=== PATIENT | female | born 1950 | race Caucasian/White ===

== ENCOUNTER 2019-12-17 10:12 | Outpatient (REF) | payer MEDICARE, SELFPAY ==
[2019-12-17 11:11] LABS: MANUAL DIFF FLAG NO
[2019-12-17 11:15] LABS: Basophils Absolute Auto 0.1 X10*3/uL (0.0-0.2); Basophils Percent Auto 1.3 % (0-2); Eosinophils Percent Auto 0.3 % (0-4); Hemoglobin 13.4 g/dl (12.0-16.0); Imm Gran Abs Auto 0.02 X10*3/uL (0.00-0.03); Imm Gran Pct Auto 0.3 % (0.0-0.4); Lymphocytes Percent Auto 43.6 % (20-40); Mean Corpuscular HGB Conc 35.3 g/dl (31.0-35.0); Mean Corpuscular Hemoglobin 40.4 pg (27.0-33.0); Mean Platelet Volume 11.2 fL (9.4-12.3); Monocytes Absolute Auto 0.6 X10*3/uL (0.1-1.2); Monocytes Percent Auto 8.7 % (2-11); NRBC Pct Auto 0.3 /100WBC (0.0-0.2); Neutrophils Absolute Auto 3.2 X10*3/uL (2.0-8.3); Neutrophils Percent Auto 45.8 % (45-73); Platelet Count 194 X10*3/uL (160-400); Red Blood Count 3.32 X10*6/uL (4.20-5.50); Red Cell Distribution Width 13.8 % (11.0-16.0); White Blood Count 6.9 X10*3/uL (4.8-10.8)
[2019-12-17 11:34] LABS: Mean Corpuscular Volume 114.5 fL (80-98)
[2019-12-17 12:04] LABS: Erythrocyte Sedimentation Rate 2 MM/HR (0-20)
[2019-12-17 12:25] LABS: Free T4 (Free Thyroxine) 1.89 ng/dL (0.71-1.85); TSH reflex Free T4 0.01 mIU/mL (0.32-4.0)
[2019-12-17 12:27] LABS: Alanine Aminotransferase 10 U/L (0-31); Albumin Level 4.2 g/dL (3.5-5.0); Alkaline Phosphatase 89 U/L (39-117); Anion Gap 14 (12-20); Aspartate Amino Transferase 11 U/L (5-31); Bilirubin Total 0.7 mg/dL (0.0-1.0); Blood Urea Nitrogen 11 mg/dL (9-16); Calcium 8.9 mg/dL (8.4-10.2); Carbon Dioxide 27 mmol/L (22-29); Chloride 102 mmol/L (96-108); Cholesterol 170 mg/dL; Estimated Glomerular Filt Rate 51; Glucose Fasting 104 mg/dL (60-99); HDL Cholesterol 53 mg/dL; LDL Cholesterol Calculated 88 mg/dl; Lactate Dehydrogenase 131 U/L (122-220); Potassium 4.5 mmol/l (3.3-5.1); Sodium 138 mmol/L (135-145); Total Protein 5.7 g/dL (6.5-8.0); Triglycerides 145 mg/dL
== END 2019-12-17 10:13 | disposition home or self-care (01) ==
LOC: HO.LAB 10:12
PROVIDERS: PCP Internal Medicine Medical Oncology; Visit Provider Internal Medicine Medical Oncology
DX: C85.10 Unspecified B-cell lymphoma, unspecified site (principal); E11.9 Type 2 diabetes mellitus without complications; E78.5 Hyperlipidemia, unspecified
CPT/HCPCS: 36415; 80053; 80061; 83615; 84439; 84443; 85025; 85652

== ENCOUNTER 2020-01-24 09:39 | Outpatient (REF) | payer MEDICARE, SELFPAY ==
[2020-01-24 10:12] LABS: MANUAL DIFF FLAG NO
[2020-01-24 10:18] LABS: Basophils Absolute Auto 0.1 X10*3/uL (0.0-0.2); Eosinophils Percent Auto 0.6 % (0-4); Hematocrit 38.6 % (37-47); Hemoglobin 13.6 g/dl (12.0-16.0); Imm Gran Abs Auto 0.02 X10*3/uL (0.00-0.03); Imm Gran Pct Auto 0.4 % (0.0-0.4); Lymphocytes Absolute Auto 1.5 X10*3/uL (1.2-4.9); Lymphocytes Percent Auto 30.6 % (20-40); Mean Corpuscular HGB Conc 35.2 g/dl (31.0-35.0); Monocytes Absolute Auto 0.5 X10*3/uL (0.1-1.2); Monocytes Percent Auto 10.2 % (2-11); Neutrophils Absolute Auto 2.8 X10*3/uL (2.0-8.3); Neutrophils Percent Auto 56.2 % (45-73); Platelet Count 157 X10*3/uL (160-400)
[2020-01-24 10:21] LABS: Mean Corpuscular Volume 113.5 fL (80-98)
[2020-01-24 10:31] LABS: Alanine Aminotransferase 12 U/L (0-31); Albumin Level 4.5 g/dL (3.5-5.0); Alkaline Phosphatase 89 U/L (39-117); Anion Gap 14 (12-20); Aspartate Amino Transferase 13 U/L (5-31); Bilirubin Total 0.8 mg/dL (0.0-1.0); Blood Urea Nitrogen 8 mg/dL (9-16); Calcium 9.1 mg/dL (8.4-10.2); Carbon Dioxide 26 mmol/L (22-29); Chloride 103 mmol/L (96-108); Cholesterol 193 mg/dL; Estimated Glomerular Filt Rate 47; Glucose Fasting 142 mg/dL (60-99); HDL Cholesterol 60 mg/dL; LDL Cholesterol Calculated 111 mg/dl; Lactate Dehydrogenase 139 U/L (122-220); Potassium 4.2 mmol/l (3.3-5.1); Sodium 139 mmol/L (135-145); Total Protein 5.9 g/dL (6.5-8.0); Triglycerides 110 mg/dL
[2020-01-24 10:51] LABS: SARS COV2 IgG Negative (Negative)
[2020-01-24 10:58] LABS: Erythrocyte Sedimentation Rate 2 MM/HR (0-20)
== END 2020-01-24 09:40 | disposition home or self-care (01) ==
LOC: HO.LAB 09:39
PROVIDERS: PCP Internal Medicine Medical Oncology; Visit Provider Internal Medicine Medical Oncology
DX: C85.10 Unspecified B-cell lymphoma, unspecified site (principal); E11.9 Type 2 diabetes mellitus without complications; I10 Essential (primary) hypertension; E78.5 Hyperlipidemia, unspecified; Z20.828 Contact with and (suspected) exposure to other viral communicable diseases
CPT/HCPCS: 36415; 80053; 80061; 83615; 85025; 85652; 86769; U0003

== ENCOUNTER → 2020-01-31 10:41 | Outpatient (BNVA) | payer MEDICARE, SELFPAY | PROVIDERS: PCP Internal Medicine Medical Oncology; Referring Provider Internal Medicine Medical Oncology; Visit Provider Surgery Vascular Surgery | DX: I73.9 Peripheral vascular disease, unspecified (principal) | CPT/HCPCS: 99202 ==

== ENCOUNTER 2020-02-06 10:30 | Emergency (ER) | payer MEDICARE, SELFPAY ==
[2020-02-06 10:58] VITALS: BP 133/66; PULSE 96; RESP 16; TEMP 36; O2SAT 100; BMI 21.6
[2020-02-06 11:15] VITALS: BP 120/62; PULSE 79; RESP 16; TEMP 37.1; O2SAT 97
--- NOTE | 2020-02-06 11:48 | ED_ITS ---
HPI - General Adult General Chief complaint: Extremity Injury, Lower Stated complaint: lower extremity problem Time Seen by Provider: 02/06/20 11:05 Source: patient Mode of arrival: ambulatory Limitations: no limitations History of Present Illness HPI narrative: 69yoF c PMHx of non-Hodgkin's lymphoma in remission, peripheral artery disease, hyperlipidemia, hypothyroidism, anxiety and depression presenting to the ED c c/o discoloration of the left lateral aspect of the foot on and off for the past month with pain. Denies any injuries. Denies any fevers, chest pain, shortness of breath, palpitations, lower extremity edema. Related Data Home Medications Medication Instructions Recorded Confirmed acyclovir 400 mg tablet 400 mg PO BID 01/31/20 albuterol sulfate 90 mcg/actuation 1 puff PO Q4H PRN 01/31/20 aerosol inhaler levothyroxine 125 mcg tablet 125 mcg PO DAILY 01/31/20 lorazepam 0.5 mg tablet 0.5 mg PO BID PRN 01/31/20 oxycodone 5 mg tablet 5 mg PO Q6H PRN 01/31/20 paroxetine HCl 20 mg tablet 20 mg PO DAILY 01/31/20 trazodone 100 mg tablet 100 mg PO BEDTIME 01/31/20 Previous Rx's Medication Instructions Recorded clopidogrel 75 mg tablet 75 mg PO DAILY #30 tab 01/31/20 Allergies Allergy/AdvReac Type Severity Reaction Status Date / Time adhesive tape Allergy Unknown RASH Verified 02/06/20 10:57 bacitracin [Bacitracin] Allergy Unknown RASH Verified 02/06/20 10:57 bacitracin Allergy Unknown rash Uncoded 07/26/14 00:00 CLOTH TAPE AdvReac Mild RASH Uncoded 11/08/19 16:28 Review of Systems Review of Systems: Constitutional : No Fever, No Chills Eyes: No Eye Pain, No Swelling, No Vision Changes Cardiovascular : No Chest Pain, No SOB, No Dyspnea on Exertion, No Orthopnea, No Edema, No Palpitations Respiratory : No Cough, No Sputum, No Wheezing, No Dyspnea Gastrointestinal : No Nausea, No Vomiting, No Diarrhea, No Constipation, No abdominal Pain, No Hematochezia, No Melena Genitourinary : no irregular bleeding, No Dysuria, No Urinary Frequency, No Hematuria, No Urinary Incontinence, No Urgency, No Flank Pain, No Urinary Flow Changes, No Hesitancy Musculoskeletal : No joint pain, No Myalgias, No Joint Swelling Skin : No Skin Lesions, No rash Neuro : No Weakness, No Numbness, No Paresthesias, No Loss of Consciousness, No Dizziness, No Headache Psych : No Anxiety/Panic, No Depression, No SI/HI/AH/VH, No Social Issues, Heme/Lymph: No Bruising, No Bleeding,No Lymphadenopathy Endocrine : No Polyuria, No Polydipsia, No Temperature Intolerance Yes all other systems are reviewed and are negative ON LICENSE OF [facility] Past Medical History Attestation statement: The following information was validated with the patient. Medical History Anxiety Depression Hypothyroidism Non-Hodgkin lymphoma in remission Surgical History H/O: hysterectomy History of salpingo-oophorectomy Social History Social History Smoking Status: Current every day smoker Tobacco Type: Cigar Packs Per Day: 1 Cigarettes Per Day: 20 Years Smoked: 40 Smoked in Last 30 Days: Yes Use of substances other than those prescribed or required for medical reasons: No Advance Directives: No Advance Directives Information Provided: No Physical Exam Vital Signs: Vital Signs: Last Vital Signs Temp 98.7 F 02/06/20 11:15 Pulse 79 02/06/20 11:15 Resp 16 02/06/20 11:15 BP 120/62 02/06/20 11:15 Pulse Ox 97 02/06/20 11:15 Body Mass Index 21.6 vital signs have been reviewed as normal and appeared to be correct. Blood pressure normal. Heart rate normal. Respiration rate normal. Temperature normal. Oxygen saturation normal. Appearance: Alert. Oriented X3. No acute distress. Head: Normal external exam. Normocephalic. Eyes: PERRLA. EOMI. Conjunctiva and sclera normal. Eyelids normal. ENT: Pharynx normal. Uvula midline. Moist mucous membranes. Neck: Normal inspection. Neck supple. FROM. No adenopathy. No meningeal signs. CVS: Normal heart rate and rhythm. Heart sound normal. No murmurs noted. Pulses normal throughout. Respiratory: No respiratory distress. Painless inspiration. Breath sounds normal. No wheezes/rales/rhonchi noted. Chest nontender. No accessory muscle usage noted or decreased air movement noted. Back: Full range of motion noted. Skin: Skin warm and dry. Normal skin color. Normal skin turgor. No rashes/lesions/lacerations noted. Extremities: No lower extremity edema. No calf tenderness noted. Extremities exhibit normal range of motion. Discoloration with purplish color to left lateral aspect of the foot. Otherwise all other extremities nontender. Neuro: Oriented X 3. No motor deficit. No sensory deficit. Reflexes normal. Course Course Course Narrative: 11:40am - 69yoF c PMHx of non-Hodgkin's lymphoma in remission, peripheral artery disease, hyperlipidemia, hypothyroidism, anxiety and depression presenting to the ED c c/o discoloration of the left lateral aspect of the foot on and off for the past month with pain. - Concern for arterial clot versus peripheral vascular disease - Plan: Labs, CTA of left lower extremity to evaluate for possible arterial clot then re-evaluate. Medical Decision Making Medical Records Medical records reviewed: Yes I reviewed the patient's medical records. Lab Data Lab results reviewed: Yes I reviewed the patient's lab results. Result diagrams: 02/06/20 11:50 02/06/20 11:51 Discharge Plan Discharge Prescriptions: No Action clopidogrel [Plavix] 75 mg tablet 75 mg PO DAILY Qty: 30 RF: 5
[2020-02-06] MEDS: 0.9 % Sodium Chloride 1,000 ML 999 ML IVCONT (11:54)
[2020-02-06 11:58] LABS: Basophils Absolute Auto 0.1 X10*3/uL (0.0-0.2); Basophils Percent Auto 1.3 % (0-2); Eosinophils Percent Auto 0.6 % (0-4); Hematocrit 38.3 % (37-47); Hemoglobin 13.8 g/dl (12.0-16.0); Imm Gran Abs Auto 0.01 X10*3/uL (0.00-0.03); Imm Gran Pct Auto 0.2 % (0.0-0.4); Lymphocytes Absolute Auto 2.4 X10*3/uL (1.2-4.9); Lymphocytes Percent Auto 45.4 % (20-40); MANUAL DIFF FLAG NO; Mean Corpuscular Hemoglobin 40.8 pg (27.0-33.0); Mean Corpuscular Volume 113.3 fL (80-98); Mean Platelet Volume 11.8 fL (9.4-12.3); Monocytes Absolute Auto 0.6 X10*3/uL (0.1-1.2); Monocytes Percent Auto 11.7 % (2-11); Neutrophils Absolute Auto 2.2 X10*3/uL (2.0-8.3); Neutrophils Percent Auto 40.8 % (45-73); Platelet Count 183 X10*3/uL (160-400); Red Blood Count 3.38 X10*6/uL (4.20-5.50); Red Cell Distribution Width 14.7 % (11.0-16.0); White Blood Count 5.4 X10*3/uL (4.8-10.8)
[2020-02-06 12:18] LABS: Partial Thromboplastin Time 31.1 SEC (24.1-38.0)
[2020-02-06 12:28] LABS: Magnesium 2.1 mg/dL (1.6-2.6)
[2020-02-06 12:35] LABS: B Type Natriuretic Peptide 40 pg/mL (<100)
--- NOTE | 2020-02-06 14:34 | US_ITS ---
EXAMINATION: UNILATERAL TRIPLEX SCANNING OF THE LEFT LOWER EXTREMITY CLINICAL INFORMATION: Left lower extremity pain. COMPARISON: None. TECHNIQUE: Color-flow triplex imaging with spectral analysis and compression Doppler were performed on the left lower extremity. FINDINGS: Respiratory variation, normal compression and augmented flow are noted throughout the lower extremity. The visualized common femoral vein, superficial femoral vein, profunda femoral vein, popliteal vein and mid calf peroneal and posterior tibial venous segments show no evidence of deep venous thrombosis. There is no Rodas's cyst. US/US venous duplex LE LT IMPRESSION: Normal triplex scan without evidence of deep venous thrombosis involving the left lower extremity.
--- NOTE | 2020-02-06 14:34 | US_ITS ---
EXAMINATION: LEFT LOWER EXTREMITY DUPLEX DOPPLER ARTERIAL EVALUATION CLINICAL INFORMATION: Left leg numbness and calf pain with discoloration. COMPARISON: None TECHNIQUE: Real-time ultrasound and Doppler techniques (integrating B-mode 2D vascular images, Doppler spectral analysis and color flow Doppler imaging) were utilized to interrogate the left lower extremity. FINDINGS: Common femoral artery has a triphasic waveform with peak systolic velocity of 128 cm/s. Profunda femoral artery has a triphasic waveform with peak systolic velocity of 160 cm/s. The proximal left superficial femoral artery has a triphasic waveform with peak systolic velocity of 71 cm/s. The mid superficial femoral artery has a monophasic waveform with peak systolic velocity of 49 cm/s. There is a focal occlusion with collaterals identified about the mid to lower superficial femoral artery with flow reconstituted within the superficial femoral artery distally. Within a major collateral vessel there is a monophasic waveform with peak systolic velocity of 113 cm/s. The distal superficial femoral artery has a monophasic waveform with peak systolic velocity of 21 cm/s. The popliteal artery has a monophasic waveform with peak systolic velocity of 17 cm/s. The posterior tibial artery has a monophasic waveform with peak systolic velocity of approximately 11 cm/s. The peroneal artery has a monophasic waveform with peak systolic velocity of 12 cm/s.. US/US arterial duplex LE LT IMPRESSION: Segmental occlusion within the mid to distal superficial femoral artery with reconstitution of the distal superficial femoral artery. Large amount of calcified plaque present within the visualized vessels. Findings consistent with severe arterial occlusive disease.
[2020-02-06 15:48] VITALS: BP 114/56; PULSE 79; RESP 20; TEMP 36.9; O2SAT 98
[2020-02-06 16:50] VITALS: BP 121/57; PULSE 68; RESP 18; TEMP 37.2; O2SAT 98
--- NOTE | 2020-02-06 16:51 | PC.NURSE ---
unable to hear pulse in left foot with doppler, can palpate light pulse.
[2020-02-06 18:01] LABS: Alanine Aminotransferase 13 U/L (0-31); Albumin Level 4.2 g/dL (3.5-5.0); Alkaline Phosphatase 90 U/L (39-117); Anion Gap 15 (12-20); Aspartate Amino Transferase 13 U/L (5-31); Bilirubin Direct 0.2 mg/dL (0.0-0.5); Bilirubin Total 0.5 mg/dL (0.0-1.0); Blood Urea Nitrogen 9 mg/dL (9-16); Calcium 8.5 mg/dL (8.4-10.2); Carbon Dioxide 25 mmol/L (22-29); Chloride 103 mmol/L (96-108); Creatinine Clr Calc Pharmacy 45.1; Estimated Glomerular Filt Rate 51; Glucose Random 103 mg/dL (60-115); Potassium 4.6 mmol/l (3.3-5.1); Sodium 138 mmol/L (135-145); Total Protein 5.7 g/dL (6.5-8.0)
== END 2020-02-06 17:23 | disposition home or self-care (01) ==
PROVIDERS: Physician Assistant Medical; Emergency Provider Emergency Medicine; PCP Internal Medicine Medical Oncology
DX: I77.9 Disorder of arteries and arterioles, unspecified (principal); M79.662 Pain in left lower leg; Z85.71 Personal history of Hodgkin lymphoma; Z79.02 Long term (current) use of antithrombotics/antiplatelets; Z79.82 Long term (current) use of aspirin
CPT/HCPCS: 36415; 80048; 80076; 83735; 83880; 85025; 85610; 85730; 93926; 93971; 96360; 99284

== ENCOUNTER 2020-02-13 07:12 | Day surgery (SDC) | payer MEDICARE, SELFPAY ==
[2020-02-13] VITALS (25 sets, daily range): BP systolic 91–138; BP diastolic 30–80; PULSE 61–89; RESP 16–20; TEMP 36.7–37.2; O2SAT 95–100; BMI 21.7
[2020-02-13] MEDS: Lidocaine HCl 1 % MPF 5 ML VIAL 10 ML SUBCUT (10:44)
[2020-02-13] MEDS: iohexoL 300 MG/ML 100 ML INFUS..BTL IV (10:44)
--- NOTE | 2020-02-13 13:31 | PC.NURSE ---
Dr. Bautista called back for follow up. 1. Keep pressure dressing on until 02/14/2020 2. ok to elevate HOB now to 30 degrees oob to ambulate in 30 minutes If ok by 1415 ok to discharge
--- NOTE | 2020-02-13 13:45 | OP_ITS ---
SURGEON: Amandeep Bautista MD INDICATIONS: Merline is a 69-year-old female patient, who had left lower extremity rest pain. It had actually progressed to the point where she did present to the emergency room, was subsequently discharged on narcotics. She now presents for outpatient endovascular intervention. Risks, benefits, and complications were discussed in detail with the patient. The patient understood and consented. PREOPERATIVE DIAGNOSIS: Atherosclerosis with left lower extremity rest pain. POSTOPERATIVE DIAGNOSIS: Atherosclerosis with left lower extremity rest pain. PROCEDURE PERFORMED: ESTIMATED BLOOD LOSS: Minimal. COMPLICATIONS: ANESTHESIA: Local with moderate conscious sedation for a total of 68 minutes performed by me. ASSISTANTS: SPECIMENS: None. PROCEDURES PERFORMED: 1. Ultrasound-guided right common femoral access. 2. Aortogram with left lower extremity runoff. 3. Angioplasty and stent of left SFA. 4. StarClose closure device placement. DESCRIPTION OF PROCEDURE: The patient was brought to the angiography suite, prior to which a time-out was called for patient identification and site verification. Bilateral groins were prepped and draped in standard surgical fashion. Under ultrasound guidance, right common femoral was accessed with micropuncture needle wire. Subsequently, 4-English sheath flush catheter was brought up to the level of the aorta. Aortogram was then undertaken. We brought it to the iliac bifurcation. Iliacs were imaged and the catheter was brought up and over, and parked into the SFA through which runoff study was then undertaken. At this point, 4000 units of systemic heparin was administered. A Glidewire Advantage was used to go up and over, and we were able to traverse this SFA lesion. Once across, we confirmed true lumen with catheter, and once this was accomplished, we then brought up and over 6-English sheath. Once this was accomplished, we plastied this area with a 5 x 30 balloon. Then, subsequently we switched out to a 0.018 wire and we brought in a [place] Viabahn stent into the total occlusion in the mid distal SFA. We deployed this and then we post plastied this with a 5 x 30 balloon. Completion angiogram demonstrated excellent result. StarClose closure device was deployed. At the end the case, sponge and instrument counts were correct. The patient tolerated the procedure well, returned to Recovery with stable vitals. INTERPRETATION OF FILMS: 1. Aortogram demonstrated normal-caliber aorta throughout, appropriate take-off the renals. 2. Right iliac tree demonstrated good flow down to the right side all the way to the common femoral. No significant stenosis noted, although the vessels were smaller in size than anticipated on the left side. 3. I believe on the left side good flow all the way down through the iliacs, good flow to the common femoral profunda had normal takeoff. SFA had good flow all the way down through to the mid distal portion near Robbie's canal. There was a total occlusion reconstituted at the above knee popliteal, good flow below. Good 3-vessel runoff at the origin of the peroneal and the posterior tibial. There was a small stenosis, but it did not appear to be high-grade. Good flow all the way down to the level of the foot. Post stent placement angiogram demonstrated excellent flow through the left SFA. CONCLUSION: Successful angiogram, successful plasty and stent of left SFA. The patient will require a minimum of 6 months of aspirin and Plavix. DRAINS: None. MD DOM Geronimo/MELONY / [phone]
[2020-02-13 16:51] LABS: MANUAL DIFF FLAG NO
[2020-02-13 16:52] LABS: Basophils Absolute Auto 0.1 X10*3/uL (0.0-0.2); Basophils Percent Auto 1.4 % (0-2); Eosinophils Percent Auto 0.6 % (0-4); Hematocrit 33.9 % (37-47); Hemoglobin 11.8 g/dl (12.0-16.0); Imm Gran Abs Auto 0.01 X10*3/uL (0.00-0.03); Imm Gran Pct Auto 0.2 % (0.0-0.4); Lymphocytes Absolute Auto 3.3 X10*3/uL (1.2-4.9); Lymphocytes Percent Auto 49.3 % (20-40); Mean Corpuscular HGB Conc 34.8 g/dl (31.0-35.0); Mean Corpuscular Hemoglobin 40.8 pg (27.0-33.0); Monocytes Absolute Auto 0.7 X10*3/uL (0.1-1.2); Neutrophils Absolute Auto 2.6 X10*3/uL (2.0-8.3); Neutrophils Percent Auto 38.5 % (45-73); Platelet Count 174 X10*3/uL (160-400); Red Blood Count 2.89 X10*6/uL (4.20-5.50); Red Cell Distribution Width 14.7 % (11.0-16.0); White Blood Count 6.6 X10*3/uL (4.8-10.8)
[2020-02-13 17:03] LABS: Prothrombin Time 12.4 SEC (10.8-13.0)
[2020-02-13 17:05] LABS: Partial Thromboplastin Time 30.5 SEC (24.1-38.0)
[2020-02-13 17:15] LABS: Blood Urea Nitrogen 9 mg/dL (9-16); Calcium 7.9 mg/dL (8.4-10.2); Estimated Glomerular Filt Rate 49; Glucose Random 127 mg/dL (60-115)
[2020-02-13 17:23] LABS: Mean Corpuscular Volume 117.3 fL (80-98)
[2020-02-13 17:25] LABS: Anion Gap 10 (12-20); Carbon Dioxide 28 mmol/L (22-29); Chloride 105 mmol/L (96-108); Sodium 139 mmol/L (135-145)
[2020-02-13 18:52] LABS: Anion Gap 11 (12-20); Blood Urea Nitrogen 9 mg/dL (9-16); Calcium 8.1 mg/dL (8.4-10.2); Carbon Dioxide 26 mmol/L (22-29); Chloride 105 mmol/L (96-108); Creatinine Clr Calc Pharmacy 42.6; Estimated Glomerular Filt Rate 48; Glucose Random 116 mg/dL (60-115); Potassium 4.3 mmol/l (3.3-5.1); Sodium 138 mmol/L (135-145)
[2020-02-13] MEDS: traZODone HCL 100 MG TABLET PO (20:32)
[2020-02-13] MEDS: 0.9 % Sodium Chloride 1,000 ML 100 ML IVCONT (20:32)
[2020-02-14 03:00] VITALS: BP 112/54; PULSE 67; RESP 16; TEMP 36.5; O2SAT 99
[2020-02-14 04:00] VITALS: BP 107/49; PULSE 74; RESP 18; TEMP 36.8; O2SAT 100
[2020-02-14] MEDS: 0.9 % Sodium Chloride 1,000 ML 100 ML IVCONT (06:19)
[2020-02-14 08:00] VITALS: BP 106/46; PULSE 67; RESP 20; TEMP 36.8; O2SAT 100
--- NOTE | 2020-02-14 09:21 | MHC.CM.PN ---
CM was unable to reach Patient by phone (Covid Marlo);CM spoke with only contact/Ex-/Mario.Patient lives alone in a 3 family house on the 3rd floor, with Mario living on the 1st floor. Patient had no prior services nor DME [employer] and her goal is to return home, no services. CM has initiated and will follow for dc planning. IMM addressed with Mario and will be mailed out certified letter to him and a copy has been placed on the chart. Brother/Maik is HCP and PCP is Dr. Burt Martínez.
[2020-02-14] MEDS: 0.9 % Sodium Chloride Flush 3 ML SYRINGE IVFLUSH ×2 (09:59)
[2020-02-14] MEDS: Aspirin Enteric Coated 81 MG TABLET.DR PO (09:59)
[2020-02-14] MEDS: Clopidogrel Bisulfate 75 MG TABLET PO (09:59)
--- NOTE | 2020-02-14 10:47 | MHC.CM.PN ---
Patient has been medically cleared for dc to home today, no services.
== END 2020-02-14 11:50 | disposition home or self-care (01) ==
LOC: HO.SSS 11:13 → HO.IMC 02-14 09:47
PROVIDERS: PCP Internal Medicine Medical Oncology; Visit Provider Surgery Vascular Surgery
DX: I70.222 Atherosclerosis of native arteries of extremities with rest pain, left leg (principal); F17.210 Nicotine dependence, cigarettes, uncomplicated; F32.9 Major depressive disorder, single episode, unspecified; C85.80 Other specified types of non-Hodgkin lymphoma, unspecified site; F17.290 Nicotine dependence, other tobacco product, uncomplicated
CPT/HCPCS: 36415; 37226; 75630; 76937; 80048; 85025; 85060; 85610; 85730; 99152; 99153; C1725; C1760; C1769; C1874; C1887; C1894; J2250; J3010; Q9967

== ENCOUNTER → 2020-02-26 14:30 | Outpatient (BNVA) | payer MEDICARE, SELFPAY | PROVIDERS: PCP Internal Medicine Medical Oncology; Visit Provider Surgery Vascular Surgery | DX: I73.9 Peripheral vascular disease, unspecified (principal) | CPT/HCPCS: 99212 ==

== ENCOUNTER 2020-03-21 12:19 | Outpatient (REF) | payer MEDICARE, SELFPAY ==
[2020-03-21 12:46] LABS: MANUAL DIFF FLAG NO
[2020-03-21 12:55] LABS: Basophils Absolute Auto 0.1 X10*3/uL (0.0-0.2); Basophils Percent Auto 1.4 % (0-2); Eosinophils Percent Auto 0.5 % (0-4); Hematocrit 38.4 % (37-47); Hemoglobin 13.5 g/dl (12.0-16.0); Imm Gran Abs Auto 0.01 X10*3/uL (0.00-0.03); Imm Gran Pct Auto 0.2 % (0.0-0.4); Lymphocytes Percent Auto 47.9 % (20-40); Mean Corpuscular HGB Conc 35.2 g/dl (31.0-35.0); Mean Corpuscular Hemoglobin 40.5 pg (27.0-33.0); Mean Platelet Volume 12.3 fL (9.4-12.3); Monocytes Absolute Auto 0.7 X10*3/uL (0.1-1.2); Monocytes Percent Auto 10.4 % (2-11); Neutrophils Absolute Auto 2.5 X10*3/uL (2.0-8.3); Neutrophils Percent Auto 39.6 % (45-73); Platelet Count 240 X10*3/uL (160-400); Red Blood Count 3.33 X10*6/uL (4.20-5.50); White Blood Count 6.3 X10*3/uL (4.8-10.8)
[2020-03-21 13:07] LABS: Mean Corpuscular Volume 115.3 fL (80-98)
[2020-03-21 13:50] LABS: Alanine Aminotransferase 12 U/L (0-31); Albumin Level 4.3 g/dL (3.5-5.0); Alkaline Phosphatase 89 U/L (39-117); Anion Gap 16 (12-20); Aspartate Amino Transferase 12 U/L (5-31); Bilirubin Total 0.7 mg/dL (0.0-1.0); Blood Urea Nitrogen 8 mg/dL (9-16); Calcium 9.1 mg/dL (8.4-10.2); Carbon Dioxide 24 mmol/L (22-29); Chloride 106 mmol/L (96-108); Estimated Glomerular Filt Rate 54; Glucose Random 122 mg/dL (60-115); Lactate Dehydrogenase 149 U/L (122-220); Potassium 4.1 mmol/L (3.3-5.1); Sodium 142 mmol/L (135-145); Total Protein 5.8 g/dL (6.5-8.0)
== END 2020-03-21 12:20 | disposition home or self-care (01) ==
LOC: HO.LAB 12:19
PROVIDERS: PCP Internal Medicine Medical Oncology; Visit Provider Internal Medicine Medical Oncology
DX: C85.10 Unspecified B-cell lymphoma, unspecified site (principal)
CPT/HCPCS: 36415; 80053; 83615; 85025

== ENCOUNTER 2020-05-26 10:16 | Outpatient (REF) | payer MEDICARE, SELFPAY ==
--- NOTE | ~2020-05-26 | US_ITS ---
EXAMINATION: NONINVASIVE ASSESSMENT OF THE ARTERIES OF BOTH LOWER EXTREMITIES WITH PVR EXAM AND BILATERAL LOWER EXTREMITY DUPLEX CLINICAL INFORMATION: Peripheral vascular disease. Post left SFA stent. TECHNIQUE: Ankle pulse volume recordings, ankle pressure measurements and ankle brachial indices were obtained of the lower extremity arterial system bilaterally in addition to duplex Doppler techniques with wave form analysis and measurement of velocities in the common femoral, profunda femoral, superficial femoral, popliteal and tibial arteries. The study was performed only at rest. COMPARISON: Previous exam January 2020 FINDINGS: a) AT REST: RIGHT LE. The right ankle-brachial index is: 1.03 2. Right ankle pressure: Slightly decreased.. 3. Right ankle PVR waveform: normal. 4. Right direct duplex Doppler findings: There is evidence of atherosclerotic disease with vessel wall calcification. * Common femoral artery: 143 cm/s, Diastolic flow reversal: Yes * Superficial femoral artery (proximal, mid, distal): 121, 133 and 127 cm/s, Diastolic flow reversal: Yes * Popliteal artery: 85 cm/s, Diastolic flow reversal: Yes * Posterior tibial artery: 120 cm/s, Diastolic flow reversal: Yes LEFT LE. The left ankle-brachial index is: 0.9 2. Left ankle pressure: Slightly decreased.. 3. Left ankle PVR waveform: normal. 4. Left direct duplex Doppler findings: There is evidence of atherosclerotic disease with vessel wall calcification. There is a stent in the left mid superficial femoral artery. * Common femoral artery: 149 cm/s, Diastolic flow reversal: Yes * Superficial femoral artery (proximal, mid, distal): 86, 161 and 81 cm/s, Diastolic flow reversal: Yes * Popliteal artery: 96 cm/s, Diastolic flow reversal: Yes * Posterior tibial artery: 67 cm/s, Diastolic flow reversal: Yes Flow in the left [place] revision femoral artery proximal to the stent measures 107 mm/s, flow in the proximal segment measures 154 cm/s, flow in the mid segment measures 161 cm/s flow in the distal stent measures 166 cm/s. Flow in the [place] superficial femoral artery distal to the stent measures 81 cm/s. There is normal type triphasic waveform with diastolic flow reversal seen throughout. HONORIO Reference: * >0.97-1.25 = normal - no significant arterial disease * 0.75-0.96 = mild peripheral arterial disease * 0.5-0.74 = moderate peripheral arterial disease * <0.50 = severe peripheral arterial disease US/US HONORIO complete IMPRESSION: The right HONORIO is 1.0 and the left HONORIO is 0.9. There is no evidence of hemodynamically significant stenosis at rest. The left SFA stent is patent. CLINICAL INFORMATION: COMPARISON: None TECHNIQUE: FINDINGS: IMPRESSION:
--- NOTE | ~2020-05-26 | US_ITS ---
EXAMINATION: NONINVASIVE ASSESSMENT OF THE ARTERIES OF BOTH LOWER EXTREMITIES WITH PVR EXAM AND BILATERAL LOWER EXTREMITY DUPLEX CLINICAL INFORMATION: Peripheral vascular disease. Post left SFA stent. TECHNIQUE: Ankle pulse volume recordings, ankle pressure measurements and ankle brachial indices were obtained of the lower extremity arterial system bilaterally in addition to duplex Doppler techniques with wave form analysis and measurement of velocities in the common femoral, profunda femoral, superficial femoral, popliteal and tibial arteries. The study was performed only at rest. COMPARISON: Previous exam January 2020 FINDINGS: a) AT REST: RIGHT LE. The right ankle-brachial index is: 1.03 2. Right ankle pressure: Slightly decreased.. 3. Right ankle PVR waveform: normal. 4. Right direct duplex Doppler findings: There is evidence of atherosclerotic disease with vessel wall calcification. * Common femoral artery: 143 cm/s, Diastolic flow reversal: Yes * Superficial femoral artery (proximal, mid, distal): 121, 133 and 127 cm/s, Diastolic flow reversal: Yes * Popliteal artery: 85 cm/s, Diastolic flow reversal: Yes * Posterior tibial artery: 120 cm/s, Diastolic flow reversal: Yes LEFT LE. The left ankle-brachial index is: 0.9 2. Left ankle pressure: Slightly decreased.. 3. Left ankle PVR waveform: normal. 4. Left direct duplex Doppler findings: There is evidence of atherosclerotic disease with vessel wall calcification. There is a stent in the left mid superficial femoral artery. * Common femoral artery: 149 cm/s, Diastolic flow reversal: Yes * Superficial femoral artery (proximal, mid, distal): 86, 161 and 81 cm/s, Diastolic flow reversal: Yes * Popliteal artery: 96 cm/s, Diastolic flow reversal: Yes * Posterior tibial artery: 67 cm/s, Diastolic flow reversal: Yes Flow in the left [place] revision femoral artery proximal to the stent measures 107 mm/s, flow in the proximal segment measures 154 cm/s, flow in the mid segment measures 161 cm/s flow in the distal stent measures 166 cm/s. Flow in the [place] superficial femoral artery distal to the stent measures 81 cm/s. There is normal type triphasic waveform with diastolic flow reversal seen throughout. HONORIO Reference: * >0.97-1.25 = normal - no significant arterial disease * 0.75-0.96 = mild peripheral arterial disease * 0.5-0.74 = moderate peripheral arterial disease * <0.50 = severe peripheral arterial disease US/US arterial duplex LE BI IMPRESSION: The right HONORIO is 1.0 and the left HONORIO is 0.9. There is no evidence of hemodynamically significant stenosis at rest. The left SFA stent is patent. CLINICAL INFORMATION: COMPARISON: None TECHNIQUE: FINDINGS: IMPRESSION:
== END 2020-05-26 10:17 | disposition home or self-care (01) ==
LOC: HO.US 10:16
PROVIDERS: Visit Provider Surgery Vascular Surgery
DX: I65.29 Occlusion and stenosis of unspecified carotid artery (principal); I70.213 Atherosclerosis of native arteries of extremities with intermittent claudication, bilateral legs
CPT/HCPCS: 93923; 93925

== ENCOUNTER 2020-07-25 11:15 | Outpatient (REF) | payer MEDICARE, SELFPAY ==
[2020-07-25 12:41] LABS: MANUAL DIFF FLAG NO
[2020-07-25 12:58] LABS: Basophils Absolute Auto 0.1 X10*3/uL (0.0-0.2); Basophils Percent Auto 1.3 % (0-2); Eosinophils Percent Auto 0.3 % (0-4); Hematocrit 34.9 % (37-47); Hemoglobin 11.4 g/dl (12.0-16.0); Imm Gran Abs Auto 0.01 X10*3/uL (0.00-0.03); Imm Gran Pct Auto 0.2 % (0.0-0.4); Lymphocytes Absolute Auto 3.2 X10*3/uL (1.2-4.9); Lymphocytes Percent Auto 51.8 % (20-40); Mean Corpuscular HGB Conc 32.7 g/dl (31.0-35.0); Mean Corpuscular Hemoglobin 36.9 pg (27.0-33.0); Mean Platelet Volume 12.4 fL (9.4-12.3); Monocytes Absolute Auto 0.6 X10*3/uL (0.1-1.2); Monocytes Percent Auto 10.1 % (2-11); Neutrophils Absolute Auto 2.2 X10*3/uL (2.0-8.3); Neutrophils Percent Auto 36.3 % (45-73); Platelet Count 196 X10*3/uL (160-400); Red Blood Count 3.09 X10*6/uL (4.20-5.50); Red Cell Distribution Width 16.7 % (11.0-16.0); White Blood Count 6.1 X10*3/uL (4.8-10.8)
[2020-07-25 13:06] LABS: Mean Corpuscular Volume 112.9 fL (80-98)
[2020-07-25 13:21] LABS: Alanine Aminotransferase 7 U/L (0-31); Albumin Level 4.2 g/dL (3.5-5.0); Alkaline Phosphatase 99 U/L (39-117); Anion Gap 14 (12-20); Aspartate Amino Transferase 8 U/L (5-31); Bilirubin Total 0.6 mg/dL (0.0-1.0); Blood Urea Nitrogen 9 mg/dL (9-16); Calcium 9.2 mg/dL (8.4-10.2); Carbon Dioxide 24 mmol/L (22-29); Chloride 106 mmol/L (96-108); Cholesterol 150 mg/dL; Estimated Glomerular Filt Rate 57; Glucose Random 117 mg/dL (60-115); HDL Cholesterol 44 mg/dL; LDL Cholesterol Calculated 80 mg/dl; Lactate Dehydrogenase 149 U/L (122-220); Sodium 140 mmol/L (135-145); Total Protein 5.7 g/dL (6.5-8.0); Triglycerides 131 mg/dL
[2020-07-25 13:46] LABS: Free T4 (Free Thyroxine) 1.44 ng/dL (0.71-1.85); Thyroid Stimulating Hormone 0.46 uIU/mL (0.32-4.0)
[2020-07-25 13:57] LABS: Erythrocyte Sedimentation Rate 14 MM/HR (0-20)
== END 2020-07-25 11:16 | disposition home or self-care (01) ==
LOC: HO.LAB 11:15
PROVIDERS: PCP Internal Medicine Medical Oncology; Visit Provider Internal Medicine Medical Oncology
DX: C85.10 Unspecified B-cell lymphoma, unspecified site (principal); E11.9 Type 2 diabetes mellitus without complications; I10 Essential (primary) hypertension; E78.5 Hyperlipidemia, unspecified; E03.9 Hypothyroidism, unspecified
CPT/HCPCS: 36415; 80053; 80061; 83615; 84439; 84443; 85025; 85652

== ENCOUNTER 2020-08-28 11:38 | Outpatient (REF) | payer MEDICARE, SELFPAY ==
[2020-08-28 12:50] LABS: MANUAL DIFF FLAG NO
[2020-08-28 12:57] LABS: Basophils Absolute Auto 0.1 X10*3/uL (0.0-0.2); Basophils Percent Auto 1.5 % (0-2); Eosinophils Percent Auto 0.2 % (0-4); Hematocrit 34.9 % (37-47); Hemoglobin 11.6 g/dl (12.0-16.0); Imm Gran Abs Auto 0.02 X10*3/uL (0.00-0.03); Imm Gran Pct Auto 0.3 % (0.0-0.4); Lymphocytes Absolute Auto 3.5 X10*3/uL (1.2-4.9); Lymphocytes Percent Auto 52.7 % (20-40); Mean Corpuscular HGB Conc 33.2 g/dl (31.0-35.0); Mean Corpuscular Hemoglobin 36.9 pg (27.0-33.0); Mean Platelet Volume 12.5 fL (9.4-12.3); Monocytes Absolute Auto 0.8 X10*3/uL (0.1-1.2); Monocytes Percent Auto 11.8 % (2-11); NRBC Pct Auto 0.3 /100WBC (0.0-0.2); Neutrophils Absolute Auto 2.2 X10*3/uL (2.0-8.3); Neutrophils Percent Auto 33.5 % (45-73); Platelet Count 310 X10*3/uL (160-400); Red Blood Count 3.14 X10*6/uL (4.20-5.50); Red Cell Distribution Width 15.7 % (11.0-16.0); White Blood Count 6.6 X10*3/uL (4.8-10.8)
[2020-08-28 13:00] LABS: Mean Corpuscular Volume 111.1 fL (80-98)
[2020-08-28 13:21] LABS: Alanine Aminotransferase 11 U/L (0-31); Alkaline Phosphatase 95 U/L (39-117); Anion Gap 13 (12-20); Aspartate Amino Transferase 10 U/L (5-31); Bilirubin Total 0.4 mg/dL (0.0-1.0); Blood Urea Nitrogen 10 mg/dL (9-16); Carbon Dioxide 26 mmol/L (22-29); Chloride 107 mmol/L (96-108); Estimated Glomerular Filt Rate 52; Glucose Random 209 mg/dL (60-115); Potassium 4.3 mmol/L (3.3-5.1); Sodium 142 mmol/L (135-145); Total Protein 5.4 g/dL (6.5-8.0)
== END 2020-08-28 11:39 | disposition home or self-care (01) ==
LOC: HO.LAB 11:38
PROVIDERS: PCP Internal Medicine Medical Oncology; Visit Provider Internal Medicine Medical Oncology
DX: C85.10 Unspecified B-cell lymphoma, unspecified site (principal)
CPT/HCPCS: 36415; 80053; 85025

== ENCOUNTER 2020-09-18 12:21 | Outpatient (REF) | payer MEDICARE, SELFPAY ==
[2020-09-18 13:30] LABS: Basophils Absolute Auto 0.1 X10*3/uL (0.0-0.2); Basophils Percent Auto 1.8 % (0-2); Eosinophils Percent Auto 0.2 % (0-4); Hematocrit 35.5 % (37-47); Imm Gran Abs Auto 0.01 X10*3/uL (0.00-0.03); Imm Gran Pct Auto 0.2 % (0.0-0.4); Lymphocytes Absolute Auto 3.2 X10*3/uL (1.2-4.9); Lymphocytes Percent Auto 62.5 % (20-40); MANUAL DIFF FLAG SCAN; Mean Corpuscular HGB Conc 33.8 g/dl (31.0-35.0); Mean Corpuscular Hemoglobin 37.5 pg (27.0-33.0); Mean Platelet Volume 12.3 fL (9.4-12.3); Monocytes Absolute Auto 0.6 X10*3/uL (0.1-1.2); Monocytes Percent Auto 11.2 % (2-11); Neutrophils Absolute Auto 1.2 X10*3/uL (2.0-8.3); Neutrophils Percent Auto 24.1 % (45-73); Platelet Count 214 X10*3/uL (160-400); Red Cell Distribution Width 14.6 % (11.0-16.0); SCAN SMEAR FLAG 1; White Blood Count 5.1 X10*3/uL (4.8-10.8)
[2020-09-18 13:38] LABS: Mean Corpuscular Volume 110.9 fL (80-98)
[2020-09-18 13:49] LABS: SLIDE REVIEW VERIFIED
[2020-09-18 14:34] LABS: Alanine Aminotransferase 9 U/L (0-31); Albumin Level 4.3 g/dL (3.5-5.0); Alkaline Phosphatase 94 U/L (39-117); Anion Gap 14 (12-20); Aspartate Amino Transferase 13 U/L (5-31); Bilirubin Total 0.8 mg/dL (0.0-1.0); Blood Urea Nitrogen 9 mg/dL (9-16); Calcium 9.5 mg/dL (8.4-10.2); Carbon Dioxide 25 mmol/L (22-29); Chloride 106 mmol/L (96-108); Estimated Glomerular Filt Rate 60; Glucose Random 107 mg/dL (60-115); Potassium 4.2 mmol/L (3.3-5.1); Sodium 141 mmol/L (135-145); Total Protein 5.9 g/dL (6.5-8.0)
== END 2020-09-18 12:22 | disposition home or self-care (01) ==
LOC: HO.LAB 12:21
PROVIDERS: PCP Internal Medicine Medical Oncology; Visit Provider Internal Medicine Medical Oncology
DX: C85.10 Unspecified B-cell lymphoma, unspecified site (principal)
CPT/HCPCS: 36415; 80053; 85025

== ENCOUNTER 2020-09-23 08:15 | Outpatient (REF) | payer MEDICARE, SELFPAY ==
--- NOTE | ~2020-09-23 | MM_ITS ---
EXAMINATION: MM SCREENING DIGITAL BREAST TOMOSYNTHESIS, BILATERAL CLINICAL INFORMATION: Screening. Asymptomatic. The lifetime risk of breast cancer based on the Tyrer-Cuzick Model is 2.0%. COMPARISON: Mammography: September 18, 2019 and studies dating back to October 22, 2015 TECHNIQUE: Digital breast tomosynthesis is performed in both the craniocaudal and mediolateral oblique views along with computer-aided detection (CAD). Synthesized 2D images are generated from the tomosynthesis. FINDINGS: The breasts are extremely dense, which lowers the sensitivity of mammography (ACR BI-RADS breast composition Category d). There are no significant masses, abnormal calcifications, or other abnormalities. MM/MM tomosynthesis screening BI IMPRESSION: There are no significant changes from prior study. ASSESSMENT: BI-RADS 1: Negative RECOMMENDATION: Routine annual mammography screening. This patient's information was entered into a reminder system with a target due date for their next mammogram.
== END 2020-09-23 08:16 | disposition home or self-care (01) ==
LOC: HO.MAMMO 08:15
PROVIDERS: Visit Provider Internal Medicine Medical Oncology
DX: Z12.31 Encounter for screening mammogram for malignant neoplasm of breast (principal)
CPT/HCPCS: 77063; 77067

== ENCOUNTER 2020-09-25 10:24 | Outpatient (REF) | payer MEDICARE, SELFPAY ==
[2020-09-25 10:57] LABS: Basophils Absolute Auto 0.1 X10*3/uL (0.0-0.2); Basophils Percent Auto 2.1 % (0-2); Eosinophils Percent Auto 0.3 % (0-4); Hematocrit 35.7 % (37-47); Hemoglobin 12.2 g/dl (12.0-16.0); Imm Gran Abs Auto 0.01 X10*3/uL (0.00-0.03); Imm Gran Pct Auto 0.3 % (0.0-0.4); Lymphocytes Absolute Auto 2.4 X10*3/uL (1.2-4.9); Lymphocytes Percent Auto 62.7 % (20-40); MANUAL DIFF FLAG SCAN; Mean Corpuscular HGB Conc 34.2 g/dl (31.0-35.0); Mean Corpuscular Hemoglobin 37.5 pg (27.0-33.0); Mean Corpuscular Volume 109.8 fL (80-98); Mean Platelet Volume 12.5 fL (9.4-12.3); Monocytes Absolute Auto 0.4 X10*3/uL (0.1-1.2); Monocytes Percent Auto 11.1 % (2-11); Neutrophils Absolute Auto 0.9 X10*3/uL (2.0-8.3); Neutrophils Percent Auto 23.5 % (45-73); Platelet Count 254 X10*3/uL (160-400); Red Blood Count 3.25 X10*6/uL (4.20-5.50); Red Cell Distribution Width 14.6 % (11.0-16.0); SCAN SMEAR FLAG 1; White Blood Count 3.9 X10*3/uL (4.8-10.8)
[2020-09-25 11:46] LABS: Free T4 (Free Thyroxine) 1.75 ng/dL (0.71-1.85); Thyroid Stimulating Hormone 0.01 uIU/mL (0.32-4.0)
[2020-09-25 12:02] LABS: SLIDE REVIEW VERIFIED
[2020-09-25 12:12] LABS: Erythrocyte Sedimentation Rate 3 MM/HR (0-20)
== END 2020-09-25 10:25 | disposition home or self-care (01) ==
LOC: HO.LAB 10:24
PROVIDERS: PCP Internal Medicine Medical Oncology; Visit Provider Internal Medicine Medical Oncology
DX: C85.10 Unspecified B-cell lymphoma, unspecified site (principal); D72.820 Lymphocytosis (symptomatic); E03.9 Hypothyroidism, unspecified
CPT/HCPCS: 36415; 84439; 84443; 85025; 85652; 88184; 88185

== ENCOUNTER 2020-10-08 06:47 | Outpatient (REF) | payer MEDICARE, SELFPAY ==
--- NOTE | ~2020-10-08 | CT_ITS ---
EXAMINATION: CT CHEST, ABDOMEN AND PELVIS WITH CONTRAST CLINICAL INFORMATION: B-cell lymphoma. Bone marrow transplant. COMPARISON: Most recent CT abdomen/pelvis dated 10/11/2019. Chest radiograph dated 09/26/2019. CT chest/abdomen/pelvis dated 06/27/2017. TECHNIQUE: Contiguous axial thin section helical images of the chest, abdomen and pelvis were performed following the administration of oral contrast and 85 mL of intravenous Omnipaque 350. The data set was reformatted in the coronal and sagittal planes and reviewed on an independent workstation. This CT examination was performed using dose optimization techniques as appropriate, variously including the following: *Automated exposure control *Adjustment of mA and/or kV according to patient size (this includes techniques or standardized protocols for targeted exams where dose is matched to indication/reason for exam; i.e. extremities or head) *Use of iterative reconstruction technique DLP: 403 mGy-cm. FINDINGS: LUNGS: There are multiple small bilateral pulmonary nodules which are unchanged when compared to the CT from 2018. A few of the nodules that were new on the study in 2018 have resolved on the current examination. No new large pulmonary mass or confluent airspace consolidation. Linear scarring redemonstrated within the right middle lobe. The central airways are patent. PLEURA: No pleural effusion or pneumothorax. MEDIASTINUM: No cardiomegaly. No significant pericardial effusion. No thoracic aortic dilatation or dissection. Unremarkable central pulmonary arteries. No significant mediastinal or hilar lymphadenopathy. CHEST WALL/AXILLA: Right chest wall port with its catheter tip in the SVC. No axillary or internal mammary lymphadenopathy. THYROID: Atrophic. LIVER, GALLBLADDER, AND BILIARY TREE: Normal size, shape, and attenuation. No focal hepatic lesion. Focal fatty infiltration redemonstrated adjacent to the falciform ligament. No intrahepatic or extrahepatic biliary ductal dilatation. The gallbladder is unremarkable with no evidence of radiopaque gallstones, gallbladder wall thickening, or obvious pericholecystic inflammatory changes. PANCREAS: Unremarkable. SPLEEN: Unremarkable. ADRENAL GLANDS: Unremarkable. KIDNEYS AND URETERS: Normal size, shape, and attenuation. No hydronephrosis, hydroureter, or calculi. No perinephric stranding. Redemonstration of a simple right renal cyst. BLADDER: Unremarkable. Partially obscured by metallic streak artifact. GASTROINTESTINAL TRACT: No bowel wall thickening or associated inflammatory change. Oral contrast reaches the colon. No small or large bowel obstruction. The appendix is not well seen. No right lower quadrant inflammatory change to suggest acute appendicitis. PERITONEAL CAVITY: No intra-abdominal free air, free fluid, mass, or organized fluid collection. ABDOMINAL WALL: No significant abdominal wall hernia. LYMPH NODES: No significant lymphadenopathy. VASCULAR: Contrast opacifies the abdominal aorta and its branch vessels. No abdominal aortic dilatation or dissection. Prominent atherosclerotic calcifications. The IVC is unremarkable. PELVIC VISCERA: Status post hysterectomy. OSSEOUS STRUCTURES: No concerning lytic or blastic osseous lesion. Left hip arthroplasty. CT/CT abdomen pelvis w con IMPRESSION: 1. No new lymphadenopathy or ascites to suggest disease recurrence. 2. Multiple tiny bilateral pulmonary nodules are unchanged when compared to the prior examination. Additional previously seen nodules which were new on the examination in 2018 are not seen on the current examination. No new pulmonary nodule, mass, or airspace consolidation. 3. No new intra-abdominal mass.
[2020-10-08] MEDS: iohexoL 350 MG/ML 100 ML INFUS..BTL IV (09:56)
== END 2020-10-08 06:48 | disposition home or self-care (01) ==
LOC: HO.CT 06:47
PROVIDERS: PCP Internal Medicine Medical Oncology; Visit Provider Internal Medicine Medical Oncology
DX: C85.10 Unspecified B-cell lymphoma, unspecified site (principal); D72.820 Lymphocytosis (symptomatic); R63.4 Abnormal weight loss; Z94.81 Bone marrow transplant status
CPT/HCPCS: 71260; 74177; Q9967

== ENCOUNTER 2020-10-14 08:19 | Outpatient (REF) | payer MEDICARE, SELFPAY ==
[2020-10-14 09:48] LABS: Basophils Absolute Auto 0.1 X10*3/uL (0.0-0.2); Basophils Percent Auto 1.8 % (0-2); Eosinophils Absolute Auto 0.1 X10*3/uL (0.0-0.4); Eosinophils Percent Auto 1.6 % (0-4); Hematocrit 34.7 % (37-47); Hemoglobin 11.8 g/dl (12.0-16.0); Lymphocytes Absolute Auto 3.2 X10*3/uL (1.2-4.9); Lymphocytes Percent Auto 65.4 % (20-40); MANUAL DIFF FLAG SCAN; Mean Corpuscular Hemoglobin 38.1 pg (27.0-33.0); Mean Platelet Volume 12.9 fL (9.4-12.3); Monocytes Absolute Auto 0.5 X10*3/uL (0.1-1.2); Monocytes Percent Auto 10.9 % (2-11); NRBC Pct Auto 0.4 /100WBC (0.0-0.2); Neutrophils Percent Auto 20.3 % (45-73); Platelet Count 183 X10*3/uL (160-400); Red Cell Distribution Width 15.7 % (11.0-16.0); SCAN SMEAR FLAG 1; White Blood Count 4.9 X10*3/uL (4.8-10.8)
[2020-10-14 09:58] LABS: Mean Corpuscular Volume 111.9 fL (80-98)
[2020-10-14 10:11] LABS: SLIDE REVIEW VERIFIED
[2020-10-14 10:46] LABS: HIV AB/AG Nonreactive (Nonreactive); HIV Num 1 0.06 S/CO (0.00-0.99)
== END 2020-10-14 08:20 | disposition home or self-care (01) ==
LOC: HO.LAB 08:19
PROVIDERS: PCP Internal Medicine Medical Oncology; Visit Provider Internal Medicine Medical Oncology
DX: Z11.4 Encounter for screening for human immunodeficiency virus [HIV] (principal); C85.10 Unspecified B-cell lymphoma, unspecified site; D72.819 Decreased white blood cell count, unspecified; R63.4 Abnormal weight loss
CPT/HCPCS: 36415; 82533; 82550; 85025; 87389

== ENCOUNTER 2020-12-15 11:53 | Outpatient (REF) | payer MEDICARE, SELFPAY ==
[2020-12-15 12:07] LABS: MANUAL DIFF FLAG NO
[2020-12-15 12:57] LABS: Basophils Absolute Auto 0.1 X10*3/uL (0.0-0.2); Basophils Percent Auto 1.9 % (0-2); Eosinophils Percent Auto 0.5 % (0-4); Hematocrit 33.8 % (37-47); Hemoglobin 11.2 g/dl (12.0-16.0); Imm Gran Abs Auto 0.01 X10*3/uL (0.00-0.03); Imm Gran Pct Auto 0.2 % (0.0-0.4); Lymphocytes Absolute Auto 3.3 X10*3/uL (1.2-4.9); Mean Corpuscular HGB Conc 33.1 g/dl (31.0-35.0); Mean Corpuscular Hemoglobin 37.7 pg (27.0-33.0); Mean Platelet Volume 12.2 fL (9.4-12.3); Monocytes Absolute Auto 0.7 X10*3/uL (0.1-1.2); Monocytes Percent Auto 12.2 % (2-11); NRBC Pct Auto 0.9 /100WBC (0.0-0.2); Neutrophils Absolute Auto 1.6 X10*3/uL (2.0-8.3); Neutrophils Percent Auto 28.2 % (45-73); Platelet Count 250 X10*3/uL (160-400); Red Blood Count 2.97 X10*6/uL (4.20-5.50); Red Cell Distribution Width 16.4 % (11.0-16.0); White Blood Count 5.8 X10*3/uL (4.8-10.8)
[2020-12-15 12:58] LABS: Mean Corpuscular Volume 113.8 fL (80-98)
[2020-12-15 13:23] LABS: Alanine Aminotransferase 10 U/L (0-31); Albumin Level 4.1 g/dL (3.5-5.0); Alkaline Phosphatase 85 U/L (39-117); Anion Gap 14 (12-20); Aspartate Amino Transferase 16 U/L (5-31); Bilirubin Total 0.5 mg/dL (0.0-1.0); Blood Urea Nitrogen 11 mg/dL (9-16); Calcium 9.2 mg/dL (8.4-10.2); Carbon Dioxide 26 mmol/L (22-29); Chloride 107 mmol/L (96-108); Estimated Glomerular Filt Rate 54; Glucose Random 113 mg/dL (60-115); Potassium 4.3 mmol/L (3.3-5.1); Sodium 143 mmol/L (135-145); Total Protein 5.5 g/dL (6.5-8.0)
[2020-12-15 13:45] LABS: Free T4 (Free Thyroxine) 1.49 ng/dL (0.71-1.85); Thyroid Stimulating Hormone 0.01 uIU/mL (0.32-4.0)
[2020-12-15 13:59] LABS: Erythrocyte Sedimentation Rate 2 MM/HR (0-20)
== END 2020-12-15 11:54 | disposition home or self-care (01) ==
LOC: HO.LAB 11:53
PROVIDERS: PCP Internal Medicine Medical Oncology; Visit Provider Internal Medicine Medical Oncology
DX: C85.10 Unspecified B-cell lymphoma, unspecified site (principal)
CPT/HCPCS: 36415; 80053; 84439; 84443; 85025; 85652

== ENCOUNTER 2021-01-05 13:15 | Outpatient (REF) | payer MEDICARE, SELFPAY ==
[2021-01-05 13:29] LABS: MANUAL DIFF FLAG NO
[2021-01-05 13:53] LABS: Basophils Absolute Auto 0.1 X10*3/uL (0.0-0.2); Basophils Percent Auto 2.2 % (0-2); Eosinophils Percent Auto 0.2 % (0-4); Hemoglobin 10.7 g/dl (12.0-16.0); Imm Gran Abs Auto 0.01 X10*3/uL (0.00-0.03); Imm Gran Pct Auto 0.2 % (0.0-0.4); Lymphocytes Absolute Auto 2.5 X10*3/uL (1.2-4.9); Lymphocytes Percent Auto 50.4 % (20-40); Mean Corpuscular HGB Conc 33.4 g/dl (31.0-35.0); Mean Corpuscular Hemoglobin 38.6 pg (27.0-33.0); Mean Platelet Volume 12.8 fL (9.4-12.3); Monocytes Absolute Auto 0.7 X10*3/uL (0.1-1.2); Monocytes Percent Auto 14.3 % (2-11); NRBC Pct Auto 0.6 /100WBC (0.0-0.2); Neutrophils Absolute Auto 1.6 x10*3/uL (2.0-8.3); Neutrophils Percent Auto 32.7 % (45-73); Platelet Count 267 X10*3/uL (160-400); Red Blood Count 2.77 X10*6/uL (4.20-5.50); Red Cell Distribution Width 17.2 % (11.0-16.0)
[2021-01-05 13:54] LABS: Mean Corpuscular Volume 115.5 fL (80.0-98.0)
[2021-01-05 14:18] LABS: Alanine Aminotransferase 10 U/L (0-31); Albumin Level 3.9 g/dL (3.5-5.0); Alkaline Phosphatase 85 U/L (39-117); Anion Gap 14 (12-20); Aspartate Amino Transferase 10 U/L (5-31); Bilirubin Total 0.6 mg/dL (0.0-1.0); Blood Urea Nitrogen 11 mg/dL (9-16); Calcium 8.9 mg/dL (8.4-10.2); Carbon Dioxide 24 mmol/L (22-29); Chloride 108 mmol/L (96-108); Cholesterol 140 mg/dL; Estimated Glomerular Filt Rate 51; Glucose Fasting 123 mg/dL (60-99); HDL Cholesterol 51 mg/dL; LDL Cholesterol Calculated 58 mg/dl; Potassium 4.2 mmol/L (3.3-5.1); Sodium 142 mmol/L (135-145); Total Protein 5.2 g/dL (6.5-8.0); Triglycerides 157 mg/dL
[2021-01-05 14:39] LABS: Hemoglobin A1c % < 4.0 %
== END 2021-01-05 13:16 | disposition home or self-care (01) ==
LOC: HO.LAB 13:15
PROVIDERS: PCP Internal Medicine Medical Oncology; Visit Provider Internal Medicine Medical Oncology
DX: C85.10 Unspecified B-cell lymphoma, unspecified site (principal); E11.9 Type 2 diabetes mellitus without complications
CPT/HCPCS: 36415; 80053; 80061; 83036; 85025

== ENCOUNTER 2021-03-05 10:22 | Outpatient (REF) | payer MEDICARE, SELFPAY ==
[2021-03-05 10:35] LABS: MANUAL DIFF FLAG NO
[2021-03-05 11:29] LABS: Basophils Absolute Auto 0.1 X10*3/uL (0.0-0.2); Basophils Percent Auto 1.4 % (0-2); Eosinophils Absolute Auto 0.1 X10*3/uL (0.0-0.4); Eosinophils Percent Auto 2.1 % (0-4); Imm Gran Abs Auto 0.02 X10*3/uL (0.00-0.03); Imm Gran Pct Auto 0.3 % (0.0-0.4); Lymphocytes Absolute Auto 3.3 X10*3/uL (1.2-4.9); Lymphocytes Percent Auto 52.5 % (20-40); Mean Corpuscular HGB Conc 33.3 g/dl (31.0-35.0); Mean Corpuscular Hemoglobin 37.3 pg (27.0-33.0); Mean Platelet Volume 12.7 fL (9.4-12.3); Monocytes Absolute Auto 0.8 X10*3/uL (0.1-1.2); Monocytes Percent Auto 12.6 % (2-11); Neutrophils Percent Auto 31.1 % (45-73); Platelet Count 279 X10*3/uL (160-400); Red Blood Count 2.95 X10*6/uL (4.20-5.50); White Blood Count 6.3 X10*3/uL (4.8-10.8)
[2021-03-05 11:32] LABS: Mean Corpuscular Volume 111.9 fL (80.0-98.0)
[2021-03-05 11:48] LABS: Alanine Aminotransferase 14 U/L (0-31); Albumin Level 3.9 g/dL (3.5-5.0); Alkaline Phosphatase 118 U/L (39-117); Anion Gap 11 (12-20); Aspartate Amino Transferase 14 U/L (5-31); Bilirubin Total 0.5 mg/dL (0.0-1.0); Blood Urea Nitrogen 13 mg/dL (9-16); Calcium 9.1 mg/dL (8.4-10.2); Carbon Dioxide 28 mmol/L (22-29); Chloride 106 mmol/L (96-108); Estimated Glomerular Filt Rate 53; Glucose Random 105 mg/dL (60-115); Lactate Dehydrogenase 175 U/L (122-220); Potassium 3.8 mmol/L (3.3-5.1); Sodium 141 mmol/L (135-145); Total Protein 5.4 g/dL (6.5-8.0)
[2021-03-05 12:17] LABS: Erythrocyte Sedimentation Rate 5 MM/HR (0-20)
== END 2021-03-05 10:23 | disposition home or self-care (01) ==
LOC: HO.LAB 10:22
PROVIDERS: PCP Internal Medicine Medical Oncology; Visit Provider Internal Medicine Medical Oncology
DX: C85.10 Unspecified B-cell lymphoma, unspecified site (principal)
CPT/HCPCS: 36415; 80053; 83615; 85025; 85652

== ENCOUNTER 2021-03-10 08:54 | Inpatient (IN) | payer MEDICARE, SELFPAY ==
[2021-03-10] VITALS (12 sets, daily range): BP systolic 79–140; BP diastolic 30–86; PULSE 72–108; RESP 15–30; TEMP 36.6; O2SAT 85–100; BMI 18.9
--- NOTE | ~2021-03-10 | CT_ITS ---
EXAMINATION: CT ANGIOGRAM OF THE CHEST WITH AND WITHOUT CONTRAST (CT PULMONARY ANGIOGRAM FOR PE) CLINICAL INFORMATION: Reason for Exam Covid PE? Pneumonia? COMPARISON: Previous chest CT September 2020 and chest x-ray from earlier the same day TECHNIQUE: Prior to contrast administration, noncontrast localization images were obtained. Subsequently, multidetector volumetric imaging was performed from the thoracic inlet to below the diaphragms following the administration of 65 mL Omnipaque 350 intravenous contrast. No contrast reaction reported Sagittal, coronal, and MIP oblique sagittal reformatted images were obtained on the CT workstation, uploaded to PACS, and reviewed. This CT examination was performed using dose optimization techniques as appropriate, variously including the following: *Automated exposure control *Adjustment of mA and/or kV according to patient size (this includes techniques or standardized protocols for targeted exams where dose is matched to indication/reason for exam; i.e. extremities or head) *Use of iterative reconstruction technique Total exam dose-length product 200 mGy-cm FINDINGS: QUALITY OF STUDY/CONTRAST BOLUS: Satisfactory. PULMONARY ARTERIES: No central or segmental pulmonary emboli. THORACIC AORTA: No aneurysm or dissection. LUNG: There is biapical pleural and parenchymal scarring. There are increased peripheral interstitial markings. This is seen diffusely throughout the lungs but greatest at the lung bases. Differential would include interstitial lung disease and cicatrization of pulmonary edema. No evidence of acute alveolitis or a pneumonia is seen there is scarring or subsegmental atelectasis seen in the lateral segment of the right middle lobe and right lower lobe. This appears increased from exam September 2020. PLEURA: No pleural effusion or pneumothorax. MEDIASTINUM: Normal heart size. No pericardial effusion. No enlarged hilar or mediastinal lymphadenopathy. No evidence of septal bowing or right heart strain. There is a right jugular port with tip projecting over the SVC. CHEST WALL/AXILLA: No axillary or internal mammary lymphadenopathy. OSSEOUS STRUCTURES: No acute or suspicious osseous abnormality. There are degenerative changes of the thoracic spine. There are postsurgical changes to the lower cervical spine. UPPER ABDOMEN: There is a 2 cm cyst in the upper pole of the right kidney. No reflux of contrast into the hepatic veins to suggest elevated right heart pressures. CT/CT angio chest PE protocol IMPRESSION: No evidence of pulmonary embolism. Increased peripheral interstitial markings. Differential would include interstitial pulmonary edema. Appearance is atypical for Covid infection. Increased scarring or subsegmental atelectasis right lung base. VTE: negative
--- NOTE | ~2021-03-10 | XR_ITS ---
EXAMINATION: XR CHEST CLINICAL INFORMATION: Shortness of breath COMPARISON: Previous chest x-ray September [address] September 2020 TECHNIQUE: Frontal view of the chest was obtained. FINDINGS: The cardiac and mediastinal contours are stable. There is a atelectasis or scarring at the right lung base. This is new or increased from previous chest x-ray September 2019 and similar to previous chest CT September 2020. The lungs are otherwise clear. There is no pleural effusion or pneumothorax. There is a right jugular port with tip projecting over the SVC. There is evidence of surgery to the lower cervical spine. XR/XR chest 1V IMPRESSION: No evidence for acute disease in the chest. Scarring or chronic subsegmental atelectasis at the right lung base similar to chest CT September 2020.
--- NOTE | 2021-03-10 09:40 | ECG_ITS ---
Test Reason : upper respiratory Blood Pressure : / mmHG Vent. Rate : 092 BPM Atrial Rate : 092 BPM P-R Int : 132 ms QRS Dur : 072 ms QT Int : 338 ms P-R-T Axes : 078 069 056 degrees QTc Int : 417 ms Normal sinus rhythm Possible Left atrial enlargement Nonspecific ST abnormality Abnormal ECG When compared with ECG of 19-MAR-2019 12:10, No significant change was found Referred By: Generic ED Physician Electronically Signed By:Burak Lozano
[2021-03-10 10:14] LABS: COVID-19 Test Positive (Negative); IDNOW Serial# 9DD0AD1C
[2021-03-10 10:25] LABS: Anion Gap 13 (12-20); Blood Urea Nitrogen 16 mg/dL (9-16); Calcium 8.8 mg/dL (8.4-10.2); Carbon Dioxide 27 mmol/L (22-29); Chloride 104 mmol/L (96-108); Creatinine Clr Calc Pharmacy 40.3; Estimated Glomerular Filt Rate 51; Glucose Random 106 mg/dL (60-115); Potassium 4.2 mmol/L (3.3-5.1); Sodium 140 mmol/L (135-145)
--- NOTE | 2021-03-10 10:36 | ED.GENADULT ---
HPI - General Adult General Chief complaint: General Medical Stated complaint: COLD-LIKE SYMPTOMS,+VACC Time Seen by Provider: 03/10/21 10:30 Source: patient Mode of arrival: ambulatory Limitations: no limitations History of Present Illness HPI narrative: 70-year-old female in remission from non-Hodgkin's lymphoma presents to the ED for feeling weak and dehydrated the past 2 weeks with cough. Patient states she came back from [place] on the 27 of February and since then started having symptoms described more as fatigue and chronic cough. Patient denies any chest pain or shortness of breath. Patient denies any pleuritic chest pain, swelling of lower extremity, or coughing up blood. Patient states she is vaccinated against COVID. Patient received 2 dose Moderna with Moderna booster. Related Data Home Medications Medication Instructions Recorded Confirmed acyclovir 400 mg tablet 400 mg PO BID 01/31/20 03/10/21 albuterol sulfate 90 mcg/actuation 1 puff PO Q4H PRN 01/31/20 03/10/21 aerosol inhaler levothyroxine 125 mcg tablet 125 mcg PO DAILY@0600 01/31/20 03/10/21 paroxetine HCl 20 mg tablet 20 mg PO DAILY 01/31/20 03/10/21 trazodone 100 mg tablet 100 mg PO BEDTIME 01/31/20 03/10/21 aspirin 81 mg chewable tablet 81 mg PO DAILY 03/10/21 03/10/21 diphenhydramine HCl 25 mg tablet 25 mg PO DAILY PRN 03/10/21 03/10/21 Allergies Allergy/AdvReac Type Severity Reaction Status Date / Time adhesive tape Allergy Unknown RASH Verified 02/26/20 14:39 bacitracin [Bacitracin] Allergy Unknown RASH Verified 02/26/20 14:39 Review of Systems Review of Systems: Only symptoms or cough, and weakness described as fatigue. No chest pain or shortness of breath. Yes all other systems are reviewed and are negative PMFSH Past Medical History Medical History (Updated 03/10/21 @ 17:22 by MARYANN Abdul) Anxiety COPD with asthma Depression Hypothyroidism Non-Hodgkin lymphoma in remission Surgical History H/O: hysterectomy History of salpingo-oophorectomy S/P angiogram of extremity (02/13/20) Social History Social History Household Members: None Housing: Apartment Do you presently have visiting nurse or other home services: No Patient Tobacco Use Status: Current everyday Tobacco user Cigarette Packs Per Day: 1 Cigarettes Per Day: 20 Years Smoked: 40 Second Hand Smoke Exposure: No Use of substances other than those prescribed or required for medical reasons: No Advance Directives: No Advance Directives Information Provided: No service: No Current occupational status: retired Physical Exam Vital Signs: Vital Signs: Last Vital Signs Temp 98 F 03/10/21 09:36 Pulse 89 03/10/21 17:12 Resp 15 03/10/21 17:12 BP 116/30 L 03/10/21 17:12 Pulse Ox 100 03/10/21 17:12 BMI result Body Mass Index 18.9 Const: General: cooperative, healthy appearing, comfortable, no acute distress, well developed, alert, awake and Physically active Orientation/consciousness: patient oriented x3 HENMT: Head: Yes normal to inspection, Yes No palpable skull fracture present, Yes normocephalic, Yes atraumatic and No abrasion Eyes: General: appearance normal, both eyes and all related structures Neck: Neck: Yes normal visual inspection, Yes full ROM, Yes no lymphadenopathy, Yes no meningeal signs, Yes trachea midline, Yes supple, No anterior neck swelling and No tender Chest: Chest palpation & inspection: normal inspection of the chest and normal palpation of entire chest wall Resp: Effort & Inspection: normal respiratory effort and able to speak in complete sentences Auscultation: clear to auscultation bilaterally Cardio: Jugular venous distension: no JVD Heart sounds: S1 normal heart sound present and S2 normal heart sound present GI: Inspection: Yes normal to inspection and No abdominal wall ecchymosis Palpation (GI): Soft to palpation, not firm, nontender, no guarding and not rigid : General: No CVA tenderness and Yes no CVA tenderness Back/Spine/Pelvis: Back: no CVA tenderness, No CVA tenderness and No back tenderness Skin: General skin exam: no rashes or lesions noted and elasticity normal Neuro: Other: Negative facial droop. Negative pronator drift. Negative slurred speech. All extremities equal strength 5+. [id number]-[id number] and rapid hand movement intact. Negative Romberg. Negative pronator drift. NIH score 0 General: patient oriented x3, gait normal, no meningeal signs and CN's II-XI intact bilaterally Cranial nerves: Yes CN's II-XII intact bilaterally Extrem: General: Yes normal to inspection and Yes full ROM Psych: Appearance: grossly normal, well kempt and not disheveled Course Course Course Narrative: Patient had rapid medical screen done which included chest x-ray, COVID swab, and BMP only. I went to the room and patient has not yet been placed in ED room. Other labs ordered including fluids due to vital Signs some wood room cells initial hypertensive. Room presently being clean. 10:37am Reevaluation(s) Reevaluation #1: Patient O2 saturation room between 95-98%. Chest x-ray normal negative for pneumonia. Will give IV fluids and re-evaluated at rest her labs come back. Patient COVID positive. EKG negative STEMI Time: 11:06 Reevaluation #2: On ambulate patient's O2 saturation dropped to 85%.Dextrose, magneisum and, alubterol inhaler inordered. Time: 14:34 Reevaluation #3: Chest CTA negative for PE. Patient admitted for 1 episode of hypoxia and positive COVID. Patient lives alone with history of non Hodgkin's lymphoma patient will benefit from admission. Hospitalist agreeable with plan Time: 17:16 Medical Decision Making [facility] Narrative Medical decision making narrative: Covid hypoxia Lab Data Result diagrams: 03/10/21 11:39 03/10/21 09:50 Labs: Lab Results 03/10/21 03/10/21 03/10/21 Range/Units 09:50 09:50 11:32 WBC (4.8-10.8) X10*3/uL RBC (4.20-5.50) X10*6/uL Hgb (12.0-16.0) g/dl Hct (37.0-47.0) % MCV (80.0-98.0) fL MCH (27.0-33.0) pg MCHC (31.0-35.0) g/dl RDW (11.0-16.0) % Plt Count (160-400) X10*3/uL MPV (9.4-12.3) fL Immature Gran % (Auto) Neut % (Auto) Lymph % (Auto) [place] % (Auto) Eos % (Auto) Baso % (Auto) Lymph # (Auto) [place] # (Auto) Eos # (Auto) Baso # (Auto) Abs Immat Gran (auto) Absolute Neuts (auto) Absolute Nucleated RBC (0.0-0.012) X10*3/uL Nucleated RBC % (auto) (0.0-0.2) /100WBC Neutrophils % (Manual) (45-73) % Band Neutrophils % (3-5) % Lymphocytes % (Manual) (20-40) % Atypical Lymphs % (Man) (0-6) % Monocytes % (Manual) (2-11) % Basophils % (Manual) (0-2) % Abs Neuts (Manual) (2.0-8.3) X10*3/uL Lymphocytes # (Manual) (1.2-4.9) X10*3/uL Atyp Lymphs # (Manual) x10*3/uL Monocytes # (Manual) (0.1-1.2) X10*3/uL Basophils # (Manual) (0.0-0.2) X10*3/uL Platelet Estimate (NORMAL) Plt Morphology Comment RBC Morphology Hypochromasia /OIF Microcytosis /OIF Macrocytosis /OIF Ovalocytes /OIF Kate Cells /OIF Acanthocytes (Spur) /OIF PT 13.9 H (9.9-13.0) SEC INR 1.2 H (0.9-1.1) APTT 69.3 H* (24.1-38.0) SEC D-Dimer High Sensitivty NG/ML Sodium 140 (135-145) mmol/L Potassium 4.2 (3.3-5.1) mmol/L Chloride 104 (96-108) mmol/L Carbon Dioxide 27 (22-29) mmol/L Anion Gap 13 (12-20) BUN 16 (9-16) mg/dL Creatinine 1.06 (0.5-1.4) mg/dL Estim Creat Clear Calc 40.3 Estimated GFR 51 Random Glucose 106 (60-115) mg/dL Calcium 8.8 (8.4-10.2) mg/dL Ferritin (10-250) ng/mL Total Bilirubin 0.6 (0.0-1.0) mg/dL Direct Bilirubin 0.3 (0.0-0.5) mg/dL AST 12 (5-31) U/L ALT 11 (0-31) U/L Alkaline Phosphatase 99 (39-117) U/L Lactate Dehydrogenase (122-220) U/L Total Creatine Kinase (26-140) U/L Troponin I High Sens (<3.5-17.0) ng/L C-Reactive Protein 7.48 H (< or = 0.50) mg/dL Total Protein 5.3 L (6.5-8.0) g/dL Albumin 3.8 (3.5-5.0) g/dL Procalcitonin ng/mL Urine Opiates Screen (Not Detect) Urine Fentanyl Screen (Not Detect) Ur Barbiturates Screen (Not Detect) Ur Phencyclidine Scrn (Not Detect) Ur Amphetamines Screen (Not Detect) U Benzodiazepines Scrn (Not Detect) Urine Cocaine Screen (Not Detect) U Marijuana (THC) Screen (Not Detect) COVID-19 (KEISHA) Positive A (Negative) COVID-19 Clin Com See Note 03/10/21 03/10/21 03/10/21 Range/Units 11:36 11:36 11:39 WBC 4.4 L (4.8-10.8) X10*3/uL RBC 2.67 L (4.20-5.50) X10*6/uL Hgb 9.9 L (12.0-16.0) g/dl Hct 30.0 L (37.0-47.0) % MCV 112.4 H (80.0-98.0) fL MCH 37.1 H (27.0-33.0) pg MCHC 33.0 (31.0-35.0) g/dl RDW 15.6 (11.0-16.0) % Plt Count 225 (160-400) X10*3/uL MPV 12.3 (9.4-12.3) fL Immature Gran % (Auto) Cancelled Neut % (Auto) Cancelled Lymph % (Auto) Cancelled [place] % (Auto) Cancelled Eos % (Auto) Cancelled Baso % (Auto) Cancelled Lymph # (Auto) Cancelled [place] # (Auto) Cancelled Eos # (Auto) Cancelled Baso # (Auto) Cancelled Abs Immat Gran (auto) Cancelled Absolute Neuts (auto) Cancelled Absolute Nucleated RBC 0.000 (0.0-0.012) X10*3/uL Nucleated RBC % (auto) 0.0 (0.0-0.2) /100WBC Neutrophils % (Manual) 53 (45-73) % Band Neutrophils % 1 L (3-5) % Lymphocytes % (Manual) 37 (20-40) % Atypical Lymphs % (Man) 3 (0-6) % Monocytes % (Manual) 3 (2-11) % Basophils % (Manual) 3 H (0-2) % Abs Neuts (Manual) 2.4 (2.0-8.3) X10*3/uL Lymphocytes # (Manual) 1.6 (1.2-4.9) X10*3/uL Atyp Lymphs # (Manual) 0.1 x10*3/uL Monocytes # (Manual) 0.1 (0.1-1.2) X10*3/uL Basophils # (Manual) 0.1 (0.0-0.2) X10*3/uL Platelet Estimate NORMAL (NORMAL) Plt Morphology Comment NORMAL RBC Morphology NOTED Hypochromasia 2+ (15-30) /OIF Microcytosis 1+ (5-14) /OIF Macrocytosis 2+ (15-30) /OIF Ovalocytes 1+ (5-14) /OIF Kate Cells 1+ (0-2) /OIF Acanthocytes (Spur) 1+ (0-2) /OIF PT (9.9-13.0) SEC INR (0.9-1.1) APTT (24.1-38.0) SEC D-Dimer High Sensitivty NG/ML Sodium (135-145) mmol/L Potassium (3.3-5.1) mmol/L Chloride (96-108) mmol/L Carbon Dioxide (22-29) mmol/L Anion Gap (12-20) BUN (9-16) mg/dL Creatinine (0.5-1.4) mg/dL Estim Creat Clear Calc Estimated GFR Random Glucose (60-115) mg/dL Calcium (8.4-10.2) mg/dL Ferritin (10-250) ng/mL Total Bilirubin (0.0-1.0) mg/dL Direct Bilirubin (0.0-0.5) mg/dL AST (5-31) U/L ALT (0-31) U/L Alkaline Phosphatase (39-117) U/L Lactate Dehydrogenase (122-220) U/L Total Creatine Kinase 46 D (26-140) U/L Troponin I High Sens (<3.5-17.0) ng/L C-Reactive Protein (< or = 0.50) mg/dL Total Protein (6.5-8.0) g/dL Albumin (3.5-5.0) g/dL Procalcitonin 0.09 ng/mL Urine Opiates Screen (Not Detect) Urine Fentanyl Screen (Not Detect) Ur Barbiturates Screen (Not Detect) Ur Phencyclidine Scrn (Not Detect) Ur Amphetamines Screen (Not Detect) U Benzodiazepines Scrn (Not Detect) Urine Cocaine Screen (Not Detect) U Marijuana (THC) Screen (Not Detect) COVID-19 (KEISHA) (Negative) COVID-19 Clin Com 03/10/21 03/10/21 03/10/21 Range/Units 11:39 11:39 14:11 WBC (4.8-10.8) X10*3/uL RBC (4.20-5.50) X10*6/uL Hgb (12.0-16.0) g/dl Hct (37.0-47.0) % MCV (80.0-98.0) fL MCH (27.0-33.0) pg MCHC (31.0-35.0) g/dl RDW (11.0-16.0) % Plt Count (160-400) X10*3/uL MPV (9.4-12.3) fL Immature Gran % (Auto) Neut % (Auto) Lymph % (Auto) [place] % (Auto) Eos % (Auto) Baso % (Auto) Lymph # (Auto) [place] # (Auto) Eos # (Auto) Baso # (Auto) Abs Immat Gran (auto) Absolute Neuts (auto) Absolute Nucleated RBC (0.0-0.012) X10*3/uL Nucleated RBC % (auto) (0.0-0.2) /100WBC Neutrophils % (Manual) (45-73) % Band Neutrophils % (3-5) % Lymphocytes % (Manual) (20-40) % Atypical Lymphs % (Man) (0-6) % Monocytes % (Manual) (2-11) % Basophils % (Manual) (0-2) % Abs Neuts (Manual) (2.0-8.3) X10*3/uL Lymphocytes # (Manual) (1.2-4.9) X10*3/uL Atyp Lymphs # (Manual) x10*3/uL Monocytes # (Manual) (0.1-1.2) X10*3/uL Basophils # (Manual) (0.0-0.2) X10*3/uL Platelet Estimate (NORMAL) Plt Morphology Comment RBC Morphology Hypochromasia /OIF Microcytosis /OIF Macrocytosis /OIF Ovalocytes /OIF Kate Cells /OIF Acanthocytes (Spur) /OIF PT (9.9-13.0) SEC INR (0.9-1.1) APTT (24.1-38.0) SEC D-Dimer High Sensitivty NG/ML Sodium (135-145) mmol/L Potassium (3.3-5.1) mmol/L Chloride (96-108) mmol/L Carbon Dioxide (22-29) mmol/L Anion Gap (12-20) BUN (9-16) mg/dL Creatinine (0.5-1.4) mg/dL Estim Creat Clear Calc Estimated GFR Random Glucose (60-115) mg/dL Calcium (8.4-10.2) mg/dL Ferritin 695 H (10-250) ng/mL Total Bilirubin (0.0-1.0) mg/dL Direct Bilirubin (0.0-0.5) mg/dL AST (5-31) U/L ALT (0-31) U/L Alkaline Phosphatase (39-117) U/L Lactate Dehydrogenase 186 (122-220) U/L Total Creatine Kinase (26-140) U/L Troponin I High Sens 4.0 5.2 (<3.5-17.0) ng/L C-Reactive Protein (< or = 0.50) mg/dL Total Protein (6.5-8.0) g/dL Albumin (3.5-5.0) g/dL Procalcitonin ng/mL Urine Opiates Screen (Not Detect) Urine Fentanyl Screen (Not Detect) Ur Barbiturates Screen (Not Detect) Ur Phencyclidine Scrn (Not Detect) Ur Amphetamines Screen (Not Detect) U Benzodiazepines Scrn (Not Detect) Urine Cocaine Screen (Not Detect) U Marijuana (THC) Screen (Not Detect) COVID-19 (KEISHA) (Negative) COVID-19 Clin Com 03/10/21 03/10/21 Range/Units 14:11 15:54 WBC (4.8-10.8) X10*3/uL RBC (4.20-5.50) X10*6/uL Hgb (12.0-16.0) g/dl Hct (37.0-47.0) % MCV (80.0-98.0) fL MCH (27.0-33.0) pg MCHC (31.0-35.0) g/dl RDW (11.0-16.0) % Plt Count (160-400) X10*3/uL MPV (9.4-12.3) fL Immature Gran % (Auto) Neut % (Auto) Lymph % (Auto) [place] % (Auto) Eos % (Auto) Baso % (Auto) Lymph # (Auto) [place] # (Auto) Eos # (Auto) Baso # (Auto) Abs Immat Gran (auto) Absolute Neuts (auto) Absolute Nucleated RBC (0.0-0.012) X10*3/uL Nucleated RBC % (auto) (0.0-0.2) /100WBC Neutrophils % (Manual) (45-73) % Band Neutrophils % (3-5) % Lymphocytes % (Manual) (20-40) % Atypical Lymphs % (Man) (0-6) % Monocytes % (Manual) (2-11) % Basophils % (Manual) (0-2) % Abs Neuts (Manual) (2.0-8.3) X10*3/uL Lymphocytes # (Manual) (1.2-4.9) X10*3/uL Atyp Lymphs # (Manual) x10*3/uL Monocytes # (Manual) (0.1-1.2) X10*3/uL Basophils # (Manual) (0.0-0.2) X10*3/uL Platelet Estimate (NORMAL) Plt Morphology Comment RBC Morphology Hypochromasia /OIF Microcytosis /OIF Macrocytosis /OIF Ovalocytes /OIF [place] Cells /OIF Acanthocytes (Spur) /OIF PT 13.6 H (9.9-13.0) SEC INR 1.2 H (0.9-1.1) APTT 29.0 D (24.1-38.0) SEC D-Dimer High Sensitivty 366 NG/ML Sodium (135-145) mmol/L Potassium (3.3-5.1) mmol/L Chloride (96-108) mmol/L Carbon Dioxide (22-29) mmol/L Anion Gap (12-20) BUN (9-16) mg/dL Creatinine (0.5-1.4) mg/dL Estim Creat Clear Calc Estimated GFR Random Glucose (60-115) mg/dL Calcium (8.4-10.2) mg/dL Ferritin (10-250) ng/mL Total Bilirubin (0.0-1.0) mg/dL Direct Bilirubin (0.0-0.5) mg/dL AST (5-31) U/L ALT (0-31) U/L Alkaline Phosphatase (39-117) U/L Lactate Dehydrogenase (122-220) U/L Total Creatine Kinase (26-140) U/L Troponin I High Sens (<3.5-17.0) ng/L C-Reactive Protein (< or = 0.50) mg/dL Total Protein (6.5-8.0) g/dL Albumin (3.5-5.0) g/dL Procalcitonin ng/mL Urine Opiates Screen Not Detected (Not Detect) Urine Fentanyl Screen Not Detected (Not Detect) Ur Barbiturates Screen Not Detected (Not Detect) Ur Phencyclidine Scrn Not Detected (Not Detect) Ur Amphetamines Screen Not Detected (Not Detect) U Benzodiazepines Scrn Not Detected (Not Detect) Urine Cocaine Screen Not Detected (Not Detect) U Marijuana (THC) Screen Not Detected (Not Detect) COVID-19 (KEISHA) (Negative) COVID-19 Clin Com ECG Data Interpretation: Normal Sinus rhyth, NM Interval 132, QRS Duration 72, QTC 471 and negative for STEMI Discharge Plan Discharge Clinical Impression: COVID-19 Patient Disposition: Admitted As Inpatient
[2021-03-10] MEDS: 0.9 % Sodium Chloride 1,000 ML 999 ML IV ×2 (11:43→11:44)
[2021-03-10 11:47] LABS: Hemoglobin 9.9 g/dl (12.0-16.0); Mean Corpuscular Hemoglobin 37.1 pg (27.0-33.0); Mean Platelet Volume 12.3 fL (9.4-12.3); Platelet Count 225 X10*3/uL (160-400); Red Blood Count 2.67 X10*6/uL (4.20-5.50); Red Cell Distribution Width 15.6 % (11.0-16.0); White Blood Count 4.4 X10*3/uL (4.8-10.8)
[2021-03-10 11:48] LABS: Mean Corpuscular Volume 112.4 fL (80.0-98.0)
[2021-03-10 11:54] LABS: INTERNATIONAL NORM RATIO 1.2 (0.9-1.1); Prothrombin Time 13.9 SEC (9.9-13.0)
[2021-03-10 12:01] LABS: Lactate Dehydrogenase 186 U/L (122-220)
--- NOTE | 2021-03-10 12:03 | PC.NURSE ---
pts bedside monitor read pt SaO2 at 80% - pt was started on 3L O2, informed Keny PA. after intervention and assessment of pt, a different O2 monitor/cord was used and pt SaO2 was at 100% on room air. Vitals have been undone in the system.
[2021-03-10 12:16] LABS: Atypical Lymph Absolute Manual 0.1 x10*3/uL; Atypical Lymphs Percent Manual 3 % (0-6); Band Neutrophils Percent 1 % (3-5); Basophils Abs Manual 0.1 X10*3/uL (0.0-0.2); Basophils Percent Manual 3 % (0-2); Lymphocytes Absolute Manual 1.6 X10*3/uL (1.2-4.9); Lymphocytes Percent Manual 37 % (20-40); Monocytes Absolute Manual 0.1 X10*3/uL (0.1-1.2); Monocytes Percent Manual 3 % (2-11); Neutrophils Absolute Manual 2.4 X10*3/uL (2.0-8.3); Neutrophils Percent Manual 53 % (45-73)
[2021-03-10 12:18] LABS: Acanthocytes 1+ (0-2) /OIF; Burr Cells 1+ (0-2) /OIF; Hypochromasia 2+ (15-30) /OIF; Macrocytosis 2+ (15-30) /OIF; Microcytosis 1+ (5-14) /OIF; Ovalocytes 1+ (5-14) /OIF; RBC Morphology NOTED
[2021-03-10 12:19] LABS: Platelet Estimate NORMAL (NORMAL); Platelet Morphology Comment NORMAL
[2021-03-10 12:22] LABS: Partial Thromboplastin Time 69.3 SEC (24.1-38.0)
[2021-03-10 12:23] LABS: Ferritin 695 ng/mL (10-250)
[2021-03-10 12:43] LABS: Procalcitonin 0.09 ng/mL
[2021-03-10 14:25] LABS: INTERNATIONAL NORM RATIO 1.2 (0.9-1.1); Prothrombin Time 13.6 SEC (9.9-13.0)
--- NOTE | 2021-03-10 14:31 | PHA.MEDREC ---
Pharmacy Consult ? Medication Reconciliation Pharmacy has completed the medication reconciliation. Patient reports she is no longer taking Plavix and only takes baby aspirin. Hina Orlando, PharmD
[2021-03-10 14:37] LABS: Troponin-I High Sensitivity 5.2 ng/L (<3.5-17.0)
[2021-03-10] MEDS: Albuterol/Iprat 2.5/0.5MG 3 ML AMPUL.NEB INHALE (14:43)
[2021-03-10] MEDS: dexAMETHasone sod phosphate 10 MG/ML VIAL IVPUSH (15:13)
[2021-03-10] MEDS: iohexoL 350 MG/ML 100 ML INFUS..BTL 65 ML IV (15:13)
[2021-03-10] MEDS: Magnesium Sulfate/H2O 2 GM/50 ML PIGGYBACK IV (15:18)
--- NOTE | 2021-03-10 15:52 | PM.IMHP ---
History of Present Illness Date of Service: 03/10/21 Chief Complaint: cough 70yo F with PAD, asthma/COPD not on home O2, and hx NHL in remission x 3yr ago, fully vaccinated against Covid-19 with 2 doses of the Moderna mRNA shot plus a booster in January, who presents with 3 days of worsening dry cough and fatigue. She lives alone and has no known sick contacts, but she traveled to [place] and returned on 02/27/21. No fever. No chest pain. She presented hypotensive with BP 79/47, which improved to 113/60 after 2L of IV NS. She was tachycardic and tachypneic. She was wheezing and given 2g of IV magnesium and a 3 mg Duoneb treatment. Room air SaO2 was 97, but dropped to 86 with ambulation. She tested positive for Covid-19 by KEISHA and was given 10mg of dexamethasone. CTA negative for PE. Review of Systems Review of Systems: Yes all other systems are reviewed and are negative [facility] Medical History (Updated 03/10/21 @ 16:14 by Yissel Joshua MD) Anxiety COPD with asthma Depression Hypothyroidism Non-Hodgkin lymphoma in remission Pertinent family history: no VTE Surgical History H/O: hysterectomy History of salpingo-oophorectomy S/P angiogram of extremity (02/13/20) Social History Household Members: None Housing: Apartment Do you presently have visiting nurse or other home services: No Patient Tobacco Use Status: Current everyday Tobacco user Cigarette Packs Per Day: 1 Cigarettes Per Day: 20 Years Smoked: 40 Second Hand Smoke Exposure: No Use of substances other than those prescribed or required for medical reasons: No Advance Directives: No Advance Directives Information Provided: No service: No Current occupational status: retired Meds Allergies Allergy/AdvReac Type Severity Reaction Status Date / Time adhesive tape Allergy Unknown RASH Verified 02/26/20 14:39 bacitracin [Bacitracin] Allergy Unknown RASH Verified 02/26/20 14:39 Active Medications: Current Medications Aspirin (Aspirin 81 Mg Tab.Chew) 81 mg PO DAILY [facility] Dexamethasone Sodium Phosphate (Dexamethasone Sod Phosphate 4 Mg/Ml Vial) 6 mg IVPUSH DAILY [facility] Stop: 03/19/21 09:01 Diphenhydramine HCl (Diphenhydramine Hcl 25 Mg Tablet) 25 mg PO DAILY PRN PRN Reason: Allergy Symptoms Magnesium Sulfate (Magnesium Sulfate/H2o) 2 gm in 50 mls @ 25 mls/hr IV ONCE ONE Stop: 03/10/21 16:29 Last Admin: 03/10/21 15:18 Dose: 25 mls/hr Documented by: Pharmacy Consult (Consult Rx Perform Med Rec) 1 each MISCELLANE ONCE PRN PRN Reason: Consult order Home Medications Medication Instructions Recorded Confirmed Last Taken Type acyclovir 400 mg tablet 400 mg PO BID 01/31/20 03/10/21 03/09/21 History albuterol sulfate 90 mcg/actuation 1 puff PO Q4H PRN 01/31/20 03/10/21 03/09/21 History aerosol inhaler levothyroxine 125 mcg tablet 125 mcg PO DAILY@0600 01/31/20 03/10/21 03/09/21 History paroxetine HCl 20 mg tablet 20 mg PO DAILY 01/31/20 03/10/21 03/09/21 History trazodone 100 mg tablet 100 mg PO BEDTIME 01/31/20 03/10/21 03/09/21 History aspirin 81 mg chewable tablet 81 mg PO DAILY 03/10/21 03/10/21 03/09/21 History diphenhydramine HCl 25 mg tablet 25 mg PO DAILY PRN 03/10/21 03/10/21 Unknown History Physical Exam Vital Signs and Narrative: Vital Signs: Last Vital Signs Temp 98 F 03/10/21 09:36 Pulse 101 H 03/10/21 15:16 Resp 30 H 03/10/21 15:16 BP 113/60 03/10/21 14:39 Pulse Ox 97 03/10/21 15:16 BMI result Body Mass Index 18.9 Gen: in moderate respiratory distress with coughing and tachypnea HEENT: sclera anicteric, moist mucus membranes Neck: supple Lungs: scattered expiratory wheezes Heart: tachycardic no murmurs Abd: soft, non-tender, non-distended Ext: no edema Skin: warm/well-perfused Neuro: alert and oriented x3, no focal findings Psych: appropriate affect Results Labs CBC and Chem 7: 03/10/21 11:39 03/10/21 09:50 Labs: Laboratory Results - last 24 hr 03/10/21 03/10/21 03/10/21 09:50 09:50 11:32 MCV MCH MCHC RDW Plt Count MPV Immature Gran % (Auto) Neut % (Auto) Lymph % (Auto) [place] % (Auto) Eos % (Auto) Baso % (Auto) Lymph # (Auto) [place] # (Auto) Eos # (Auto) Baso # (Auto) Abs Immat Gran (auto) Absolute Neuts (auto) Absolute Nucleated RBC Nucleated RBC % (auto) Neutrophils % (Manual) Band Neutrophils % Lymphocytes % (Manual) Atypical Lymphs % (Man) Monocytes % (Manual) Basophils % (Manual) Abs Neuts (Manual) Lymphocytes # (Manual) Atyp Lymphs # (Manual) Monocytes # (Manual) Basophils # (Manual) Platelet Estimate Plt Morphology Comment RBC Morphology Hypochromasia Microcytosis Macrocytosis Ovalocytes Kate Cells Acanthocytes (Spur) PT 13.9 H INR 1.2 H APTT 69.3 H* Anion Gap 13 Estim Creat Clear Calc 40.3 Estimated GFR 51 Random Glucose 106 Calcium 8.8 Ferritin Lactate Dehydrogenase Total Creatine Kinase Troponin I High Sens Procalcitonin COVID-19 (KEISHA) Positive A COVID-19 Clin Com See Note 03/10/21 03/10/21 03/10/21 11:36 11:36 11:39 MCV 112.4 H MCH 37.1 H MCHC 33.0 RDW 15.6 Plt Count 225 MPV 12.3 Immature Gran % (Auto) Cancelled Neut % (Auto) Cancelled Lymph % (Auto) Cancelled [place] % (Auto) Cancelled Eos % (Auto) Cancelled Baso % (Auto) Cancelled Lymph # (Auto) Cancelled [place] # (Auto) Cancelled Eos # (Auto) Cancelled Baso # (Auto) Cancelled Abs Immat Gran (auto) Cancelled Absolute Neuts (auto) Cancelled Absolute Nucleated RBC 0.000 Nucleated RBC % (auto) 0.0 Neutrophils % (Manual) 53 Band Neutrophils % 1 L Lymphocytes % (Manual) 37 Atypical Lymphs % (Man) 3 Monocytes % (Manual) 3 Basophils % (Manual) 3 H Abs Neuts (Manual) 2.4 Lymphocytes # (Manual) 1.6 Atyp Lymphs # (Manual) 0.1 Monocytes # (Manual) 0.1 Basophils # (Manual) 0.1 Platelet Estimate NORMAL Plt Morphology Comment NORMAL RBC Morphology NOTED Hypochromasia 2+ (15-30) Microcytosis 1+ (5-14) Macrocytosis 2+ (15-30) Ovalocytes 1+ (5-14) Kate Cells 1+ (0-2) Acanthocytes (Spur) 1+ (0-2) PT INR APTT Anion Gap Estim Creat Clear Calc Estimated GFR Random Glucose Calcium Ferritin Lactate Dehydrogenase Total Creatine Kinase 46 D Troponin I High Sens Procalcitonin 0.09 COVID-19 (KEISHA) COVID-19 InRadio Com 03/10/21 03/10/21 03/10/21 11:39 11:39 14:11 MCV MCH MCHC RDW Plt Count MPV Immature Gran % (Auto) Neut % (Auto) Lymph % (Auto) [place] % (Auto) Eos % (Auto) Baso % (Auto) Lymph # (Auto) [place] # (Auto) Eos # (Auto) Baso # (Auto) Abs Immat Gran (auto) Absolute Neuts (auto) Absolute Nucleated RBC Nucleated RBC % (auto) Neutrophils % (Manual) Band Neutrophils % Lymphocytes % (Manual) Atypical Lymphs % (Man) Monocytes % (Manual) Basophils % (Manual) Abs Neuts (Manual) Lymphocytes # (Manual) Atyp Lymphs # (Manual) Monocytes # (Manual) Basophils # (Manual) Platelet Estimate Plt Morphology Comment RBC Morphology Hypochromasia Microcytosis Macrocytosis Ovalocytes Kate Cells Acanthocytes (Spur) PT INR APTT Anion Gap Estim Creat Clear Calc Estimated GFR Random Glucose Calcium Ferritin 695 H Lactate Dehydrogenase 186 Total Creatine Kinase Troponin I High Sens 4.0 5.2 Procalcitonin COVID-19 (KEISHA) COVID-19 Clin Com 03/10/21 14:11 MCV MCH MCHC RDW Plt Count MPV Immature Gran % (Auto) Neut % (Auto) Lymph % (Auto) [place] % (Auto) Eos % (Auto) Baso % (Auto) Lymph # (Auto) [place] # (Auto) Eos # (Auto) Baso # (Auto) Abs Immat Gran (auto) Absolute Neuts (auto) Absolute Nucleated RBC Nucleated RBC % (auto) Neutrophils % (Manual) Band Neutrophils % Lymphocytes % (Manual) Atypical Lymphs % (Man) Monocytes % (Manual) Basophils % (Manual) Abs Neuts (Manual) Lymphocytes # (Manual) Atyp Lymphs # (Manual) Monocytes # (Manual) Basophils # (Manual) Platelet Estimate Plt Morphology Comment RBC Morphology Hypochromasia Microcytosis Macrocytosis Ovalocytes [place] Cells Acanthocytes (Spur) PT 13.6 H INR 1.2 H APTT 29.0 D Anion Gap Estim Creat Clear Calc Estimated GFR Random Glucose Calcium Ferritin Lactate Dehydrogenase Total Creatine Kinase Troponin I High Sens Procalcitonin COVID-19 (KEISHA) COVID-19 Clin Com Imaging Radiologist's Impressions: Impressions Chest X-Ray 03/10/21 10:13 IMPRESSION: No evidence for acute disease in the chest. Scarring or chronic subsegmental atelectasis at the right lung base similar to chest CT September 2020. Assessment and Plan (1) Acute respiratory failure with hypoxia: Status: Acute (2) COVID-19: Status: Acute 70yo fully vaccinated and boosted F with PAD, NHL in remission, and COPD/asthma presenting after 3 days of worsening cough and dyspnea with wheeze, found to be positive for Covid-19 infection. # Covid-19 pneumonia # COPD/asthma exacerbation - admit to [facility], give dexamethasone + remdesivir, consult ID, trend inflammatory markers, prn albuterol HFA # acute hypoxic respiratory failure - supplemental O2, wean as tolerated, encourage awake proning # hypotension - resolved after 2L IV NS # viral sepsis - due to Covid-19 infection, not bacterial infection # PAD - ASA # tobacco abuse - NRT # VTE ppx - LMWH # CODE - DNR/DNI Quality Stroke Does the patient have a stroke diagnosis?: No VTE Prior VTE?: No VTE Risk Level:: Medical - moderate - high VTE Device Contraindication: N/A - Device Ordered VTE Drug Contraindication: N/A - Med Ordered
[2021-03-10 16:08] LABS: D Dimer High Sensitivity 366 NG/ML
[2021-03-10 16:10] LABS: Alanine Aminotransferase 11 U/L (0-31); Albumin Level 3.8 g/dL (3.5-5.0); Alkaline Phosphatase 99 U/L (39-117); Aspartate Amino Transferase 12 U/L (5-31); Bilirubin Direct 0.3 mg/dL (0.0-0.5); Bilirubin Total 0.6 mg/dL (0.0-1.0); C Reactive Protein 7.48 mg/dL (< or = 0.50); Total Protein 5.3 g/dL (6.5-8.0)
[2021-03-10 16:14] LABS: Amphetamine Screen Urine Not Detected (Not Detect); Barbiturates, Urine Not Detected (Not Detect); Benzodiazepines Screen Urine Not Detected (Not Detect); Cannabinoid Screen Urine Not Detected (Not Detect); Cocaine Screen Urine Not Detected (Not Detect); Fentanyl, urine Not Detected (Not Detect); Opiate Screen Urine Not Detected (Not Detect); Phencyclidine Screen Urine Not Detected (Not Detect)
--- NOTE | 2021-03-10 16:56 | PC.NURSE ---
plan for pt to be admit to the hospital, she is aware of the plan. no complaints at this time. only requesting black coffee.
[2021-03-10] MEDS: Remdesivir 200 MG in 0.9 % Sodium Chloride 210 ML 105 MG IV (17:13)
[2021-03-10] MEDS: Enoxaparin Sodium 40 MG/0.4 ML SYRINGE SUBCUT (17:17)
[2021-03-10 17:30] LABS: Lactic Acid 2.2 mmol/L (0.5-2.0)
[2021-03-10 18:15] LABS: Appearance Urine HAZY; Color Urine YELLOW; Glucose Urine UA NEG (NEG); Leukocyte Esterase Urine NEG (NEG); Nitrite Urine NEG (NEG); PH 6.5 (5.0-8.0); Specific Gravity - Urine 1.015 (1.005-1.025); UACC Culture Trigger NO; Urine Blood 2+ (NEG); Urine Ketones NEG (NEG); Urine Protein NEG (NEG-TRACE)
[2021-03-10 18:22] LABS: Bacteria Urine 1+ /LPF; Mucus Urine 2+ /LPF; Squamous Epithelial Cell Urine 3+ /LPF; WBC Urine 0 /HPF (0-4)
[2021-03-10 19:13] LABS: Reflex Lactate? Lactic Acid Added
[2021-03-10 19:49] LABS: ~Lactic Acid-LAB USE ONLY 2.4 mmol/L (0.5-2.0)
[2021-03-10 21:33] LABS: Reflex Lactate? 2 Y
[2021-03-10 22:11] LABS: ~Lactic Acid-LAB USE ONLY 3.9 mmol/L (0.5-2.0)
[2021-03-11] VITALS (7 sets, daily range): BP systolic 89–110; BP diastolic 46–73; PULSE 61–77; RESP 12–22; TEMP 36.8–37.1; O2SAT 98–100
[2021-03-11] MEDS: 0.9 % Sodium Chloride Flush 3 ML SYRINGE IVFLUSH ×2 (00:47→22:16)
[2021-03-11 07:05] LABS: Hematocrit 26.7 % (37.0-47.0); Mean Corpuscular HGB Conc 33.7 g/dl (31.0-35.0); Mean Corpuscular Hemoglobin 37.2 pg (27.0-33.0); PLT CLUMP 1; Red Blood Count 2.42 X10*6/uL (4.20-5.50); Red Cell Distribution Width 14.8 % (11.0-16.0)
[2021-03-11 07:07] LABS: Mean Corpuscular Volume 110.3 fL (80.0-98.0); PLT ABN DIST 1
[2021-03-11 07:32] LABS: Platelet Count 223 X10*3/uL (160-400); White Blood Count 3.6 X10*3/uL (4.8-10.8)
[2021-03-11 07:34] LABS: Alanine Aminotransferase 17 U/L (0-31); Albumin Level 3.3 g/dL (3.5-5.0); Alkaline Phosphatase 97 U/L (39-117); Anion Gap 12 (12-20); Aspartate Amino Transferase 20 U/L (5-31); Bilirubin Total 0.2 mg/dL (0.0-1.0); Blood Urea Nitrogen 19 mg/dL (9-16); Calcium 8.5 mg/dL (8.4-10.2); Carbon Dioxide 25 mmol/L (22-29); Chloride 106 mmol/L (96-108); Creatinine Clr Calc Pharmacy 50.2; Estimated Glomerular Filt Rate > 60; Glucose Random 205 mg/dL (60-115); Potassium 4.5 mmol/L (3.3-5.1); Sodium 138 mmol/L (135-145); Total Protein 4.7 g/dL (6.5-8.0)
[2021-03-11] MEDS: Aspirin 81 MG TAB.CHEW PO (07:44)
[2021-03-11] MEDS: dexAMETHasone sod phosphate 4 MG/ML VIAL 6 MG IVPUSH (07:44)
[2021-03-11] MEDS: Levothyroxine Sodium 125 MCG TABLET PO (08:41)
[2021-03-11] MEDS: 0.9 % Sodium Chloride 1,000 ML 125 ML IVCONT (08:42)
--- NOTE | 2021-03-11 09:17 | MHC.CM.PN ---
CM ATTEMPTED TO CONTACT PT VIA T/C ([phone]) DUE TO HER COVID-19 POSITIVE STATUS. PT DID NOT ANSWER AND THERE WAS NO ABILITY TO LEAVE A VM MESSAGE. CM ATTEMPTED TO CONTACT PTS PRIMARY HCP AGENT, VERITO VILLALPANDONO AT BOTH NUMBERS LISTED, [phone] (OUT OF SERVICE) AND [phone] (GOES TO A LAW OFFICE). CM ATTEMPTED TO CONTACT PTS ALTERNATE HCP, ARIANA TOYA ([phone]) HOWEVER HER PHONE WAS ALSO OUT OF SERVICE. CM CALLED PTS PRIMARY CONTACT, RUTH PUENTE ([phone]). RUTH REPORTS HE IS THE PTS EX- AND [place]. HE REPORTS SHE LIVES ON THE 3RD FLOOR OF THE MULTI-FAMILY HOME HE OWNS, HE LIVES ON THE 1ST FLOOR. HE REPORTS THE PT IS INDEPENDENT WITH CARE AT BASELINE. HE SAYS SHE DID HAVE [facility] FOR PT FOLLOWING A HIP FRACTURE ABOUT 1.5 MONTHS AGO, BUT HE BELIEVES THAT WAS DISCONTINUED. HE DOES NOT BELIEVE SHE HAS ANY SERVICES AT THIS TIME. RUTH DOES CONFIRM THE NUMBER LISTED FOR THE PT ([phone]) IS HER CELL PHONE. PTS PCP IS DANIEL SMITH. SHE HAS A HCP ON FILE, HOWEVER THE PHONE NUMBERS APPEAR TO BE OUT OF DATE. PTS MEDICARE RIGHTS WERE EXPLAINED TO RUTH AND A COPY WILL BE MAILED TO HER HOME. CURRENT DC PLAN: HOME WITH NO SERVICES VS HOME WITH [facility] TRANSPORTATION UNKNOWN AT THIS TIME
[2021-03-11] MEDS: Acyclovir 200 MG CAPSULE 400 MG PO ×2 (09:58→22:15)
[2021-03-11] MEDS: PARoxetine HCL 20 MG TABLET PO (09:58)
--- NOTE | 2021-03-11 11:49 | MHC.CM.PN ---
Patient remains in ER as admitted patient. Per Dr Joshua, patient will discharge home in 2-3 days with [facility]. Cameron GARZONA is following patient for d/c needs.
--- NOTE | 2021-03-11 14:29 | PC.NURSE ---
Assisted pt oob and with ambulation to bathroom. RN aware
--- NOTE | 2021-03-11 15:06 | HO.PM.IMPN ---
Subjective Subjective Date of Service: 03/11/21 Interval History: Still coughing quite a bit. Somewhat short of breath. Continues to wheeze. No fever. Review of Systems Review of Systems: Yes all other systems are reviewed and are negative Physical Exam Vital Signs: Vital Signs: Last Vital Signs Temp 98.7 F 03/11/21 11:33 Pulse 66 03/11/21 11:33 Resp 13 03/11/21 11:33 BP 110/47 L 03/11/21 11:33 Pulse Ox 99 03/11/21 11:33 BMI result Body Mass Index 18.9 Gen: NAD, coughing HEENT: sclera anicteric, moist mucus membranes Neck: supple Lungs: scattered expiratory wheezes Heart: RRR, no m/r/g Abd: soft, non-tender, non-distended Ext: no edema Skin: warm/well-perfused Neuro: alert and oriented x3, no focal findings Psych: appropriate affect Objective Data Active Medications Acetaminophen (Acetaminophen 325 Mg Tablet) 650 mg PO Q6H PRN PRN Reason: Pain, Mild (Pain Scale 1-3) Acyclovir (Acyclovir 200 Mg Capsule) 400 mg PO BID [facility] Last Admin: 03/11/21 09:58 Dose: 400 mg Documented by: DELVIS Albuterol Sulfate (Albuterol Sulfate 90 Mcg 8 Gm Inhaler) 4 puff INHALE Q2H PRN PRN Reason: dyspnea/wheeze Aspirin (Aspirin 81 Mg Tab.Chew) 81 mg PO DAILY [facility] Last Admin: 03/11/21 07:44 Dose: 81 mg Documented by: DELVIS Dexamethasone Sodium Phosphate (Dexamethasone Sod Phosphate 4 Mg/Ml Vial) 6 mg IVPUSH DAILY [facility] Stop: 03/19/21 09:01 Last Admin: 03/11/21 07:44 Dose: 6 mg Documented by: DELVIS Diphenhydramine HCl (Diphenhydramine Hcl 25 Mg Tablet) 25 mg PO DAILY PRN PRN Reason: Allergy Symptoms Enoxaparin Sodium (Enoxaparin Sodium 40 Mg/0.4 Ml Syringe) 40 mg SUBCUT Q24H [facility] Last Admin: 03/10/21 17:17 Dose: 40 mg Documented by: HERMAN Remdesivir 100 mg/ Sodium (Chloride) 230 mls @ 115 mls/hr IV Q24H [facility] Stop: 03/14/21 18:29 Sodium Chloride (Ns) 1,000 mls @ 125 mls/hr IVCONT .Q8H [facility] Stop: 03/11/21 16:29 Last Admin: 03/11/21 08:42 Dose: 125 mls/hr Documented by: DELVIS Levothyroxine Sodium (Levothyroxine Sodium 125 Mcg Tablet) 125 mcg PO DAILY@0600 [facility] Last Admin: 03/11/21 08:41 Dose: 125 mcg Documented by: DELVIS Nicotine Polacrilex (Nicotine Polacrilex 2 Mg Gum) 2 mg BUCCAL Q2H PRN PRN Reason: nicotine cravings Ondansetron HCl (Ondansetron Hcl 4 Mg/2 Ml Vial) 4 mg IVPUSH Q8H PRN PRN Reason: Nausea and Vomiting Paroxetine HCl (Paroxetine Hcl 20 Mg Tablet) 20 mg PO DAILY [facility] Last Admin: 03/11/21 09:58 Dose: 20 mg Documented by: DELVIS Pharmacy Consult (Consult Rx Perform Med Rec) 1 each MISCELLANE ONCE PRN PRN Reason: Consult order Sodium Chloride (0.9 % Sodium Chloride Flush 3 Ml Syringe) 3 ml IVFLUSH QSHIFT [facility] Last Admin: 03/11/21 10:46 Dose: Not Given Documented by: DELVIS Non-Admin Reason: Med Not Available Trazodone HCl (Trazodone Hcl 100 Mg Tablet) 100 mg PO BEDTIME [facility] Labs CBC & Chem 7: 03/11/21 06:42 03/11/21 06:42 Labs: Laboratory Results - last 24 hr 03/10/21 03/10/21 03/10/21 09:50 14:11 15:54 MCV MCH MCHC RDW Plt Count MPV Absolute Nucleated RBC Nucleated RBC % (auto) D-Dimer High Sensitivty 366 Anion Gap Estim Creat Clear Calc Estimated GFR Random Glucose Lactic Acid Lactic Acid F/U @ 2Hr Lactic Acid F/U @ 4Hr Calcium Total Bilirubin 0.6 Direct Bilirubin 0.3 AST 12 ALT 11 Alkaline Phosphatase 99 C-Reactive Protein 7.48 H Total Protein 5.3 L Albumin 3.8 Urine Color Urine Appearance Urine pH Ur Specific [place] Urine Protein Urine Glucose (UA) Urine Ketones Urine Blood Urine Nitrite Ur Leukocyte Esterase Urine RBC Urine WBC Ur Squamous Epith Cells Urine Bacteria Urine Mucus Urine Opiates Screen Not Detected Urine Fentanyl Screen Not Detected Ur Barbiturates Screen Not Detected Ur Phencyclidine Scrn Not Detected Ur Amphetamines Screen Not Detected U Benzodiazepines Scrn Not Detected Urine Cocaine Screen Not Detected U Marijuana (THC) Screen Not Detected 03/10/21 03/10/21 03/10/21 17:10 18:09 19:25 MCV MCH MCHC RDW Plt Count MPV Absolute Nucleated RBC Nucleated RBC % (auto) D-Dimer High Sensitivty Anion Gap Estim Creat Clear Calc Estimated GFR Random Glucose Lactic Acid 2.2 H* Lactic Acid F/U @ 2Hr 2.4 H* Lactic Acid F/U @ 4Hr Calcium Total Bilirubin Direct Bilirubin AST ALT Alkaline Phosphatase C-Reactive Protein Total Protein Albumin Urine Color YELLOW Urine Appearance HAZY Urine pH 6.5 Ur Specific [place] 1.015 Urine Protein NEG Urine Glucose (UA) NEG Urine Ketones NEG Urine Blood 2+ H Urine Nitrite NEG Ur Leukocyte Esterase NEG Urine RBC 5-9 H Urine WBC 0 Ur Squamous Epith Cells 3+ Urine Bacteria 1+ Urine Mucus 2+ Urine Opiates Screen Urine Fentanyl Screen Ur Barbiturates Screen Ur Phencyclidine Scrn Ur Amphetamines Screen U Benzodiazepines Scrn Urine Cocaine Screen U Marijuana (THC) Screen 03/10/21 03/11/21 03/11/21 21:50 06:42 06:42 MCV 110.3 H MCH 37.2 H MCHC 33.7 RDW 14.8 Plt Count 223 MPV Not Reportable Absolute Nucleated RBC 0.000 Nucleated RBC % (auto) 0.0 D-Dimer High Sensitivty Anion Gap 12 Estim Creat Clear Calc 50.2 Estimated GFR > 60 Random Glucose 205 H Lactic Acid Lactic Acid F/U @ 2Hr Lactic Acid F/U @ 4Hr 3.9 H* Calcium 8.5 Total Bilirubin 0.2 Direct Bilirubin AST 20 D ALT 17 Alkaline Phosphatase 97 C-Reactive Protein Total Protein 4.7 L Albumin 3.3 L Urine Color Urine Appearance Urine pH Ur Specific [place] Urine Protein Urine Glucose (UA) Urine Ketones Urine Blood Urine Nitrite Ur Leukocyte Esterase Urine RBC Urine WBC Ur Squamous Epith Cells Urine Bacteria Urine Mucus Urine Opiates Screen Urine Fentanyl Screen Ur Barbiturates Screen Ur Phencyclidine Scrn Ur Amphetamines Screen U Benzodiazepines Scrn Urine Cocaine Screen U Marijuana (THC) Screen Assessment and Plan (1) COVID-19: Status: Acute Assessment and Plan: hospital d#2 70yo fully vaccinated and boosted F with PAD, NHL in remission, and COPD/asthma presenting after 3 days of worsening cough and dyspnea with wheeze, found to be positive for Covid-19 infection. # breakthrough Covid-19 pneumonia # COPD/asthma exacerbation - dexamethasone d#2, remdesivir d#2, ID consult - trend inflammatory markers, prn albuterol HFA # acute hypoxic respiratory failure - supplemental O2, wean as tolerated, encourage awake proning # hypotension - resolved after 2L IV NS # viral sepsis # lactic acidosis - due to Covid-19 infection, not bacterial infection # PAD - ASA # tobacco abuse - NRT # NHL in remission - continue prophylactic acyclvovir # hypothyroidism - continue LT4 # mood disorder - continue trazodone + parozetine # VTE ppx - LMWH Quality Stroke Does the patient have a stroke diagnosis?: No VTE Prior VTE?: No VTE Risk Level:: Medical - moderate - high VTE Device Contraindication: N/A - Device Ordered VTE Drug Contraindication: N/A - Med Ordered
[2021-03-11] MEDS: Remdesivir 100 MG in 0.9 % Sodium Chloride 230 ML 115 MG IV (17:08)
[2021-03-11] MEDS: Enoxaparin Sodium 40 MG/0.4 ML SYRINGE SUBCUT (17:08)
[2021-03-11] MEDS: traZODone HCL 100 MG TABLET PO (20:08)
--- NOTE | 2021-03-11 20:47 | PC.NURSE ---
awaiting acyclovir from pharmacy
--- NOTE | 2021-03-11 21:15 | PC.NURSE ---
Report called to overflow RN
--- NOTE | 2021-03-11 23:11 | W.PM.IDCN ---
History of Present Illness Data of Consult Service Date: 03/11/21 Requesting physician: Yissel Joshua Primary Care Provider: Burt Juarez MD HPI Reason for consult: shortness of breath,lymphoma She presents to hospital with three days shortness of breath and cough. She has recently returned from [place]. She is on 2liters oxygen now Review of Systems Review of Systems: Yes all other systems are reviewed and are negative [facility] Past Medical History Medical History (Updated 03/13/21 @ 00:02 by Moni Fitzgerald) Anxiety COPD with asthma Depression Hypothyroidism Non-Hodgkin lymphoma in remission Surgical History Surgical History H/O: hysterectomy History of salpingo-oophorectomy S/P angiogram of extremity (02/13/20) Social History Social History Household Members: None Housing: House Do you presently have visiting nurse or other home services: No Patient Tobacco Use Status: Current everyday Tobacco user Tobacco use type: Cigarette Cigarette Packs Per Day: 1 Cigarettes Per Day: 20.0 Years Smoked: 40 Second Hand Smoke Exposure: No service: No Current occupational status: retired Meds Allergies Allergy/AdvReac Type Severity Reaction Status Date / Time adhesive tape Allergy Unknown RASH Verified 02/26/20 14:39 bacitracin [Bacitracin] Allergy Unknown RASH Verified 02/26/20 14:39 Active Medications: Current Medications Acetaminophen (Acetaminophen 325 Mg Tablet) 650 mg PO Q6H PRN PRN Reason: Pain, Mild (Pain Scale 1-3) Acyclovir (Acyclovir 200 Mg Capsule) 400 mg PO BID COUNTS INCLUDE 234 BEDS AT THE [facility] Last Admin: 03/11/21 22:15 Dose: 400 mg Documented by: Albuterol Sulfate (Albuterol Sulfate 90 Mcg 8 Gm Inhaler) 4 puff INHALE Q2H PRN PRN Reason: dyspnea/wheeze Aspirin (Aspirin 81 Mg Tab.Chew) 81 mg PO DAILY COUNTS INCLUDE 234 BEDS AT THE [facility] Last Admin: 03/11/21 07:44 Dose: 81 mg Documented by: Dexamethasone Sodium Phosphate (Dexamethasone Sod Phosphate 4 Mg/Ml Vial) 6 mg IVPUSH DAILY COUNTS INCLUDE 234 BEDS AT THE [facility] Stop: 03/19/21 09:01 Last Admin: 03/11/21 07:44 Dose: 6 mg Documented by: Diphenhydramine HCl (Diphenhydramine Hcl 25 Mg Tablet) 25 mg PO DAILY PRN PRN Reason: Allergy Symptoms Enoxaparin Sodium (Enoxaparin Sodium 40 Mg/0.4 Ml Syringe) 40 mg SUBCUT Q24H COUNTS INCLUDE 234 BEDS AT THE [facility] Last Admin: 03/11/21 17:08 Dose: 40 mg Documented by: Remdesivir 100 mg/ Sodium (Chloride) 230 mls @ 115 mls/hr IV Q24H COUNTS INCLUDE 234 BEDS AT THE [facility] Stop: 03/14/21 18:29 Last Infusion: 03/11/21 21:25 Dose: Infused Documented by: Levothyroxine Sodium (Levothyroxine Sodium 125 Mcg Tablet) 125 mcg PO DAILY@0600 COUNTS INCLUDE 234 BEDS AT THE [facility] Last Admin: 03/11/21 08:41 Dose: 125 mcg Documented by: Nicotine Polacrilex (Nicotine Polacrilex 2 Mg Gum) 2 mg BUCCAL Q2H PRN PRN Reason: nicotine cravings Ondansetron HCl (Ondansetron Hcl 4 Mg/2 Ml Vial) 4 mg IVPUSH Q8H PRN PRN Reason: Nausea and Vomiting Paroxetine HCl (Paroxetine Hcl 20 Mg Tablet) 20 mg PO DAILY COUNTS INCLUDE 234 BEDS AT THE [facility] Last Admin: 03/11/21 09:58 Dose: 20 mg Documented by: Pharmacy Consult (Consult Rx Perform Med Rec) 1 each MISCELLANE ONCE PRN PRN Reason: Consult order Sodium Chloride (0.9 % Sodium Chloride Flush 3 Ml Syringe) 3 ml IVFLUSH QSHIFT COUNTS INCLUDE 234 BEDS AT THE [facility] Last Admin: 03/11/21 22:16 Dose: 3 ml Documented by: Trazodone HCl (Trazodone Hcl 100 Mg Tablet) 100 mg PO BEDTIME COUNTS INCLUDE 234 BEDS AT THE [facility] Last Admin: 03/11/21 20:08 Dose: 100 mg Documented by: Home Medications Medication Instructions Recorded Confirmed Last Taken Type acyclovir 400 mg tablet 400 mg PO BID 01/31/20 03/10/21 03/09/21 History albuterol sulfate 90 mcg/actuation 1 puff PO Q4H PRN 01/31/20 03/10/21 03/09/21 History aerosol inhaler levothyroxine 125 mcg tablet 125 mcg PO DAILY@0600 01/31/20 03/10/21 03/09/21 History paroxetine HCl 20 mg tablet 20 mg PO DAILY 01/31/20 03/10/21 03/09/21 History trazodone 100 mg tablet 100 mg PO BEDTIME 01/31/20 03/10/21 03/09/21 History aspirin 81 mg chewable tablet 81 mg PO DAILY 03/10/21 03/10/21 03/09/21 History diphenhydramine HCl 25 mg tablet 25 mg PO DAILY PRN 03/10/21 03/10/21 Unknown History Physical Exam Vital Signs: Vital Signs: Last Vital Signs Temp 98.4 F 03/11/21 20:01 Pulse 77 03/11/21 20:01 Resp 22 H 03/11/21 20:01 BP 97/48 L 03/11/21 20:01 Pulse Ox 98 03/11/21 20:01 BMI result Body Mass Index 18.9 Const: General: cooperative Eyes: General: appearance normal, both eyes and all related structures Pupils: Equal, round and reactive pupils present Resp: Other: shortness of breath Effort & Inspection: not able to speak in complete sentences Cardio: Rate: regular rate Rhythm: regular rhythm GI: Palpation (GI): Soft to palpation and nontender Neuro: Cranial nerves: Yes Equal, round and reactive pupils present Extrem: General: Yes normal to inspection Results Labs CBC & Chem 7: 03/12/21 05:52 03/12/21 05:52 Labs: Short CBC 03/11/21 Range/Units 06:42 WBC 3.6 L (4.8-10.8) X10*3/uL Hgb 9.0 L (12.0-16.0) g/dl Hct 26.7 L (37.0-47.0) % Plt Count 223 (160-400) X10*3/uL BMP 03/11/21 06:42 Sodium 138 Potassium 4.5 Chloride 106 Carbon Dioxide 25 BUN 19 H Creatinine 0.85 Calcium 8.5 Liver Function 03/11/21 Range/Units 06:42 Total Bilirubin 0.2 (0.0-1.0) mg/dL AST 20 D (5-31) U/L ALT 17 (0-31) U/L Alkaline Phosphatase 97 (39-117) U/L Albumin 3.3 L (3.5-5.0) g/dL Assessment and Plan (1) COVID-19: Status: Acute She has mild if any hypoxia She says she has had symptoms severe for three days but may have had some starting as far back as 02/27/2021 Plan Would continue Dexamethasone Would continue Remdesivir only if needing oxygen tomorrow. No antibiotics VTE prophylaxis
[2021-03-12 02:05] VITALS: BP 108/50; PULSE 89; RESP 12; TEMP 36.4; O2SAT 96
--- NOTE | 2021-03-12 02:10 | PC.NURSE ---
Patient on room air - resting comfortably, denies pain. non prod cough, but no SOB. Plan to get admitted to [facility] [place] [facility].
[2021-03-12 04:00] VITALS: BP 106/51; PULSE 75; RESP 18; TEMP 37.4; O2SAT 98
[2021-03-12] MEDS: Levothyroxine Sodium 125 MCG TABLET PO (05:31)
[2021-03-12 06:41] LABS: D Dimer High Sensitivity 219 NG/ML
[2021-03-12 06:49] LABS: Alanine Aminotransferase 19 U/L (0-31); Albumin Level 3.4 g/dL (3.5-5.0); Alkaline Phosphatase 94 U/L (39-117); Anion Gap 11 (12-20); Aspartate Amino Transferase 14 U/L (5-31); Bilirubin Total 0.2 mg/dL (0.0-1.0); Blood Urea Nitrogen 25 mg/dL (9-16); C Reactive Protein 4.97 mg/dL (< or = 0.50); Calcium 8.8 mg/dL (8.4-10.2); Carbon Dioxide 28 mmol/L (22-29); Chloride 107 mmol/L (96-108); Creatinine Clr Calc Pharmacy 45.7; Estimated Glomerular Filt Rate > 60; Glucose Random 126 mg/dL (60-115); Potassium 4.1 mmol/L (3.3-5.1); Sodium 142 mmol/L (135-145); Total Protein 4.8 g/dL (6.5-8.0)
[2021-03-12 06:58] LABS: Hematocrit 28.6 % (37.0-47.0); Hemoglobin 9.6 g/dl (12.0-16.0); Mean Corpuscular HGB Conc 33.6 g/dl (31.0-35.0); Mean Corpuscular Hemoglobin 37.4 pg (27.0-33.0); Mean Platelet Volume 12.8 fL (9.4-12.3); Platelet Count 196 X10*3/uL (160-400); Red Blood Count 2.57 X10*6/uL (4.20-5.50); Red Cell Distribution Width 15.3 % (11.0-16.0)
[2021-03-12 06:59] LABS: Mean Corpuscular Volume 111.3 fL (80.0-98.0)
[2021-03-12 07:00] LABS: WBC ABN SCTR FOR CBC 1
[2021-03-12 07:38] LABS: White Blood Count 7.7 X10*3/uL (4.8-10.8)
[2021-03-12 08:00] VITALS: BP 106/58; PULSE 88; RESP 18; TEMP 37.2; O2SAT 96
[2021-03-12] MEDS: dexAMETHasone sod phosphate 4 MG/ML VIAL 6 MG IVPUSH (10:03)
[2021-03-12] MEDS: Aspirin 81 MG TAB.CHEW PO (10:03)
[2021-03-12] MEDS: Acyclovir 200 MG CAPSULE 400 MG PO (10:03)
[2021-03-12] MEDS: 0.9 % Sodium Chloride Flush 3 ML SYRINGE IVFLUSH (10:03)
[2021-03-12] MEDS: PARoxetine HCL 20 MG TABLET PO (10:04)
--- NOTE | 2021-03-12 11:37 | MHC.CM.PN ---
Per ROUNDS discussion, Patient will be medically cleared for dc to home today, with services. A referral was made to NA, who has been informed of dc. Last IMM addressed yesterday.
--- NOTE | 2021-03-12 11:59 | PM.DS ---
DS: Providers Provider Date of Service: 03/12/21 Date of admission: 03/10/21 16:16 Primary care physician: Burt Juarez MD Consults: 03/10/21 15:42 Consult to Infectious Diseases Routine Consulting Provider: Mary Alice Alfaro Reason for consultation: covid/hypoxia DS: Diagnosis Discharge Diagnosis (1) COVID-19: Status: Acute DS: Summary Hospital Course Hospital Course: Chief Complaint: cough 70yo F with PAD, asthma/COPD not on home O2, and hx NHL in remission x 3yr ago, fully vaccinated against Covid-19 with 2 doses of the Moderna mRNA shot plus a booster in January, who presents with 3 days of worsening dry cough and fatigue. ? She lives alone and has no known sick contacts, but she traveled to [place] and returned on 02/27/21.? No fever.? No chest pain.? She presented hypotensive with BP 79/47, which improved to 113/60 after 2L of IV NS. ? She was tachycardic and tachypneic.? She was wheezing and given 2g of IV magnesium and a 3 mg Duoneb treatment.? Room air SaO2 was 97, but dropped to 86 with ambulation. ? She tested positive for Covid-19 by KEISHA and was given 10mg of dexamethasone.? CTA negative for PE. 70yo fully vaccinated and boosted F with PAD, NHL in remission, and COPD/asthma presented after 3 days of worsening cough and dyspnea with wheeze, found to be positive for Covid-19 infection, admitted to medical floor with a diagnosis of viral sepsis and mild hypoxic respiratory failure patient treated with dexamethasone and remdesivir with good response, hypoxia resolved patient has been ambulating without worsening shortness of breath therefore being discharged home on 4 more days of dexamethasone to finish a total 7 day course, patient has been advised to continue isolation, rest drink plenty of fluids, and completely abstain from smoking, use Nicorette gums for cravings as needed. Initially noted to be hypotensive therefore received 2 L of normal saline blood pressure improved In regard to chronic medical issues including peripheral arterial disease, non-Hodgkin's lymphoma in remission and hypothyroidism patient has been recommended to continue acyclovir levothyroxine seen and asa. In regard to mood disorder continue trazodone and paroxetine Time Spent with Patient Time attestation: Total time spent providing and/or coordinating discharge services: Discharge coordination time: Greater than 30 minutes Quality: Stroke Does the patient have a stroke diagnosis?: No Physical Exam Vital Signs: Vital Signs: Last Vital Signs Temp 99.0 F 03/12/21 08:00 Pulse 88 03/12/21 08:00 Resp 18 03/12/21 08:00 BP 106/58 L 03/12/21 08:00 Pulse Ox 96 03/12/21 08:00 BMI result Body Mass Index 18.9 Gen: Awake alert in no distress intermittent coughing HEENT: sclera anicteric, moist mucus membranes Neck: supple Lungs: Clear to auscultation diminished, no rhonchi, no wheeze Heart: RRR, no m/r/g Abd: soft, non-tender, non-distended Ext: no edema Skin: warm/well-perfused Neuro: alert and oriented x3, no focal findings Psych: appropriate affect DS: Data Data Completed and Pending Labs on day of discharge: Laboratory Results - last 24 hr 03/12/21 03/12/21 03/12/21 05:52 05:52 05:52 WBC 7.7 RBC 2.57 L Hgb 9.6 L Hct 28.6 L MCV 111.3 H MCH 37.4 H MCHC 33.6 RDW 15.3 Plt Count 196 MPV 12.8 H Absolute Nucleated RBC 0.000 Nucleated RBC % (auto) 0.0 D-Dimer High Sensitivty 219 Sodium 142 Potassium 4.1 Chloride 107 Carbon Dioxide 28 Anion Gap 11 L BUN 25 H Creatinine 0.92 Estim Creat Clear Calc 45.7 Estimated GFR > 60 Random Glucose 126 H Calcium 8.8 Total Bilirubin 0.2 AST 14 ALT 19 Alkaline Phosphatase 94 C-Reactive Protein 4.97 H Total Protein 4.8 L Albumin 3.4 L Discharge Plan Discharge Patient Disposition: Home Health Service Discharge Diagnosis: Acute hypoxic respiratory failure due to COVID 19 Referrals: Burt Juarez MD [Primary Care Provider] - 1 Week Discharge Medications: New nicotine (polacrilex) 2 mg Gum 2 mg buccal Q2H PRN (Reason: nicotine cravings) Qty: 60 RF: 0 Robitussin Cough-Chest Maxx DM 5-100 mg/5 mL liquid 10 ml PO Q4-8H PRN (Reason: cough) Qty: 237 RF: 0 dexamethasone [Decadron] 6 mg tablet 6 mg PO DAILY Qty: 4 RF: 0 Continued diphenhydramine HCl 25 mg Tablet 25 mg PO DAILY PRN (Reason: Allergy Symptoms) RF: 0 aspirin 81 mg Tablet,Chewable 81 mg PO DAILY RF: 0 Discharge Orders: Discharge Order (Routine); Ordered 03/12/21 Ordered By: Giovanni Browning Diet: advance to usual diet Activity on Discharge: As tolerated Stand Alone Forms: Patient Portal Discharge page Care Plan Goals: Hypoxic respiratory failure resolved, rest, take Decadron for 4 more days, continue isolation for 1 more week, use mask in public Health Concerns: Hypothyroidism, nicotine use disorder take all home medications as before, strongly recommend to abstain from smoking, take Nicorette gums as needed Plan of Treatment: Outpatient follow-up with primary care physician in 7-10 days Assessment: Per discharge summary
[2021-03-12 12:00] VITALS: BP 98/47; PULSE 82; RESP 20; TEMP 37; O2SAT 95
--- NOTE | 2021-03-12 13:31 | MHC.CM.PN ---
Patient will dc to home today at 2PM, [place] [facility] [place].
--- NOTE | 2021-03-12 13:44 | P.F2F_ITS ---
Service Date Service Date: 03/12/21 Encounter Date of encounter: 03/12/21 Reasons for Services Signs and symptoms assessed: Shortness of breath/hypoxia improved Reason for long-term: medication management Homebound: Leaving the home is medically contraindicated at this time without the asist of a device and/or another person due th the listed conditions above and below. Reason homebound: weakness related to hospital stay Certification: Based on the above findings, I certify that this patient is confined to the home and needs intermittent long-term care, physical therapy and/or speech therapy, or continues to need occupational therapy. The patient is under my care, and I have initiated the establishment of the plan of care. The patient will be followed by a physician who will periodically review the plan of care.
[2021-03-12] MEDS: Heparin Sodium,Porcine Flush 50 UNITS/5 ML SYRINGE IVFLUSH (13:49)
== END 2021-03-12 14:00 | disposition home health service (06) | DRG 871 ==
LOC: HO.ED 10:57 → HO.EDOVER 16:40 → HO.IMC 03-12 01:42
PROVIDERS: Physician Assistant; Admitting Provider Family Medicine; Emergency Provider Emergency Medicine; PCP Internal Medicine Medical Oncology; Visit Provider Hospitalist
DX: A41.89 Other specified sepsis (principal); U07.1 COVID-19; J96.01 Acute respiratory failure with hypoxia; J12.82 Pneumonia due to coronavirus disease 2019; C85.90 Non-Hodgkin lymphoma, unspecified, unspecified site; J45.901 Unspecified asthma with (acute) exacerbation; J44.1 Chronic obstructive pulmonary disease with (acute) exacerbation; E03.9 Hypothyroidism, unspecified; F17.210 Nicotine dependence, cigarettes, uncomplicated; Z71.6 Tobacco abuse counseling; I73.9 Peripheral vascular disease, unspecified; I95.9 Hypotension, unspecified; F39 Unspecified mood [affective] disorder; Z79.82 Long term (current) use of aspirin; Z79.890 Hormone replacement therapy; Z79.899 Other long term (current) drug therapy; Z66 Do not resuscitate
CPT/HCPCS: 36415; 71045; 71275; 80048; 80053; 80076; 80307; 81001; 82550; 82728; 83605; 83615; 84145; 84484; 85007; 85025; 85027; 85379; 85610; 85730; 86140; 87635; 93005; 94640; 96361; 96365; 96366; 96375; 99285; J0248; J1100; J1642; J1650; J3475; Q9967

== ENCOUNTER 2021-03-26 11:05 | Observation (INO) | payer MEDICARE, SELFPAY ==
[2021-03-26] VITALS (11 sets, daily range): BP systolic 100–122; BP diastolic 41–70; PULSE 69–84; RESP 16–18; TEMP 36.6–37.2; O2SAT 97–100; BMI 18.4
--- NOTE | ~2021-03-26 | CT_ITS ---
EXAMINATION: CT HEAD WITHOUT CONTRAST CT CERVICAL SPINE WITHOUT CONTRAST CLINICAL INFORMATION: Fall. Syncope. COMPARISON: CT head from 04/09/2018. TECHNIQUE: Contiguous axial imaging was performed from the skull base to vertex without intravenous administration of contrast. Contiguous axial imaging was performed from the upper chest through the skull base without intravenous administration of contrast. Coronal and sagittal reformats were obtained at the acquisition workstation. This CT examination was performed using dose optimization techniques as appropriate, variously including the following: *Automated exposure control. *Adjustment of mA and/or kV according to patient size (this includes techniques or standardized protocols for targeted exams where dose is matched to indication/reason for exam; i.e. extremities or head). *Use of iterative reconstruction technique. DLP: 843 mGy-cm FINDINGS: Head: Of note, there is residual contrast on this exam from recent CT of the chest, abdomen, and pelvis. There is no evidence of acute intracranial hemorrhage or edematous territorial infarction. Scattered hypoattenuation in the periventricular and deep white matter are consistent with moderate microangiopathy. Manning-white matter differentiation is preserved. Proportional prominence of the ventricles and sulcal spaces. No evidence for obstructive hydrocephalus. No abnormal mass effect or midline shift. No extra-axial fluid collections. No acute soft tissue or osseous abnormalities. Moderate mucosal thickening of the paranasal sinuses. Layering fluid within the right sphenoid air cell. The mastoid air cells and middle ear cavities are clear. Cervical Spine: Instrumented anterior fusion of C6-C7. No evidence of hardware fracture or loosening. Mild reversal the normal cervical lordosis centered on C5-C6. Mild degenerative anterolisthesis of C4 on C5. The atlantooccipital and atlantoaxial articulations remain well aligned. Moderate degenerative arthropathy of the atlantodental articulation. No evidence of acute fracture or subluxation. The vertebral body heights and disc spaces are maintained. Advanced degenerative disc disease at C5-C6. Moderate degenerative disc disease at C4-C5 and T1-T2. Facet and uncovertebral joint arthropathy leads osseous encroachment on the neural foramina from C5-T1. There is no prevertebral soft tissue swelling. Right-sided chest port in place. The thyroid gland and remaining cervical soft tissues are normal in appearance. Biapical pleural scarring. CT/CT cervical spine wo con IMPRESSION: 1. No evidence of acute intracranial hemorrhage or edematous territorial infarction. Moderate underlying migraine angiopathy and generalized cerebral volume loss. 2. Instrumented anterior fusion of C6-C7. No evidence of acute fracture or traumatic subluxation of the cervical spine. Moderate multilevel degenerative spinal arthropathy of the cervical spine.
--- NOTE | ~2021-03-26 | CT_ITS ---
EXAMINATION: CTA CHEST, and ABDOMEN AND PELVIS WITH CONTRAST CLINICAL INFORMATION: Syncope, question PE and left lower quadrant pain COMPARISON: 10/08/2020 TECHNIQUE: Multidetector volumetric imaging was performed from the thoracic inlet through the pubic symphysis following administration of oral and 61 mL of Omnipaque 350 intravenous contrast. Sagittal and coronal reformatted images were obtained on the technologist workstation. MIP reconstructions reviewed This CT examination was performed using dose optimization techniques as appropriate, variously including the following: *Automated exposure control *Adjustment of mA and/or kV according to patient size (this includes techniques or standardized protocols for targeted exams where dose is matched to indication/reason for exam; i.e. extremities or head) *Use of iterative reconstruction technique DLP: 311 mGy-cm FINDINGS: CHEST: LUNGS: Multiple focal groundglass peripheral infiltrates subpleural location consistent atypical infection including Covid 19. Tiny nodules unchanged. PULMONARY ARTERIES: No evidence for acute or chronic pulmonary embolism. MEDIASTINUM: The mediastinum is normal. Central vascular structures are unremarkable. No hilar or mediastinal lymphadenopathy. No evidence for any elevated right heart pressures. PERICARDIUM/PLEURA: There is no significant effusion. No pleural mass or thickening. CHEST WALL/AXILLA: Unremarkable. ABDOMEN/PELVIS: LIVER, GALLBLADDER, BILIARY TREE: The liver is normal in size, shape, and attenuation. No focal hepatic lesion or biliary ductal dilatation is present. The gallbladder is unremarkable with no evidence of radiopaque gallstones, gallbladder wall thickening, or pericholecystic inflammatory changes. PANCREAS: Unremarkable. SPLEEN: Unremarkable. ADRENAL GLANDS: Unremarkable. KIDNEYS AND URETERS: The kidneys are normal in size, shape, and attenuation. No hydronephrosis or hydroureter or calculi seen. No perinephric stranding. Right-sided renal cortical cysts noted. BLADDER: Unremarkable. GASTROINTESTINAL TRACT: Collapsed but diffuse thickening of the distal colon consistent with nonspecific colitis from the level the sigmoid colon the rectum. No obstruction or pneumatosis intestinalis. No small bowel pathology. ABDOMINAL WALL: No hernia is demonstrated. LYMPH NODES: Normal. VASCULAR: Unremarkable. PELVIC VISCERA: Limited assessment due to streak artifact from patient's left hip prosthesis. OSSEOUS STRUCTURES: Unremarkable. CT/CT angio chest PE protocol IMPRESSION: 1. No evidence for acute or chronic pulmonary embolism. 2. Nonspecific mild colitis distal colon. 3. Changes of Covid 19 or atypical infection. VTE: Negative
--- NOTE | 2021-03-26 11:57 | ECG_ITS ---
Test Reason : Syncope Blood Pressure : / mmHG Vent. Rate : 076 BPM Atrial Rate : 076 BPM P-R Int : 154 ms QRS Dur : 082 ms QT Int : 398 ms P-R-T Axes : 075 052 040 degrees QTc Int : 447 ms Normal sinus rhythm Normal ECG When compared with ECG of 10-MAR-2021 09:53, No significant change was found Referred By: Keny Do Electronically Signed By:EDY MONROY
[2021-03-26] MEDS: 0.9 % Sodium Chloride 1,000 ML 999 ML IV (12:09)
[2021-03-26 12:14] LABS: Appearance Urine CLEAR; Color Urine STRAW; Glucose Urine UA NEG (NEG); Leukocyte Esterase Urine NEG (NEG); Nitrite Urine NEG (NEG); Specific Gravity - Urine <= 1.005 (1.005-1.025); UACC Culture Trigger NO; Urine Blood TRACE (NEG); Urine Ketones NEG (NEG); Urine Protein NEG (NEG-TRACE)
--- NOTE | 2021-03-26 12:18 | PC.NURSE ---
pt alert and oriented. pt sent to ed from PCP's office to be evaluated for both increased HR and respirations. pt reports that she went to her PCP to get her Port flushed and he recommended her to come to the ed. pt's current HR mid to high 60s, respirations 16, o2 sat 100% R/A. PT also states that on Tuesday she had a syncopal episode at home. she states that she was sitting on a chair in her kitchen and the next thing she remembers is her friend waking her up and she was on the floor. pt denies any pain before or after episode. she is unaware if she hit her head
[2021-03-26 12:20] LABS: Hematocrit 28.7 % (37.0-47.0); Hemoglobin 9.5 g/dl (12.0-16.0); Mean Corpuscular HGB Conc 33.1 g/dl (31.0-35.0); Mean Corpuscular Hemoglobin 36.5 pg (27.0-33.0); Mean Platelet Volume 13.2 fL (9.4-12.3); PLT CLUMP 1; Red Cell Distribution Width 16.8 % (11.0-16.0)
[2021-03-26 12:26] LABS: Mean Corpuscular Volume 110.4 fL (80.0-98.0); Platelet Count 226 X10*3/uL (160-400); White Blood Count 5.1 X10*3/uL (4.8-10.8)
--- NOTE | 2021-03-26 12:30 | ED_ITS ---
HPI - General Adult General Chief complaint: General Medical Stated complaint: INCREASED WEAKNESS FROM MD OFFICE PER EMS Time Seen by Provider: 03/26/21 11:10 Source: patient Mode of arrival: ambulatory Limitations: no limitations History of Present Illness HPI narrative: 71-year-old female past medical history of lymphoma COPD, and diabetes, Covid presents to the ED for evaluation by her PCP. I spoke with Dr. Juarez her Oncologist/PCP who states patient syncopized at home this past Tuesday. Patient herself admits to passing out on Tuesday. Patient states she is watching television and she woke up on the floor. Patient states she had no symptoms before passing out. Dr. Juarez states today patient came to our office for for regular checkup and patient was tachypneic with respiratory rate of 33, and heart rate of 120. When he evaluated patient patient found to have significant left lower quadrant tenderness. Related Data Home Medications Medication Instructions Recorded Confirmed acyclovir 400 mg tablet 400 mg PO BID 01/31/20 03/10/21 albuterol sulfate 90 mcg/actuation 1 puff PO Q4H PRN 01/31/20 03/10/21 aerosol inhaler levothyroxine 125 mcg tablet 125 mcg PO DAILY@0600 01/31/20 03/10/21 paroxetine HCl 20 mg tablet 20 mg PO DAILY 01/31/20 03/10/21 trazodone 100 mg tablet 100 mg PO BEDTIME 01/31/20 03/10/21 aspirin 81 mg chewable tablet 81 mg PO DAILY 03/10/21 03/10/21 diphenhydramine HCl 25 mg tablet 25 mg PO DAILY PRN 03/10/21 03/10/21 Previous Rx's Medication Instructions Recorded dexamethasone 6 mg tablet 6 mg PO DAILY #4 tab 03/12/21 (Decadron) dextromethorphan-guaifenesin 5 10 ml PO Q4-8H PRN #237 ml 03/12/21 mg-100 mg/5 mL oral liquid (Robitussin Cough-Chest Congestion DM) nicotine (polacrilex) 2 mg gum 2 mg BUCCAL Q2H PRN #60 ea 03/12/21 Allergies Allergy/AdvReac Type Severity Reaction Status Date / Time adhesive tape Allergy Unknown RASH Verified 02/26/20 14:39 bacitracin [Bacitracin] Allergy Unknown RASH Verified 02/26/20 14:39 Review of Systems Verdana 4l Review of Systems: Verdana 4d Resolved tachycardia and Verdana 4d tachypnea. Syncope. Lower abdominal pain Verdana 4d Yes all other systems are reviewed and are negative [facility] Past Medical History Medical History Anxiety COPD with asthma Depression Hypothyroidism Non-Hodgkin lymphoma in remission Surgical History H/O: hysterectomy History of salpingo-oophorectomy S/P angiogram of extremity (02/13/20) Family History Family History Father CAD (coronary artery disease) Social History Social History Household Members: None Housing: House Do you presently have visiting nurse or other home services: No Patient Tobacco Use Status: Current everyday Tobacco user Tobacco use type: Cigarette Cigarette Packs Per Day: 1 Cigarettes Per Day: 20.0 Years Smoked: 40 Second Hand Smoke Exposure: No Use of substances other than those prescribed or required for medical reasons: No Advance Directives: Yes Advance Directives on File: Yes Advance Directives Date on File: 03/11/21 service: No Current occupational status: retired Physical Exam Verdana 4l Vital Signs: Verdana 4d Verdana 4d Vital Signs: Verdana 4d Verdana 4Bd Last Vital Signs Verdana 4d Enroller New 4d Enroller New 4d Temp 98 F 03/26/21 18:31 Enroller New 4d Pulse 83 03/26/21 18:31 Enroller New 4d Resp 18 03/26/21 18:31 BP 122/50 L 03/26/21 18:31 Pulse Ox 97 03/26/21 18:31 BMI result Body Mass Index 18.4 Const: General: cooperative, healthy appearing, comfortable, no acute distress, well developed, alert, awake and Physically active Orientation/consciousness: patient oriented x3 HENMT: Head: Yes normal to inspection, Yes No palpable skull fracture present, Yes normocephalic, Yes atraumatic and No abrasion Eyes: General: appearance normal, both eyes and all related structures Neck: Neck: Yes normal visual inspection, Yes full ROM, Yes no lymphadenopathy, Yes no meningeal signs, Yes trachea midline, Yes supple, No anterior neck swelling and No tender Chest: Chest palpation & inspection: normal inspection of the chest and normal palpation of entire chest wall Resp: Effort & Inspection: normal respiratory effort and able to speak in complete sentences Cardio: Jugular venous distension: no JVD Heart sounds: S1 normal heart sound present and S2 normal heart sound present GI: Inspection: Yes normal to inspection and No abdominal wall ecchymosis Palpation (GI): Soft to palpation, not firm, Tenderness to palpation present (GI) in the LLQ and no guarding : General: No CVA tenderness and Yes no CVA tenderness Back/Spine/Pelvis: Back: no CVA tenderness, No CVA tenderness and No back tenderness Skin: General skin exam: no rashes or lesions noted and elasticity normal Neuro: General: patient oriented x3, gait normal, no meningeal signs and CN's II-XI intact bilaterally Cranial nerves: Yes CN's II-XII intact bilaterally Extrem: General: Yes normal to inspection and Yes full ROM Psych: Appearance: grossly normal, well kempt and not disheveled Course Course Course Narrative: Patient vital signs are stable. O2 saturation 100%. Will do labs, EKG, and troponin. Also patient will have imaging of abdomen. Patient presently not present as PE but due to patient having COVID recently syncopized Zing this past Tuesday and movement of tachypnea tachycardia at PCP office was sent for chest CT scan also Reevaluation(s) Reevaluation #1: Patient chest CTA came back negative for PE. Labs came back normal with 2 troponin negative. Negative orthostatics. UA negative for UTI. CT scan shows mild colitis. Due to patient's age, syncopal episode, patient should be admitted for observation. Patient has mild colitis could be treated during a dmission. Presently negative for NE. EKG negative STEMI. No PE. Head CT cervical spine came back normal. Patient has so for vital sign has been stable. Hospice agreeable to admit patient. On ambulation O2 saturation 98% Time: 18:51 Medical Decision Making MDM Narrative Medical decision making narrative: Syncope, COVID, colitis Lab Data Result diagrams: 03/26/21 12:05 03/26/21 12:05 Labs: Lab Results 03/26/21 03/26/21 03/26/21 Range/Units 12:01 12:05 12:05 WBC 5.1 (4.8-10.8) X10*3/uL RBC 2.60 L (4.20-5.50) X10*6/uL Hgb 9.5 L (12.0-16.0) g/dl Hct 28.7 L (37.0-47.0) % MCV 110.4 H (80.0-98.0) fL MCH 36.5 H (27.0-33.0) pg MCHC 33.1 (31.0-35.0) g/dl RDW 16.8 H (11.0-16.0) % Plt Count 226 (160-400) X10*3/uL MPV 13.2 H (9.4-12.3) fL Immature Gran % (Auto) Cancelled Neut % (Auto) Cancelled Lymph % (Auto) Cancelled [place] % (Auto) Cancelled Eos % (Auto) Cancelled Baso % (Auto) Cancelled Lymph # (Auto) Cancelled [place] # (Auto) Cancelled Eos # (Auto) Cancelled Baso # (Auto) Cancelled Abs Immat Gran (auto) Cancelled Absolute Neuts (auto) Cancelled Absolute Nucleated RBC 0.000 (0.0-0.012) X10*3/uL Nucleated RBC % (auto) 0.0 (0.0-0.2) /100WBC Neutrophils % (Manual) 38 L (45-73) % Band Neutrophils % 2 L (3-5) % Lymphocytes % (Manual) 43 H (20-40) % Atypical Lymphs % 6 (0-6) % (Man) Monocytes % (Manual) 3 (2-11) % Eosinophils % (Manual) 1 (0-4) % Basophils % (Manual) 7 H (0-2) % Abs Neuts (Manual) 2.0 (2.0-8.3) X10*3/uL Lymphocytes # (Manual) 2.2 (1.2-4.9) X10*3/uL Atyp Lymphs # (Manual) 0.3 x10*3/uL Monocytes # (Manual) 0.2 (0.1-1.2) X10*3/uL Eosinophils # (Manual) 0.1 (0.0-0.4) X10*3/uL Basophils # (Manual) 0.4 H (0.0-0.2) X10*3/uL Platelet Estimate NORMAL (NORMAL) Plt Morphology Comment NORMAL RBC Morphology NOTED Hypochromasia 1+ (5-14) /OIF Microcytosis 1+ (5-14) /OIF Macrocytosis 2+ (15-30) /OIF Ovalocytes 1+ (5-14) /OIF Acanthocytes (Spur) 1+ (0-2) /OIF Schistocytes 1+ (0-2) /OIF PT (9.9-13.0) SEC INR (0.9-1.1) APTT (24.1-38.0) SEC Sodium 139 (135-145) mmol/L Potassium 3.4 (3.3-5.1) mmol/L Chloride 105 (96-108) mmol/L Carbon Dioxide 28 (22-29) mmol/L Anion Gap 9 L (12-20) BUN 10 D (9-16) mg/dL Creatinine 1.00 (0.5-1.4) mg/dL Estim Creat Clear Calc 41.0 Estimated GFR 55 Random Glucose 97 (60-115) mg/dL Calcium 8.8 (8.4-10.2) mg/dL Total Bilirubin 0.5 (0.0-1.0) mg/dL AST 11 (5-31) U/L ALT 8 (0-31) U/L Alkaline Phosphatase 78 (39-117) U/L Troponin I High Sens (<3.5-17.0) ng/L Total Protein 5.2 L (6.5-8.0) g/dL Albumin 3.3 L (3.5-5.0) g/dL Urine Color STRAW Urine Appearance CLEAR Urine pH 7.0 (5.0-8.0) Ur Specific [place] <= 1.005 (1.005-1.025) Urine Protein NEG (NEG-TRACE) MG/DL Urine Glucose (UA) NEG (NEG) MG/DL Urine Ketones NEG (NEG) MG/DL Urine Blood TRACE (NEG) Urine Nitrite NEG (NEG) Ur Leukocyte Esterase NEG (NEG) Urine RBC 0 (0) /HPF Urine WBC 0 (0-4) /HPF Ur Squamous Epith TRACE /LPF Cells Urine Bacteria TRACE /LPF COVID-19 (KEISHA) (Negative) COVID-19 Clin Com 03/26/21 03/26/21 03/26/21 Range/Units 12:06 13:02 16:35 WBC (4.8-10.8) X10*3/uL RBC (4.20-5.50) X10*6/uL Hgb (12.0-16.0) g/dl Hct (37.0-47.0) % MCV (80.0-98.0) fL MCH (27.0-33.0) pg MCHC (31.0-35.0) g/dl RDW (11.0-16.0) % Plt Count (160-400) X10*3/uL MPV (9.4-12.3) fL Immature Gran % (Auto) Neut % (Auto) Lymph % (Auto) [place] % (Auto) Eos % (Auto) Baso % (Auto) Lymph # (Auto) [place] # (Auto) Eos # (Auto) Baso # (Auto) Abs Immat Gran (auto) Absolute Neuts (auto) Absolute Nucleated RBC (0.0-0.012) X10*3/uL Nucleated RBC % (auto) (0.0-0.2) /100WBC Neutrophils % (Manual) (45-73) % Band Neutrophils % (3-5) % Lymphocytes % (Manual) (20-40) % Atypical Lymphs % (Man) (0-6) % Monocytes % (Manual) (2-11) % Eosinophils % (Manual) (0-4) % Basophils % (Manual) (0-2) % Abs Neuts (Manual) (2.0-8.3) X10*3/uL Lymphocytes # (Manual) (1.2-4.9) X10*3/uL Atyp Lymphs # (Manual) x10*3/uL Monocytes # (Manual) (0.1-1.2) X10*3/uL Eosinophils # (Manual) (0.0-0.4) X10*3/uL Basophils # (Manual) (0.0-0.2) X10*3/uL Platelet Estimate (NORMAL) Plt Morphology Comment RBC Morphology Hypochromasia /OIF Microcytosis /OIF Macrocytosis /OIF Ovalocytes /OIF Acanthocytes (Spur) /OIF Schistocytes /OIF PT 12.6 (9.9-13.0) SEC INR 1.1 (0.9-1.1) APTT 30.0 (24.1-38.0) SEC Sodium (135-145) mmol/L Potassium (3.3-5.1) mmol/L Chloride (96-108) mmol/L Carbon Dioxide (22-29) mmol/L Anion Gap (12-20) BUN (9-16) mg/dL Creatinine (0.5-1.4) mg/dL Estim Creat Clear Calc Estimated GFR Random Glucose (60-115) mg/dL Calcium (8.4-10.2) mg/dL Total Bilirubin (0.0-1.0) mg/dL AST (5-31) U/L ALT (0-31) U/L Alkaline Phosphatase (39-117) U/L Troponin I High Sens < 3.5 (<3.5-17.0) ng/L Total Protein (6.5-8.0) g/dL Albumin (3.5-5.0) g/dL Urine Color Urine Appearance Urine pH (5.0-8.0) Ur Specific [place] (1.005-1.025) Urine Protein (NEG-TRACE) MG/DL Urine Glucose (UA) (NEG) MG/DL Urine Ketones (NEG) MG/DL Urine Blood (NEG) Urine Nitrite (NEG) Ur Leukocyte Esterase (NEG) Urine RBC (0) /HPF Urine WBC (0-4) /HPF Ur Squamous Epith Cells /LPF Urine Bacteria /LPF COVID-19 (KEISHA) Positive A (Negative) COVID-19 Clin Com See Note 03/26/21 Range/Units 16:35 WBC (4.8-10.8) X10*3/uL RBC (4.20-5.50) X10*6/uL Hgb (12.0-16.0) g/dl Hct (37.0-47.0) % MCV (80.0-98.0) fL MCH (27.0-33.0) pg MCHC (31.0-35.0) g/dl RDW (11.0-16.0) % Plt Count (160-400) X10*3/uL MPV (9.4-12.3) fL Immature Gran % (Auto) Neut % (Auto) Lymph % (Auto) [place] % (Auto) Eos % (Auto) Baso % (Auto) Lymph # (Auto) [place] # (Auto) Eos # (Auto) Baso # (Auto) Abs Immat Gran (auto) Absolute Neuts (auto) Absolute Nucleated RBC (0.0-0.012) X10*3/uL Nucleated RBC % (auto) (0.0-0.2) /100WBC Neutrophils % (Manual) (45-73) % Band Neutrophils % (3-5) % Lymphocytes % (Manual) (20-40) % Atypical Lymphs % (Man) (0-6) % Monocytes % (Manual) (2-11) % Eosinophils % (Manual) (0-4) % Basophils % (Manual) (0-2) % Abs Neuts (Manual) (2.0-8.3) X10*3/uL Lymphocytes # (Manual) (1.2-4.9) X10*3/uL Atyp Lymphs # (Manual) x10*3/uL Monocytes # (Manual) (0.1-1.2) X10*3/uL Eosinophils # (Manual) (0.0-0.4) X10*3/uL Basophils # (Manual) (0.0-0.2) X10*3/uL Platelet Estimate (NORMAL) Plt Morphology Comment RBC Morphology Hypochromasia /OIF Microcytosis /OIF Macrocytosis /OIF Ovalocytes /OIF Acanthocytes (Spur) /OIF Schistocytes /OIF PT (9.9-13.0) SEC INR (0.9-1.1) APTT (24.1-38.0) SEC Sodium (135-145) mmol/L Potassium (3.3-5.1) mmol/L Chloride (96-108) mmol/L Carbon Dioxide (22-29) mmol/L Anion Gap (12-20) BUN (9-16) mg/dL Creatinine (0.5-1.4) mg/dL Estim Creat Clear Calc Estimated GFR Random Glucose (60-115) mg/dL Calcium (8.4-10.2) mg/dL Total Bilirubin (0.0-1.0) mg/dL AST (5-31) U/L ALT (0-31) U/L Alkaline Phosphatase (39-117) U/L Troponin I High Sens 4.1 (<3.5-17.0) ng/L Total Protein (6.5-8.0) g/dL Albumin (3.5-5.0) g/dL Urine Color Urine Appearance Urine pH (5.0-8.0) Ur Specific [place] (1.005-1.025) Urine Protein (NEG-TRACE) MG/DL Urine Glucose (UA) (NEG) MG/DL Urine Ketones (NEG) MG/DL Urine Blood (NEG) Urine Nitrite (NEG) Ur Leukocyte Esterase (NEG) Urine RBC (0) /HPF Urine WBC (0-4) /HPF Ur Squamous Epith Cells /LPF Urine Bacteria /LPF COVID-19 (KEISHA) (Negative) COVID-19 Clin Com ECG Data Interpretation: Normal sinus rhythm. Ventricular rate is 76. [place] interval 144. QRS 82 peak QTC 447. Negative STEMI Discharge Plan Discharge Clinical Impression: Syncope, COVID-19, Colitis Patient Disposition: Admitted As Inpatient
[2021-03-26 12:33] LABS: Troponin-I High Sensitivity < 3.5 ng/L (<3.5-17.0)
[2021-03-26 12:38] LABS: Alanine Aminotransferase 8 U/L (0-31); Albumin Level 3.3 g/dL (3.5-5.0); Alkaline Phosphatase 78 U/L (39-117); Anion Gap 9 (12-20); Aspartate Amino Transferase 11 U/L (5-31); Bilirubin Total 0.5 mg/dL (0.0-1.0); Blood Urea Nitrogen 10 mg/dL (9-16); Calcium 8.8 mg/dL (8.4-10.2); Carbon Dioxide 28 mmol/L (22-29); Chloride 105 mmol/L (96-108); Estimated Glomerular Filt Rate 55; Glucose Random 97 mg/dL (60-115); Potassium 3.4 mmol/L (3.3-5.1); Sodium 139 mmol/L (135-145); Total Protein 5.2 g/dL (6.5-8.0)
[2021-03-26 12:40] LABS: Atypical Lymph Absolute Manual 0.3 x10*3/uL; Atypical Lymphs Percent Manual 6 % (0-6); Band Neutrophils Percent 2 % (3-5); Basophils Abs Manual 0.4 X10*3/uL (0.0-0.2); Basophils Percent Manual 7 % (0-2); Eosinophils Absolute Manual 0.1 X10*3/uL (0.0-0.4); Eosinophils Percent Manual 1 % (0-4); Lymphocytes Absolute Manual 2.2 X10*3/uL (1.2-4.9); Lymphocytes Percent Manual 43 % (20-40); Monocytes Absolute Manual 0.2 X10*3/uL (0.1-1.2); Monocytes Percent Manual 3 % (2-11); Neutrophils Percent Manual 38 % (45-73)
[2021-03-26 12:42] LABS: Acanthocytes 1+ (0-2) /OIF; Macrocytosis 2+ (15-30) /OIF; Microcytosis 1+ (5-14) /OIF; Ovalocytes 1+ (5-14) /OIF; RBC Morphology NOTED
[2021-03-26 12:43] LABS: Hypochromasia 1+ (5-14) /OIF; Platelet Estimate NORMAL (NORMAL); Platelet Morphology Comment NORMAL; Schistocytes 1+ (0-2) /OIF
[2021-03-26 12:46] LABS: Bacteria Urine TRACE /LPF; RBC Urine 0 /HPF (0); Squamous Epithelial Cell Urine TRACE /LPF; WBC Urine 0 /HPF (0-4)
[2021-03-26 13:19] LABS: INTERNATIONAL NORM RATIO 1.1 (0.9-1.1); Prothrombin Time 12.6 SEC (9.9-13.0)
[2021-03-26] MEDS: iohexoL 350 MG/ML 100 ML INFUS..BTL IV (13:48)
[2021-03-26 16:50] LABS: COVID-19 Test Positive (Negative); IDNOW Serial# 55D5AD1C
[2021-03-26 17:05] LABS: Troponin-I High Sensitivity 4.1 ng/L (<3.5-17.0)
--- NOTE | 2021-03-26 18:40 | P.HPHOSP_ITS ---
History of Present Illness Date of Service: 03/26/21 Chief Complaint: tachypnea and tachycardia 71F presented from pcp office with tachycardia and tachypnea. patient [place] [facility] [place] after 3 day hospitalization for COVID pneumonia. she is overall feeling better, still has dry cough and some sob on exertion. about 5 days ptp patient had syncopal episode while sitting watching TV. she does not remember event fully, her friend woke her up after brief LOC without trauma. patient states she has had 4 syncopal episodes over past couple of years. she went to her pcps office on day of presentation. she reports climbing up 3 fligths of stairs, then was winded and noted to be tachypneic to 30s and tachycardic to 120s so advised to go to ED. in ED CTA negative for PE, question of mild colitis on CT abd, though patient denies abdominal pain, diarrhea, denies chest pain. covid swab still positive. Review of Systems Verdana 4l Review of Systems: Verdana 4d Verdana 4d Constitutional: Denies fever, denies Chills Eyes: denies blurry vision ENT: denies sore throat CVS: denies chest pain Respiratory: exertional dyspnea GI: no abdominal pain : denies dysuria MSK: denies neck pain Skin: denies rash Neuro: deniesdenies specific motor weakness Psych: denies suicidal ideation Endocrine: denies heat/cold intolerance Hematologic: denies easy bleeding Allergy: denies hives [facility] Medical History Anxiety COPD with asthma Depression Hypothyroidism Non-Hodgkin lymphoma in remission Family History Father CAD (coronary artery disease) Surgical History H/O: hysterectomy History of salpingo-oophorectomy S/P angiogram of extremity (02/13/20) Social History Household Members: None Housing: House Do you presently have visiting nurse or other home services: No Patient Tobacco Use Status: Current everyday Tobacco user Tobacco use type: Cigarette Cigarette Packs Per Day: 1 Cigarettes Per Day: 20.0 Years Smoked: 40 Second Hand Smoke Exposure: No Use of substances other than those prescribed or required for medical reasons: No Advance Directives: Yes Advance Directives on File: Yes Advance Directives Date on File: 03/11/21 service: No Current occupational status: retired Meds Allergies Allergy/AdvReac Type Severity Reaction Status Date / Time adhesive tape Allergy Unknown RASH Verified 02/26/20 14:39 bacitracin [Bacitracin] Allergy Unknown RASH Verified 02/26/20 14:39 Active Medications: Current Medications Pharmacy Consult (Consult Rx Perform Med Rec) 1 each MISCELLANE ONCE PRN PRN Reason: Consult order Home Medications Medication Instructions Recorded Confirmed Last Taken Type acyclovir 400 mg 400 mg PO BID 01/31/20 03/10/21 03/09/21 History tablet albuterol sulfate 1 puff PO Q4H 01/31/20 03/10/21 03/09/21 History 90 mcg/actuation PRN aerosol inhaler levothyroxine 125 125 mcg PO 01/31/20 03/10/21 03/09/21 History mcg tablet DAILY@0600 paroxetine HCl 20 20 mg PO DAILY 01/31/20 03/10/21 03/09/21 History mg tablet trazodone 100 mg 100 mg PO 01/31/20 03/10/21 03/09/21 History tablet BEDTIME aspirin 81 mg 81 mg PO DAILY 03/10/21 03/10/21 03/09/21 History chewable tablet diphenhydramine 25 mg PO DAILY 03/10/21 03/10/21 Unknown History HCl 25 mg tablet PRN Physical Exam Verdana 4l Vital Signs and Narrative: Verdana 4d Verdana 4d Vital Signs: Verdana 4d Verdana 4Bd Last Vital Signs Verdana 4d Coordinate Measuring Machine Operator New 4d Coordinate Measuring Machine Operator New 4d Temp 98 F 03/26/21 18:31 Coordinate Measuring Machine Operator New 4d Pulse 83 03/26/21 18:31 Coordinate Measuring Machine Operator New 4d Resp 18 03/26/21 18:31 BP 122/50 L 03/26/21 18:31 Pulse Ox 97 03/26/21 18:31 BMI result Body Mass Index 18.4 General: no acute distress, frail, hard of hearing HEENT: atraumatic Neck: normal to visual inspection CVS: S1, S2, RRR Resp: diminished Chest: non tender GI: soft, non tender, non distended : no CVA tenderness Skin: no rashes Extremities: no edema Neuro: Oriented X3, grossly intact Psych: cooperative Results Labs CBC and Chem 7: 03/26/21 12:05 03/26/21 12:05 Labs: Laboratory Results - last 24 hr 03/26/21 03/26/21 03/26/21 12:01 12:05 12:05 MCV 110.4 H MCH 36.5 H MCHC 33.1 RDW 16.8 H Plt Count 226 MPV 13.2 H Immature Gran % (Auto) Cancelled Neut % (Auto) Cancelled Lymph % (Auto) Cancelled [place] % (Auto) Cancelled Eos % (Auto) Cancelled Baso % (Auto) Cancelled Lymph # (Auto) Cancelled [place] # (Auto) Cancelled Eos # (Auto) Cancelled Baso # (Auto) Cancelled Abs Immat Gran (auto) Cancelled Absolute Neuts (auto) Cancelled Absolute Nucleated RBC 0.000 Nucleated RBC % (auto) 0.0 Neutrophils % (Manual) 38 L Band Neutrophils % 2 L Lymphocytes % (Manual) 43 H Atypical Lymphs % (Man) 6 Monocytes % (Manual) 3 Eosinophils % (Manual) 1 Basophils % (Manual) 7 H Abs Neuts (Manual) 2.0 Lymphocytes # (Manual) 2.2 Atyp Lymphs # (Manual) 0.3 Monocytes # (Manual) 0.2 Eosinophils # (Manual) 0.1 Basophils # (Manual) 0.4 H Platelet Estimate NORMAL Plt Morphology Comment NORMAL RBC Morphology NOTED Hypochromasia 1+ (5-14) Microcytosis 1+ (5-14) Macrocytosis 2+ (15-30) Ovalocytes 1+ (5-14) Acanthocytes (Spur) 1+ (0-2) Schistocytes 1+ (0-2) PT INR APTT Anion Gap 9 L Estim Creat Clear Calc 41.0 Estimated GFR 55 Random Glucose 97 Calcium 8.8 Total Bilirubin 0.5 AST 11 ALT 8 Alkaline Phosphatase 78 Total Protein 5.2 L Albumin 3.3 L Urine Color STRAW Urine Appearance CLEAR Urine pH 7.0 Ur Specific [place] <= 1.005 Urine Protein NEG Urine Glucose (UA) NEG Urine Ketones NEG Urine Blood TRACE Urine Nitrite NEG Ur Leukocyte Esterase NEG Urine RBC 0 Urine WBC 0 Ur Squamous Epith Cells TRACE Urine Bacteria TRACE COVID-19 (KEISHA) COVID-19 Clin Com 03/26/21 03/26/21 13:02 16:35 MCV MCH MCHC RDW Plt Count MPV Immature Gran % (Auto) Neut % (Auto) Lymph % (Auto) [place] % (Auto) Eos % (Auto) Baso % (Auto) Lymph # (Auto) [place] # (Auto) Eos # (Auto) Baso # (Auto) Abs Immat Gran (auto) Absolute Neuts (auto) Absolute Nucleated RBC Nucleated RBC % (auto) Neutrophils % (Manual) Band Neutrophils % Lymphocytes % (Manual) Atypical Lymphs % (Man) Monocytes % (Manual) Eosinophils % (Manual) Basophils % (Manual) Abs Neuts (Manual) Lymphocytes # (Manual) Atyp Lymphs # (Manual) Monocytes # (Manual) Eosinophils # (Manual) Basophils # (Manual) Platelet Estimate Plt Morphology Comment RBC Morphology Hypochromasia Microcytosis Macrocytosis Ovalocytes Acanthocytes (Spur) Schistocytes PT 12.6 INR 1.1 APTT 30.0 Anion Gap Estim Creat Clear Calc Estimated GFR Random Glucose Calcium Total Bilirubin AST ALT Alkaline Phosphatase Total Protein Albumin Urine Color Urine Appearance Urine pH Ur Specific [place] Urine Protein Urine Glucose (UA) Urine Ketones Urine Blood Urine Nitrite Ur Leukocyte Esterase Urine RBC Urine WBC Ur Squamous Epith Cells Urine Bacteria COVID-19 (KEISHA) Positive A COVID-19 Clin Com See Note Imaging Radiologist's Impressions: Impressions Abdomen/Pelvis CT 03/26/21 14:02 IMPRESSION: 1. No evidence for acute or chronic pulmonary embolism. 2. Nonspecific mild colitis distal colon. 3. Changes of Covid 19 or atypical infection. VTE: Negative Chest CTA 03/26/21 14:02 IMPRESSION: 1. No evidence for acute or chronic pulmonary embolism. 2. Nonspecific mild colitis distal colon. 3. Changes of Covid 19 or atypical infection. VTE: Negative Cervical Spine CT 03/26/21 15:52 IMPRESSION: 1. No evidence of acute intracranial hemorrhage or edematous territorial infarction. Moderate underlying migraine angiopathy and generalized cerebral volume loss. 2. Instrumented anterior fusion of C6-C7. No evidence of acute fracture or traumatic subluxation of the cervical spine. Moderate multilevel degenerative spinal arthropathy of the cervical spine. Head CT 03/26/21 15:52 IMPRESSION: 1. No evidence of acute intracranial hemorrhage or edematous territorial infarction. Moderate underlying migraine angiopathy and generalized cerebral volume loss. 2. Instrumented anterior fusion of C6-C7. No evidence of acute fracture or traumatic subluxation of the cervical spine. Moderate multilevel degenerative spinal arthropathy of the cervical spine. Assessment and Plan (1) COVID-19: Status: Acute Plan 71F presented with tachypnea, tachycardia, syncopal episode syncopal episode likely orthostatic/hypovolemic will gently hydrate monitor on tele tachypnea and tachycardia deconditioning due to recent covid mild colitis on CT does not appear to be clinically significant, monitor recent covid still testing positive and question of immunocompromise due to age/frailty and lymphoma in remission, will keep on isolation hypothyroid synthroid DNR/DNI Quality Stroke Does the patient have a stroke diagnosis?: No VTE Prior VTE?: No VTE Risk Level:: Medical - moderate - high VTE Device Contraindication: Treatment Not Indicated VTE Drug Contraindication: N/A - Med Ordered
--- NOTE | 2021-03-26 19:02 | PHA.MEDREC ---
Pharmacy Consult ? Medication Reconciliation Pharmacy has completed the medication reconciliation.
[2021-03-26] MEDS: Enoxaparin Sodium 30 MG/0.3 ML SYRINGE SUBCUT (19:43)
[2021-03-26] MEDS: 0.9 % Sodium Chloride 1,000 ML 75 ML IVCONT (19:48)
[2021-03-26] MEDS: Acyclovir 200 MG CAPSULE 400 MG PO (21:25)
[2021-03-26] MEDS: traZODone HCL 100 MG TABLET PO (21:25)
--- NOTE | 2021-03-26 23:30 | PC.NURSE ---
this RN assisted pt to bathroom. pt denies any dizziness or lightheadedness while ambulating. pt back in bed at this time on programmer. warm blanket given. call acosta in reach.
[2021-03-27 01:03] VITALS: BP 100/52; PULSE 70; RESP 18; TEMP 36.1; O2SAT 97
--- NOTE | 2021-03-27 01:28 | PC.NURSE ---
Patient transferred from ed to overflow ed at 0045, patient alert and oriented x3, denies any pain or discomfort at this time. L/s clear, dry cough noted, patient on room air, vitals stable. Assisted patient to bedside commode. Call acosta within reach.
[2021-03-27] MEDS: Levothyroxine Sodium 125 MCG TABLET PO (06:51)
[2021-03-27 06:54] LABS: Mean Corpuscular HGB Conc 33.3 g/dl (31.0-35.0)
[2021-03-27 06:56] LABS: Hematocrit 25.8 % (37.0-47.0); Hemoglobin 8.6 g/dl (12.0-16.0); Mean Corpuscular Hemoglobin 36.8 pg (27.0-33.0); PLT CLUMP 1; Red Blood Count 2.34 X10*6/uL (4.20-5.50); Red Cell Distribution Width 16.6 % (11.0-16.0)
[2021-03-27 07:01] LABS: Mean Corpuscular Volume 110.3 fL (80.0-98.0); PLT ABN DIST 1
[2021-03-27 07:14] LABS: Platelet Count 186 X10*3/uL (160-400); White Blood Count 4.4 X10*3/uL (4.8-10.8)
[2021-03-27 07:30] VITALS: BP 94/51; PULSE 76; RESP 13; TEMP 36.3; O2SAT 97
[2021-03-27] MEDS: PARoxetine HCL 20 MG TABLET PO (07:46)
[2021-03-27] MEDS: Acyclovir 200 MG CAPSULE 400 MG PO (07:46)
[2021-03-27] MEDS: Aspirin 81 MG TAB.CHEW PO (07:46)
[2021-03-27] MEDS: 0.9 % Sodium Chloride Flush 3 ML SYRINGE IVFLUSH (07:47)
--- NOTE | 2021-03-27 07:50 | PC.NURSE ---
pt alert and oriented, skin pwd, respirations even and unlabored, ls clear, pt denies any pain at this time, ns on the monitor, vs stable pt set up with her breakfast sania
[2021-03-27 07:54] VITALS: BP 97/48; PULSE 69
[2021-03-27] MEDS: 0.9 % Sodium Chloride 1,000 ML 75 ML IVCONT (07:56)
[2021-03-27 08:32] LABS: Anion Gap 11 (12-20); Blood Urea Nitrogen 9 mg/dL (9-16); Calcium 7.9 mg/dL (8.4-10.2); Carbon Dioxide 23 mmol/L (22-29); Chloride 111 mmol/L (96-108); Creatinine Clr Calc Pharmacy 46.6; Estimated Glomerular Filt Rate > 60; Glucose Fasting 86 mg/dL (60-99); Potassium 3.7 mmol/L (3.3-5.1); Sodium 141 mmol/L (135-145)
--- NOTE | 2021-03-27 09:33 | P.DS_ITS ---
DS: Providers Provider Date of Service: 03/27/21 Date of admission: 03/26/21 18:38 Primary care physician: Burt Juarez MD DS: Diagnosis Discharge Diagnosis (1) COVID-19: Status: Acute DS: Summary Hospital Course Hospital Course: patient was observed, given iv hydration, no events on telemetry, reports feeling better than she has felt in weeks. will be discharged home, should follow up [facility] pcp. Time Spent with Patient Time attestation: Total time spent providing and/or coordinating discharge services: Discharge coordination time: Greater than 30 minutes Quality: Stroke Does the patient have a stroke diagnosis?: No Physical Exam Verdana 4l Vital Signs: Verdana 4d Verdana 4d Vital Signs: Verdana 4d Verdana 4Bd Last Vital Signs Verdana 4d Clay Machine Operator New 4d Clay Machine Operator New 4d Temp 97.3 F 03/27/21 07:30 Clay Machine Operator New 4d Pulse 69 03/27/21 07:54 Clay Machine Operator New 4d Resp 13 03/27/21 07:30 BP 97/48 L 03/27/21 07:54 Pulse Ox 97 03/27/21 07:30 BMI result Body Mass Index 18.4 General: AO X 3, no acute distress Resp: CTA bilateral, no accessory muscles used CVS: S1,S2,RRR GI: soft, non tender, non distended Neuro: motor grossly intact, alert Psych: appropriate affect, appropriate insight DS: Data Data Completed and Pending Completed studies during hospitalization [Text1]: Procedures Introduction of Remdesivir Anti-infective into Peripheral Vein, Percutaneous Approach, [employer] 5 (03/10/21) Labs on day of discharge: Laboratory Results - last 24 hr 03/26/21 03/26/21 03/26/21 12:01 12:05 12:05 WBC 5.1 RBC 2.60 L Hgb 9.5 L Hct 28.7 L MCV 110.4 H MCH 36.5 H MCHC 33.1 RDW 16.8 H Plt Count 226 MPV 13.2 H Immature Gran % (Auto) Cancelled Neut % (Auto) Cancelled Lymph % (Auto) Cancelled [place] % (Auto) Cancelled Eos % (Auto) Cancelled Baso % (Auto) Cancelled Lymph # (Auto) Cancelled [place] # (Auto) Cancelled Eos # (Auto) Cancelled Baso # (Auto) Cancelled Abs Immat Gran (auto) Cancelled Absolute Neuts (auto) Cancelled Absolute Nucleated RBC 0.000 Nucleated RBC % (auto) 0.0 Neutrophils % (Manual) 38 L Band Neutrophils % 2 L Lymphocytes % (Manual) 43 H Atypical Lymphs % (Man) 6 Monocytes % (Manual) 3 Eosinophils % (Manual) 1 Basophils % (Manual) 7 H Abs Neuts (Manual) 2.0 Lymphocytes # (Manual) 2.2 Atyp Lymphs # (Manual) 0.3 Monocytes # (Manual) 0.2 Eosinophils # (Manual) 0.1 Basophils # (Manual) 0.4 H Platelet Estimate NORMAL Plt Morphology Comment NORMAL RBC Morphology NOTED Hypochromasia 1+ (5-14) Microcytosis 1+ (5-14) Macrocytosis 2+ (15-30) Ovalocytes 1+ (5-14) Acanthocytes (Spur) 1+ (0-2) Schistocytes 1+ (0-2) PT INR APTT Sodium 139 Potassium 3.4 Chloride 105 Carbon Dioxide 28 Anion Gap 9 L BUN 10 D Creatinine 1.00 Estim Creat Clear Calc 41.0 Estimated GFR 55 Random Glucose 97 Fasting Glucose Calcium 8.8 Magnesium Total Bilirubin 0.5 AST 11 ALT 8 Alkaline Phosphatase 78 Troponin I High Sens Total Protein 5.2 L Albumin 3.3 L Urine Color STRAW Urine Appearance CLEAR Urine pH 7.0 Ur Specific [place] <= 1.005 Urine Protein NEG Urine Glucose (UA) NEG Urine Ketones NEG Urine Blood TRACE Urine Nitrite NEG Ur Leukocyte Esterase NEG Urine RBC 0 Urine WBC 0 Ur Squamous Epith Cells TRACE Urine Bacteria TRACE COVID-19 (KEISHA) COVID-19 Clin Com 03/26/21 03/26/21 03/26/21 12:06 13:02 16:35 WBC RBC Hgb Hct MCV MCH MCHC RDW Plt Count MPV Immature Gran % (Auto) Neut % (Auto) Lymph % (Auto) [place] % (Auto) Eos % (Auto) Baso % (Auto) Lymph # (Auto) [place] # (Auto) Eos # (Auto) Baso # (Auto) Abs Immat Gran (auto) Absolute Neuts (auto) Absolute Nucleated RBC Nucleated RBC % (auto) Neutrophils % (Manual) Band Neutrophils % Lymphocytes % (Manual) Atypical Lymphs % (Man) Monocytes % (Manual) Eosinophils % (Manual) Basophils % (Manual) Abs Neuts (Manual) Lymphocytes # (Manual) Atyp Lymphs # (Manual) Monocytes # (Manual) Eosinophils # (Manual) Basophils # (Manual) Platelet Estimate Plt Morphology Comment RBC Morphology Hypochromasia Microcytosis Macrocytosis Ovalocytes Acanthocytes (Spur) Schistocytes PT 12.6 INR 1.1 APTT 30.0 Sodium Potassium Chloride Carbon Dioxide Anion Gap BUN Creatinine Estim Creat Clear Calc Estimated GFR Random Glucose Fasting Glucose Calcium Magnesium Total Bilirubin AST ALT Alkaline Phosphatase Troponin I High Sens < 3.5 Total Protein Albumin Urine Color Urine Appearance Urine pH Ur Specific [place] Urine Protein Urine Glucose (UA) Urine Ketones Urine Blood Urine Nitrite Ur Leukocyte Esterase Urine RBC Urine WBC Ur Squamous Epith Cells Urine Bacteria COVID-19 (KESIHA) Positive A COVID-19 Clin Com See Note 03/26/21 03/27/21 03/27/21 16:35 06:22 06:22 WBC 4.4 L RBC 2.34 L Hgb 8.6 L Hct 25.8 L MCV 110.3 H MCH 36.8 H MCHC 33.3 RDW 16.6 H Plt Count 186 MPV Not Reportable Immature Gran % (Auto) Neut % (Auto) Lymph % (Auto) [place] % (Auto) Eos % (Auto) Baso % (Auto) Lymph # (Auto) [place] # (Auto) Eos # (Auto) Baso # (Auto) Abs Immat Gran (auto) Absolute Neuts (auto) Absolute Nucleated RBC 0.000 Nucleated RBC % (auto) 0.0 Neutrophils % (Manual) Band Neutrophils % Lymphocytes % (Manual) Atypical Lymphs % (Man) Monocytes % (Manual) Eosinophils % (Manual) Basophils % (Manual) Abs Neuts (Manual) Lymphocytes # (Manual) Atyp Lymphs # (Manual) Monocytes # (Manual) Eosinophils # (Manual) Basophils # (Manual) Platelet Estimate Plt Morphology Comment RBC Morphology Hypochromasia Microcytosis Macrocytosis Ovalocytes Acanthocytes (Spur) Schistocytes PT INR APTT Sodium 141 Potassium 3.7 Chloride 111 H Carbon Dioxide 23 Anion Gap 11 L BUN 9 Creatinine 0.88 Estim Creat Clear Calc 46.6 Estimated GFR > 60 Random Glucose Fasting Glucose 86 Calcium 7.9 L D Magnesium 2.0 Total Bilirubin AST ALT Alkaline Phosphatase Troponin I High Sens 4.1 Total Protein Albumin Urine Color Urine Appearance Urine pH Ur Specific [place] Urine Protein Urine Glucose (UA) Urine Ketones Urine Blood Urine Nitrite Ur Leukocyte Esterase Urine RBC Urine WBC Ur Squamous Epith Cells Urine Bacteria COVID-19 (KEISHA) COVID-19 Clin Com Discharge Plan Discharge Patient Disposition: Home, Self-Care Discharge Diagnosis: dehydration Referrals: Burt Juarez MD [Primary Care Provider] - 1 Week Discharge Medications: Continued diphenhydramine HCl 25 mg Tablet 25 mg PO DAILY PRN (Reason: Allergy Symptoms) 0RF aspirin 81 mg Tablet,Chewable 81 mg PO DAILY 0RF nicotine (polacrilex) 2 mg Gum 2 mg buccal Q2H PRN (Reason: nicotine cravings) Qty: 60 0RF trazodone 100 mg tablet 100 mg PO BEDTIME 0RF acyclovir 400 mg tablet 400 mg PO BID 0RF albuterol sulfate 90 mcg/actuation HFA aerosol inhaler 1 puff PO Q4H PRN (Reason: Shortness Of Breath) 0RF levothyroxine 125 mcg tablet 125 mcg PO DAILY@0600 0RF paroxetine HCl 20 mg tablet 20 mg PO DAILY 0RF Discharge Orders: Discharge Order (Routine); Ordered 03/27/21 Ordered By: Daren hKalil Diet: advance to usual diet Activity on Discharge: As tolerated Stand Alone Forms: Patient Portal Discharge page Care Plan Goals: recovery, avoid syncope Health Concerns: recent covid, recurrent syncope Plan of Treatment: follow up with pcp Assessment: see above
--- NOTE | 2021-03-27 09:45 | MHC.CM.PN ---
CM spoke with Patient over the phone at [phone] and addressed GAMBINO with her (Copy placed on chart). Patient lives alone in an apartment and has a cane but does not use it. Patient's goal is home today, no services and CM has initiated and will follow for dc planning. PCP is Dr.Robert Juarez and Patient has received Moderna vax X3.
[2021-03-27] MEDS: Heparin Sodium,Porcine Flush 50 UNITS/5 ML SYRINGE IVFLUSH (10:43)
== END 2021-03-27 10:56 | disposition home or self-care (01) ==
LOC: HO.ED 18:54 → HO.EDOVER 18:55
PROVIDERS: Physician Assistant; Admitting Provider Internal Medicine; Emergency Provider Emergency Medicine Emergency Medical Services; PCP Internal Medicine Medical Oncology; Visit Provider Internal Medicine
DX: U07.1 COVID-19 (principal); R55 Syncope and collapse; R53.1 Weakness; R06.82 Tachypnea, not elsewhere classified; R00.0 Tachycardia, unspecified; E11.9 Type 2 diabetes mellitus without complications; E03.9 Hypothyroidism, unspecified; J44.9 Chronic obstructive pulmonary disease, unspecified; C85.90 Non-Hodgkin lymphoma, unspecified, unspecified site; M47.812 Spondylosis without myelopathy or radiculopathy, cervical region; F17.210 Nicotine dependence, cigarettes, uncomplicated; F41.8 Other specified anxiety disorders; Z20.822 Contact with and (suspected) exposure to COVID-19; Z98.1 Arthrodesis status; Z88.1 Allergy status to other antibiotic agents; Z88.9 Allergy status to unspecified drugs, medicaments and biological substances; Z79.899 Other long term (current) drug therapy; Z66 Do not resuscitate
CPT/HCPCS: 36415; 70450; 71275; 72125; 74177; 80048; 80053; 81001; 83735; 84484; 85007; 85027; 85610; 85730; 87635; 93005; 96360; 96361; 96372; 99219; 99285; J1642; J1650; Q9967

== ENCOUNTER 2021-04-14 09:00 | Outpatient (REF) | payer MEDICARE, SELFPAY ==
[2021-04-14 09:40] LABS: MANUAL DIFF FLAG NO
[2021-04-14 09:46] LABS: Basophils Absolute Auto 0.1 X10*3/uL (0.0-0.2); Basophils Percent Auto 1.4 % (0-2); Eosinophils Percent Auto 0.8 % (0-4); Hematocrit 30.5 % (37.0-47.0); Hemoglobin 9.7 g/dl (12.0-16.0); Imm Gran Abs Auto 0.02 X10*3/uL (0.00-0.03); Imm Gran Pct Auto 0.6 % (0.0-0.4); Lymphocytes Absolute Auto 1.5 X10*3/uL (1.2-4.9); Lymphocytes Percent Auto 41.7 % (20-40); Mean Corpuscular HGB Conc 31.8 g/dl (31.0-35.0); Mean Corpuscular Hemoglobin 35.7 pg (27.0-33.0); Mean Platelet Volume 12.8 fL (9.4-12.3); Monocytes Absolute Auto 0.4 X10*3/uL (0.1-1.2); Monocytes Percent Auto 10.8 % (2-11); Neutrophils Absolute Auto 1.6 x10*3/uL (2.0-8.3); Neutrophils Percent Auto 44.7 % (45-73); Platelet Count 218 X10*3/uL (160-400); Red Blood Count 2.72 X10*6/uL (4.20-5.50); Red Cell Distribution Width 16.7 % (11.0-16.0); White Blood Count 3.6 X10*3/uL (4.8-10.8)
[2021-04-14 10:01] LABS: Alanine Aminotransferase < 6 U/L (0-31); Albumin Level 3.5 g/dL (3.5-5.0); Alkaline Phosphatase 85 U/L (39-117); Anion Gap 12 (12-20); Aspartate Amino Transferase 8 U/L (5-31); Bilirubin Total 0.5 mg/dL (0.0-1.0); Blood Urea Nitrogen 9 mg/dL (9-16); Calcium 8.6 mg/dL (8.4-10.2); Carbon Dioxide 27 mmol/L (22-29); Chloride 102 mmol/L (96-108); Estimated Glomerular Filt Rate 57; Glucose Random 129 mg/dL (60-115); Lactate Dehydrogenase 169 U/L (122-220); Potassium 3.9 mmol/L (3.3-5.1); Sodium 137 mmol/L (135-145); Total Protein 4.9 g/dL (6.5-8.0)
[2021-04-14 10:33] LABS: Mean Corpuscular Volume 112.1 fL (80.0-98.0)
== END 2021-04-14 09:01 | disposition home or self-care (01) ==
LOC: HO.MDS 09:00
PROVIDERS: Visit Provider Internal Medicine Medical Oncology
DX: D64.9 Anemia, unspecified (principal); U07.1 COVID-19; E03.9 Hypothyroidism, unspecified; C85.10 Unspecified B-cell lymphoma, unspecified site
CPT/HCPCS: 36415; 36430; 80053; 83615; 85025; 86850; 86900; 86901; 86920; P9016

== ENCOUNTER 2021-04-27 08:34 | Outpatient (REF) | payer MEDICARE, SELFPAY ==
--- NOTE | ~2021-04-27 | US_ITS ---
EXAMINATION: US ABDOMEN COMPLETE CLINICAL INFORMATION: B-cell lymphoma, left lower quadrant abdominal pain. COMPARISON: CTA chest, abdomen and pelvis with contrast 03/26/2021. Ultrasound abdomen 05/19/2012 and 04/06/2011. TECHNIQUE: Real-time imaging of the abdominal viscera. FINDINGS: PANCREAS: Normal. ABDOMINAL AORTA: There is evidence of atherosclerotic disease. The aorta is normal in caliber. INFERIOR VENA CAVA: Visualized portions are normal. LIVER: Normal. The liver is normal in size. The liver contour is normal. Parenchymal echogenicity is normal. No focal hepatic lesion. There is no intrahepatic biliary duct dilatation seen. GALLBLADDER: Normal. The gallbladder is physiologically distended without evidence of stones, sludge, polyps, wall thickening or pericholecystic fluid. COMMON BILE DUCT: Normal in caliber measuring 0.4 cm in diameter. RIGHT KIDNEY: There is a 2.5 cm cyst in the midpole. No hydronephrosis or renal calculi. The kidney measures 10.1 cm in maximum dimension. LEFT KIDNEY: Normal. No hydronephrosis. No renal calculi or focal parenchymal lesions. The kidney measures 10.0 cm in maximum dimension. SPLEEN: Normal. The spleen measures 7.4 cm in maximum dimension. FREE FLUID: None. US/US abdomen complete IMPRESSION: Atherosclerotic disease. Small right renal cyst.
--- NOTE | ~2021-04-27 | US_ITS ---
EXAMINATION: US PELVIS CLINICAL INFORMATION: Left lower quadrant pain COMPARISON: Previous CT of the abdomen and pelvis March 2021 TECHNIQUE: Ultrasound of the pelvis is performed using both transabdominal and transvaginal transducers along with Doppler. Transvaginal imaging is performed due to inadequate visualization transabdominally. FINDINGS: The uterus and ovaries have been removed. There is a 2 x 0.9 x 1.6 centimeter hypoechoic lesion in the left adnexa. This likely corresponds to a lymph node when compared with previous CT from March 2021 axial image 63 series 5. The senior technologist reports the patient is tender over this area with palpation. There is no fluid in the pelvis. US/US pelvic and transvaginal IMPRESSION: 2 x 0.9 x 1.6 cm solid hypoechoic lesion in the left pelvis anterior to the iliac vessels. When compared with previous CT scan this probably represents a lymph node.
== END 2021-04-27 08:35 | disposition home or self-care (01) ==
LOC: HO.HMGCX 08:34
PROVIDERS: PCP Internal Medicine Medical Oncology; Visit Provider Internal Medicine Medical Oncology
DX: C85.10 Unspecified B-cell lymphoma, unspecified site (principal); R10.32 Left lower quadrant pain
CPT/HCPCS: 76700; 76830; 76856

== ENCOUNTER 2021-05-15 11:23 | Outpatient (REF) | payer MEDICARE, SELFPAY ==
[2021-05-15 13:21] LABS: Basophils Absolute Auto 0.1 X10*3/uL (0.0-0.2); Basophils Percent Auto 1.7 % (0-2); Eosinophils Percent Auto 0.2 % (0-4); Hematocrit 34.7 % (37.0-47.0); Hemoglobin 11.1 g/dl (12.0-16.0); Imm Gran Abs Auto 0.01 X10*3/uL (0.00-0.03); Imm Gran Pct Auto 0.2 % (0.0-0.4); Lymphocytes Absolute Auto 3.1 X10*3/uL (1.2-4.9); Lymphocytes Percent Auto 64.6 % (20-40); MANUAL DIFF FLAG SCAN; Mean Corpuscular Hemoglobin 34.6 pg (27.0-33.0); Mean Corpuscular Volume 108.1 fL (80.0-98.0); Mean Platelet Volume 12.5 fL (9.4-12.3); Monocytes Absolute Auto 0.5 X10*3/uL (0.1-1.2); Monocytes Percent Auto 10.8 % (2-11); Neutrophils Absolute Auto 1.1 x10*3/uL (2.0-8.3); Neutrophils Percent Auto 22.5 % (45-73); Platelet Count 184 X10*3/uL (160-400); Red Blood Count 3.21 X10*6/uL (4.20-5.50); Red Cell Distribution Width 19.4 % (11.0-16.0); Retic HGB Equivalent 35.5 pg (30.0-35.0); Reticulocyte Percent 1.5 % (0.5-1.8); Reticulocytes Absolute 0.049 X10*6/uL (0.026-0.095); SCAN SMEAR FLAG 1; White Blood Count 4.8 X10*3/uL (4.8-10.8)
[2021-05-15 13:39] LABS: Alanine Aminotransferase 9 U/L (0-31); Albumin Level 3.9 g/dL (3.5-5.0); Alkaline Phosphatase 111 U/L (39-117); Anion Gap 13 (12-20); Aspartate Amino Transferase 11 U/L (5-31); Bilirubin Total 0.9 mg/dL (0.0-1.0); Blood Urea Nitrogen 10 mg/dL (9-16); Calcium 9.1 mg/dL (8.4-10.2); Carbon Dioxide 26 mmol/L (22-29); Chloride 105 mmol/L (96-108); Estimated Glomerular Filt Rate > 60; Glucose Fasting 108 mg/dL (60-99); Potassium 4.2 mmol/L (3.3-5.1); Sodium 140 mmol/L (135-145); Total Protein 5.2 g/dL (6.5-8.0)
[2021-05-15 13:45] LABS: SLIDE REVIEW VERIFIED
[2021-05-15 13:55] LABS: Erythrocyte Sedimentation Rate 4 MM/HR (0-20)
[2021-05-15 14:15] LABS: Estimated Average Glucose 82 mg/dL; Hemoglobin A1c % 4.5 %
[2021-05-15 14:21] LABS: Folate 11.2 ng/mL (> or = 4.0); Vitamin B12 159 pg/mL (200-900)
[2021-05-15 14:39] LABS: Lactate Dehydrogenase 171 U/L (122-220)
[2021-05-15 15:01] LABS: Ferritin 540 ng/mL (10-250)
== END 2021-05-15 11:24 | disposition home or self-care (01) ==
LOC: HO.LAB 11:23
PROVIDERS: PCP Internal Medicine Medical Oncology; Visit Provider Internal Medicine Medical Oncology
DX: C85.10 Unspecified B-cell lymphoma, unspecified site (principal); D53.9 Nutritional anemia, unspecified; E11.9 Type 2 diabetes mellitus without complications
CPT/HCPCS: 36415; 80053; 82607; 82728; 82746; 83036; 83615; 85025; 85045; 85652

== ENCOUNTER 2021-05-28 12:31 | Outpatient (REF) | payer MEDICARE, SELFPAY ==
[2021-06-02 14:32] LABS: Intrinsic Factor Antibodies Negative (Negative)
== END 2021-05-28 12:32 | disposition home or self-care (01) ==
LOC: HO.LAB 12:31
PROVIDERS: PCP Internal Medicine Medical Oncology; Visit Provider Internal Medicine Medical Oncology
DX: D53.9 Nutritional anemia, unspecified (principal); E53.8 Deficiency of other specified B group vitamins
CPT/HCPCS: 36415; 86340

== ENCOUNTER 2021-06-09 11:15 | Outpatient (REF) | payer MEDICARE, SELFPAY ==
[2021-06-09 12:35] LABS: Basophils Absolute Auto 0.1 X10*3/uL (0.0-0.2); Basophils Percent Auto 1.9 % (0-2); Eosinophils Percent Auto 0.2 % (0-4); Hematocrit 34.9 % (37.0-47.0); Hemoglobin 11.7 g/dl (12.0-16.0); Imm Gran Abs Auto 0.04 X10*3/uL (0.00-0.03); Imm Gran Pct Auto 0.7 % (0.0-0.4); Lymphocytes Absolute Auto 3.5 X10*3/uL (1.2-4.9); Lymphocytes Percent Auto 60.1 % (20-40); MANUAL DIFF FLAG SCAN; Mean Corpuscular HGB Conc 33.5 g/dl (31.0-35.0); Mean Corpuscular Hemoglobin 36.1 pg (27.0-33.0); Mean Corpuscular Volume 107.7 fL (80.0-98.0); Monocytes Absolute Auto 0.6 X10*3/uL (0.1-1.2); Monocytes Percent Auto 10.6 % (2-11); NRBC Pct Auto 0.5 /100WBC (0.0-0.2); Neutrophils Absolute Auto 1.6 x10*3/uL (2.0-8.3); Neutrophils Percent Auto 26.5 % (45-73); Red Blood Count 3.24 X10*6/uL (4.20-5.50); Red Cell Distribution Width 20.1 % (11.0-16.0); SCAN SMEAR FLAG 1; White Blood Count 5.9 X10*3/uL (4.8-10.8)
[2021-06-09 12:36] LABS: PLT ABN DIST 1
[2021-06-09 12:53] LABS: Alanine Aminotransferase 16 U/L (0-31); Albumin Level 4.1 g/dL (3.5-5.0); Alkaline Phosphatase 113 U/L (39-117); Anion Gap 16 (12-20); Aspartate Amino Transferase 13 U/L (5-31); Blood Urea Nitrogen 13 mg/dL (9-16); Calcium 9.3 mg/dL (8.4-10.2); Carbon Dioxide 25 mmol/L (22-29); Chloride 103 mmol/L (96-108); Estimated Glomerular Filt Rate 53; Glucose Random 133 mg/dL (60-115); Lactate Dehydrogenase 174 U/L (122-220); Potassium 4.6 mmol/L (3.3-5.1); Sodium 139 mmol/L (135-145); Total Protein 5.6 g/dL (6.5-8.0)
[2021-06-09 13:16] LABS: Erythrocyte Sedimentation Rate 2 MM/HR (0-20)
[2021-06-09 13:24] LABS: Platelet Count 219 X10*3/uL (160-400)
[2021-06-09 13:25] LABS: SLIDE REVIEW VERIFIED
== END 2021-06-09 11:16 | disposition home or self-care (01) ==
LOC: HO.LAB 11:15
PROVIDERS: PCP Internal Medicine Medical Oncology; Visit Provider Internal Medicine Medical Oncology
DX: C85.10 Unspecified B-cell lymphoma, unspecified site (principal)
CPT/HCPCS: 36415; 80053; 83615; 85025; 85652

== ENCOUNTER 2021-07-08 13:05 | Outpatient (REF) | payer MEDICARE, SELFPAY ==
[2021-07-08 14:16] LABS: Basophils Absolute Auto 0.1 X10*3/uL (0.0-0.2); Basophils Percent Auto 1.4 % (0-2); Eosinophils Percent Auto 0.4 % (0-4); Hematocrit 32.1 % (37.0-47.0); Hemoglobin 10.8 g/dl (12.0-16.0); Lymphocytes Percent Auto 59.2 % (20-40); MANUAL DIFF FLAG SCAN; Mean Corpuscular HGB Conc 33.6 g/dl (31.0-35.0); Mean Corpuscular Hemoglobin 37.9 pg (27.0-33.0); Monocytes Absolute Auto 0.6 X10*3/uL (0.1-1.2); Monocytes Percent Auto 11.7 % (2-11); NRBC Pct Auto 0.4 /100WBC (0.0-0.2); Neutrophils Absolute Auto 1.4 x10*3/uL (2.0-8.3); Neutrophils Percent Auto 27.3 % (45-73); PLT CLUMP 1; Red Blood Count 2.85 X10*6/uL (4.20-5.50); Red Cell Distribution Width 19.7 % (11.0-16.0); SCAN SMEAR FLAG 1
[2021-07-08 14:18] LABS: Mean Corpuscular Volume 112.6 fL (80.0-98.0)
[2021-07-08 14:35] LABS: Alanine Aminotransferase 14 U/L (0-31); Albumin Level 3.9 g/dL (3.5-5.0); Alkaline Phosphatase 128 U/L (39-117); Anion Gap 11 (12-20); Aspartate Amino Transferase 14 U/L (5-31); Bilirubin Total 0.5 mg/dL (0.0-1.0); Blood Urea Nitrogen 10 mg/dL (9-16); Calcium 9.1 mg/dL (8.4-10.2); Carbon Dioxide 26 mmol/L (22-29); Chloride 108 mmol/L (96-108); Estimated Glomerular Filt Rate 58; Glucose Random 118 mg/dL (60-115); Lactate Dehydrogenase 170 U/L (122-220); Potassium 4.2 mmol/L (3.3-5.1); Sodium 141 mmol/L (135-145); Total Protein 5.3 g/dL (6.5-8.0)
[2021-07-08 14:48] LABS: Platelet Count 170 X10*3/uL (160-400); White Blood Count 5.1 X10*3/uL (4.8-10.8)
[2021-07-08 14:49] LABS: SLIDE REVIEW VERIFIED
[2021-07-08 16:25] LABS: Vitamin B12 458 pg/mL (200-900)
== END 2021-07-08 13:06 | disposition home or self-care (01) ==
LOC: HO.LAB 13:05
PROVIDERS: PCP Internal Medicine Medical Oncology; Visit Provider Internal Medicine Medical Oncology
DX: C85.10 Unspecified B-cell lymphoma, unspecified site (principal); E53.8 Deficiency of other specified B group vitamins
CPT/HCPCS: 36415; 80053; 82607; 83615; 85025

== ENCOUNTER 2021-07-15 10:20 | Inpatient (IN) | payer MEDICARE, SELFPAY ==
--- NOTE | 2021-07-15 | ECG_ITS ---
Test Reason : FALL Blood Pressure : / mmHG Vent. Rate : 075 BPM Atrial Rate : 075 BPM P-R Int : 156 ms QRS Dur : 072 ms QT Int : 370 ms P-R-T Axes : 082 058 063 degrees QTc Int : 413 ms Normal sinus rhythm Normal ECG When compared with ECG of 26-MAR-2021 11:21, No significant change was found Referred By: Deandre Avitia Electronically Signed By:Burak Lozano
--- NOTE | ~2021-07-15 | XR_ITS ---
EXAMINATION: XR SHOULDER, LEFT CLINICAL INFORMATION: Injury. Fall. COMPARISON: CXR from 03/10/2021 TECHNIQUE: Three views of the left shoulder. FINDINGS: Bones are diffusely osteopenic. Acute, comminuted, displaced fracture of the distal third of the clavicle. The fragment that articulates with the acromion remains in normal position. The medial clavicle is superiorly displaced into the subcutaneous tissues and causes a focal bulge in contour of the skin. There is borderline widening of the coracoclavicular distance. The humeral head is intact and articulates normally with the glenoid. No evidence of scapular or upper rib fracture. No pneumothorax. Anterior cervical spinal fusion hardware is noted. XR/XR shoulder LT min 2V IMPRESSION: Acute, significantly displaced, comminuted fracture of the distal third of the clavicle.
--- NOTE | ~2021-07-15 | FL_ITS ---
EXAMINATION: XR FLUOROSCOPY WITH IMAGES CLINICAL INFORMATION: ORIF left clavicle COMPARISON: Left clavicle 07/15/2021 TECHNIQUE: Fluoroscopy performed by Adolph Morris. Fluoroscopy time: 0.1 minutes DAP: 0.0202 mGycm2 Images: 2 FINDINGS: Spot views show placement of orthopedic plate and screw in the distal clavicle FL/FL guidance in OR IMPRESSION: Status post ORIF distal left clavicle.
[2021-07-15 11:16] VITALS: BP 143/49; PULSE 92; RESP 18; TEMP 36.7; O2SAT 100; BMI 19.9
--- NOTE | 2021-07-15 12:44 | ED.EXTPRO ---
HPI - Extremity Problem General Chief complaint: Extremity Injury, Upper Stated complaint: left shoulder injury Time Seen by Provider: 07/15/21 12:10 Source: patient Mode of arrival: ambulatory Limitations: no limitations History of Present Illness HPI Narrative: 71-year-old female presents emergency room complaining of left shoulder pain. She states she was drinking heavily last night and she fell onto her arm. She denies hitting her head she denies loss of consciousness chest pain or cough. He she states when she woke this morning pain is still there so she came to be evaluated. MD Complaint: extremity pain and joint pain Related Data Home Medications Medication Instructions Recorded Confirmed acyclovir 400 mg tablet 400 mg PO BID 01/31/20 03/26/21 albuterol sulfate 90 mcg/actuation 1 puff PO Q4H PRN 01/31/20 03/26/21 aerosol inhaler levothyroxine 125 mcg tablet 125 mcg PO DAILY@0600 01/31/20 03/26/21 paroxetine HCl 20 mg tablet 20 mg PO DAILY 01/31/20 03/26/21 trazodone 100 mg tablet 100 mg PO BEDTIME 01/31/20 03/26/21 aspirin 81 mg chewable tablet 81 mg PO DAILY 03/10/21 03/26/21 diphenhydramine HCl 25 mg tablet 25 mg PO DAILY PRN 03/10/21 03/26/21 Previous Rx's Medication Instructions Recorded nicotine (polacrilex) 2 mg gum 2 mg BUCCAL Q2H PRN #60 ea 03/12/21 morphine 15 mg immediate release 7.5 mg PO BID PRN #10 tab 07/15/21 tablet Allergies Allergy/AdvReac Type Severity Reaction Status Date / Time adhesive tape Allergy Unknown RASH Verified 07/15/21 11:16 bacitracin [Bacitracin] Allergy Unknown RASH Verified 07/15/21 11:16 Review of Systems Review of Systems: Review of systems: General: Patient denies any fever chills recent illness or falls Musculoskeletal: Denies back pain or body aches or other injuries HEENT: denies headache, runny nose, ear pain Respiratory: denies shortness of breath, cough Cardiovascular: no chest pain or palpitations : denies dysuria, frequency Abdomen: no nausea vomiting denies abdominal pain Extremities: Left shoulder pain and bruising Skin: no diaphoresis Yes all other systems are reviewed and are negative PMFSH Past Medical History Medical History Anxiety COPD with asthma Depression Hypothyroidism Non-Hodgkin lymphoma in remission Surgical History H/O: hysterectomy History of salpingo-oophorectomy S/P angiogram of extremity (02/13/20) Family History Family History Father CAD (coronary artery disease) Social History Social History Household Members: None Housing: House Do you presently have visiting nurse or other home services: No Patient Tobacco Use Status: Current everyday Tobacco user Tobacco use type: Cigarette Cigarette Packs Per Day: 1 Cigarettes Per Day: 20.0 Years Smoked: 40 Second Hand Smoke Exposure: No Advance Directives: Yes Advance Directives on File: Yes Advance Directives Date on File: 03/11/21 service: No Current occupational status: retired Physical Exam Vital Signs: Vital Signs: Last Vital Signs Temp 98.0 F 07/15/21 11:16 Pulse 92 07/15/21 11:16 Resp 18 07/15/21 11:16 BP 143/49 H 07/15/21 11:16 Pulse Ox 100 07/15/21 11:16 BMI result Body Mass Index 19.9 General: Well-appearing well-nourished in no signs of distress HEENT: Normocephalic atraumatic Neck: No signs of JVD, no masses no tenderness or lymphadenopathy Cardiovascular: Regular rate and rhythm Respiratory: Clear to auscultation bilaterally Abdomen: Soft nontender no masses Extremities: Left shoulder held at the side and abducted tenderness to palpation along the clavicle no tenderness to the acromion does not appear to be dislocated she is able to extend her wrist separate her fingers and make the okay sign Normal pedal pulses no signs of edema Skin: Dry warm no rashes Back: No tenderness full ROM MDM - Extremity (Nontraumatic) MDM Narrative Medical decision making narrative: Clavicle or shoulder fracture does not appear dislocated I gave patient Tylenol Toradol. 1251 I consulted Latoya Zelaya orthopedic PA first call consutant for the ER with the skin bulge due to the superiory displaced medial clavicle portion to make sure they felt patient was safe to send home with shoulder sling. They will come and see the patient with the odd displacement and tenting of the skin with a sharp edge this could easily convert to a open fracture. As the patient is 71 she has increased risk of falls while on opiates I educated the patient on avoiding alcohol or driving while on opiates I did educate her on using the lowest dose possible subscript 7.5 mg b.i.d.. As needed for pain. Seen by Zahra Zelaya the patient will be admitted to Orthopedic service. Medical Records Attestation: I reviewed the patient's medical records. Imaging Data xR shoulder left: My impression: Mildly displaced comminuted clavicular fracture Discharge Plan Discharge Clinical Impression: Closed fracture of left clavicle Patient Disposition: Admitted as Observation Additional Instructions: Please call to follow up. If you have any other concerns please return to the ED. you should not drive while on morphine should not mix morphine with alcohol.
[2021-07-15] MEDS: Acetaminophen 325 MG TABLET 650 MG PO (12:58)
[2021-07-15] MEDS: Ketorolac Tromethamine 30 MG/ML VIAL 15 MG IM (13:00)
[2021-07-15] MEDS: Lactated Ringers 1,000 ML 100 ML IVCONT ×2 (14:10→23:34)
--- NOTE | 2021-07-15 14:20 | PHA.MEDREC ---
Pharmacy Consult ? Medication Reconciliation Pharmacy has completed the medication reconciliation.
[2021-07-15 14:41] LABS: COVID-19 Test Negative (Negative); IDNOW Serial# 16C4AD1C
--- NOTE | 2021-07-15 15:11 | P.HPOP_ITS ---
History of Present Illness History of Present Illness Date of Service: 07/15/21 Chief complaint: clavicle fracture Narrative: Merline Srinivasan is a 71 year old female who came to the ED due to left shoulder pain. She states she drank last night and fell, she denies hitting her head or LOC. She states she woke up this morning and had pain and difficulty moving the shoulder;therefore she came to the ED. Xrays in the ED showed a left clavicle fracture with superior displacement. Due to the nature of the fracture and tenting of the skin, this makes it high risk for becoming an open fracture. Due to this she was admitted to the orthopedic service for surgical planning. The patient states she does live alone and cares for herself. She does not use assistive devices. Review of Systems Review of Systems: per [facility] Past Medical History Medical History Anxiety COPD with asthma Depression Hypothyroidism Non-Hodgkin lymphoma in remission Functional capacity: independent ambulation Family History Family History Father CAD (coronary artery disease) Surgical History Surgical History H/O: hysterectomy History of salpingo-oophorectomy S/P angiogram of extremity (02/13/20) Social History Social History Household Members: None Housing: House Do you presently have visiting nurse or other home services: No Patient Tobacco Use Status: Current everyday Tobacco user Tobacco use type: Cigarette Cigarette Packs Per Day: 1 Cigarettes Per Day: 20.0 Years Smoked: 40 Second Hand Smoke Exposure: No Advance Directives: Yes Advance Directives on File: Yes Advance Directives Date on File: 03/11/21 service: No Current occupational status: retired Meds Allergies Allergy/AdvReac Type Severity Reaction Status Date / Time adhesive tape Allergy Unknown RASH Verified 07/15/21 11:16 bacitracin [Bacitracin] Allergy Unknown RASH Verified 07/15/21 11:16 Active Medications: Current Medications Acetaminophen (Acetaminophen Supp 650 Mg Supp.Rect) 650 mg RI Q6H PRN PRN Reason: Pain, Mild (Pain Scale 1-3) Docusate Sodium (Docusate Sodium 100 Mg Capsule) 100 mg PO BID [facility] Hydromorphone HCl (Hydromorphone Hcl 1 Mg/Ml Syringe) 0.25 mg IVPUSH Q4H PRN; Protocol PRN Reason: Pain, Severe (Pain Scale 7-10) Lactated Ringer's (Lr) 1,000 mls @ 100 mls/hr IVCONT .Q10H [facility] Last Admin: 07/15/21 14:10 Dose: 100 mls/hr Documented by: Ondansetron HCl (Ondansetron Hcl 4 Mg/2 Ml Vial) 4 mg IVPUSH Q8H PRN PRN Reason: Nausea and Vomiting Oxycodone HCl (Oxycodone Hcl Immed Release 5 Mg Tablet) 5 mg PO Q4H PRN PRN Reason: Pain, Moderate (Pain Scale 4-6 Sodium Chloride (0.9 % Sodium Chloride Flush 3 Ml Syringe) 3 ml IVFLUSH QSHIFT [facility] Home Medications Medication Instructions Recorded Confirmed Last Taken Type acyclovir 400 mg tablet 400 mg PO BID 01/31/20 07/15/21 07/15/21 History albuterol sulfate 90 mcg/actuation 1 puff PO Q4H PRN 01/31/20 07/15/21 03/09/21 History aerosol inhaler levothyroxine 125 mcg tablet 125 mcg PO DAILY@0600 01/31/20 07/15/21 07/15/21 History paroxetine HCl 20 mg tablet 20 mg PO DAILY 01/31/20 07/15/21 07/15/21 History trazodone 100 mg tablet 100 mg PO BEDTIME 01/31/20 07/15/21 07/14/21 History diphenhydramine HCl 25 mg tablet 25 mg PO DAILY PRN 03/10/21 07/15/21 Unknown History cyanocobalamin (vitamin B-12) 1 tab PO DAILY 07/15/21 07/15/21 07/15/21 History 1,000 mcg tablet Physical Exam Vital Signs: Vital Signs: Last Vital Signs Temp 98.0 F 07/15/21 11:16 Pulse 92 07/15/21 11:16 Resp 18 07/15/21 11:16 BP 143/49 H 07/15/21 11:16 Pulse Ox 100 07/15/21 11:16 BMI result Body Mass Index 19.9 Results Labs Labs: All other labs normal. Assessment and Plan (1) Closed fracture of left clavicle: Status: Acute Plan I discussed the case with Dr Lazar and explained the extent of the injury to the patient and options available which include surgical intervention. I explained the procedure in detail along with the length of recovery and rehab course. I explained the risk, benefits and alternatives. Risk including, but not limited to infection, blood clots, bleeding, non union or malunion and nerve /tissue damage to surrounding areas. I answered all their questions and with their understanding they have consented to move forward with Operative Fixation of the left clavicle . The patient will be T&S, med clearance obtained and NPO after midnight. Quality Stroke Does the patient have a stroke diagnosis?: No VTE Prior VTE?: No VTE Risk Level:: Surgical - very high VTE Device Contraindication: N/A - Device Ordered VTE Drug Contraindication: Treatment Not Indicated Procedures Date of Service Date of Service: 07/15/21
[2021-07-15 15:51] VITALS: BP 124/44; PULSE 74; TEMP 36.8; O2SAT 99
--- NOTE | 2021-07-15 16:46 | P.CONIM_ITS ---
History of Present Illness Data of Consult Service Date: 07/15/21 Requesting physician: Adolph Lazar Primary Care Provider: Burt Juarez MD HPI Reason for consult: preop 71-year-old female past medical history of anxiety, COPD with asthma, active smoker, ETOH use, depression, hypothyroidism, non-Hodgkin's lymphoma in remission, patient also had history of hip fracture left side last year-which got repaired in [facility]. Patient says that she fall-She states she drank last night and fell. Denies any chest pain or shortness of breath or palpitation or any loss of consciousness during this episode. Patient says that she drinks to ice beers weekly(around 1 liter). Never admitted for alcohol withdrawal or any alcohol related issues. Last time was admitted with COVID in 03/25/21. Patient has had 4 COVID shots: The last COVID shot was 06/12. Patient has clavicular area pain otherwise denies any chest pain or shortness of breath or abdominal pain or fever chills or cough or phlegm or nausea vomiting or diarrhea or abdominal pain. Denies any weakness or numbness. She denies any history of cardiac disease or diabetes or so CVA or kidney problems. She said that ever since she had hip surgery she can only walk 1-2 blocks. She can climb 3 flights of stairs because she lives on the 3rd floor. Review of Systems Review of Systems: As above. Yes all other systems are reviewed and are negative [facility] Medical History Anxiety COPD with asthma Depression Hypothyroidism Non-Hodgkin lymphoma in remission Functional capacity: independent ambulation Family History Father CAD (coronary artery disease) Pertinent family history: Further history of CAD as above. Surgical History H/O: hysterectomy History of salpingo-oophorectomy S/P angiogram of extremity (02/13/20) Social History Household Members: None Housing: House Do you presently have visiting nurse or other home services: No Patient Tobacco Use Status: Current everyday Tobacco user Tobacco use type: Cigarette Cigarette Packs Per Day: 1 Cigarettes Per Day: 20.0 Years Smoked: 40 Second Hand Smoke Exposure: No Advance Directives: Yes Advance Directives on File: Yes Advance Directives Date on File: 03/11/21 service: No Current occupational status: retired Meds Allergies Allergy/AdvReac Type Severity Reaction Status Date / Time adhesive tape Allergy Unknown RASH Verified 07/15/21 11:16 bacitracin [Bacitracin] Allergy Unknown RASH Verified 07/15/21 11:16 Active Medications: Current Medications Acetaminophen (Acetaminophen Supp 650 Mg Supp.Rect) 650 mg [place] Q6H PRN PRN Reason: Pain, Mild (Pain Scale 1-3) Docusate Sodium (Docusate Sodium 100 Mg Capsule) 100 mg PO BID [facility] Hydromorphone HCl (Hydromorphone Hcl 1 Mg/Ml Syringe) 0.25 mg IVPUSH Q4H PRN; Protocol PRN Reason: Pain, Severe (Pain Scale 7-10) Lactated Ringer's (Lr) 1,000 mls @ 100 mls/hr IVCONT .Q10H [facility] Last Admin: 07/15/21 14:10 Dose: 100 mls/hr Documented by: Cefazolin Sodium/Dextrose (Ancef) 2 gm in 50 mls @ 100 mls/hr IV PREOP ONE Stop: 07/16/21 07:01 Ondansetron HCl (Ondansetron Hcl 4 Mg/2 Ml Vial) 4 mg IVPUSH Q8H PRN PRN Reason: Nausea and Vomiting Oxycodone HCl (Oxycodone Hcl Immed Release 5 Mg Tablet) 5 mg PO Q4H PRN PRN Reason: Pain, Moderate (Pain Scale 4-6 Sodium Chloride (0.9 % Sodium Chloride Flush 3 Ml Syringe) 3 ml IVFLUSH QSHIFT [facility] Home Medications Medication Instructions Recorded Confirmed Last Taken Type acyclovir 400 mg tablet 400 mg PO BID 01/31/20 07/15/21 07/15/21 History albuterol sulfate 90 mcg/actuation 1 puff PO Q4H PRN 01/31/20 07/15/21 03/09/21 History aerosol inhaler levothyroxine 125 mcg tablet 125 mcg PO DAILY@0600 01/31/20 07/15/21 07/15/21 History paroxetine HCl 20 mg tablet 20 mg PO DAILY 01/31/20 07/15/21 07/15/21 History trazodone 100 mg tablet 100 mg PO BEDTIME 01/31/20 07/15/21 07/14/21 History diphenhydramine HCl 25 mg tablet 25 mg PO DAILY PRN 03/10/21 07/15/21 Unknown History cyanocobalamin (vitamin B-12) 1 tab PO DAILY 07/15/21 07/15/21 07/15/21 History 1,000 mcg tablet Physical Exam Vital Signs and Narrative: Vital Signs: Last Vital Signs Temp 98.2 F 07/15/21 15:51 Pulse 74 07/15/21 15:51 Resp 18 07/15/21 11:16 BP 124/44 L 07/15/21 15:51 Pulse Ox 99 07/15/21 15:51 BMI result Body Mass Index 19.9 Appearance: Alert.? Oriented X3.? somw what pain.? Eyes: Pupils equal, round and reactive to light.? Sclera nonicteric.? ENT: Pharynx normal.? Moist mucous membranes. cvs: rrr, [id number] . res: clear to auscultation ,no rales or wheezing,left clavicular area pain with touch. abd: no rebound or guarding ,nt, bs present. ext pulses present , no cyanosis . neuro: axo3 , nonfocal. Results Labs Labs: Laboratory Results - last 24 hr 07/15/21 07/15/21 14:00 14:06 COVID-19 ([facility]) Negative COVID-19 Clin Com See Note Blood Type O Positive Antibody Screen NEGATIVE Imaging Radiologist's Impressions: Impressions Shoulder X-Ray 07/15/21 12:05 IMPRESSION: Acute, significantly displaced, comminuted fracture of the distal third of the clavicle. Assessment and Plan (1) Closed fracture of left clavicle: Status: Acute (2) COPD with asthma: Status: Acute Plan 71-year-old female with left clavicular fracture. Left clavicular fracture: Continue Dilaudid, oxycodone Incentive spirometry Bowel regimen Patient does not have any history of CAD, CVA, diabetes, CKD, function status is also somewhat maintained. Patient is intermediate risk for given surgical procedure. depression/Anxiety: Continue home medication. COPD with asthma: Stable, continue nebs. Hypothyroidism: Continue home medication. Non-Hodgkin lymphoma in remission: Follows up with Dr. Juarez. Patient is on acyclovir prophylaxis due to above. Active smoker: Started on nicotine gum. Alcohol use: Patient says that she drinks 2 beers a week, we will monitor her on CIWA scale Added Thiamine folic acid dvt prohylax: mech device. Above management discussed the patient in detail length she understand and in agreement with the plan, thanks for letting us participate in patient care, will follow along with you.
[2021-07-15] MEDS: 0.9 % Sodium Chloride Flush 3 ML SYRINGE IVFLUSH (17:35)
[2021-07-15] MEDS: Acyclovir 200 MG CAPSULE 400 MG PO (20:11)
[2021-07-15] MEDS: Sennosides 8.6 MG TABLET PO (20:13)
[2021-07-15] MEDS: Docusate Sodium 100 MG CAPSULE PO (20:13)
[2021-07-15] MEDS: oxyCODONE HCl Immed Release 5 MG TABLET PO (20:13)
[2021-07-15] MEDS: traZODone HCL 100 MG TABLET PO (20:13)
[2021-07-15 20:42] VITALS: BP 119/45; PULSE 77; RESP 18; O2SAT 99
[2021-07-16] VITALS (11 sets, daily range): BP systolic 92–132; BP diastolic 46–72; PULSE 68–94; RESP 15–18; TEMP 36.4–37.6; O2SAT 90–100
--- NOTE | 2021-07-16 01:08 | PC.NURSE ---
Addendum entered by Blanca Solorzano 07/16/21 06:56: Report given to ATIF valadez OR Report given to ATIF Joyce Original Note: pt arrived alert and oriented. resting in bed comfortably. denies any chest pain or sob. breathing equally unlabored. pt arrived with L arm sling in placed
[2021-07-16] MEDS: Levothyroxine Sodium 125 MCG TABLET PO (05:00)
[2021-07-16] MEDS: oxyCODONE HCl Immed Release 5 MG TABLET PO ×2 (05:00→23:56)
[2021-07-16 07:44] LABS: Hematocrit 26.7 % (37.0-47.0); Lymphocytes Absolute Auto 2.4 X10*3/uL (1.2-4.9); MANUAL DIFF FLAG SCAN; Mean Corpuscular HGB Conc 33.7 g/dl (31.0-35.0); Mean Corpuscular Hemoglobin 38.5 pg (27.0-33.0); Monocytes Absolute Auto 0.6 X10*3/uL (0.1-1.2); Monocytes Percent Auto 15.2 % (2-11); Neutrophils Absolute Auto 0.8 x10*3/uL (2.0-8.3); Neutrophils Percent Auto 20.8 % (45-73); Platelet Count 181 X10*3/uL (160-400); Red Blood Count 2.34 X10*6/uL (4.20-5.50); Red Cell Distribution Width 18.2 % (11.0-16.0); SCAN SMEAR FLAG 1; White Blood Count 3.9 X10*3/uL (4.8-10.8)
[2021-07-16 07:47] LABS: Mean Corpuscular Volume 114.1 fL (80.0-98.0)
[2021-07-16 08:00] LABS: Anion Gap 10 (12-20); Blood Urea Nitrogen 13 mg/dL (9-16); Calcium 8.5 mg/dL (8.4-10.2); Carbon Dioxide 28 mmol/L (22-29); Chloride 108 mmol/L (96-108); Creatinine Clr Calc Pharmacy 47.1; Estimated Glomerular Filt Rate > 60; Glucose Fasting 94 mg/dL (60-99); Potassium 4.3 mmol/L (3.3-5.1); Sodium 142 mmol/L (135-145)
[2021-07-16 08:17] LABS: SLIDE REVIEW VERIFIED
[2021-07-16] MEDS: Acyclovir 200 MG CAPSULE 400 MG PO ×2 (08:46→20:32)
[2021-07-16] MEDS: PARoxetine HCL 20 MG TABLET PO (08:46)
[2021-07-16] MEDS: Cyanocobalamin (Vitamin B-12) 1,000 MCG TABLET 1000 MCG PO (08:46)
[2021-07-16] MEDS: ceFAZolin Sodium/Dextrose,Iso 2 GM/50 ML PIGGYBACK IV (08:47)
[2021-07-16] MEDS: Lactated Ringers 1,000 ML 100 ML IVCONT ×2 (08:47→18:07)
[2021-07-16] MEDS: Thiamine HCL 100 MG TABLET PO (08:48)
[2021-07-16] MEDS: Docusate Sodium 100 MG CAPSULE PO ×2 (08:49→20:32)
[2021-07-16] MEDS: Folic Acid 1 MG TABLET PO (08:49)
--- NOTE | 2021-07-16 11:53 | MHC.CM.PN ---
Met with patient in regards to discharge planning. Patient lives alone, uses a cane occasionally and had no services prior to coming to the hospital. PCP verified. New HCP completed, signed and witnessed. Original given to patient. Copy placed in chart. IMM explained and signed. Patient received 4 Moderna vaccines. Patient understands she will be discharged after surgery. She is denying the need for short term rehab or VNA. Patient has friends that will transport her home. Continue to monitor for d/c needs.
--- NOTE | 2021-07-16 13:11 | PC.NURSE ---
patient heading to short stay for surgery, staff at bedside, pt currently a&ox3, c/o 06/30 pain, pt taking off all jewelry for surgery
--- NOTE | 2021-07-16 13:55 | P.CONAN_ITS ---
HPI - Anesthesia Eval Consult details Narrative: Fracture left clavicle PMFSH Active Problems Active Problems: All Active Problems (Updated 07/15/21 @ 12:56 by Joesph Figueroa DO) Closed fracture of left clavicle (Acute) Syncope (Acute) Colitis (Acute) COVID-19 (Acute) COPD with asthma (Acute) History of back surgery (Acute) History of cataract surgery (Acute) H/O neck surgery (Acute) GERD (gastroesophageal reflux disease) (Acute) Hyperlipidemia (Acute) Non-Hodgkin lymphoma in remission (Acute) Hypothyroidism (Acute) Depression (Acute) Anxiety (Acute) History of salpingo-oophorectomy (Acute) H/O: hysterectomy (Acute) PAD (peripheral artery disease) (Acute) Past Medical History Medical History Anxiety COPD with asthma Depression Hypothyroidism Non-Hodgkin lymphoma in remission Functional capacity: independent ambulation Family History Family History Father CAD (coronary artery disease) Family history of problems with anesthesia: No Surgical History Surgical History H/O: hysterectomy History of salpingo-oophorectomy S/P angiogram of extremity (02/13/20) History of Problems with Anesthesia: No Social History Social History Household Members: None Housing: House Do you presently have visiting nurse or other home services: No Patient Tobacco Use Status: Current everyday Tobacco user Tobacco use type: Cigarette and Cigar Cigarette Packs Per Day: 1 Cigarettes Per Day: 20 Years Smoked: 40 Smoked in Last 30 Days: Yes Second Hand Smoke Exposure: No Use of substances other than those prescribed or required for medical reasons: No Are you DNR?: No Advance Directives: Yes Advance Directives on File: Yes Advance Directives Date on File: 03/11/21 service: No Current occupational status: retired Meds Allergies Allergy/AdvReac Type Severity Reaction Status Date / Time adhesive tape Allergy Unknown RASH Verified 07/15/21 11:16 bacitracin [Bacitracin] Allergy Unknown RASH Verified 07/15/21 11:16 Active Medications: Current Medications Acetaminophen (Acetaminophen Supp 650 Mg Supp.Rect) 650 mg [place] Q6H PRN PRN Reason: Pain, Mild (Pain Scale 1-3) Acyclovir (Acyclovir 200 Mg Capsule) 400 mg PO BID COUNTS INCLUDE 234 BEDS AT THE [facility] Last Admin: 07/16/21 08:46 Dose: 400 mg Documented by: Albuterol/Ipratropium (Albuterol/Iprat 2.5/0.5mg 3 Ml Ampul.Neb) 3 ml INHALE RQ4H WHILE AWAKE COUNTS INCLUDE 234 BEDS AT THE [facility] Last Admin: 07/16/21 11:34 Dose: Not Given Documented by: Cyanocobalamin (Cyanocobalamin (Vitamin B-12) 1,000 Mcg Tablet) 1,000 mcg PO DAILY COUNTS INCLUDE 234 BEDS AT THE [facility] Last Admin: 07/16/21 08:46 Dose: 1,000 mcg Documented by: Diphenhydramine HCl (Diphenhydramine Hcl 25 Mg Tablet) 25 mg PO DAILY PRN PRN Reason: Allergy Symptoms Docusate Sodium (Docusate Sodium 100 Mg Capsule) 100 mg PO BID COUNTS INCLUDE 234 BEDS AT THE [facility] Last Admin: 07/16/21 08:49 Dose: 100 mg Documented by: Docusate Sodium (Docusate Sodium 100 Mg Capsule) 100 mg PO BEDTIME COUNTS INCLUDE 234 BEDS AT THE [facility] Last Admin: 07/15/21 20:53 Dose: Not Given Documented by: Folic Acid (Folic Acid 1 Mg Tablet) 1 mg PO DAILY COUNTS INCLUDE 234 BEDS AT THE [facility] Last Admin: 07/16/21 08:49 Dose: 1 mg Documented by: Hydromorphone HCl (Hydromorphone Hcl 1 Mg/Ml Syringe) 0.25 mg IVPUSH Q4H PRN; Protocol PRN Reason: Pain, Severe (Pain Scale 7-10) Lactated Ringer's (Lr) 1,000 mls @ 100 mls/hr IVCONT .Q10H COUNTS INCLUDE 234 BEDS AT THE [facility] Last Infusion: 07/16/21 13:14 Dose: 0 mls/hr Documented by: Levothyroxine Sodium (Levothyroxine Sodium 125 Mcg Tablet) 125 mcg PO DAILY@0600 COUNTS INCLUDE 234 BEDS AT THE [facility] Last Admin: 07/16/21 05:00 Dose: 125 mcg Documented by: Nicotine Polacrilex (Nicotine Polacrilex 2 Mg Gum) 2 mg BUCC[place] Q2H PRN PRN Reason: smoking Ondansetron HCl (Ondansetron Hcl 4 Mg/2 Ml Vial) 4 mg IVPUSH Q8H PRN PRN Reason: Nausea and Vomiting Oxycodone HCl (Oxycodone Hcl Immed Release 5 Mg Tablet) 5 mg PO Q4H PRN PRN Reason: Pain, Moderate (Pain Scale 4-6 Last Admin: 07/16/21 05:00 Dose: 5 mg Documented by: Paroxetine HCl (Paroxetine Hcl 20 Mg Tablet) 20 mg PO DAILY COUNTS INCLUDE 234 BEDS AT THE [facility] Last Admin: 07/16/21 08:46 Dose: 20 mg Documented by: Senna (Sennosides 8.6 Mg Tablet) 8.6 mg PO BEDTIME COUNTS INCLUDE 234 BEDS AT THE [facility] Last Admin: 07/15/21 20:13 Dose: 8.6 mg Documented by: Sodium Chloride (0.9 % Sodium Chloride Flush 3 Ml Syringe) 3 ml IVFLUSH QSHIFT COUNTS INCLUDE 234 BEDS AT THE [facility] Last Admin: 07/16/21 10:42 Dose: Not Given Documented by: Thiamine HCl (Thiamine Hcl 100 Mg Tablet) 100 mg PO DAILY COUNTS INCLUDE 234 BEDS AT THE [facility] Last Admin: 07/16/21 08:48 Dose: 100 mg Documented by: Trazodone HCl (Trazodone Hcl 100 Mg Tablet) 100 mg PO BEDTIME COUNTS INCLUDE 234 BEDS AT THE [facility] Last Admin: 07/15/21 20:13 Dose: 100 mg Documented by: Home Medications Medication Instructions Recorded Confirmed Last Taken Type acyclovir 400 mg tablet 400 mg PO BID 01/31/20 07/15/21 07/15/21 History albuterol sulfate 90 mcg/actuation 1 puff PO Q4H PRN 01/31/20 07/15/21 03/09/21 History aerosol inhaler levothyroxine 125 mcg tablet 125 mcg PO DAILY@0600 01/31/20 07/15/21 07/15/21 History paroxetine HCl 20 mg tablet 20 mg PO DAILY 01/31/20 07/15/21 07/15/21 History trazodone 100 mg tablet 100 mg PO BEDTIME 01/31/20 07/15/21 07/14/21 History diphenhydramine HCl 25 mg tablet 25 mg PO DAILY PRN 03/10/21 07/15/21 Unknown History cyanocobalamin (vitamin B-12) 1 tab PO DAILY 07/15/21 07/15/21 07/15/21 History 1,000 mcg tablet Exam Exam Date and Time: July 16, 2021 1355 Height,Weight and Vital Signs: Height 5 ft 4 in Weight 52.7 kg Last Vital Signs Temp 99.6 F 07/16/21 13:27 Pulse 70 07/16/21 13:27 Resp 16 07/16/21 13:27 BP 132/72 07/16/21 13:27 Pulse Ox 98 07/16/21 13:27 Pertinent Lab Results Pertinent Lab Results: Laboratory Tests 07/15/21 07/15/21 07/16/21 14:00 14:06 07:35 WBC 3.9 L RBC 2.34 L Hgb 9.0 L Hct 26.7 L MCV 114.1 H MCH 38.5 H MCHC 33.7 RDW 18.2 H Plt Count 181 MPV 13.0 H Immature Gran % (Auto) 0.0 Neut % (Auto) 20.8 L Lymph % (Auto) 62.0 H [place] % (Auto) 15.2 H Eos % (Auto) 1.0 Baso % (Auto) 1.0 Lymph # (Auto) 2.4 [place] # (Auto) 0.6 Eos # (Auto) 0.0 Baso # (Auto) 0.0 Abs Immat Gran (auto) 0.00 Absolute Neuts (auto) 0.8 L Absolute Nucleated RBC 0.000 Nucleated RBC % (auto) 0.0 Smear Tech's Comments VERIFIED Smear Path Review SEE NOTE Sodium Potassium Chloride Carbon Dioxide Anion Gap BUN Creatinine Estim Creat Clear Calc Estimated GFR Fasting Glucose Calcium COVID-19 ([facility]) Negative [employer] See Note Blood Type O Positive Antibody Screen NEGATIVE 07/16/21 07:35 WBC RBC Hgb Hct MCV MCH MCHC RDW Plt Count MPV Immature Gran % (Auto) Neut % (Auto) Lymph % (Auto) [place] % (Auto) Eos % (Auto) Baso % (Auto) Lymph # (Auto) [place] # (Auto) Eos # (Auto) Baso # (Auto) Abs Immat Gran (auto) Absolute Neuts (auto) Absolute Nucleated RBC Nucleated RBC % (auto) Smear Tech's Comments Smear Path Review Sodium 142 Potassium 4.3 Chloride 108 Carbon Dioxide 28 Anion Gap 10 L BUN 13 Creatinine 0.91 Estim Creat Clear Calc 47.1 Estimated GFR > 60 Fasting Glucose 94 Calcium 8.5 D COVID-19 ([facility]) COVID-19 AfterYes Com Blood Type Antibody Screen Airway Mallampati Class: II TM Dist: >3cm Neck ROM: Full Denture: Upper and Lower Loose/Missing/Broken Teeth: Yes Heart: [id number] Lungs: cta b/l Assessment and Plan Assessment Anesthesia Assessment: Anesthesia Plan Discussed and Chart Reviewed Final Anesthetic Review Family History of Problems with Anesthesia: No History of Problems with Anesthesia: No NPO: Yes ASA Class: III Final Preanesthetic Review: No Changes in Pt Med Stat, Meds/Allgs Chart Reviewed, Consent Obtained/Reviewed and Anes Risks/Benef Reviewed Patient Risk: Intermediate Procedure Risk: Intermediate Assessment/Block/Sedation in SS: Assess/Block/Sedation-SS Anesthetic Plan Anesthetic Plan: GA and Agree w/ Assess. and Plan Disposition: Standard PACU
--- NOTE | 2021-07-16 15:22 | PM.OP ---
Brief Operative Note Date of Service: 07/16/21 Pre-op diagnosis: left distal clavicle fracture Post-op diagnosis: same Procedure: ORIF left distal clavicle Implants: [place] 12 mm 6 hole hook plate Surgeon: Adolph Lazar MD Anesthesia: GETA Was an Ultrasound Technician used for this Procedure?: No Estimated blood loss (mL): 50 IV fluids (mL): 600 Pathology: none sent Condition: stable Disposition: PACU
[2021-07-16] MEDS: Sennosides 8.6 MG TABLET PO (20:32)
[2021-07-16] MEDS: traZODone HCL 100 MG TABLET PO (20:32)
[2021-07-17 03:48] VITALS: BP 103/50; PULSE 76; RESP 18; TEMP 36.4; O2SAT 98
[2021-07-17] MEDS: Lactated Ringers 1,000 ML 100 ML IVCONT (04:08)
[2021-07-17] MEDS: Levothyroxine Sodium 125 MCG TABLET PO (05:37)
[2021-07-17 05:41] LABS: MANUAL DIFF FLAG NO
[2021-07-17 05:44] LABS: Basophils Percent Auto 0.2 % (0-2); Hematocrit 25.8 % (37.0-47.0); Hemoglobin 8.6 g/dl (12.0-16.0); Imm Gran Abs Auto 0.03 X10*3/uL (0.00-0.03); Imm Gran Pct Auto 0.6 % (0.0-0.4); Lymphocytes Absolute Auto 1.2 X10*3/uL (1.2-4.9); Lymphocytes Percent Auto 24.9 % (20-40); Mean Corpuscular HGB Conc 33.3 g/dl (31.0-35.0); Mean Corpuscular Hemoglobin 38.2 pg (27.0-33.0); Mean Platelet Volume 12.9 fL (9.4-12.3); Monocytes Absolute Auto 0.5 X10*3/uL (0.1-1.2); Monocytes Percent Auto 10.6 % (2-11); NRBC Pct Auto 0.4 /100WBC (0.0-0.2); Neutrophils Percent Auto 63.7 % (45-73); Platelet Count 186 X10*3/uL (160-400); Red Blood Count 2.25 X10*6/uL (4.20-5.50); Red Cell Distribution Width 17.9 % (11.0-16.0); White Blood Count 4.7 X10*3/uL (4.8-10.8)
[2021-07-17 05:48] LABS: Mean Corpuscular Volume 114.7 fL (80.0-98.0)
[2021-07-17 06:07] LABS: Anion Gap 9 (12-20); Blood Urea Nitrogen 13 mg/dL (9-16); Calcium 8.4 mg/dL (8.4-10.2); Carbon Dioxide 29 mmol/L (22-29); Chloride 104 mmol/L (96-108); Creatinine Clr Calc Pharmacy 40.5; Estimated Glomerular Filt Rate 51; Glucose Fasting 166 mg/dL (60-99); Potassium 5.1 mmol/L (3.3-5.1); Sodium 137 mmol/L (135-145)
--- NOTE | 2021-07-17 06:53 | HO.POSTANES ---
Post Anesthesia Evaluation Post Anesthesia Evaluation Vital Signs: Vital Signs Temp Pulse Resp BP Pulse Ox 07/17/21 03:48 97.6 F 76 18 103/50 L 98 07/16/21 23:36 97.9 F 88 18 117/54 L 97 07/16/21 20:00 98.3 F 82 17 99/54 L 100 Anesthesia: General Endotracheal-GETA Mental Status: Awake Pain Control: Satisfactory Nausea/Vomiting: None Hydration: Adequate Anesthesia-Related Issues: No Anes. Related Issues
[2021-07-17 07:30] VITALS: BP 112/52; PULSE 65; RESP 19; TEMP 36.2; O2SAT 99
--- NOTE | 2021-07-17 07:41 | P.PNIM_ITS ---
Subjective Subjective Date of Service: 07/17/21 Interval History: clavicular fracture Review of Systems Patient was discharged before went to see her. Physical Exam Vital Signs: Vital Signs: Last Vital Signs Temp 97.2 F 07/17/21 07:30 Pulse 65 07/17/21 07:30 Resp 19 07/17/21 07:30 BP 112/52 L 07/17/21 07:30 Pulse Ox 99 07/17/21 07:30 BMI result Body Mass Index 19.9 Objective Data Active Medications Acetaminophen (Acetaminophen Supp 650 Mg Supp.Rect) 650 mg FL Q6H PRN PRN Reason: Pain, Mild (Pain Scale 1-3) Acyclovir (Acyclovir 200 Mg Capsule) 400 mg PO BID [facility] Last Admin: 07/16/21 20:32 Dose: 400 mg Documented by: MIGUEL A Albuterol/Ipratropium (Albuterol/Iprat 2.5/0.5mg 3 Ml Ampul.Neb) 3 ml INHALE RQ4H WHILE AWAKE [facility] Last Admin: 07/16/21 20:12 Dose: Not Given Documented by: JULISSA Non-Admin Reason: Patient Refused Cyanocobalamin (Cyanocobalamin (Vitamin B-12) 1,000 Mcg Tablet) 1,000 mcg PO DAILY [facility] Last Admin: 07/16/21 08:46 Dose: 1,000 mcg Documented by: DELVIS Diphenhydramine HCl (Diphenhydramine Hcl 25 Mg Tablet) 25 mg PO DAILY PRN PRN Reason: Allergy Symptoms Docusate Sodium (Docusate Sodium 100 Mg Capsule) 100 mg PO BID [facility] Last Admin: 07/16/21 20:32 Dose: 100 mg Documented by: MIGUEL A Docusate Sodium (Docusate Sodium 100 Mg Capsule) 100 mg PO BEDTIME [facility] Last Admin: 07/16/21 20:32 Dose: Not Given Documented by: MIGUEL A Non-Admin Reason: Duplicate Order Fentanyl (Fentanyl Citrate/Pf 100 Mcg/2 Ml Vial) 50 mcg IVPUSH Q5M PRN; Protocol PRN Reason: Pain, Severe (Pain Scale 7-10) Folic Acid (Folic Acid 1 Mg Tablet) 1 mg PO DAILY [facility] Last Admin: 07/16/21 08:49 Dose: 1 mg Documented by: DELVIS Hydromorphone HCl (Hydromorphone Hcl 1 Mg/Ml Syringe) 0.25 mg IVPUSH Q4H PRN; Protocol PRN Reason: Pain, Severe (Pain Scale 7-10) Lactated Ringer's (Lr) 1,000 mls @ 100 mls/hr IVCONT .Q10H [facility] Last Admin: 07/17/21 04:08 Dose: 100 mls/hr Documented by: MIGUEL A Levothyroxine Sodium (Levothyroxine Sodium 125 Mcg Tablet) 125 mcg PO LYNETTE Y@0600 [facility] Last Admin: 07/17/21 05:37 Dose: 125 mcg Documented by: MIGUEL A Nicotine Polacrilex (Nicotine Polacrilex 2 Mg Gum) 2 mg BUCCAL Q2H PRN PRN Reason: smoking Ondansetron HCl (Ondansetron Hcl 4 Mg/2 Ml Vial) 4 mg IVPUSH Q8H PRN PRN Reason: Nausea and Vomiting Ondansetron HCl (Ondansetron Hcl 4 Mg/2 Ml Vial) 4 mg IVPUSH ONCE PRN PRN Reason: Nausea and Vomiting Oxycodone HCl (Oxycodone Hcl Immed Release 5 Mg Tablet) 5 mg PO Q4H PRN PRN Reason: Pain, Moderate (Pain Scale 4-6 Last Admin: 07/16/21 23:56 Dose: 5 mg Documented by: MIGUEL A Paroxetine HCl (Paroxetine Hcl 20 Mg Tablet) 20 mg PO DAILY [facility] Last Admin: 07/16/21 08:46 Dose: 20 mg Documented by: DELVIS Senna (Sennosides 8.6 Mg Tablet) 8.6 mg PO BEDTIME [facility] Last Admin: 07/16/21 20:32 Dose: 8.6 mg Documented by: MIGUEL A Sodium Chloride (0.9 % Sodium Chloride Flush 3 Ml Syringe) 3 ml IVFLUSH QSHIFT [facility] Last Admin: 07/16/21 20:34 Dose: Not Given Documented by: MIGUEL A Non-Admin Reason: IV Running Thiamine HCl (Thiamine Hcl 100 Mg Tablet) 100 mg PO DAILY [facility] Last Admin: 07/16/21 08:48 Dose: 100 mg Documented by: DELVIS Trazodone HCl (Trazodone Hcl 100 Mg Tablet) 100 mg PO BEDTIME [facility] Last Admin: 07/16/21 20:32 Dose: 100 mg Documented by: MIGUEL A Labs CBC & Chem 7: 07/17/21 05:31 07/17/21 05:31 Labs: Laboratory Results - last 24 hr 07/16/21 07/16/21 07/17/21 07:35 07:35 05:31 MCV 114.1 H 114.7 H MCH 38.5 H 38.2 H MCHC 33.7 33.3 RDW 18.2 H 17.9 H Plt Count 181 186 MPV 13.0 H 12.9 H Immature Gran % (Auto) 0.0 0.6 H Neut % (Auto) 20.8 L 63.7 Lymph % (Auto) 62.0 H 24.9 [place] % (Auto) 15.2 H 10.6 Eos % (Auto) 1.0 0.0 Baso % (Auto) 1.0 0.2 Lymph # (Auto) 2.4 1.2 [place] # (Auto) 0.6 0.5 Eos # (Auto) 0.0 0.0 Baso # (Auto) 0.0 0.0 Abs Immat Gran (auto) 0.00 0.03 Absolute Neuts (auto) 0.8 L 3.0 Absolute Nucleated RBC 0.000 0.020 H Nucleated RBC % (auto) 0.0 0.4 H Smear Tech's Comments VERIFIED Smear Path Review SEE NOTE Anion Gap 10 L Estim Creat Clear Calc 47.1 Estimated GFR > 60 Fasting Glucose 94 Calcium 8.5 D 07/17/21 05:31 MCV MCH MCHC RDW Plt Count MPV Immature Gran % (Auto) Neut % (Auto) Lymph % (Auto) [place] % (Auto) Eos % (Auto) Baso % (Auto) Lymph # (Auto) [place] # (Auto) Eos # (Auto) Baso # (Auto) Abs Immat Gran (auto) Absolute Neuts (auto) Absolute Nucleated RBC Nucleated RBC % (auto) Smear Tech's Comments Smear Path Review Anion Gap 9 L Estim Creat Clear Calc 40.5 Estimated GFR 51 Fasting Glucose 166 H Calcium 8.4 Assessment and Plan (1) Closed fracture of left clavicle: Status: Acute Plan 71-year-old female with left clavicular fracture s/p surgery-patient discharged before event to see the patient. Quality Stroke Does the patient have a stroke diagnosis?: No VTE Prior VTE?: No VTE Risk Level:: Surgical - very high VTE Device Contraindication: N/A - Device Ordered VTE Drug Contraindication: Treatment Not Indicated
--- NOTE | 2021-07-17 08:19 | MHC.CM.PN ---
PT MEDICALLY CLEARED FOR D/C HOME SELF-CARE AND FOLLOW-UP W/ORTHO, FAMILY FOR TRANSPORT
[2021-07-17] MEDS: Cyanocobalamin (Vitamin B-12) 1,000 MCG TABLET 1000 MCG PO (08:52)
[2021-07-17] MEDS: Acyclovir 200 MG CAPSULE 400 MG PO (08:52)
[2021-07-17] MEDS: Thiamine HCL 100 MG TABLET PO (08:53)
[2021-07-17] MEDS: Folic Acid 1 MG TABLET PO (08:53)
[2021-07-17] MEDS: 0.9 % Sodium Chloride Flush 3 ML SYRINGE IVFLUSH ×2 (08:53→09:56)
[2021-07-17] MEDS: PARoxetine HCL 20 MG TABLET PO (08:53)
[2021-07-17] MEDS: oxyCODONE HCl Immed Release 5 MG TABLET PO (08:53)
[2021-07-17] MEDS: Docusate Sodium 100 MG CAPSULE PO (08:53)
--- NOTE | 2021-07-17 14:38 | P.OP_ITS ---
Operative Note Operative Note Date of Service: 07/16/21 Narrative: Date of Service: 07/16/21 Pre-op diagnosis: left distal clavicle fracture Post-op diagnosis: same Procedure: ORIF left distal clavicle Implants: Philippe 12 mm 6 hole? hook plate Surgeon: Adolph Lazar MD Anesthesia: GETA Was an Weaving Supervisor used for this Procedure?: No Estimated blood loss (mL): 50 IV fluids (mL): 600 Pathology: none sent Condition: stable Disposition: PACU Indications: This is a 71-year-old woman who presented with a displaced distal clavicle fracture with skin tenting and ecchymosis. She was admitted to the hospital to undergo urgent ORIF Procedure in detail: Patient was brought to the operating room and placed supine on the operative table. She was prepped and draped in standard sterile fashion and a time-out was called to identify proper site, proper procedure and proper surgeon and IV antibiotics per weight were administered. I began by making a curvilinear incision over the anterolateral aspect of the left distal clavicle. Full-thickness flaps were developed and the displaced distal clavicle fracture was identified. I used a tenaculum to reduce the fracture and then placed a 6 hole 12 mm hook plate over the distal clavicle. Combination of locking and nonlocking screws were placed to affix the plate to the medial fracture fragment. Standard AO technique was used. Biplanar fluoroscopy was used to confirm fracture reduction and the location of the plate. I range her shoulder without displacement and felt the fracture was stable and the hardware was in appropriate position. I was unable to get any screws into the lateral fragment. Once I was satisfied with the fracture reduction biplanar fluoroscopic views were obtained again and I closed with absorbable suture and skin glue after copious irrigation. Patient was placed in sterile dressing and a sling extubated brought recovery room stable condition there were no known complications.
--- NOTE | 2021-07-31 09:03 | P.DS_ITS ---
DS: Providers Provider Date of Service: 08/17/21 Date of admission: 07/15/21 13:13 Primary care physician: Burt Juarez MD Consults: 07/15/21 13:13 Consult to Hospitalist Routine Consulting Provider: Hospitalist Reason For Exam: H/P LYMPHOMA, ?ETOH, PREOP CLEARANCE DS: Diagnosis Discharge Diagnosis (1) Closed fracture of left clavicle: Status: Acute DS: Summary Hospital Course Hospital Course: The patient underwent a successful ORIF of the left clavicle, was transferred to PACU and then to the floor to recover. During their stay, their vitals were stable, afebrile at 97.2 . Labs were unremarkable, H/H 8.6/25.8 . POD 1 she received therapy services twice a day. Prior to discharge, their dressing was change, incision clean dry and intact, new dressing applied and the plan was to be discharged home with VNA services Time Spent with Patient Time attestation: Total time spent providing and/or coordinating discharge services: Discharge coordination time: Less than 30 minutes Quality: Safe Use of Opioids Does Pt have an Active Cancer Diagnosis on the Problem List?: No Quality: Stroke Does the patient have a stroke diagnosis?: No Physical Exam Vital Signs: Vital Signs: Last Vital Signs Temp 97.2 F 07/17/21 07:30 Pulse 65 07/17/21 07:30 Resp 19 07/17/21 07:30 BP 112/52 L 07/17/21 07:30 Pulse Ox 99 07/17/21 07:30 O2 Del Method 07/17/21 07:30 O2 Flow Rate 1 07/17/21 03:48 BMI result Body Mass Index 19.9 Const: General: cooperative, healthy appearing and no acute distress Resp: Effort & Inspection: normal respiratory effort and able to speak in complete sentences Cardio: Rate: regular rate Peripheral pulses: Peripheral pulses 2+ throughout GI: Palpation (GI): Soft to palpation Skin: General skin exam: no rashes or lesions noted Extrem: Other: Left calf buckle incision clean dry and intact. No erythema mild swelling. Neurovascularly intact. DS: Data Data Completed and Pending Completed studies during hospitalization [Text1]: Procedures Introduction of Remdesivir Anti-infective into Peripheral Vein, Percutaneous Approach, [employer] 5 (03/10/21) Reposition Left Clavicle with Internal Fixation Device, Open Approach (07/15/21) Discharge Plan Discharge Patient Disposition: Home, Self-Care Discharge Diagnosis: clavicle fx Referrals: Anna Marie Adame PA-C [Physician Vending Machine Assembler] - 2 Weeks (please call orthopedics to schedule 2 week followup [phone]) Discharge Medications: New docusate sodium 100 mg Capsule 100 mg PO BID 7 Days Qty: 14 0RF oxycodone 5 mg Tablet 5 mg PO Q4H PRN (Reason: Pain, Moderate (Pain Scale 4-6) 7 Days Qty: 42 0RF Continued diphenhydramine HCl 25 mg Tablet 25 mg PO DAILY PRN (Reason: Allergy Symptoms) cyanocobalamin (vitamin B-12) 1,000 mcg tablet 1 tab PO DAILY trazodone 100 mg tablet 100 mg PO BEDTIME acyclovir 400 mg tablet 400 mg PO BID albuterol sulfate 90 mcg/actuation HFA aerosol inhaler 1 puff PO Q4H PRN (Reason: Shortness Of Breath) levothyroxine 125 mcg tablet 125 mcg PO DAILY@0600 paroxetine HCl 20 mg tablet 20 mg PO DAILY Discharge Orders: Discharge Order (Routine); Ordered 07/17/21 Ordered By: Anna Marie Adame Diet: regular diet Activity on Discharge: Use Splints or Immobilizers Stand Alone Forms: Patient Portal Discharge page Activity Restrictions/Additional Instructions: Please call to follow up. If you have any other concerns please return to the ED. you should not drive while on morphine should not mix morphine with alcohol. Care Plan Goals: clavicle healing of fracture Health Concerns: None Plan of Treatment: Keep the bandage clean, dry and intact. Sling for comfort, ok to remove for pendulums Do not shower, bathe or apply creams or lotion to incision Follow up with orthopedics in 2 weeks Assessment: stable for discharge. Patient declined home health services or STR Patient Instructions: Clavicle Fracture (ED) Discharge Date/Time: 07/17/21 10:44
== END 2021-07-17 10:44 | disposition home or self-care (01) | DRG 516 ==
LOC: HO.ED 13:03 → HO.EDOVER 13:29 → HO.S3 07-16 15:48
PROVIDERS: Physician Assistant; Admitting Provider Orthopaedic Surgery; Emergency Provider Student in an Organized Health Care Education/Training Program; PCP Internal Medicine Medical Oncology; Visit Provider Orthopaedic Surgery
PROC: 0PSB04Z Reposition Left Clavicle with Internal Fixation Device, Open Approach (ICD-10-PCS; CPT 23515; principal; 2021-07-16 14:00)
DX: S42.032A Displaced fracture of lateral end of left clavicle, initial encounter for closed fracture (principal); C85.90 Non-Hodgkin lymphoma, unspecified, unspecified site; J44.9 Chronic obstructive pulmonary disease, unspecified; W18.30XA Fall on same level, unspecified, initial encounter; F41.9 Anxiety disorder, unspecified; E03.9 Hypothyroidism, unspecified; F17.210 Nicotine dependence, cigarettes, uncomplicated; Z20.822 Contact with and (suspected) exposure to COVID-19; Z71.6 Tobacco abuse counseling; Z79.890 Hormone replacement therapy; Z79.899 Other long term (current) drug therapy
CPT/HCPCS: 23515; 36415; 73030; 80048; 85025; 86850; 86900; 86901; 87635; 93005; 96372; 97165; 99285; C1713; J0690; J1100; J1170; J1642; J1885; J2250; J2370; J2405; J3010

== ENCOUNTER 2021-07-31 07:41 | Outpatient (REF) | payer MEDICARE, SELFPAY ==
--- NOTE | ~2021-07-31 | XR_ITS ---
EXAMINATION: XR CLAVICLE, LEFT CLINICAL INFORMATION: Left clavicle fracture COMPARISON: Previous x-ray most recent 07/15/2021 TECHNIQUE: 2 of the left clavicle. FINDINGS: There is a plate and screws transfixing the left distal clavicle fracture. Hardware appears unchanged from intraoperative from 07/16/2021. There are mild degenerative changes at the acromioclavicular joint. No other fracture is seen. XR/XR clavicle LT IMPRESSION: ORIF of left distal clavicle fracture.
== END 2021-07-31 07:42 | disposition home or self-care (01) ==
LOC: HO.HOSX 07:41
PROVIDERS: Visit Provider Physician Assistant
DX: S42.002A Fracture of unspecified part of left clavicle, initial encounter for closed fracture (principal); M89.8X1 Other specified disorders of bone, shoulder; D64.9 Anemia, unspecified; X58.XXXA Exposure to other specified factors, initial encounter; Y93.9 Activity, unspecified; Y92.9 Unspecified place or not applicable; Y99.9 Unspecified external cause status
CPT/HCPCS: 73000

== ENCOUNTER 2021-08-04 10:09 | Outpatient (REF) | payer MEDICARE, SELFPAY ==
[2021-08-04 11:58] LABS: Hematocrit 32.9 % (37.0-47.0); Hemoglobin 10.9 g/dl (12.0-16.0); Mean Corpuscular HGB Conc 33.1 g/dl (31.0-35.0); Mean Corpuscular Hemoglobin 38.9 pg (27.0-33.0); PLT CLUMP 1; Red Cell Distribution Width 17.4 % (11.0-16.0)
[2021-08-04 11:59] LABS: Mean Corpuscular Volume 117.5 fL (80.0-98.0); WBC ABN SCTR FOR CBC 1
[2021-08-04 12:07] LABS: Alanine Aminotransferase 8 U/L (0-31); Alkaline Phosphatase 115 U/L (39-117); Anion Gap 13 (12-20); Aspartate Amino Transferase 9 U/L (5-31); Bilirubin Total 0.4 mg/dL (0.0-1.0); Blood Urea Nitrogen 8 mg/dL (9-16); Calcium 8.8 mg/dL (8.4-10.2); Carbon Dioxide 26 mmol/L (22-29); Chloride 106 mmol/L (96-108); Estimated Glomerular Filt Rate > 60; Glucose Random 87 mg/dL (60-115); Lactate Dehydrogenase 161 U/L (122-220); Potassium 3.9 mmol/L (3.3-5.1); Sodium 141 mmol/L (135-145); Total Protein 5.2 g/dL (6.5-8.0)
[2021-08-04 12:21] LABS: Band Neutrophils Percent 1 % (3-5); Basophils Percent Manual 2 % (0-2); Eosinophils Percent Manual 2 % (0-4); Lymphocytes Percent Manual 50 % (20-40); Monocytes Percent Manual 13 % (2-11); Neutrophils Percent Manual 32 % (45-73)
[2021-08-04 12:23] LABS: RBC Morphology NOTED
[2021-08-04 12:24] LABS: Macrocytosis 2+ (15-30) /OIF
[2021-08-04 12:25] LABS: Acanthocytes 1+ (0-2) /OIF
[2021-08-04 12:26] LABS: Ovalocytes 1+ (5-14) /OIF
[2021-08-04 12:29] LABS: Schistocytes 1+ (0-2) /OIF
[2021-08-04 12:30] LABS: Basophils Abs Manual 0.1 X10*3/uL (0.0-0.2); Eosinophils Absolute Manual 0.1 X10*3/uL (0.0-0.4); Lymphocytes Absolute Manual 2.4 X10*3/uL (1.2-4.9); Monocytes Absolute Manual 0.6 X10*3/uL (0.1-1.2); Neutrophils Absolute Manual 1.6 X10*3/uL (2.0-8.3); White Blood Count 4.8 X10*3/uL (4.8-10.8)
[2021-08-04 12:32] LABS: Vitamin B12 580 pg/mL (200-900)
[2021-08-04 12:35] LABS: Erythrocyte Sedimentation Rate 7 MM/HR (0-20)
== END 2021-08-04 10:10 | disposition home or self-care (01) ==
LOC: HO.LAB 10:09
PROVIDERS: PCP Internal Medicine Medical Oncology; Visit Provider Internal Medicine Medical Oncology
DX: C85.10 Unspecified B-cell lymphoma, unspecified site (principal); D53.9 Nutritional anemia, unspecified; E53.8 Deficiency of other specified B group vitamins
CPT/HCPCS: 36415; 80053; 82607; 83615; 85007; 85025; 85027; 85652

== ENCOUNTER 2021-08-28 07:43 | Outpatient (REF) | payer MEDICARE, SELFPAY ==
--- NOTE | ~2021-08-28 | XR_ITS ---
EXAMINATION: XR CLAVICLE, LEFT CLINICAL INFORMATION: Reduction distal left clavicular fracture. Follow-up. COMPARISON: Radiographs left clavicle 07/31/2021, left shoulder 07/15/2021. TECHNIQUE: Two views of the left clavicle. FINDINGS: There is prior open reduction internal fixation distal left clavicular fracture. Hardware is intact. The acromioclavicular alignment is normal. There is no acute fracture or destructive process or osteolysis. Left lung apex is clear. There is old plate and screws overlying lower cervical spine again seen and a right central venous catheter again seen. XR/XR clavicle LT IMPRESSION: -Status post reduction internal fixation distal left clavicular fracture. Hardware intact. -Acromioclavicular alignment normal. -No destructive process or osteolysis.
== END 2021-08-28 07:44 | disposition home or self-care (01) ==
LOC: HO.HOSX 07:43
PROVIDERS: Visit Provider Physician Assistant
DX: M89.8X1 Other specified disorders of bone, shoulder (principal)
CPT/HCPCS: 73000

== ENCOUNTER 2021-09-02 09:52 | Outpatient (REF) | payer MEDICARE, SELFPAY ==
[2021-09-02 10:06] LABS: MANUAL DIFF FLAG NO
[2021-09-02 10:15] LABS: Basophils Absolute Auto 0.1 X10*3/uL (0.0-0.2); Basophils Percent Auto 1.3 % (0-2); Eosinophils Percent Auto 0.2 % (0-4); Hemoglobin 11.5 g/dl (12.0-16.0); Imm Gran Abs Auto 0.01 X10*3/uL (0.00-0.03); Imm Gran Pct Auto 0.2 % (0.0-0.4); Lymphocytes Absolute Auto 2.5 X10*3/uL (1.2-4.9); Lymphocytes Percent Auto 45.6 % (20-40); Mean Corpuscular HGB Conc 33.8 g/dl (31.0-35.0); Mean Corpuscular Hemoglobin 39.9 pg (27.0-33.0); Mean Platelet Volume 12.8 fL (9.4-12.3); Monocytes Absolute Auto 0.8 X10*3/uL (0.1-1.2); Monocytes Percent Auto 14.8 % (2-11); Neutrophils Absolute Auto 2.1 x10*3/uL (2.0-8.3); Neutrophils Percent Auto 37.9 % (45-73); Platelet Count 212 X10*3/uL (160-400); Red Blood Count 2.88 X10*6/uL (4.20-5.50); Red Cell Distribution Width 16.3 % (11.0-16.0); White Blood Count 5.5 X10*3/uL (4.8-10.8)
[2021-09-02 10:20] LABS: Mean Corpuscular Volume 118.1 fL (80.0-98.0)
[2021-09-02 10:47] LABS: Alanine Aminotransferase 13 U/L (0-31); Albumin Level 4.2 g/dL (3.5-5.0); Alkaline Phosphatase 106 U/L (39-117); Anion Gap 12 (12-20); Aspartate Amino Transferase 12 U/L (5-31); Bilirubin Total 0.8 mg/dL (0.0-1.0); Blood Urea Nitrogen 9 mg/dL (9-16); Calcium 9.2 mg/dL (8.4-10.2); Carbon Dioxide 26 mmol/L (22-29); Chloride 106 mmol/L (96-108); Estimated Glomerular Filt Rate 55; Glucose Random 110 mg/dL (60-115); Lactate Dehydrogenase 167 U/L (122-220); Potassium 4.3 mmol/L (3.3-5.1); Sodium 140 mmol/L (135-145); Total Protein 5.5 g/dL (6.5-8.0)
[2021-09-02 10:56] LABS: Erythrocyte Sedimentation Rate 2 MM/HR (0-20)
== END 2021-09-02 09:53 | disposition home or self-care (01) ==
LOC: HO.LAB 09:52
PROVIDERS: PCP Internal Medicine Medical Oncology; Visit Provider Internal Medicine Medical Oncology
DX: C85.10 Unspecified B-cell lymphoma, unspecified site (principal)
CPT/HCPCS: 36415; 80053; 83615; 85025; 85652

== ENCOUNTER 2021-09-16 09:00 | Outpatient (RCR) | payer MEDICARE, SELFPAY ==
[2021-08-19 10:01] VITALS: BP 88/54; PULSE 65
--- NOTE | 2021-08-19 11:17 | MHC.PT.EP ---
[facility] [place] [facility] [place] Office [place] Office [address] Steve Garcia [address] [phone] F: [phone] F: [phone] F: [phone] F: [phone] Physical Therapy Plan of Care Date of Evaluation: Date of Surgery: 07/16/21 Diagnosis: fx of unspecified part of L clavicle Assessment: 71 y/o RHD female s/p L clavicle ORIF 07/16/21 after a fall. She was d/c home without services. She is wearing a sling and compliant with it. Currently restricted from driving and lifting. Currently she reports minimal pain and using R UE for all ADL's. From ortho note I recommend PT for gentle ROm and periscap stabilization. No driving for another 4 weeks. Examination shows limited L shoulder A/PROM, decreased L shoulder strength (not formally tested secondary to post-surgical), impaired postural awareness, and pain. Recommend PT 2x/week for 8 weeks to address impairments, implement HEP, and optimize functional mobility. Frequency and Duration: The patient will be seen 2x/week for 8 weeks Short Term Goals: 4 weeks 1. I with HEP 2. Improve L shoulder flexion to 140 3. Improve L shoulder ER to 50 Residential Goals: 8 weeks 1. I with HEP and self managment of sx 2. Pt will be able to perform self grooming with B UE and pain < 3/10 3. Pt will be able to carry 5-10# grocery bag with pain < 3/10 Treatment Plan: Modalities to reduce pain, spasms and effusion. Manual therapy to restore motion and function. Therapeutic exercise to improve strength and flexibility. Neuromuscular re-education for posture and balance. Therapeutic activities to return to functional activities of daily living. Electronically signed by: Estefania Alexander PT Please sign and return to therapist. Thank you for your referral.
--- NOTE | 2021-10-29 12:10 | MHC.PT.DC ---
[facility] [place] Office [place] Office [place] Office [address] Steve Garcia [address] [phone] F: [phone] F: [phone] F: [phone] F: [phone] Physical Therapy Discharge Report Diagnosis: fx of unspecified part of L clavicle Date of Surgery: 07/16/21 Date of Evaluation: 08/19/21 Date of Discharge: 10/29/21 Treatments to Date: 6 Cancellations to Date: 0 No Shows to Date: 0 Discharge Status: Improved Function Independent with HEP Patient Elected to Stop Discharge Summary: Pt elected to self d/c reporting she is feeling better and would like to perform HEP at home. At last visit, reviewed importance of PT for progressing strength as she is healing. Electronically signed by: Estefania Alexander PT Please sign and return to therapist. Thank you for your referral.
== END 2021-10-29 12:11 | disposition home or self-care (01) ==
LOC: HO.PT 09:00
PROVIDERS: PCP Internal Medicine Medical Oncology; Visit Provider Physician Assistant
DX: S42.002A Fracture of unspecified part of left clavicle, initial encounter for closed fracture (principal)
CPT/HCPCS: 97110; 97161

== ENCOUNTER 2021-09-28 07:47 | Outpatient (REF) | payer MEDICARE, SELFPAY ==
--- NOTE | ~2021-09-28 | XR_ITS ---
EXAMINATION: XR CLAVICLE, LEFT CLINICAL INFORMATION: Follow-up status-post ORIF of distal left clavicular fracture. COMPARISON: Prior radiographs, most recently 08/28/2021. TECHNIQUE: Straight AP and cephalad angulated AP views of the left clavicle. FINDINGS: There is well-maintained alignment status-post ORIF of a distal left clavicular fracture. The fracture line is not identified. Orthopedic hardware appears intact without failure or loosening. The glenohumeral and coracoclavicular intervals are normal. No foreign body is seen. There is no left pneumothorax. XR/XR clavicle LT IMPRESSION: There is well-maintained alignment status-post ORIF of a distal left clavicular fracture, without hardware failure or loosening noted. The fracture line is not visualized with certainty.
== END 2021-09-28 07:48 | disposition home or self-care (01) ==
LOC: HO.HOSX 07:47
PROVIDERS: Visit Provider Physician Assistant
DX: M89.8X1 Other specified disorders of bone, shoulder (principal); C85.10 Unspecified B-cell lymphoma, unspecified site; E53.8 Deficiency of other specified B group vitamins
CPT/HCPCS: 36415; 73000; 80053; 82607; 82746; 83615; 85025

== ENCOUNTER → 2021-09-28 10:35 | Outpatient (BNVA) | payer MEDICARE, SELFPAY | PROVIDERS: PCP Internal Medicine Medical Oncology; Visit Provider Physician Assistant | DX: M89.8X1 Other specified disorders of bone, shoulder (principal); S42.035D Nondisplaced fracture of lateral end of left clavicle, subsequent encounter for fracture with routine healing; X58.XXXD Exposure to other specified factors, subsequent encounter | CPT/HCPCS: 99212 ==

== ENCOUNTER 2021-09-28 11:13 | Outpatient (REF) | payer MEDICARE, SELFPAY ==
[2021-09-28 12:09] LABS: Hematocrit 32.4 % (37.0-47.0); Hemoglobin 11.2 g/dl (12.0-16.0); Mean Corpuscular HGB Conc 34.6 g/dl (31.0-35.0); Mean Corpuscular Hemoglobin 40.4 pg (27.0-33.0); NRBC Pct Auto 0.3 /100WBC (0.0-0.2); Red Blood Count 2.77 X10*6/uL (4.20-5.50); SCAN SMEAR FLAG 1
[2021-09-28 12:11] LABS: Basophils Absolute Auto 0.1 X10*3/uL (0.0-0.2); Basophils Percent Auto 1.5 % (0-2); Eosinophils Percent Auto 0.2 % (0-4); Imm Gran Abs Auto 0.02 X10*3/uL (0.00-0.03); Imm Gran Pct Auto 0.3 % (0.0-0.4); Lymphocytes Absolute Auto 3.3 X10*3/uL (1.2-4.9); Lymphocytes Percent Auto 54.1 % (20-40); MANUAL DIFF FLAG SCAN; Mean Platelet Volume 13.2 fL (9.4-12.3); Monocytes Percent Auto 15.8 % (2-11); Neutrophils Absolute Auto 1.7 x10*3/uL (2.0-8.3); Neutrophils Percent Auto 28.1 % (45-73); PLT CLUMP 1; Red Cell Distribution Width 15.5 % (11.0-16.0)
[2021-09-28 12:18] LABS: PLT ABN DIST 1; White Blood Count 6.1 X10*3/uL (4.8-10.8)
[2021-09-28 12:36] LABS: Alanine Aminotransferase 16 U/L (0-31); Albumin Level 4.1 g/dL (3.5-5.0); Alkaline Phosphatase 102 U/L (39-117); Anion Gap 15 (12-20); Aspartate Amino Transferase 16 U/L (5-31); Bilirubin Total 0.7 mg/dL (0.0-1.0); Blood Urea Nitrogen 9 mg/dL (9-16); Calcium 8.9 mg/dL (8.4-10.2); Carbon Dioxide 23 mmol/L (22-29); Chloride 103 mmol/L (96-108); Estimated Glomerular Filt Rate > 60; Glucose Random 103 mg/dL (60-115); Lactate Dehydrogenase 166 U/L (122-220); Platelet Count 197 X10*3/uL (160-400); Potassium 4.3 mmol/L (3.3-5.1); Sodium 137 mmol/L (135-145); Total Protein 5.4 g/dL (6.5-8.0)
[2021-09-28 12:39] LABS: SLIDE REVIEW VERIFIED
[2021-09-28 13:11] LABS: Folate 12.9 ng/mL (> or = 4.0); Vitamin B12 504 pg/mL (200-900)
== END 2021-09-28 11:14 | disposition home or self-care (01) ==
LOC: HO.LAB 11:13
PROVIDERS: PCP Internal Medicine Medical Oncology; Visit Provider Internal Medicine Medical Oncology
DX: Z13.89 Encounter for screening for other disorder (principal)
CPT/HCPCS: 36415; 80053; 82607; 82746; 83615; 85025

== ENCOUNTER 2021-10-28 09:34 | Outpatient (REF) | payer MEDICARE, SELFPAY ==
[2021-10-28 10:26] LABS: Hematocrit 35.9 % (37.0-47.0); Hemoglobin 12.2 g/dl (12.0-16.0); Mean Corpuscular Hemoglobin 40.5 pg (27.0-33.0); NRBC Pct Auto 0.6 /100WBC (0.0-0.2); PLT CLUMP 1; Red Blood Count 3.01 X10*6/uL (4.20-5.50); Red Cell Distribution Width 15.6 % (11.0-16.0)
[2021-10-28 10:27] LABS: Mean Corpuscular Volume 119.3 fL (80.0-98.0); WBC ABN SCTR FOR CBC 1
[2021-10-28 10:38] LABS: Estimated Average Glucose 68 mg/dL
[2021-10-28 10:49] LABS: Alanine Aminotransferase 16 U/L (0-31); Albumin Level 4.1 g/dL (3.5-5.0); Alkaline Phosphatase 101 U/L (39-117); Anion Gap 19 (12-20); Aspartate Amino Transferase 20 U/L (5-31); Bilirubin Total 0.7 mg/dL (0.0-1.0); Blood Urea Nitrogen 15 mg/dL (9-16); Carbon Dioxide 20 mmol/L (22-29); Chloride 108 mmol/L (96-108); Estimated Glomerular Filt Rate 53; Glucose Fasting 111 mg/dL (60-99); Lactate Dehydrogenase 209 U/L (122-220); Potassium 4.8 mmol/L (3.3-5.1); Sodium 142 mmol/L (135-145); Total Protein 5.6 g/dL (6.5-8.0)
[2021-10-28 11:00] LABS: Atypical Lymphs Percent Manual 1 % (0-6); Band Neutrophils Percent 1 % (3-5); Basophils Percent Manual 2 % (0-2); Lymphocytes Percent Manual 69 % (20-40); Monocytes Percent Manual 11 % (2-11); Neutrophils Percent Manual 16 % (45-73); Nucleated Red Blood Cells 1 /100WBC (0-0)
[2021-10-28 11:02] LABS: Macrocytosis 1+ (5-14) /OIF; RBC Morphology NOTED
[2021-10-28 11:03] LABS: Polychromasia 1+ (0-2) /OIF
[2021-10-28 11:05] LABS: Schistocytes 1+ (0-2) /OIF
[2021-10-28 11:11] LABS: Atypical Lymph Absolute Manual 0.1 x10*3/uL; Basophils Abs Manual 0.1 X10*3/uL (0.0-0.2); Monocytes Absolute Manual 0.8 X10*3/uL (0.1-1.2); Neutrophils Absolute Manual 1.2 X10*3/uL (2.0-8.3); White Blood Count 7.3 X10*3/uL (4.8-10.8)
[2021-10-28 12:22] LABS: Erythrocyte Sedimentation Rate 2 MM/HR (0-20)
== END 2021-10-28 09:35 | disposition home or self-care (01) ==
LOC: HO.LAB 09:34
PROVIDERS: PCP Internal Medicine Medical Oncology; Visit Provider Internal Medicine Medical Oncology
DX: C85.10 Unspecified B-cell lymphoma, unspecified site (principal); E78.5 Hyperlipidemia, unspecified; E11.9 Type 2 diabetes mellitus without complications
CPT/HCPCS: 36415; 80053; 83036; 83615; 85007; 85025; 85027; 85652

== ENCOUNTER 2021-11-23 08:07 | Outpatient (REF) | payer MEDICARE, SELFPAY ==
--- NOTE | ~2021-11-23 | XR_ITS ---
EXAMINATION: XR CLAVICLE, LEFT CLINICAL INFORMATION: Pain left shoulder COMPARISON: None TECHNIQUE: Two views of the left clavicle. FINDINGS: The left clavicular fracture stabilized with metallic plate and screws the AC joint is alignment. Visualized glenohumeral joint space is normal. The soft tissues are normal. XR/XR clavicle LT IMPRESSION: Well aligned distal left clavicular fracture status post ORIF no hardware failure. The AC joint and the glenohumeral joint space is maintained normal. No change from 09/28/2021
== END 2021-11-23 08:08 | disposition home or self-care (01) ==
LOC: HO.HOSX 08:07
PROVIDERS: Visit Provider Physician Assistant
DX: S42.002D Fracture of unspecified part of left clavicle, subsequent encounter for fracture with routine healing (principal); M89.8X1 Other specified disorders of bone, shoulder
CPT/HCPCS: 73000; 99212

== ENCOUNTER 2021-12-25 11:33 | Outpatient (REF) | payer MEDICARE, SELFPAY ==
[2021-12-25 12:33] LABS: Hematocrit 33.4 % (37.0-47.0); Hemoglobin 11.6 g/dl (12.0-16.0); Mean Corpuscular HGB Conc 34.7 g/dl (31.0-35.0); Mean Corpuscular Hemoglobin 40.4 pg (27.0-33.0); Mean Corpuscular Volume 116.4 fL (80.0-98.0); PLT CLUMP 1; Red Blood Count 2.87 X10*6/uL (4.20-5.50); Red Cell Distribution Width 14.5 % (11.0-16.0); WBC ABN SCTR FOR CBC 1
[2021-12-25 12:45] LABS: Atypical Lymphs Percent Manual 6 % (0-6); Basophils Percent Manual 3 % (0-2); Eosinophils Percent Manual 1 % (0-4); Lymphocytes Percent Manual 54 % (20-40); Monocytes Percent Manual 15 % (2-11); Neutrophils Percent Manual 21 % (45-73)
[2021-12-25 12:46] LABS: Band Neutrophils Percent 0 % (3-5)
[2021-12-25 12:48] LABS: Large Platelet PRESENT; Macrocytosis 2+ (15-30) /OIF; Platelet Estimate NORMAL (NORMAL); Platelet Morphology Comment NOTED; RBC Morphology NOTED
[2021-12-25 12:49] LABS: Schistocytes 1+ (0-2) /OIF
[2021-12-25 12:51] LABS: Atypical Lymph Absolute Manual 0.3 x10*3/uL; Basophils Abs Manual 0.2 X10*3/uL (0.0-0.2); Eosinophils Absolute Manual 0.1 X10*3/uL (0.0-0.4); Lymphocytes Absolute Manual 3.1 X10*3/uL (1.2-4.9); Monocytes Absolute Manual 0.9 X10*3/uL (0.1-1.2); Neutrophils Absolute Manual 1.2 X10*3/uL (2.0-8.3); Platelet Count 186 X10*3/uL (160-400); White Blood Count 5.7 X10*3/uL (4.8-10.8)
[2021-12-25 12:54] LABS: Erythrocyte Sedimentation Rate 2 MM/HR (0-20)
[2021-12-25 14:35] LABS: Alanine Aminotransferase 50 U/L (0-31); Alkaline Phosphatase 122 U/L (39-117); Anion Gap 16 (12-20); Aspartate Amino Transferase 17 U/L (5-31); Bilirubin Total 0.4 mg/dL (0.0-1.0); Blood Urea Nitrogen 10 mg/dL (9-16); Calcium 9.1 mg/dL (8.4-10.2); Carbon Dioxide 26 mmol/L (22-29); Chloride 105 mmol/L (96-108); Estimated Glomerular Filt Rate 45; Glucose Random 119 mg/dL (60-115); Lactate Dehydrogenase 174 U/L (122-220); Potassium 4.6 mmol/L (3.3-5.1); Sodium 142 mmol/L (135-145); Total Protein 5.4 g/dL (6.5-8.0)
== END 2021-12-25 11:34 | disposition home or self-care (01) ==
LOC: HO.LAB 11:33
PROVIDERS: PCP Internal Medicine Medical Oncology; Visit Provider Internal Medicine Medical Oncology
DX: C85.10 Unspecified B-cell lymphoma, unspecified site (principal); E11.9 Type 2 diabetes mellitus without complications; E78.5 Hyperlipidemia, unspecified
CPT/HCPCS: 36415; 80053; 83615; 85007; 85025; 85027; 85652

== ENCOUNTER 2022-02-12 08:29 | Outpatient (REF) | payer MEDICARE, SELFPAY ==
--- NOTE | ~2022-02-12 | MM_ITS ---
EXAMINATION: MM SCREENING DIGITAL BREAST TOMOSYNTHESIS, BILATERAL CLINICAL INFORMATION: Screening. Asymptomatic. The lifetime risk of breast cancer based on the Tyrer-Cuzick Model is 2.1%. COMPARISON: Mammography: September 23, 2020 and studies dating back to October 22, 2015 TECHNIQUE: Digital breast tomosynthesis is performed in both the craniocaudal and mediolateral oblique views along with computer-aided detection (CAD). Synthesized 2D images are generated from the tomosynthesis. FINDINGS: The breasts are extremely dense, which lowers the sensitivity of mammography (ACR BI-RADS breast composition Category d). There are no significant masses, abnormal calcifications, or other abnormalities. MM/MM tomosynthesis screening BI IMPRESSION: No significant changes from prior exam. ASSESSMENT: BI-RADS 1: Negative RECOMMENDATION: Routine annual mammography screening. This patient's information was entered into a reminder system with a target due date for their next mammogram.
== END 2022-02-12 08:30 | disposition home or self-care (01) ==
LOC: HO.MAMMO 08:29
PROVIDERS: PCP Internal Medicine Medical Oncology; Visit Provider Internal Medicine Medical Oncology
DX: Z12.31 Encounter for screening mammogram for malignant neoplasm of breast (principal)
CPT/HCPCS: 77063; 77067

== ENCOUNTER 2022-02-18 09:52 | Outpatient (REF) | payer MEDICARE, SELFPAY ==
[2022-02-18 10:35] LABS: NRBC Pct Auto 0.2 /100WBC (0.0-0.2)
[2022-02-18 10:37] LABS: Hematocrit 33.6 % (37.0-47.0); Hemoglobin 11.6 g/dl (12.0-16.0); Mean Corpuscular HGB Conc 34.5 g/dl (31.0-35.0); Mean Corpuscular Hemoglobin 40.8 pg (27.0-33.0); PLT CLUMP 1; Red Blood Count 2.84 X10*6/uL (4.20-5.50); Red Cell Distribution Width 16.4 % (11.0-16.0)
[2022-02-18 10:41] LABS: Mean Corpuscular Volume 118.3 fL (80.0-98.0); PLT ABN DIST 1; WBC ABN SCTR FOR CBC 1
[2022-02-18 10:57] LABS: Alanine Aminotransferase 11 U/L (0-31); Albumin Level 4.1 g/dL (3.5-5.0); Alkaline Phosphatase 103 U/L (39-117); Anion Gap 12 (12-20); Aspartate Amino Transferase 13 U/L (5-31); Bilirubin Total 0.8 mg/dL (0.0-1.0); Blood Urea Nitrogen 12 mg/dL (9-16); Calcium 9.4 mg/dL (8.4-10.2); Carbon Dioxide 28 mmol/L (22-29); Chloride 109 mmol/L (96-108); Cholesterol 168 mg/dL; Estimated Glomerular Filt Rate 39; Glucose Fasting 103 mg/dL (60-99); HDL Cholesterol 56 mg/dL; LDL Cholesterol Calculated 83 mg/dl; Lactate Dehydrogenase 172 U/L (122-220); Potassium 4.5 mmol/L (3.3-5.1); Sodium 144 mmol/L (135-145); Total Protein 5.5 g/dL (6.5-8.0); Triglycerides 145 mg/dL
[2022-02-18 11:06] LABS: Erythrocyte Sedimentation Rate 3 MM/HR (0-20)
[2022-02-18 11:42] LABS: Band Neutrophils Percent 0 % (3-5); Basophils Percent Manual 1 % (0-2); Eosinophils Percent Manual 2 % (0-4); Lymphocytes Percent Manual 73 % (20-40); Monocytes Percent Manual 12 % (2-11); Neutrophils Percent Manual 12 % (45-73)
[2022-02-18 11:43] LABS: RBC Morphology NOTED
[2022-02-18 11:46] LABS: Macrocytosis 3+ (>30) /OIF; Schistocytes 1+ (0-2) /OIF
[2022-02-18 11:47] LABS: Target Cells 1+ (5-14) /OIF
[2022-02-18 11:48] LABS: Hypochromasia 2+ (15-30) /OIF; Polychromasia 1+ (0-2) /OIF; Smudge Cells PRESENT; Tear Drop Cells 1+ (0-2) /OIF
[2022-02-18 11:49] LABS: Platelet Estimate NORMAL (NORMAL); Platelet Morphology Comment NORMAL
[2022-02-18 12:52] LABS: Basophils Abs Manual 0.1 X10*3/uL (0.0-0.2); Eosinophils Absolute Manual 0.2 X10*3/uL (0.0-0.4); Platelet Count 302 X10*3/uL (160-400); White Blood Count 8.2 X10*3/uL (4.8-10.8)
[2022-02-20 13:54] LABS: Beta-2 Microglobulin, Serum 3.21 mg/L (< OR = 2.51)
== END 2022-02-18 09:53 | disposition home or self-care (01) ==
LOC: HO.LAB 09:52
PROVIDERS: PCP Internal Medicine Medical Oncology; Visit Provider Internal Medicine Medical Oncology
DX: C85.10 Unspecified B-cell lymphoma, unspecified site (principal); E11.9 Type 2 diabetes mellitus without complications; I10 Essential (primary) hypertension; K21.9 Gastro-esophageal reflux disease without esophagitis; E78.5 Hyperlipidemia, unspecified
CPT/HCPCS: 36415; 80053; 80061; 82232; 83615; 85007; 85027; 85652

== ENCOUNTER 2022-03-01 16:19 | Outpatient (REF) | payer MEDICARE, SELFPAY ==
--- NOTE | ~2022-03-01 | XR_ITS ---
EXAMINATION: XR CLAVICLE, LEFT CLINICAL INFORMATION: Left shoulder pain COMPARISON: Left clavicle 11/23/2021 TECHNIQUE: Two views of the left clavicle. FINDINGS: Left clavicular fracture stabilized with metallic plate and screws at the AC joint alignment. It is stable compared to previous study 11/23/2021 no additional bony deformity seen involving left clavicle.. XR/XR clavicle LT IMPRESSION: ORIF left clavicular fracture with metallic plate and screws in satisfactory alignment. No additional bony deformity seen.
== END 2022-03-01 16:20 | disposition home or self-care (01) ==
LOC: HO.HOSX 16:19
PROVIDERS: Visit Provider Physician Assistant
DX: M89.8X1 Other specified disorders of bone, shoulder (principal); Z96.9 Presence of functional implant, unspecified
CPT/HCPCS: 73000; 99212

== ENCOUNTER 2022-03-17 10:35 | Outpatient (REF) | payer MEDICARE, SELFPAY ==
[2022-03-17 10:50] LABS: MANUAL DIFF FLAG NO
[2022-03-17 11:39] LABS: Basophils Absolute Auto 0.1 X10*3/uL (0.0-0.2); Basophils Percent Auto 1.8 % (0-2); Eosinophils Percent Auto 0.6 % (0-4); Hematocrit 32.5 % (37.0-47.0); Hemoglobin 11.4 g/dl (12.0-16.0); Imm Gran Abs Auto 0.03 X10*3/uL (0.00-0.03); Imm Gran Pct Auto 0.5 % (0.0-0.4); Lymphocytes Absolute Auto 3.1 X10*3/uL (1.2-4.9); Lymphocytes Percent Auto 48.2 % (20-40); Mean Corpuscular HGB Conc 35.1 g/dl (31.0-35.0); Mean Corpuscular Hemoglobin 41.5 pg (27.0-33.0); Mean Corpuscular Volume 118.2 fL (80.0-98.0); Monocytes Absolute Auto 1.3 X10*3/uL (0.1-1.2); Monocytes Percent Auto 19.9 % (2-11); NRBC Pct Auto 0.5 /100WBC (0.0-0.2); Neutrophils Absolute Auto 1.9 x10*3/uL (2.0-8.3); Platelet Count 300 X10*3/uL (160-400); Red Blood Count 2.75 X10*6/uL (4.20-5.50); Red Cell Distribution Width 15.4 % (11.0-16.0); White Blood Count 6.5 X10*3/uL (4.8-10.8)
[2022-03-17 12:30] LABS: Alanine Aminotransferase 12 U/L (0-31); Albumin Level 4.2 g/dL (3.5-5.0); Alkaline Phosphatase 110 U/L (39-117); Anion Gap 17 (12-20); Aspartate Amino Transferase 14 U/L (5-31); Bilirubin Total 0.7 mg/dL (0.0-1.0); Blood Urea Nitrogen 13 mg/dL (9-16); Calcium 9.1 mg/dL (8.4-10.2); Carbon Dioxide 23 mmol/L (22-29); Chloride 104 mmol/L (96-108); Estimated Glomerular Filt Rate 44; Glucose Random 115 mg/dL (60-115); Lactate Dehydrogenase 188 U/L (122-220); Potassium 4.3 mmol/L (3.3-5.1); Sodium 140 mmol/L (135-145); Total Protein 5.7 g/dL (6.5-8.0)
[2022-03-17 12:31] LABS: Hemoglobin A1c % < 4.0 %
[2022-03-17 12:45] LABS: Free T4 (Free Thyroxine) 1.38 ng/dL (0.71-1.85); Thyroid Stimulating Hormone 0.02 uIU/mL (0.32-4.0)
[2022-03-17 13:46] LABS: Creatinine Urine 32.03 mg/dL; Microalbumin Urine < 5.0 mg/L
[2022-03-19 14:13] LABS: Beta-2 Microglobulin, Serum 2.94 mg/L (< OR = 2.51)
== END 2022-03-17 10:36 | disposition home or self-care (01) ==
LOC: HO.LAB 10:35
PROVIDERS: PCP Internal Medicine Medical Oncology; Visit Provider Internal Medicine Medical Oncology
DX: C85.10 Unspecified B-cell lymphoma, unspecified site (principal); D53.9 Nutritional anemia, unspecified; E11.9 Type 2 diabetes mellitus without complications; E03.9 Hypothyroidism, unspecified
CPT/HCPCS: 36415; 80053; 82043; 82232; 83036; 83615; 84439; 84443; 85025; 88184; 88185

== ENCOUNTER 2022-03-30 11:42 | Day surgery (SDC) | payer MEDICARE, SELFPAY ==
[2022-03-30] VITALS (7 sets, daily range): BP systolic 108–133; BP diastolic 45–64; PULSE 74–93; RESP 14–18; TEMP 36.6–36.9; O2SAT 96–100; BMI 21.2
--- NOTE | 2022-03-30 12:45 | P.CONAN_ITS ---
HPI - Anesthesia Eval Consult details Narrative: 72 F for left clavicle hardware removal PMFSH Active Problems Active Problems: All Active Problems (Updated 03/01/22 @ 08:56 by Flavio Pepper) Retained orthopedic hardware (Acute) Fracture of clavicle with routine healing (Acute) Anemia (Acute) Closed fracture of left clavicle (Acute) Syncope (Acute) Colitis (Acute) COVID-19 (Acute) History of back surgery (Acute) History of cataract surgery (Acute) H/O neck surgery (Acute) GERD (gastroesophageal reflux disease) (Acute) Hyperlipidemia (Acute) Non-Hodgkin lymphoma in remission (Acute) Hypothyroidism (Acute) Depression (Acute) Anxiety (Acute) History of salpingo-oophorectomy (Acute) H/O: hysterectomy (Acute) PAD (peripheral artery disease) (Acute) Past Medical History Medical History Anxiety COPD with asthma Depression Hypothyroidism Non-Hodgkin lymphoma in remission Functional capacity: uses cane/walker Family History Family History Father CAD (coronary artery disease) Family history of problems with anesthesia: No Surgical History Surgical History H/O: hysterectomy History of salpingo-oophorectomy S/P angiogram of extremity (02/13/20) History of Problems with Anesthesia: No Social History Social History Household Members: None Housing: Apartment Do you presently have visiting nurse or other home services: No Patient Tobacco Use Status: Current everyday Tobacco user Tobacco use type: Cigarette Cigarette Packs Per Day: 1 Cigarettes Per Day: 20 Years Smoked: 40 Date Education Initiated: 03/30/22 Second Hand Smoke Exposure: Yes Are you DNR?: No Advance Directives: Yes Advance Directives on File: Yes Advance Directives Date on File: 03/11/21 service: No Current occupational status: retired Meds Allergies Allergy/AdvReac Type Severity Reaction Status Date / Time adhesive tape Allergy Unknown RASH Verified 03/01/22 08:39 bacitracin [Bacitracin] Allergy Unknown RASH Verified 03/01/22 08:39 Home Medications Medication Instructions Recorded Confirmed Last Taken Type acyclovir 400 mg tablet 400 mg PO BID 01/31/20 07/15/21 07/15/21 History albuterol sulfate 90 mcg/actuation 1 puff PO Q4H PRN Shortness Of 01/31/20 07/15/21 03/09/21 History aerosol inhaler Breath levothyroxine 125 mcg tablet 125 mcg PO DAILY@0600 01/31/20 07/15/21 07/15/21 History paroxetine HCl 20 mg tablet 20 mg PO DAILY 01/31/20 07/15/21 07/15/21 History trazodone 100 mg tablet 100 mg PO BEDTIME 01/31/20 07/15/21 07/14/21 History diphenhydramine HCl 25 mg tablet 25 mg PO DAILY PRN Allergy Symptoms 03/10/21 07/15/21 Unknown History cyanocobalamin (vitamin B-12) 1 tab PO DAILY 07/15/21 07/15/21 07/15/21 History 1,000 mcg tablet lorazepam 0.5 mg tablet 0.5 mg PO DAILY PRN anxiety 03/01/22 Unknown History Exam Exam Date and Time: March 30, 2022 1245 Height,Weight and Vital Signs: Height 5 ft 5 in Weight 58.06 kg Last Vital Signs Temp 97.8 F 03/30/22 12:25 Pulse 83 03/30/22 12:25 Resp 18 03/30/22 12:25 BP 109/45 L 03/30/22 12:25 Pulse Ox 96 03/30/22 12:25 O2 Del Method 03/30/22 12:25 Airway Mallampati Class: III TM Dist: >3cm Denture: Upper Loose/Missing/Broken Teeth: Yes Heart: S1,S2 Lungs: diminished breath sounds b/l Assessment and Plan Assessment Anesthesia Assessment: Anesthesia Plan Discussed and Chart Reviewed Final Anesthetic Review Family History of Problems with Anesthesia: No History of Problems with Anesthesia: No NPO: Yes ASA Class: III Final Preanesthetic Review: Meds/Allgs Chart Reviewed Patient Risk: Intermediate Procedure Risk: Intermediate Anesthetic Plan Anesthetic Plan: GA Disposition: Standard PACU
--- NOTE | 2022-03-30 12:49 | MHC.SHP ---
Pre-Procedural Eval Section A Date of Service: 03/30/22 The patient is an INPATIENT: No Changes since office visit: No Cold of Flu in the past 2 weeks, No New Medical Problems, No Changes in Medication and No Patient answered all questions The History & Physical has been completed within 30 days and I have reviewed it.: Yes Section B Chief Complaint: Presence of functional implant, unspecified Allergies: Allergies Allergy/AdvReac Type Severity Reaction Status Date / Time adhesive tape Allergy Unknown RASH Verified 03/01/22 08:39 bacitracin [Bacitracin] Allergy Unknown RASH Verified 03/01/22 08:39 Plan I have reviewed the history and physical and performed a pertinent physical examination on my patient. No changes have occurred unless specified. Time Spent With Patient Time: Total time managing care of this patient today ____ minutes.
[2022-03-30] MEDS: Lactated Ringers 1,000 ML 50 ML IVCONT (12:54)
--- NOTE | 2022-03-30 14:22 | PM.OP ---
Brief Operative Note Date of Service: 03/30/22 Pre-op diagnosis: Retained orthopaedic hardware left clavicle Post-op diagnosis: same Procedure: Removal of hardware left clavicle Surgeon: Adolph Lazar MD Anesthesia: GETA and local Was an Vat House Supervisor used for this Procedure?: Yes Vat House Supervisor: Zahra Zelaya Estimated blood loss (mL): 20 IV fluids (mL): 400 Pathology: none sent Condition: stable Disposition: PACU
--- NOTE | 2022-03-30 14:24 | W.PM.OPN ---
Operative Note Operative Note Date of Service: 03/30/22 Narrative: Date of Service: 03/30/22 Pre-op diagnosis: Retained orthopaedic hardware left clavicle Post-op diagnosis: same Procedure: Removal of hardware left clavicle Surgeon: Adolph Lazar MD Anesthesia: GETA and local Was an Visual Basic Programmer used for this Procedure?: Yes Visual Basic Programmer: Zahra Zelaya Estimated blood loss (mL): 20 IV fluids (mL): 400 Pathology: none sent Condition: stable Disposition: PACU Procedure in detail: Patient was brought to the operating room and placed in a modified beach chair position on the surgical table. She was prepped and draped in standard sterile fashion and a time out was called to identify proper site, proper procedure and IV antibiotics per weight were administered. I began by injecting 8 ml of 1/4 marcaine into the area and then made an incision over the prior incision and created full thickness skin flaps down to the plate. 5 screws were removed with difficulty and then the plate was removed. The area was irrigated and then the skin was closed with 3.0 Vicryl and then a running 3.0 Prolene , skin glue, steri strips and a sterile dressing. An additional 10 ml of Marcaine was injected into the area. Patient was then extubated and brought to the recovery room in stable condition. There were no known complications.
== END 2022-03-30 15:30 | disposition home or self-care (01) ==
PROVIDERS: PCP Internal Medicine Medical Oncology; Visit Provider Orthopaedic Surgery
PROC: (CPT 20680; principal; 2022-03-30 14:00)
DX: T84.84XA Pain due to internal orthopedic prosthetic devices, implants and grafts, initial encounter (principal); Z96.9 Presence of functional implant, unspecified; Y79.8 Miscellaneous orthopedic devices associated with adverse incidents, not elsewhere classified; Y92.9 Unspecified place or not applicable; M25.512 Pain in left shoulder; J44.9 Chronic obstructive pulmonary disease, unspecified; C85.90 Non-Hodgkin lymphoma, unspecified, unspecified site; E03.9 Hypothyroidism, unspecified; Z91.040 Latex allergy status; Z88.1 Allergy status to other antibiotic agents; F17.210 Nicotine dependence, cigarettes, uncomplicated
CPT/HCPCS: 20680; J0690; J2405; J2795; J3010

== ENCOUNTER → 2022-04-05 11:01 | Outpatient (BNVA) | payer MEDICARE, SELFPAY | PROVIDERS: PCP Internal Medicine Medical Oncology; Visit Provider Physician Assistant | DX: Z13.89 Encounter for screening for other disorder (principal) | CPT/HCPCS: 99212 ==

== ENCOUNTER 2022-04-14 11:04 | Outpatient (REF) | payer MEDICARE, SELFPAY ==
[2022-04-14 12:00] LABS: Red Cell Distribution Width 15.7 % (11.0-16.0)
[2022-04-14 12:02] LABS: Hematocrit 31.5 % (37.0-47.0); Hemoglobin 10.8 g/dl (12.0-16.0); Mean Corpuscular HGB Conc 34.3 g/dl (31.0-35.0); Mean Corpuscular Hemoglobin 41.5 pg (27.0-33.0); Mean Corpuscular Volume 121.2 fL (80.0-98.0); NRBC Pct Auto 0.7 /100WBC (0.0-0.2); PLT ABN DIST 1; PLT CLUMP 1; WBC ABN SCTR FOR CBC 1; White Blood Count 5.9 X10*3/uL (4.8-10.8)
[2022-04-14 12:39] LABS: Alanine Aminotransferase 11 U/L (0-31); Albumin Level 4.2 g/dL (3.5-5.0); Alkaline Phosphatase 113 U/L (39-117); Anion Gap 14 (12-20); Aspartate Amino Transferase 15 U/L (5-31); Bilirubin Total 0.7 mg/dL (0.0-1.0); Blood Urea Nitrogen 15 mg/dL (9-16); Calcium 9.1 mg/dL (8.4-10.2); Carbon Dioxide 24 mmol/L (22-29); Chloride 108 mmol/L (96-108); Estimated Glomerular Filt Rate 41; Glucose Random 104 mg/dL (60-115); Potassium 4.1 mmol/L (3.3-5.1); Sodium 142 mmol/L (135-145); Total Protein 5.5 g/dL (6.5-8.0)
[2022-04-14 12:50] LABS: Band Neutrophils Percent 3 % (3-5); Basophils Abs Manual 0.1 X10*3/uL (0.0-0.2); Basophils Percent Manual 2 % (0-2); Lymphocytes Absolute Manual 3.4 X10*3/uL (1.2-4.9); Lymphocytes Percent Manual 57 % (20-40); Monocytes Absolute Manual 0.8 X10*3/uL (0.1-1.2); Monocytes Percent Manual 13 % (2-11); Neutrophils Absolute Manual 1.7 X10*3/uL (2.0-8.3); Neutrophils Percent Manual 25 % (45-73)
[2022-04-14 12:52] LABS: Platelet Estimate NORMAL (NORMAL)
[2022-04-14 12:56] LABS: Macrocytosis 3+ (>30) /OIF; RBC Morphology NOTED
[2022-04-14 12:57] LABS: Acanthocytes 1+ (0-2) /OIF; Large Platelet PRESENT; Ovalocytes 2+ (15-30) /OIF; Platelet Morphology Comment NOTED; Stomatocytes 1+ (5-14) /OIF; Tear Drop Cells 1+ (0-2) /OIF
[2022-04-14 13:49] LABS: Platelet Count 246 X10*3/uL (160-400)
== END 2022-04-14 11:05 | disposition home or self-care (01) ==
LOC: HO.LAB 11:04
PROVIDERS: PCP Internal Medicine Medical Oncology; Visit Provider Internal Medicine Medical Oncology
DX: C85.10 Unspecified B-cell lymphoma, unspecified site (principal)
CPT/HCPCS: 36415; 80053; 85007; 85025; 85027

== ENCOUNTER 2022-04-19 10:58 | Outpatient (REF) | payer MEDICARE, SELFPAY ==
--- NOTE | ~2022-04-19 | XR_ITS ---
EXAMINATION: XR CLAVICLE, LEFT CLINICAL INFORMATION: Pain. Disorders of the shoulder. COMPARISON: None TECHNIQUE: Two views of the left clavicle. FINDINGS: There is mild deformity of the lateral clavicle likely from old fracture and instrumentation. There is mild loss of left AC joint space and periarticular spurring. The soft tissues are normal. XR/XR clavicle LT IMPRESSION: Mild deformity lateral clavicle likely old fracture and instrumentation. Mild degenerative changes left AC joint. No visible acute fracture or dislocation seen.
== END 2022-04-19 10:59 | disposition home or self-care (01) ==
LOC: HO.HOSX 10:58
PROVIDERS: Visit Provider Physician Assistant
DX: S42.002D Fracture of unspecified part of left clavicle, subsequent encounter for fracture with routine healing (principal)
CPT/HCPCS: 73000; 99212

== ENCOUNTER 2022-04-26 12:19 | Outpatient (REF) | payer MEDICARE, SELFPAY ==
--- NOTE | ~2022-04-26 | XR_ITS ---
EXAMINATION: XR CHEST CLINICAL INFORMATION: Dyspnea on exertion. COMPARISON: 03/10/2021 chest radiograph. TECHNIQUE: 2 views of the chest were obtained. FINDINGS: Support devices: Right-sided central venous port with tip terminating in superior vena cava. Anterior cervical fusion plate without abnormality or change. No significant abnormality is noted involving the heart, lungs, mediastinum, bony thorax or soft tissues. XR/XR chest 2V IMPRESSION: No acute cardiopulmonary process.
== END 2022-04-26 12:20 | disposition home or self-care (01) ==
LOC: HO.XRAY 12:19
PROVIDERS: PCP Internal Medicine Medical Oncology; Visit Provider Internal Medicine Medical Oncology
DX: R09.89 Other specified symptoms and signs involving the circulatory and respiratory systems (principal)
CPT/HCPCS: 71046

== ENCOUNTER 2022-05-31 09:10 | Outpatient (REF) | payer MEDICARE, SELFPAY ==
[2022-05-31 09:42] LABS: Basophils Absolute Auto 0.1 X10*3/uL (0.0-0.2); Basophils Percent Auto 1.6 % (0-2); Eosinophils Absolute Auto 0.1 X10*3/uL (0.0-0.4); Eosinophils Percent Auto 0.7 % (0-4); Hematocrit 31.3 % (37.0-47.0); Hemoglobin 10.7 g/dl (12.0-16.0); Imm Gran Abs Auto 0.03 X10*3/uL (0.00-0.03); Imm Gran Pct Auto 0.4 % (0.0-0.4); Immature Retic Fraction 25.2 % (3.0-15.9); Lymphocytes Absolute Auto 4.7 X10*3/uL (1.2-4.9); Lymphocytes Percent Auto 61.9 % (20-40); MANUAL DIFF FLAG SCAN; Mean Corpuscular HGB Conc 34.2 g/dl (31.0-35.0); Mean Corpuscular Hemoglobin 42.5 pg (27.0-33.0); Mean Corpuscular Volume 124.2 fL (80.0-98.0); Mean Platelet Volume 13.5 fL (9.4-12.3); Monocytes Absolute Auto 1.3 X10*3/uL (0.1-1.2); Monocytes Percent Auto 17.1 % (2-11); NRBC Pct Auto 0.8 /100WBC (0.0-0.2); Neutrophils Absolute Auto 1.4 x10*3/uL (2.0-8.3); Neutrophils Percent Auto 18.3 % (45-73); Platelet Count 345 X10*3/uL (160-400); Red Blood Count 2.52 X10*6/uL (4.20-5.50); Red Cell Distribution Width 17.1 % (11.0-16.0); Retic HGB Equivalent 39.9 pg (30.0-35.0); Reticulocyte Percent 2.1 % (0.5-1.8); Reticulocytes Absolute 0.052 X10*6/uL (0.026-0.095); SCAN SMEAR FLAG 1; White Blood Count 7.6 X10*3/uL (4.8-10.8)
[2022-05-31 10:11] LABS: SLIDE REVIEW VERIFIED
[2022-05-31 10:18] LABS: Erythrocyte Sedimentation Rate 7 MM/HR (0-20)
[2022-05-31 10:29] LABS: Alanine Aminotransferase 13 U/L (0-31); Alkaline Phosphatase 131 U/L (39-117); Anion Gap 14 (12-20); Aspartate Amino Transferase 12 U/L (5-31); Bilirubin Total 0.8 mg/dL (0.0-1.0); Blood Urea Nitrogen 13 mg/dL (9-16); Calcium 9.4 mg/dL (8.4-10.2); Carbon Dioxide 27 mmol/L (22-29); Chloride 109 mmol/L (96-108); Cholesterol 188 mg/dL; Estimated Glomerular Filt Rate 41; Glucose Fasting 116 mg/dL (60-99); HDL Cholesterol 60 mg/dL; LDL Cholesterol Calculated 102 mg/dl; Lactate Dehydrogenase 205 U/L (122-220); Potassium 4.5 mmol/L (3.3-5.1); Sodium 145 mmol/L (135-145); Total Protein 5.4 g/dL (6.5-8.0); Triglycerides 132 mg/dL
[2022-05-31 10:50] LABS: Folate 13.6 ng/mL (> or = 4.0); Vitamin B12 1285 pg/mL (200-900)
== END 2022-05-31 09:11 | disposition home or self-care (01) ==
LOC: HO.LAB 09:10
PROVIDERS: PCP Internal Medicine Medical Oncology; Visit Provider Internal Medicine Medical Oncology
DX: E11.9 Type 2 diabetes mellitus without complications (principal); D53.9 Nutritional anemia, unspecified; E53.8 Deficiency of other specified B group vitamins
CPT/HCPCS: 36415; 80053; 80061; 82607; 82746; 83615; 85025; 85045; 85652

== ENCOUNTER 2022-06-04 06:09 | Outpatient (REF) | payer MEDICARE, SELFPAY ==
--- NOTE | ~2022-06-04 | CT_ITS ---
EXAMINATION: CT CHEST WITH CONTRAST CLINICAL INFORMATION: Large cell lymphoma in remission COMPARISON: Previous chest x-ray most recent April [address] T most recent a March 2022 TECHNIQUE: Multidetector volumetric CT imaging of the chest was obtained after the administration of 50 mL of Omnipaque 350 intravenous contrast without immediate adverse reactions. Axial MIP volume rendering provided. Sagittal and coronal reformatted images were obtained. This CT examination was performed using dose optimization techniques as appropriate, variously including the following: *Automated exposure control *Adjustment of mA and/or kV according to patient size (this includes techniques or standardized protocols for targeted exams where dose is matched to indication/reason for exam; i.e. extremities or head) *Use of iterative reconstruction technique DLP: 79 mGy-cm FINDINGS: LUNGS: There is biapical pleural and parenchymal scarring. There is minimal scarring or subsegmental atelectasis at the right lung base in the right middle lobe and anterior basal right lower lobe. The previously identified peripheral groundglass opacities on March 2021 exam are no longer seen. MEDIASTINUM: The mediastinum is normal. No enlarged lymph nodes. Right jugular port with tip projecting over the SVC. Normal heart size. No pericardial effusion. PLEURA: There is no pleural effusion. No pleural mass or thickening. AXILLA: No lymphadenopathy. No chest wall mass. UPPER ABDOMEN: See abdominal and pelvic CT report from the same day OSSEOUS STRUCTURES: Degenerative changes to the spine. Post surgical changes to the lower cervical spine. CT/CT chest w IV con IMPRESSION: Minimal scarring or subsegmental atelectasis at the lung bases. Resolved groundglass opacities March 2021. No adenopathy. Fleischner guidelines were followed.
--- NOTE | ~2022-06-04 | CT_ITS ---
EXAMINATION: CT ABDOMEN AND PELVIS WITH CONTRAST CLINICAL INFORMATION: Large cell lymphoma in remission COMPARISON: Previous CT of the abdomen and pelvis March 2021, and abdominal pelvic ultrasound April 2021 TECHNIQUE: Multidetector volumetric images were obtained from the superior aspect of the liver through the pubic symphysis following administration 85 mL of Omnipaque 350 intravenous contrast. Sagittal and coronal reformatted images were obtained on the technologist's workstation. Oral contrast: Yes This CT examination was performed using dose optimization techniques as appropriate, variously including the following: *Automated exposure control *Adjustment of mA and/or kV according to patient size (this includes techniques or standardized protocols for targeted exams where dose is matched to indication/reason for exam; i.e. extremities or head) *Use of iterative reconstruction technique DLP: 290 mGy-cm FINDINGS: LUNG BASES: The visualized lung bases are unremarkable. LIVER, GALLBLADDER, AND BILIARY TREE: The liver is normal in size, shape, and attenuation. No focal hepatic lesion or biliary ductal dilatation is present. The gallbladder is unremarkable with no evidence of radiopaque gallstones, gallbladder wall thickening, or obvious pericholecystic inflammatory changes. PANCREAS: Unremarkable. SPLEEN: Unremarkable. ADRENAL GLANDS: Unremarkable. KIDNEYS AND URETERS: The kidneys are normal in size, shape, and attenuation. No hydronephrosis, hydroureter, or calculi seen. Right renal cyst measuring 3 cm in the upper pole. This is stable. No imaging follow-up. BLADDER: Unremarkable. GASTROINTESTINAL TRACT: The small and large bowel are unremarkable. The appendix is not seen. No inflammatory changes. Parenchymal water. ABDOMINAL WALL: No significant hernia is appreciated. LYMPH NODES: Soft tissue mass anterior to the left external iliac vessels in the left pelvis measuring 1.3 x 1.7 cm is stable. Appearance is questionable for a lymph node. No other adenopathy. No ascites. VASCULAR: Atherosclerotic disease. No aneurysm. PELVIC VISCERA: The uterus has been removed. Patient gives history of hysterectomy and bilateral recommended. OSSEOUS STRUCTURES: Degenerative changes of the spine. Bilateral L5 pars defect. No spondylolisthesis. Left femoral prosthetic disc. CT/CT abdomen pelvis w IV con IMPRESSION: Stable 1.3 x 1.7 cm soft tissue mass anterior to the left external iliac vessels in the left pelvis question representing a lymph node. Fleischner guidelines were followed.
[2022-06-04] MEDS: iohexoL 350 MG/ML 100 ML INFUS..BTL IV (08:39)
[2022-06-04] MEDS: Barium Sulfate Oral (Vanilla) 450 ML ORAL.SUSP 900 ML PO (08:44)
== END 2022-06-04 06:10 | disposition home or self-care (01) ==
LOC: HO.CT 06:09
PROVIDERS: PCP Internal Medicine Medical Oncology; Visit Provider Internal Medicine Medical Oncology
DX: C85.10 Unspecified B-cell lymphoma, unspecified site (principal)
CPT/HCPCS: 71260; 74177; Q9967

== ENCOUNTER 2022-06-25 06:55 | Day surgery (SDC) | payer MEDICARE, SELFPAY ==
--- NOTE | 2022-06-24 10:44 | P.CONAN_ITS ---
Documented by User: Janet Real NP 06/24/22 10:44 HPI - Anesthesia Eval Consult details Narrative: 72yo F for Colonoscopy PMFSH Active Problems Active Problems: All Active Problems (Updated 04/19/22 @ 09:23 by Kt Tinsley) Fracture of left clavicle (Acute) Retained orthopedic hardware (Acute) Fracture of clavicle with routine healing (Acute) Anemia (Acute) Closed fracture of left clavicle (Acute) Syncope (Acute) Colitis (Acute) COVID-19 (Acute) History of back surgery (Acute) History of cataract surgery (Acute) H/O neck surgery (Acute) GERD (gastroesophageal reflux disease) (Acute) Hyperlipidemia (Acute) Non-Hodgkin lymphoma in remission (Acute) Hypothyroidism (Acute) Depression (Acute) Anxiety (Acute) History of salpingo-oophorectomy (Acute) H/O: hysterectomy (Acute) PAD (peripheral artery disease) (Acute) Past Medical History Medical History Anxiety COPD with asthma Depression Hypothyroidism Non-Hodgkin lymphoma in remission Family History Family History Father CAD (coronary artery disease) Family history of problems with anesthesia: No Surgical History Surgical History H/O: hysterectomy History of salpingo-oophorectomy S/P angiogram of extremity (02/13/20) History of Problems with Anesthesia: No Social History Social History Household Members: None Housing: Apartment Do you presently have visiting nurse or other home services: No Patient Tobacco Use Status: Current everyday Tobacco user Tobacco use type: Cigar Cigarette Packs Per Day: 1 Cigarettes Per Day: 20.0 Years Smoked: 40 Second Hand Smoke Exposure: Yes Use of substances other than those prescribed or required for medical reasons: No Are you DNR?: No Advance Directives: Yes Advance Directives on File: Yes Advance Directives Date on File: 03/11/21 Recently lost weight without trying: No Nutrition Risks: No Nutritional Risk service: No Current occupational status: retired Meds Allergies Allergy/AdvReac Type Severity Reaction Status Date / Time adhesive tape Allergy Unknown RASH Verified 04/19/22 09:06 bacitracin [Bacitracin] Allergy Unknown RASH Verified 04/19/22 09:06 Home Medications Medication Instructions Recorded Confirmed Last Taken Type acyclovir 400 mg tablet 400 mg PO BID 01/31/20 07/15/21 07/15/21 History albuterol sulfate 90 mcg/actuation 1 puff PO Q4H PRN Shortness Of 01/31/20 07/15/21 03/09/21 History aerosol inhaler Breath levothyroxine 125 mcg tablet 125 mcg PO DAILY@0600 01/31/20 07/15/21 07/15/21 History paroxetine HCl 20 mg tablet 20 mg PO DAILY 01/31/20 07/15/21 07/15/21 History trazodone 100 mg tablet 100 mg PO BEDTIME 01/31/20 07/15/21 07/14/21 History diphenhydramine HCl 25 mg tablet 25 mg PO DAILY PRN Allergy Symptoms 03/10/21 07/15/21 Unknown History cyanocobalamin (vitamin B-12) 1 tab PO DAILY 07/15/21 07/15/21 07/15/21 History 1,000 mcg tablet lorazepam 0.5 mg tablet 0.5 mg PO DAILY PRN anxiety 03/01/22 Unknown History Exam Exam Date and Time: June 24, 2022 1044 Pertinent Lab Results Pertinent Lab Results: Laboratory Tests 05/31/22 05/31/22 09:21 09:21 WBC 7.6 Hgb 10.7 L Hct 31.3 L Plt Count 345 D Sodium 145 Potassium 4.5 Chloride 109 H Carbon Dioxide 27 BUN 13 Creatinine 1.27 Assessment and Plan Assessment Anesthesia Assessment: Chart Reviewed Final Anesthetic Review Family History of Problems with Anesthesia: No History of Problems with Anesthesia: No Documented by User: Laurie Sevilla MD 06/25/22 07:24 [facility] Past Medical History Medical History Anxiety COPD with asthma Depression Hypothyroidism Non-Hodgkin lymphoma in remission Family History Family History Father CAD (coronary artery disease) Surgical History Surgical History H/O: hysterectomy History of salpingo-oophorectomy S/P angiogram of extremity (02/13/20) Social History Social History Household Members: None Housing: Apartment Do you presently have visiting nurse or other home services: No Patient Tobacco Use Status: Current everyday Tobacco user Tobacco use type: Cigar Cigarette Packs Per Day: 1 Cigarettes Per Day: 20.0 Years Smoked: 40 Second Hand Smoke Exposure: Yes Use of substances other than those prescribed or required for medical reasons: No Are you DNR?: No Advance Directives: Yes Advance Directives on File: Yes Advance Directives Date on File: 03/11/21 Recently lost weight without trying: No Nutrition Risks: No Nutritional Risk service: No Current occupational status: retired [employer] Allergies Allergy/AdvReac Type Severity Reaction Status Date / Time adhesive tape Allergy Unknown RASH Verified 04/19/22 09:06 bacitracin [Bacitracin] Allergy Unknown RASH Verified 04/19/22 09:06 Home Medications Medication Instructions Recorded Confirmed Last Taken Type acyclovir 400 mg tablet 400 mg PO BID 01/31/20 07/15/21 07/15/21 History albuterol sulfate 90 mcg/actuation 1 puff PO Q4H PRN Shortness Of 01/31/20 07/15/21 03/09/21 History aerosol inhaler Breath levothyroxine 125 mcg tablet 125 mcg PO DAILY@0600 01/31/20 07/15/21 07/15/21 History paroxetine HCl 20 mg tablet 20 mg PO DAILY 01/31/20 07/15/21 07/15/21 History trazodone 100 mg tablet 100 mg PO BEDTIME 01/31/20 07/15/21 07/14/21 History diphenhydramine HCl 25 mg tablet 25 mg PO DAILY PRN Allergy Symptoms 03/10/21 07/15/21 Unknown History cyanocobalamin (vitamin B-12) 1 tab PO DAILY 07/15/21 07/15/21 07/15/21 History 1,000 mcg tablet lorazepam 0.5 mg tablet 0.5 mg PO DAILY PRN anxiety 03/01/22 Unknown History Exam Airway Mallampati Class: II TM Dist: >3cm Neck ROM: Full Denture: Upper Heart: rrr Lungs: cta Assessment and Plan Assessment Anesthesia Assessment: Anesthesia Plan Discussed Final Anesthetic Review NPO: Yes ASA Class: III Final Preanesthetic Review: No Changes in Pt Med Stat, Meds/Allgs Chart Reviewed and Consent Obtained/Reviewed Patient Risk: Intermediate Procedure Risk: Intermediate Anesthetic Plan Anesthetic Plan: MAC: Disposition: Standard PACU
[2022-06-25 07:08] VITALS: BMI 20.3
[2022-06-25 07:12] VITALS: BP 101/54; PULSE 88; RESP 20; TEMP 36.6; O2SAT 99
[2022-06-25] MEDS: Lactated Ringers 1,000 ML 100 ML IVCONT (07:36)
--- NOTE | 2022-06-25 08:00 | MHC.SHP ---
Pre-Procedural Eval Section A Date of Service: 06/25/22 Section B Chief Complaint: screening Details of Present Illness: see h*p no changes Relevant Family History (Specify if Yes): No Relevant Social History: None Present Medications: see Short Stay Collaborative assessment Medical History: No relevant PMH History of Previous Operations: No relevant previous surgery Allergies: Allergies Allergy/AdvReac Type Severity Reaction Status Date / Time adhesive tape Allergy Unknown RASH Verified 04/19/22 09:06 bacitracin [Bacitracin] Allergy Unknown RASH Verified 04/19/22 09:06 Review of Systems Sugical H&P ROS: Negative: Constitution, Cardiovascular, Respiratory, Neurological, Psychiatric, Hem-Onc, Allergic/Immunologic, Gastrointestinal, Genitourinary, Musculoskeletal, Integumentary, Endocrine and Eyes/Ears/Nose/Throat Exam Surgical H&P Exam: Normal: HEENT, Normal: Heart, Normal: Lungs, Normal: Extremities, Normal: Abdomen, Normal: Skin and Normal: Neurological Plan Diagnosis/Plan: Unchanged I have reviewed the history and physical and performed a pertinent physical examination on my patient. No changes have occurred unless specified. Time Spent With Patient Time: Total time managing care of this patient today ____ minutes.
[2022-06-25 08:40] VITALS: BP 87/62; PULSE 78; RESP 16; TEMP 36.4; O2SAT 100
--- NOTE | 2022-06-25 08:45 | P.BOP_ITS ---
Brief Operative Note Date of Service: 06/25/22 Pre-op diagnosis: screening Post-op diagnosis: same Procedure: colonoscopy Surgeon: Phil Kyle Anesthesia: MAC Was an Seed Yeast Operator used for this Procedure?: No Estimated blood loss (mL): 2 Pathology: other Condition: stable Disposition: PACU
[2022-06-25 08:55] VITALS: BP 88/25; PULSE 76; RESP 16; O2SAT 97
[2022-06-25 09:10] VITALS: BP 108/43; PULSE 81; RESP 16; TEMP 36.4; O2SAT 99
--- NOTE | 2022-06-25 10:56 | OP_ITS ---
DATE OF SERVICE: 06/25/2022 SURGEON: Phil Kyle MD INDICATIONS: Colon cancer screening. PREOPERATIVE DIAGNOSIS: POSTOPERATIVE DIAGNOSIS: PROCEDURE PERFORMED: Colonoscopy to the terminal ileum with biopsy. ESTIMATED BLOOD LOSS: COMPLICATIONS: ANESTHESIA: Monitored anesthesia care. ASSISTANTS: SPECIMENS: DESCRIPTION OF PROCEDURE: A history and physical was performed. The risks and benefits of the procedure were explained to the patient. Informed consent was obtained. The patient was placed in the left lateral decubitus position. A digital rectal exam was performed and was found to be normal. The Olympus pediatric video colonoscope was introduced into the rectum and advanced to the cecum without difficulty. The cecum was identified by transillumination, palpation, and identification of the ileocecal valve examination was performed. The scope was removed. She tolerated the procedure well and was returned to the recovery area in stable condition. FINDINGS: The terminal ileum was briefly examined and appeared normal. The visualized colonic mucosa was normal. The quality of the prep was good. There was 1 small less than 5 mm sessile polyp in the right colon, which was removed with a biopsy forceps. No other polyps were identified. The quality of the prep was good. Retroflexed examination showed small internal hemorrhoids. IMPRESSION: Colon polyp. RECOMMENDATION: Follow up the biopsy results. MD TONI Somers/GIOVANIL / [id number]
== END 2022-06-25 09:35 | disposition home or self-care (01) ==
PROVIDERS: PCP Internal Medicine Medical Oncology; Visit Provider Internal Medicine Gastroenterology
PROC: 0DJD8ZZ Inspection of Lower Intestinal Tract, Via Natural or Artificial Opening Endoscopic (ICD-10-PCS; CPT 45378; principal; 2022-06-25 08:10)
DX: Z12.11 Encounter for screening for malignant neoplasm of colon (principal); D12.2 Benign neoplasm of ascending colon; E11.9 Type 2 diabetes mellitus without complications
CPT/HCPCS: 45380; 88305; J2370

== ENCOUNTER → 2022-07-06 10:16 | Outpatient (BNVA) | payer MEDICARE, SELFPAY | PROVIDERS: PCP Internal Medicine Medical Oncology; Visit Provider Hospitalist | DX: J44.9 Chronic obstructive pulmonary disease, unspecified (principal); R06.00 Dyspnea, unspecified; F17.210 Nicotine dependence, cigarettes, uncomplicated | CPT/HCPCS: 99202 ==

== ENCOUNTER 2022-07-26 12:12 | Outpatient (REF) | payer MEDICARE, SELFPAY ==
[2022-07-26 12:35] LABS: Basophils Absolute Auto 0.1 X10*3/uL (0.0-0.2); Basophils Percent Auto 0.6 % (0-2); Eosinophils Absolute Auto 0.1 X10*3/uL (0.0-0.4); Hematocrit 24.3 % (37.0-47.0); Hemoglobin 7.9 g/dl (12.0-16.0); Lymphocytes Absolute Auto 2.8 X10*3/uL (1.2-4.9); MANUAL DIFF FLAG SCAN; Mean Corpuscular HGB Conc 32.5 g/dl (31.0-35.0); Mean Corpuscular Hemoglobin 41.4 pg (27.0-33.0); Monocytes Absolute Auto 1.5 X10*3/uL (0.1-1.2); Monocytes Percent Auto 18.8 % (2-11); NRBC Pct Auto 0.7 /100WBC (0.0-0.2); Neutrophils Absolute Auto 3.6 x10*3/uL (2.0-8.3); Neutrophils Percent Auto 44.6 % (45-73); Platelet Count 491 X10*3/uL (160-400); Red Blood Count 1.91 X10*6/uL (4.20-5.50); Red Cell Distribution Width 18.7 % (11.0-16.0); SCAN SMEAR FLAG 1
[2022-07-26 12:37] LABS: Mean Corpuscular Volume 127.2 fL (80.0-98.0)
[2022-07-26 13:07] LABS: Alanine Aminotransferase 8 U/L (0-31); Albumin Level 4.1 g/dL (3.5-5.0); Alkaline Phosphatase 152 U/L (39-117); Anion Gap 15 (12-20); Aspartate Amino Transferase 11 U/L (5-31); Bilirubin Total 0.5 mg/dL (0.0-1.0); Blood Urea Nitrogen 13 mg/dL (9-16); Calcium 9.4 mg/dL (8.4-10.2); Carbon Dioxide 25 mmol/L (22-29); Chloride 107 mmol/L (96-108); Estimated Glomerular Filt Rate 44; Glucose Random 102 mg/dL (60-115); Potassium 4.5 mmol/L (3.3-5.1); Sodium 142 mmol/L (135-145); Total Protein 5.5 g/dL (6.5-8.0)
[2022-07-26 13:20] LABS: Erythrocyte Sedimentation Rate 12 MM/HR (0-20)
[2022-07-26 13:23] LABS: SLIDE REVIEW VERIFIED
[2022-07-26 14:16] LABS: Vitamin B12 > 2000 pg/mL (200-900)
[2022-07-27 17:58] LABS: Beta-2 Microglobulin, Serum 3.88 mg/L (< OR = 2.51)
== END 2022-07-26 12:13 | disposition home or self-care (01) ==
LOC: HO.LAB 12:12
PROVIDERS: PCP Internal Medicine Medical Oncology; Visit Provider Internal Medicine Medical Oncology
DX: E11.9 Type 2 diabetes mellitus without complications (principal); C85.10 Unspecified B-cell lymphoma, unspecified site; I10 Essential (primary) hypertension; E78.5 Hyperlipidemia, unspecified; E53.8 Deficiency of other specified B group vitamins
CPT/HCPCS: 36415; 80053; 82232; 82607; 85025; 85652

== ENCOUNTER 2022-08-02 11:46 | Outpatient (REF) | payer MEDICARE, SELFPAY ==
[2022-08-02 12:28] LABS: Basophils Percent Auto 0.6 % (0-2); Eosinophils Percent Auto 0.4 % (0-4); Hematocrit 22.7 % (37.0-47.0); Hemoglobin 7.2 g/dl (12.0-16.0); Immature Retic Fraction 16.1 % (3.0-15.9); Lymphocytes Absolute Auto 3.2 X10*3/uL (1.2-4.9); Lymphocytes Percent Auto 45.4 % (20-40); MANUAL DIFF FLAG SCAN; Mean Corpuscular HGB Conc 31.7 g/dl (31.0-35.0); Mean Corpuscular Hemoglobin 40.4 pg (27.0-33.0); Mean Platelet Volume 14.4 fL (9.4-12.3); Monocytes Percent Auto 14.4 % (2-11); NRBC Pct Auto 0.9 /100WBC (0.0-0.2); Neutrophils Absolute Auto 2.7 x10*3/uL (2.0-8.3); Neutrophils Percent Auto 39.2 % (45-73); Platelet Count 458 X10*3/uL (160-400); Red Blood Count 1.78 X10*6/uL (4.20-5.50); Red Cell Distribution Width 19.5 % (11.0-16.0); Retic HGB Equivalent 38.2 pg (30.0-35.0); Reticulocytes Absolute 0.036 X10*6/uL (0.026-0.095); SCAN SMEAR FLAG 1
[2022-08-02 12:31] LABS: Mean Corpuscular Volume 127.5 fL (80.0-98.0)
[2022-08-02 12:50] LABS: SLIDE REVIEW VERIFIED
[2022-08-02 13:09] LABS: Alanine Aminotransferase 9 U/L (0-31); Albumin Level 4.1 g/dL (3.5-5.0); Alkaline Phosphatase 141 U/L (39-117); Anion Gap 17 (12-20); Aspartate Amino Transferase 11 U/L (5-31); Bilirubin Total 0.6 mg/dL (0.0-1.0); Blood Urea Nitrogen 17 mg/dL (9-16); Calcium 9.3 mg/dL (8.4-10.2); Carbon Dioxide 21 mmol/L (22-29); Chloride 107 mmol/L (96-108); Estimated Glomerular Filt Rate 39; Glucose Random 118 mg/dL (60-115); Potassium 4.5 mmol/L (3.3-5.1); Sodium 140 mmol/L (135-145); Total Protein 5.5 g/dL (6.5-8.0)
[2022-08-02 13:41] LABS: Ferritin 423 ng/mL (10-250); Folate 12.9 ng/mL (> or = 4.0)
[2022-08-02 14:23] LABS: Hemoglobin A1c % < 4.0 %
[2022-08-07 13:59] LABS: Alk.Phos Iso. Macrohepatic 0 % (<=0); Alk.Phos Isoenzymes Bone 72 % (28-66); Alk.Phos Isoenzymes Intest 0 % (1-24); Alk.Phos Isoenzymes Liver 28 % (25-69); Alk.Phos Isoenzymes Placental 0 % (<=0); Alk.Phos Isoenzymes Total 131 U/L (37-153)
== END 2022-08-02 11:47 | disposition home or self-care (01) ==
LOC: HO.LAB 11:46
PROVIDERS: PCP Internal Medicine Medical Oncology; Visit Provider Internal Medicine Medical Oncology
DX: Z13.89 Encounter for screening for other disorder (principal)
CPT/HCPCS: 36415; 80053; 82728; 82746; 83036; 84080; 85025; 85045

== ENCOUNTER 2022-08-03 07:20 | Outpatient (REF) | payer MEDICARE, SELFPAY | END 2022-08-03 07:21 | disposition home or self-care (01) | LOC: HO.MDS 07:20 | PROVIDERS: Visit Provider Internal Medicine Medical Oncology | DX: D64.9 Anemia, unspecified (principal); C85.90 Non-Hodgkin lymphoma, unspecified, unspecified site | CPT/HCPCS: 36430; 86850; 86900; 86901; 86923; P9016 ==

== ENCOUNTER 2022-08-03 13:37 | Inpatient (IN) | payer MEDICARE, SELFPAY ==
[2022-08-03] VITALS (9 sets, daily range): BP systolic 108–163; BP diastolic 50–97; PULSE 67–98; RESP 12–16; TEMP 36.7–37.3; O2SAT 96–100; BMI 23.1
--- NOTE | ~2022-08-03 | CT_ITS ---
EXAMINATION: CT ABDOMEN AND PELVIS WITH CONTRAST CLINICAL INFORMATION: Abnormal CT of the chest COMPARISON: CT chest 08/03/2022, today. TECHNIQUE: Multidetector volumetric images were obtained from the superior aspect of the liver through the pubic symphysis following administration 85 mL of Omnipaque 350 intravenous contrast. Sagittal and coronal reformatted images were obtained on the technologist's workstation. Oral contrast: No This CT examination was performed using dose optimization techniques as appropriate, variously including the following: *Automated exposure control *Adjustment of mA and/or kV according to patient size (this includes techniques or standardized protocols for targeted exams where dose is matched to indication/reason for exam; i.e. extremities or head) *Use of iterative reconstruction technique DLP: 442 mGy-cm FINDINGS: LUNG BASES: Bibasilar scarring is present. LIVER, GALLBLADDER, AND BILIARY TREE: The liver is normal in size, shape, and attenuation. Periportal edema is present new when compared to prior. No focal hepatic lesion or biliary ductal dilatation is present. Some pericholecystic fluid is present (3:32). No definite radiopaque gallstones are seen. Stranding is seen in the fat adjacent to the gallbladder. PANCREAS: Unremarkable. There are some mild inflammatory change is seen between the pancreatic tail and the left kidney. SPLEEN: Unremarkable. ADRENAL GLANDS: Left adrenal gland is marked symmetrically thickened as seen on the study earlier today, with the thickest part measuring 1.9 x 6.0 cm (see sequeira image). The right adrenal gland is unremarkable. KIDNEYS AND URETERS: The kidneys are normal in size, shape, and attenuation. There is a benign 2.7 cm cyst in the mid right kidney which is Bosniak class I and needs no additional imaging or follow-up. No solid renal masses. No hydronephrosis, hydroureter, or calculi seen. No perinephric stranding. BLADDER: Unremarkable. GASTROINTESTINAL TRACT: A small hiatal hernia is present. The small and large bowel are unremarkable. The appendix is unremarkable. ABDOMINAL WALL: No significant hernia is appreciated. LYMPH NODES: No retroperitoneal lymphadenopathy. No retroperitoneal hematomas. VASCULAR: Calcific atherosclerotic change seen in the aorta and iliofemoral vessels without aneurysm. PELVIC VISCERA: Unremarkable. The uterus is not present. An abnormal adnexal masses not seen. No free intraperitoneal fluid or blood is seen. OSSEOUS STRUCTURES: Unremarkable. CT/CT abdomen pelvis w IV con IMPRESSION: 1. There is periportal edema and some pericholecystic fluid present. No radiopaque gallstones are seen. Ultrasound is recommended for further evaluation. 2. No retroperitoneal hematoma is seen. No other evidence for blood loss requiring transfusion is seen. 3. Some mild inflammatory change seen between the pancreatic tail and left kidney. Please correlate with serum lipase and amylase. 4. Thickened left adrenal gland with some surrounding inflammatory change 5. Incidental note made of small hiatal hernia, benign right renal cyst and hysterectomy. Fleischner guidelines were followed.
--- NOTE | ~2022-08-03 | CT_ITS ---
EXAMINATION: CT ANGIOGRAM OF THE CHEST WITH AND WITHOUT CONTRAST (CT PULMONARY ANGIOGRAM FOR PE) CLINICAL INFORMATION: Reason for Exam back pain into chest with positive ddimer. Previous exams indicate history of lymphoma. COMPARISON: Previous chest x-ray from earlier the same day and CT of the chest abdomen and pelvis May 2022 TECHNIQUE: Prior to contrast administration, noncontrast localization images were obtained. Subsequently, multidetector volumetric imaging was performed from the thoracic inlet to below the diaphragms following the administration of 65 mL Omnipaque 350 intravenous contrast. No contrast reaction reported Sagittal, coronal, and MIP oblique sagittal reformatted images were obtained on the CT workstation, uploaded to PACS, and reviewed. This CT examination was performed using dose optimization techniques as appropriate, variously including the following: *Automated exposure control *Adjustment of mA and/or kV according to patient size (this includes techniques or standardized protocols for targeted exams where dose is matched to indication/reason for exam; i.e. extremities or head) *Use of iterative reconstruction technique Total exam dose-length product 179 mGy-cm FINDINGS: QUALITY OF STUDY/CONTRAST BOLUS: Satisfactory. PULMONARY ARTERIES: No pulmonary emboli. THORACIC AORTA: Normal LUNG: Biapical pleural and parenchymal scarring. 3 mm right upper lobe nodule axial image 13 series 5. These findings are stable. Lungs are otherwise clear. PLEURA: No pleural effusion or pneumothorax. MEDIASTINUM: Normal heart size. No pericardial effusion. No hilar or mediastinal lymphadenopathy. No evidence of septal bowing or right heart strain. There may be a small esophageal hernia. No coronary artery calcification. CORONARY ARTERY CALCIFICATION: None visualized on this study. CHEST WALL/AXILLA: No axillary or internal mammary lymphadenopathy. OSSEOUS STRUCTURES: No acute or suspicious osseous abnormality. UPPER ABDOMEN: The left adrenal gland appears increased in size compared to May 2022 There is new fat stranding in the left retroperitoneum surrounding the left adrenal gland and upper pole of the left kidney. There is a 3 cm cyst in the upper pole of the right kidney. No reflux of contrast into the hepatic veins to suggest elevated right heart pressures. CT/CT angio chest PE protocol IMPRESSION: No evidence of pulmonary embolism. Stable biapical pleural parenchymal scarring and small right upper lobe nodule. New fat stranding in the left retroperitoneum surrounding the left adrenal gland and upper pole of the left kidney. This may be related to patient's known lymphoma. Differential would include hemorrhage and infection. Clinical correlation recommended. VTE: negative.
--- NOTE | ~2022-08-03 | XR_ITS ---
EXAMINATION: XR CHEST CLINICAL INFORMATION: Chest pain COMPARISON: Chest 04/26/2022 TECHNIQUE: Portable AP upright view of the chest was obtained. FINDINGS: The tip of the right central venous port with tip terminating in the superior vena cava. Anterior cervical fusion plate without abnormality or change. EKG leads project over the chest. The lungs are well expanded. No focal consolidation, interstitial pulmonary edema or pneumothorax. The cardiac mediastinal sweat is within normal limits. The no pleural effusions. XR/XR chest 1V IMPRESSION: No acute cardiopulmonary disease.
--- NOTE | ~2022-08-03 | US_ITS ---
EXAMINATION: US ABDOMEN LIMITED CLINICAL INFORMATION: Right upper quadrant pain. Rule out cholecystitis.. COMPARISON: None available. TECHNIQUE: Real-time imaging of the right upper quadrant abdominal viscera. FINDINGS: GALLBLADDER: The gallbladder appears prominent but no echogenic stones or wall thickening. Gallbladder wall thickness is 0.2 cm. No pericholecystic fluid collection. There is no tenderness in right upper quadrant by ultrasound probe. COMMON BILE DUCT: Normal in caliber measuring 0.3 cm in diameter. US/US abdomen limited IMPRESSION: Unremarkable gallbladder.
--- NOTE | 2022-08-03 13:42 | ECG_ITS ---
Test Reason : chest pain Blood Pressure : / mmHG Vent. Rate : 083 BPM Atrial Rate : 083 BPM P-R Int : 152 ms QRS Dur : 074 ms QT Int : 380 ms P-R-T Axes : 071 064 057 degrees QTc Int : 446 ms Normal sinus rhythm Possible Anterior infarct , age undetermined Abnormal ECG When compared with ECG of 15-JUL-2021 18:06, No significant change was found Referred By: Sam Mak Electronically Signed By:ETHAN ALLISON MD
[2022-08-03 14:05] LABS: Basophils Absolute Auto 0.1 X10*3/uL (0.0-0.2); Basophils Percent Auto 0.9 % (0-2); Eosinophils Absolute Auto 0.1 X10*3/uL (0.0-0.4); Eosinophils Percent Auto 0.9 % (0-4); Hematocrit 30.7 % (37.0-47.0); Hemoglobin 10.2 g/dl (12.0-16.0); Imm Gran Abs Auto 0.01 X10*3/uL (0.00-0.03); Imm Gran Pct Auto 0.2 % (0.0-0.4); Lymphocytes Percent Auto 30.7 % (20-40); MANUAL DIFF FLAG SCAN; Mean Corpuscular HGB Conc 33.2 g/dl (31.0-35.0); Mean Corpuscular Hemoglobin 35.3 pg (27.0-33.0); Mean Corpuscular Volume 106.2 fL (80.0-98.0); Mean Platelet Volume 14.1 fL (9.4-12.3); Monocytes Absolute Auto 1.3 X10*3/uL (0.1-1.2); Monocytes Percent Auto 20.1 % (2-11); NRBC Pct Auto 0.3 /100WBC (0.0-0.2); Neutrophils Percent Auto 47.2 % (45-73); PLT CLUMP 1; Red Blood Count 2.89 X10*6/uL (4.20-5.50); Red Cell Distribution Width 27.1 % (11.0-16.0); SCAN SMEAR FLAG 1
--- NOTE | 2022-08-03 14:08 | ED.CHESTPAIN ---
HPI - Chest Pain General Chief Complaint: Chest Pain Stated Complaint: Chest Pain Time Seen by Provider: 08/03/22 13:42 Source: patient Mode of arrival: ambulatory Limitations: no limitations History of Present Illness HPI narrative: yesterday she developed back pain across lower thoracic going into the chest. There was blood work done found to be anemic and she was given 2 units of blood. Pain did not change after the transfusion. Patient with nausea and vomiting for 2 days. MD complaint: chest pain Onset (ago): day(s) Timing of current episode: constant Pain location: substernal and other (thoracic back) Related Data Home Medications Medication Instructions Recorded Confirmed acyclovir 400 mg tablet 400 mg PO BID 01/31/20 07/15/21 albuterol sulfate 90 mcg/actuation 1 puff PO Q4H PRN Shortness Of 01/31/20 07/15/21 aerosol inhaler Breath levothyroxine 125 mcg tablet 125 mcg PO DAILY@0600 01/31/20 07/15/21 paroxetine HCl 20 mg tablet 20 mg PO DAILY 01/31/20 07/15/21 trazodone 100 mg tablet 100 mg PO BEDTIME 01/31/20 07/15/21 cyanocobalamin (vitamin B-12) 1 tab PO DAILY 07/15/21 07/15/21 1,000 mcg tablet lorazepam 0.5 mg tablet 0.5 mg PO DAILY PRN anxiety 03/01/22 Previous Rx's Medication Instructions Recorded hydrocodone 5 mg-acetaminophen 325 1 tab PO Q8H PRN pain 7 days #21 03/30/22 mg tablet tabs umeclidinium 62.5 mcg-vilanterol 1 inh inhalation DAILY #60 ea 07/06/22 25 mcg/actuation powdr for inhalation (Anoro Ellipta) Allergies Allergy/AdvReac Type Severity Reaction Status Date / Time adhesive tape Allergy Unknown RASH Verified 07/06/22 10:32 bacitracin [Bacitracin] Allergy Unknown RASH Verified 07/06/22 10:32 Review of Systems Review of Systems: Yes all other systems are reviewed and are negative Cardiovascular: Cardiovascular: Reports chest pain Musculoskeletal: Comments: back pain Neurologic: Denies Sensory deficit (Neuro) PMFSH Past Medical History Medical History Anxiety COPD (chronic obstructive pulmonary disease) COPD with asthma Depression Dyspnea Hypothyroidism Non-Hodgkin lymphoma in remission Tobacco dependence Surgical History H/O: hysterectomy History of salpingo-oophorectomy S/P angiogram of extremity (02/13/20) Family History Family History Father CAD (coronary artery disease) Social History Social History Household Members: None Housing: Apartment Do you presently have visiting nurse or other home services: No Alcohol intake: never Patient Tobacco Use Status: Current everyday Tobacco user Tobacco use type: Cigar Cigarette Packs Per Day: 1 Cigarettes Per Day: 20.0 Years Smoked: 40 Smoked in Last 30 Days: No Second Hand Smoke Exposure: Yes Use of substances other than those prescribed or required for medical reasons: No Advance Directives: Yes Advance Directives on File: Yes Advance Directives Date on File: 03/11/21 service: No Current occupational status: retired Physical Exam Vital Signs: Vital Signs: Last Vital Signs Temp 99.2 F 08/03/22 16:00 Pulse 93 08/03/22 16:00 Resp 16 08/03/22 16:00 BP 108/55 L 08/03/22 16:00 Pulse Ox 98 08/03/22 16:00 O2 Del Method Room Air 08/03/22 16:00 BMI result Body Mass Index 23.1 Const: Other: Ill appearing, thin vomiting Nutritional Appearance: average body habitus Orientation/consciousness: oriented to person and patient oriented x3 Limitations: no limitations HEENT: Head: Yes normal to inspection Ears: external ears normal General nose exam: Normal external nose present Mouth: Normal oral and palatal mucosa present and oropharynx normal Throat: Yes posterior oropharynx normal Eyes: General: appearance normal, both eyes and all related structures Neck: Other: supple Neck: Yes normal visual inspection Chest: Chest palpation & inspection: normal inspection of the chest Resp: Auscultation: clear to auscultation bilaterally Cardio: Jugular venous distension: no JVD Rate: regular rate Rhythm: regular rhythm Heart sounds: S1 normal heart sound present and S2 normal heart sound present GI: Inspection: Yes normal to inspection Palpation (GI): Soft to palpation, nontender and No hepatosplenomegaly present Auscultation: normal bowel sounds : General: Yes no CVA tenderness Back/Spine/Pelvis: Back: no CVA tenderness Skin: General skin exam: no rashes or lesions noted Neuro: General: oriented to person and patient oriented x3 Cranial nerves: Yes CN's II-XII intact bilaterally Motor exam (neuro): 5/5 motor strength present throughout Sensory Exam: No Sensory deficit (Neuro) Extrem: General: Yes normal to inspection Psych: Appearance: grossly normal Course Reevaluation(s) Reevaluation #1: Thoracic back pain going to the chest, no evidence of liver elevation, pancreatitis currently working up for thoracic disection and PE Time: 16:22 Reevaluation #2: I spent 40 minutes of critical care, with interventions, assessments, speaking to patient, consultants, and family. Time: 16:27 Medications Administered Generic Name Dose Route Start Last Admin Trade Name Freq PRN Reason Stop Dose Admin Sodium Chloride 1,000 mls @ 125 mls/hr 08/03/22 14:15 08/03/22 14:33 Ns IVCONT 125 mls/hr .Q8H COLLINS Administration Discontinued Medications Generic Name Dose Route Start Last Admin Trade Name Freq PRN Reason Stop Dose Admin Iohexol 100 ml 08/03/22 15:28 08/03/22 15:28 Iohexol 350 Mg/Ml 100 Ml Infus..Btl IV 08/03/22 15:29 65 ml ONCE ONE Administration Ondansetron HCl 4 mg 08/03/22 14:08 08/03/22 14:33 Ondansetron Odt 4 Mg Tab.Rapdis TRANSLINGU 08/03/22 14:09 Not Given ONCE ONE Ondansetron HCl 4 mg 08/03/22 14:11 08/03/22 14:33 Ondansetron Hcl 4 Mg/2 Ml Vial IVPUSH 08/03/22 14:12 4 mg ONCE ONE Administration Ondansetron HCl 4 mg 08/03/22 15:00 08/03/22 15:05 Ondansetron Hcl 4 Mg/2 Ml Vial IVPUSH 08/03/22 15:01 4 mg ONCE ONE Administration Medical Decision Making Differential Diagnosis Differential Diagnoses: The differential diagnosis associated with the presentation includes (Cardiac ischemia, thoracic aortic dissection, PE, hepatitis, pancreatitis were all considered) Admission/Observation Consideration of admission/observation: Escalation of care including admission/observation considered (upon arrival this complicated ill female with back and chest pain, vomiting was considered for admission) Consult Healthcare Provider Management of the patient was discussed with: Primary Care Provider (Discussed with Dr. Juarez) Lab Data MDM Lab Attestation statement: I reviewed the patient's lab results. 08/03/22 13:55 08/03/22 13:55 Labs: Lab Results 08/03/22 08/03/22 08/03/22 Range/Units 13:55 13:55 13:55 WBC 6.4 (4.8-10.8) X10*3/uL RBC 2.89 L D (4.20-5.50) X10*6/uL Hgb 10.2 L D (12.0-16.0) g/dl Hct 30.7 L D (37.0-47.0) % MCV 106.2 H D (80.0-98.0) fL MCH 35.3 H (27.0-33.0) pg MCHC 33.2 (31.0-35.0) g/dl RDW 27.1 H (11.0-16.0) % Plt Count 387 (160-400) X10*3/uL MPV 14.1 H (9.4-12.3) fL Immature Gran % (Auto) 0.2 (0.0-0.4) % Neut % (Auto) 47.2 (45-73) % Lymph % (Auto) 30.7 (20-40) % [place] % (Auto) 20.1 H (2-11) % Eos % (Auto) 0.9 (0-4) % Baso % (Auto) 0.9 (0-2) % Lymph # (Auto) 2.0 (1.2-4.9) X10*3/uL [place] # (Auto) 1.3 H (0.1-1.2) X10*3/uL Eos # (Auto) 0.1 (0.0-0.4) X10*3/uL Baso # (Auto) 0.1 (0.0-0.2) X10*3/uL Abs Immat Gran (auto) 0.01 (0.00-0.03) X10*3/uL Absolute Neuts (auto) 3.0 (2.0-8.3) x10*3/uL Absolute Nucleated RBC 0.020 H (0.0-0.012) X10*3/uL Nucleated RBC % (auto) 0.3 H (0.0-0.2) /100WBC Smear Tech's Comments VERIFIED D-Dimer High Sensitivty 195 NG/ML Sodium 143 (135-145) mmol/L Potassium 3.9 (3.3-5.1) mmol/L Chloride 108 (96-108) mmol/L Carbon Dioxide 25 (22-29) mmol/L Anion Gap 14 (12-20) BUN 14 (9-16) mg/dL Creatinine 1.18 (0.5-1.4) mg/dL Estim Creat Clear Calc 37.1 Estimated GFR 45 Random Glucose 170 H (60-115) mg/dL Calcium 9.1 (8.4-10.2) mg/dL Total Bilirubin 0.9 (0.0-1.0) mg/dL Direct Bilirubin 0.3 (0.0-0.5) mg/dL AST 17 (5-31) U/L ALT 13 (0-31) U/L Alkaline Phosphatase 129 H (39-117) U/L Troponin I High Sens (<3.5-17.0) ng/L Total Protein 5.6 L (6.5-8.0) g/dL Albumin 3.9 (3.5-5.0) g/dL Lipase 9 (8-78) U/L 08/03/22 Range/Units 13:55 WBC (4.8-10.8) X10*3/uL RBC (4.20-5.50) X10*6/uL Hgb (12.0-16.0) g/dl Hct (37.0-47.0) % MCV (80.0-98.0) fL MCH (27.0-33.0) pg MCHC (31.0-35.0) g/dl RDW (11.0-16.0) % Plt Count (160-400) X10*3/uL MPV (9.4-12.3) fL Immature Gran % (Auto) (0.0-0.4) % Neut % (Auto) (45-73) % Lymph % (Auto) (20-40) % [place] % (Auto) (2-11) % Eos % (Auto) (0-4) % Baso % (Auto) (0-2) % Lymph # (Auto) (1.2-4.9) X10*3/uL [place] # (Auto) (0.1-1.2) X10*3/uL Eos # (Auto) (0.0-0.4) X10*3/uL Baso # (Auto) (0.0-0.2) X10*3/uL Abs Immat Gran (auto) (0.00-0.03) X10*3/uL Absolute Neuts (auto) (2.0-8.3) x10*3/uL Absolute Nucleated RBC (0.0-0.012) X10*3/uL Nucleated RBC % (auto) (0.0-0.2) /100WBC Smear Tech's Comments D-Dimer High Sensitivty NG/ML Sodium (135-145) mmol/L Potassium (3.3-5.1) mmol/L Chloride (96-108) mmol/L Carbon Dioxide (22-29) mmol/L Anion Gap (12-20) BUN (9-16) mg/dL Creatinine (0.5-1.4) mg/dL Estim Creat Clear Calc Estimated GFR Random Glucose (60-115) mg/dL Calcium (8.4-10.2) mg/dL Total Bilirubin (0.0-1.0) mg/dL Direct Bilirubin (0.0-0.5) mg/dL AST (5-31) U/L ALT (0-31) U/L Alkaline Phosphatase (39-117) U/L Troponin I High Sens < 2.7 (<3.5-17.0) ng/L Total Protein (6.5-8.0) g/dL Albumin (3.5-5.0) g/dL Lipase (8-78) U/L Independent Interpretation I performed an independent interpretation of an: EKG (sinus [address] or twave changes) and Plain X-Ray (CXR: port in place no infiltrate ) Chronic Conditions Patient?s care impacted by: Cancer Discharge Plan Discharge Clinical Impression: Chest pain, Acute thoracic back pain Patient Disposition: Still a Patient Prescriptions: No Action cyanocobalamin (vitamin B-12) 1,000 mcg tablet 1 tab PO DAILY hydrocodone-acetaminophen 5-325 mg tablet 1 tab PO Q8H PRN (Reason: pain) 7 Days Qty: 21 0RF Rx Instructions: Partial Fill upon patient request. trazodone 100 mg tablet 100 mg PO BEDTIME acyclovir 400 mg tablet 400 mg PO BID albuterol sulfate 90 mcg/actuation HFA aerosol inhaler 1 puff PO Q4H PRN (Reason: Shortness Of Breath) levothyroxine 125 mcg tablet 125 mcg PO DAILY@0600 paroxetine HCl 20 mg tablet 20 mg PO DAILY lorazepam 0.5 mg tablet 0.5 mg PO DAILY PRN (Reason: anxiety) Anoro Ellipta 62.5-25 mcg/actuation blister with device 1 inh inhalation DAILY Qty: 60 11RF
[2022-08-03 14:12] LABS: D Dimer High Sensitivity 195 NG/ML
[2022-08-03 14:29] LABS: Anion Gap 14 (12-20); Platelet Count 387 X10*3/uL (160-400); White Blood Count 6.4 X10*3/uL (4.8-10.8)
[2022-08-03 14:30] LABS: SLIDE REVIEW VERIFIED
[2022-08-03 14:33] LABS: Alanine Aminotransferase 13 U/L (0-31); Albumin Level 3.9 g/dL (3.5-5.0); Alkaline Phosphatase 129 U/L (39-117); Aspartate Amino Transferase 17 U/L (5-31); Bilirubin Direct 0.3 mg/dL (0.0-0.5); Bilirubin Total 0.9 mg/dL (0.0-1.0); Blood Urea Nitrogen 14 mg/dL (9-16); Calcium 9.1 mg/dL (8.4-10.2); Carbon Dioxide 25 mmol/L (22-29); Chloride 108 mmol/L (96-108); Creatinine Clr Calc Pharmacy 37.1; Estimated Glomerular Filt Rate 45; Glucose Random 170 mg/dL (60-115); Lipase 9 U/L (8-78); Potassium 3.9 mmol/L (3.3-5.1); Sodium 143 mmol/L (135-145); Total Protein 5.6 g/dL (6.5-8.0)
[2022-08-03] MEDS: 0.9 % Sodium Chloride 1,000 ML 125 ML IVCONT (14:33)
[2022-08-03] MEDS: ondansetron HCL 4 MG/2 ML VIAL IVPUSH ×2 (14:33→15:05)
[2022-08-03 14:34] LABS: Troponin-I High Sensitivity < 2.7 ng/L (<3.5-17.0)
[2022-08-03] MEDS: iohexoL 350 MG/ML 100 ML INFUS..BTL IV ×2 (15:28→19:21)
[2022-08-03] MEDS: Morphine Sulfate 4 MG/ML CARTRIDGE IVPUSH (16:28)
--- NOTE | 2022-08-03 17:31 | PM.CNGS ---
History of Present Illness Consult details Consult date: 08/03/22 Narrative: 72F referred for an abnormal CTA. She has a hx of lymphoma, non Hodgkins, in remission for 5 years, COPD, PAD, who was sent to the ED by Dr. Juarez for chest pain. She says she has been having vague chest pain which started on the right lateral area, extending to the back and sternum. She says this has been going on for 2 days, although currently she feels much better after given Morphine. She also describes some nausea but no vomitting. She was noted to have a Hg of 7.2 yesterday, and was transfused 2 units today. She denies blood per rectum or dark stools. She had a CTA of the chest to rule out a PE here in the ED which did not show clots. There was note of question of inflammatory changes around the left adrenal, and the it was stated on the report that a retroperitoneal bleed from the adrenal could not be ruled out. There was no extravasation of contrast however. She is not in any distress at this time. She says she is not short of breath. Review of Systems Constitutional: Constitutional: Denies chills, Denies fever(s) and Reports lethargy Cardiovascular: Cardiovascular: Reports chest pain and Denies dyspnea Respiratory: Respiratory: Denies cough, Denies hemoptysis and Denies dyspnea Gastrointestinal: Gastrointestinal: Denies abdominal pain and Denies melena Genitourinary: Genitourinary: Denies difficulty voiding PMFSH Past Medical History Medical History Anxiety COPD (chronic obstructive pulmonary disease) COPD with asthma Depression Dyspnea Hypothyroidism Non-Hodgkin lymphoma in remission Tobacco dependence Family History Family History Father CAD (coronary artery disease) Surgical History Surgical History H/O: hysterectomy History of salpingo-oophorectomy S/P angiogram of extremity (02/13/20) Social History Social History Household Members: None Housing: Apartment Do you presently have visiting nurse or other home services: No Alcohol intake: never Patient Tobacco Use Status: Current everyday Tobacco user Tobacco use type: Cigarette Cigarette Packs Per Day: 1 Cigarettes Per Day: 20.0 Years Smoked: 40 Smoked in Last 30 Days: Yes Patient Interested in Nicotine Replacement: No Patient Given Instructions on How to Stop Smoking: Yes Date Education Initiated: 08/04/22 Second Hand Smoke Exposure: No Use of substances other than those prescribed or required for medical reasons: No Advance Directives: Yes Advance Directives Information Provided: Yes Advance Directives on File: Yes Advance Directives Date on File: 03/11/21 Nutrition Risks: No Nutritional Risk service: No Current occupational status: retired [employer] Allergies Allergy/AdvReac Type Severity Reaction Status Date / Time adhesive tape Allergy Unknown RASH Verified 07/06/22 10:32 bacitracin [Bacitracin] Allergy Unknown RASH Verified 07/06/22 10:32 Active Medications: Current Medications Sodium Chloride (Ns) 1,000 mls @ 125 mls/hr IVCONT .Q8H COLLINS Last Admin: 08/03/22 14:33 Dose: 125 mls/hr Sodium Chloride (Ns) 1,000 mls @ 999 mls/hr IV .Q1H1M ONE Stop: 08/03/22 18:30 Home Medications Medication Instructions Recorded Confirmed Last Taken Type acyclovir 400 mg tablet 400 mg PO BID 01/31/20 08/03/22 08/03/22 History levothyroxine 125 mcg tablet 125 mcg PO DAILY@0600 01/31/20 08/03/22 08/03/22 History paroxetine HCl 20 mg tablet 20 mg PO DAILY 01/31/20 08/03/22 08/03/22 History trazodone 100 mg tablet 100 mg PO BEDTIME 01/31/20 08/03/22 08/02/22 History cyanocobalamin (vitamin B-12) 1 tab PO DAILY 07/15/21 08/03/22 08/03/22 History 1,000 mcg tablet lorazepam 0.5 mg tablet 0.5 mg PO DAILY PRN anxiety 03/01/22 08/03/22 07/27/22 History Physical Exam Vital Signs: Vital Signs: Last Vital Signs Temp 99.2 F 08/03/22 16:00 Pulse 93 08/03/22 16:00 Resp 16 08/03/22 16:00 BP 108/55 L 08/03/22 16:00 Pulse Ox 98 08/03/22 16:00 O2 Del Method Room Air 08/03/22 16:00 BMI result Body Mass Index 23.1 Const: General: comfortable and no acute distress Resp: Effort & Inspection: normal respiratory effort Cardio: Rate: regular rate Rhythm: regular rhythm GI: Palpation (GI): Soft to palpation, not firm, nontender and no guarding Results Labs 08/03/22 13:55 08/03/22 13:55 Labs: Abnormal lab results 08/03/22 08/03/22 Range/Units 13:55 13:55 RBC 2.89 L D (4.20-5.50) X10*6/uL Hgb 10.2 L D (12.0-16.0) g/dl Hct 30.7 L D (37.0-47.0) % MCV 106.2 H D (80.0-98.0) fL MCH 35.3 H (27.0-33.0) pg RDW 27.1 H (11.0-16.0) % MPV 14.1 H (9.4-12.3) fL [place] % (Auto) 20.1 H (2-11) % [place] # (Auto) 1.3 H (0.1-1.2) X10*3/uL Absolute Nucleated RBC 0.020 H (0.0-0.012) X10*3/uL Nucleated RBC % (auto) 0.3 H (0.0-0.2) /100WBC Random Glucose 170 H (60-115) mg/dL Alkaline Phosphatase 129 H (39-117) U/L Total Protein 5.6 L (6.5-8.0) g/dL Short CBC 08/03/22 Range/Units 13:55 WBC 6.4 (4.8-10.8) X10*3/uL Hgb 10.2 L D (12.0-16.0) g/dl Hct 30.7 L D (37.0-47.0) % Plt Count 387 (160-400) X10*3/uL BMP 08/03/22 13:55 Sodium 143 Potassium 3.9 Chloride 108 Carbon Dioxide 25 BUN 14 Creatinine 1.18 Calcium 9.1 Liver Function 08/03/22 Range/Units 13:55 Total Bilirubin 0.9 (0.0-1.0) mg/dL Direct Bilirubin 0.3 (0.0-0.5) mg/dL AST 17 (5-31) U/L ALT 13 (0-31) U/L Alkaline Phosphatase 129 H (39-117) U/L Albumin 3.9 (3.5-5.0) g/dL All other labs normal. Imaging CT scan - chest: report reviewed Assessment and Plan (1) Anemia: Status: Acute She had a CTA to rule out a PE, but this shows question of some inflammatory changes around the adrenal on the left. I do not see a hematoma, and there is no extravasation. I doubt that the anemia is from an acute bleed from the adrenal. A CT of the abd and pelvis with IV contrast can be done as well to rule out a retroperitonealoneal hematoma. She has appropriate increase in Hg after transfusion. There is no evidence of active bleeding. Time Spent With Patient Time: Total time managing care of this patient today ____ minutes. Procedures Date of Service Date of Service: 08/09/22
[2022-08-03] MEDS: 0.9 % Sodium Chloride 1,000 ML 999 ML IV (17:38)
--- NOTE | 2022-08-03 19:30 | PC.NURSE ---
assumed care of pt at 1900 - pt in CT scan.
--- NOTE | 2022-08-03 19:38 | MHC.EDTECH ---
PT 1999 ROUNDING DONE ,VITALS SIGN TAKEN ,PT REPEATED CBC DRAWN AND SENT TO LAB ,PT HAD A CAN OF KENDRICK REYES .
[2022-08-03 19:50] LABS: Basophils Percent Auto 0.5 % (0-2); Hematocrit 27.3 % (37.0-47.0); Lymphocytes Absolute Auto 2.1 X10*3/uL (1.2-4.9); Lymphocytes Percent Auto 25.5 % (20-40); Mean Corpuscular Hemoglobin 34.9 pg (27.0-33.0); Mean Corpuscular Volume 105.8 fL (80.0-98.0); Mean Platelet Volume 14.2 fL (9.4-12.3); Monocytes Absolute Auto 1.5 X10*3/uL (0.1-1.2); Monocytes Percent Auto 18.3 % (2-11); Neutrophils Absolute Auto 4.6 x10*3/uL (2.0-8.3); Neutrophils Percent Auto 55.7 % (45-73); PLT CLUMP 1; Red Blood Count 2.58 X10*6/uL (4.20-5.50); Red Cell Distribution Width 27.7 % (11.0-16.0)
[2022-08-03 20:20] LABS: NRBC Pct Auto 1.1 /100WBC (0.0-0.2); PLT ABN DIST 1; Platelet Count 325 X10*3/uL (160-400); White Blood Count 8.2 X10*3/uL (4.8-10.8)
[2022-08-03 20:22] LABS: MANUAL DIFF FLAG SCAN; SCAN SMEAR FLAG 1
--- NOTE | 2022-08-03 20:35 | PC.NURSE ---
PT AMBULATORY TO AND FROM BATHROOM WITH STEADY GAIT.
[2022-08-03] MEDS: HYDROmorphone HCl 1 MG/ML SYRINGE IVPUSH (20:48)
[2022-08-03] MEDS: Metoclopramide HCl 10 MG/2 ML VIAL IVPUSH (20:48)
--- NOTE | 2022-08-03 20:50 | PC.NURSE ---
pt requested medication for pain 10/31 pain back to lower back, MD hill made aware. pt also had a couple sips of cristo karthikeyan and has been vomiting since. aware. reglan 10mg and dilaudid 1mg administered per apr. pt on file keeper. will CTM.
--- NOTE | 2022-08-03 21:11 | PC.NURSE ---
Hospitalist in room assessing pt now. pt to be admitted to hospital for further management and testing to find out source of bleeding/low H&H counts. pt in agreement with [facility] plan. on cafeteria monitor reports great relief of pain and nausea s/p medication administration. will ctm.
[2022-08-03 21:15] LABS: OBS Int Ctl Valid YES; OBS1 NEGATIVE (NEGATIVE)
--- NOTE | 2022-08-03 21:24 | P.HPHOSP_ITS ---
patient seen and examined at bedside with NATALIA comes in with complaints of back pain, as well as chest pain, evaluation unremarkable, but has interacted bbl nausea vomiting, possibly secondary to gastritis, also his history of lymphoma, and has a drop of 2 units of hemoglobin from her baseline. Patient transfused 2 units of PRBC at ergonomic specialist office. Will monitor her H&H, antiemetics, for full H&P please see below History of Present Illness Date of Service: 08/03/22 Attending physician on admission: Marisabel Sanchez Chief Complaint: nausea/vomiting 72-year-old female with asthma/COPD overlap, depression, hypothyroidism, non- Hodgkin lymphoma in remission last chemotherapy 5 years ago but still has a chemotherapy port in place, anxiety, peripheral artery disease, and who is a current every day 1 pack cigarette smoker who presents to the ED from her PCP office for evaluation bilateral thoracic back pain that radiates to the chest that started yesterday and has been worsening. The patient was noted to be anemic with hemoglobin 7.2/hematocrit 22.7% yesterday and was transfused 2 units with improvement in H/H to 10.2/30.7% today. However, today she has also de veloped intractable nausea and vomiting. Since being in the ER, she has vomited 5 times. She does state that she has not been able to tolerate p.o. in the ED. H/H was rechecked this evening and has dropped to 9.0/27.3%. MCV 105.8. Stool occult blood negative in theED. Last BM was this morning and was normal. She denies any fevers, chills, abdominal pain, dysuria, hematuria, increased urinary frequency, urgency, diarrhea, melena, hematochezia, hematemesis, shortness of breath, lightheadedness, palpitations. She denies any history of similar symptoms. In the ED, CXR was negative for any acute cardiopulmonary disease. CTA chest negative for any PE and show stable biapical pleural parenchymal scarring and small right upper lobe nodule. There is also new fat stranding noted in the left retroperitoneum surrounding the left adrenal gland and upper pole of the left kidney possibly related to known lymphoma but differential to include hemorrhage or infection. General surgery was consulted who is recommending CT of the abdomen/pelvis to evaluate for any hematoma though suspicion was low for this. CT abdomen/pelvis with contrast shows periportal edema and some pericholecystic fluid but no radiopaque gallstones. There was no retroperitoneal hematoma or other evidence for blood loss requiring transfusion. There is mild inflammatory change between the pancreatic tail left kidney th ough serum lipase is normal. The left adrenal gland is thickened with some surrounding inflammatory change and there was also incidentally found small hiatal hernia and benign right renal cyst. No leukocytosis, renal function and lytes normal, trop below detectable limits. EKG showing NSR, rate 83 no DIEGO or depressions, unchanged from prior EKG. Pt to be observed for intractable nausea/vomiting. Review of Systems Review of Systems: General: No fevers, malaise, unintentional weight loss HEENT: No blurred vision, diplopia. No sore throat, nasal congestion, rhinorrhea, sinus pain, ear pain Cardiovascular: +chest pain. No chest pain, palpitations, or leg edema Respiratory: No shortness of breath, wheezing, cough GI: +n/v. No abdominal pain, diarrhea, constipation, melena, hematochezia : No dysuria, hematuria, increased urinary frequency, decreased urinary output MSK: No myalgia, back pain Neuro: No headaches, weakness, paresthesias Skin: No rashes or lesions COUNT INCLUDES THE [facility] Medical History Anxiety COPD (chronic obstructive pulmonary disease) COPD with asthma Depression Dyspnea Hypothyroidism Non-Hodgkin lymphoma in remission Tobacco dependence Family History Father CAD (coronary artery disease) Surgical History H/O: hysterectomy History of salpingo-oophorectomy S/P angiogram of extremity (02/13/20) Social History Household Members: None Housing: Apartment Do you presently have visiting nurse or other home services: No Alcohol intake: never Patient Tobacco Use Status: Current everyday Tobacco user Tobacco use type: Cigar Cigarette Packs Per Day: 1 Cigarettes Per Day: 20.0 Years Smoked: 40 Smoked in Last 30 Days: No Second Hand Smoke Exposure: Yes Use of substances other than those prescribed or required for medical reasons: No Advance Directives: Yes Advance Directives on File: Yes Advance Directives Date on File: 03/11/21 service: No Current occupational status: retired Meds Allergies Allergy/AdvReac Type Severity Reaction Status Date / Time adhesive tape Allergy Unknown RASH Verified 07/06/22 10:32 bacitracin [Bacitracin] Allergy Unknown RASH Verified 07/06/22 10:32 Active Medications: Current Medications Acetaminophen (Acetaminophen 325 Mg Tablet) 650 mg PO Q6H PRN PRN Reason: Pain, Mild (Pain Scale 1-3) Docusate Sodium (Docusate Sodium 100 Mg Capsule) 100 mg PO DAILY PRN PRN Reason: Constipation Famotidine (Famotidine/Pf 20 Mg/2 Ml Vial) 20 mg IVPUSH BID [facility] Sodium Chloride (Ns) 1,000 mls @ 125 mls/hr IVCONT .Q8H [facility] Last Admin: 08/03/22 14:33 Dose: 125 mls/hr Ondansetron HCl (Ondansetron Hcl 4 Mg/2 Ml Vial) 4 mg IVPUSH Q8H PRN PRN Reason: Nausea and Vomiting Pharmacy Consult (Consult Rx Perform Med Rec) 1 each MISCELLANE ONCE PRN PRN Reason: Consult order Sodium Chloride (0.9 % Sodium Chloride Flush 3 Ml Syringe) 3 ml IVFLUSH QSHIFT [facility] Home Medications Medication Instructions Recorded Confirmed Last Taken Type acyclovir 400 mg tablet 400 mg PO BID 01/31/20 08/03/22 08/03/22 History levothyroxine 125 mcg tablet 125 mcg PO DAILY@0600 01/31/20 08/03/22 08/03/22 History paroxetine HCl 20 mg tablet 20 mg PO DAILY 01/31/20 08/03/22 08/03/22 History trazodone 100 mg tablet 100 mg PO BEDTIME 01/31/20 08/03/22 08/02/22 History cyanocobalamin (vitamin B-12) 1 tab PO DAILY 07/15/21 08/03/22 08/03/22 History 1,000 mcg tablet lorazepam 0.5 mg tablet 0.5 mg PO DAILY PRN anxiety 03/01/22 08/03/22 07/27/22 History Physical Exam Vital Signs and Narrative: Vital Signs: Last Vital Signs Temp 98.7 F 08/03/22 19:37 Pulse 98 08/03/22 20:52 Resp 16 08/03/22 20:52 BP 154/63 H 08/03/22 20:52 Pulse Ox 97 08/03/22 20:52 O2 Del Method Room Air 08/03/22 20:52 BMI result Body Mass Index 23.1 Constitutional - Awake and Alert, No apparent distress Eyes - PERRLA, EOMI Cardiovascular - S1S2, RRR, III/ systolic ejection murmur, No edema Respiratory - Normal lung expansion, Normal respiratory effort, No respiratory distress, CTA bilaterally Gastrointestinal - NT / ND; +BS; No rebound or guarding - No CVA tenderness Extremities - no calf tenderness bilaterally, no swelling MSK- no reproducible ttp across mid back or chest Skin - Warm/Dry Neurological - Alert & oriented x3 Psychological - Appropriate affect Results Labs 08/03/22 19:36 08/03/22 13:55 Labs: Laboratory Results - last 24 hr 08/03/22 08/03/22 08/03/22 13:55 13:55 13:55 MCV 106.2 H D MCH 35.3 H MCHC 33.2 RDW 27.1 H Plt Count 387 MPV 14.1 H Immature Gran % (Auto) 0.2 Neut % (Auto) 47.2 Lymph % (Auto) 30.7 [place] % (Auto) 20.1 H Eos % (Auto) 0.9 Baso % (Auto) 0.9 Lymph # (Auto) 2.0 [place] # (Auto) 1.3 H Eos # (Auto) 0.1 Baso # (Auto) 0.1 Abs Immat Gran (auto) 0.01 Absolute Neuts (auto) 3.0 Absolute Nucleated RBC 0.020 H Nucleated RBC % (auto) 0.3 H Smear Tech's Comments VERIFIED D-Dimer High Sensitivty 195 Anion Gap 14 Estim Creat Clear Calc 37.1 Estimated GFR 45 Random Glucose 170 H Calcium 9.1 Total Bilirubin 0.9 Direct Bilirubin 0.3 AST 17 ALT 13 Alkaline Phosphatase 129 H Troponin I High Sens Total Protein 5.6 L Albumin 3.9 Lipase 9 Stool Occult Blood 08/03/22 08/03/22 08/03/22 13:55 19:36 21:09 MCV 105.8 H MCH 34.9 H MCHC 33.0 RDW 27.7 H Plt Count 325 MPV 14.2 H Immature Gran % (Auto) 0.0 Neut % (Auto) 55.7 Lymph % (Auto) 25.5 [place] % (Auto) 18.3 H Eos % (Auto) 0.0 Baso % (Auto) 0.5 Lymph # (Auto) 2.1 [place] # (Auto) 1.5 H Eos # (Auto) 0.0 Baso # (Auto) 0.0 Abs Immat Gran (auto) 0.00 Absolute Neuts (auto) 4.6 Absolute Nucleated RBC 0.090 H Nucleated RBC % (auto) 1.1 H Smear Tech's Comments D-Dimer High Sensitivty Anion Gap Estim Creat Clear Calc Estimated GFR Random Glucose Calcium Total Bilirubin Direct Bilirubin AST ALT Alkaline Phosphatase Troponin I High Sens < 2.7 Total Protein Albumin Lipase Stool Occult Blood NEGATIVE Imaging Radiologist's Impressions: Impressions Chest X-Ray 08/03/22 14:43 IMPRESSION: No acute cardiopulmonary disease. Chest CTA 08/03/22 15:34 IMPRESSION: No evidence of pulmonary embolism. Stable biapical pleural parenchymal scarring and small right upper lobe nodule. New fat stranding in the left retroperitoneum surrounding the left adrenal gland and upper pole of the left kidney. This may be related to patient's known lymphoma. Differential would include hemorrhage and infection. Clinical correlation recommended. VTE: negative. Abdomen/Pelvis CT 08/03/22 19:35 IMPRESSION: 1. There is periportal edema and some pericholecystic fluid present. No radiopaque gallstones are seen. Ultrasound is recommended for further evaluation. 2. No retroperitoneal hematoma is seen. No other evidence for blood loss requiring transfusion is seen. 3. Some mild inflammatory change seen between the pancreatic tail and left kidney. Please correlate with serum lipase and amylase. 4. Thickened left adrenal gland with some surrounding inflammatory change 5. Incidental note made of small hiatal hernia, benign right renal cyst and hysterectomy. Fleischner guidelines were followed. Assessment and Plan (1) Intractable vomiting: Status: Acute (2) Chest pain: Status: Acute (3) Acute thoracic back pain: Status: Acute (4) Anemia: Status: Acute Plan 72-year-old female with asthma/COPD overlap, depression, hypothyroidism, non- Hodgkin lymphoma in remission last chemotherapy 5 years ago but still has a chemotherapy port in place, anxiety, peripheral artery disease, and who is a current every day 1 pack cigarette smoker to be observed for intractable nausea and vomiting. #Intractable nausea/vomiting- etiology unclear -?r/t small hiatal hernia, ?GERD, ?esophagitis -IV famotidine BID -Ondansetron prn -Clear liquids as tolerated -Outpt follow up on hiatal hernia #B/l thoracic pain radiating to chest -not reproducible -EKG NSR, no DIEGO or depressions, trop normal -CTA chest negative for acute abnormality including dissection -?r/t hiatal hernia -Lidocaine patch -Management as above #Acute on chronic macrocytic anemia -4/10 Hgb 10.7, 6/5 HGB 7.9. MCV 127.2. Received 2 units PRBC yesterday through PCP -H/H earlier today 10.2/30.7%, dropped to 9.0/27.3% this evening. MCV now 105.8 -his stool occult blood negative -ferritin yesterday elevated at 423. Vitamin B12>2000, folate 12.9 -Iron studies, retic count, LDH ordered #Asthma/COPD overlap -no acute exacerbation -Continue maintenance inhalers, albuterol p.r.n. #Hypothyroidism -continue synthroid #Mood disorder -continue home meds # non-Hodgkin's lymphoma -in remission, last chemotherapy about 5 years ago. Chemo port still in place, flushed monthly #Nicotine dependence -declines nrt -smoking cessation counseling DVT prophylaxis-SCPs Do not intubate Time Spent With Patient Time: Total time managing care of this patient today ____ minutes. Quality Stroke Does the patient have a stroke diagnosis?: No VTE Prior VTE?: No VTE Risk Level:: Medical - moderate - high VTE Device Contraindication: N/A - Device Ordered VTE Drug Contraindication: Treatment Not Indicated
--- NOTE | 2022-08-03 21:27 | PC.NURSE ---
pt dip down to 88% O2 on room air when falling asleep after Dilaudid administration. pt easily arousable when spoken to denies any difficulty breathing. placed on 2L NC for when she falls asleep.
--- NOTE | 2022-08-03 21:32 | MHC.EDTECH ---
pPT RING CALL DEVIN ,SAID HE WAS HUNGRY ,PBJ AND TUNA SANDWICH WITH KENDRICK AMY GIVEN ,VITALS SIGN TAKEN ,PT SAID HE WANT TO LEAVE PROVIDER AWARE AWARE .
--- NOTE | 2022-08-03 21:37 | PHA.MEDREC ---
Pharmacy Consult ? Medication Reconciliation Pharmacy has completed the medication reconciliation.
--- NOTE | 2022-08-03 21:44 | MHC.EDTECH ---
2200 ROUNDING DONE ,VITALS SIGN TAKEN ,PT DRANK 240 ML KENDRICK AMY ,PT RESTING QUIETLY IN BED .
[2022-08-03] MEDS: Famotidine/PF 20 MG/2 ML VIAL IVPUSH (21:48)
--- NOTE | 2022-08-03 22:38 | MHC.CM.PN ---
Pt sleeping soundly. Unable to complete CM assessment and discharge planning. Bed assignment pending. CM will assess when patient wakes.
--- NOTE | 2022-08-04 00:42 | PC.NURSE ---
pt ambulatory to bathroom with steady gait. urine sample collected and sent by tech. nurse to nurse report given to overflow RN.
[2022-08-04 00:46] LABS: Appearance Urine Clear; Color Urine Yellow; Glucose Urine UA Negative (Negative); Leukocyte Esterase Urine Negative (Negative); Nitrite Urine Negative (Negative); Specific Gravity - Urine >= 1.030 (1.005-1.025); UMIC TRIGGER UACC YES; Urine Blood Moderate (2+) (Negative); Urine Ketones Negative (Negative); Urine Protein Trace mg/dL (Neg-Trace)
--- NOTE | 2022-08-04 00:50 | MHC.EDTECH ---
PT WAS AMBULATED TO THE BATHROOM ,BACK TO BED ,PT WORK 400 ML URINE SAMPLE COLLECTED AND SENT TO LAB ,PT HAS MOVED TO OVERFLOW .
[2022-08-04 00:52] LABS: Bacteria Urine 1+ (None Seen); Hyaline Casts Urine 0-2 /LPF (0-2); RBC Urine >20 /HPF (0-2); Squamous Epithelial Cell Urine 0-2 /HPF (0-2); WBC Urine 0-5 /HPF (0-5)
--- NOTE | 2022-08-04 01:16 | PC.NURSE ---
Pt arrived from main ED via wheelchair accompanied by staff. She is A&OX4, calm and cooperative. Lungs are clear, On ra. Pt on clear liq diet, no c/o N/V currently. IVF infusing via R-chest port. Call light within reach, safety prec maintained.
[2022-08-04] MEDS: ondansetron HCL 4 MG/2 ML VIAL IVPUSH ×2 (04:41→12:24)
[2022-08-04] MEDS: 0.9 % Sodium Chloride 1,000 ML 125 ML IVCONT (04:41)
[2022-08-04] MEDS: Acetaminophen 325 MG TABLET 650 MG PO ×3 (04:49→19:57)
[2022-08-04 06:00] VITALS: BP 141/69; PULSE 90; RESP 16; TEMP 36.9; O2SAT 92
[2022-08-04 06:38] LABS: Basophils Absolute Auto 0.1 X10*3/uL (0.0-0.2); Basophils Percent Auto 1.1 % (0-2); Eosinophils Percent Auto 0.4 % (0-4); Hematocrit 28.1 % (37.0-47.0); Hemoglobin 9.2 g/dl (12.0-16.0); Lymphocytes Absolute Auto 1.3 X10*3/uL (1.2-4.9); Lymphocytes Percent Auto 16.4 % (20-40); MANUAL DIFF FLAG SCAN; Mean Corpuscular HGB Conc 32.7 g/dl (31.0-35.0); Mean Corpuscular Hemoglobin 35.1 pg (27.0-33.0); Mean Corpuscular Volume 107.3 fL (80.0-98.0); Monocytes Absolute Auto 1.7 X10*3/uL (0.1-1.2); Monocytes Percent Auto 20.6 % (2-11); Neutrophils Percent Auto 61.5 % (45-73); PLT CLUMP 1; Red Blood Count 2.62 X10*6/uL (4.20-5.50); Red Cell Distribution Width 27.8 % (11.0-16.0); SCAN SMEAR FLAG 1
[2022-08-04 07:08] LABS: Anion Gap 11 (12-20); Blood Urea Nitrogen 9 mg/dL (9-16); Calcium 8.6 mg/dL (8.4-10.2); Carbon Dioxide 23 mmol/L (22-29); Chloride 111 mmol/L (96-108); Creatinine Clr Calc Pharmacy 46.2; Estimated Glomerular Filt Rate 58; Glucose Random 131 mg/dL (60-115); Iron 73 mcg/dL (30-160); Lactate Dehydrogenase 267 U/L (122-220); Percent Iron Saturation 30 % (15-50); Potassium 4.1 mmol/L (3.3-5.1); Sodium 141 mmol/L (135-145); Total Iron Binding Capacity 245 mcg/dL (228-428); Unsaturated Iron Binding 172 ug/dL
[2022-08-04 07:15] VITALS: BP 156/68; PULSE 98; RESP 18; TEMP 36.6; O2SAT 94
[2022-08-04] MEDS: Famotidine/PF 20 MG/2 ML VIAL IVPUSH ×2 (07:36→19:58)
[2022-08-04] MEDS: 0.9 % Sodium Chloride Flush 3 ML SYRINGE IVFLUSH ×2 (07:38→15:16)
[2022-08-04] MEDS: Lidocaine 4 % Patch ADH..PATCH 2 PATCH TRANSDERMA (07:39)
[2022-08-04 07:54] LABS: Platelet Count 301 X10*3/uL (160-400); White Blood Count 8.2 X10*3/uL (4.8-10.8)
[2022-08-04 07:55] LABS: Mean Platelet Volume 13.8 fL (9.4-12.3); SLIDE REVIEW VERIFIED
--- NOTE | 2022-08-04 07:59 | PC.NURSE ---
Patient alert and oriented x4. Reports 10/10 back pain, Lidocaine patch applied, Tylenol previously given. Patient reports Tylenol not helping. Dr. Browning made aware. Intermittent nausea with vomiting. Patient denies nausea at this time, denies chest pain, dizziness. Lung sounds clear throughout. Bowel sounds hypoactive throughout. Patient reports BM 6/13 AM, passing flatus. Ambulated supervision to bathroom, +void. R chest port access, flushed no issues. Patient to be transferred to [place] [id number], awaiting nurse to nurse report.
--- NOTE | 2022-08-04 08:08 | MHC.EDTECH ---
ambulated pt to restroom , set up breakfast /clears
[2022-08-04 09:24] VITALS: BP 151/68; PULSE 83; RESP 18; TEMP 36.7; O2SAT 95
[2022-08-04] MEDS: oxyCODONE HCl Immed Release 5 MG TABLET PO ×2 (10:26→16:34)
--- NOTE | 2022-08-04 11:49 | MHC.CM.PN ---
GAMBINO 08[birth year]22 Female 72 DX N/V Patient lives alone. She is independent with ADLs.. She uses a cane as needed when she goes out. She is vaxxed for covid. A HCP is on file. DP home self care. She will self transport home. Her car is in the lot.
--- NOTE | 2022-08-04 12:16 | HO.PM.IMPN ---
Subjective Subjective Date of Service: 08/04/22 Interval History: complaining of left mid back pain with radiation to mid abdomen symptoms started 2 days ago associated with nausea,no vomiting, no hematemesis, denies associated diarrhea, no dark-colored stools, no outside food, no other family member with similar symptoms, denies fever chills, no dysphagia, denies urinary symptoms of urgency frequency, was able to drink clear liquids but vomited. Review of Systems all other system reviewed and negative. Physical Exam Vital Signs: Vital Signs: Last Vital Signs Temp 98.1 F 08/04/22 09:24 Pulse 83 08/04/22 09:24 Resp 18 08/04/22 09:24 BP 151/68 H 08/04/22 09:24 Pulse Ox 95 08/04/22 09:24 O2 Del Method Room Air 08/04/22 09:24 O2 Flow Rate 2 08/03/22 21:42 BMI result Body Mass Index 23.1 Const: Other: General awake alert x3,in no acute distress. anicteric sclera Neck supple no JVD. CVS regular rate rhythm, Respiratory lungs clear to auscultation, no respiratory distress, no wheeze, no rhonchi. Gastrointestinal abdomen soft, nontender, bowel sounds audible, no guarding , no rigidity. Extremities no edema. Neuro nonfocal Skin no rash Psyche appropriate affect Objective Data Active Medications Acetaminophen (Acetaminophen 325 Mg Tablet) 650 mg PO Q6H PRN PRN Reason: Pain, Mild (Pain Scale 1-3) Last Admin: 08/04/22 04:49 Dose: 650 mg Documented By: DEON Acetaminophen (Acetaminophen 325 Mg Tablet) 650 mg PO TID [facility] Docusate Sodium (Docusate Sodium 100 Mg Capsule) 100 mg PO DAILY PRN PRN Reason: Constipation Famotidine (Famotidine/Pf 20 Mg/2 Ml Vial) 20 mg IVPUSH BID [facility] Last Admin: 08/04/22 07:36 Dose: 20 mg Documented By: LOIS Lidocaine (Lidocaine 4 % Patch Adh..Patch) 2 patch TRANSDERMA DAILY [facility]; Protocol Last Admin: 08/04/22 07:39 Dose: 2 patch Documented By: LOIS Ondansetron HCl (Ondansetron Hcl 4 Mg/2 Ml Vial) 4 mg IVPUSH Q6H PRN PRN Reason: Nausea and Vomiting Oxycodone HCl (Oxycodone Hcl Immed Release 5 Mg Tablet) 5 mg PO Q6H PRN PRN Reason: Pain, Moderate(Pain Scale 4-6) Last Admin: 08/04/22 10:26 Dose: 5 mg Documented By: CAYDEN Pharmacy Consult (Consult Rx Perform Med Rec) 1 each MISCELLANE ONCE PRN PRN Reason: Consult order Sodium Chloride (0.9 % Sodium Chloride Flush 3 Ml Syringe) 3 ml IVFLUSH QSHIFT [facility] Last Admin: 08/04/22 07:38 Dose: 3 ml Documented By: LOIS Labs 08/04/22 06:07 08/04/22 06:07 Labs: Laboratory Results - last 24 hr 08/03/22 08/03/22 08/03/22 13:55 13:55 13:55 MCV 106.2 H D MCH 35.3 H MCHC 33.2 RDW 27.1 H Plt Count 387 MPV 14.1 H Immature Gran % (Auto) 0.2 Neut % (Auto) 47.2 Lymph % (Auto) 30.7 Donley % (Auto) 20.1 H Eos % (Auto) 0.9 Baso % (Auto) 0.9 Lymph # (Auto) 2.0 Donley # (Auto) 1.3 H Eos # (Auto) 0.1 Baso # (Auto) 0.1 Abs Immat Gran (auto) 0.01 Absolute Neuts (auto) 3.0 Absolute Nucleated RBC 0.020 H Nucleated RBC % (auto) 0.3 H Smear Tech's Comments VERIFIED D-Dimer High Sensitivty 195 Anion Gap 14 Estim Creat Clear Calc 37.1 Estimated GFR 45 Random Glucose 170 H Calcium 9.1 Iron TIBC % Saturation Unsat Iron Binding Total Bilirubin 0.9 Direct Bilirubin 0.3 AST 17 ALT 13 Alkaline Phosphatase 129 H Lactate Dehydrogenase Troponin I High Sens Total Protein 5.6 L Albumin 3.9 Lipase 9 Urine Color Urine Appearance Urine pH Ur Specific [place] Urine Protein Urine Glucose (UA) Urine Ketones Urine Blood Urine Nitrite Ur Leukocyte Esterase Urine RBC Urine WBC Ur Squamous Epith Cells Urine Bacteria Hyaline Casts Stool Occult Blood 08/03/22 08/03/22 08/03/22 13:55 19:36 21:09 MCV 105.8 H MCH 34.9 H MCHC 33.0 RDW 27.7 H Plt Count 325 MPV 14.2 H Immature Gran % (Auto) 0.0 Neut % (Auto) 55.7 Lymph % (Auto) 25.5 Donley % (Auto) 18.3 H Eos % (Auto) 0.0 Baso % (Auto) 0.5 Lymph # (Auto) 2.1 Donley # (Auto) 1.5 H Eos # (Auto) 0.0 Baso # (Auto) 0.0 Abs Immat Gran (auto) 0.00 Absolute Neuts (auto) 4.6 Absolute Nucleated RBC 0.090 H Nucleated RBC % (auto) 1.1 H Smear Tech's Comments D-Dimer High Sensitivty Anion Gap Estim Creat Clear Calc Estimated GFR Random Glucose Calcium Iron TIBC % Saturation Unsat Iron Binding Total Bilirubin Direct Bilirubin AST ALT Alkaline Phosphatase Lactate Dehydrogenase Troponin I High Sens < 2.7 Total Protein Albumin Lipase Urine Color Urine Appearance Urine pH Ur Specific [place] Urine Protein Urine Glucose (UA) Urine Ketones Urine Blood Urine Nitrite Ur Leukocyte Esterase Urine RBC Urine WBC Ur Squamous Epith Cells Urine Bacteria Hyaline Casts Stool Occult Blood NEGATIVE 08/04/22 08/04/22 08/04/22 00:39 06:07 06:07 MCV 107.3 H MCH 35.1 H MCHC 32.7 RDW 27.8 H Plt Count 301 MPV 13.8 H Immature Gran % (Auto) 0.0 Neut % (Auto) 61.5 Lymph % (Auto) 16.4 L [place] % (Auto) 20.6 H Eos % (Auto) 0.4 Baso % (Auto) 1.1 Lymph # (Auto) 1.3 Donley # (Auto) 1.7 H Eos # (Auto) 0.0 Baso # (Auto) 0.1 Abs Immat Gran (auto) 0.00 Absolute Neuts (auto) 5.0 Absolute Nucleated RBC 0.080 H Nucleated RBC % (auto) 1.0 H Smear Tech's Comments VERIFIED D-Dimer High Sensitivty Anion Gap 11 L Estim Creat Clear Calc 46.2 Estimated GFR 58 Random Glucose 131 H Calcium 8.6 Iron 73 TIBC 245 % Saturation 30 Unsat Iron Binding 172 Total Bilirubin Direct Bilirubin AST ALT Alkaline Phosphatase Lactate Dehydrogenase 267 H Troponin I High Sens Total Protein Albumin Lipase Urine Color Yellow Urine Appearance Clear Urine pH 6.0 Ur Specific [place] >= 1.030 H Urine Protein Trace Urine Glucose (UA) Negative Urine Ketones Negative Urine Blood Moderate (2+) H Urine Nitrite Negative Ur Leukocyte Esterase Negative Urine RBC >20 H Urine WBC 0-5 Ur Squamous Epith Cells 0-2 Urine Bacteria 1+ Hyaline Casts 0-2 Stool Occult Blood Assessment and Plan (1) Intractable vomiting: Status: Acute (2) Tobacco dependence: Status: Acute Plan 72-year-old female with asthma/COPD overlap, depression, hypothyroidism, non-Hodgkin lymphoma in remission last chemotherapy 5 years ago but still has a chemotherapy port in place, anxiety, peripheral artery disease, and who is a current every day 1 pack cigarette smoker to be observed for intractable nausea and vomiting. #Intractable nausea/vomiting- etiology unclear -persistent nausea vomiting but less frequent , question etiology ddx r/t small hiatal hernia, ?GERD, ?esophagitis normal lipase and LFTs, CT abdomen and pelvis showed mild inflammatory change between the pancreatic tail and left kidney, thickened left adrenal Gland with some surrounding inflammatory change -cont.IV famotidine BID,iv Ondansetron prn -advanced to full liquid diet -Outpt follow up on hiatal hernia # mid to lower back and abdominal pain -not reproducible, UA unremarkable no urinary symptoms, normal LFTs, normal lipase -EKG NSR, no DIEGO or depressions, trop normal -CTA chest negative for acute abnormality including dissection, CT abdomen unremarkable continue analgesics and supportive care #Acute on chronic macrocytic anemia -4/10 Hgb 10.7, 6/5 HGB 7.9. MCV 127.2. Received 2 units PRBC yesterday through PCP -H/H stable.? MCV now 105.8 -stool occult blood negative -ferritin elevated at 423. Vitamin B12>2000, folate 12.9 -Iron studies unremarkable, retic count mildly elevated likely due to anemia, LDH mildly elevated less likely hemolysis. - will need outpatient further workup question bone marrow exam will refer to outpatient oncology. #Asthma/COPD overlap -no acute exac, Continue maintenance inhalers, albuterol p.r.n. #Hypothyroidism -continue synthroid #Mood disorder -continue home meds # non-Hodgkin's lymphoma -in remission, last chemotherapy about 5 years ago.? Chemo port still in place, flushed monthly #Nicotine dependence -declines nrt -smoking cessation counseling DVT prophylaxis-SCPs Do not intubate admitted under observation. Time Spent With Patient Time: Total time managing care of this patient today ____ minutes. Quality Stroke Does the patient have a stroke diagnosis?: No VTE Prior VTE?: No VTE Risk Level:: Medical - moderate - high VTE Device Contraindication: N/A - Device Ordered VTE Drug Contraindication: Treatment Not Indicated
[2022-08-04 15:03] VITALS: BP 136/64; PULSE 92; RESP 18; TEMP 36.2; O2SAT 93
[2022-08-04] MEDS: Dextrose 5 % and Lactated Ring 1,000 ML 100 ML IVCONT (15:17)
[2022-08-04 15:27] LABS: Immature Retic Fraction 19.8 % (3.0-15.9); Retic HGB Equivalent 35.7 pg (30.0-35.0); Reticulocyte Percent 1.8 % (0.5-1.8); Reticulocytes Absolute 0.049 X10*6/uL (0.026-0.095)
--- NOTE | 2022-08-04 15:29 | PC.NURSE ---
Patient asking for her inhaler and allergy pill ,pt does not know the name of it,Dr. Browning notified
[2022-08-04] MEDS: Loratadine 10 MG TABLET PO (16:34)
--- NOTE | 2022-08-04 17:15 | PC.NURSE ---
patient friend will bring own inhaler from home,
[2022-08-04 19:07] VITALS: BP 136/79; PULSE 93; RESP 18; TEMP 37.6; O2SAT 93
[2022-08-04] MEDS: traZODone HCL 100 MG TABLET PO (19:57)
[2022-08-04] MEDS: Acyclovir 200 MG CAPSULE 400 MG PO (22:06)
[2022-08-04 23:36] VITALS: BP 138/64; PULSE 99; RESP 18; TEMP 37.3; O2SAT 93
[2022-08-05] MEDS: Dextrose 5 % and Lactated Ring 1,000 ML 100 ML IVCONT ×3 (00:30→20:36)
[2022-08-05] MEDS: oxyCODONE HCl Immed Release 5 MG TABLET PO ×3 (03:24→21:09)
[2022-08-05 03:30] VITALS: BP 152/69; PULSE 93; RESP 16; TEMP 36.4; O2SAT 93
[2022-08-05 07:23] VITALS: BP 119/56; PULSE 96; RESP 22; TEMP 37.8; O2SAT 90
[2022-08-05] MEDS: Acetaminophen 325 MG TABLET 650 MG PO ×3 (08:16→20:36)
[2022-08-05] MEDS: Famotidine/PF 20 MG/2 ML VIAL IVPUSH ×2 (08:16→20:36)
[2022-08-05] MEDS: Acyclovir 200 MG CAPSULE 400 MG PO ×2 (08:16→20:36)
[2022-08-05] MEDS: PARoxetine HCL 20 MG TABLET PO (08:16)
[2022-08-05] MEDS: Albuterol Sulfate 90 MCG 8 GM INHALER 2 PUFF INHALE (08:52)
[2022-08-05 11:16] VITALS: BP 116/61; PULSE 98; RESP 18; TEMP 37.6; O2SAT 91
--- NOTE | 2022-08-05 15:03 | HO.PM.IMPN ---
Subjective Subjective Date of Service: 08/05/22 Interval History: feels better since yesterday less nausea and vomiting is still complaining of intermittent abdominal pain that is generalized on both left and right side, denies diarrhea noted to have fever of 100 this morning, denies urinary symptoms of urgency and frequency, denies shortness of breath no cough, no chest pain, no palpitations. Review of Systems All other systems are reviewed and negative. Physical Exam Vital Signs: Vital Signs: Last Vital Signs Temp 99.6 F 08/05/22 11:16 Pulse 98 08/05/22 11:16 Resp 18 08/05/22 11:16 BP 116/61 08/05/22 11:16 Pulse Ox 91 L 08/05/22 11:16 O2 Del Method Room Air 08/05/22 11:16 O2 Flow Rate 2 08/03/22 21:42 BMI result Body Mass Index 23.1 Const: Other: General? awake karthikeyan rt x3,in no acute distress.? anicter ic sclera Neck? rinaldi pple no JVD. CVS? regular rate rhyth m, Respiratory huey gs clear to auscul tation, no respira tory distress, no wheeze, no rhonchi . Gastrointestinal abdomen soft, non tender, bowel soun ds audible, no gua rding , no rigidit y. Extremities no edema. Neuro nonfo cristian Skin no rash P syche appropriate affect Objective Data Active Medications Acetaminophen (Acetaminophen 325 Mg Tablet) 650 mg PO Q6H PRN PRN Reason: Pain, Mild (Pain Scale 1-3) Last Admin: 08/04/22 04:49 Dose: 650 mg Documented By: DEON Acetaminophen (Acetaminophen 325 Mg Tablet) 650 mg PO TID [facility] Last Admin: 08/05/22 08:16 Dose: 650 mg Documented By: LUIS Acyclovir (Acyclovir 200 Mg Capsule) 400 mg PO BID [facility] Last Admin: 08/05/22 08:16 Dose: 400 mg Documented By: LUIS Albuterol Sulfate (Albuterol Sulfate 90 Mcg 8 Gm Inhaler) 2 puff INHALE RQ4H PRN PRN Reason: sob Last Admin: 08/05/22 08:52 Dose: 2 puff Documented By: LUIS Docusate Sodium (Docusate Sodium 100 Mg Capsule) 100 mg PO DAILY PRN PRN Reason: Constipation Famotidine (Famotidine/Pf 20 Mg/2 Ml Vial) 20 mg IVPUSH BID [facility] Last Admin: 08/05/22 08:16 Dose: 20 mg Documented By: LUIS Dextrose/Lactated Ringer's (D5lr) 1,000 mls @ 100 mls/hr IVCONT .Q10H [facility] Last Admin: 08/05/22 10:45 Dose: 100 mls/hr Documented By: LUIS Lidocaine (Lidocaine 4 % Patch Adh..Patch) 2 patch TRANSDERMA DAILY [facility]; Protocol Last Admin: 08/05/22 08:20 Dose: Not Given Documented By: LUIS Non-Admin Reason: Patient Refused Loratadine (Loratadine 10 Mg Tablet) 10 mg PO DAILY PRN PRN Reason: allergy Last Admin: 08/04/22 16:34 Dose: 10 mg Documented By: KRISTAN Lorazepam (Lorazepam 0.5 Mg Tablet) 0.5 mg PO DAILY PRN PRN Reason: anxiety Non-Formulary Medication (Umeclidinium-Vilanterol [Anoro Ellipta]) 1 inhalation INHALE DAILY [facility] Ondansetron HCl (Ondansetron Hcl 4 Mg/2 Ml Vial) 4 mg IVPUSH Q6H PRN PRN Reason: Nausea and Vomiting Last Admin: 08/04/22 12:24 Dose: 4 mg Documented By: CAYDEN Oxycodone HCl (Oxycodone Hcl Immed Release 5 Mg Tablet) 5 mg PO Q6H PRN PRN Reason: Pain, Moderate(Pain Scale 4-6) Last Admin: 08/05/22 13:41 Dose: 5 mg Documented By: MARY Paroxetine HCl (Paroxetine Hcl 20 Mg Tablet) 20 mg PO DAILY [facility] Last Admin: 08/05/22 08:16 Dose: 20 mg Documented By: LUIS Pharmacy Consult (Consult Rx Perform Med Rec) 1 each MISCELLANE ONCE PRN PRN Reason: Consult order Sodium Chloride (0.9 % Sodium Chloride Flush 3 Ml Syringe) 3 ml IVFLUSH QSHIFT [facility] Last Admin: 08/05/22 15:01 Dose: Not Given Documented By: LUIS Non-Admin Reason: IV Running Trazodone HCl (Trazodone Hcl 100 Mg Tablet) 100 mg PO BEDTIME [facility] Last Admin: 08/04/22 19:57 Dose: 100 mg Documented By: TARYN Labs 08/04/22 06:07 08/04/22 06:07 Labs: Laboratory Results - last 24 hr 08/04/22 15:18 Absolute Retic 0.049 Percent Retic 1.8 Immature Retic Fraction 19.8 H Retic Hgb Equivalent 35.7 H Assessment and Plan (1) Intractable vomiting: Status: Acute (2) Tobacco dependence: Status: Acute Plan 72-year-old female with asthma/COPD overlap, depression, hypothyroidism, non-Hodgkin lymphoma in remission last chemotherapy 5 years ago but still has a chemotherapy port in place, anxiety, peripheral artery disease, and who is a current every day 1 pack cigarette smoker to be observed for intractable nausea and vomiting. #Intractable nausea/vomiting- etiology unclear feels better less nausea and vomiting,question etiology ddx r/t small hiatal hernia, ?GERD, ?esophagitis, question cholecystitis normal lipase and LFTs, CT abdomen and pelvis showed mild inflammatory change between the pancreatic tail and left kidney, some deshaun cholecystic fluid, no stones ,thickened left adrenal Gland with some surrounding inflammatory change - due to fever and persistent intermittent abdominal pain will obtain abdominal ultrasound to rule out cholecystitis, continue cont.IV famotidine BID,iv Ondansetron prn - full liquid diet -Outpt follow up on hiatal hernia # mid to lower back and abdominal pain -not reproducible, UA unremarkable no urinary symptoms, normal LFTs, normal lipase -EKG NSR, no DIEGO or depressions, trop normal -CTA chest negative for acute abnormality including dissection, CT abdomen unremarkable continue analgesics and supportive care #Acute on chronic macrocytic anemia -4/10 Hgb 10.7, 6/5 HGB 7.9. MCV 127.2. Received 2 units PRBC through PCP -H/H stable.? MCV 105.8 -stool occult blood negative -ferritin elevated at 423. Vitamin B12>2000, folate 12.9 -Iron studies unremarkable, retic count mildly elevated likely due to anemia, LDH mildly elevated less likely hemolysis. - will need outpatient further workup question bone marrow exam will refer to outpatient oncology. #Asthma/COPD overlap -no acute exac, Continue maintenance inhalers, albuterol p.r.n. #Hypothyroidism -continue synthroid #Mood disorder -continue home meds # non-Hodgkin's lymphoma -in remission, last chemotherapy about 5 years ago.? Chemo port still in place, flushed monthly #Nicotine dependence -declines nrt -smoking cessation counseling DVT prophylaxis-SCPs Do not intubate due to persistent symptoms of abdominal pain and fevers change status to inpatient from observation patient will need continued inpatient stay due to nausea vomiting poor by mouth intake on IV fluids and analgesics and requiring further workup. Time Spent With Patient Time: Total time managing care of this patient today ____ minutes. Quality Stroke Does the patient have a stroke diagnosis?: No VTE Prior VTE?: No VTE Risk Level:: Medical - moderate - high VTE Device Contraindication: N/A - Device Ordered VTE Drug Contraindication: Treatment Not Indicated
[2022-08-05 15:13] VITALS: BP 131/60; PULSE 97; RESP 20; TEMP 37.5; O2SAT 92
[2022-08-05 18:45] LABS: Appearance Urine Clear; Color Urine Yellow; Glucose Urine UA Negative (Negative); Leukocyte Esterase Urine Negative (Negative); Nitrite Urine Negative (Negative); Specific Gravity - Urine 1.015 (1.005-1.025); UMIC TRIGGER UACC YES; Urine Blood Moderate (2+) (Negative); Urine Ketones Negative (Negative); Urine Protein Trace mg/dL (Neg-Trace)
[2022-08-05 18:50] LABS: Bacteria Urine Trace (None Seen); Hyaline Casts Urine 0-2 /LPF (0-2); Squamous Epithelial Cell Urine 0-2 /HPF (0-2); WBC Urine 0-5 /HPF (0-5)
[2022-08-05 19:31] VITALS: BP 125/59; PULSE 84; RESP 16; TEMP 36.7; O2SAT 98
[2022-08-05] MEDS: traZODone HCL 100 MG TABLET PO (20:36)
[2022-08-05 22:46] VITALS: RESP 18
[2022-08-06] VITALS: BP 131/53; PULSE 94; RESP 17; TEMP 36.8; O2SAT 95
[2022-08-06] MEDS: Acetaminophen 325 MG TABLET 650 MG PO ×2 (03:02→07:47)
[2022-08-06 03:07] VITALS: BP 118/57; PULSE 91; RESP 18; TEMP 36.7; O2SAT 95
[2022-08-06] MEDS: Dextrose 5 % and Lactated Ring 1,000 ML 100 ML IVCONT (06:17)
[2022-08-06 07:08] VITALS: BP 126/60; PULSE 100; RESP 18; TEMP 37.2; O2SAT 93
[2022-08-06] MEDS: Albuterol Sulfate 90 MCG 8 GM INHALER 2 PUFF INHALE (07:45)
[2022-08-06] MEDS: Famotidine/PF 20 MG/2 ML VIAL IVPUSH (07:46)
[2022-08-06] MEDS: Acyclovir 200 MG CAPSULE 400 MG PO (07:47)
[2022-08-06] MEDS: PARoxetine HCL 20 MG TABLET PO (07:47)
[2022-08-06] MEDS: Lidocaine 4 % Patch ADH..PATCH 2 PATCH TRANSDERMA (07:53)
[2022-08-06 12:00] VITALS: BP 143/61; PULSE 73; RESP 14; TEMP 36.3; O2SAT 96
--- NOTE | 2022-08-06 13:09 | P.DS_ITS ---
DS: Providers Provider Date of Service: 08/06/22 Date of admission: 08/05/22 15:05 Primary care physician: Burt Juarez MD DS: Diagnosis Discharge Diagnosis (1) Intractable vomiting: Status: Acute (2) Tobacco dependence: Status: Acute DS: Summary Hospital Course Hospital Course: history of presenting illness: Date of Service: 08/03/22 Attending physician on admission: Marisabel Sanchez Chief Complaint: nausea/vomiting 72-year-old female with asthma/COPD overlap, depression, hypothyroidism, non- Hodgkin lymphoma in remission last chemotherapy 5 years ago but still has a chemotherapy port in place, anxiety, peripheral artery disease, and who is a current every day 1 pack cigarette smoker who presents to the ED from her PCP office for evaluation bilateral thoracic back pain that radiates to the chest that started yesterday and has been worsening.? The patient was noted to be anemic with hemoglobin 7.2/hematocrit 22.7% yesterday and was transfused 2 units with improvement in H/H to 10.2/30.7% today.? However, today she has also developed intractable nausea and vomiting.? Since being in the ER, she has vomited 5 times.? She does state that she has not been able to tolerate p.o. in the ED. H/H was rechecked this evening and has dropped to 9.0/27.3%. MCV 105.8. Stool occult blood negative in theED. Last BM was this morning and was normal. She denies any fevers, chills, abdominal pain, dysuria, hematuria, increased urinary frequency, urgency, diarrhea, melena, hematochezia, hematemesis, shortness of breath, lightheadedness, palpitations.? She denies any history of similar symptoms.? In the ED, CXR was negative for any acute cardiopulmonary disease.? CTA chest negative for any PE and show stable biapical pleural parenchymal scarring and small right upper lobe nodule.? There is also new fat stranding noted in the left retroperitoneum surrounding the left adrenal gland and upper pole of the left kidney possibly related to known lymphoma but differential to include hemorrhage or infection.? General surgery was consulted who is recommending CT of the abdomen/pelvis to evaluate for any hematoma though suspicion was low for this.? CT abdomen/pelvis with contrast shows periportal edema and some pericholecystic fluid but no radiopaque gallstones.? There was no retroperitoneal hematoma or other evidence for blood loss requiring transfusion.? There is mild inflammatory change between the pancreatic tail left kidney though serum lipase is normal.? The left adrenal gland is thickened with some surrounding inflammatory change and there was also incidentally found small hiatal hernia and benign right renal cyst. No leukocytosis, renal function and lytes normal, trop below detectable limits. EKG showing NSR, rate 83 no DIEGO or depressions, unchanged from prior EKG. Pt to be observed for intractable n ausea/vomiting. hospital course: 72-year-old female with asthma/COPD overlap, depression, hypothyroidism, non- Hodgkin lymphoma in remission last chemotherapy 5 years ago but still has a chemotherapy port in place, anxiety, peripheral artery disease, and who is a current every day 1 pack cigarette smoker to be observed for intractable nausea and vomiting. # admitted to medical floor due to Intractable nausea/vomiting,and radiating abdominal and back pain patient had negative workup including CT abdomen and pelvis that showed mild inflammatory changes between the pancreatic tail and left kidney and some pericholecystic fluid, therefore an abdominal ultrasound obtained that showed normal gallbladder,-EKG NSR, no DIEGO or depressions, trop normal,CTA chest negative for acute abnormality including dissection, normal LFTs and lipase ,Received symptomatic treatment with IV analgesics and antiemetics patient responded well to treatment, diet was gradually advanced currently she is tolerating regular diet, pain has significantly improved and has no further symptoms of nausea ,vomiting therefore being discharged home. no acute etiology of above symptoms were found. ? #Acute on chronic macrocytic anemia on 05/31 Hgb 10.7, 6/5 HGB 7.9. MCV 127.2. Received 2 units PRBC? through PCP,H/H? improved and remained stable,stool occult blood negative,ferritin elevated at 423. Vitamin B12>2000, folate 12.9 -Iron studies unremarkable, retic count mildly elevated likely due to anemia, LDH? mildly elevated less likely hemolysis. will need outpatient further workup question bone marrow exam will refer to outpatient oncology. #Asthma/COPD overlap -no acute exac, Continue maintenance inhalers, albuterol p.r.n. #Hypothyroidism -continue synthroid #Mood disorder -continue home meds # non-Hodgkin's lymphoma -in remission, last chemotherapy about 5 years ago.? Chemo port still in place, flushed monthly #Nicotine dependence -declines nrt, smoking cessation counseling Time Spent with Patient Time attestation: Total time managing care of this patient today ____ minutes. Discharge coordination time: Greater than 30 minutes Quality: Safe Use of Opioids Does Pt have an Active Cancer Diagnosis on the Problem List?: No Quality: Stroke Does the patient have a stroke diagnosis?: No Physical Exam Vital Signs: Vital Signs: Last Vital Signs Temp 97.4 F 08/06/22 12:00 Pulse 73 08/06/22 12:00 Resp 14 08/06/22 12:00 BP 143/61 H 08/06/22 12:00 Pulse Ox 96 08/06/22 12:00 O2 Del Method Room Air 08/06/22 12:00 O2 Flow Rate 2 08/03/22 21:42 BMI result Body Mass Index 23.1 Const: Other: General? awake alert x3,in no acute distress.? anicteric sclera Neck? supple no JVD. CVS? regular rate rhythm, Respiratory lungs clear to auscultation, no respiratory distress, no wheeze, no rhonchi. Gastrointestinal abdomen soft, non tender, bowel sounds audible, no guarding , no rigidity. Extremities no edema. Neuro non focal Skin no rash Psyche appropriate affect DS: Data Data Completed and Pending Completed studies during hospitalization [Text1]: Procedures Introduction of Remdesivir Anti-infective into Peripheral Vein, Percutaneous Approach, [employer] 5 (03/10/21) Reposition Left Clavicle with Internal Fixation Device, Open Approach (07/15/21) Labs on day of discharge: Laboratory Results - last 24 hr 08/05/22 18:34 Urine Color Yellow Urine Appearance Clear Urine pH 7.0 Ur Specific [employer] 1.015 Urine Protein Trace Urine Glucose (UA) Negative Urine Ketones Negative Urine Blood Moderate (2+) H Urine Nitrite Negative Ur Leukocyte Esterase Negative Urine RBC 11-20 H Urine WBC 0-5 Ur Squamous Epith Cells 0-2 Urine Bacteria Trace Hyaline Casts 0-2 Discharge Plan Discharge Anticipated Discharge Date/Time: 08/06/22 13:05 Patient Disposition: Home, Self-Care Discharge Diagnosis: intractable nausea vomiting Referrals: Burt Juarez MD [Primary Care Provider] - 1 Week Discharge Medications: Continued cyanocobalamin (vitamin B-12) 1,000 mcg tablet 1 tab PO DAILY trazodone 100 mg tablet 100 mg PO BEDTIME acyclovir 400 mg tablet 400 mg PO BID levothyroxine 125 mcg tablet 125 mcg PO DAILY@0600 paroxetine HCl 20 mg tablet 20 mg PO DAILY lorazepam 0.5 mg tablet 0.5 mg PO DAILY PRN (Reason: anxiety) Anoro Ellipta 62.5-25 mcg/actuation blister with device 1 inh inhalation DAILY Qty: 60 11RF Discharge Orders: Discharge Order (Routine); Ordered 08/06/22 Ordered By: Giovanni Browning Diet: Advance to usual diet Activity on Discharge: As tolerated Stand Alone Forms: Patient Portal Discharge page Care Plan Goals: no further bout of nausea vomiting resume diet in regard to anemia follow-up with Dr. Juarez for further workup Health Concerns: continue all home medications as before Plan of Treatment: outpatient follow-up with primary care physician and oncologist Dr. Juarez call for appointment. Assessment: as above
--- NOTE | 2022-08-06 14:29 | MHC.CM.PN ---
IMM 08/05/22 Patient is discharged to home self care. She will self transport home. Her car is in the lot.
--- NOTE | 2022-08-06 14:30 | PC.NURSE ---
Right upper chest port access removed prior to discharge via [facility] policy
== END 2022-08-06 14:38 | disposition home or self-care (01) | DRG 392 ==
LOC: HO.ED 21:15 → HO.EDOVER 21:26 → HO.S3 08-04 07:46
PROVIDERS: Emergency Medicine; Internal Medicine; Admitting Provider Physician Assistant; Emergency Provider Emergency Medicine; PCP Internal Medicine Medical Oncology; Visit Provider Hospitalist
DX: R11.2 Nausea with vomiting, unspecified (principal); C85.90 Non-Hodgkin lymphoma, unspecified, unspecified site; J44.9 Chronic obstructive pulmonary disease, unspecified; E03.9 Hypothyroidism, unspecified; D53.9 Nutritional anemia, unspecified; F32.A Depression, unspecified; N28.1 Cyst of kidney, acquired; F41.9 Anxiety disorder, unspecified; F17.210 Nicotine dependence, cigarettes, uncomplicated; Z71.6 Tobacco abuse counseling; Z92.21 Personal history of antineoplastic chemotherapy; Z79.890 Hormone replacement therapy; Z79.899 Other long term (current) drug therapy
CPT/HCPCS: 36415; 36430; 71045; 71275; 74177; 76705; 80048; 80053; 80076; 81001; 82272; 82728; 82746; 83036; 83540; 83615; 83690; 84080; 84484; 85025; 85045; 85379; 86850; 86900; 86901; 86923; 93005; 99221; 99285; J1170; J1642; J2270; J2405; J2765; P9016; Q9967

== ENCOUNTER 2022-08-16 11:31 | Outpatient (REF) | payer MEDICARE, SELFPAY ==
[2022-08-16 12:23] LABS: Immature Retic Fraction 10.9 % (3.0-15.9); Mean Corpuscular HGB Conc 32.3 g/dl (31.0-35.0); Mean Corpuscular Hemoglobin 35.2 pg (27.0-33.0); Mean Corpuscular Volume 109.2 fL (80.0-98.0); NRBC Pct Auto 0.3 /100WBC (0.0-0.2); PLT CLUMP 1; Red Blood Count 2.84 X10*6/uL (4.20-5.50); Red Cell Distribution Width 24.3 % (11.0-16.0); Retic HGB Equivalent 37.2 pg (30.0-35.0); Reticulocyte Percent 1.1 % (0.5-1.8); Reticulocytes Absolute 0.032 X10*6/uL (0.026-0.095)
[2022-08-16 12:24] LABS: WBC ABN SCTR FOR CBC 1
[2022-08-16 13:02] LABS: Erythrocyte Sedimentation Rate 9 MM/HR (0-20)
[2022-08-16 13:03] LABS: Alanine Aminotransferase 7 U/L (0-31); Alkaline Phosphatase 141 U/L (39-117); Anion Gap 12 (12-20); Aspartate Amino Transferase 10 U/L (5-31); Bilirubin Total 0.6 mg/dL (0.0-1.0); Blood Urea Nitrogen 10 mg/dL (9-16); Calcium 9.6 mg/dL (8.4-10.2); Carbon Dioxide 25 mmol/L (22-29); Chloride 106 mmol/L (96-108); Estimated Glomerular Filt Rate 40; Glucose Random 98 mg/dL (60-115); Lactate Dehydrogenase 267 U/L (122-220); Potassium 4.4 mmol/L (3.3-5.1); Sodium 139 mmol/L (135-145); Total Protein 5.9 g/dL (6.5-8.0)
[2022-08-16 13:29] LABS: Atypical Lymphs Percent Manual 2 % (0-6); Band Neutrophils Percent 1 % (3-5); Basophils Percent Manual 4 % (0-2); Eosinophils Percent Manual 2 % (0-4); Lymphocytes Percent Manual 54 % (20-40); Monocytes Percent Manual 7 % (2-11); Neutrophils Percent Manual 30 % (45-73)
[2022-08-16 13:32] LABS: Acanthocytes 1+ (0-2) /OIF; Macrocytosis 2+ (15-30) /OIF; Platelet Estimate NORMAL (NORMAL); RBC Morphology NOTED; Tear Drop Cells 1+ (0-2) /OIF
[2022-08-16 13:34] LABS: Large Platelet PRESENT; Platelet Morphology Comment NOTED
[2022-08-16 14:09] LABS: Atypical Lymph Absolute Manual 0.1 x10*3/uL; Basophils Abs Manual 0.2 X10*3/uL (0.0-0.2); Eosinophils Absolute Manual 0.1 X10*3/uL (0.0-0.4); Lymphocytes Absolute Manual 3.2 X10*3/uL (1.2-4.9); Mean Platelet Volume 14.5 fL (9.4-12.3); Monocytes Absolute Manual 0.4 X10*3/uL (0.1-1.2); Neutrophils Absolute Manual 1.9 X10*3/uL (2.0-8.3); Platelet Count 283 X10*3/uL (160-400)
== END 2022-08-16 11:32 | disposition home or self-care (01) ==
LOC: HO.LAB 11:31
PROVIDERS: PCP Internal Medicine Medical Oncology; Visit Provider Internal Medicine Medical Oncology
DX: C85.10 Unspecified B-cell lymphoma, unspecified site (principal); E11.9 Type 2 diabetes mellitus without complications; I10 Essential (primary) hypertension; E78.5 Hyperlipidemia, unspecified; E03.9 Hypothyroidism, unspecified; D53.9 Nutritional anemia, unspecified; D70.9 Neutropenia, unspecified
CPT/HCPCS: 36415; 80053; 83615; 85007; 85025; 85027; 85045; 85652

== ENCOUNTER 2022-09-07 09:51 | Inpatient (IN) | payer MEDICARE, SELFPAY ==
[2022-09-07] VITALS (19 sets, daily range): BP systolic 83–144; BP diastolic 35–60; PULSE 75–95; RESP 14–22; TEMP 36.2–37.2; O2SAT 95–100; BMI 20.9; BMI 22.5
--- NOTE | ~2022-09-07 | XR_ITS ---
EXAMINATION: XR CHEST CLINICAL INFORMATION: Shortness of breath COMPARISON: Previous chest x-ray April 2022 TECHNIQUE: Frontal view of the chest was obtained. FINDINGS: The cardiac and mediastinal contours are stable. The lungs are well-inflated. The lungs are clear. No pleural effusion or pneumothorax. Right jugular port with tip projecting over the SVC. Postsurgical changes to the lower cervical spine. XR/XR chest 1V IMPRESSION: Well-inflated lungs. No evidence for acute disease in the chest.
--- NOTE | 2022-09-07 09:54 | ECG_ITS ---
Test Reason : SOB Blood Pressure : / mmHG Vent. Rate : 082 BPM Atrial Rate : 082 BPM P-R Int : 140 ms QRS Dur : 078 ms QT Int : 380 ms P-R-T Axes : 076 056 055 degrees QTc Int : 443 ms Normal sinus rhythm Normal ECG When compared with ECG of 03-AUG-2022 13:45, No significant change was found Referred By: Gogo Moralez Electronically Signed By:Burak Lozano
--- NOTE | 2022-09-07 09:59 | ED.SOB ---
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 She was recently in [place] for vacation when on Tuesday she was too weak and fatigued to do anything and this has persisted since. She states when she exerts herself is when she becomes SOB but denies SOB at rest. She denies chest pain, recent illnesses, cough, fevers, abdominal pain or nausea/vomiting or melena. MD elicited complaint: shortness of breath Pertinent past history: COPD and asthma Onset (ago): day(s) Timing: progressively worsening Severity: severe Exacerbating factors: exertion Relieving factors: rest Treatment prior to arrival: none Related Data Home oxygen amount: none Home Medications Medication Instructions Recorded Confirmed acyclovir 400 mg tablet 400 mg PO BID 01/31/20 09/07/22 levothyroxine 125 mcg tablet 125 mcg PO DAILY@0600 01/31/20 09/07/22 paroxetine HCl 20 mg tablet 20 mg PO DAILY 01/31/20 09/07/22 trazodone 100 mg tablet 100 mg PO BEDTIME 01/31/20 09/07/22 cyanocobalamin (vitamin B-12) 1 tab PO DAILY 07/15/21 09/07/22 1,000 mcg tablet lorazepam 0.5 mg tablet 0.5 mg PO DAILY PRN anxiety 03/01/22 09/07/22 Previous Rx's Medication Instructions Recorded umeclidinium 62.5 mcg-vilanterol 1 inh inhalation DAILY #60 ea 07/06/22 25 mcg/actuation powdr for inhalation (Anoro Ellipta) Allergies Allergy/AdvReac Type Severity Reaction Status Date / Time adhesive tape Allergy Unknown RASH Verified 09/07/22 10:00 bacitracin [Bacitracin] Allergy Unknown RASH Verified 09/07/22 10:00 Review of Systems Review of Systems: Yes all other systems are reviewed and are negative Constitutional: Constitutional: Reports fatigue and Reports lethargy Cardiovascular: Cardiovascular: Reports dyspnea on exertion Respiratory: Respiratory: Denies cough and Reports dyspnea on exertion Gastrointestinal: Gastrointestinal: Denies abdominal pain, Denies melena, Denies change in bowel habits and Denies change in stool character Genitourinary: Genitourinary: Denies hematuria Neurologic: Reports system reviewed and no additional complaints, except as documented Endocrine: Endocrine: Reports fatigue PMFSH Past Medical History Medical History Anxiety COPD (chronic obstructive pulmonary disease) COPD with asthma Depression Dyspnea Hypothyroidism Non-Hodgkin lymphoma in remission Tobacco dependence Surgical History H/O: hysterectomy History of salpingo-oophorectomy S/P angiogram of extremity (02/13/20) Family History Family History Father CAD (coronary artery disease) Social History Social History Household Members: None Housing: Apartment Do you presently have visiting nurse or other home services: No Alcohol intake: current Alcohol intake frequency: a few times a month Patient Tobacco Use Status: Current everyday Tobacco user Tobacco use type: Cigarette Cigarette Packs Per Day: 1 Cigarettes Per Day: 20.0 Years Smoked: 40 Smoked in Last 30 Days: Yes Second Hand Smoke Exposure: No Advance Directives: Yes Advance Directives on File: Yes Advance Directives Date on File: 07/16/21 service: No Current occupational status: retired Physical Exam Vital Signs: Vital Signs: Last Vital Signs Temp 98.3 F 09/07/22 12:54 Pulse 79 09/07/22 12:54 Resp 16 09/07/22 12:54 BP 107/36 L 09/07/22 12:54 Pulse Ox 99 09/07/22 12:24 O2 Del Method Room Air 09/07/22 12:24 BMI result Body Mass Index 20.9 Appearance: Alert. Oriented X3. No acute distress. Head: normocephalic, atraumatic. Neck: Normal inspection. Neck supple. CVS: Normal heart rate and rhythm. Pulses normal. Respiratory: No respiratory distress. Breath sounds normal. Abdomen: Soft and nontender. +BS x4 GI: - melena on digital rectal exa. Skin: Skin warm and dry. Pale skin color. Extremities: No lower extremity edema. No joint swelling. Neuro/psych: Oriented X 3. Normal speech and cognition. Resp: Effort & Inspection: normal respiratory effort and able to speak in complete sentences Auscultation: clear to auscultation bilaterally Cardio: Rate: regular rate Rhythm: regular rhythm Heart sounds: S1 normal heart sound present and S2 normal heart sound present GI: Inspection: Yes normal to inspection Palpation (GI): Soft to palpation, not firm, nontender and no guarding Course Reevaluation(s) Reevaluation #1: orthostatics + getting blood and fluids Medical Decision Making Medical Decision Making [facility] Narrative: 72 yo female with history of 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 Hgb dropped from 10 on 08/16 to 7.7 today 09/07 type and screen sent to transfuse 2 units admitting to follow blood counts post transfusion, heme/on consult. Differential Diagnosis Differential Diagnoses: The differential diagnosis associated with the presentation includes acute blood loss anemia (GI bleed), bone marrow suppression, iron deficiency anemia, B12 deficiency anemia, myelodysplastic syndrome due to chemotherapy Admission/Observation Consideration of admission/observation: Escalation of care including admission/observation considered symptomatic anemia requiring transfusion Consult Healthcare Provider Management of the patient was discussed with: Hospitalist and Drill Press Operator Numerical Control Dr. Juarez, Dr. Beltran, Dr. Watts hospitalist who accepts Lab Data [facility] Lab Attestation statement: I reviewed the patient's lab results. Hemoglobin 7.7 down from 10 on 08/16. Hct 23.7%, MCV of 109 evidence for macrocytic anemia with low normal retic counts No signs of electrolyte abnormalities. No signs of liver derangement. 09/07/22 10:20 09/07/22 10:20 Labs: Lab Results 09/07/22 09/07/22 09/07/22 Range/Units 10:20 10:20 10:20 WBC 5.2 (4.8-10.8) X10*3/uL RBC 2.16 L D (4.20-5.50) X10*6/uL Hgb 7.7 L D (12.0-16.0) g/dl Hct 23.7 L D (37.0-47.0) % MCV 109.7 H (80.0-98.0) fL MCH 35.6 H (27.0-33.0) pg MCHC 32.5 (31.0-35.0) g/dl RDW 26.6 H (11.0-16.0) % Plt Count 332 (160-400) X10*3/uL MPV Not Reportable Immature Gran % (Auto) 0.2 (0.0-0.4) % Neut % (Auto) 39.8 L (45-73) % Lymph % (Auto) 41.4 H (20-40) % [place] % (Auto) 14.1 H (2-11) % Eos % (Auto) 3.7 (0-4) % Baso % (Auto) 0.8 (0-2) % Lymph # (Auto) 2.2 (1.2-4.9) X10*3/uL [place] # (Auto) 0.7 (0.1-1.2) X10*3/uL Eos # (Auto) 0.2 (0.0-0.4) X10*3/uL Baso # (Auto) 0.0 (0.0-0.2) X10*3/uL Abs Immat Gran (auto) 0.01 (0.00-0.03) X10*3/uL Absolute Neuts (auto) 2.1 (2.0-8.3) x10*3/uL Absolute Nucleated RBC 0.040 H (0.0-0.012) X10*3/uL Nucleated RBC % (auto) 0.8 H (0.0-0.2) /100WBC Smear Tech's Comments VERIFIED Absolute Retic 0.031 (0.026-0.095) X10*6/uL Percent Retic 1.5 (0.5-1.8) % Immature Retic Fraction 11.1 (3.0-15.9) % Retic Hgb Equivalent 32.6 (30.0-35.0) pg PT 13.7 H (10.0-13.1) SEC INR 1.2 H (0.9-1.1) APTT 28.2 (26.0-36.4) SEC Sodium 144 (135-145) mmol/L Potassium 3.8 (3.3-5.1) mmol/L Chloride 109 H (96-108) mmol/L Carbon Dioxide 26 (22-29) mmol/L Anion Gap 13 (12-20) BUN 8 L (9-16) mg/dL Creatinine 1.08 (0.5-1.4) mg/dL Estim Creat Clear Calc 40.6 Estimated GFR 50 Random Glucose 135 H (60-115) mg/dL Calcium 9.5 (8.4-10.2) mg/dL Magnesium 2.2 (1.6-2.6) mg/dL Total Bilirubin 0.5 (0.0-1.0) mg/dL Direct Bilirubin 0.2 (0.0-0.5) mg/dL AST 10 (5-31) U/L ALT 9 (0-31) U/L Alkaline Phosphatase 137 H (39-117) U/L Lactate Dehydrogenase 248 H (122-220) U/L Total Protein 5.6 L (6.5-8.0) g/dL Albumin 4.0 (3.5-5.0) g/dL Urine Color Urine Appearance Urine pH (5.0-9.0) Ur Specific [place] (1.005-1.025) Urine Protein (Neg-Trace) mg/dL Urine Glucose (UA) (Negative) mg/dL Urine Ketones (Negative) mg/dL Urine Blood (Negative) Urine Nitrite (Negative) Ur Leukocyte Esterase (Negative) Urine RBC (0-2) /HPF Urine WBC (0-5) /HPF Ur Squamous Epith Cells (0-2) /HPF Calcium Oxalate Crystal Urine Bacteria (None Seen) Hyaline Casts (0-2) /LPF Stool Occult Blood (NEGATIVE) Blood Type Antibody Screen Crossmatch 09/07/22 09/07/22 09/07/22 Range/Units 10:20 10:37 11:50 WBC (4.8-10.8) X10*3/uL RBC (4.20-5.50) X10*6/uL Hgb (12.0-16.0) g/dl Hct (37.0-47.0) % MCV (80.0-98.0) fL MCH (27.0-33.0) pg MCHC (31.0-35.0) g/dl RDW (11.0-16.0) % Plt Count (160-400) X10*3/uL MPV Immature Gran % (Auto) (0.0-0.4) % Neut % (Auto) (45-73) % Lymph % (Auto) (20-40) % [place] % (Auto) (2-11) % Eos % (Auto) (0-4) % Baso % (Auto) (0-2) % Lymph # (Auto) (1.2-4.9) X10*3/uL [place] # (Auto) (0.1-1.2) X10*3/uL Eos # (Auto) (0.0-0.4) X10*3/uL Baso # (Auto) (0.0-0.2) X10*3/uL Abs Immat Gran (auto) (0.00-0.03) X10*3/uL Absolute Neuts (auto) (2.0-8.3) x10*3/uL Absolute Nucleated RBC (0.0-0.012) X10*3/uL Nucleated RBC % (auto) (0.0-0.2) /100WBC Smear Tech's Comments Absolute Retic (0.026-0.095) X10*6/uL Percent Retic (0.5-1.8) % Immature Retic Fraction (3.0-15.9) % Retic Hgb Equivalent (30.0-35.0) pg PT (10.0-13.1) SEC INR (0.9-1.1) APTT Cancelled (26.0-36.4) SEC Sodium (135-145) mmol/L Potassium (3.3-5.1) mmol/L Chloride (96-108) mmol/L Carbon Dioxide (22-29) mmol/L Anion Gap (12-20) BUN (9-16) mg/dL Creatinine (0.5-1.4) mg/dL Estim Creat Clear Calc Estimated GFR Random Glucose (60-115) mg/dL Calcium (8.4-10.2) mg/dL Magnesium (1.6-2.6) mg/dL Total Bilirubin (0.0-1.0) mg/dL Direct Bilirubin (0.0-0.5) mg/dL AST (5-31) U/L ALT (0-31) U/L Alkaline Phosphatase (39-117) U/L Lactate Dehydrogenase (122-220) U/L Total Protein (6.5-8.0) g/dL Albumin (3.5-5.0) g/dL Urine Color Yellow Urine Appearance Cloudy Urine pH 6.5 (5.0-9.0) Ur Specific [place] 1.025 (1.005-1.025) Urine Protein 30 (1+) H (Neg-Trace) mg/dL Urine Glucose (UA) Negative (Negative) mg/dL Urine Ketones Trace (Negative) mg/dL Urine Blood Trace H (Negative) Urine Nitrite Negative (Negative) Ur Leukocyte Esterase Negative (Negative) Urine RBC 3-5 H (0-2) /HPF Urine WBC 0-5 (0-5) /HPF Ur Squamous Epith Cells 11-20 (0-2) /HPF Calcium Oxalate Crystal Present Urine Bacteria 3+ (None Seen) Hyaline Casts 3-5 (0-2) /LPF Stool Occult Blood (NEGATIVE) Blood Type O Positive Antibody Screen NEGATIVE Crossmatch See Detail 09/07/22 Range/Units 11:50 WBC (4.8-10.8) X10*3/uL RBC (4.20-5.50) X10*6/uL Hgb (12.0-16.0) g/dl Hct (37.0-47.0) % MCV (80.0-98.0) fL MCH (27.0-33.0) pg MCHC (31.0-35.0) g/dl RDW (11.0-16.0) % Plt Count (160-400) X10*3/uL MPV Immature Gran % (Auto) (0.0-0.4) % Neut % (Auto) (45-73) % Lymph % (Auto) (20-40) % [place] % (Auto) (2-11) % Eos % (Auto) (0-4) % Baso % (Auto) (0-2) % Lymph # (Auto) (1.2-4.9) X10*3/uL [place] # (Auto) (0.1-1.2) X10*3/uL Eos # (Auto) (0.0-0.4) X10*3/uL Baso # (Auto) (0.0-0.2) X10*3/uL Abs Immat Gran (auto) (0.00-0.03) X10*3/uL Absolute Neuts (auto) (2.0-8.3) x10*3/uL Absolute Nucleated RBC (0.0-0.012) X10*3/uL Nucleated RBC % (auto) (0.0-0.2) /100WBC Smear Tech's Comments Absolute Retic (0.026-0.095) X10*6/uL Percent Retic (0.5-1.8) % Immature Retic Fraction (3.0-15.9) % Retic Hgb Equivalent (30.0-35.0) pg PT (10.0-13.1) SEC INR (0.9-1.1) APTT (26.0-36.4) SEC Sodium (135-145) mmol/L Potassium (3.3-5.1) mmol/L Chloride (96-108) mmol/L Carbon Dioxide (22-29) mmol/L Anion Gap (12-20) BUN (9-16) mg/dL Creatinine (0.5-1.4) mg/dL Estim Creat Clear Calc Estimated GFR Random Glucose (60-115) mg/dL Calcium (8.4-10.2) mg/dL Magnesium (1.6-2.6) mg/dL Total Bilirubin (0.0-1.0) mg/dL Direct Bilirubin (0.0-0.5) mg/dL AST (5-31) U/L ALT (0-31) U/L Alkaline Phosphatase (39-117) U/L Lactate Dehydrogenase (122-220) U/L Total Protein (6.5-8.0) g/dL Albumin (3.5-5.0) g/dL Urine Color Urine Appearance Urine pH (5.0-9.0) Ur Specific [place] (1.005-1.025) Urine Protein (Neg-Trace) mg/dL Urine Glucose (UA) (Negative) mg/dL Urine Ketones (Negative) mg/dL Urine Blood (Negative) Urine Nitrite (Negative) Ur Leukocyte Esterase (Negative) Urine RBC (0-2) /HPF Urine WBC (0-5) /HPF Ur Squamous Epith Cells (0-2) /HPF Calcium Oxalate Crystal Urine Bacteria (None Seen) Hyaline Casts (0-2) /LPF Stool Occult Blood NEGATIVE (NEGATIVE) Blood Type Antibody Screen Crossmatch Independent Interpretation I performed an independent interpretation of an: EKG and Plain X-Ray Interpretation: EKG with normal sinus rhythm, HR 82 bpm, normal UT interval, normal QTc, no ST segment elevations or depressions CXR clear lungs, no infiltrate Radiology Impression Discussion of test interpretation with radiology: I have reviewed the radiologist's reading. Radiologist Impression: XR/XR chest 1V IMPRESSION: Well-inflated lungs. No evidence for acute disease in the chest. Independent Historian Clinical information obtained from an independent historian. History obtained from or confirmed by: Other (PCP Dr. Juarez) External Record Review External record reviewed: Office record, Outpatient record, Prior outpatient labs and Prior outpatient radiology Chronic Conditions Patient?s care impacted by: Other (hx lymphoma, COPD) Critical Care Time Critical Care Time Critical Care Time: Yes Total Critical Care Time: 44 Attestation: I have personally provided critical care time exclusive of time spent on separately billable procedures. Time includes review of lab data, radiology results, discussion with consultants, and monitoring for potential decompensation. Intervention performed as documented. Discharge Plan Discharge Clinical Impression: Symptomatic anemia, Orthostatic hypotension Patient Disposition: Admitted As Inpatient
[2022-09-07 10:30] LABS: Basophils Percent Auto 0.8 % (0-2); Eosinophils Absolute Auto 0.2 X10*3/uL (0.0-0.4); Eosinophils Percent Auto 3.7 % (0-4); Hematocrit 23.7 % (37.0-47.0); Imm Gran Abs Auto 0.01 X10*3/uL (0.00-0.03); Imm Gran Pct Auto 0.2 % (0.0-0.4); Immature Retic Fraction 11.1 % (3.0-15.9); Lymphocytes Absolute Auto 2.2 X10*3/uL (1.2-4.9); Lymphocytes Percent Auto 41.4 % (20-40); MANUAL DIFF FLAG SCAN; Mean Corpuscular HGB Conc 32.5 g/dl (31.0-35.0); Mean Corpuscular Hemoglobin 35.6 pg (27.0-33.0); Mean Corpuscular Volume 109.7 fL (80.0-98.0); Monocytes Absolute Auto 0.7 X10*3/uL (0.1-1.2); Monocytes Percent Auto 14.1 % (2-11); NRBC Pct Auto 0.8 /100WBC (0.0-0.2); Neutrophils Absolute Auto 2.1 x10*3/uL (2.0-8.3); Neutrophils Percent Auto 39.8 % (45-73); PLT CLUMP 1; Red Blood Count 2.16 X10*6/uL (4.20-5.50); Red Cell Distribution Width 26.6 % (11.0-16.0); Retic HGB Equivalent 32.6 pg (30.0-35.0); Reticulocyte Percent 1.5 % (0.5-1.8); Reticulocytes Absolute 0.031 X10*6/uL (0.026-0.095); SCAN SMEAR FLAG 1
[2022-09-07 10:32] LABS: Hemoglobin 7.7 g/dl (12.0-16.0); White Blood Count 5.2 X10*3/uL (4.8-10.8)
[2022-09-07 10:34] LABS: INTERNATIONAL NORM RATIO 1.2 (0.9-1.1); Prothrombin Time 13.7 SEC (10.0-13.1)
[2022-09-07 10:37] LABS: Partial Thromboplastin Time 28.2 SEC (26.0-36.4)
[2022-09-07 10:45] LABS: Alanine Aminotransferase 9 U/L (0-31); Alkaline Phosphatase 137 U/L (39-117); Anion Gap 13 (12-20); Aspartate Amino Transferase 10 U/L (5-31); Bilirubin Direct 0.2 mg/dL (0.0-0.5); Bilirubin Total 0.5 mg/dL (0.0-1.0); Blood Urea Nitrogen 8 mg/dL (9-16); Calcium 9.5 mg/dL (8.4-10.2); Carbon Dioxide 26 mmol/L (22-29); Chloride 109 mmol/L (96-108); Creatinine Clr Calc Pharmacy 40.6; Estimated Glomerular Filt Rate 50; Glucose Random 135 mg/dL (60-115); Lactate Dehydrogenase 248 U/L (122-220); Magnesium 2.2 mg/dL (1.6-2.6); Potassium 3.8 mmol/L (3.3-5.1); Sodium 144 mmol/L (135-145); Total Protein 5.6 g/dL (6.5-8.0)
[2022-09-07 10:50] LABS: Platelet Count 332 X10*3/uL (160-400)
[2022-09-07 10:51] LABS: SLIDE REVIEW VERIFIED
[2022-09-07 12:06] LABS: Appearance Urine Cloudy; Color Urine Yellow; Glucose Urine UA Negative (Negative); Leukocyte Esterase Urine Negative (Negative); Nitrite Urine Negative (Negative); PH 6.5 (5.0-9.0); Specific Gravity - Urine 1.025 (1.005-1.025); UMIC TRIGGER UACC YES; Urine Blood Trace (Negative); Urine Ketones Trace mg/dL (Negative); Urine Protein 30 (1+) mg/dL (Neg-Trace)
[2022-09-07 12:09] LABS: OBS Int Ctl Valid YES; OBS1 NEGATIVE (NEGATIVE)
[2022-09-07 12:19] LABS: Bacteria Urine 3+ (None Seen); Calcium Oxalate Crystals Urine Present; WBC Urine 0-5 /HPF (0-5)
--- NOTE | 2022-09-07 12:50 | PC.NURSE ---
PRBC INFUSING, NO DISTRESS NOTED VSS
--- NOTE | 2022-09-07 12:57 | PHA.MEDREC ---
Pharmacy Consult ? Medication Reconciliation Pharmacy has completed the medication reconciliation.
--- NOTE | 2022-09-07 14:44 | P.HPHOSP_ITS ---
History of Present Illness Date of Service: 09/07/22 Chief Complaint: weakness 72-year-old woman with history B-cell lymphoma status post chemotherapy and bone marrow transplant, now in remission presenting to the ER with complaints increased shortness of breath weakness and fatigue. She reported that she was recently in [place] for vacation but she was unable to do anything and I had the fatigue has persisted ever since. She also reported Diarrhea since before May, and has a chronically poor appetite. She reported every time she does anything she gets short of breath. She denied fever, chills, recent illness, sick contacts, chest pain, nausea, vomiting, diarrhea. Chest x-ray was negative for consolidation effusion. H&H was low at 7.7 and 23.7. Stool occult negative. In the ER she received a dose of Ativan, Zofran, Tylenol and 1 L of IV fluid, 2 units of packed red blood cells was ordered. She will be admitted for further management and treatment of severe symptomatic anemia. Review of Systems Review of Systems: Denies any recent fever chills or decrease in appetite respiratory denies any shortness of breath coverage production cardiovascular Denied chest pain gastrointestinal denies any dysphagia abdominal pain nausea vomiting or diarrhea genitourinary denies any dysuria frequency or hematuria musculoskeletal denies any joint pain or swelling neuropsych denies any weakness or seizures all other systems reviewed are negative [facility] Medical History Anxiety COPD (chronic obstructive pulmonary disease) COPD with asthma Depression Dyspnea Hypothyroidism Non-Hodgkin lymphoma in remission Tobacco dependence Family History Father CAD (coronary artery disease) Surgical History H/O: hysterectomy History of salpingo-oophorectomy S/P angiogram of extremity (02/13/20) Social History Household Members: None Housing: Apartment Do you presently have visiting nurse or other home services: No Alcohol intake: current Alcohol intake frequency: a few times a month Patient Tobacco Use Status: Current everyday Tobacco user Tobacco use type: Cigarette Cigarette Packs Per Day: 1 Cigarettes Per Day: 20.0 Years Smoked: 40 Smoked in Last 30 Days: Yes Second Hand Smoke Exposure: No Advance Directives: Yes Advance Directives on File: Yes Advance Directives Date on File: 07/16/21 service: No Current occupational status: retired Meds Allergies Allergy/AdvReac Type Severity Reaction Status Date / Time adhesive tape Allergy Unknown RASH Verified 09/07/22 10:00 bacitracin [Bacitracin] Allergy Unknown RASH Verified 09/07/22 10:00 Active Medications: Current Medications Pharmacy Consult (Consult Rx Perform Med Rec) 1 each MISCELLANE ONCE PRN PRN Reason: Consult order Home Medications Medication Instructions Recorded Confirmed Last Taken Type acyclovir 400 mg tablet 400 mg PO BID 01/31/20 09/07/22 08/03/22 History levothyroxine 125 mcg tablet 125 mcg PO DAILY@0600 01/31/20 09/07/22 08/03/22 History paroxetine HCl 20 mg tablet 20 mg PO DAILY 01/31/20 09/07/22 08/03/22 History trazodone 100 mg tablet 100 mg PO BEDTIME 01/31/20 09/07/22 08/02/22 History cyanocobalamin (vitamin B-12) 1 tab PO DAILY 07/15/21 09/07/22 08/03/22 History 1,000 mcg tablet lorazepam 0.5 mg tablet 0.5 mg PO DAILY PRN anxiety 03/01/22 09/07/22 07/27/22 History Physical Exam Vital Signs and Narrative: Vital Signs: Last Vital Signs Temp 98.5 F 09/07/22 14:38 Pulse 77 09/07/22 14:38 Resp 18 09/07/22 14:38 BP 112/40 L 09/07/22 14:38 Pulse Ox 99 09/07/22 14:38 O2 Del Method Room Air 09/07/22 14:38 BMI result Body Mass Index 20.9 Appearing in no acute distress head is normocephalic atraumatic eyes pupils are PERRLA sclera is anicteric mouth throat mucous membranes are intact and moist neck is supple no lymphadenopathy, no JVD noted lung sounds are clear to auscultation heart regular rate rhythm, clear S1, S2 positive bowel sounds, abdomen is soft, nontender neuro patient is alert x3, no focal deficits Results Labs 09/07/22 10:20 07/18/23 10:20 Labs: Laboratory Results - last 24 hr 09/07/22 09/07/22 09/07/22 10:20 10:20 10:20 MCV 109.7 H MCH 35.6 H MCHC 32.5 RDW 26.6 H Plt Count 332 MPV Not Reportable Immature Gran % (Auto) 0.2 Neut % (Auto) 39.8 L Lymph % (Auto) 41.4 H [place] % (Auto) 14.1 H Eos % (Auto) 3.7 Baso % (Auto) 0.8 Lymph # (Auto) 2.2 [place] # (Auto) 0.7 Eos # (Auto) 0.2 Baso # (Auto) 0.0 Abs Immat Gran (auto) 0.01 Absolute Neuts (auto) 2.1 Absolute Nucleated RBC 0.040 H Nucleated RBC % (auto) 0.8 H Smear Tech's Comments VERIFIED Absolute Retic 0.031 Percent Retic 1.5 Immature Retic Fraction 11.1 Retic Hgb Equivalent 32.6 PT 13.7 H INR 1.2 H APTT 28.2 Anion Gap 13 Estim Creat Clear Calc 40.6 Estimated GFR 50 Random Glucose 135 H Calcium 9.5 Magnesium 2.2 Total Bilirubin 0.5 Direct Bilirubin 0.2 AST 10 ALT 9 Alkaline Phosphatase 137 H Lactate Dehydrogenase 248 H Total Protein 5.6 L Albumin 4.0 Urine Color Urine Appearance Urine pH Ur Specific [place] Urine Protein Urine Glucose (UA) Urine Ketones Urine Blood Urine Nitrite Ur Leukocyte Esterase Urine RBC Urine WBC Ur Squamous Epith Cells Calcium Oxalate Crystal Urine Bacteria Hyaline Casts Stool Occult Blood Blood Type Antibody Screen Crossmatch 09/07/22 09/07/22 09/07/22 10:20 10:37 11:50 MCV MCH MCHC RDW Plt Count MPV Immature Gran % (Auto) Neut % (Auto) Lymph % (Auto) [place] % (Auto) Eos % (Auto) Baso % (Auto) Lymph # (Auto) [place] # (Auto) Eos # (Auto) Baso # (Auto) Abs Immat Gran (auto) Absolute Neuts (auto) Absolute Nucleated RBC Nucleated RBC % (auto) Smear Tech's Comments Absolute Retic Percent Retic Immature Retic Fraction Retic Hgb Equivalent PT INR APTT Cancelled Anion Gap Estim Creat Clear Calc Estimated GFR Random Glucose Calcium Magnesium Total Bilirubin Direct Bilirubin AST ALT Alkaline Phosphatase Lactate Dehydrogenase Total Protein Albumin Urine Color Yellow Urine Appearance Cloudy Urine pH 6.5 Ur Specific [place] 1.025 Urine Protein 30 (1+) H Urine Glucose (UA) Negative Urine Ketones Trace Urine Blood Trace H Urine Nitrite Negative Ur Leukocyte Esterase Negative Urine RBC 3-5 H Urine WBC 0-5 Ur Squamous Epith Cells 11-20 Calcium Oxalate Crystal Present Urine Bacteria 3+ Hyaline Casts 3-5 Stool Occult Blood Blood Type O Positive Antibody Screen NEGATIVE Crossmatch See Detail 09/07/22 11:50 MCV MCH MCHC RDW Plt Count MPV Immature Gran % (Auto) Neut % (Auto) Lymph % (Auto) [place] % (Auto) Eos % (Auto) Baso % (Auto) Lymph # (Auto) [place] # (Auto) Eos # (Auto) Baso # (Auto) Abs Immat Gran (auto) Absolute Neuts (auto) Absolute Nucleated RBC Nucleated RBC % (auto) Smear Tech's Comments Absolute Retic Percent Retic Immature Retic Fraction Retic Hgb Equivalent PT INR APTT Anion Gap Estim Creat Clear Calc Estimated GFR Random Glucose Calcium Magnesium Total Bilirubin Direct Bilirubin AST ALT Alkaline Phosphatase Lactate Dehydrogenase Total Protein Albumin Urine Color Urine Appearance Urine pH Ur Specific [place] Urine Protein Urine Glucose (UA) Urine Ketones Urine Blood Urine Nitrite Ur Leukocyte Esterase Urine RBC Urine WBC Ur Squamous Epith Cells Calcium Oxalate Crystal Urine Bacteria Hyaline Casts Stool Occult Blood NEGATIVE Blood Type Antibody Screen Crossmatch Imaging Radiologist's Impressions: Impressions Chest X-Ray 09/07/22 11:12 IMPRESSION: Well-inflated lungs. No evidence for acute disease in the chest. Assessment and Plan (1) Symptomatic anemia: Status: Acute Plan 72-year-old woman with history of lymphoma status post chemotherapy and bone marrow transplant presenting with weakness and shortness of breath, found to be severely anemic Acute on chronic non blood loss symptomatic anemia History of myelodysplastic syndrome 2 units of packed red blood cells ordered in the ED, will check CBC post transfusion negative stool occult Hematology consultation Symptomatic management Hypotension Secondary to hypovolemia from anemia Check orthostatic blood pressures Continue packed red blood cell transfusions as necessary Diarrhea check stool studies and cdiff no recent abx use no electrolyte abnormalities Mental health Continue home medications Hypothyroidism Continue levothyroxine History of non-Hodgkin's lymphoma In remission DVT prophylaxis with pneumatic compression boots due to acute anemia Full code Patient requires likely to inpatient midnights for acute anemia requiring blood transfusion monitoring Time Spent With Patient Time: Total time managing care of this patient today ____ minutes. Quality Stroke Does the patient have a stroke diagnosis?: No VTE Prior VTE?: No VTE Risk Level:: Medical - moderate - high VTE Device Contraindication: N/A - Device Ordered VTE Drug Contraindication: Treatment Not Indicated
[2022-09-07] MEDS: 0.9 % Sodium Chloride 1,000 ML 999 ML IVCONT (15:12)
--- NOTE | 2022-09-07 17:19 | PM.HEMONCCN ---
Subjective - Subjective Chief complaint: Weakness, chronic diarrhea Patient: new to practice Consult date: 09/07/22 Requesting Physician: Dr. Juarez Primary Care Provider: Burt Juarez MD Medical Summary: Diagnosis: Macrocytic anemia Patient initially diagnosed with diffuse large B-cell lymphoma in January 2013, received 6 cycles of R-CHOP which he completed in April 2013. In June 2014 she had a recurrence with mass on the back. Biopsy revealed recurrent diffuse large B-cell lymphoma. She received salvage chemotherapy with RICE regimen followed by autologous stem cell transplantation. This was done at [facility]. Following that she was on ibrutinib maintenance for 2 years. 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 Subsequent PET-CT was notable for new FDG avid cervical, thoracic and abdominopelvic lymphadenopathy. She went on to receive car T-cell therapy in October 2017 at [facility]. She received lymphoid depleting chemotherapy with fludarabine and Cytoxan on 11/03 to 2017. She received Kymriah, car T-cell therapy which she tolerated quite well except for grade 2 neurotoxicity which resolved completely. (Dr Austen Fuller). HPI - Consult Narrative Reason for consult: Worsening macrocytic anemia Narrative: Merline Srinivasan is a 72 year old female with history of recurrent diffuse large B-cell lymphoma who was treated as detailed above. Her last treatment was with car T-cell therapy at [facility] in 2017. She has been in remission from her lymphoma but in the recent years has developed worsening macrocytosis as well as anemia. She reports weakness and fatigue. She did receive blood transfusion in July for anemia. She also reports chronic diarrhea that has been going on for months. She denies abdominal pain, nausea or emesis. She reports weight loss. She is not on any new medications. She denies fever or chills. She has not traveled outside the country. She has had multiple imaging studies this year, most recent CT abdomen/pelvis shows some thickening along the left adrenal gland but no evidence of lymphadenopathy or clear evidence of recurrent lymphoma. Review of Systems - Constitutional Reports as per HPI, Reports fatigue, Reports malaise, Reports weight loss - Cardiovascular Reports no additional cardiovascular complaints - Respiratory Reports no additional respiratory complaints - Gastrointestinal Reports no additional gastrointestinal complaints - Neurologic Reports no additional neurologic complaints Oncology Screenings - ECOG Performance Status ECOG Performance Status: 1 [facility] Medical History: Medical History (Last Reviewed 08/03/22 @ 21:37 by MARYANN Hager) Anemia Anxiety COPD (chronic obstructive pulmonary disease) COPD with asthma Depression Dyspnea Hypothyroidism Non-Hodgkin lymphoma in remission Tobacco dependence Family History: Family History (Last Reviewed 08/03/22 @ 21:37 by MARYANN Hager) Father CAD (coronary artery disease) Surgical History: Surgical History (Last Reviewed 08/03/22 @ 21:37 by MARYANN Hager) H/O: hysterectomy History of salpingo-oophorectomy S/P angiogram of extremity Onset Date: 02/13/20 Social History: Social History (Last Reviewed 08/03/22 @ 21:37 by MARYANN Hager) Living Situation History: Household Members: None Housing: Apartment Do you presently have visiting nurse or other home services: No Alcohol History Details: 1. How often do you have a drink containing alcohol?: b. Monthly or less 3. How often do you have six or more drinks on one occasion?: a. Never AUDIT-C Alcohol total score: 1 Currently Displaying Signs/Symptoms of Alcohol Withdrawal: No Tobacco History: Patient Tobacco Use Status: Current everyday Tobacco Tobacco use type: Cigarette Cigarette Packs Per Day: 1 Years Smoked: 40 Smoked in Last 30 Days: Yes Patient Interested in Nicotine Replacement: No Patient Given Instructions on How to Stop Smoking: Yes Date Education Initiated: 09/07/22 Second Hand Smoke Exposure: No Substance Use History: Use of substances other than those prescribed or required for medical reasons: No Currently Displaying Signs/Symptoms of Drug Intoxication Withdrawal: No Any prior treatment program specific to substance use: No Domestic Abuse History: Have you been hit, kicked, punched, or otherwise hurt by someone within the past year? If so, by whom?: No Do you feel safe in your current relationship?: No Are you made to feel afraid or neglected: No Advance Directives: Advance Directives: Yes Advance Directives on File: Yes Advance Directives Date on File: 07/16/21 Homicidal Assessment: Do you have thoughts of harming others: None Do you have a plan to hurt others: No Plan Nutrition Assessment: Recently lost weight without trying: No Eating poorly because of decreased appetite: No Nutrition Risks: No Nutritional Risk Patient : No : No Poor oral hygiene: No Occupation Assessmet: service: No Current occupational status: retired Home Medications and Allergies Current Medications: Current Medications Acetaminophen (Acetaminophen 325 Mg Tablet) 650 mg PO Q6H PRN PRN Reason: Pain, Mild (Pain Scale 1-3) Acyclovir (Acyclovir 200 Mg Capsule) 400 mg PO BID [facility] Cyanocobalamin (Cyanocobalamin (Vitamin B-12) 1,000 Mcg Tablet) 1,000 mcg PO DAILY [facility] Levothyroxine Sodium (Levothyroxine Sodium 125 Mcg Tablet) 125 mcg PO DAILY@0600 [facility] Lorazepam (Lorazepam 0.5 Mg Tablet) 0.5 mg PO DAILY PRN PRN Reason: anxiety Non-Formulary Medication (Umeclidinium-Vilanterol [Anoro Ellipta]) 1 inhalation INHALE DAILY [facility] Ondansetron HCl (Ondansetron Hcl 4 Mg/2 Ml Vial) 4 mg IVPUSH Q8H PRN PRN Reason: Nausea and Vomiting Paroxetine HCl (Paroxetine Hcl 20 Mg Tablet) 20 mg PO DAILY [facility] Pharmacy Consult (Consult Rx Perform Med Rec) 1 each MISCELLANE ONCE PRN PRN Reason: Consult order Sodium Chloride (0.9 % Sodium Chloride Flush 3 Ml Syringe) 3 ml IVFLUSH QSHIFT [facility] Last Admin: 09/07/22 15:11 Dose: Not Given Trazodone HCl (Trazodone Hcl 100 Mg Tablet) 100 mg PO BEDTIME [facility] Home Medications Medication Instructions Recorded Confirmed Type acyclovir 400 mg tablet 400 mg PO BID 01/31/20 09/07/22 History levothyroxine 125 mcg tablet 125 mcg PO DAILY@0600 01/31/20 09/07/22 History paroxetine HCl 20 mg tablet 20 mg PO DAILY 01/31/20 09/07/22 History trazodone 100 mg tablet 100 mg PO BEDTIME 01/31/20 09/07/22 History cyanocobalamin (vitamin B-12) 1 tab PO DAILY 07/15/21 09/07/22 History 1,000 mcg tablet lorazepam 0.5 mg tablet 0.5 mg PO DAILY PRN anxiety 03/01/22 09/07/22 History Allergies Allergy/AdvReac Type Severity Reaction Status Date / Time adhesive tape Allergy Unknown RASH Verified 09/07/22 10:00 bacitracin [Bacitracin] Allergy Unknown RASH Verified 09/07/22 10:00 Physical Exam Vital signs: Vital Signs Temp 98.5 F 09/07/22 16:54 Pulse 79 09/07/22 16:54 Resp 21 H 09/07/22 16:54 BP 119/58 L 09/07/22 16:54 Pulse Ox 99 09/07/22 16:54 O2 Del Method Room Air 09/07/22 16:54 Intake & Output 09/06/22 09/07/22 09/07/22 18:59 06:59 18:59 Intake Total 350 / 350 Balance 350 / 350 Intake: Intake (Blood Product) Amount 350 / 350 Red Blood Cells (E0382) Unit 350 / 350 [id number] Red Blood Cells (E0382) Unit 0 / 0 [id number] Other: Weight 55.2 kg Weight 55.2 kg - Constitutional Present: no acute distress, thin - Routine HEENT Exam Head: Present: normal inspection Eye: Present: normal appearance, conjunctivae pale, PERRL - Routine Neck Exam Present: supple. Absent: lymphadenopathy - Routine Respiratory Exam Present: CTAB - Routine Cardiovascular Exam Cardiovascular: Present: S1, S2 - Routine Abdominal Exam Present: soft - Routine Extremities Exam Absent: pedal edema - Routine Skin Exam Present: intact - Routine Neurological Exam Present: alert, oriented X3 Hem/Onc Consult Result - Labs CBC & Chem 7: 09/07/22 18:22 09/08/22 06:21 Labs: Short CBC 09/07/22 Range/Units 10:20 WBC 5.2 (4.8-10.8) X10*3/uL Hgb 7.7 L D (12.0-16.0) g/dl Hct 23.7 L D (37.0-47.0) % Plt Count 332 (160-400) X10*3/uL BMP 09/07/22 10:20 Sodium 144 Potassium 3.8 Chloride 109 H Carbon Dioxide 26 BUN 8 L Creatinine 1.08 Calcium 9.5 Liver Function 09/07/22 Range/Units 10:20 Total Bilirubin 0.5 (0.0-1.0) mg/dL Direct Bilirubin 0.2 (0.0-0.5) mg/dL AST 10 (5-31) U/L ALT 9 (0-31) U/L Alkaline Phosphatase 137 H (39-117) U/L Albumin 4.0 (3.5-5.0) g/dL Urine 09/07/22 Range/Units 11:50 Urine Color Yellow Urine Appearance Cloudy Urine pH 6.5 (5.0-9.0) Ur Specific [place] 1.025 (1.005-1.025) Urine Protein 30 (1+) H (Neg-Trace) mg/dL Urine Glucose (UA) Negative (Negative) mg/dL Assessment and Plan Patient Active problem list reviewed?: Yes (1) Macrocytic anemia Status: Chronic Assessment and plan: 1. This is a 72-year-old woman with past history significant for diffuse large B-cell lymphoma initially diagnosed in 2012 who has been in remission since 2018 after she received car T-cell therapy at [facility]. Since 2021 she has had worsening macrocytic anemia with severe reticulocytopenia. She has required blood transfusion on 3 different occasions since 2021. Imaging studies in the recent years have not shown evidence of recurrent lymphoma. Blood work does not show evidence of vitamin B12 deficiency. She has only anemia, her WBC and platelet counts are normal. Blood flow cytometry in February 2022 was negative. Differential diagnosis includes myelodysplastic syndrome, acquired pure red cell aplasia, paroxysmal nocturnal hemoglobinuria and rarely plasma cell dyscrasia. Some of hematological tests have been submitted. She will need diagnostic bone marrow aspiration/biopsy for further evaluation. Agree with blood transfusion for now. She reports symptoms of chronic diarrhea. She has had a recent colonoscopy, June 2022. Previously stool for C diff was negative. Further testing can be arranged as outpatient. I thank you very much for this consultation. - Time Spent With Patient Time Spent with Patient (in minutes): 25
[2022-09-07 18:32] LABS: Mean Corpuscular HGB Conc 33.6 g/dl (31.0-35.0); NRBC Pct Auto 0.5 /100WBC (0.0-0.2)
[2022-09-07 18:34] LABS: Hematocrit 32.4 % (37.0-47.0); Hemoglobin 10.9 g/dl (12.0-16.0); Mean Corpuscular Hemoglobin 33.4 pg (27.0-33.0); Mean Corpuscular Volume 99.4 fL (80.0-98.0); Mean Platelet Volume 14.4 fL (9.4-12.3); PLT CLUMP 1; Red Blood Count 3.26 X10*6/uL (4.20-5.50); Red Cell Distribution Width 22.8 % (11.0-16.0)
[2022-09-07 18:46] LABS: PLT ABN DIST 1
[2022-09-07 19:00] LABS: Platelet Count 272 X10*3/uL (160-400); White Blood Count 7.8 X10*3/uL (4.8-10.8)
[2022-09-07] MEDS: 0.9 % Sodium Chloride Flush 3 ML SYRINGE IVFLUSH (20:10)
[2022-09-07] MEDS: Acyclovir 200 MG CAPSULE 400 MG PO (20:10)
[2022-09-07] MEDS: traZODone HCL 100 MG TABLET PO (20:10)
[2022-09-08 03:41] VITALS: BP 120/56; PULSE 78; RESP 16; TEMP 36.8; O2SAT 94
[2022-09-08] MEDS: Levothyroxine Sodium 125 MCG TABLET PO (05:58)
[2022-09-08 07:14] VITALS: BP 110/65; PULSE 82; RESP 20; TEMP 36.6; O2SAT 96
[2022-09-08 07:40] LABS: Alanine Aminotransferase 11 U/L (0-31); Albumin Level 3.3 g/dL (3.5-5.0); Alkaline Phosphatase 123 U/L (39-117); Anion Gap 11 (12-20); Aspartate Amino Transferase 18 U/L (5-31); Bilirubin Total 0.7 mg/dL (0.0-1.0); Blood Urea Nitrogen 12 mg/dL (9-16); Calcium 8.6 mg/dL (8.4-10.2); Carbon Dioxide 24 mmol/L (22-29); Chloride 109 mmol/L (96-108); Creatinine Clr Calc Pharmacy 49.3; Estimated Glomerular Filt Rate > 60; Glucose Random 97 mg/dL (60-115); Potassium 4.1 mmol/L (3.3-5.1); Sodium 140 mmol/L (135-145); Total Protein 4.6 g/dL (6.5-8.0)
[2022-09-08 08:00] VITALS: BP 120/59; PULSE 67
[2022-09-08 08:17] VITALS: BP 114/56; PULSE 78
[2022-09-08 08:18] VITALS: BP 102/49; PULSE 84
--- NOTE | 2022-09-08 09:03 | MHC.CM.PN ---
IMM 09/08. Pt admitted with symptomatic anemia. Pt lives alone at home is independent/self-care, no services/DME. D/C plan to return home self-care. Pt has her own car and will self transport. PCP: Burt Ellis vax: x 4 moderna
[2022-09-08] MEDS: Acyclovir 200 MG CAPSULE 400 MG PO (09:34)
[2022-09-08] MEDS: Cyanocobalamin (Vitamin B-12) 1,000 MCG TABLET 1000 MCG PO (09:34)
[2022-09-08] MEDS: PARoxetine HCL 20 MG TABLET PO (09:35)
[2022-09-08] MEDS: 0.9 % Sodium Chloride Flush 3 ML SYRINGE IVFLUSH (09:35)
--- NOTE | 2022-09-08 10:34 | P.DS_ITS ---
DS: Providers Provider Date of Service: 09/08/22 Date of admission: 09/07/22 16:28 Date of discharge: 09/08/22 Primary care physician: Burt Juarez MD Consults: 09/07/22 12:54 Consult to Hematology / Oncology Stat Consulting Provider: Natividad Beltran Reason for consultation: aplastic anemia? Attending physician on discharge: Alhaji Ibrahim Discharging clinician: Niki Mccormack DS: Diagnosis Discharge Diagnosis (1) Macrocytic anemia: Status: Chronic (2) Symptomatic anemia: Status: Acute (3) Orthostatic hypotension: Status: Acute DS: Summary Hospital Course Hospital Course: From H&P on day of admission 72-year-old woman with history B-cell lymphoma status post chemotherapy and bone marrow transplant, now in remission presenting to the ER with complaints increased shortness of breath weakness and fatigue.? She reported that she was recently in [place] for vacation but she was unable to do anything and I had the fatigue has persisted ever since. She also reported Diarrhea since before May, and has a chronically poor appetite.? She reported every time she does anything she gets short of breath.? She denied fever, chills, recent illness, sick contacts, chest pain, nausea, vomiting, diarrhea.? Chest x-ray was negative for consolidation effusion.? H&H was low at 7.7 and 23.7.? Stool occult negative.? In the ER she received a dose of Ativan, Zofran, Tylenol and 1 L of IV fluid, 2 units of packed red blood cells was ordered.? She will be admitted for further management and treatment of severe symptomatic anemia. Acute on chronic anemia/acute symptomatic anemia stool occult negative. no evidence of acute blood loss. Received 2 units of blood with appropriate rise in H/ H. Dizziness, weakness, fatigue have resolved. Has been ambulating without difficulty. She was seen by onoclogy: Imaging studies in the recent years have not shown evidence of recurrent lymphoma. Blood work does not show evidence of vitamin B12 deficiency.? She has only anemia, her WBC and platelet counts are normal.? Blood flow cytometry in anuary 2022 was negative. Differential diagnosis includes myelodysplastic syndrome, acquired pure red cell aplasia, paroxysmal nocturnal hemoglobinuria and rarely plasma cell dyscrasia. Some of hematological tests have been submitted and are pending at the time of discharge. She will need diagnostic bone marrow aspiration/biopsy for further evaluation.She is instructed to follow up with oncology as outpatient. diarrhea. no recurrent diarrhea during hospitalization therefore C diff and stool panel not obtained. Can be obtained as outpatient if diarrhea persists Time Spent with Patient Time attestation: Total time managing care of this patient today ____ minutes. Discharge coordination time: Greater than 30 minutes Quality: Safe Use of Opioids Does Pt have an Active Cancer Diagnosis on the Problem List?: No Quality: Stroke Does the patient have a stroke diagnosis?: No Physical Exam Vital Signs: Vital Signs: Last Vital Signs Temp 97.8 F 09/08/22 07:14 Pulse 84 09/08/22 08:18 Resp 20 09/08/22 07:14 BP 102/49 L 09/08/22 08:18 Pulse Ox 96 09/08/22 07:14 O2 Del Method Room Air 09/08/22 07:14 BMI result Body Mass Index 22.5 Const: General: cooperative, comfortable, no acute distress, alert and awake Nutritional Appearance: average body habitus Orientation/consciousness: patient oriented x3 Resp: Effort & Inspection: normal respiratory effort, able to speak in complete sentences, no respiratory distress and no use of accessory muscles Cardio: Rate: regular rate Heart sounds: S1 normal heart sound present and S2 normal heart sound present GI: Inspection: No distended Palpation (GI): Soft to palpation and nontender Neuro: General: patient oriented x3 and CN's II-XI intact bilaterally Extrem: General: Yes no pedal edema DS: Data Data Completed and Pending Completed studies during hospitalization [Text1]: Procedures Introduction of Remdesivir Anti-infective into Peripheral Vein, Percutaneous Approach, [employer] 5 (03/10/21) Reposition Left Clavicle with Internal Fixation Device, Open Approach (07/15/21) Labs on day of discharge: Laboratory Results - last 24 hr 09/07/22 09/07/22 09/07/22 10:20 10:20 10:20 WBC RBC 2.16 L D Hgb 7.7 L D Hct MCV MCH MCHC RDW Plt Count 332 MPV Immature Gran % (Auto) 0.2 Neut % (Auto) 39.8 L Lymph % (Auto) 41.4 H [place] % (Auto) 14.1 H Eos % (Auto) 3.7 Baso % (Auto) 0.8 Lymph # (Auto) 2.2 [place] # (Auto) 0.7 Eos # (Auto) 0.2 Baso # (Auto) 0.0 Abs Immat Gran (auto) 0.01 Absolute Neuts (auto) 2.1 Absolute Nucleated RBC 0.040 H Nucleated RBC % (auto) 0.8 H Smear Tech's Comments VERIFIED Absolute Retic 0.031 Percent Retic 1.5 Immature Retic Fraction 11.1 Retic Hgb Equivalent 32.6 PT 13.7 H INR 1.2 H APTT 28.2 Sodium 144 Potassium 3.8 Chloride 109 H Carbon Dioxide 26 Anion Gap 13 BUN 8 L Creatinine 1.08 Estim Creat Clear Calc 40.6 Estimated GFR 50 Random Glucose 135 H Calcium 9.5 Magnesium 2.2 Total Bilirubin 0.5 Direct Bilirubin 0.2 AST 10 ALT 9 Alkaline Phosphatase 137 H Lactate Dehydrogenase 248 H Total Protein 5.6 L Albumin 4.0 Urine Color Urine Appearance Urine pH Ur Specific [place] Urine Protein Urine Glucose (UA) Urine Ketones Urine Blood Urine Nitrite Ur Leukocyte Esterase Urine RBC Urine WBC Ur Squamous Epith Cells Calcium Oxalate Crystal Urine Bacteria Hyaline Casts Stool Occult Blood Blood Type Antibody Screen Crossmatch 09/07/22 09/07/22 09/07/22 10:37 11:50 11:50 WBC RBC Hgb Hct MCV MCH MCHC RDW Plt Count MPV Immature Gran % (Auto) Neut % (Auto) Lymph % (Auto) [place] % (Auto) Eos % (Auto) Baso % (Auto) Lymph # (Auto) [place] # (Auto) Eos # (Auto) Baso # (Auto) Abs Immat Gran (auto) Absolute Neuts (auto) Absolute Nucleated RBC Nucleated RBC % (auto) Smear Tech's Comments Absolute Retic Percent Retic Immature Retic Fraction Retic Hgb Equivalent PT INR APTT Sodium Potassium Chloride Carbon Dioxide Anion Gap BUN Creatinine Estim Creat Clear Calc Estimated GFR Random Glucose Calcium Magnesium Total Bilirubin Direct Bilirubin AST ALT Alkaline Phosphatase Lactate Dehydrogenase Total Protein Albumin Urine Color Yellow Urine Appearance Cloudy Urine pH 6.5 Ur Specific [place] 1.025 Urine Protein 30 (1+) H Urine Glucose (UA) Negative Urine Ketones Trace Urine Blood Trace H Urine Nitrite Negative Ur Leukocyte Esterase Negative Urine RBC 3-5 H Urine WBC 0-5 Ur Squamous Epith Cells 11-20 Calcium Oxalate Crystal Present Urine Bacteria 3+ Hyaline Casts 3-5 Stool Occult Blood NEGATIVE Blood Type O Positive Antibody Screen NEGATIVE Crossmatch See Detail 09/07/22 09/08/22 09/08/22 18:22 06:21 06:21 WBC 7.8 RBC 3.26 L D Hgb 10.9 L D Hct 32.4 L D MCV 99.4 H D MCH 33.4 H MCHC 33.6 RDW 22.8 H Plt Count 272 MPV 14.4 H Immature Gran % (Auto) Neut % (Auto) Lymph % (Auto) [place] % (Auto) Eos % (Auto) Baso % (Auto) Lymph # (Auto) [place] # (Auto) Eos # (Auto) Baso # (Auto) Abs Immat Gran (auto) Absolute Neuts (auto) Absolute Nucleated RBC 0.040 H Nucleated RBC % (auto) 0.5 H Smear Tech's Comments Absolute Retic Percent Retic Immature Retic Fraction Retic Hgb Equivalent PT INR APTT Sodium 140 Potassium 4.1 Chloride 109 H Carbon Dioxide 24 Anion Gap 11 L BUN 12 Creatinine 0.89 Estim Creat Clear Calc 49.3 Estimated GFR > 60 Random Glucose 97 Calcium 8.6 D Magnesium 2.0 Total Bilirubin 0.7 Direct Bilirubin AST 18 ALT 11 Alkaline Phosphatase 123 H Lactate Dehydrogenase Total Protein 4.6 L Albumin 3.3 L Urine Color Urine Appearance Urine pH Ur Specific [place] Urine Protein Urine Glucose (UA) Urine Ketones Urine Blood Urine Nitrite Ur Leukocyte Esterase Urine RBC Urine WBC Ur Squamous Epith Cells Calcium Oxalate Crystal Urine Bacteria Hyaline Casts Stool Occult Blood Blood Type Antibody Screen Crossmatch Discharge Plan Discharge Anticipated Discharge Date/Time: 09/08/22 10:48 Patient Disposition: Home, Self-Care Discharge Diagnosis: symptomatic anemia Referrals: Burt Juarez MD [Primary Care Provider] - 1 Week Discharge Medications: Continued cyanocobalamin (vitamin B-12) 1,000 mcg tablet 1 tab PO DAILY trazodone 100 mg tablet 100 mg PO BEDTIME acyclovir 400 mg tablet 400 mg PO BID levothyroxine 125 mcg tablet 125 mcg PO DAILY@0600 paroxetine HCl 20 mg tablet 20 mg PO DAILY lorazepam 0.5 mg tablet 0.5 mg PO DAILY PRN (Reason: anxiety) Anoro Ellipta 62.5-25 mcg/actuation blister with device 1 inh inhalation DAILY Qty: 60 11RF Discharge Orders: Discharge Order (Routine); Ordered 09/08/22 Ordered By: Niki Mccormack Activity on Discharge: As tolerated Stand Alone Forms: Patient Portal Discharge page Other Ambulatory Orders: Complete Blood Count Auto Diff (Routine) Timeframe: [id number] Facility: [facility] - Location: Laboratory Ordered By: Niki Mccormack Care Plan Goals: see below Health Concerns: symptomatic anemia - improved with blood transfusion Plan of Treatment: repeat cbc on tuesday call to schedule follow up with oncologist call PCP if diarrhea persists Assessment: see discharge summary
[2022-09-08 10:56] LABS: HBS Num1 0.16 mIU/mL (0-7.99); HBc Num1 0.01 S/CO (0.00-0.79); HBsAGNum1 0.33 S/CO (0.00-0.99); Hepatitis A Antibody IgM 0.12 Index (0-0.79); Hepatitis B Core Antibody Nonreactive (Nonreactive); Hepatitis B Surface Antigen Negative (Negative); ~HepC Num1 0.01 S/CO (0.00-0.79); ~Hepatitis A Antibody IgM Nonreactive (Nonreactive); ~Hepatitis B Surface Antibody NONREACTIVE (Nonreactive); ~Hepatitis C Antibody Nonreactive (Nonreactive)
[2022-09-08 11:03] VITALS: BP 107/54; PULSE 63; RESP 18; TEMP 36.6; O2SAT 97
--- NOTE | 2022-09-08 11:33 | MHC.CM.PN ---
EMR reviewed and per MD rounds, pt is medically cleared for D/C home self-care, she will transport herself.
[2022-09-13 20:49] LABS: Haptoglobin 74 mg/dL (43-212)
[2022-09-14 14:33] LABS: Parvovirus B19 IgG <0.9; Parvovirus B19 IgM <0.9
[2022-09-15 12:04] LABS: IgA 6 mg/dL (70-320); IgM <5 mg/dL (50-300)
== END 2022-09-08 12:13 | disposition home or self-care (01) | DRG 812 ==
LOC: HO.ED 13:04 → HO.EDOVER 16:34 → HO.IMC 17:43
PROVIDERS: Internal Medicine; Physician Assistant; Admitting Provider Nurse Practitioner Acute Care; Emergency Provider Emergency Medicine; PCP Internal Medicine Medical Oncology; Visit Provider Physician Assistant Medical
DX: D53.9 Nutritional anemia, unspecified (principal); C91.11 Chronic lymphocytic leukemia of B-cell type in remission; Z94.81 Bone marrow transplant status; J44.9 Chronic obstructive pulmonary disease, unspecified; E86.1 Hypovolemia; I95.1 Orthostatic hypotension; E03.9 Hypothyroidism, unspecified; F32.A Depression, unspecified; K52.9 Noninfective gastroenteritis and colitis, unspecified; F17.210 Nicotine dependence, cigarettes, uncomplicated; Z71.6 Tobacco abuse counseling; Z92.21 Personal history of antineoplastic chemotherapy; Z79.890 Hormone replacement therapy; Z79.899 Other long term (current) drug therapy
CPT/HCPCS: 36415; 71045; 80048; 80053; 80076; 81001; 81003; 82272; 82668; 82784; 83010; 83615; 83735; 85025; 85027; 85045; 85610; 85730; 86334; 86704; 86706; 86709; 86747; 86803; 86850; 86900; 86901; 86923; 87340; 88184; 88185; 93005; 99285; P9016

== ENCOUNTER → 2022-09-07 09:54 | Outpatient (BNV) | payer MEDICARE, SELFPAY | PROVIDERS: Admitting Provider Nurse Practitioner Acute Care; Emergency Provider Emergency Medicine; PCP Internal Medicine Medical Oncology; Visit Provider Internal Medicine Cardiovascular Disease | DX: R06.02 Shortness of breath (principal) | CPT/HCPCS: 93010 ==

== ENCOUNTER → 2022-09-07 16:28 | Outpatient (BNV) | payer MEDICARE, SELFPAY | PROVIDERS: Admitting Provider Nurse Practitioner Acute Care; Emergency Provider Emergency Medicine; PCP Internal Medicine Medical Oncology; Visit Provider Internal Medicine | DX: C83.30 Diffuse large B-cell lymphoma, unspecified site (principal); D64.9 Anemia, unspecified | CPT/HCPCS: 99222 ==

== ENCOUNTER → 2022-09-07 16:28 | Outpatient (BNV) | payer MEDICARE, SELFPAY | PROVIDERS: Admitting Provider Nurse Practitioner Acute Care; Emergency Provider Emergency Medicine; PCP Internal Medicine Medical Oncology; Visit Provider Physician Assistant Medical | DX: D64.9 Anemia, unspecified (principal) | CPT/HCPCS: 99223; 99239 ==

== ENCOUNTER 2022-09-13 10:54 | Outpatient (REF) | payer MEDICARE, SELFPAY ==
[2022-09-13 11:52] LABS: Hematocrit 34.3 % (37.0-47.0)
[2022-09-13 11:54] LABS: Immature Retic Fraction 10.3 % (3.0-15.9); Mean Corpuscular HGB Conc 32.1 g/dl (31.0-35.0); Mean Corpuscular Hemoglobin 32.3 pg (27.0-33.0); Mean Corpuscular Volume 100.6 fL (80.0-98.0); Mean Platelet Volume 14.4 fL (9.4-12.3); PLT CLUMP 1; Red Blood Count 3.41 X10*6/uL (4.20-5.50); Red Cell Distribution Width 22.7 % (11.0-16.0); Retic HGB Equivalent 35.5 pg (30.0-35.0); Reticulocytes Absolute 0.034 X10*6/uL (0.026-0.095)
[2022-09-13 11:55] LABS: PLT ABN DIST 1; WBC ABN SCTR FOR CBC 1
[2022-09-13 11:56] LABS: Platelet Count 254 X10*3/uL (160-400); White Blood Count 6.4 X10*3/uL (4.8-10.8)
[2022-09-13 12:31] LABS: Atypical Lymph Absolute Manual 0.2 x10*3/uL; Atypical Lymphs Percent Manual 3 % (0-6); Band Neutrophils Percent 3 % (3-5); Basophils Abs Manual 0.3 X10*3/uL (0.0-0.2); Basophils Percent Manual 4 % (0-2); Eosinophils Absolute Manual 0.3 X10*3/uL (0.0-0.4); Eosinophils Percent Manual 4 % (0-4); Lymphocytes Absolute Manual 2.2 X10*3/uL (1.2-4.9); Lymphocytes Percent Manual 35 % (20-40); Monocytes Absolute Manual 0.8 X10*3/uL (0.1-1.2); Monocytes Percent Manual 12 % (2-11); Neutrophils Absolute Manual 2.7 X10*3/uL (2.0-8.3); Neutrophils Percent Manual 39 % (45-73)
[2022-09-13 12:32] LABS: Alanine Aminotransferase 10 U/L (0-31); Albumin Level 4.1 g/dL (3.5-5.0); Alkaline Phosphatase 138 U/L (39-117); Anion Gap 11 (12-20); Aspartate Amino Transferase 10 U/L (5-31); Bilirubin Total 0.4 mg/dL (0.0-1.0); Blood Urea Nitrogen 11 mg/dL (9-16); Calcium 9.8 mg/dL (8.4-10.2); Carbon Dioxide 27 mmol/L (22-29); Chloride 107 mmol/L (96-108); Estimated Glomerular Filt Rate 47; Glucose Random 117 mg/dL (60-115); Potassium 4.4 mmol/L (3.3-5.1); Sodium 141 mmol/L (135-145); Total Protein 5.9 g/dL (6.5-8.0)
[2022-09-13 12:33] LABS: Macrocytosis 1+ (5-14) /OIF; RBC Morphology NOTED
[2022-09-13 12:34] LABS: Acanthocytes 1+ (0-2) /OIF; Ovalocytes 1+ (5-14) /OIF
[2022-09-13 12:35] LABS: Tear Drop Cells 1+ (0-2) /OIF
[2022-09-13 12:36] LABS: Large Platelet PRESENT; Platelet Estimate NORMAL (NORMAL); Platelet Morphology Comment NOTED
== END 2022-09-13 10:55 | disposition home or self-care (01) ==
LOC: HO.LAB 10:54
PROVIDERS: PCP Internal Medicine Medical Oncology; Visit Provider Internal Medicine Medical Oncology
DX: C85.10 Unspecified B-cell lymphoma, unspecified site (principal); I10 Essential (primary) hypertension; E78.5 Hyperlipidemia, unspecified; D64.9 Anemia, unspecified
CPT/HCPCS: 36415; 80053; 85007; 85027; 85045

== ENCOUNTER → 2022-09-20 10:36 | Outpatient (BNV) | payer MEDICARE, SELFPAY | PROVIDERS: PCP Internal Medicine Medical Oncology; Visit Provider Internal Medicine | DX: D53.9 Nutritional anemia, unspecified (principal) | CPT/HCPCS: 38222; 99213; 99214 ==

== ENCOUNTER 2022-09-20 10:42 | Outpatient (RCR) | payer MEDICARE, SELFPAY ==
[2022-09-20 10:53] VITALS: BP 114/56; PULSE 116; RESP 15; TEMP 36.6; O2SAT 99; BMI 20.6
== END 2022-09-20 11:13 | disposition home or self-care (01) ==
LOC: HO.ONC 10:42
PROVIDERS: PCP Internal Medicine Medical Oncology; Visit Provider Internal Medicine
DX: Z13.89 Encounter for screening for other disorder (principal)

== ENCOUNTER 2022-09-24 13:04 | Emergency (ER) | payer MEDICARE, SELFPAY ==
[2022-09-24] VITALS (13 sets, daily range): BP systolic 102–199; BP diastolic 43–68; PULSE 81–120; RESP 12–20; TEMP 37–37.2; O2SAT 87–100; BMI 21.7
--- NOTE | 2022-09-24 13:15 | ECG_ITS ---
Test Reason : Weakness Blood Pressure : / mmHG Vent. Rate : 089 BPM Atrial Rate : 089 BPM P-R Int : 148 ms QRS Dur : 082 ms QT Int : 364 ms P-R-T Axes : 071 051 059 degrees QTc Int : 442 ms Normal sinus rhythm Normal ECG When compared with ECG of 07-SEP-2022 09:58, No significant change was found Referred By: Jerad Pinto Electronically Signed By:EDY MONROY
--- NOTE | 2022-09-24 13:16 | ED_ITS ---
HPI - Syncope General Chief Complaint: Weakness Stated Complaint: Weakness, vfib per EMS Time Seen by Provider: 09/24/22 13:15 Source: patient and EMS Mode of arrival: EMS Limitations: no limitations History of Present Illness HPI narrative: 72-year-old female presents with lightheadedness near syncopal symptoms and generalized weakness. Patient was at the grocery store and bring up her groceries up in 3 story walk up. When she got up, she felt lightheaded almost like she was going to pass out. She had no chest pain, shortness of breath, palpitations. She had symptoms like this in the past and has resulted in low blood counts requiring blood transfusions. She reportedly had a transfusion probably about 2 months ago. Patient denies any recent fevers, chills, nausea, vomiting. Her appetite has been stable. She denies any recent weight changes. Patient is currently asymptomatic. Related Data Home Medications Medication Instructions Recorded Confirmed acyclovir 400 mg tablet 400 mg PO BID 01/31/20 09/20/22 levothyroxine 125 mcg tablet 125 mcg PO DAILY@0600 01/31/20 09/20/22 paroxetine HCl 20 mg tablet 20 mg PO DAILY 01/31/20 09/20/22 trazodone 100 mg tablet 100 mg PO BEDTIME 01/31/20 09/20/22 cyanocobalamin (vitamin B-12) 1 tab PO DAILY 07/15/21 09/20/22 1,000 mcg tablet lorazepam 0.5 mg tablet 0.5 mg PO DAILY PRN anxiety 03/01/22 09/20/22 albuterol sulfate 90 mcg/actuation 1 puff inhalation Q4H PRN Wheezing 09/20/22 09/20/22 aerosol inhaler Previous Rx's Medication Instructions Recorded umeclidinium 62.5 mcg-vilanterol 1 inh inhalation DAILY #60 ea 07/06/22 25 mcg/actuation powdr for inhalation (Anoro Ellipta) Allergies Allergy/AdvReac Type Severity Reaction Status Date / Time adhesive tape Allergy Unknown RASH Verified 09/07/22 10:00 bacitracin [Bacitracin] Allergy Unknown RASH Verified 09/07/22 10:00 Review of Systems Review of Systems: CONSTITUTIONAL: Denies weight loss, fever and chills. HEENT: Denies changes in vision and hearing. RESPIRATORY: Denies SOB and cough. CV: Denies palpitations no CP. GI: Denies abdominal pain, nausea, vomiting and diarrhea. : Denies dysuria and urinary frequency. MSK: Denies myalgia and joint pain. SKIN: Denies rash and pruritus. NEUROLOGICAL: Denies headache and syncope. PSYCHIATRIC: Denies recent changes in mood. Denies anxiety and depression. All other ROS are negative unless in HPI PMFSH Past Medical History Medical History Anemia Anxiety COPD (chronic obstructive pulmonary disease) COPD with asthma Depression Dyspnea Hypothyroidism Non-Hodgkin lymphoma in remission Tobacco dependence Surgical History H/O: hysterectomy History of salpingo-oophorectomy S/P angiogram of extremity (02/13/20) Family History Family History Father CAD (coronary artery disease) Social History Social History Household Members: None Housing: Apartment Do you presently have visiting nurse or other home services: No Alcohol intake: never Patient Tobacco Use Status: Current everyday Tobacco user Tobacco use type: Cigarette Cigarette Packs Per Day: 1 Years Smoked: 40 Smoked in Last 30 Days: No Second Hand Smoke Exposure: No Use of substances other than those prescribed or required for medical reasons: No Advance Directives: Yes Advance Directives on File: Yes Advance Directives Date on File: 07/16/21 service: No Current occupational status: retired Physical Exam Vital Signs: Vital Signs: Last Vital Signs Pulse 82 09/24/22 14:25 Resp 19 09/24/22 14:25 BP 120/50 L 09/24/22 14:25 Pulse Ox 94 09/24/22 14:25 O2 Del Method Room Air 09/24/22 14:25 BMI result Body Mass Index 21.7 GEN: Well developed, no acute distress, alert, oriented HEENT: Normocephalic, atraumatic, normal external ears, nose appears normal, no oropharyngeal edema or exudates Eyes: Normal to appearance Neck: Supple, no lymphadenopathy Respiratory: Talks in complete sentences, no respiratory distress, clear to auscultation bilaterally Cardiovascular: Regular rate and rhythm, no murmurs rubs or gallops Abdomen: Soft, nontender, nondistended, no guarding, no rebound Back: No CVA tenderness Extremities: No clubbing cyanosis or edema Neurologic: No focal neurologic deficits, cranial nerves 2-12 intact, strength is 5/5 bilaterally Skin: No rash Course Course Course Narrative: The workup is complete. Patient is anemic with hemoglobin of 9. 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 She is going to need to be referred to [facility]. In meantime, he is requesting to knee and simply could be transfused the patient in order to help her feel better. She is unl ikely to make any red blood cells and her hemoglobin is likely to drop over the next week or 2. Patient was consented blood for for blood transfusion. She can be discharged following the transfusion. It is 1539, patient will be placed in physician observation at this time. Reevaluation(s) Reevaluation #1: Patient will be signed out to my colleague at 4:00 p.m.. Disposition pending blood transfusion. Time: 16:00 Medications Administered Discontinued Medications Generic Name Dose Route Start Last Admin Trade Name Freq PRN Reason Stop Dose Admin Sodium Chloride 1,000 mls @ 999 mls/hr 09/24/22 13:15 09/24/22 14:50 Ns IV 09/24/22 14:15 Infused .Q1H1M COLLINS Infusion Medical Decision Making Medical Decision Making [facility] Narrative: 72-year-old female with history of lymphoma, COPD, anemia presents with lightheadedness and near syncopal symptoms. She is currently asymptomatic. She has no focal neurologic deficits. Her cardiopulmonary exam is normal. Differential diagnosis could include cardiac dysrhythmia, less likely to be ACS, anemia, electrolyte abnormality, deconditioning. Will check a CBC, chemistry, type and screen and re-evaluate patient. Differential Diagnosis Differential Diagnoses: The differential diagnosis associated with the pr esentation includes (See above) Admission/Observation Consideration of admission/observation: Escalation of care including admission/observation considered Lab Data [facility] Lab Attestation statement: I reviewed the patient's lab results. 09/24/22 13:40 09/24/22 13:40 Labs: Lab Results 09/24/22 09/24/22 09/24/22 Range/Units 13:39 13:40 13:40 WBC 6.2 (4.8-10.8) X10*3/uL RBC 2.78 L (4.20-5.50) X10*6/uL Hgb 9.1 L (12.0-16.0) g/dl Hct 27.6 L (37.0-47.0) % MCV 99.3 H (80.0-98.0) fL MCH 32.7 (27.0-33.0) pg MCHC 33.0 (31.0-35.0) g/dl RDW 22.4 H (11.0-16.0) % Plt Count 313 (160-400) X10*3/uL MPV Not Reportable Immature Gran % (Auto) Cancelled Neut % (Auto) Cancelled Lymph % (Auto) Cancelled Stokes % (Auto) Cancelled Eos % (Auto) Cancelled Baso % (Auto) Cancelled Lymph # (Auto) Cancelled Stokes # (Auto) Cancelled Eos # (Auto) Cancelled Baso # (Auto) Cancelled Abs Immat Gran (auto) Cancelled Absolute Neuts (auto) Cancelled Absolute Nucleated RBC 0.020 H (0.0-0.012) X10*3/uL Nucleated RBC % (auto) 0.3 H (0.0-0.2) /100WBC Neutrophils % (Manual) 25 L (45-73) % Band Neutrophils % 17 H (3-5) % Lymphocytes % (Manual) 31 (20-40) % Monocytes % (Manual) 12 H (2-11) % Eosinophils % (Manual) 2 (0-4) % Basophils % (Manual) 12 H (0-2) % Metamyelocytes % 1 % Abs Neuts (Manual) 2.6 (2.0-8.3) X10*3/uL Lymphocytes # (Manual) 1.9 (1.2-4.9) X10*3/uL Monocytes # (Manual) 0.7 (0.1-1.2) X10*3/uL Eosinophils # (Manual) 0.1 (0.0-0.4) X10*3/uL Basophils # (Manual) 0.7 H (0.0-0.2) X10*3/uL Metamyelocytes # 0.1 X10*3/uL Nucleated RBCs 2 H (0-0) /100WBC Platelet Estimate NORMAL (NORMAL) Large Platelets PRESENT Plt Morphology Comment NOTED RBC Morphology NOTED Macrocytosis 1+ (5-14) /OIF Pappenheimer Bodies PRESENT Tear Drop Cells 1+ (0-2) /OIF Ovalocytes 1+ (5-14) /OIF Kate Cells 1+ (0-2) /OIF Acanthocytes (Spur) 1+ (0-2) /OIF Schistocytes 1+ (0-2) /OIF Sodium 137 (135-145) mmol/L Potassium 3.9 (3.3-5.1) mmol/L Chloride 104 (96-108) mmol/L Carbon Dioxide 21 L (22-29) mmol/L Anion Gap 16 (12-20) BUN 11 (9-16) mg/dL Creatinine 0.95 (0.5-1.4) mg/dL Estim Creat Clear Calc 46.2 Estimated GFR 58 Random Glucose 118 H (60-115) mg/dL Calcium 9.1 D (8.4-10.2) mg/dL Troponin I High Sens < 2.7 (<3.5-17.0) ng/L Urine Color Urine Appearance Urine pH (5.0-9.0) Ur Specific [place] (1.005-1.025) Urine Protein (Neg-Trace) mg/dL Urine Glucose (UA) (Negative) mg/dL Urine Ketones (Negative) mg/dL Urine Blood (Negative) Urine Nitrite (Negative) Ur Leukocyte Esterase (Negative) Urine RBC (0-2) /HPF Urine WBC (0-5) /HPF Ur Squamous Epith Cells (0-2) /HPF Urine Bacteria (None Seen) Hyaline Casts (0-2) /LPF Blood Type Antibody Screen Crossmatch 09/24/22 09/24/22 Range/Units 14:01 14:31 WBC (4.8-10.8) X10*3/uL RBC (4.20-5.50) X10*6/uL Hgb (12.0-16.0) g/dl Hct (37.0-47.0) % MCV (80.0-98.0) fL MCH (27.0-33.0) pg MCHC (31.0-35.0) g/dl RDW (11.0-16.0) % Plt Count (160-400) X10*3/uL MPV Immature Gran % (Auto) Neut % (Auto) Lymph % (Auto) Stokes % (Auto) Eos % (Auto) Baso % (Auto) Lymph # (Auto) Stokes # (Auto) Eos # (Auto) Baso # (Auto) Abs Immat Gran (auto) Absolute Neuts (auto) Absolute Nucleated RBC (0.0-0.012) X10*3/uL Nucleated RBC % (auto) (0.0-0.2) /100WBC Neutrophils % (Manual) (45-73) % Band Neutrophils % (3-5) % Lymphocytes % (Manual) (20-40) % Monocytes % (Manual) (2-11) % Eosinophils % (Manual) (0-4) % Basophils % (Manual) (0-2) % Metamyelocytes % % Abs Neuts (Manual) (2.0-8.3) X10*3/uL Lymphocytes # (Manual) (1.2-4.9) X10*3/uL Monocytes # (Manual) (0.1-1.2) X10*3/uL Eosinophils # (Manual) (0.0-0.4) X10*3/uL Basophils # (Manual) (0.0-0.2) X10*3/uL Metamyelocytes # X10*3/uL Nucleated RBCs (0-0) /100WBC Platelet Estimate (NORMAL) Large Platelets Plt Morphology Comment RBC Morphology Macrocytosis /OIF Pappenheimer Bodies Tear Drop Cells /OIF Ovalocytes /OIF [place] Cells /OIF Acanthocytes (Spur) /OIF Schistocytes /OIF Sodium (135-145) mmol/L Potassium (3.3-5.1) mmol/L Chloride (96-108) mmol/L Carbon Dioxide (22-29) mmol/L Anion Gap (12-20) BUN (9-16) mg/dL Creatinine (0.5-1.4) mg/dL Estim Creat Clear Calc Estimated GFR Random Glucose (60-115) mg/dL Calcium (8.4-10.2) mg/dL Troponin I High Sens (<3.5-17.0) ng/L Urine Color Yellow Urine Appearance Clear Urine pH 6.5 (5.0-9.0) Ur Specific Gillett <= 1.005 (1.005-1.025) Urine Protein Negative (Neg-Trace) mg/dL Urine Glucose (UA) Negative (Negative) mg/dL Urine Ketones Negative (Negative) mg/dL Urine Blood Trace H (Negative) Urine Nitrite Negative (Negative) Ur Leukocyte Esterase Negative (Negative) Urine RBC 0-2 (0-2) /HPF Urine WBC 0-5 (0-5) /HPF Ur Squamous Epith Cells 3-5 (0-2) /HPF Urine Bacteria None Seen (None Seen) Hyaline Casts 0-2 (0-2) /LPF Blood Type O Positive Antibody Screen NEGATIVE Crossmatch See Detail Independent Interpretation I performed an independent interpretation of an: EKG (Normal sinus rhythm heart rate 89, normal intervals, no acute ST elevations depressions) Independent Historian Clinical information obtained from an independent historian. History obtained from or confirmed by: EMS Prescription Management I considered prescription management with: Other (Possible transfusion) Chronic Conditions Patient?s care impacted by: Cancer and Other (COPD) Discharge Plan Discharge Clinical Impression: Near syncope, Chronic anemia, Symptomatic anemia Patient Disposition: Still a Patient Instructions: Near Syncope (ED), Anemia (ED) Prescriptions: No Action cyanocobalamin (vitamin B-12) 1,000 mcg tablet 1 tab PO DAILY albuterol sulfate 90 mcg/actuation HFA aerosol inhaler 1 puff inhalation Q4H PRN (Reason: Wheezing) trazodone 100 mg tablet 100 mg PO BEDTIME acyclovir 400 mg tablet 400 mg PO BID levothyroxine 125 mcg tablet 125 mcg PO DAILY@0600 paroxetine HCl 20 mg tablet 20 mg PO DAILY lorazepam 0.5 mg tablet 0.5 mg PO DAILY PRN (Reason: anxiety) Anoro Ellipta 62.5-25 mcg/actuation blister with device 1 inh inhalation DAILY Qty: 60 11RF Referrals: Burt Juarez MD [Primary Care Provider] - 3 days
[2022-09-24] MEDS: 0.9 % Sodium Chloride 1,000 ML 999 ML IV (13:42)
[2022-09-24 13:54] LABS: Hematocrit 27.6 % (37.0-47.0); Hemoglobin 9.1 g/dl (12.0-16.0); Mean Corpuscular Hemoglobin 32.7 pg (27.0-33.0); Mean Corpuscular Volume 99.3 fL (80.0-98.0); NRBC Pct Auto 0.3 /100WBC (0.0-0.2); PLT CLUMP 1; Red Blood Count 2.78 X10*6/uL (4.20-5.50); Red Cell Distribution Width 22.4 % (11.0-16.0)
[2022-09-24 13:58] LABS: WBC ABN SCTR FOR CBC 1
[2022-09-24 14:07] LABS: Anion Gap 16 (12-20); Blood Urea Nitrogen 11 mg/dL (9-16); Calcium 9.1 mg/dL (8.4-10.2); Carbon Dioxide 21 mmol/L (22-29); Chloride 104 mmol/L (96-108); Creatinine Clr Calc Pharmacy 46.2; Estimated Glomerular Filt Rate 58; Glucose Random 118 mg/dL (60-115); Potassium 3.9 mmol/L (3.3-5.1); Sodium 137 mmol/L (135-145)
[2022-09-24 14:12] LABS: Troponin-I High Sensitivity < 2.7 ng/L (<3.5-17.0)
[2022-09-24 14:35] LABS: Band Neutrophils Percent 17 % (3-5); Basophils Percent Manual 12 % (0-2); Eosinophils Percent Manual 2 % (0-4); Lymphocytes Percent Manual 31 % (20-40); Metamyelocytes Percent 1 %; Monocytes Percent Manual 12 % (2-11); Neutrophils Percent Manual 25 % (45-73); Nucleated Red Blood Cells 2 /100WBC (0-0)
[2022-09-24 14:37] LABS: Platelet Estimate NORMAL (NORMAL); RBC Morphology NOTED
[2022-09-24 14:38] LABS: Acanthocytes 1+ (0-2) /OIF; Burr Cells 1+ (0-2) /OIF; Large Platelet PRESENT; Platelet Morphology Comment NOTED; Schistocytes 1+ (0-2) /OIF; Tear Drop Cells 1+ (0-2) /OIF
[2022-09-24 14:39] LABS: Macrocytosis 1+ (5-14) /OIF; Ovalocytes 1+ (5-14) /OIF; Pappenheimer Bodies PRESENT
[2022-09-24 14:41] LABS: Basophils Abs Manual 0.7 X10*3/uL (0.0-0.2); Eosinophils Absolute Manual 0.1 X10*3/uL (0.0-0.4); Lymphocytes Absolute Manual 1.9 X10*3/uL (1.2-4.9); Metamyelocytes Absolute 0.1 X10*3/uL; Monocytes Absolute Manual 0.7 X10*3/uL (0.1-1.2); Neutrophils Absolute Manual 2.6 X10*3/uL (2.0-8.3); Platelet Count 313 X10*3/uL (160-400); White Blood Count 6.2 X10*3/uL (4.8-10.8)
[2022-09-24 14:53] LABS: Appearance Urine Clear; Color Urine Yellow; Glucose Urine UA Negative (Negative); Leukocyte Esterase Urine Negative (Negative); Nitrite Urine Negative (Negative); PH 6.5 (5.0-9.0); Specific Gravity - Urine <= 1.005 (1.005-1.025); UMIC TRIGGER UACC YES; Urine Blood Trace (Negative); Urine Ketones Negative (Negative); Urine Protein Negative (Neg-Trace)
[2022-09-24 14:56] LABS: Bacteria Urine None Seen (None Seen); Hyaline Casts Urine 0-2 /LPF (0-2); RBC Urine 0-2 /HPF (0-2); WBC Urine 0-5 /HPF (0-5)
--- NOTE | 2022-09-24 15:25 | MHC.EDTECH ---
Ambulated patient with O2 sensor under MD order. Patient O2 stayed between 98-100%
--- NOTE | 2022-09-24 19:46 | PC.NURSE ---
assumed care of pt at 1900 - 1st unit RBCs complete. vital signs updated. pt tolerated well no adverse reactions and pt has no current complaints. 2nd unit RBCs started at 19:38, verified with second RN Ni. pt got self up to commode and back in bed no issues. pt on playground monitor will ctm.
--- NOTE | 2022-09-24 22:02 | PC.NURSE ---
second unit rbcs infused pt tolerated well. A&Ox4, in no apparent physical or respiratory distress. pt speaking clear full sentences and offers no complaints at this time. vital signs updated prior to discharge. port deaccessed.
--- NOTE | 2022-09-24 22:08 | PC.NURSE ---
pt friend here to pick patient up. pt ambulates with steady gait in no apparent distress
== END 2022-09-24 22:09 | disposition home or self-care (01) ==
PROVIDERS: Emergency Medicine; Emergency Provider Emergency Medicine; PCP Internal Medicine Medical Oncology
DX: R55 Syncope and collapse (principal); D53.9 Nutritional anemia, unspecified; D64.89 Other specified anemias; E78.5 Hyperlipidemia, unspecified; F17.210 Nicotine dependence, cigarettes, uncomplicated; Z90.710 Acquired absence of both cervix and uterus; Z79.899 Other long term (current) drug therapy
CPT/HCPCS: 36415; 36430; 80048; 81001; 84484; 85007; 85025; 85027; 86850; 86900; 86901; 86923; 93005; 96360; 96361; 99285; P9016

== ENCOUNTER → 2022-09-24 13:15 | Outpatient (BNV) | payer MEDICARE, SELFPAY | PROVIDERS: Emergency Provider Emergency Medicine; PCP Internal Medicine Medical Oncology; Visit Provider Internal Medicine | DX: M62.81 Muscle weakness (generalized) (principal) | CPT/HCPCS: 93010 ==

== ENCOUNTER 2022-09-30 09:31 | Outpatient (REF) | payer MEDICARE, SELFPAY ==
[2022-09-30 10:47] LABS: Hematocrit 35.3 % (37.0-47.0); Hemoglobin 11.5 g/dl (12.0-16.0); Immature Retic Fraction 9.2 % (3.0-15.9); Mean Corpuscular HGB Conc 32.6 g/dl (31.0-35.0); Mean Corpuscular Hemoglobin 31.2 pg (27.0-33.0); Mean Corpuscular Volume 95.7 fL (80.0-98.0); Mean Platelet Volume 14.5 fL (9.4-12.3); NRBC Pct Auto 0.6 /100WBC (0.0-0.2); PLT CLUMP 1; Red Blood Count 3.69 X10*6/uL (4.20-5.50); Red Cell Distribution Width 21.2 % (11.0-16.0); Retic HGB Equivalent 34.2 pg (30.0-35.0); Reticulocyte Percent 0.8 % (0.5-1.8)
[2022-09-30 10:49] LABS: WBC ABN SCTR FOR CBC 1
[2022-09-30 11:16] LABS: Alanine Aminotransferase 11 U/L (0-31); Albumin Level 3.9 g/dL (3.5-5.0); Alkaline Phosphatase 130 U/L (39-117); Anion Gap 11 (12-20); Aspartate Amino Transferase 12 U/L (5-31); Bilirubin Total 0.4 mg/dL (0.0-1.0); Blood Urea Nitrogen 10 mg/dL (9-16); Calcium 9.8 mg/dL (8.4-10.2); Carbon Dioxide 26 mmol/L (22-29); Chloride 110 mmol/L (96-108); Estimated Glomerular Filt Rate 44; Glucose Random 111 mg/dL (60-115); Sodium 143 mmol/L (135-145); Total Protein 5.4 g/dL (6.5-8.0)
[2022-09-30 11:45] LABS: Atypical Lymphs Percent Manual 2 % (0-6); Band Neutrophils Percent 3 % (3-5); Basophils Percent Manual 14 % (0-2); Lymphocytes Percent Manual 42 % (20-40); Monocytes Percent Manual 11 % (2-11); Neutrophils Percent Manual 27 % (45-73)
[2022-09-30 11:46] LABS: Blast Percent 1 %
[2022-09-30 11:49] LABS: Burr Cells 3+ (>5) /OIF; Macrocytosis 1+ (5-14) /OIF; Ovalocytes 1+ (5-14) /OIF; RBC Morphology NOTED; Schistocytes 1+ (0-2) /OIF
[2022-09-30 11:50] LABS: Atypical Lymph Absolute Manual 0.1 x10*3/uL; Basophils Abs Manual 0.7 X10*3/uL (0.0-0.2); Blastocytes Absolute 0.1 X10*3/uL; Lymphocytes Absolute Manual 2.2 X10*3/uL (1.2-4.9); Monocytes Absolute Manual 0.6 X10*3/uL (0.1-1.2); Neutrophils Absolute Manual 1.6 X10*3/uL (2.0-8.3); Platelet Count 284 X10*3/uL (160-400); Platelet Estimate NORMAL (NORMAL); Platelet Morphology Comment NORMAL; White Blood Count 5.2 X10*3/uL (4.8-10.8)
== END 2022-09-30 09:32 | disposition home or self-care (01) ==
LOC: HO.LAB 09:31
PROVIDERS: PCP Internal Medicine Medical Oncology; Visit Provider Internal Medicine Medical Oncology
DX: C85.10 Unspecified B-cell lymphoma, unspecified site (principal); D53.9 Nutritional anemia, unspecified
CPT/HCPCS: 36415; 80053; 85007; 85027; 85045; 86850; 86900; 86901

== ENCOUNTER 2022-10-04 09:12 | Outpatient (REF) | payer MEDICARE, SELFPAY ==
[2022-10-04 10:42] LABS: Hemoglobin 11.7 g/dl (12.0-16.0); Immature Retic Fraction 9.4 % (3.0-15.9); Mean Corpuscular HGB Conc 32.5 g/dl (31.0-35.0); Mean Corpuscular Hemoglobin 31.2 pg (27.0-33.0); PLT CLUMP 1; Red Blood Count 3.75 X10*6/uL (4.20-5.50); Red Cell Distribution Width 21.5 % (11.0-16.0); Retic HGB Equivalent 35.3 pg (30.0-35.0); Reticulocyte Percent 0.9 % (0.5-1.8); Reticulocytes Absolute 0.035 X10*6/uL (0.026-0.095); WBC ABN SCTR FOR CBC 1
[2022-10-04 11:02] LABS: Band Neutrophils Percent 3 % (3-5); Basophils Percent Manual 8 % (0-2); Eosinophils Percent Manual 4 % (0-4); Lymphocytes Percent Manual 38 % (20-40); Monocytes Percent Manual 17 % (2-11); Neutrophils Percent Manual 30 % (45-73)
[2022-10-04 11:04] LABS: RBC Morphology NOTED
[2022-10-04 11:05] LABS: Macrocytosis 1+ (5-14) /OIF; Ovalocytes 1+ (5-14) /OIF; Platelet Estimate NORMAL (NORMAL); Platelet Morphology Comment NORMAL
[2022-10-04 11:06] LABS: Burr Cells 1+ (0-2) /OIF; Howell Jolly Bodies PRESENT; Pappenheimer Bodies PRESENT; Schistocytes 1+ (0-2) /OIF
[2022-10-04 11:07] LABS: Basophils Abs Manual 0.6 X10*3/uL (0.0-0.2); Eosinophils Absolute Manual 0.3 X10*3/uL (0.0-0.4); Lymphocytes Absolute Manual 2.7 X10*3/uL (1.2-4.9); Monocytes Absolute Manual 1.2 X10*3/uL (0.1-1.2); Neutrophils Absolute Manual 2.3 X10*3/uL (2.0-8.3); Platelet Count 278 X10*3/uL (160-400); White Blood Count 7.1 X10*3/uL (4.8-10.8)
[2022-10-04 11:34] LABS: Alanine Aminotransferase 21 U/L (0-31); Alkaline Phosphatase 133 U/L (39-117); Anion Gap 13 (12-20); Aspartate Amino Transferase 19 U/L (5-31); Bilirubin Total 0.4 mg/dL (0.0-1.0); Blood Urea Nitrogen 15 mg/dL (9-16); Calcium 9.6 mg/dL (8.4-10.2); Carbon Dioxide 26 mmol/L (22-29); Chloride 106 mmol/L (96-108); Estimated Glomerular Filt Rate 40; Glucose Random 120 mg/dL (60-115); Potassium 4.3 mmol/L (3.3-5.1); Sodium 141 mmol/L (135-145); Total Protein 5.7 g/dL (6.5-8.0)
== END 2022-10-04 09:13 | disposition home or self-care (01) ==
LOC: HO.LAB 09:12
PROVIDERS: PCP Internal Medicine Medical Oncology; Visit Provider Internal Medicine Medical Oncology
DX: C85.10 Unspecified B-cell lymphoma, unspecified site (principal); D53.9 Nutritional anemia, unspecified
CPT/HCPCS: 36415; 80053; 85007; 85025; 85027; 85045; 86850; 86900; 86901

== ENCOUNTER 2022-10-11 12:14 | Outpatient (REF) | payer MEDICARE, SELFPAY ==
[2022-10-11 12:52] LABS: Hematocrit 33.2 % (37.0-47.0); Mean Corpuscular HGB Conc 33.1 g/dl (31.0-35.0); Mean Corpuscular Hemoglobin 31.2 pg (27.0-33.0); Mean Corpuscular Volume 94.1 fL (80.0-98.0); Mean Platelet Volume 14.5 fL (9.4-12.3); NRBC Pct Auto 0.3 /100WBC (0.0-0.2); PLT CLUMP 1; Red Blood Count 3.53 X10*6/uL (4.20-5.50); Red Cell Distribution Width 21.1 % (11.0-16.0)
[2022-10-11 12:53] LABS: WBC ABN SCTR FOR CBC 1
[2022-10-11 14:00] LABS: Platelet Count 378 X10*3/uL (160-400); White Blood Count 8.7 X10*3/uL (4.8-10.8)
[2022-10-11 14:04] LABS: Atypical Lymph Absolute Manual 0.3 x10*3/uL; Atypical Lymphs Percent Manual 3 % (0-6); Band Neutrophils Percent 2 % (3-5); Basophils Abs Manual 0.2 X10*3/uL (0.0-0.2); Basophils Percent Manual 2 % (0-2); Eosinophils Absolute Manual 0.1 X10*3/uL (0.0-0.4); Eosinophils Percent Manual 1 % (0-4); Lymphocytes Absolute Manual 4.2 X10*3/uL (1.2-4.9); Lymphocytes Percent Manual 48 % (20-40); Monocytes Absolute Manual 1.4 X10*3/uL (0.1-1.2); Monocytes Percent Manual 16 % (2-11); Neutrophils Absolute Manual 2.6 X10*3/uL (2.0-8.3); Neutrophils Percent Manual 28 % (45-73)
[2022-10-11 14:10] LABS: Acanthocytes 1+ (0-2) /OIF; Macrocytosis 1+ (5-14) /OIF; Microcytosis 1+ (5-14) /OIF; Ovalocytes 1+ (5-14) /OIF; RBC Morphology NOTED
[2022-10-11 14:11] LABS: Hypochromasia 1+ (5-14) /OIF; Large Platelet PRESENT; Platelet Estimate NORMAL (NORMAL); Platelet Morphology Comment NOTED; Spherocytes 1+ (0-2) /OIF
== END 2022-10-11 12:15 | disposition home or self-care (01) ==
LOC: HO.LAB 12:14
PROVIDERS: PCP Internal Medicine Medical Oncology; Visit Provider Internal Medicine Medical Oncology
DX: C85.10 Unspecified B-cell lymphoma, unspecified site (principal)
CPT/HCPCS: 36415; 85007; 85027; 86850; 86900; 86901

== ENCOUNTER 2022-10-12 11:29 | Outpatient (REF) | payer MEDICARE, SELFPAY ==
--- NOTE | 2022-10-12 12:09 | PFT_ITS ---
INDICATION: COPD. SPIROMETRY: FEV to FVC of 61% with an FEV1 of 1.53 L, which is 69% predicted, FVC of 2.51 L, which is 86% predicted. No significant response to bronchodilators noted. Maximum voluntary ventilation is 74% predicted. LUNG VOLUMES: Total lung capacity 91% predicted. DIFFUSION CAPACITY: DLCO of 44% predicted. COMPARISONS: None. INTERPRETATION: There is an obstructive ventilatory defect consistent with moderate COPD. No significant response to bronchodilators noted. Mild decrease in the maximum voluntary ventilation secondary to likely deconditioning. Lung volumes are within normal limits. The patient does have a severe diffusion impairment secondary to emphysema and or other pulmonary parenchymal lung condition should also be considered. Clinical correlation warranted. Surendra Haas MD MR/MODL / [id number]
== END 2022-10-12 11:30 | disposition home or self-care (01) ==
LOC: HO.RESP 11:29
PROVIDERS: PCP Internal Medicine Medical Oncology; Visit Provider Hospitalist
DX: J44.9 Chronic obstructive pulmonary disease, unspecified (principal)
CPT/HCPCS: 94010; 94727; 94729

== ENCOUNTER → 2022-10-12 12:09 | Outpatient (BNV) | payer MEDICARE, SELFPAY | PROVIDERS: PCP Internal Medicine Medical Oncology; Visit Provider Hospitalist | DX: J45.909 Unspecified asthma, uncomplicated (principal) | CPT/HCPCS: 94060; 94727; 94729 ==

== ENCOUNTER 2022-10-20 09:48 | Outpatient (REF) | payer MEDICARE, SELFPAY | END 2022-10-20 09:49 | disposition home or self-care (01) | LOC: HO.LAB 09:48 | PROVIDERS: PCP Internal Medicine Medical Oncology; Visit Provider Internal Medicine Medical Oncology | DX: Z13.89 Encounter for screening for other disorder (principal) | CPT/HCPCS: 36415; 80053; 85007; 85027; 85045; 86850; 86900; 86901 ==

== ENCOUNTER 2022-10-21 07:27 | Outpatient (REF) | payer MEDICARE, SELFPAY ==
[2022-10-20 10:39] LABS: Hematocrit 29.9 % (37.0-47.0); Hemoglobin 9.8 g/dl (12.0-16.0); Mean Corpuscular HGB Conc 32.8 g/dl (31.0-35.0); Mean Corpuscular Hemoglobin 30.8 pg (27.0-33.0); NRBC Pct Auto 0.5 /100WBC (0.0-0.2); PLT CLUMP 1; Red Blood Count 3.18 X10*6/uL (4.20-5.50); Red Cell Distribution Width 21.8 % (11.0-16.0); Reticulocyte Percent 1.3 % (0.5-1.8); Reticulocytes Absolute 0.041 X10*6/uL (0.026-0.095)
[2022-10-20 10:40] LABS: WBC ABN SCTR FOR CBC 1
[2022-10-20 11:03] LABS: Atypical Lymphs Percent Manual 12 % (0-6); Band Neutrophils Percent 4 % (3-5); Basophils Percent Manual 6 % (0-2); Eosinophils Percent Manual 2 % (0-4); Lymphocytes Percent Manual 31 % (20-40); Monocytes Percent Manual 21 % (2-11); Neutrophils Percent Manual 24 % (45-73); Nucleated Red Blood Cells 2 /100WBC (0-0)
[2022-10-20 11:06] LABS: Alanine Aminotransferase 12 U/L (0-31); Albumin Level 4.1 g/dL (3.5-5.0); Alkaline Phosphatase 127 U/L (39-117); Anion Gap 14 (12-20); Aspartate Amino Transferase 14 U/L (5-31); Bilirubin Total 0.6 mg/dL (0.0-1.0); Blood Urea Nitrogen 10 mg/dL (9-16); Calcium 9.5 mg/dL (8.4-10.2); Carbon Dioxide 27 mmol/L (22-29); Chloride 106 mmol/L (96-108); Estimated Glomerular Filt Rate 46; Glucose Random 114 mg/dL (60-115); Potassium 3.9 mmol/L (3.3-5.1); Sodium 143 mmol/L (135-145); Total Protein 5.8 g/dL (6.5-8.0)
[2022-10-20 11:07] LABS: Acanthocytes 1+ (0-2) /OIF; Burr Cells 2+ (3-5) /OIF; Howell Jolly Bodies PRESENT; Hypochromasia 1+ (5-14) /OIF; Macrocytosis 1+ (5-14) /OIF; Microcytosis 1+ (5-14) /OIF; Ovalocytes 1+ (5-14) /OIF; Platelet Estimate NORMAL (NORMAL); Platelet Morphology Comment NORMAL; Polychromasia 1+ (0-2) /OIF; RBC Morphology NOTED; Schistocytes 1+ (0-2) /OIF
[2022-10-20 11:08] LABS: Atypical Lymph Absolute Manual 1.1 x10*3/uL; Basophils Abs Manual 0.6 X10*3/uL (0.0-0.2); Eosinophils Absolute Manual 0.2 X10*3/uL (0.0-0.4); Lymphocytes Absolute Manual 2.9 X10*3/uL (1.2-4.9); Monocytes Absolute Manual 1.9 X10*3/uL (0.1-1.2); Neutrophils Absolute Manual 2.6 X10*3/uL (2.0-8.3); Platelet Count 345 X10*3/uL (160-400); White Blood Count 9.2 X10*3/uL (4.8-10.8)
== END 2022-10-21 07:28 | disposition home or self-care (01) ==
LOC: HO.MDS 07:27
PROVIDERS: Visit Provider Internal Medicine Medical Oncology
DX: D64.9 Anemia, unspecified (principal); C85.90 Non-Hodgkin lymphoma, unspecified, unspecified site
CPT/HCPCS: 36415; 36430; 80053; 85007; 85027; 85045; 86850; 86900; 86901; 86923; J1642; P9016

== ENCOUNTER 2023-01-05 15:12 | Outpatient (REF) | payer MEDICARE, SELFPAY ==
[2023-01-05 15:33] LABS: MANUAL DIFF FLAG NO
[2023-01-05 16:55] LABS: Basophils Percent Auto 0.7 % (0-2); Eosinophils Absolute Auto 0.1 X10*3/uL (0.0-0.4); Eosinophils Percent Auto 1.3 % (0-4); Hematocrit 27.7 % (37.0-47.0); Hemoglobin 9.2 g/dl (12.0-16.0); Imm Gran Abs Auto 0.04 X10*3/uL (0.00-0.03); Imm Gran Pct Auto 0.9 % (0.0-0.4); Lymphocytes Absolute Auto 1.5 X10*3/uL (1.2-4.9); Lymphocytes Percent Auto 32.3 % (20-40); Mean Corpuscular HGB Conc 33.2 g/dl (31.0-35.0); Mean Corpuscular Hemoglobin 33.6 pg (27.0-33.0); Mean Corpuscular Volume 101.1 fL (80.0-98.0); Mean Platelet Volume 12.9 fL (9.4-12.3); Monocytes Absolute Auto 0.4 X10*3/uL (0.1-1.2); Monocytes Percent Auto 8.7 % (2-11); NRBC Pct Auto 0.7 /100WBC (0.0-0.2); Neutrophils Absolute Auto 2.6 x10*3/uL (2.0-8.3); Neutrophils Percent Auto 56.1 % (45-73); Red Blood Count 2.74 X10*6/uL (4.20-5.50); White Blood Count 4.6 X10*3/uL (4.8-10.8)
[2023-01-05 17:04] LABS: Alanine Aminotransferase 6 U/L (0-31); Albumin Level 3.7 g/dL (3.5-5.0); Alkaline Phosphatase 146 U/L (39-117); Anion Gap 10 (12-20); Aspartate Amino Transferase 11 U/L (5-31); Bilirubin Total 0.4 mg/dL (0.0-1.0); Blood Urea Nitrogen 9 mg/dL (9-16); Calcium 9.1 mg/dL (8.4-10.2); Carbon Dioxide 28 mmol/L (22-29); Chloride 111 mmol/L (96-108); Estimated Glomerular Filt Rate > 60; Glucose Random 106 mg/dL (60-115); Platelet Count 49 X10*3/uL (160-400); Potassium 3.1 mmol/L (3.3-5.1); Sodium 146 mmol/L (135-145); Total Protein 5.4 g/dL (6.5-8.0)
== END 2023-01-05 15:13 | disposition home or self-care (01) ==
LOC: HO.LAB 15:12
PROVIDERS: Visit Provider Internal Medicine Medical Oncology
DX: C85.10 Unspecified B-cell lymphoma, unspecified site (principal); D53.9 Nutritional anemia, unspecified; C92.00 Acute myeloblastic leukemia, not having achieved remission
CPT/HCPCS: 36415; 80053; 85025; 86850; 86900; 86901

== ENCOUNTER 2023-02-02 01:46 | Emergency (ER) | payer MEDICARE, SELFPAY ==
[2023-02-02] VITALS (34 sets, daily range): BP systolic 79–152; BP diastolic 37–113; PULSE 82–130; RESP 14–26; TEMP 36.8–38.6; O2SAT 87–100; BMI 20.1
--- NOTE | ~2023-02-02 | XR_ITS ---
EXAMINATION: XR CHEST CLINICAL INFORMATION: Dyspnea COMPARISON: 09/07/2022 TECHNIQUE: Frontal view of the chest was obtained. FINDINGS: Right chest wall infusion port stably position. Normal symmetric lung volumes. No parenchymal consolidation. No pleural effusion. No pneumothorax. Cardiomediastinal silhouette and pulmonary vascularity are within normal limits. No acute osseous abnormalities. XR/XR chest 1V IMPRESSION: No acute findings.
--- NOTE | 2023-02-02 01:55 | ECG_ITS ---
Test Reason : SOB Blood Pressure : / mmHG Vent. Rate : 132 BPM Atrial Rate : 132 BPM P-R Int : 140 ms QRS Dur : 070 ms QT Int : 298 ms P-R-T Axes : 077 073 058 degrees QTc Int : 441 ms Sinus tachycardia Otherwise normal ECG When compared with ECG of 24-SEP-2022 13:22, Nonspecific T wave abnormality now evident in Inferior leads Referred By: Britt Deal Electronically Signed By:Burak Lozano
[2023-02-02] MEDS: Albuterol Sulfate 90 MCG 8 GM INHALER 2 PUFF INHALE (02:24)
[2023-02-02 02:35] LABS: Venous Blood Gas Refer to POC result
[2023-02-02 02:39] LABS: VBG Base Excess 4.4 mmol/L; VBG HCO3 28 mmol/L (22-26); VBG pCO2 37 mmHg; VBG pH 7.47 (7.32-7.43); VBG pO2 31 mmHg
[2023-02-02 02:40] LABS: Lymphocytes Absolute Auto 0.2 X10*3/uL (1.2-4.9); Lymphocytes Percent Auto 88.9 % (20-40); MANUAL DIFF FLAG SCAN; Mean Corpuscular HGB Conc 33.9 g/dl (31.0-35.0); Mean Corpuscular Hemoglobin 34.2 pg (27.0-33.0); Mean Corpuscular Volume 101.1 fL (80.0-98.0); Mean Platelet Volume 8.7 fL (9.4-12.3); Neutrophils Percent Auto 11.1 % (45-73); Red Blood Count 1.87 X10*6/uL (4.20-5.50); SCAN SMEAR FLAG 1
[2023-02-02 02:43] LABS: Platelet Count 21 X10*3/uL (160-400); White Blood Count 0.2 X10*3/uL (4.8-10.8)
[2023-02-02 02:44] LABS: Hematocrit 18.9 % (37.0-47.0); Hemoglobin 6.4 g/dl (12.0-16.0)
[2023-02-02] MEDS: cefEPime HCl 2 GM in 0.9 % Sodium Chloride 50 ML IV (02:44)
[2023-02-02] MEDS: Acetaminophen 325 MG TABLET 650 MG PO (02:46)
[2023-02-02] MEDS: 0.9 % Sodium Chloride 1,000 ML 999 ML IV ×3 (02:47→11:28)
[2023-02-02 02:52] LABS: Lactic Acid 2.1 mmol/L (0.5-2.0)
[2023-02-02 02:58] LABS: Troponin-I High Sensitivity 15.2 ng/L (<3.5-17.0)
[2023-02-02 03:11] LABS: SLIDE REVIEW VERIFIED
[2023-02-02 03:12] LABS: B Type Natriuretic Peptide 43 pg/mL (<100)
--- NOTE | 2023-02-02 03:18 | ED_ITS ---
HPI - General Adult General Chief complaint: General Medical Stated complaint: sob Time Seen by Provider: 02/02/23 03:18 History of Present Illness HPI narrative: The patient is a 72-year-old female who is currently receiving treatment for leukemia at [facility]. She lives in [place]. She says that she previously had non-Hodgkin's lymphoma but that is considered in remission. 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 She had induction chemotherapy at [facility] in October. She has been returning to [place] for additional chemotherapy and last had chemotherapy on January 20. The She reports that she was recently found to have low platelets and she had a platelet transfusion at [facility] yesterday. She was not feeling particularly ill yesterday but woke up this morning just after midnight feeling very chilled and short of breath. She called an ambulance and was brought to the hospital here. She has had a mild cough but no sputum. No urinary symptoms. No abdominal pain. No chest pain. On arrival here she was found to have fever with a temperature of 101.4 degrees. Related Data Home Medications Medication Instructions Recorded Confirmed acyclovir 400 mg tablet 400 mg PO BID 01/31/20 02/02/23 levothyroxine 125 mcg tablet 125 mcg PO DAILY@0600 01/31/20 02/02/23 paroxetine HCl 20 mg tablet 20 mg PO DAILY 01/31/20 02/02/23 trazodone 100 mg tablet 100 mg PO BEDTIME 01/31/20 02/02/23 lorazepam 0.5 mg tablet 0.5 mg PO DAILY PRN anxiety 03/01/22 02/02/23 albuterol sulfate 90 mcg/actuation 1 puff inhalation Q4H PRN Wheezing 09/20/22 02/02/23 aerosol inhaler cholecalciferol (vitamin D3) 25 25 mcg PO DAILY 02/02/23 02/02/23 mcg (1,000 unit) tablet cyanocobalamin (vitamin B-12) 1,000 mcg PO DAILY 02/02/23 02/02/23 1,000 mcg tablet levofloxacin 500 mg tablet 500 mg PO DAILY 02/02/23 02/02/23 omeprazole 40 mg capsule,delayed 40 mg PO BID 02/02/23 02/02/23 release potassium chloride 20 mEq 20 meq PO DAILY 02/02/23 02/02/23 tablet,extended release salmeterol 50 mcg/dose blister 1 inh inhalation Q12H 02/02/23 02/02/23 powder for inhalation (Serevent Diskus) Allergies Allergy/AdvReac Type Severity Reaction Status Date / Time adhesive tape Allergy Unknown RASH Verified 09/07/22 10:00 bacitracin [Bacitracin] Allergy Unknown RASH Verified 09/07/22 10:00 Review of Systems 2 Review of Systems: Yes all other systems are reviewed and are negative [facility] Past Medical History Medical History Anemia Anxiety COPD (chronic obstructive pulmonary disease) COPD with asthma Depression Dyspnea Hypothyroidism Non-Hodgkin lymphoma in remission Tobacco dependence Surgical History H/O: hysterectomy History of salpingo-oophorectomy S/P angiogram of extremity (02/13/20) Family History Family History Father CAD (coronary artery disease) Social History Social History Household Members: None Housing: Apartment Do you presently have visiting nurse or other home services: No Alcohol intake: never Patient Tobacco Use Status: Current everyday Tobacco user Tobacco use type: Cigarette Cigarette Packs Per Day: 1 Years Smoked: 40 Smoked in Last 30 Days: Yes Second Hand Smoke Exposure: No Use of substances other than those prescribed or required for medical reasons: No Advance Directives: Yes Advance Directives on File: Yes Advance Directives Date on File: 07/16/21 service: No Current occupational status: retired Physical Exam ED Vital Signs: Vital Signs - 24 hr 02/02/23 01:51 02/02/23 02:24 02/02/23 03:45 Temperature 101.4 F H 99.7 F Pulse Rate 130 H 126 H 113 H Respiratory Rate 22 H 24 H 14 Blood Pressure 136/113 H 98/41 L Pulse Oximetry 100 Oxygen Delivery Method Non-Rebreather Mask 02/02/23 04:00 02/02/23 04:01 02/02/23 05:55 Temperature 99.4 F 99.8 F Pulse Rate 113 H 113 H 103 H Respiratory Rate 24 H 20 16 Blood Pressure 79/37 L 96/42 L 84/43 L Pulse Oximetry 99 97 Oxygen Delivery Method Room Air Room Air 02/02/23 06:50 02/02/23 07:56 02/02/23 08:09 Temperature 99.0 F 98.6 F Pulse Rate 103 H 98 102 H Respiratory Rate 14 23 H Blood Pressure 87/45 L 85/41 L 95/50 L Pulse Oximetry 100 Oxygen Delivery Method Room Air 02/02/23 08:13 02/02/23 08:30 02/02/23 08:30 Temperature 98.6 F 98.6 F 98.6 F Pulse Rate 101 H 96 96 Respiratory Rate 16 15 15 Blood Pressure 109/58 L 135/64 135/64 Pulse Oximetry 100 Oxygen Delivery Method Room Air 02/02/23 08:45 02/02/23 09:00 02/02/23 09:15 Temperature 98.4 F 98.4 F Pulse Rate 90 94 93 Respiratory Rate 18 24 H Blood Pressure 125/43 L 138/57 L 152/73 H Pulse Oximetry 96 99 Oxygen Delivery Method Room Air 02/02/23 09:30 02/02/23 09:45 02/02/23 10:00 Temperature 98.8 F 98.9 F 100.1 F Pulse Rate 99 107 H 97 Respiratory Rate 17 19 23 H Blood Pressure 138/77 148/82 H 147/79 H Pulse Oximetry 98 100 95 Oxygen Delivery Method Room Air Room Air Room Air 02/02/23 10:16 02/02/23 10:30 Temperature 99.5 F Pulse Rate 101 H 108 H Respiratory Rate 23 H Blood Pressure 136/52 L 133/64 Pulse Oximetry Oxygen Delivery Method BMI result Body Mass Index 20.1 Const Other: The patient is a very frail looking, pale, chronically ill-appearing 72-year-old who is awake and alert and does not appear obviously uncomfortable or in respiratory distress. HENMT Other: Face is symmetrical. Mucous membranes possibly slightly dry Eyes Other: Pupils are round equal, conjunctivae are clear Neck Other: No JVD Resp Other: Lungs are fairly clear bilaterally Cardio Other: The patient has a regular rate and rhythm without murmur GI Other: Abdomen is soft and nontender Skin Other: Skin is pale and dry Neuro Other: Patient is awake and alert. She seems weak but has a nonfocal exam. She has a normal mental status. Extrem Other: No peripheral edema Medications Administered Generic Name Dose Route Start Last Admin Trade Name Rubina PRN Reason Stop Dose Admin Norepinephrine Bitartrate 8 mg in 250 mls @ 0 mls/hr 02/02/23 07:45 02/02/23 08:09 Levophed IV 0.05 mcg/kg/min .Q0M COLLINS 4.97 mls/hr Administration Protocol Per Protocol Discontinued Medications Generic Name Dose Route Start Last Admin Trade Name Rubina PRN Reason Stop Dose Admin Acetaminophen 650 mg 02/02/23 02:03 02/02/23 02:46 Acetaminophen 325 Mg Tablet PO 02/02/23 02:04 650 mg ONCE ONE Administration Albuterol Sulfate 2 puff 02/02/23 02:19 02/02/23 02:24 Albuterol Sulfate 90 Mcg 8 Gm Inhaler INHALE 02/02/23 02:20 2 puff ONCE ONE Administration Cefepime HCl 2 gm/ Sodium 50 mls @ 100 mls/hr 02/02/23 02:03 02/02/23 03:36 Chloride IV 02/02/23 02:32 Infused ONCE ONE Infusion Sodium Chloride 1,000 mls @ 999 mls/hr 02/02/23 02:15 02/02/23 03:51 Ns IV 02/02/23 03:15 Infused .Q1H1M COLLINS Infusion Sodium Chloride 100 mls @ 100 mls/hr 02/02/23 02:47 02/02/23 06:53 Ns IV 02/02/23 03:46 Infused ONCE ONE Infusion Sodium Chloride 1,000 mls @ 999 mls/hr 02/02/23 06:00 02/02/23 07:32 Ns IV 02/02/23 07:00 Infused .Q1H1M COLLINS Infusion Medical Decision Making Medical Decision Making [facility] Narrative: The patient is a 72-year-old female currently receiving chemotherapy at [facility] for acute myeloid leukemia that was diagnosed this summer. The patient had told me that she had not received chemotherapy for several weeks always possible that her labs today show that she was severely neutropenic. I was able to speak with 1 of the oncologists at [facility] who told me that in fact the patient had last received chemotherapy on January 20 and therefore the patient is in the appropriate window for benoit of her white count following chemo. The patient was treated promptly with 2 g of cefepime IV. She was also found to be anemic and was transfused blood. The patient's initial lactate was slightly elevated at 2.1. The patient's initial blood pressures were stable but subsequent blood pressures were low although the patient did not seem to be symptomatic with her low blood pressures. The patient has a Port-A-Cath. Given the low blood pressures she was started on very low-dose norepinephrine after receiving 2 L of crystalloid. Clinically the patient's mental status and peripheral perfusion remained well throughout. I contacted the [facility] transfer hotline and I also spoke to Dr. Cruz of the oncology service at [facility]. She expressed a desire to have the patient transferred to their facility. However no bed was immediately available. Patient's repeat lactate was 1.6. 10:41 AM I placed a 2nd call to the transfer hotline. They think a bed on the oncology floor is imminent. However the bed that they have been working to prepare is not a bed that could accommodate norepinephrine. The patient's blood pressure on the lowest dose of norepinephrine is 135/60. I will therefore stop the norepinephrine and order another L of crystalloid and also give 5 mg of oral midodrine. My hope is that the patient's blood pressure will be sufficiently improved that the patient will be able to be transferred to [facility] to the oncology floor without pressors. I will be signing the patient out to my colleague at change of shift pending a call back from [facility] and about an hour or two. Lab Data 02/02/23 02:27 02/02/23 02:28 Labs: Lab Results 02/02/23 02/02/23 02/02/23 Range/Units 02:27 02:28 02:29 WBC 0.2 L* (4.8-10.8) X10*3/uL RBC 1.87 L D (4.20-5.50) X10*6/uL Hgb 6.4 L* D (12.0-16.0) g/dl Hct 18.9 L* D (37.0-47.0) % MCV 101.1 H (80.0-98.0) fL MCH 34.2 H (27.0-33.0) pg MCHC 33.9 (31.0-35.0) g/dl RDW Not Reportable Plt Count 21 L D (160-400) X10*3/uL MPV 8.7 L (9.4-12.3) fL Immature Gran % (Auto) 0.0 (0.0-0.4) % Neut % (Auto) 11.1 L (45-73) % Lymph % (Auto) 88.9 H (20-40) % Emanuel % (Auto) 0.0 L (2-11) % Eos % (Auto) 0.0 (0-4) % Baso % (Auto) 0.0 (0-2) % Lymph # (Auto) 0.2 L (1.2-4.9) X10*3/uL Emanuel # (Auto) 0.0 L (0.1-1.2) X10*3/uL Eos # (Auto) 0.0 (0.0-0.4) X10*3/uL Baso # (Auto) 0.0 (0.0-0.2) X10*3/uL Abs Immat Gran (auto) 0.00 (0.00-0.03) X10*3/uL Absolute Neuts (auto) 0.0 L (2.0-8.3) x10*3/uL Absolute Nucleated RBC 0.000 (0.0-0.012) X10*3/uL Nucleated RBC % (auto) 0.0 (0.0-0.2) /100WBC Smear Tech's Comments VERIFIED VBG pH (7.32-7.43) VBG pCO2 mmHg VBG pO2 mmHg VBG HCO3 (22-26) mmol/L VBG O2 Saturation VBG Base Excess mmol/L Sodium 141 (135-145) mmol/L Potassium 4.2 D (3.3-5.1) mmol/L Chloride 107 (96-108) mmol/L Carbon Dioxide 23 (22-29) mmol/L Anion Gap 15 (12-20) BUN 27 H (9-16) mg/dL Creatinine 1.12 (0.5-1.4) mg/dL Estim Creat Clear Calc 37.9 Estimated GFR 48 Random Glucose 95 (60-115) mg/dL Lactic Acid 2.1 H* (0.5-2.0) mmol/L Lactic Acid F/U @ 2Hr (0.5-2.0) mmol/L Calcium 8.9 (8.4-10.2) mg/dL Magnesium 1.5 L (1.6-2.6) mg/dL Total Bilirubin 0.4 (0.0-1.0) mg/dL Direct Bilirubin 0.2 (0.0-0.5) mg/dL AST 12 (5-31) U/L ALT 11 (0-31) U/L Alkaline Phosphatase 105 (39-117) U/L Troponin I High Sens 15.2 D (<3.5-17.0) ng/L B-Natriuretic Peptide 43 (<100) pg/mL Total Protein 5.1 L (6.5-8.0) g/dL Albumin 3.5 (3.5-5.0) g/dL Procalcitonin 0.76 ng/mL Urine Color Urine Appearance Urine pH (5.0-9.0) Ur Specific [place] (1.005-1.025) Urine Protein (Neg-Trace) mg/dL Urine Glucose (UA) (Negative) mg/dL Urine Ketones (Negative) mg/dL Urine Blood (Negative) Urine Nitrite (Negative) Ur Leukocyte Esterase (Negative) Blood Type Antibody Screen Crossmatch 02/02/23 02/02/23 02/02/23 Range/Units 02:32 02:33 04:45 WBC (4.8-10.8) X10*3/uL RBC (4.20-5.50) X10*6/uL Hgb (12.0-16.0) g/dl Hct (37.0-47.0) % MCV (80.0-98.0) fL MCH (27.0-33.0) pg MCHC (31.0-35.0) g/dl RDW Plt Count (160-400) X10*3/uL MPV (9.4-12.3) fL Immature Gran % (Auto) (0.0-0.4) % Neut % (Auto) (45-73) % Lymph % (Auto) (20-40) % Emanuel % (Auto) (2-11) % Eos % (Auto) (0-4) % Baso % (Auto) (0-2) % Lymph # (Auto) (1.2-4.9) X10*3/uL Emanuel # (Auto) (0.1-1.2) X10*3/uL Eos # (Auto) (0.0-0.4) X10*3/uL Baso # (Auto) (0.0-0.2) X10*3/uL Abs Immat Gran (auto) (0.00-0.03) X10*3/uL Absolute Neuts (auto) (2.0-8.3) x10*3/uL Absolute Nucleated RBC (0.0-0.012) X10*3/uL Nucleated RBC % (auto) (0.0-0.2) /100WBC Smear Tech's Comments VBG pH 7.47 H (7.32-7.43) VBG pCO2 37 mmHg VBG pO2 31 mmHg VBG HCO3 28 H (22-26) mmol/L VBG O2 Saturation Not Reportable VBG Base Excess 4.4 mmol/L Sodium (135-145) mmol/L Potassium (3.3-5.1) mmol/L Chloride (96-108) mmol/L Carbon Dioxide (22-29) mmol/L Anion Gap (12-20) BUN (9-16) mg/dL Creatinine (0.5-1.4) mg/dL Estim Creat Clear Calc Estimated GFR Random Glucose (60-115) mg/dL Lactic Acid (0.5-2.0) mmol/L Lactic Acid F/U @ 2Hr 1.6 (0.5-2.0) mmol/L Calcium (8.4-10.2) mg/dL Magnesium (1.6-2.6) mg/dL Total Bilirubin (0.0-1.0) mg/dL Direct Bilirubin (0.0-0.5) mg/dL AST (5-31) U/L ALT (0-31) U/L Alkaline Phosphatase (39-117) U/L Troponin I High Sens (<3.5-17.0) ng/L B-Natriuretic Peptide (<100) pg/mL Total Protein (6.5-8.0) g/dL Albumin (3.5-5.0) g/dL Procalcitonin ng/mL Urine Color Urine Appearance Urine pH (5.0-9.0) Ur Specific [place] (1.005-1.025) Urine Protein (Neg-Trace) mg/dL Urine Glucose (UA) (Negative) mg/dL Urine Ketones (Negative) mg/dL Urine Blood (Negative) Urine Nitrite (Negative) Ur Leukocyte Esterase (Negative) Blood Type O Positive Antibody Screen NEGATIVE Crossmatch See Detail 02/02/23 Range/Units 08:10 WBC (4.8-10.8) X10*3/uL RBC (4.20-5.50) X10*6/uL Hgb (12.0-16.0) g/dl Hct (37.0-47.0) % MCV (80.0-98.0) fL MCH (27.0-33.0) pg MCHC (31.0-35.0) g/dl RDW Plt Count (160-400) X10*3/uL MPV (9.4-12.3) fL Immature Gran % (Auto) (0.0-0.4) % Neut % (Auto) (45-73) % Lymph % (Auto) (20-40) % Emanuel % (Auto) (2-11) % Eos % (Auto) (0-4) % Baso % (Auto) (0-2) % Lymph # (Auto) (1.2-4.9) X10*3/uL Emanuel # (Auto) (0.1-1.2) X10*3/uL Eos # (Auto) (0.0-0.4) X10*3/uL Baso # (Auto) (0.0-0.2) X10*3/uL Abs Immat Gran (auto) (0.00-0.03) X10*3/uL Absolute Neuts (auto) (2.0-8.3) x10*3/uL Absolute Nucleated RBC (0.0-0.012) X10*3/uL Nucleated RBC % (auto) (0.0-0.2) /100WBC Smear Tech's Comments VBG pH (7.32-7.43) VBG pCO2 mmHg VBG pO2 mmHg VBG HCO3 (22-26) mmol/L VBG O2 Saturation VBG Base Excess mmol/L Sodium (135-145) mmol/L Potassium (3.3-5.1) mmol/L Chloride (96-108) mmol/L Carbon Dioxide (22-29) mmol/L Anion Gap (12-20) BUN (9-16) mg/dL Creatinine (0.5-1.4) mg/dL Estim Creat Clear Calc Estimated GFR Random Glucose (60-115) mg/dL Lactic Acid (0.5-2.0) mmol/L Lactic Acid F/U @ 2Hr (0.5-2.0) mmol/L Calcium (8.4-10.2) mg/dL Magnesium (1.6-2.6) mg/dL Total Bilirubin (0.0-1.0) mg/dL Direct Bilirubin (0.0-0.5) mg/dL AST (5-31) U/L ALT (0-31) U/L Alkaline Phosphatase (39-117) U/L Troponin I High Sens (<3.5-17.0) ng/L B-Natriuretic Peptide (<100) pg/mL Total Protein (6.5-8.0) g/dL Albumin (3.5-5.0) g/dL Procalcitonin ng/mL Urine Color Yellow Urine Appearance Clear Urine pH 7.5 (5.0-9.0) Ur Specific [place] 1.010 (1.005-1.025) Urine Protein Negative (Neg-Trace) mg/dL Urine Glucose (UA) Negative (Negative) mg/dL Urine Ketones Negative (Negative) mg/dL Urine Blood Negative (Negative) Urine Nitrite Negative (Negative) Ur Leukocyte Esterase Negative (Negative) Blood Type Antibody Screen Crossmatch Critical Care Time Critical Care Time Critical Care Time: Yes Total Critical Care Time: 45 Attestation: The patient was critically ill with a high probability of imminent or life- threatening deterioration. I spent greater than 30 minutes of discontinuous time evaluating the patient, delivering critical care at the bedside, discussing evaluating data with consultants. Critical care time does not include time spent performing separately billable procedures or teaching. Time spent performing critical care with 45 minutes. Discharge Plan Discharge Clinical Impression: Febrile neutropenia, Anemia, Acute myeloid leukemia Patient Disposition: Still a Patient Prescriptions: No Action albuterol sulfate 90 mcg/actuation HFA aerosol inhaler 1 puff inhalation Q4H PRN (Reason: Wheezing) omeprazole 40 mg capsule,delayed release(DR/EC) 40 mg PO BID Serevent Diskus 50 mcg/dose blister with device 1 inh inhalation Q12H levofloxacin 500 mg tablet 500 mg PO DAILY cholecalciferol (vitamin D3) 25 mcg (1,000 unit) tablet 25 mcg PO DAILY potassium chloride 20 mEq tablet extended release 20 meq PO DAILY cyanocobalamin (vitamin B-12) 1,000 mcg tablet 1,000 mcg PO DAILY trazodone 100 mg tablet 100 mg PO BEDTIME acyclovir 400 mg tablet 400 mg PO BID levothyroxine 125 mcg tablet 125 mcg PO DAILY@0600 paroxetine HCl 20 mg tablet 20 mg PO DAILY lorazepam 0.5 mg tablet 0.5 mg PO DAILY PRN (Reason: anxiety)
--- NOTE | 2023-02-02 03:50 | PC.NURSE ---
pt remains AxO x4, tena gopn stretcher, O2 has been titrated down by respiratory with good effect, pt now maintaining O2 saturation of 97% on no O2. Blood product begun per TAR, monitoring per protocol.
[2023-02-02 03:58] LABS: Alanine Aminotransferase 11 U/L (0-31); Albumin Level 3.5 g/dL (3.5-5.0); Alkaline Phosphatase 105 U/L (39-117); Anion Gap 15 (12-20); Aspartate Amino Transferase 12 U/L (5-31); Bilirubin Direct 0.2 mg/dL (0.0-0.5); Bilirubin Total 0.4 mg/dL (0.0-1.0); Blood Urea Nitrogen 27 mg/dL (9-16); Calcium 8.9 mg/dL (8.4-10.2); Carbon Dioxide 23 mmol/L (22-29); Chloride 107 mmol/L (96-108); Creatinine Clr Calc Pharmacy 37.9; Estimated Glomerular Filt Rate 48; Glucose Random 95 mg/dL (60-115); Magnesium 1.5 mg/dL (1.6-2.6); Potassium 4.2 mmol/L (3.3-5.1); Sodium 141 mmol/L (135-145); Total Protein 5.1 g/dL (6.5-8.0)
[2023-02-02 04:16] LABS: Procalcitonin 0.76 ng/mL
[2023-02-02 04:33] LABS: Reflex Lactate? Lactic Acid Added
[2023-02-02 05:04] LABS: ~Lactic Acid-LAB USE ONLY 1.6 mmol/L (0.5-2.0)
--- NOTE | 2023-02-02 06:09 | PC.NURSE ---
Pt noted to be hypotensive, with MD Villegas at bedside. Per pt, she states she is normally hypotensive in the mornings, between 80-90 SBP. MD, baseed on current clinical findings, agrees that this is not a transfusion reaction; however despite possible baseline finding, current SBP and change will require potential admission to ICU.
--- NOTE | 2023-02-02 06:39 | MHC.EDTECH ---
Call out to [facility] [place] at [facility] Lazcano @[phone] returned phone call back @[phone]
[2023-02-02] MEDS: Norepinephrine Bitartrate/D5W 8 MG/250 ML PLAST..BAG 4.97 MG IV (08:09)
[2023-02-02 08:21] LABS: Appearance Urine Clear; Color Urine Yellow; Glucose Urine UA Negative (Negative); Leukocyte Esterase Urine Negative (Negative); Nitrite Urine Negative (Negative); PH 7.5 (5.0-9.0); Urine Blood Negative (Negative); Urine Ketones Negative (Negative); Urine Protein Negative (Neg-Trace)
--- NOTE | 2023-02-02 10:28 | PHA.MEDREC ---
Pharmacy Consult ? Medication Reconciliation Pharmacy has completed the medication reconciliation. Patient knew all medications.
[2023-02-02] MEDS: Midodrine HCl 5 MG TABLET PO (11:27)
[2023-02-02] MEDS: Acetaminophen 325 MG TABLET 975 MG PO (12:16)
--- NOTE | 2023-02-02 16:20 | PC.NURSE ---
assumed care of patient from [facility]. At this time, pt s resting comfortably, with stable vitals. Spoke to a RN at [facility] and gave an update on the patients condition. Pressure stable, pt afebrile. Pt requesting to know the plan. [facility] indicated that we should stand-by for a call from them for a complete report and the go-ahead for transfer.
[2023-02-02 16:49] LABS: MANUAL DIFF FLAG NO
[2023-02-02 16:51] LABS: Hemoglobin 7.9 g/dl (12.0-16.0); Lymphocytes Absolute Auto 0.9 X10*3/uL (1.2-4.9); Lymphocytes Percent Auto 95.8 % (20-40); Mean Corpuscular HGB Conc 34.3 g/dl (31.0-35.0); Mean Corpuscular Hemoglobin 33.2 pg (27.0-33.0); Mean Corpuscular Volume 96.6 fL (80.0-98.0); Mean Platelet Volume 8.6 fL (9.4-12.3); Neutrophils Percent Auto 4.2 % (45-73); Red Blood Count 2.38 X10*6/uL (4.20-5.50); Red Cell Distribution Width 20.9 % (11.0-16.0); SCAN SMEAR FLAG 1
[2023-02-02 17:09] LABS: Platelet Count 9 X10*3/uL (160-400)
--- NOTE | 2023-02-02 17:14 | PC.NURSE ---
repott given to Rosa SRIVASTAVA at [facility]-
--- NOTE | 2023-02-02 18:32 | PC.NURSE ---
EMS here for transport to [facility].
--- NOTE | 2023-02-05 13:32 | PC.NURSE ---
rec call from MD Brumfield at [facility] request BC to be faxed to [phone] fax confirmation rec
== END 2023-02-02 18:46 | disposition short-term general hospital (02) ==
PROVIDERS: Emergency Medicine; Internal Medicine; Emergency Provider Emergency Medicine; PCP Internal Medicine Medical Oncology
DX: D70.9 Neutropenia, unspecified (principal); R50.81 Fever presenting with conditions classified elsewhere; D53.9 Nutritional anemia, unspecified; C92.00 Acute myeloblastic leukemia, not having achieved remission; D61.818 Other pancytopenia; R06.02 Shortness of breath; J44.9 Chronic obstructive pulmonary disease, unspecified; E78.5 Hyperlipidemia, unspecified; C85.90 Non-Hodgkin lymphoma, unspecified, unspecified site; Z90.710 Acquired absence of both cervix and uterus; F17.210 Nicotine dependence, cigarettes, uncomplicated; Z92.21 Personal history of antineoplastic chemotherapy; Z79.899 Other long term (current) drug therapy
CPT/HCPCS: 36415; 36430; 71045; 80048; 80076; 81003; 82803; 83605; 83735; 83880; 84145; 84484; 85025; 86850; 86900; 86901; 86923; 87040; 93005; 94640; 96361; 96365; 96366; 96367; 99285; J0692; P9016

== ENCOUNTER → 2023-02-02 01:55 | Outpatient (BNV) | payer MEDICARE, SELFPAY | PROVIDERS: Emergency Provider Emergency Medicine; PCP Internal Medicine Medical Oncology; Visit Provider Internal Medicine Cardiovascular Disease | DX: R00.0 Tachycardia, unspecified (principal) | CPT/HCPCS: 93010 ==

== ENCOUNTER 2023-05-04 11:51 | Emergency (ER) | payer MEDICARE, SELFPAY ==
--- NOTE | 2023-05-04 | ECG_ITS ---
Test Reason : WEAKNESS Blood Pressure : / mmHG Vent. Rate : 105 BPM Atrial Rate : 105 BPM P-R Int : 130 ms QRS Dur : 076 ms QT Int : 330 ms P-R-T Axes : 075 060 063 degrees QTc Int : 436 ms Sinus tachycardia Otherwise normal ECG When compared with ECG of 02-FEB-2023 01:59, No significant change was found Referred By: Jose M Collins Electronically Signed By:ETHAN ALLISNO MD
--- NOTE | ~2023-05-04 | CT_ITS ---
EXAMINATION: CT ANGIOGRAM OF THE CHEST WITH AND WITHOUT CONTRAST (CT PULMONARY ANGIOGRAM FOR PE) CLINICAL INFORMATION: Reason for Exam HYPOXIA, SOB, low INR COMPARISON: None available. TECHNIQUE: Prior to contrast administration, noncontrast localization images were obtained. Subsequently, multidetector volumetric imaging was performed from the thoracic inlet to below the diaphragms following the administration of 80 mL Omnipaque 350 intravenous contrast. No contrast reaction reported Sagittal, coronal, and MIP oblique sagittal reformatted images were obtained on the CT workstation, uploaded to PACS, and reviewed. This CT examination was performed using dose optimization techniques as appropriate, variously including the following: *Automated exposure control *Adjustment of mA and/or kV according to patient size (this includes techniques or standardized protocols for targeted exams where dose is matched to indication/reason for exam; i.e. extremities or head) *Use of iterative reconstruction technique Total exam dose-length product 178 mGy-cm FINDINGS: QUALITY OF STUDY/CONTRAST BOLUS: Satisfactory. PULMONARY ARTERIES: No pulmonary emboli. THORACIC AORTA: No aneurysm. LUNG: There is bilateral apical parenchymal scarring and pleural thickening diffuse emphysematous lungs are noted. There is a tumor nodules along the right major fissure axial image 29/6 likely intrafissural lymph node. PLEURA: No pleural effusion or pneumothorax. MEDIASTINUM: Normal heart size. No pericardial effusion. No hilar or mediastinal lymphadenopathy. No evidence of septal bowing or right heart strain. There is a small hiatal hernia. CORONARY ARTERY CALCIFICATION: None visualized on this study. CHEST WALL/AXILLA: No axillary or internal mammary lymphadenopathy. OSSEOUS STRUCTURES: No aggressive lytic or sclerotic process seen. UPPER ABDOMEN: Visualized liver, spleen, pancreas and bilateral adrenal glands unremarkable. There is right renal cysts No reflux of contrast into the hepatic veins to suggest elevated right heart pressures. CT/CT angio chest PE protocol IMPRESSION: 1. No evidence of PE. 2. No evidence aortic aneurysm. 3. Bilateral apical parenchymal scarring and pleural thickening. VTE: negative.
--- NOTE | ~2023-05-04 | XR_ITS ---
EXAMINATION: XR CHEST CLINICAL INFORMATION: Syncope COMPARISON: Chest 02/02/2023 TECHNIQUE: Frontal view of the chest was obtained. FINDINGS: The lungs are well-expanded and clear. Heart size and pulmonary vascularity is normal. There is central venous port with its tip in proximal to mid SVC. No pleural effusion or pneumothorax. No gross bony abnormality. XR/XR chest 1V IMPRESSION: Unremarkable chest examination. No change from 02/02/2023.
[2023-05-04 11:55] VITALS: BMI 17.9
[2023-05-04 11:58] VITALS: BP 127/64; PULSE 105; RESP 181; TEMP 36.9; O2SAT 99
--- NOTE | 2023-05-04 12:12 | ED_ITS ---
HPI - General Adult General Chief complaint: Weakness Stated complaint: Passed out in car Time Seen by Provider: 05/04/23 11:56 Source: patient Limitations: no limitations History of Present Illness HPI narrative: 73 years old with past medical history of B-cell lymphoma status post chemotherapy and bone marrow transplant which recently relapsed and who is pending to start chemotherapy, COPD, hypothyroidism, depression, anxiety, GERD, PID, presents to the emergency room for generalized weakness. Patient reports that the weakness started approximately an hour prior to presentation in the emergency room. She reports that when she woke up she felt as her usual self, sit down in a chair but when she went to get up to go get breakfast she felt very weak. She reports that the weakness was generalized and not limited to 1 side. She reports nausea but no vomiting and no abdominal pain. Denies melena, hematochezia Denies chest pain but reports that over the past few days she is being having some difficulty breathing which has not worsened today. Patient denies chills or fever. No urinary symptoms. Related Data Home Medications Medication Instructions Recorded Confirmed acyclovir 400 mg tablet 400 mg PO BID 01/31/20 02/02/23 levothyroxine 125 mcg tablet 125 mcg PO DAILY@0600 01/31/20 02/02/23 paroxetine HCl 20 mg tablet 20 mg PO DAILY 01/31/20 02/02/23 trazodone 100 mg tablet 100 mg PO BEDTIME 01/31/20 02/02/23 lorazepam 0.5 mg tablet 0.5 mg PO DAILY PRN anxiety 03/01/22 02/02/23 albuterol sulfate 90 mcg/actuation 1 puff inhalation Q4H PRN Wheezing 09/20/22 02/02/23 aerosol inhaler cholecalciferol (vitamin D3) 25 25 mcg PO DAILY 02/02/23 02/02/23 mcg (1,000 unit) tablet cyanocobalamin (vitamin B-12) 1,000 mcg PO DAILY 02/02/23 02/02/23 1,000 mcg tablet levofloxacin 500 mg tablet 500 mg PO DAILY 02/02/23 02/02/23 omeprazole 40 mg capsule,delayed 40 mg PO BID 02/02/23 02/02/23 release potassium chloride 20 mEq 20 meq PO DAILY 02/02/23 02/02/23 tablet,extended release salmeterol 50 mcg/dose blister 1 inh inhalation Q12H 02/02/23 02/02/23 powder for inhalation (Serevent Diskus) Allergies Allergy/AdvReac Type Severity Reaction Status Date / Time adhesive tape Allergy Unknown RASH Verified 05/04/23 11:55 bacitracin [Bacitracin] Allergy Unknown RASH Verified 05/04/23 11:55 Review of Systems 2 Review of Systems: Yes all other systems are reviewed and are negative [facility] Past Medical History Medical History Anemia Anxiety COPD (chronic obstructive pulmonary disease) COPD with asthma Depression Dyspnea Hypothyroidism Non-Hodgkin lymphoma in remission Tobacco dependence Surgical History H/O: hysterectomy History of salpingo-oophorectomy S/P angiogram of extremity (02/13/20) Family History Family History Father CAD (coronary artery disease) Social History Social History Household Members: None Housing: Apartment Do you presently have visiting nurse or other home services: No Alcohol intake: never Patient Tobacco Use Status: Current everyday Tobacco user Tobacco use type: Cigarette Cigarette Packs Per Day: 1 Years Smoked: 40 Smoked in Last 30 Days: Yes Second Hand Smoke Exposure: No Use of substances other than those prescribed or required for medical reasons: No Advance Directives: Yes Advance Directives on File: Yes Advance Directives Date on File: 07/16/21 service: No Current occupational status: retired Physical Exam ED Vital Signs: Vital Signs - 24 hr 05/04/23 11:58 05/04/23 12:14 05/04/23 12:36 Temperature 98.5 F 98.8 F 98.6 F Pulse Rate 105 H Respiratory Rate 181 H Blood Pressure 127/64 Pulse Oximetry 99 Oxygen Delivery Method Room Air 05/04/23 14:11 Temperature Pulse Rate 84 Respiratory Rate 16 Blood Pressure 103/52 L Pulse Oximetry 98 Oxygen Delivery Method Room Air BMI result Body Mass Index 17.9 General: Alert, Not in Distress Skin: No rash, warm HEENT: Atraumatic, No Exudate or Pharyngeal Erythema Resp: Normal Breath sounds bilaterally Cardio: Regular rate and Rhythm, Normal S1, S2 ABD: Abd soft, non tender, no guarding or rebound. Normal Bowel sounds. : No cva tenderness Neuro: Alert, oriented x4, PERRL Strenght 5/5 on all extremities Sensation is preserved in both lower and upper extremities Index to nose: normal Cranial Nerves II-XII grossly intact No dysarthria, or aphasia No neglet. Visual barahona are normal bilaterally Psych: Cooperative, NO SI Course Reevaluation(s) Reevaluation #1: I personally reviewed the patient CTA, no PE seen no consolidation seen Patient's CBC showed leukocytosis, urine is pending but at this time I do not have any source for infection, patient is not febrile Patient reports improvement of her symptoms We will p.o. trial Time: 14:20 Reevaluation #2: Patient reports improvement of her symptoms, reports that the weakness has resolved Tolerated p.o. Able to ambulate in the emergency room without assistance She feels strong enough to go home at this time patient has remained in the emergency room for almost 3 hours without any signs of hemodynamic instability and I think she can be safely discharged home Return precautions discussed with patient at bedside. Recommended the patient to follow-up with her PCP. Possibly symptoms were secondary to dehydration. Will DC home Time: 14:38 Medications Administered Discontinued Medications Generic Name Dose Route Start Last Admin Trade Name Aleksanderq PRN Reason Stop Dose Admin Sodium Chloride 500 mls @ 999 mls/hr 05/04/23 12:00 05/04/23 13:16 Ns IV 05/04/23 12:30 Infused .Q31M COLLINS Infusion Iohexol 100 ml 05/04/23 13:52 05/04/23 13:52 Iohexol 350 Mg/Ml 100 Ml Infus..Btl IV 05/04/23 13:53 65 ml ONCE ONE Administration Ondansetron HCl 4 mg 05/04/23 12:18 05/04/23 12:31 Ondansetron Hcl 4 Mg/2 Ml Vial IVPUSH 05/04/23 12:19 4 mg ONCE ONE Administration Medical Decision Making Medical Decision Making [facility] Narrative: 73 years old presenting for weakness. On triage note it says patient had an episode of syncope however this was denied by patient at bedside. Possible differential diagnosis include viral syndrome, anemia, electrolyte imbalance, TRINI, dehydration less likely ACS or PE Plan CBC, CMP, magnesium level, D-dimer and troponin, COVID flu RSV Chest x-ray EKG IV fluids Zofran Continue cardiac monitor technician Admission/Observation Consideration of admission/observation: Escalation of care including admission/observation considered Lab Data MDM Lab Attestation statement: I reviewed the patient's lab results. Blood work is unremarkable. 05/04/23 12:25 05/04/23 12:25 Labs: Lab Results 05/04/23 05/04/23 05/04/23 Range/Units 12:22 12:25 12:28 WBC 14.9 H (4.8-10.8) X10*3/uL RBC 2.52 L (4.20-5.50) X10*6/uL Hgb 7.4 L (12.0-16.0) g/dl Hct 22.6 L (37.0-47.0) % MCV 89.7 (80.0-98.0) fL MCH 29.4 (27.0-33.0) pg MCHC 32.7 (31.0-35.0) g/dl RDW 16.3 H (11.0-16.0) % Plt Count 372 D (160-400) X10*3/uL MPV Not Reportable Immature Gran % (Auto) Cancelled Neut % (Auto) Cancelled Lymph % (Auto) Cancelled Clare % (Auto) Cancelled Eos % (Auto) Cancelled Baso % (Auto) Cancelled Lymph # (Auto) Cancelled Clare # (Auto) Cancelled Eos # (Auto) Cancelled Baso # (Auto) Cancelled Abs Immat Gran (auto) Cancelled Absolute Neuts (auto) Cancelled Absolute Nucleated RBC 0.390 H (0.0-0.012) X10*3/uL Nucleated RBC % (auto) 2.6 H (0.0-0.2) /100WBC Neutrophils % (Manual) 58 (45-73) % Band Neutrophils % 0 L (3-5) % Lymphocytes % (Manual) 28 (20-40) % Monocytes % (Manual) 2 (2-11) % Basophils % (Manual) 2 (0-2) % Promyelocytes % 1 % Blast Cells % (Manual) 9 % Abs Neuts (Manual) 8.6 H (2.0-8.3) X10*3/uL Lymphocytes # (Manual) 4.2 (1.2-4.9) X10*3/uL Monocytes # (Manual) 0.3 (0.1-1.2) X10*3/uL Basophils # (Manual) 0.3 H (0.0-0.2) X10*3/uL Promyelocytes # 0.1 X10*3/uL Blast Cells # 1.3 X10*3/uL Nucleated RBCs 1 H (0-0) /100WBC Platelet Estimate NORMAL (NORMAL) Large Platelets PRESENT Plt Morphology Comment NOTED RBC Morphology NOTED Polychromasia 1+ (0-2) /OIF Macrocytosis 1+ (5-14) /OIF D-Dimer High Sensitivty 752 NG/ML VBG pH 7.44 H (7.32-7.43) VBG pCO2 38 mmHg VBG pO2 57 mmHg VBG HCO3 26 (22-26) mmol/L VBG O2 Saturation 94.0 % VBG Base Excess 2.4 mmol/L Sodium 140 (135-145) mmol/L Potassium 4.3 (3.3-5.1) mmol/L Chloride 106 (96-108) mmol/L Carbon Dioxide 26 (22-29) mmol/L Anion Gap 12 (12-20) BUN 11 (9-16) mg/dL Creatinine 0.82 (0.5-1.4) mg/dL Estim Creat Clear Calc 45.6 Estimated GFR > 60 POC Glucose 127 H (60-115) mg/dL Random Glucose 150 H (60-115) mg/dL Calcium 9.2 (8.4-10.2) mg/dL Magnesium 1.7 (1.6-2.6) mg/dL Total Bilirubin 0.4 (0.0-1.0) mg/dL AST 18 (5-31) U/L ALT 14 (0-31) U/L Alkaline Phosphatase 121 H (39-117) U/L Troponin I High Sens 8.5 (<3.5-17.0) ng/L B-Natriuretic Peptide 25 (<100) pg/mL Total Protein 5.4 L (6.5-8.0) g/dL Albumin 3.7 (3.5-5.0) g/dL Urine Color Urine Appearance Urine pH (5.0-9.0) Ur Specific [place] (1.005-1.025) Urine Protein (Neg-Trace) mg/dL Urine Glucose (UA) (Negative) mg/dL Urine Ketones (Negative) mg/dL Urine Blood (Negative) Urine Nitrite (Negative) Ur Leukocyte Esterase (Negative) Influenza Type A (PCR) NEGATIVE (Negative) Influenza Type B (PCR) NEGATIVE (Negative) RSV RNA Qual (PCR) NEGATIVE (Negative) SARS-CoV-2 RNA (RT-PCR) NEGATIVE (Negative) 05/04/23 Range/Units 14:15 WBC (4.8-10.8) X10*3/uL RBC (4.20-5.50) X10*6/uL Hgb (12.0-16.0) g/dl Hct (37.0-47.0) % MCV (80.0-98.0) fL MCH (27.0-33.0) pg MCHC (31.0-35.0) g/dl RDW (11.0-16.0) % Plt Count (160-400) X10*3/uL MPV Immature Gran % (Auto) Neut % (Auto) Lymph % (Auto) Clare % (Auto) Eos % (Auto) Baso % (Auto) Lymph # (Auto) Clare # (Auto) Eos # (Auto) Baso # (Auto) Abs Immat Gran (auto) Absolute Neuts (auto) Absolute Nucleated RBC (0.0-0.012) X10*3/uL Nucleated RBC % (auto) (0.0-0.2) /100WBC Neutrophils % (Manual) (45-73) % Band Neutrophils % (3-5) % Lymphocytes % (Manual) (20-40) % Monocytes % (Manual) (2-11) % Basophils % (Manual) (0-2) % Promyelocytes % % Blast Cells % (Manual) % Abs Neuts (Manual) (2.0-8.3) X10*3/uL Lymphocytes # (Manual) (1.2-4.9) X10*3/uL Monocytes # (Manual) (0.1-1.2) X10*3/uL Basophils # (Manual) (0.0-0.2) X10*3/uL Promyelocytes # X10*3/uL Blast Cells # X10*3/uL Nucleated RBCs (0-0) /100WBC Platelet Estimate (NORMAL) Large Platelets Plt Morphology Comment RBC Morphology Polychromasia /OIF Macrocytosis /OIF D-Dimer High Sensitivty NG/ML VBG pH (7.32-7.43) VBG pCO2 mmHg VBG pO2 mmHg VBG HCO3 (22-26) mmol/L VBG O2 Saturation % VBG Base Excess mmol/L Sodium (135-145) mmol/L Potassium (3.3-5.1) mmol/L Chloride (96-108) mmol/L Carbon Dioxide (22-29) mmol/L Anion Gap (12-20) BUN (9-16) mg/dL Creatinine (0.5-1.4) mg/dL Estim Creat Clear Calc Estimated GFR POC Glucose (60-115) mg/dL Random Glucose (60-115) mg/dL Calcium (8.4-10.2) mg/dL Magnesium (1.6-2.6) mg/dL Total Bilirubin (0.0-1.0) mg/dL AST (5-31) U/L ALT (0-31) U/L Alkaline Phosphatase (39-117) U/L Troponin I High Sens (<3.5-17.0) ng/L B-Natriuretic Peptide (<100) pg/mL Total Protein (6.5-8.0) g/dL Albumin (3.5-5.0) g/dL Urine Color Yellow Urine Appearance Clear Urine pH 7.5 (5.0-9.0) Ur Specific [place] 1.020 (1.005-1.025) Urine Protein Negative (Neg-Trace) mg/dL Urine Glucose (UA) Negative (Negative) mg/dL Urine Ketones Negative (Negative) mg/dL Urine Blood Negative (Negative) Urine Nitrite Negative (Negative) Ur Leukocyte Esterase Negative (Negative) Influenza Type A (PCR) (Negative) Influenza Type B (PCR) (Negative) RSV RNA Qual (PCR) (Negative) SARS-CoV-2 RNA (RT-PCR) (Negative) Independent Interpretation I performed an independent interpretation of an: EKG (Personally reviewed the EKG: Sinus tachycardia), Plain X-Ray (Personally reviewed chest x-ray, no consolidation) and CT Scan (No PE seen on CT scan, images were independently reviewed by me) Radiology Impression Discussion of test interpretation with radiology: I have reviewed the radiologist's reading. Independent Historian Clinical information obtained from an independent historian. History obtained from or confirmed by: Friend (Friend's confirmed that patient did not syncopized) External Record Review External record reviewed: Inpatient record Discharge Plan Discharge Clinical Impression: Acute dehydration, Weakness Patient Disposition: Home, Self-Care Additional Instructions: You were seen in the emergency room for weakness. Your lab work including CBC, BMP, UA was unremarkable except for mild leukocytosis. CT angio chest was negative for pulmonary embolism or pneumonia At this time we feel that you can be safely discharged home. Follow-up with your primary care physician within the next few days. If your symptoms return or if you develop a fever, shortness of breath, chest pain return to the emergency room for evaluation Continue your home meds. Prescriptions: No Action albuterol sulfate 90 mcg/actuation HFA aerosol inhaler 1 puff inhalation Q4H PRN (Reason: Wheezing) omeprazole 40 mg capsule,delayed release(DR/EC) 40 mg PO BID Serevent Diskus 50 mcg/dose blister with device 1 inh inhalation Q12H levofloxacin 500 mg tablet 500 mg PO DAILY cholecalciferol (vitamin D3) 25 mcg (1,000 unit) tablet 25 mcg PO DAILY potassium chloride 20 mEq tablet extended release 20 meq PO DAILY cyanocobalamin (vitamin B-12) 1,000 mcg tablet 1,000 mcg PO DAILY trazodone 100 mg tablet 100 mg PO BEDTIME acyclovir 400 mg tablet 400 mg PO BID levothyroxine 125 mcg tablet 125 mcg PO DAILY@0600 paroxetine HCl 20 mg tablet 20 mg PO DAILY lorazepam 0.5 mg tablet 0.5 mg PO DAILY PRN (Reason: anxiety)
[2023-05-04 12:14] VITALS: TEMP 37.1
[2023-05-04] MEDS: 0.9 % Sodium Chloride 500 ML 999 ML IV (12:28)
[2023-05-04 12:29] LABS: Glucose, Whole Blood 127 mg/dL (60-115)
[2023-05-04] MEDS: ondansetron HCL 4 MG/2 ML VIAL IVPUSH (12:31)
[2023-05-04 12:33] LABS: Hematocrit 22.6 % (37.0-47.0); Hemoglobin 7.4 g/dl (12.0-16.0); Mean Corpuscular HGB Conc 32.7 g/dl (31.0-35.0); Mean Corpuscular Hemoglobin 29.4 pg (27.0-33.0); Mean Corpuscular Volume 89.7 fL (80.0-98.0); PLT CLUMP 1; Red Blood Count 2.52 X10*6/uL (4.20-5.50); Red Cell Distribution Width 16.3 % (11.0-16.0)
[2023-05-04 12:34] LABS: NRBC Pct Auto 2.6 /100WBC (0.0-0.2); WBC ABN SCTR FOR CBC 1
[2023-05-04 12:35] LABS: VBG Base Excess 2.4 mmol/L; VBG HCO3 26 mmol/L (22-26); VBG pCO2 38 mmHg; VBG pH 7.44 (7.32-7.43); VBG pO2 57 mmHg
[2023-05-04 12:36] VITALS: TEMP 37
[2023-05-04 12:41] LABS: D Dimer High Sensitivity 752 NG/ML
[2023-05-04 12:42] LABS: Venous Blood Gas Refer to POC result
--- NOTE | 2023-05-04 12:49 | PC.NURSE ---
a&ox4. vss and up to date aside from being sinus tachy on the teletypesetter monitor - 110sbpm. pt warm to the touch. rectal temp obtained - afebrile. pt presents to the ED d/t sudden onset generalized weakness. pt denies feeling dizzy/lightheaded/headache. power port accessed in the right side of pt's chest - patent/intact. labs obtained/sent to lab. IVF/medication administered per provider order. ekg performed by tech. chest xray completed. no sob/wob noted on RA. respirations even and unlabored. pt's friend bedside for support. call acosta placed within reach.
[2023-05-04 12:50] LABS: Alanine Aminotransferase 14 U/L (0-31); Albumin Level 3.7 g/dL (3.5-5.0); Alkaline Phosphatase 121 U/L (39-117); Anion Gap 12 (12-20); Aspartate Amino Transferase 18 U/L (5-31); Bilirubin Total 0.4 mg/dL (0.0-1.0); Blood Urea Nitrogen 11 mg/dL (9-16); Calcium 9.2 mg/dL (8.4-10.2); Carbon Dioxide 26 mmol/L (22-29); Chloride 106 mmol/L (96-108); Creatinine Clr Calc Pharmacy 45.6; Estimated Glomerular Filt Rate > 60; Glucose Random 150 mg/dL (60-115); Magnesium 1.7 mg/dL (1.6-2.6); Potassium 4.3 mmol/L (3.3-5.1); Sodium 140 mmol/L (135-145); Total Protein 5.4 g/dL (6.5-8.0)
[2023-05-04 12:54] LABS: B Type Natriuretic Peptide 25 pg/mL (<100); Troponin-I High Sensitivity 8.5 ng/L (<3.5-17.0)
[2023-05-04 13:24] LABS: Basophils Percent Manual 2 % (0-2); Blast Percent 9 %; Lymphocytes Percent Manual 28 % (20-40); Monocytes Percent Manual 2 % (2-11); Neutrophils Percent Manual 58 % (45-73); Promyelocytes Percent 1 %
[2023-05-04 13:25] LABS: Band Neutrophils Percent 0 % (3-5); Nucleated Red Blood Cells 1 /100WBC (0-0)
[2023-05-04 13:29] LABS: Macrocytosis 1+ (5-14) /OIF; RBC Morphology NOTED
[2023-05-04 13:30] LABS: Polychromasia 1+ (0-2) /OIF
[2023-05-04 13:34] LABS: Large Platelet PRESENT; Platelet Estimate NORMAL (NORMAL); Platelet Morphology Comment NOTED
[2023-05-04 13:35] LABS: Influenza A PCR NEGATIVE (Negative); Influenza B PCR NEGATIVE (Negative); Resp Syncy Virus RNA Qual PCR NEGATIVE (Negative); SARS COV2 PCR INHOUSE NEGATIVE (Negative)
[2023-05-04 13:38] LABS: Platelet Count 372 X10*3/uL (160-400)
--- NOTE | 2023-05-04 13:41 | PC.NURSE ---
pt to CT at this time.
[2023-05-04 13:50] LABS: Basophils Abs Manual 0.3 X10*3/uL (0.0-0.2); Blastocytes Absolute 1.3 X10*3/uL; Lymphocytes Absolute Manual 4.2 X10*3/uL (1.2-4.9); Monocytes Absolute Manual 0.3 X10*3/uL (0.1-1.2); Neutrophils Absolute Manual 8.6 X10*3/uL (2.0-8.3); Promyelocytes Absolute 0.1 X10*3/uL; White Blood Count 14.9 X10*3/uL (4.8-10.8)
[2023-05-04] MEDS: iohexoL 350 MG/ML 100 ML INFUS..BTL IV (13:52)
[2023-05-04 14:11] VITALS: BP 103/52; PULSE 84; RESP 16; O2SAT 98
--- NOTE | 2023-05-04 14:14 | PC.NURSE ---
vss and up to date aside from being slightly hypotensive. nsr on the boat ride operator. pt states she is feeling much better after complete fluid administration. denies pain. respirations remain even and unlabored. pt waiting for results to xray/CT at this time. plan of care ongoing. call acosta placed within reach.
[2023-05-04 14:21] LABS: Appearance Urine Clear; Color Urine Yellow; Glucose Urine UA Negative (Negative); Leukocyte Esterase Urine Negative (Negative); Nitrite Urine Negative (Negative); PH 7.5 (5.0-9.0); Urine Blood Negative (Negative); Urine Ketones Negative (Negative); Urine Protein Negative (Neg-Trace)
--- NOTE | 2023-05-04 14:44 | PC.NURSE ---
ambulation trial performed w/ ED provider - per provider - pt ambulated w/ a strong/steady gait. 1:1 assist needed. pt ready to be d/c'd.
== END 2023-05-04 15:13 | disposition home or self-care (01) ==
PROVIDERS: Emergency Provider Student in an Organized Health Care Education/Training Program; PCP Internal Medicine Medical Oncology
DX: E86.0 Dehydration (principal); R53.1 Weakness; R06.02 Shortness of breath; R00.0 Tachycardia, unspecified; R11.2 Nausea with vomiting, unspecified; Z11.52 Encounter for screening for COVID-19; Z20.822 Contact with and (suspected) exposure to COVID-19; Z79.899 Other long term (current) drug therapy
CPT/HCPCS: 0241U; 36415; 71045; 71275; 80053; 81003; 82803; 82947; 83735; 83880; 84484; 85007; 85027; 85379; 93005; 96361; 96374; 99284; 99285; J2405; Q9967

== ENCOUNTER → 2023-05-04 11:58 | Outpatient (BNV) | payer MEDICARE, SELFPAY | PROVIDERS: Emergency Provider Student in an Organized Health Care Education/Training Program; PCP Internal Medicine Medical Oncology; Visit Provider Internal Medicine Cardiovascular Disease | DX: R00.0 Tachycardia, unspecified (principal) | CPT/HCPCS: 93010 ==

== ENCOUNTER 2023-06-05 14:37 | Emergency (ER) | payer MEDICARE, SELFPAY ==
--- NOTE | ~2023-06-05 | XR_ITS ---
EXAMINATION: XR CHEST CLINICAL INFORMATION: Cough and congestion COMPARISON: Previous chest x-ray and chest CT April 2023 TECHNIQUE: Frontal view of the chest was obtained. FINDINGS: Cardiac and mediastinal contours are stable. The lungs are well-inflated. The lungs are clear. No pleural effusion or pneumothorax. Right jugular port with tip projecting over SVC. Postsurgical changes to the cervical spine. XR/XR chest 1V IMPRESSION: No evidence for acute disease in the chest.
[2023-06-05 14:48] VITALS: BP 113/62; BP 97/52; PULSE 107; PULSE 99; RESP 22; TEMP 36.9; O2SAT 98; BMI 16.9
[2023-06-05 17:09] LABS: Influenza A PCR NEGATIVE (Negative); Influenza B PCR NEGATIVE (Negative); Resp Syncy Virus RNA Qual PCR NEGATIVE (Negative); SARS COV2 PCR INHOUSE NEGATIVE (Negative)
--- NOTE | 2023-06-05 17:17 | ED_ITS ---
HPI - General Adult General Chief complaint: Dyspnea Stated complaint: CONGESTION COUGH LEUKEMIA PT Time Seen by Provider: 06/05/23 17:10 History of Present Illness HPI narrative: The patient is a 73-year-old woman who is receiving treatment for leukemia through [facility]. Her oncologist is Dr. Wolff. She says that for the last 3 or 4 days she has had cough, some sputum production, and shortness of breath. Patient has been a lifelong smoker and still smokes. She does not know if she has had a fever. She says that she had a blood transfusion of 2 units at [facility] 3 days ago on . She was not having these symptoms at that time. The symptoms began not long after the blood transfusion. Related Data Home Medications ?Medication ?Instructions ?Recorded ?Confirmed acyclovir 400 mg tablet 400 mg PO BID 01/31/20 02/02/23 levothyroxine 125 mcg tablet 125 mcg PO DAILY@0600 01/31/20 02/02/23 paroxetine HCl 20 mg tablet 20 mg PO DAILY 01/31/20 02/02/23 trazodone 100 mg tablet 100 mg PO BEDTIME 01/31/20 02/02/23 lorazepam 0.5 mg tablet 0.5 mg PO DAILY PRN anxiety 03/01/22 02/02/23 albuterol sulfate 90 mcg/actuation 1 puff inhalation Q4H PRN Wheezing 09/20/22 02/02/23 aerosol inhaler cholecalciferol (vitamin D3) 25 25 mcg PO DAILY 02/02/23 02/02/23 mcg (1,000 unit) tablet cyanocobalamin (vitamin B-12) 1,000 mcg PO DAILY 02/02/23 02/02/23 1,000 mcg tablet levofloxacin 500 mg tablet 500 mg PO DAILY 02/02/23 02/02/23 omeprazole 40 mg capsule,delayed 40 mg PO BID 02/02/23 02/02/23 release potassium chloride 20 mEq 20 meq PO DAILY 02/02/23 02/02/23 tablet,extended release salmeterol 50 mcg/dose blister 1 inh inhalation Q12H 02/02/23 02/02/23 powder for inhalation (Serevent Diskus) Previous Rx's ?Medication ?Instructions ?Recorded albuterol sulfate 90 mcg/actuation 2 puff inhalation Q4-6H PRN 06/05/23 aerosol inhaler shortness of breath or wheezing #8.5 grams azithromycin 250 mg tablet 250 mg PO DAILY 4 days #4 tabs 06/05/23 prednisone 20 mg tablet 40 mg (2 x 20 mg) PO DAILY 4 days 06/05/23 #8 tabs Allergies Allergy/AdvReac Type Severity Reaction Status Date / Time adhesive tape Allergy Unknown RASH Verified 06/05/23 14:50 bacitracin [Bacitracin] Allergy Unknown RASH Verified 06/05/23 14:50 Review of Systems 2 Review of Systems: Yes all other systems are reviewed and are negative [facility] Past Medical History Medical History Anemia Anxiety COPD (chronic obstructive pulmonary disease) COPD with asthma Depression Dyspnea Hypothyroidism Non-Hodgkin lymphoma in remission Tobacco dependence Surgical History H/O: hysterectomy History of salpingo-oophorectomy S/P angiogram of extremity (02/13/20) Family History Family History Father CAD (coronary artery disease) Social History Social History Household Members: None Housing: Apartment Do you presently have visiting nurse or other home services: No Alcohol intake: never Patient Tobacco Use Status: Current everyday Tobacco user Tobacco use type: Cigarette Cigarette Packs Per Day: 1 Years Smoked: 40 Second Hand Smoke Exposure: No Advance Directives: Yes Advance Directives on File: Yes Advance Directives Date on File: 07/16/21 service: No Current occupational status: retired Physical Exam ED Vital Signs: Vital Signs - 24 hr 06/05/23 14:48 06/05/23 17:30 06/05/23 18:40 Temperature 98.4 F 98.5 F Pulse Rate 99 94 101 H Respiratory Rate 22 H 14 18 Blood Pressure 97/52 L 90/54 L Pulse Oximetry 98 99 Oxygen Delivery Method Room Air Room Air 06/05/23 19:36 06/05/23 19:37 Temperature 98.7 F 98.7 F Pulse Rate 103 H 103 H Respiratory Rate 24 H 24 H Blood Pressure 103/74 103/74 Pulse Oximetry 94 94 Oxygen Delivery Method Room Air Room Air BMI result Body Mass Index 16.9 Const Other: The patient is a frail looking 73-year-old who was awake and alert. She has a congested-sounding cough which is quite frequent. She does not appear short of breath. HENMT Other: Face is symmetrical. Mucous membranes moist. Eyes Other: Pupils are round equal, conjunctivae clear Neck Other: No JVD Resp Other: Diminished air entry bilaterally without loree wheezes or crackles. Cardio Rate: regular rate Rhythm: regular rhythm Heart sounds: S1 normal heart sound present and S2 normal heart sound present GI Other: Abdomen is soft and nontender Skin Other: Skin is dry and unremarkable Neuro Other: The patient is awake and alert. Mental status is normal. Cranial nerves are grossly intact. She moves her extremities symmetrically. She seems frail but neurologically intact. Extrem Other: No calf swelling or tenderness Medications Administered Discontinued Medications Generic Name Dose Route Start Last Admin Trade Name Freq PRN Reason Stop Dose Admin Albuterol/Ipratropium 3 ml 06/05/23 17:16 06/05/23 17:30 Albuterol/Iprat 2.5/0.5mg 3 Ml Ampul.Neb INHALE 06/05/23 17:17 3 ml ONCE ONE Administration Azithromycin 500 mg 06/05/23 18:40 06/05/23 19:31 Azithromycin 500 Mg Tablet PO 06/05/23 18:41 500 mg ONCE ONE Administration Prednisone 60 mg 06/05/23 18:40 06/05/23 19:31 Prednisone 20 Mg Tablet PO 06/05/23 18:41 60 mg ONCE ONE Administration Medical Decision Making Medical Decision Making [facility] Narrative: The patient is a 73-year-old woman with a history of leukemia. She also has a long history of smoking in his still a smoker and likely has COPD. She presents with a cough and shortness of breath. Clinically she is coughing a lot in the emergency room but she does not seem overtly toxic or septic. I believe this is likely a COPD bronchitis. She was treated with bronchodilator nebulizer treatments and started on prednisone and azithromycin. She felt better. She was instructed in the use of an AeroChamber. She will be discharged with the prescriptions for prednisone, azithromycin, at an albuterol inhaler. Lab Data 06/05/23 17:28 06/05/23 17:28 Labs: Lab Results 06/05/23 06/05/23 Range/Units 16:27 17:28 WBC 2.0 L (4.8-10.8) X10*3/uL RBC 3.12 L D (4.20-5.50) X10*6/uL Hgb 9.1 L D (12.0-16.0) g/dl Hct 26.8 L (37.0-47.0) % MCV 85.9 (80.0-98.0) fL MCH 29.2 (27.0-33.0) pg MCHC 34.0 (31.0-35.0) g/dl RDW 15.0 (11.0-16.0) % Plt Count 28 L D (160-400) X10*3/uL MPV 14.0 H (9.4-12.3) fL Immature Gran % (Auto) 2.0 H (0.0-0.4) % Neut % (Auto) 50.5 (45-73) % Lymph % (Auto) 40.0 (20-40) % [place] % (Auto) 4.0 (2-11) % Eos % (Auto) 2.0 (0-4) % Baso % (Auto) 1.5 (0-2) % Lymph # (Auto) 0.8 L (1.2-4.9) X10*3/uL [place] # (Auto) 0.1 (0.1-1.2) X10*3/uL Eos # (Auto) 0.0 (0.0-0.4) X10*3/uL Baso # (Auto) 0.0 (0.0-0.2) X10*3/uL Abs Immat Gran (auto) 0.04 H (0.00-0.03) X10*3/uL Absolute Neuts (auto) 1.0 L (2.0-8.3) x10*3/uL Absolute Nucleated RBC 0.000 (0.0-0.012) X10*3/uL Nucleated RBC % (auto) 0.0 (0.0-0.2) /100WBC Smear Tech's Comments VERIFIED Sodium 137 (135-145) mmol/L Potassium 5.0 (3.3-5.1) mmol/L Chloride 108 (96-108) mmol/L Carbon Dioxide 21 L (22-29) mmol/L Anion Gap 13 (12-20) BUN 16 (9-16) mg/dL Creatinine 0.79 (0.5-1.4) mg/dL Estim Creat Clear Calc 46.0 Estimated GFR > 60 Random Glucose 102 (60-115) mg/dL Calcium 9.0 (8.4-10.2) mg/dL Magnesium 2.1 (1.6-2.6) mg/dL Total Bilirubin 0.5 (0.0-1.0) mg/dL Direct Bilirubin 0.2 (0.0-0.5) mg/dL AST 13 (5-31) U/L ALT 14 (0-31) U/L Alkaline Phosphatase 122 H (39-117) U/L C-Reactive Protein 4.01 H (< or = 0.50) mg/dL Total Protein 5.4 L (6.5-8.0) g/dL Albumin 3.4 L (3.5-5.0) g/dL Influenza Type A (PCR) NEGATIVE (Negative) Influenza Type B (PCR) NEGATIVE (Negative) RSV RNA Qual (PCR) NEGATIVE (Negative) SARS-CoV-2 RNA (RT-PCR) NEGATIVE (Negative) Discharge Plan Discharge Clinical Impression: Acute exacerbation of chronic obstructive pulmonary disease Patient Disposition: Home, Self-Care Instructions: COPD (Chronic Obstructive Pulmonary Disease) (ED), How to Use a Metered-Dose Inhaler and a Spacer (ED) Additional Instructions: Please use the albuterol inhaler 2 puffs every 4 hours as needed for coughing or shortness of breath. Please use the AeroChamber (spacer) with the inhaler. I have also prescribed prednisone and azithromycin. These should be taken once a day. You received your doses today. Next dose is are tomorrow. Please follow up soon with your regular doctor.. Return to the emergency room if you feel significantly worse. Prescriptions: New azithromycin 250 mg tablet 250 mg PO DAILY 4 Days Qty: 4 0RF Rx Instructions: start on day 2 of therapy prednisone 20 mg tablet 40 mg PO DAILY 4 Days Qty: 8 0RF albuterol sulfate 90 mcg/actuation HFA aerosol inhaler 2 puff inhalation Q4-6H PRN (Reason: shortness of breath or wheezing) Qty: 8.5 0RF No Action albuterol sulfate 90 mcg/actuation HFA aerosol inhaler 1 puff inhalation Q4H PRN (Reason: Wheezing) omeprazole 40 mg capsule,delayed release(DR/EC) 40 mg PO BID Serevent Diskus 50 mcg/dose blister with device 1 inh inhalation Q12H levofloxacin 500 mg tablet 500 mg PO DAILY cholecalciferol (vitamin D3) 25 mcg (1,000 unit) tablet 25 mcg PO DAILY potassium chloride 20 mEq tablet extended release 20 meq PO DAILY cyanocobalamin (vitamin B-12) 1,000 mcg tablet 1,000 mcg PO DAILY trazodone 100 mg tablet 100 mg PO BEDTIME acyclovir 400 mg tablet 400 mg PO BID levothyroxine 125 mcg tablet 125 mcg PO DAILY@0600 paroxetine HCl 20 mg tablet 20 mg PO DAILY lorazepam 0.5 mg tablet 0.5 mg PO DAILY PRN (Reason: anxiety) Referrals: Burt Juarez MD [Primary Care Provider] - (COPD exacerbation) Wse Wolff DO [Physician] - (COPD exacerbation) Interventions: ED Discharge Assessment Last Done: 06/05/23 19:37 Discharge Date/Time: 06/05/23 19:39 Print Language: Malay
[2023-06-05 17:30] VITALS: PULSE 94; RESP 14; O2SAT 97
[2023-06-05] MEDS: Albuterol/Iprat 2.5/0.5MG 3 ML AMPUL.NEB INHALE (17:30)
[2023-06-05 17:47] LABS: Alanine Aminotransferase 14 U/L (0-31); Albumin Level 3.4 g/dL (3.5-5.0); Alkaline Phosphatase 122 U/L (39-117); Anion Gap 13 (12-20); Aspartate Amino Transferase 13 U/L (5-31); Bilirubin Direct 0.2 mg/dL (0.0-0.5); Bilirubin Total 0.5 mg/dL (0.0-1.0); Blood Urea Nitrogen 16 mg/dL (9-16); C Reactive Protein 4.01 mg/dL (< or = 0.50); Carbon Dioxide 21 mmol/L (22-29); Chloride 108 mmol/L (96-108); Estimated Glomerular Filt Rate > 60; Glucose Random 102 mg/dL (60-115); Magnesium 2.1 mg/dL (1.6-2.6); Sodium 137 mmol/L (135-145); Total Protein 5.4 g/dL (6.5-8.0)
[2023-06-05 17:50] LABS: Basophils Percent Auto 1.5 % (0-2); Hematocrit 26.8 % (37.0-47.0); Hemoglobin 9.1 g/dl (12.0-16.0); Imm Gran Abs Auto 0.04 X10*3/uL (0.00-0.03); Lymphocytes Absolute Auto 0.8 X10*3/uL (1.2-4.9); MANUAL DIFF FLAG SCAN; Mean Corpuscular Hemoglobin 29.2 pg (27.0-33.0); Mean Corpuscular Volume 85.9 fL (80.0-98.0); Monocytes Absolute Auto 0.1 X10*3/uL (0.1-1.2); Neutrophils Percent Auto 50.5 % (45-73); Red Blood Count 3.12 X10*6/uL (4.20-5.50); SCAN SMEAR FLAG 1
[2023-06-05 18:02] LABS: Platelet Count 28 X10*3/uL (160-400)
[2023-06-05 18:12] LABS: SLIDE REVIEW VERIFIED
[2023-06-05 18:40] VITALS: BP 90/54; PULSE 101; RESP 18; TEMP 36.9; O2SAT 99
--- NOTE | 2023-06-05 19:17 | PC.NURSE ---
Assumed care of pt. Pt lying on stretcher, no acute distress at this time. Plan for medication and discharge, pt calling for ride.
[2023-06-05] MEDS: predniSONE 20 MG TABLET 60 MG PO (19:31)
[2023-06-05] MEDS: Azithromycin 500 MG TABLET PO (19:31)
[2023-06-05 19:36] VITALS: BP 103/74; PULSE 103; RESP 24; TEMP 37.1; O2SAT 94
[2023-06-05 19:37] VITALS: BP 103/74; PULSE 103; RESP 24; TEMP 37.1; O2SAT 94
== END 2023-06-05 19:39 | disposition home or self-care (01) ==
PROVIDERS: Emergency Provider Emergency Medicine; PCP Internal Medicine Medical Oncology
DX: J44.1 Chronic obstructive pulmonary disease with (acute) exacerbation (principal); C95.90 Leukemia, unspecified not having achieved remission; F17.210 Nicotine dependence, cigarettes, uncomplicated
CPT/HCPCS: 0241U; 36415; 71045; 80048; 80076; 83735; 85025; 86140; 94640; 99284

== ENCOUNTER 2023-07-09 14:15 | Inpatient (IN) | payer MEDICARE, SELFPAY ==
[2023-07-09] VITALS (7 sets, daily range): BP systolic 82–147; BP diastolic 39–124; PULSE 94–120; RESP 17–23; TEMP 37.1–39.4; O2SAT 97–100; BMI 17.3
--- NOTE | ~2023-07-09 | XR_ITS ---
EXAMINATION: XR CHEST CLINICAL INFORMATION: Fever COMPARISON: Chest radiograph 06/05/2023 CT pulmonary angiogram 05/04/2023 TECHNIQUE: Frontal view of the chest was obtained. FINDINGS: Lungs are hyperinflated consistent with emphysema as seen on the prior CT pulmonary angiogram, heart size normal. No infiltrates, effusions or lung masses are seen. A right chest wall jugular port is present with its tip in the SVC. ACDF hardware is present. XR/XR chest 1V IMPRESSION: No acute intrathoracic disease. Emphysema.
--- NOTE | 2023-07-09 14:23 | ED.RECABL ---
HPI - Recheck/Abnormal Lab/Rx General Chief Complaint: Recheck/Abnormal Lab/Rx Stated Complaint: blood transfusion Time Seen by Provider: 07/09/23 16:41 Source: patient, RN notes reviewed and old records reviewed Mode of arrival: ambulatory Limitations: no limitations History of Present Illness HPI narrative: 73-year-old female with past medical history significant for COPD, acute myeloid leukemia, GERD, hyperlipidemia, hypothyroidism peripheral artery disease presents for evaluation of abnormal labs. Patient is currently undergoing oral chemotherapy for her leukemia. She follows by Dr. Juarez at this facility and gets her treatment at [facility] The patient reports having blood work done yesterday and was told to go to the emergency room because her platelet count is ?5. ? She denies any nosebleeds, black or bloody stool, vaginal bleeding She states that last week she blew her nose and there was some blood on the tissue Patient reports that she does have some shortness of breath with exertion She believes she was told to come here for ?a transfusion of platelets. ? Related Data Home Medications ?Medication ?Instructions ?Recorded ?Confirmed acyclovir 400 mg tablet 400 mg PO BID 01/31/20 02/02/23 levothyroxine 125 mcg tablet 125 mcg PO DAILY@0600 01/31/20 02/02/23 paroxetine HCl 20 mg tablet 20 mg PO DAILY 01/31/20 02/02/23 trazodone 100 mg tablet 100 mg PO BEDTIME 01/31/20 02/02/23 lorazepam 0.5 mg tablet 0.5 mg PO DAILY PRN anxiety 03/01/22 02/02/23 albuterol sulfate 90 mcg/actuation 1 puff inhalation Q4H PRN Wheezing 09/20/22 02/02/23 aerosol inhaler cholecalciferol (vitamin D3) 25 25 mcg PO DAILY 02/02/23 02/02/23 mcg (1,000 unit) tablet cyanocobalamin (vitamin B-12) 1,000 mcg PO DAILY 02/02/23 02/02/23 1,000 mcg tablet levofloxacin 500 mg tablet 500 mg PO DAILY 02/02/23 02/02/23 omeprazole 40 mg capsule,delayed 40 mg PO BID 02/02/23 02/02/23 release potassium chloride 20 mEq 20 meq PO DAILY 02/02/23 02/02/23 tablet,extended release salmeterol 50 mcg/dose blister 1 inh inhalation Q12H 02/02/23 02/02/23 powder for inhalation (Serevent Diskus) Previous Rx's ?Medication ?Instructions ?Recorded albuterol sulfate 90 mcg/actuation 2 puff inhalation Q4-6H PRN 06/05/23 aerosol inhaler shortness of breath or wheezing #8.5 grams azithromycin 250 mg tablet 250 mg PO DAILY 4 days #4 tabs 06/05/23 prednisone 20 mg tablet 40 mg (2 x 20 mg) PO DAILY 4 days 06/05/23 #8 tabs Allergies Allergy/AdvReac Type Severity Reaction Status Date / Time adhesive tape Allergy Unknown RASH Verified 07/09/23 14:24 bacitracin [Bacitracin] Allergy Unknown RASH Verified 07/09/23 14:24 Review of Systems Constitutional: Constitutional: Denies body ache(s), Denies chills, Denies fever(s) and Denies headache(s) Eyes: Eyes: Denies blurry vision ENT: Denies headache(s) Cardiovascular: Cardiovascular: Reports dyspnea Respiratory: Respiratory: Denies cough and Reports dyspnea Gastrointestinal: Gastrointestinal: Denies abdominal pain, Denies melena, Denies hematochezia, Denies nausea and Denies vomiting Musculoskeletal: Musculoskeletal: Denies back pain Integumentary/Breasts: Skin/Breast: Denies rash Neurologic: Denies headache(s) [facility] Past Medical History Medical History Anemia Anxiety COPD (chronic obstructive pulmonary disease) COPD with asthma Depression Dyspnea Hypothyroidism Non-Hodgkin lymphoma in remission Tobacco dependence Surgical History H/O: hysterectomy History of salpingo-oophorectomy S/P angiogram of extremity (02/13/20) Family History Family History Father CAD (coronary artery disease) Social History Social History Household Members: None Housing: Apartment Do you presently have visiting nurse or other home services: No Alcohol intake: never Patient Tobacco Use Status: Current everyday Tobacco user Tobacco use type: Cigarette Cigarette Packs Per Day: 1 Years Smoked: 40 Smoked in Last 30 Days: No Second Hand Smoke Exposure: No Advance Directives: Yes Advance Directives on File: Yes Advance Directives Date on File: 07/16/21 Do you have a plan to hurt others: No Plan service: No Current occupational status: retired Physical Exam Vital Signs: Vital Signs: Last Vital Signs Temp 98.8 F 07/09/23 14:21 Pulse 118 H 07/09/23 16:30 Resp 18 07/09/23 16:30 BP 127/56 L 07/09/23 16:30 Pulse Ox 97 07/09/23 16:30 O2 Del Method Room Air 07/09/23 16:30 BMI result Body Mass Index 17.3 Const: General: healthy appearing, comfortable, no acute distress, alert and awake Nutritional Appearance: thin and underweight Orientation/consciousness: patient oriented x3 HEENT: Head: Yes normocephalic and Yes atraumatic Eyes: Eyelids: Yes eyelids normal Conjunctivae: conjunctivae normal Sclerae: sclerae normal Corneas: corneas normal Pupils: Equal, round and reactive pupils present EOM: EOMs intact bilaterally Neck: Neck: Yes full ROM Resp: Effort & Inspection: normal respiratory effort, able to speak in complete sentences and not labored GI: Inspection: No distended Palpation (GI): Soft to palpation, not firm, nontender, no guarding and not rigid Skin: General skin exam: elasticity normal Neuro: General: patient oriented x3 Cranial nerves: Yes Equal, round and reactive pupils present and Yes Bilaterally intact EOM present Cognition (Neuro): normal cognition Course Course Course Narrative: This is a rapid medical exam. Defer additional HPI, ROS, PE to primary provider. My 3-year-old female with history of AML with reports of normal platelets. No reports of bleeding. Patient had labs outpatient today at [facility]. Her oncologist is Dr. Solorzano here at [facility]. She is currently receiving oral chemo. Will repeat labs [facility] Reevaluation(s) Reevaluation #1: Patient has no new complaints, but did spike a fever before starting her blood, plan for blood cultures, lactic acid, UA, chest x-ray. We will treat her with cefepime. There is no evidence of sepsis at this time. The patient likely has neutropenic fever Time: 19:17 Medical Decision Making Medical Decision Making MDM Narrative: 73-year-old female past medical history as documented above presents for evaluation of abnormal labs. On repeat labs today, her white blood cell count is noted to be low at 1.6, there is no left shift. Her hemoglobin is 7.4 with a hematocrit 21.9. This is approximately her baseline. Her platelet count is 4k. Patient has no significant chemistry abnormalities. Electrolytes are within normal limits. Her creatinine is within normal limits. Her BUN is slightly elevated to 24. Alk-phos elevated at 167 and her total protein is low at 5.3. I called Oncology, to discuss with Dr. Juarez. He knows the patient well and believes her pancytopenia is directly related to her chemotherapy medications. He recommends transfusing the patient 2 units of packed red blood cells, 1 unit of platelets and admitting her to the hospitalist that he may see her in the morning Differential Diagnosis Differential Diagnoses: The differential diagnosis associated with the presentation includes Thrombocytopenia Acute myeloid leukemia ITP TTP Normocytic anemia Chemotherapy side effect Admission/Observation Consideration of admission/observation: Escalation of care including admission/observation considered Patient will require admission for platelet transfusion Consult Healthcare Provider Management of the patient was discussed with: Cabinet Worker (Dr. Juarez, oncology) Lab Data [facility] Lab Attestation statement: I reviewed the patient's lab results. See above, pancytopenia 07/09/23 14:34 07/09/23 14:34 Labs: Lab Results 07/09/23 Range/Units 14:34 WBC 1.6 L (4.8-10.8) X10*3/uL RBC 2.45 L D (4.20-5.50) X10*6/uL Hgb 7.4 L (12.0-16.0) g/dl Hct 21.9 L (37.0-47.0) % MCV 89.4 (80.0-98.0) fL MCH 30.2 (27.0-33.0) pg MCHC 33.8 (31.0-35.0) g/dl RDW 14.5 (11.0-16.0) % Plt Count 4 L* D (160-400) X10*3/uL MPV 11.9 (9.4-12.3) fL Immature Gran % (Auto) 0.0 (0.0-0.4) % Neut % (Auto) 23.6 L (45-73) % Lymph % (Auto) 66.9 H (20-40) % [place] % (Auto) 5.7 (2-11) % Eos % (Auto) 1.9 (0-4) % Baso % (Auto) 1.9 (0-2) % Lymph # (Auto) 1.1 L (1.2-4.9) X10*3/uL [place] # (Auto) 0.1 (0.1-1.2) X10*3/uL Eos # (Auto) 0.0 (0.0-0.4) X10*3/uL Baso # (Auto) 0.0 (0.0-0.2) X10*3/uL Abs Immat Gran (auto) 0.00 (0.00-0.03) X10*3/uL Absolute Neuts (auto) 0.4 L (2.0-8.3) x10*3/uL Absolute Nucleated RBC 0.000 (0.0-0.012) X10*3/uL Nucleated RBC % (auto) 0.0 (0.0-0.2) /100WBC Smear Tech's Comments VERIFIED PT 16.6 H (11.1-13.3) SEC INR 1.4 H (0.9-1.1) Sodium 139 (135-145) mmol/L Potassium 4.1 (3.3-5.1) mmol/L Chloride 105 (96-108) mmol/L Carbon Dioxide 22 (22-29) mmol/L Anion Gap 16 (12-20) BUN 24 H (9-16) mg/dL Creatinine 0.99 (0.5-1.4) mg/dL Estim Creat Clear Calc 36.6 Estimated GFR 55 Random Glucose 131 H (60-115) mg/dL Calcium 8.6 (8.4-10.2) mg/dL Total Bilirubin 0.5 (0.0-1.0) mg/dL Direct Bilirubin 0.2 (0.0-0.5) mg/dL AST 9 (5-31) U/L ALT 20 (0-31) U/L Alkaline Phosphatase 167 H (39-117) U/L Total Protein 5.3 L (6.5-8.0) g/dL Albumin 3.6 (3.5-5.0) g/dL Blood Type O Positive Antibody Screen NEGATIVE Crossmatch See Detail Critical Care Time Critical Care Time Critical Care Time: Yes Total Critical Care Time: 35 Attestation: 73-year-old female presents for evaluation of pancytopenia related to leukemia and chemotherapy medications. She requires close monitoring, consultation with specialists, multiple chart evaluations Discharge Plan Discharge Clinical Impression: Acute myeloid leukemia, Fever and neutropenia Patient Disposition: Admitted As Inpatient Print Language: Algerian
[2023-07-09 14:47] LABS: INTERNATIONAL NORM RATIO 1.4 (0.9-1.1); Prothrombin Time 16.6 SEC (11.1-13.3)
[2023-07-09 14:58] LABS: Basophils Percent Auto 1.9 % (0-2); Eosinophils Percent Auto 1.9 % (0-4); Hematocrit 21.9 % (37.0-47.0); Hemoglobin 7.4 g/dl (12.0-16.0); Lymphocytes Absolute Auto 1.1 X10*3/uL (1.2-4.9); Lymphocytes Percent Auto 66.9 % (20-40); MANUAL DIFF FLAG SCAN; Mean Corpuscular HGB Conc 33.8 g/dl (31.0-35.0); Mean Corpuscular Hemoglobin 30.2 pg (27.0-33.0); Mean Corpuscular Volume 89.4 fL (80.0-98.0); Mean Platelet Volume 11.9 fL (9.4-12.3); Monocytes Absolute Auto 0.1 X10*3/uL (0.1-1.2); Monocytes Percent Auto 5.7 % (2-11); Neutrophils Absolute Auto 0.4 x10*3/uL (2.0-8.3); Neutrophils Percent Auto 23.6 % (45-73); Red Blood Count 2.45 X10*6/uL (4.20-5.50); Red Cell Distribution Width 14.5 % (11.0-16.0); SCAN SMEAR FLAG 1
[2023-07-09 15:00] LABS: Alanine Aminotransferase 20 U/L (0-31); Albumin Level 3.6 g/dL (3.5-5.0); Alkaline Phosphatase 167 U/L (39-117); Anion Gap 16 (12-20); Aspartate Amino Transferase 9 U/L (5-31); Bilirubin Direct 0.2 mg/dL (0.0-0.5); Bilirubin Total 0.5 mg/dL (0.0-1.0); Blood Urea Nitrogen 24 mg/dL (9-16); Calcium 8.6 mg/dL (8.4-10.2); Carbon Dioxide 22 mmol/L (22-29); Chloride 105 mmol/L (96-108); Creatinine Clr Calc Pharmacy 36.6; Estimated Glomerular Filt Rate 55; Glucose Random 131 mg/dL (60-115); Potassium 4.1 mmol/L (3.3-5.1); Sodium 139 mmol/L (135-145); Total Protein 5.3 g/dL (6.5-8.0); White Blood Count 1.6 X10*3/uL (4.8-10.8)
[2023-07-09 15:03] LABS: Platelet Count 4 X10*3/uL (160-400)
[2023-07-09 15:23] LABS: SLIDE REVIEW VERIFIED
--- NOTE | 2023-07-09 17:41 | ECG_ITS ---
Test Reason : SOB Blood Pressure : / mmHG Vent. Rate : 107 BPM Atrial Rate : 107 BPM P-R Int : 126 ms QRS Dur : 072 ms QT Int : 326 ms P-R-T Axes : 067 069 071 degrees QTc Int : 435 ms Sinus tachycardia Otherwise normal ECG When compared with ECG of 04-MAY-2023 11:58, No significant change was found Referred By: Phani Rodriguez Electronically Signed By:ETHAN ALLISON MD
--- NOTE | 2023-07-09 18:34 | PC.NURSE ---
pt port in r chest accessed
--- NOTE | 2023-07-09 18:52 | PC.NURSE ---
Report given to Saad Olmstead RN
[2023-07-09] MEDS: cefEPime HCl 2 GM in 0.9 % Sodium Chloride 50 ML IV (20:04)
[2023-07-09] MEDS: Acetaminophen 325 MG TABLET 650 MG PO (20:04)
--- NOTE | 2023-07-09 20:08 | PC.NURSE ---
Pt temp 00.7, PA notified and orders placed. ABX and Tylenol administered.
[2023-07-09 20:22] LABS: Influenza A PCR NEGATIVE (Negative); Influenza B PCR NEGATIVE (Negative); Resp Syncy Virus RNA Qual PCR NEGATIVE (Negative); SARS COV2 PCR INHOUSE NEGATIVE (Negative)
--- NOTE | 2023-07-09 21:29 | PM.IMHP ---
History of Present Illness Date of Service: 07/09/23 Attending physician on admission: Scott Christie Chief Complaint: Abnormal labs Pt is a 73-year-old female with a PMH significant for acute myeloid leukemia on oral chemotherapy, COPD, and HLD who presents to the ED after outpatient labs noted a platelet level of 5. Patient is currently undergoing oral chemotherapy for AML since May at [facility]. Follows with Dr. Juarez here at [facility]. Pt undergoes twice-weekly labs which yesterday found low blood and platelet levels. Overall patient says she feels well and wishes to keep on finding her cancer. Reports she has SOB with standing and exertion, but these have been ongoing for the past 1-2 months and are at baseline. Chronic nonproductive cough at baseline. Denies lightheadedness or dizziness. Denies any recent bleeding: No hemoptysis, hematemesis, hematochezia, or melena. Reports she does not feel feverish or having chills. No nausea, vomiting, abdominal pain. Denies polyuria or dysuria. States she has been eating and drinking well. In the ED pt was febrile up to 103.0, tachycardic up to 20, tachypneic up to 23, and with variable BP as low as 106/41 and high as 147/124. Labs were significant for leukopenia 1.6, normocytic anemia 7.4/21.9, thrombocytopenia of 4, and absolute neutrophils of 0.4. Tested negative for a flu, RSV, COVID. CXR showed no acute intrathoracic disease, but showed emphysema. EKG demonstrated sinus tachycardia of 107 with no evidence of significant ST elevations or depressions. Pt was treated with cefepime, acetaminophen, and IVF. Pt will be admitted to the hospital for treatment and further evaluation of neutropenic fever, thrombocytopenia, and anemia in the setting of acute myeloid leukemia. Review of Systems Review of Systems: SOB, [place] Denies chills or feeling feverish No chest pain/pressure, palpitations Denies nausea, vomiting, abdominal pain No hemoptysis, hematemesis, hematochezia, or melena Denies lightheadedness or dizziness [facility] Medical History Tobacco dependence Dyspnea COPD (chronic obstructive pulmonary disease) Anemia COPD with asthma Anxiety Depression Non-Hodgkin lymphoma in remission Hypothyroidism Family History Father CAD (coronary artery disease) Surgical History S/P angiogram of extremity (02/13/20) History of salpingo-oophorectomy H/O: hysterectomy Social History Household Members: None Housing: Apartment Do you presently have visiting nurse or other home services: No Alcohol intake: never Patient Tobacco Use Status: Current everyday Tobacco user Tobacco use type: Cigarette Cigarette Packs Per Day: 1 Years Smoked: 40 Smoked in Last 30 Days: No Second Hand Smoke Exposure: No Advance Directives: Yes Advance Directives on File: Yes Advance Directives Date on File: 07/16/21 Do you have a plan to hurt others: No Plan service: No Current occupational status: retired Meds Allergies Allergy/AdvReac Type Severity Reaction Status Date / Time adhesive tape Allergy Unknown RASH Verified 07/09/23 14:24 bacitracin [Bacitracin] Allergy Unknown RASH Verified 07/09/23 14:24 Home Medications ?Medication ?Instructions ?Recorded ?Confirmed ?Last Taken ?Type acyclovir 400 mg tablet 400 mg PO BID 01/31/20 02/02/23 02/02/23 History levothyroxine 125 mcg tablet 125 mcg PO DAILY@0600 01/31/20 02/02/23 02/02/23 History paroxetine HCl 20 mg tablet 20 mg PO DAILY 01/31/20 02/02/23 02/02/23 History trazodone 100 mg tablet 100 mg PO BEDTIME 01/31/20 02/02/23 02/01/23 History lorazepam 0.5 mg tablet 0.5 mg PO DAILY PRN anxiety 03/01/22 02/02/23 02/02/23 History albuterol sulfate 90 mcg/actuation 1 puff inhalation Q4H PRN Wheezing 09/20/22 02/02/23 02/02/23 History aerosol inhaler cholecalciferol (vitamin D3) 25 25 mcg PO DAILY 02/02/23 02/02/23 02/02/23 History mcg (1,000 unit) tablet cyanocobalamin (vitamin B-12) 1,000 mcg PO DAILY 02/02/23 02/02/23 02/02/23 History 1,000 mcg tablet levofloxacin 500 mg tablet 500 mg PO DAILY 02/02/23 02/02/23 02/02/23 History omeprazole 40 mg capsule,delayed 40 mg PO BID 02/02/23 02/02/23 02/02/23 History release potassium chloride 20 mEq 20 meq PO DAILY 02/02/23 02/02/23 02/02/23 History tablet,extended release salmeterol 50 mcg/dose blister 1 inh inhalation Q12H 02/02/23 02/02/23 02/02/23 History powder for inhalation (Serevent Diskus) Physical Exam Vital Signs and Narrative: Vital Signs: Last Vital Signs Temp 103.0 F H 07/09/23 21:15 Pulse 98 07/09/23 19:12 Resp 17 07/09/23 19:12 BP 106/41 L 07/09/23 19:12 Pulse Ox 100 07/09/23 19:12 O2 Del Method Nasal Cannula 07/09/23 19:12 O2 Flow Rate 2 07/09/23 19:12 BMI result Body Mass Index 17.3 Constitutional: Alert, frail, cachectic, in no acute distress. Mental Status: Oriented to person, place and time. Eyes: Pupils are equal, round, and reactive to light. Ear, Nose, and Throat: Oropharynx clear, mucous membranes moist. Ears and nose without deformities. Trachea midline. Respiratory: Mild bilateral wheezing. Cardiovascular: S1, S2 regular. No murmurs, rubs, or gallops. Gastrointestinal: Abdomen soft, non-tender, non-distended. Normal bowel sounds. Neurologic: Cranial nerves II-XII are grossly intact bilaterally. No focal neurological deficits. Moves all extremities spontaneously. Skin: Warm, dry. Extremities: No edema. Psychiatric: Normal mood and affect. Results Labs 07/09/23 14:34 07/09/23 14:34 Labs: Laboratory Results - last 24 hr 07/09/23 07/09/23 14:34 19:31 MCV 89.4 MCH 30.2 MCHC 33.8 RDW 14.5 Plt Count 4 L* D MPV 11.9 Immature Gran % (Auto) 0.0 Neut % (Auto) 23.6 L Lymph % (Auto) 66.9 H [place] % (Auto) 5.7 Eos % (Auto) 1.9 Baso % (Auto) 1.9 Lymph # (Auto) 1.1 L [place] # (Auto) 0.1 Eos # (Auto) 0.0 Baso # (Auto) 0.0 Abs Immat Gran (auto) 0.00 Absolute Neuts (auto) 0.4 L Absolute Nucleated RBC 0.000 Nucleated RBC % (auto) 0.0 Smear Tech's Comments VERIFIED PT 16.6 H INR 1.4 H Anion Gap 16 Estim Creat Clear Calc 36.6 Estimated GFR 55 Random Glucose 131 H Lactic Acid 2.0 Calcium 8.6 Total Bilirubin 0.5 Direct Bilirubin 0.2 AST 9 ALT 20 Alkaline Phosphatase 167 H Total Protein 5.3 L Albumin 3.6 Influenza Type A (PCR) NEGATIVE Influenza Type B (PCR) NEGATIVE RSV RNA Qual (PCR) NEGATIVE SARS-CoV-2 RNA (RT-PCR) NEGATIVE Blood Type O Positive Antibody Screen NEGATIVE Crossmatch See Detail Imaging Radiologist's Impressions: Impressions Chest X-Ray 07/09/23 20:06 IMPRESSION: No acute intrathoracic disease. Emphysema. Assessment and Plan (1) Thrombocytopenia: Status: Acute (2) Fever and neutropenia: Status: Acute Plan Pt is a 73-year-old female with a PMH significant for acute myeloid leukemia on oral chemotherapy, COPD, and HLD who presents to the ED after outpatient labs noted a platelet level of 5. Pt will be admitted to the hospital for treatment and further evaluation of neutropenic fever, thrombocytopenia, and anemia in the setting of acute myeloid leukemia. Neutropenic fever Fever of 103.0, WBCs 1.6, absolute neutrophils 400 Likely secondary to chemotherapy for AML No clear source of infection: CXR clear, patient denies N/V/D, abd pain, polyuria, or dysuria Patient meets SIRS criteria: Fever, tachycardia, tachypnea, leukopenia; lactic acid WNL at 2.0 Patient given IVF and started on broad-spectrum antibiotics in the ED Will cover with cefepime and vancomycin, started 07/09/2023 Protonix 40mg bid Check UA Neutropenic precautions, neutropenic diet Oncology consult, follows with Dr. Juarez Follow blood cultures Thrombocytopenia Platelet levels 4 at time of presentation Likely secondary to chemotherapy for AML Will be transfused 1 unit of platelets Follow CBC Anemia H&H 7.4/21.9 Likely secondary to chemotherapy for AML Will be transfused 2 units of blood Follow CBC COPD Not in acute exacerbation Patient with mild expiratory wheezing Chronic cough at baseline; patient denies difficulty breathing Continue home inhalers Hypothyroidism Continue levothyroxine Mood disorder Continue stabilizers Protein calorie malnutrition In the setting of oral chemotherapy Ensure supplements tid Full Code Attending:?Dr. Bradshaw DVT Prophylaxis: Pneumatic boots Med rec pending Pt will require a hospitalization of at least two nights for treatment and further evaluation of neutropenic fever, thrombocytopenia, and anemia in the setting of chemotherapy for acute myeloid leukemia. Due to the severity of patient's pancytopenia and subsequent neutropenic fever, patient will require hospitalization for administration of IV antibiotics, transfusion of blood and platelets, and close monitoring of labs. Quality Stroke Does the patient have a stroke diagnosis?: No VTE Prior VTE?: No VTE Risk Level:: Medical - moderate - high VTE Device Contraindication: N/A - Device Ordered VTE Drug Contraindication: Treatment Not Indicated
--- NOTE | 2023-07-09 22:04 | PC.NURSE ---
per MARYANN Serrano and oncology, proceed with platelets and blood with elevated temperature. Platelets hung per APR
[2023-07-10] VITALS (12 sets, daily range): BP systolic 80–148; BP diastolic 5–65; PULSE 73–110; RESP 14–20; TEMP 36.2–37.8; O2SAT 96–100
[2023-07-10] MEDS: Pantoprazole Sodium 40 MG/10 ML VIAL IVPUSH ×3 (01:28→17:42)
[2023-07-10] MEDS: vancomycin HCL 1,250 MG in 0.9 % Sodium Chloride 250 ML 166.67 MG IV (01:38)
[2023-07-10] MEDS: cefEPime HCl 2 GM in 0.9 % Sodium Chloride 50 ML IV ×2 (08:12→19:36)
[2023-07-10] MEDS: 0.9 % Sodium Chloride Flush 3 ML SYRINGE IVFLUSH ×3 (08:16→19:37)
[2023-07-10 08:28] LABS: Appearance Urine Clear; Color Urine Yellow; Glucose Urine UA Negative (Negative); Leukocyte Esterase Urine Negative (Negative); Nitrite Urine Negative (Negative); Specific Gravity - Urine 1.015 (1.005-1.025); Urine Blood Negative (Negative); Urine Ketones Negative (Negative); Urine Protein Negative (Neg-Trace)
[2023-07-10 08:30] LABS: Bacteria Urine None Seen (None Seen); Hyaline Casts Urine 0-2 /LPF (0-2); RBC Urine 0-2 /HPF (0-2); Squamous Epithelial Cell Urine 0-2 /HPF (0-2); WBC Urine 0-5 /HPF (0-5)
--- NOTE | 2023-07-10 09:06 | PHA.MEDREC ---
Pharmacy Consult ? Medication Reconciliation Pharmacy has completed the medication reconciliation.
--- NOTE | 2023-07-10 09:35 | HO.PM.IMPN ---
Subjective Subjective Date of Service: 07/10/23 Interval History: f/u on neutropenia, pancytopenia interval history: she feels fine, no further fever Physical Exam Vital Signs: Vital Signs: Last Vital Signs Temp 97.4 F 07/10/23 08:49 Pulse 81 07/10/23 08:49 Resp 20 07/10/23 08:49 BP 101/60 07/10/23 08:49 Pulse Ox 96 07/10/23 07:37 O2 Del Method Nasal Cannula 07/10/23 07:37 O2 Flow Rate 2 07/10/23 07:37 BMI result Body Mass Index 17.3 Objective Data Active Medications Acetaminophen (Acetaminophen 325 Mg Tablet) 650 mg PO Q6H PRN PRN Reason: Fever, mild pain, or headache Benzonatate (Benzonatate 100 Mg Capsule) 100 mg PO TID PRN PRN Reason: Cough Docusate Sodium (Docusate Sodium 100 Mg Capsule) 100 mg PO DAILY PRN PRN Reason: Constipation Cefepime HCl 2 gm/ Sodium (Chloride) 50 mls @ 100 mls/hr IV Q12H [facility] Last Infusion: 07/10/23 09:15 Dose: Infused Documented By: SARAI Vancomycin HCl 500 mg/ Sodium (Chloride) 110 mls @ 110 mls/hr IV Q12H [facility] Ondansetron HCl (Ondansetron Hcl 4 Mg/2 Ml Vial) 4 mg IVPUSH Q8H PRN PRN Reason: Nausea and Vomiting Pantoprazole Sodium (Pantoprazole Sodium 40 Mg/10 Ml Vial) 40 mg IVPUSH BID@0630,1630 [facility] Last Admin: 07/10/23 08:07 Dose: 40 mg Documented By: SUNG Pharmacy Consult (Consult Rx Vancomycin Dosing) 1 each MISCELLANE DAILY PRN PRN Reason: Consult order Sodium Chloride (0.9 % Sodium Chloride Flush 3 Ml Syringe) 3 ml IVFLUSH QSHIFT [facility] Last Admin: 07/10/23 08:16 Dose: 3 ml Documented By: SUNG Labs 07/09/23 14:34 07/09/23 14:34 Labs: Laboratory Results - last 24 hr 07/09/23 07/09/23 07/10/23 14:34 19:31 08:21 MCV 89.4 MCH 30.2 MCHC 33.8 RDW 14.5 Plt Count 4 L* D MPV 11.9 Immature Gran % (Auto) 0.0 Neut % (Auto) 23.6 L Lymph % (Auto) 66.9 H [place] % (Auto) 5.7 Eos % (Auto) 1.9 Baso % (Auto) 1.9 Lymph # (Auto) 1.1 L Person # (Auto) 0.1 Eos # (Auto) 0.0 Baso # (Auto) 0.0 Abs Immat Gran (auto) 0.00 Absolute Neuts (auto) 0.4 L Absolute Nucleated RBC 0.000 Nucleated RBC % (auto) 0.0 Smear Tech's Comments VERIFIED PT 16.6 H INR 1.4 H Anion Gap 16 Estim Creat Clear Calc 36.6 Estimated GFR 55 Random Glucose 131 H Lactic Acid 2.0 Calcium 8.6 Total Bilirubin 0.5 Direct Bilirubin 0.2 AST 9 ALT 20 Alkaline Phosphatase 167 H Total Protein 5.3 L Albumin 3.6 Urine Color Yellow Urine Appearance Clear Urine pH 6.0 Ur Specific [place] 1.015 Urine Protein Negative Urine Glucose (UA) Negative Urine Ketones Negative Urine Blood Negative Urine Nitrite Negative Ur Leukocyte Esterase Negative Urine RBC 0-2 Urine WBC 0-5 Ur Squamous Epith Cells 0-2 Urine Bacteria None Seen Hyaline Casts 0-2 Influenza Type A (PCR) NEGATIVE Influenza Type B (PCR) NEGATIVE RSV RNA Qual (PCR) NEGATIVE SARS-CoV-2 RNA (RT-PCR) NEGATIVE Blood Type O Positive Antibody Screen NEGATIVE Crossmatch See Detail Assessment and Plan (1) Thrombocytopenia: Status: Acute (2) Fever and neutropenia: Status: Acute (3) Acute myeloid leukemia: Status: Acute Plan Pt is a 73-year-old female with a PMH significant for acute myeloid leukemia on oral chemotherapy, COPD, and HLD who presents to the ED after outpatient labs noted a platelet level of 5. Pt will be admitted to the hospital for treatment and further evaluation of neutropenic fever, thrombocytopenia, and anemia in the setting of acute myeloid leukemia. Neutropenic fever Fever of 103.0, WBCs 1.6, absolute neutrophils 400 Likely secondary to chemotherapy for AML No clear source of infection: CXR clear, UA clear, patient denies N/V/D, abd pain, polyuria, or dysuria Patient meets SIRS criteria: Fever, tachycardia, tachypnea, leukopenia; lactic acid WNL at 2.0 Patient given IVF and started on broad-spectrum antibiotics in the ED Will cover with cefepime and vancomycin, started 07/09/2023 Protonix 40mg bid Neutropenic precautions, neutropenic diet Oncology consult, follows with Dr. Juarez Follow blood cultures Thrombocytopenia Platelet levels 4 at time of presentation Likely secondary to chemotherapy for AML transfused 1 unit of platelets Follow CBC Anemia H&H 7.4/21.9 Likely secondary to chemotherapy for AML transfused 2 units of blood Follow CBC COPD Not in acute exacerbation Patient with mild expiratory wheezing Chronic cough at baseline; patient denies difficulty breathing Continue home inhalers Hypothyroidism Continue levothyroxine Mood disorder Continue stabilizers Protein calorie malnutrition In the setting of oral chemotherapy Ensure supplements tid Full Code DVT Prophylaxis: Pneumatic boots need for inpatient: neutropenic fever, thrombocytopenia, and anemia in the setting of chemotherapy for acute myeloid leukemia. Due to the severity of patient's pancytopenia and subsequent neutropenic fever, patient will require hospitalization for administration of IV antibiotics, transfusion of blood and platelets, and close monitoring of labs. Quality Stroke Does the patient have a stroke diagnosis?: No VTE Prior VTE?: No VTE Risk Level:: Medical - moderate - high VTE Device Contraindication: N/A - Device Ordered VTE Drug Contraindication: Treatment Not Indicated
[2023-07-10 10:00] LABS: Hemoglobin 7.6 g/dl (12.0-16.0); MANUAL DIFF FLAG SCAN; Monocytes Absolute Auto 0.1 X10*3/uL (0.1-1.2); Neutrophils Absolute Auto 0.2 x10*3/uL (2.0-8.3); PLT CLUMP 1; SCAN SMEAR FLAG 1
[2023-07-10 10:02] LABS: Basophils Percent Auto 2.6 % (0-2); Hematocrit 22.2 % (37.0-47.0); Lymphocytes Absolute Auto 0.8 X10*3/uL (1.2-4.9); Lymphocytes Percent Auto 72.4 % (20-40); Mean Corpuscular HGB Conc 34.2 g/dl (31.0-35.0); Mean Corpuscular Hemoglobin 30.4 pg (27.0-33.0); Mean Corpuscular Volume 88.8 fL (80.0-98.0); Red Cell Distribution Width 14.2 % (11.0-16.0)
[2023-07-10 10:40] LABS: Mean Platelet Volume 9.4 fL (9.4-12.3); Platelet Count 32 X10*3/uL (160-400)
[2023-07-10 10:55] LABS: White Blood Count 1.2 X10*3/uL (4.8-10.8)
[2023-07-10 10:56] LABS: SLIDE REVIEW VERIFIED
--- NOTE | 2023-07-10 12:58 | PM.HEMONCCN ---
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 She later relapsed and was treated with chemotherapy to remission followed by stem cell transplant at [facility]. She later relapsed and was treated with CAR-T therapy at [facility] to durable remission which has been durable. Over the last 2 years a macrocytic anemia evolved into AML. Second malignancies are being seen with CAR-T. She recently had remission induction with chemotherapy at [facility] but did not acheive remission. She is receiving palliatiave chemotherapy with decitibine-cedazuridine (Inqovi) at [facility] with Dr. Grayson. The blood bank at [facility] says she is being transfused with irradiated blood products. Her present blood counts are cell benoit counts from this chemotherapy Review of Systems - Constitutional Reports anorexia, Reports fever(s), Reports weakness - Cardiovascular Reports excessive sweating, Reports fast heart rate, Reports lightheadedness - Respiratory Reports dyspnea on exertion - Gastrointestinal Reports constipation - Genitourinary Reports other - Musculoskeletal Reports stiffness - Neurologic Denies headache(s) [facility] Medical History: Medical History (Last Reviewed 07/10/23 @ 09:13 by Xuan Borrero RN) Anemia Anxiety COPD (chronic obstructive pulmonary disease) COPD with asthma Depression Dyspnea Hypothyroidism Non-Hodgkin lymphoma in remission Tobacco dependence Family History: Family History (Last Reviewed 07/09/23 @ 22:43 by MARYANN Covarrubias) Father CAD (coronary artery disease) Surgical History: Surgical History (Last Reviewed 07/10/23 @ 09:13 by Xuan Borrero RN) H/O: hysterectomy History of salpingo-oophorectomy S/P angiogram of extremity Onset Date: 02/13/20 Social History: Social History (Last Reviewed 07/09/23 @ 22:43 by MARYANN Covarrubias) Living Situation History: Household Members: None Housing: Apartment Do you presently have visiting nurse or other home services: No Alcohol History Details: 1. How often do you have a drink containing alcohol?: a. Never 3. How often do you have six or more drinks on one occasion?: a. Never AUDIT-C Alcohol total score: 0 Currently Displaying Signs/Symptoms of Alcohol Withdrawal: No Tobacco History: Patient Tobacco Use Status: Current everyday Tobacco Tobacco use type: Cigarette Cigarette Packs Per Day: 1 Years Smoked: 40 Smoked in Last 30 Days: No Patient Given Instructions on How to Stop Smoking: No Second Hand Smoke Exposure: No Substance Use History: Use of substances other than those prescribed or required for medical reasons: No Currently Displaying Signs/Symptoms of Drug Intoxication Withdrawal: No Any prior treatment program specific to substance use: No Domestic Abuse History: Have you been hit, kicked, punched, or otherwise hurt by someone within the past year? If so, by whom?: No Do you feel safe in your current relationship?: No Current Relationship Are you made to feel afraid or neglected: No Advance Directives: Advance Directives: Yes Advance Directives on File: Yes Advance Directives Date on File: 07/16/21 Homicidal Assessment: Do you have a plan to hurt others: No Plan Nutrition Assessment: Recently lost weight without trying: No Eating poorly because of decreased appetite: No Nutrition Risks: No Nutritional Risk Patient : No : No Poor oral hygiene: No Occupation Assessmet: service: No Current occupational status: retired Home Medications and Allergies Current Medications: Current Medications Acetaminophen (Acetaminophen 325 Mg Tablet) 650 mg PO Q6H PRN PRN Reason: Fever, mild pain, or headache Benzonatate (Benzonatate 100 Mg Capsule) 100 mg PO TID PRN PRN Reason: Cough Docusate Sodium (Docusate Sodium 100 Mg Capsule) 100 mg PO DAILY PRN PRN Reason: Constipation Cefepime HCl 2 gm/ Sodium (Chloride) 50 mls @ 100 mls/hr IV Q12H [facility] Last Infusion: 07/10/23 09:15 Dose: Infused Vancomycin HCl 500 mg/ Sodium (Chloride) 110 mls @ 110 mls/hr IV Q12H [facility] Ondansetron HCl (Ondansetron Hcl 4 Mg/2 Ml Vial) 4 mg IVPUSH Q8H PRN PRN Reason: Nausea and Vomiting Pantoprazole Sodium (Pantoprazole Sodium 40 Mg/10 Ml Vial) 40 mg IVPUSH BID@0630,1630 [facility] Last Admin: 07/10/23 08:07 Dose: 40 mg Pharmacy Consult (Consult Rx Vancomycin Dosing) 1 each MISCELLANE DAILY PRN PRN Reason: Consult order Sodium Chloride (0.9 % Sodium Chloride Flush 3 Ml Syringe) 3 ml IVFLUSH QSHIFT [facility] Last Admin: 07/10/23 08:16 Dose: 3 ml Home Medications ?Medication ?Instructions ?Recorded ?Confirmed ?Type acyclovir 400 mg tablet 400 mg PO BID 01/31/20 07/10/23 History levothyroxine 125 mcg tablet 125 mcg PO DAILY@0600 01/31/20 07/10/23 History trazodone 100 mg tablet 100 mg PO BEDTIME 01/31/20 07/10/23 History lorazepam 0.5 mg tablet 0.5 mg PO DAILY PRN anxiety 03/01/22 07/10/23 History cyanocobalamin (vitamin B-12) 1,000 mcg PO DAILY 02/02/23 07/10/23 History 1,000 mcg tablet potassium chloride 20 mEq 20 meq PO DAILY 02/02/23 07/10/23 History tablet,extended release fexofenadine 180 mg tablet 180 mg PO DAILY 07/10/23 07/10/23 History (Nahed Allergy) Allergies Allergy/AdvReac Type Severity Reaction Status Date / Time adhesive tape Allergy Unknown RASH Verified 07/09/23 14:24 bacitracin [Bacitracin] Allergy Unknown RASH Verified 07/09/23 14:24 Physical Exam Vital signs: Vital Signs Temp 97.7 F 07/10/23 11:40 Pulse 77 07/10/23 11:40 Resp 20 07/10/23 11:40 BP 148/65 H 07/10/23 11:40 Pulse Ox 96 07/10/23 07:37 O2 Del Method Nasal Cannula 07/10/23 07:37 O2 Flow Rate 2 07/10/23 07:37 Intake & Output 07/09/23 07/10/23 07/10/23 18:59 06:59 18:59 Intake Total 432 / 432 689 / 689 Balance 432 / 432 689 / 689 Intake: Intake (Blood Product) Amount 282 / 282 289 / 289 Plt Aph Pas Pathreduced(E8342) 282 / 282 Unit [id number] Red Blood Cells Aph (E0686) 0 / 0 289 / 289 Unit [id number] Intake, IV Amount 150 / 150 400 / 400 0.9 % Sodium Chloride 100 ml @ 100 / 100 100 / 100 100 mls/hr IV ONCE ONE Rx#: [id number] cefEPime HCl 2 gm In 0.9 % 50 / 50 50 / 50 Sodium Chloride 50 ml @ 100 mls /hr IV Q12H [facility] Rx#:[id number] vancomycin HCL 1,250 mg In 0.9 250 / 250 % Sodium Chloride 250 ml @ 166. 667 mls/hr IV ONCE ONE Rx#: [id number] Other: Number of Unmeasured Voids 3 Last Bowel Movement 07/09/23 Weight 45.813 kg Weight 45.813 kg - Constitutional Present: no acute distress - Routine HEENT Exam Head: Present: atraumatic, normal inspection - Routine Neck Exam Present: supple - Routine Respiratory Exam Present: decreased breath sounds - Routine Cardiovascular Exam Cardiovascular: Present: RRR - Routine Abdominal Exam Present: hypoactive bowel sounds - Routine Extremities Exam Present: normal inspection Hem/Onc Consult Result - Labs CBC & Chem 7: 07/10/23 09:42 07/09/23 14:34 Labs: Short CBC 07/09/23 07/10/23 Range/Units 14:34 09:42 WBC 1.6 L 1.2 L (4.8-10.8) X10*3/uL Hgb 7.4 L 7.6 L (12.0-16.0) g/dl Hct 21.9 L 22.2 L (37.0-47.0) % Plt Count 4 L* D 32 L D (160-400) X10*3/uL BMP 07/09/23 14:34 Sodium 139 Potassium 4.1 Chloride 105 Carbon Dioxide 22 BUN 24 H Creatinine 0.99 Calcium 8.6 Liver Function 07/09/23 Range/Units 14:34 Total Bilirubin 0.5 (0.0-1.0) mg/dL Direct Bilirubin 0.2 (0.0-0.5) mg/dL AST 9 (5-31) U/L ALT 20 (0-31) U/L Alkaline Phosphatase 167 H (39-117) U/L Albumin 3.6 (3.5-5.0) g/dL Urine 07/10/23 Range/Units 08:21 Urine Color Yellow Urine Appearance Clear Urine pH 6.0 (5.0-9.0) Ur Specific [place] 1.015 (1.005-1.025) Urine Protein Negative (Neg-Trace) mg/dL Urine Glucose (UA) Negative (Negative) mg/dL Assessment and Plan Patient Active problem list reviewed?: Yes (1) Acute myeloid leukemia Status: Acute Assessment and plan: She shouldbe transferred back to [facility] for blood products if a hospitalization after today is needed. - Time Spent With Patient Time Spent with Patient (in minutes): 30
[2023-07-10 13:20] LABS: Creatinine Clr Calc Pharmacy 42.6; Estimated Glomerular Filt Rate > 60
--- NOTE | 2023-07-10 13:36 | MHC.CM.PN ---
IMM 07/09. Pt self-care, lives alone at home, uses a cane. Pts friend will transport her home. HCP on file and verified. PCP: Dr. Burt Juarez
[2023-07-10 22:07] LABS: Vancomycin Random 10.1 mcg/mL (15-20)
[2023-07-10] MEDS: ondansetron HCL 4 MG/2 ML VIAL IVPUSH (23:01)
[2023-07-10] MEDS: vancomycin HCL 500 MG in 0.9 % Sodium Chloride 100 ML 110 MG IV (23:02)
[2023-07-10] MEDS: Acyclovir 200 MG CAPSULE 400 MG PO (23:10)
[2023-07-10] MEDS: traZODone HCL 100 MG TABLET PO (23:10)
[2023-07-11] VITALS (8 sets, daily range): BP systolic 80–109; BP diastolic 48–57; PULSE 77–115; RESP 16–20; TEMP 36.1–39; O2SAT 97–99
[2023-07-11] MEDS: Acetaminophen 325 MG TABLET 650 MG PO (01:14)
[2023-07-11] MEDS: Pantoprazole Sodium 40 MG/10 ML VIAL IVPUSH ×2 (05:32→17:39)
[2023-07-11] MEDS: Levothyroxine Sodium 125 MCG TABLET PO (05:32)
[2023-07-11] MEDS: Lactated Ringers 500 ML 999 ML IV (05:52)
[2023-07-11 06:29] LABS: MANUAL DIFF FLAG SCAN; Mean Corpuscular Volume 86.4 fL (80.0-98.0); Monocytes Absolute Auto 0.1 X10*3/uL (0.1-1.2); PLT CLUMP 1; SCAN SMEAR FLAG 1
[2023-07-11 06:31] LABS: Hematocrit 23.5 % (37.0-47.0); Lymphocytes Absolute Auto 0.8 X10*3/uL (1.2-4.9); Lymphocytes Percent Auto 79.4 % (20-40); Mean Corpuscular Hemoglobin 29.4 pg (27.0-33.0); Mean Platelet Volume 10.3 fL (9.4-12.3); Monocytes Percent Auto 7.2 % (2-11); Neutrophils Absolute Auto 0.1 x10*3/uL (2.0-8.3); Neutrophils Percent Auto 12.4 % (45-73); Red Blood Count 2.72 X10*6/uL (4.20-5.50); Red Cell Distribution Width 14.4 % (11.0-16.0)
[2023-07-11] MEDS: Lactated Ringers 1,000 ML 100 ML IVCONT (06:35)
[2023-07-11 06:46] LABS: Platelet Count 18 X10*3/uL (160-400)
[2023-07-11 06:55] LABS: Creatinine Clr Calc Pharmacy 39.8; Estimated Glomerular Filt Rate > 60
[2023-07-11 07:19] LABS: SLIDE REVIEW VERIFIED
[2023-07-11] MEDS: Potassium Chloride ER 20 MEQ TAB.ER.PRT PO (08:33)
[2023-07-11] MEDS: Loratadine 10 MG TABLET PO (08:33)
[2023-07-11] MEDS: Acyclovir 200 MG CAPSULE 400 MG PO ×2 (08:33→20:41)
[2023-07-11] MEDS: Cyanocobalamin (Vitamin B-12) 1,000 MCG TABLET 1000 MCG PO (08:33)
[2023-07-11] MEDS: cefEPime HCl 2 GM in 0.9 % Sodium Chloride 50 ML IV ×2 (08:34→20:37)
[2023-07-11] MEDS: 0.9 % Sodium Chloride Flush 3 ML SYRINGE IVFLUSH (08:34)
--- NOTE | 2023-07-11 10:44 | PM.DS ---
DS: Providers Provider Date of Service: 07/12/23 Date of admission: 07/09/23 22:00 Primary care physician: Burt Juarez MD Consults: 07/09/23 22:14 Consult to Physician Stat Consulting Provider: Burt Juarez Reason for consultation: AML, thrombocytopenia, neutropenic fever DS: Diagnosis Discharge Diagnosis (1) Acute myeloid leukemia: Status: Acute DS: Summary Hospital Course Hospital Course: admit Chief Complaint: Abnormal labs Pt is a 73-year-old female with a PMH significant for acute myeloid leukemia on oral chemotherapy, COPD, and HLD who presents to the ED after outpatient labs noted a platelet level of 5. Patient is currently undergoing oral chemotherapy for AML since May at [facility]. Follows with Dr. Juarez here at [facility]. Pt undergoes twice-weekly labs which yesterday found low blood and platelet levels. Overall patient says she feels well and wishes to keep on finding her cancer. Reports she has SOB with standing and exertion, but these have been ongoing for the past 1-2 months and are at baseline. Chronic nonproductive cough at baseline. Denies lightheadedness or dizziness. Denies any recent bleeding: No hemoptysis, hematemesis, hematochezia, or melena. Reports she does not feel feverish or having chills. No nausea, vomiting, abdominal pain. Denies polyuria or dysuria. States she has been eating and drinking well. In the ED pt was febrile up to 103.0, tachycardic up to 20, tachypneic up to 23, and with variable BP as low as 106/41 and high as 147/124. Labs were significant for leukopenia 1.6, normocytic anemia 7.4/21.9, thrombocytopenia of 4, and absolute neutrophils of 0.4. Tested negative for a flu, RSV, COVID. CXR showed no acute intrathoracic disease, but showed emphysema. EKG demonstrated sinus tachycardia of 107 with no evidence of significant ST elevations or depressions. Pt was treated with cefepime, acetaminophen, and IVF. Pt will be admitted to the hospital for treatment and further evaluation of neutropenic fever, thrombocytopenia, and anemia in the setting of acute myeloid leukemia. Hospital course: Pt is a 73-year-old female with a PMH significant for acute myeloid leukemia on oral chemotherapy, COPD, and HLD who presents to the ED after outpatient labs noted a platelet level of 5. Pt will be admitted to the hospital for treatment and further evaluation of neutropenic fever, thrombocytopenia, and anemia in the setting of acute myeloid leukemia. She had a fever of 103, work up with xray, urine, and blood cultures are negative. She was treated emprically with Cefepime and Vanco, fever have come down, last temp 100.5 and presently afebrile. Given negative blood culture over 48 hours and no obvious source of infection and patient feeling good, i will change Abx to oral Augmentin and Doxcy for 5 more days. Pancytopenia with marked decrese in platlet d/t chemo for AML, Platlets level was 4 on admission, transfused one unit and went up to 32 and has since come down to 18 on 07/10 and 14 today 07/11, no bleeding issues. She will have lab done at [facility] on Wednesday 07/12 Anemia H&H 7.4/21.9 on admission Likely secondary to chemotherapy for AML transfused 2 units of blood, H/H now 10/14 COPD Not in acute exacerbation Patient with mild expiratory wheezing Chronic cough at baseline; patient denies difficulty breathing Continue home inhalers Hypothyroidism Continue levothyroxine Mood disorder Continue stabilizers Protein calorie malnutrition In the setting of oral chemotherapy Ensure supplements tid Time Attestation Discharge Coordination Time (in mins): 35 Quality: Safe Use of Opioids Does Pt have an Active Cancer Diagnosis on the Problem List?: No Quality: Stroke Does the patient have a stroke diagnosis?: No Physical Exam Vital Signs: Vital Signs: Last Vital Signs Temp 97.3 F 07/11/23 07:51 Pulse 84 07/11/23 07:51 Resp 20 07/11/23 07:51 BP 109/52 L 07/11/23 07:51 Pulse Ox 99 07/11/23 07:51 O2 Del Method Room Air 07/11/23 07:51 O2 Flow Rate 2 07/10/23 07:37 BMI result Body Mass Index 17.3 General: AO X 3, no acute distress Resp: CTA bilateral CVS: S1,S2,RRR GI: +BS, NT, no distention Skin: No rash Neuro: motor grossly intact Psych: appropriate affect DS: Data Data Completed and Pending Labs on day of discharge: Laboratory Results - last 24 hr 07/09/23 07/10/2324 14:34 09:42 21:03 WBC 1.2 L RBC 2.50 L Hgb 7.6 L Hct 22.2 L MCV 88.8 MCH 30.4 MCHC 34.2 RDW 14.2 Plt Count 32 L D MPV 9.4 Immature Gran % (Auto) 0.0 Neut % (Auto) 19.0 L Lymph % (Auto) 72.4 H [place] % (Auto) 6.0 Eos % (Auto) 0.0 Baso % (Auto) 2.6 H Lymph # (Auto) 0.8 L [place] # (Auto) 0.1 Eos # (Auto) 0.0 Baso # (Auto) 0.0 Abs Immat Gran (auto) 0.00 Absolute Neuts (auto) 0.2 L Absolute Nucleated RBC 0.000 Nucleated RBC % (auto) 0.0 Smear Tech's Comments VERIFIED Smear Path Review SEE NOTE Creatinine 0.85 Estim Creat Clear Calc 42.6 Estimated GFR > 60 Random Vancomycin 10.1 L Blood Type O Positive Antibody Screen NEGATIVE Crossmatch See Detail 07/11/23 06:16 WBC 1.0 L RBC 2.72 L Hgb 8.0 L Hct 23.5 L MCV 86.4 MCH 29.4 MCHC 34.0 RDW 14.4 Plt Count 18 L* MPV 10.3 Immature Gran % (Auto) 0.0 Neut % (Auto) 12.4 L Lymph % (Auto) 79.4 H [place] % (Auto) 7.2 Eos % (Auto) 0.0 Baso % (Auto) 1.0 Lymph # (Auto) 0.8 L [place] # (Auto) 0.1 Eos # (Auto) 0.0 Baso # (Auto) 0.0 Abs Immat Gran (auto) 0.00 Absolute Neuts (auto) 0.1 L Absolute Nucleated RBC 0.000 Nucleated RBC % (auto) 0.0 Smear Tech's Comments VERIFIED Smear Path Review Creatinine 0.91 Estim Creat Clear Calc 39.8 Estimated GFR > 60 Random Vancomycin Blood Type Antibody Screen Crossmatch Preliminary micro results at discharge 07/09/23 19:31 Blood Culture - Preliminary Blood - Venous No growth after 24 hours. 07/09/23 19:31 Blood Culture - Preliminary Blood - Venous No growth after 24 hours. Discharge Plan Discharge Anticipated Discharge Date/Time: 07/12/23 11:59 Patient Disposition: Home, Self-Care Discharge Diagnosis: Pancytopenia, Fever in neutropenia Referrals: Burt Juarez MD [Primary Care Provider] - 1 Week Discharge Medications: Continued fexofenadine [Nahed Allergy] 180 mg Tablet 180 mg PO DAILY potassium chloride 20 mEq tablet extended release 20 meq PO DAILY Rx Instructions: with food cyanocobalamin (vitamin B-12) 1,000 mcg tablet 1,000 mcg PO DAILY trazodone 100 mg tablet 100 mg PO BEDTIME acyclovir 400 mg tablet 400 mg PO BID levothyroxine 125 mcg tablet 125 mcg PO DAILY@0600 lorazepam 0.5 mg tablet 0.5 mg PO DAILY PRN (Reason: anxiety) Discharge Orders: Discharge Order (Routine); Ordered 07/12/23 Ordered By: Cameron Norman Diet: Advance to usual diet Activity on Discharge: As tolerated Stand Alone Forms: Patient Portal Discharge page Print Language: Urdu Care Plan Goals: Managment of anemia and maintain you normal level of functioning, treatment of AML Health Concerns: Pancytopenia Fever in neutropenia patient AML Plan of Treatment: Take Levaquin and Doxycyline as recommended follow up with your oncologist as scheduled tomorrow follow up with your pcp Assessment: see above
--- NOTE | 2023-07-11 11:00 | HO.PM.IMPN ---
Subjective Subjective Date of Service: 07/11/23 Interval History: f/u on neutropenia, pancytopenia interval history: she feels fine, fever of 102 this morning no soruce of infection Physical Exam Vital Signs: Vital Signs: Last Vital Signs Temp 97.3 F 07/11/23 07:51 Pulse 84 07/11/23 07:51 Resp 20 07/11/23 07:51 BP 109/52 L 07/11/23 07:51 Pulse Ox 99 07/11/23 07:51 O2 Del Method Room Air 07/11/23 07:51 O2 Flow Rate 2 07/10/23 07:37 BMI result Body Mass Index 17.3 General: AO X 3, no acute distress Resp: CTA bilateral CVS: S1,S2,RRR GI: +BS, NT, no distention Skin: No rash Neuro: motor grossly intact Psych: appropriate affect Objective Data Active Medications Acetaminophen (Acetaminophen 325 Mg Tablet) 650 mg PO Q6H PRN PRN Reason: Fever, mild pain, or headache Last Admin: 07/11/23 01:14 Dose: 650 mg Documented By: GENNA Acyclovir (Acyclovir 200 Mg Capsule) 400 mg PO BID [facility] Last Admin: 07/11/23 08:33 Dose: 400 mg Documented By: SAM Benzonatate (Benzonatate 100 Mg Capsule) 100 mg PO TID PRN PRN Reason: Cough Cyanocobalamin (Cyanocobalamin (Vitamin B-12) 1,000 Mcg Tablet) 1,000 mcg PO DAILY [facility] Last Admin: 07/11/23 08:33 Dose: 1,000 mcg Documented By: SAM Docusate Sodium (Docusate Sodium 100 Mg Capsule) 100 mg PO DAILY PRN PRN Reason: Constipation Cefepime HCl 2 gm/ Sodium (Chloride) 50 mls @ 100 mls/hr IV Q12H [facility] Last Infusion: 07/11/23 09:30 Dose: Infused Documented By: SAM Vancomycin HCl 500 mg/ Sodium (Chloride) 110 mls @ 110 mls/hr IV Q12H [facility] Last Infusion: 07/11/23 00:18 Dose: Infused Documented By: GENNA Lactated Ringer's (Lr) 1,000 mls @ 100 mls/hr IVCONT .Q10H [facility] Stop: 07/11/23 14:44 Last Admin: 07/11/23 06:35 Dose: 100 mls/hr Documented By: GENNA Levothyroxine Sodium (Levothyroxine Sodium 125 Mcg Tablet) 125 mcg PO DAILY@0600 [facility] Last Admin: 07/11/23 05:32 Dose: 125 mcg Documented By: GENNA Loratadine (Loratadine 10 Mg Tablet) 10 mg PO DAILY [facility] Last Admin: 07/11/23 08:33 Dose: 10 mg Documented By: SAM Lorazepam (Lorazepam 0.5 Mg Tablet) 0.5 mg PO DAILY PRN PRN Reason: anxiety Ondansetron HCl (Ondansetron Hcl 4 Mg/2 Ml Vial) 4 mg IVPUSH Q8H PRN PRN Reason: Nausea and Vomiting Last Admin: 07/10/23 23:01 Dose: 4 mg Documented By: GENNA Pantoprazole Sodium (Pantoprazole Sodium 40 Mg/10 Ml Vial) 40 mg IVPUSH BID@0630,1630 [facility] Last Admin: 07/11/23 05:32 Dose: 40 mg Documented By: GENNA Pharmacy Consult (Consult Rx Vancomycin Dosing) 1 each MISCELLANE DAILY PRN PRN Reason: Consult order Potassium Chloride (Potassium Chloride Er 20 Meq Tab.Er.Prt) 20 meq PO DAILY [facility] Last Admin: 07/11/23 08:33 Dose: 20 meq Documented By: SAM Sodium Chloride (0.9 % Sodium Chloride Flush 3 Ml Syringe) 3 ml IVFLUSH QSHIFT [facility] Last Admin: 07/11/23 08:34 Dose: 3 ml Documented By: SAM Trazodone HCl (Trazodone Hcl 100 Mg Tablet) 100 mg PO BEDTIME [facility] Last Admin: 07/10/23 23:10 Dose: 100 mg Documented By: GENNA Labs 07/11/23 06:16 07/11/23 06:16 Labs: Laboratory Results - last 24 hr 07/09/23 07/10/23 07/10/23 14:34 09:42 21:03 MCV MCH MCHC RDW Plt Count MPV Immature Gran % (Auto) Neut % (Auto) Lymph % (Auto) [place] % (Auto) Eos % (Auto) Baso % (Auto) Lymph # (Auto) [place] # (Auto) Eos # (Auto) Baso # (Auto) Abs Immat Gran (auto) Absolute Neuts (auto) Absolute Nucleated RBC Nucleated RBC % (auto) Smear Tech's Comments Smear Path Review SEE NOTE Estim Creat Clear Calc 42.6 Estimated GFR > 60 Random Vancomycin 10.1 L Blood Type O Positive Antibody Screen NEGATIVE Crossmatch See Detail 07/11/23 06:16 MCV 86.4 MCH 29.4 MCHC 34.0 RDW 14.4 Plt Count 18 L* MPV 10.3 Immature Gran % (Auto) 0.0 Neut % (Auto) 12.4 L Lymph % (Auto) 79.4 H [place] % (Auto) 7.2 Eos % (Auto) 0.0 Baso % (Auto) 1.0 Lymph # (Auto) 0.8 L [place] # (Auto) 0.1 Eos # (Auto) 0.0 Baso # (Auto) 0.0 Abs Immat Gran (auto) 0.00 Absolute Neuts (auto) 0.1 L Absolute Nucleated RBC 0.000 Nucleated RBC % (auto) 0.0 Smear Tech's Comments VERIFIED Smear Path Review Estim Creat Clear Calc 39.8 Estimated GFR > 60 Random Vancomycin Blood Type Antibody Screen Crossmatch Microbiology Microbiology Results: Microbiology 07/09/23 19:31 Blood Culture - Preliminary Blood - Venous No growth after 24 hours. 07/09/23 19:31 Blood Culture - Preliminary Blood - Venous No growth after 24 hours. Assessment and Plan (1) Thrombocytopenia: Status: Acute (2) Fever and neutropenia: Status: Acute (3) Acute myeloid leukemia: Status: Acute Plan Pt is a 73-year-old female with a PMH significant for acute myeloid leukemia on oral chemotherapy, COPD, and HLD who presents to the ED after outpatient labs noted a platelet level of 5. Pt will be admitted to the hospital for treatment and further evaluation of neutropenic fever, thrombocytopenia, and anemia in the setting of acute myeloid leukemia. Neutropenic fever--persistent fever of 102 Fever of 103.0, WBCs 1, absolute neutrophils 400 Likely secondary to chemotherapy for AML No clear source of infection: CXR clear, UA clear, patient denies N/V/D, abd pain, polyuria, or dysuria Patient meets SIRS criteria: Fever, tachycardia, tachypnea, leukopenia; lactic acid WNL at 2.0 Patient given IVF and started on broad-spectrum antibiotics in the ED Will cover with cefepime and vancomycin, started 07/09/2023 Blood cultures negative at 24, continue Abx until 48hr negative Thrombocytopenia--related to chemo for AML, level was 4 on admission, transfused one unit and went up to 32 and has since come down to 18, will follow up with Matthew Sandoval on tuesday for lab check Anemia H&H 7.4/21.9 Likely secondary to chemotherapy for AML transfused 2 units of blood, H/H now 10/13 COPD Not in acute exacerbation Patient with mild expiratory wheezing Chronic cough at baseline; patient denies difficulty breathing Continue home inhalers Hypothyroidism Continue levothyroxine Mood disorder Continue stabilizers Protein calorie malnutrition In the setting of oral chemotherapy Ensure supplements tid Full Code DVT Prophylaxis: Pneumatic boots need for inpatient: neutropenic fever, thrombocytopenia, and anemia in the setting of chemotherapy for acute myeloid leukemia. Due to the severity of patient's pancytopenia and subsequent neutropenic fever, patient will require hospitalization for administration of IV antibiotics, transfusion of blood and platelets, and close monitoring of labs. Quality Stroke Does the patient have a stroke diagnosis?: No VTE Prior VTE?: No VTE Risk Level:: Medical - moderate - high VTE Device Contraindication: N/A - Device Ordered VTE Drug Contraindication: Treatment Not Indicated
[2023-07-11] MEDS: vancomycin HCL 500 MG in 0.9 % Sodium Chloride 100 ML 110 MG IV ×2 (12:22→23:34)
[2023-07-11] MEDS: traZODone HCL 100 MG TABLET PO (20:41)
[2023-07-11 21:36] LABS: Vancomycin Random 12.1 mcg/mL (15-20)
--- NOTE | 2023-07-11 22:01 | HE.PHANOTE ---
NYASIA BAXTER Patients level came back this morning at 12.1. Will continue with current dose. Next level 07/11 @2100
[2023-07-12] VITALS: BP 109/53; PULSE 84; RESP 14; TEMP 37.4; O2SAT 98
[2023-07-12 03:40] VITALS: BP 116/55; PULSE 88; RESP 16; TEMP 37.9; O2SAT 98
[2023-07-12 05:24] VITALS: TEMP 38.1
[2023-07-12] MEDS: Acetaminophen 325 MG TABLET 650 MG PO (05:33)
[2023-07-12] MEDS: Levothyroxine Sodium 125 MCG TABLET PO (05:33)
[2023-07-12] MEDS: Pantoprazole Sodium 40 MG/10 ML VIAL IVPUSH (05:33)
--- NOTE | 2023-07-12 05:45 | PC.NURSE ---
[employer] alerted this nurse of pt oral temp 100.5. pt asymptomatic, denies complaints at this time. tylenol given per prn order. MD notified. pt call acosta in reach. plan of care ongoing.
[2023-07-12 06:27] LABS: Hematocrit 24.5 % (37.0-47.0); Hemoglobin 8.4 g/dl (12.0-16.0); Lymphocytes Absolute Auto 0.8 X10*3/uL (1.2-4.9); MANUAL DIFF FLAG SCAN; Mean Corpuscular HGB Conc 34.3 g/dl (31.0-35.0); Mean Corpuscular Hemoglobin 29.6 pg (27.0-33.0); Mean Corpuscular Volume 86.3 fL (80.0-98.0); Mean Platelet Volume 11.5 fL (9.4-12.3); Monocytes Absolute Auto 0.1 X10*3/uL (0.1-1.2); Neutrophils Absolute Auto 0.2 x10*3/uL (2.0-8.3); Red Blood Count 2.84 X10*6/uL (4.20-5.50); Red Cell Distribution Width 14.3 % (11.0-16.0); SCAN SMEAR FLAG 1
[2023-07-12 06:32] LABS: Platelet Count 14 X10*3/uL (160-400)
[2023-07-12 06:46] LABS: Creatinine Clr Calc Pharmacy 44.1; Estimated Glomerular Filt Rate > 60
[2023-07-12 06:47] LABS: SLIDE REVIEW VERIFIED
[2023-07-12 07:28] LABS: Glucose, Whole Blood 123 mg/dL (60-115)
[2023-07-12 08:00] VITALS: BP 99/54; PULSE 88; RESP 20; TEMP 36.8; O2SAT 98
[2023-07-12] MEDS: cefEPime HCl 2 GM in 0.9 % Sodium Chloride 50 ML IV (09:53)
[2023-07-12] MEDS: 0.9 % Sodium Chloride Flush 3 ML SYRINGE IVFLUSH (09:54)
[2023-07-12] MEDS: Loratadine 10 MG TABLET PO (09:54)
[2023-07-12] MEDS: Potassium Chloride ER 20 MEQ TAB.ER.PRT PO (09:54)
[2023-07-12] MEDS: Acyclovir 200 MG CAPSULE 400 MG PO (09:54)
[2023-07-12] MEDS: Cyanocobalamin (Vitamin B-12) 1,000 MCG TABLET 1000 MCG PO (09:54)
--- NOTE | 2023-07-12 11:23 | P.PNIM_ITS ---
Subjective Subjective Date of Service: 07/12/23 Interval History: f/u on neutropenia, pancytopenia interval history: she feels fine, fever of 100.5 no source of infection Physical Exam 2 Vital Signs: Vital Signs: Last Vital Signs Temp 98.2 F 07/12/23 08:00 Pulse 88 07/12/23 08:00 Resp 20 07/12/23 08:00 BP 99/54 L 07/12/23 08:00 Pulse Ox 98 07/12/23 08:00 O2 Del Method Room Air 07/12/23 08:00 O2 Flow Rate 2 07/10/23 07:37 BMI result Body Mass Index 17.3 Objective Data Active Medications Acetaminophen (Acetaminophen 325 Mg Tablet) 650 mg PO Q6H PRN PRN Reason: Fever, mild pain, or headache Last Admin: 07/12/23 05:33 Dose: 650 mg Documented By: GABRIELE Acyclovir (Acyclovir 200 Mg Capsule) 400 mg PO BID [facility] Last Admin: 07/12/23 09:54 Dose: 400 mg Documented By: BRANDT Benzonatate (Benzonatate 100 Mg Capsule) 100 mg PO TID PRN PRN Reason: Cough Cyanocobalamin (Cyanocobalamin (Vitamin B-12) 1,000 Mcg Tablet) 1,000 mcg PO DAILY [facility] Last Admin: 07/12/23 09:54 Dose: 1,000 mcg Documented By: BRANDT Docusate Sodium (Docusate Sodium 100 Mg Capsule) 100 mg PO DAILY PRN PRN Reason: Constipation Cefepime HCl 2 gm/ Sodium (Chloride) 50 mls @ 100 mls/hr IV Q12H [facility] Last Admin: 07/12/23 09:53 Dose: 100 mls/hr Documented By: BRANDT Vancomycin HCl 500 mg/ Sodium (Chloride) 110 mls @ 110 mls/hr IV Q12H [facility] Last Infusion: 07/12/23 00:34 Dose: Infused Documented By: GABRIELE Levothyroxine Sodium (Levothyroxine Sodium 125 Mcg Tablet) 125 mcg PO DAILY@0600 [facility] Last Admin: 07/12/23 05:33 Dose: 125 mcg Documented By: GABRILEE Loratadine (Loratadine 10 Mg Tablet) 10 mg PO DAILY [facility] Last Admin: 05/21/24 09:54 Dose: 10 mg Documented By: BRANDT Lorazepam (Lorazepam 0.5 Mg Tablet) 0.5 mg PO DAILY PRN PRN Reason: anxiety Ondansetron HCl (Ondansetron Hcl 4 Mg/2 Ml Vial) 4 mg IVPUSH Q8H PRN PRN Reason: Nausea and Vomiting Last Admin: 07/10/23 23:01 Dose: 4 mg Documented By: GENNA Pantoprazole Sodium (Pantoprazole Sodium 40 Mg/10 Ml Vial) 40 mg IVPUSH BID@0630,1630 [facility] Last Admin: 07/12/23 05:33 Dose: 40 mg Documented By: GABRIELE Pharmacy Consult (Consult Rx Vancomycin Dosing) 1 each MISCELLANE DAILY PRN PRN Reason: Consult order Potassium Chloride (Potassium Chloride Er 20 Meq Tab.Er.Prt) 20 meq PO DAILY [facility] Last Admin: 07/12/23 09:54 Dose: 20 meq Documented By: BRANDT Sodium Chloride (0.9 % Sodium Chloride Flush 3 Ml Syringe) 3 ml IVFLUSH QSHIFT [facility] Last Admin: 07/12/23 09:54 Dose: 3 ml Documented By: BRANDT Trazodone HCl (Trazodone Hcl 100 Mg Tablet) 100 mg PO BEDTIME [facility] Last Admin: 07/11/23 20:41 Dose: 100 mg Documented By: GABRIELE Labs 07/12/23 06:18 07/12/23 06:18 Labs: Laboratory Results - last 24 hr 07/11/23 07/12/23 07/12/23 20:58 06:18 07:21 MCV 86.3 MCH 29.6 MCHC 34.3 RDW 14.3 Plt Count 14 L* MPV 11.5 Immature Gran % (Auto) 0.0 Neut % (Auto) 15.0 L Lymph % (Auto) 75.0 H [place] % (Auto) 8.0 Eos % (Auto) 0.0 Baso % (Auto) 2.0 Lymph # (Auto) 0.8 L [place] # (Auto) 0.1 Eos # (Auto) 0.0 Baso # (Auto) 0.0 Abs Immat Gran (auto) 0.00 Absolute Neuts (auto) 0.2 L Absolute Nucleated RBC 0.000 Nucleated RBC % (auto) 0.0 Smear Tech's Comments VERIFIED Estim Creat Clear Calc 44.1 Estimated GFR > 60 POC Glucose 123 H Random Vancomycin 12.1 L Microbiology Microbiology Results: Microbiology 07/09/23 19:31 Blood Culture - Preliminary Blood - Venous No growth after 48 hours. 07/09/23 19:31 Blood Culture - Preliminary Blood - Venous No growth after 48 hours. Assessment and Plan (1) Thrombocytopenia: Status: Acute (2) Fever and neutropenia: Status: Acute (3) Acute myeloid leukemia: Status: Acute Plan Pt is a 73-year-old female with a PMH significant for acute myeloid leukemia on oral chemotherapy, COPD, and HLD who presents to the ED after outpatient labs noted a platelet level of 5. Pt will be admitted to the hospital for treatment and further evaluation of neutropenic fever, thrombocytopenia, and anemia in the setting of acute myeloid leukemia. Neutropenic fever--improved fever now 100.5, cultures have been negative. WBC 1, Likely secondary to chemotherapy for AML No clear source of infection: CXR clear, UA clear, patient denies N/V/D, abd pain, polyuria, or dysuria Patient meets SIRS criteria: Fever, tachycardia, tachypnea, leukopenia; lactic acid WNL at 2.0 Patient given IVF and started on broad-spectrum antibiotics in the ED Will cover with cefepime and vancomycin, started 07/09/2023 and will change to Levaquin and Doxy at discharge Blood cultures negative at 24, blood cultures are negative at 48 Thrombocytopenia--related to chemo for AML, level was 4 on admission, transfused one unit and went up to 32 and has since come down to 14, will follow up with Matthew Sandoval on Tuesday for lab check Anemia H&H 7.4/21.9 Likely secondary to chemotherapy for AML transfused 2 units of blood, H/H now 10/14, better than yesterday COPD Not in acute exacerbation Patient with mild expiratory wheezing Chronic cough at baseline; patient denies difficulty breathing Continue home inhalers Hypothyroidism Continue levothyroxine Mood disorder Continue stabilizers Protein calorie malnutrition In the setting of oral chemotherapy Ensure supplements tid Full Code DVT Prophylaxis: Pneumatic boots need for inpatient: neutropenic fever, thrombocytopenia, and anemia in the setting of chemotherapy for acute myeloid leukemia. Due to the severity of patient's pancytopenia and subsequent neutropenic fever, patient will require hospitalization for administration of IV antibiotics, transfusion of blood and platelets, and close monitoring of labs. Quality Stroke Does the patient have a stroke diagnosis?: No VTE Prior VTE?: No VTE Risk Level:: Medical - moderate - high VTE Device Contraindication: N/A - Device Ordered VTE Drug Contraindication: Treatment Not Indicated
[2023-07-12 11:58] VITALS: BP 103/48; PULSE 74; RESP 20; TEMP 37; O2SAT 100
[2023-07-12] MEDS: Amoxicillin/Potassium Clav 875 MG TABLET PO (12:35)
[2023-07-12] MEDS: Doxycycline Monohydrate 100 MG CAPSULE PO (12:35)
--- NOTE | 2023-07-12 13:13 | MHC.CM.PN ---
PT MEDICALLY CLEARED FOR DC HOME, NO [facility] SERVICES ORDERED, FRIEND FOR TRANSPORT
--- NOTE | 2023-07-15 07:37 | P.CDIM_ITS ---
PROVIDER RESPONSE TEXT: To clarify, the appropriate diagnosis supported by the clinical indicators: Moderate QUERY TEXT: PHYSICIAN'S DOCUMENTATION REQUEST Date of Query: 07/11/2023 11:11 AM EDT Patient Name: Merline Srinivasan Admit Date: 07/10/2023 Dear Cameron Norman, A review of the medical record indicates additional documentation may be needed. Please review below and update the documentation accordingly. Clinical indicators: Progress notes within the Plan: protein calorie malnutrition In the setting of oral chemotherapy Ensure supplements tid If possible, please provide additional specificity regarding the severity of the malnutrition using t he above information: Mild Moderate Severe Other (explain) Clinically unable to determine (explain) Thank you, Iraida Manning, CCS, CDIS Use of terms such as suspected, likely, concern for, or probable (associated with a specific diagnosi s that is being evaluated, monitored, or treated as if it exists) are acceptable and can be coded in the inpatient se tting, when documented at the time of discharge. Please use your independent medical judgment in providing your response. THIS QUERY IS PART OF THE PERMANENT MEDICAL RECORD
== END 2023-07-12 16:00 | disposition home or self-care (01) | DRG 809 ==
LOC: HO.ED 17:41 → HO.EDOVER 22:02 → HO.IMC 07-10 07:32
PROVIDERS: Nurse Practitioner Family; Physician Assistant; Admitting Provider Student in an Organized Health Care Education/Training Program; Emergency Provider Internal Medicine; PCP Internal Medicine Medical Oncology; Visit Provider Internal Medicine
DX: D61.810 Antineoplastic chemotherapy induced pancytopenia (principal); C92.00 Acute myeloblastic leukemia, not having achieved remission; E44.0 Moderate protein-calorie malnutrition; Z68.1 Body mass index [BMI] 19.9 or less, adult; J44.9 Chronic obstructive pulmonary disease, unspecified; E78.5 Hyperlipidemia, unspecified; T45.1X5A Adverse effect of antineoplastic and immunosuppressive drugs, initial encounter; E03.9 Hypothyroidism, unspecified; F17.210 Nicotine dependence, cigarettes, uncomplicated; Z71.6 Tobacco abuse counseling; Z20.822 Contact with and (suspected) exposure to COVID-19; Z79.890 Hormone replacement therapy; Z79.899 Other long term (current) drug therapy
CPT/HCPCS: 0241U; 36415; 71045; 80048; 80076; 80202; 81001; 82565; 82947; 83605; 85025; 85610; 86850; 86900; 86901; 86923; 87040; 93005; 99285; C9113; J0692; J2405; J3370; J3371; J7120; P9016; P9073

== ENCOUNTER → 2023-07-09 17:41 | Outpatient (BNV) | payer MEDICARE, SELFPAY | PROVIDERS: Admitting Provider Student in an Organized Health Care Education/Training Program; Emergency Provider Internal Medicine; PCP Internal Medicine Medical Oncology; Visit Provider Internal Medicine Cardiovascular Disease | DX: R00.0 Tachycardia, unspecified (principal); R06.02 Shortness of breath | CPT/HCPCS: 93010 ==

== ENCOUNTER → 2023-07-09 22:00 | Outpatient (BNV) | payer MEDICARE, SELFPAY | PROVIDERS: Admitting Provider Student in an Organized Health Care Education/Training Program; Emergency Provider Internal Medicine; PCP Internal Medicine Medical Oncology; Visit Provider Internal Medicine | DX: D69.6 Thrombocytopenia, unspecified (principal); D70.9 Neutropenia, unspecified; R50.81 Fever presenting with conditions classified elsewhere; C92.00 Acute myeloblastic leukemia, not having achieved remission | CPT/HCPCS: 99223; 99232; 99239; 99499 ==

== ENCOUNTER 2023-07-19 06:55 | Inpatient (IN) | payer MEDICARE, SELFPAY ==
[2023-07-19] VITALS (14 sets, daily range): BP systolic 85–135; BP diastolic 37–79; PULSE 87–131; RESP 15–33; TEMP 36.6–37.9; O2SAT 94–100; BMI 18.0
--- NOTE | ~2023-07-19 | CT_ITS ---
EXAMINATION: CT HEAD WITHOUT CONTRAST CLINICAL INFORMATION: Fall. Low platelets. COMPARISON: None available. TECHNIQUE: Contiguous axial imaging was performed from the skull base to vertex without intravenous administration of contrast. This CT examination was performed using dose optimization techniques as appropriate, variously including the following: *Automated exposure control *Adjustment of mA and/or kV according to patient size (this includes techniques or standardized protocols for targeted exams where dose is matched to indication/reason for exam; i.e. extremities or head) *Use of iterative reconstruction technique DLP: 509 mGy-cm FINDINGS: There is slight prominence to the sulci and ventricles however, no intra or extra-axial fluid collection, hemorrhage, mass, or mass effect. The calvarium is intact. Moderate mucoperiosteal thickening is seen within the ethmoid sinuses. CT/CT head/brain wo IV con IMPRESSION: No fracture or intracranial bleed.
--- NOTE | ~2023-07-19 | CT_ITS ---
EXAMINATION: CT CHEST WITHOUT INTRAVENOUS CONTRAST CLINICAL INFORMATION: Neutropenic fever, hypoxia. COMPARISON: Prior CT 05/04/2023 TECHNIQUE: Multidetector volumetric CT imaging of the chest was done. Axial MIP volume rendering provided. Sagittal and coronal reformatted images were obtained. This CT examination was performed using dose optimization techniques as appropriate, variously including the following: *Automated exposure control *Adjustment of mA and/or kV according to patient size (this includes techniques or standardized protocols for targeted exams where dose is matched to indication/reason for exam; i.e. extremities or head) *Use of iterative reconstruction technique CONTRAST: A noncontrast CT. DLP: 176 mGy-cm FINDINGS: INSPECTOR HEATING AND REFRIGERATION: LINES/TUBES: Port-A-Cath embedded in the right chest wall with its tip in the SVC. LUNGS: Lung parenchyma: Mild panlobar pulmonary emphysema. Interstitial patchy ground-glass opacities right lower lobe, suggesting probable atypical interstitial infiltrate, pneumonia. No dense lobar consolidation. Lung nodules/masses: Bilateral apical pleural thickening, pleural scarring. No lung mass or suspicious spiculated nodules, there are few scattered tiny nonspecific lung nodular densities measuring up to 4 mm or less. AIRWAYS: Trachea and bronchi are normal. PLEURA: No pleural effusion or pneumothorax. MEDIASTINUM AND HARLEY: A few calcified mediastinal and hilar lymph nodes might be an old granulomatous disease. No bulky adenopathy. No mediastinal mass. VESSELS: HEART AND PERICARDIUM: Thoracic aorta is normal in size. Heart is normal in size. No pericardial effusion. There are coronary calcifications. Pulmonary arteries are normal in size. LOWER NECK, AXILLA: The visualized thyroid gland is unremarkable. No axillary mass or adenopathy. VISUALIZED ABDOMEN: Unremarkable. CHEST WALL AND BONES: No chest wall mass. The visualized bony thorax is within normal limits. CT/CT chest wo IV con IMPRESSION: 1. Interstitial patchy ground-glass opacities right lower lobe, suggesting probably atypical infection, interstitial infiltrate pneumonia. No dense lobar consolidation. 2. Mild delgado lobar pulmonary emphysema. 3. No lung mass or suspicious spiculated nodules, there are few scattered tiny nonspecific lung nodular densities measuring up to 4 mm or less. Fleischner criteria does not apply for oncology patients. Further management and/or follow-up should be determined per oncology. 4. Coronary calcification. 5. Calcified mediastinal and hilar lymph nodes might be an old granulomatous disease. 6. Port-A-Cath embedded in the right chest wall with its tip in the SVC.
--- NOTE | ~2023-07-19 | XR_ITS ---
EXAMINATION: XR CHEST CLINICAL INFORMATION: Fever COMPARISON: Previous chest x-ray and chest CT 07/19/2023 TECHNIQUE: Frontal view of the chest was obtained. FINDINGS: Right jugular port with tip projecting over the SVC. Postsurgical changes to the lower cervical spine. The cardiac and mediastinal contours are stable. The lungs are well-inflated. There is bronchial wall thickening seen greatest at the lung bases. No evidence of a lobar pneumonia. There is new blunting at both costophrenic angles questionable for tiny bilateral pleural effusions. No pneumothorax. XR/XR chest 1V IMPRESSION: Bronchial wall thickening at the lung bases. No evidence of lobar pneumonia. Question Tiny bilateral pleural effusions.
--- NOTE | ~2023-07-19 | XR_ITS ---
EXAMINATION: XR CHEST CLINICAL INFORMATION: Cough COMPARISON: Chest 07/09/2023, chest 06/05/2023 TECHNIQUE: AP upright portable view of the chest was obtained. 8:00 AM FINDINGS: The lungs are hyperinflated consistent with emphysema. No focal consolidation, pneumothorax or interstitial pulmonary edema. No pleural effusion. The cardiomediastinal silhouette is within normal limits. A right chest wall jugular port is present with the tip in the superior vena cava. ACDF hardware is present. XR/XR chest 1V IMPRESSION: No acute abnormality.
--- NOTE | ~2023-07-19 | CT_ITS ---
EXAMINATION: CT ABDOMEN AND PELVIS WITH CONTRAST CLINICAL INFORMATION: Febrile neutropenia. COMPARISON: CT abdomen and pelvis 08/03/2022. TECHNIQUE: Multidetector volumetric images were obtained from the superior aspect of the liver through the pubic symphysis following administration 85 mL of Omnipaque 350 intravenous contrast. Sagittal and coronal reformatted images were obtained on the technologist's workstation. Oral contrast: No This CT examination was performed using dose optimization techniques as appropriate, variously including the following: *Automated exposure control *Adjustment of mA and/or kV according to patient size (this includes techniques or standardized protocols for targeted exams where dose is matched to indication/reason for exam; i.e. extremities or head) *Use of iterative reconstruction technique DLP: 314 mGy-cm FINDINGS: LUNG BASES: Reticular and centrilobular opacities in the right lower lobe and to a lesser extent the left lower lobe similar to recent chest CT consistent with bronchiolitis. LIVER, GALLBLADDER, AND BILIARY TREE: The liver is normal in size, shape, and attenuation. No focal hepatic lesion or biliary ductal dilatation is present. The gallbladder is unremarkable with no evidence of radiopaque gallstones, gallbladder wall thickening, or obvious pericholecystic inflammatory changes. PANCREAS: No discrete pancreatic mass or pancreatic ductal dilatation. SPLEEN: Normal size spleen. ADRENAL GLANDS: The left adrenal gland now appears normal in size. The finding on the prior CT may have related to adrenal hemorrhage. KIDNEYS AND URETERS: Simple cyst in the upper right kidney for which no imaging follow-up is recommended. No nephrolithiasis or hydronephrosis. No CT evidence of pyelonephritis. BLADDER: Mostly obscured by artifact from the hip replacement but no gross abnormality. GASTROINTESTINAL TRACT: Small hiatal hernia. The small and large bowel are normal in caliber. No acute inflammatory changes with mild limitation in the pelvis due to artifact from the hip replacement. No focal bowel wall thickening. No mesenteric mass or edema. ABDOMINAL WALL: No significant hernia. Air in the left lower quadrant subcutaneous tissues is likely related to medication injection. No hematoma or surrounding inflammatory changes. LYMPH NODES: No demonstrable adenopathy. VASCULAR: No aortic aneurysm. Moderate aortoiliac atherosclerotic disease. PELVIC VISCERA: Suspect hysterectomy. No visible pelvic mass. OSSEOUS STRUCTURES: Left total hip replacement. No compression fracture. Bilateral pars defects at L5 with slight anterolisthesis L5 on S1. Mild degenerative disc disease in the lumbar spine. No suspicious osseous lesions. CT/CT abdomen pelvis w IV con IMPRESSION: No acute inflammatory findings in the abdomen/pelvis. Bronchiolitis in the lower lobes, right greater than left.
--- NOTE | 2023-07-19 07:17 | ECG_ITS ---
Test Reason : WEAKNESS Blood Pressure : / mmHG Vent. Rate : 124 BPM Atrial Rate : 124 BPM P-R Int : 118 ms QRS Dur : 068 ms QT Int : 318 ms P-R-T Axes : 088 075 066 degrees QTc Int : 456 ms Sinus tachycardia with Premature supraventricular complexes Nonspecific ST abnormality Abnormal ECG When compared with ECG of 09-JUL-2023 18:09, Premature supraventricular complexes are now Present Referred By: Britt Deal Electronically Signed By:EDY MONROY
--- NOTE | 2023-07-19 07:19 | ED_ITS ---
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 She denies fevers. She has no chest pain. She denies sick contacts. She was just admitted and DC here on 07/11 for neutropenic fever and DC out on levofloxacin and doxy to complete course PER DR[facility] SM[facility] have confirmed she does not need irradiated products - I did speak to him about it this AM again. MD elicited complaint: shortness of breath and cough Pertinent past history: COPD Onset (ago): day(s) (2) Context: recent illness Timing: intermittent Severity: moderate Exacerbating factors: coughing Relieving factors: nothing Known history of: COPD Associated symptoms: cough, wheezing, sputum production and other (weakness, anorexia) Treatment prior to arrival: oxygen (sat 92% on RA) Related Data Home Medications ?Medication ?Instructions ?Recorded ?Confirmed acyclovir 400 mg tablet 400 mg PO BID 01/31/20 07/10/23 levothyroxine 125 mcg tablet 125 mcg PO DAILY@0600 01/31/20 07/10/23 trazodone 100 mg tablet 100 mg PO BEDTIME 01/31/20 07/10/23 lorazepam 0.5 mg tablet 0.5 mg PO DAILY PRN anxiety 03/01/22 07/10/23 cyanocobalamin (vitamin B-12) 1,000 mcg PO DAILY 02/02/23 07/10/23 1,000 mcg tablet potassium chloride 20 mEq 20 meq PO DAILY 02/02/23 07/10/23 tablet,extended release fexofenadine 180 mg tablet 180 mg PO DAILY 07/10/23 07/10/23 (Nahed Allergy) Allergies Allergy/AdvReac Type Severity Reaction Status Date / Time adhesive tape Allergy Unknown RASH Verified 07/19/23 07:24 bacitracin [Bacitracin] Allergy Unknown RASH Verified 07/19/23 07:24 Review of Systems 2 Review of Systems: Constitutional : No Fever, No Chills, pos anorexia ENT/Mouth : No Hoarseness, No sore throat, No Rhinorrhea Eyes: No Redness, No Discharge, No Vision Changes Cardiovascular : No Chest Pain, positive SOB, positive Dyspnea on Exertion, No Edema Respiratory : positive Cough, pos Sputum, positive Wheezing, Gastrointestinal : No Nausea, No Vomiting, No Diarrhea, No abdominal Pain Genitourinary : No Dysuria, No Hematuria Musculoskeletal : No joint pain, No Myalgias Skin : No rash Neuro : No Weakness, No Numbness, No Headache Psych : No anxiety, depression All other systems reviewed and are negative [facility] Past Medical History Attestation statement: The following information was validated with the patient. Source: old records reviewed Medical History Tobacco dependence Dyspnea COPD (chronic obstructive pulmonary disease) Anemia COPD with asthma Anxiety Depression Non-Hodgkin lymphoma in remission Hypothyroidism Surgical History S/P angiogram of extremity (02/13/20) History of salpingo-oophorectomy H/O: hysterectomy Family History Family History Father CAD (coronary artery disease) Social History Social History Household Members: None Housing: Apartment Do you presently have visiting nurse or other home services: No Alcohol intake: never Patient Tobacco Use Status: Current everyday Tobacco user Tobacco use type: Cigarette Cigarette Packs Per Day: 1 Years Smoked: 40 Smoked in Last 30 Days: Yes Second Hand Smoke Exposure: No Use of substances other than those prescribed or required for medical reasons: No Advance Directives: Yes Advance Directives on File: Yes Advance Directives Date on File: 07/16/21 Do you have a plan to hurt others: No Plan service: No Current occupational status: retired Physical Exam 2 Vital Signs: Vital Signs: Last Vital Signs Temp 99.8 F 07/19/23 11:51 Pulse 99 07/19/23 12:00 Resp 21 H 07/19/23 12:00 BP 93/47 L 07/19/23 12:00 Pulse Ox 100 07/19/23 11:51 O2 Del Method Nasal Cannula 07/19/23 11:51 O2 Flow Rate 2.5 07/19/23 11:51 Oxygen Flow Rate 2 07/19/23 07:15 BMI result Body Mass Index 18.0 Appearance: Alert. Oriented X3. No acute distress. frail and thin Eyes: Pupils equal, round and reactive to light. ENT: Pharynx normal. Neck: Normal inspection. Neck supple. CVS: Normal heart rate and rhythm. Pulses normal. Respiratory: No respiratory distress. Breath sounds normal. white sputum noted on cough Abdomen: Soft and nontender. Skin: Skin warm and dry. Normal skin color. Normal skin turgor. Extremities: No lower extremity edema. Neuro: Oriented X 3. No motor deficit. No sensory deficit. Course Course Course Narrative: WBC 0.8, plts 11 Reevaluation(s) Reevaluation #1: at this time given procalcitonin at 10 and her neutropenia there could be possible infection will order cefepime 930am possible infection suspected Reevaluation #2: drop in blood pressure 30cc/kg bolus ordered patient is refusing additional IV only allowing port access at this time IVF ordered Reevaluation #3: patient did allow me to put 20G in R forearm after discussion she also tells me she does not want life support - no central line in neck only use port for pressors, no intubation or ventilator, CPR attempt is okay Additional Reevaluation(s): blood pressure coming up with fluids now that she has allowed peripheral IV 1233pm Medications Administered Generic Name Dose Route Start Last Admin Trade Name Freq PRN Reason Stop Dose Admin Sodium Chloride 1,000 mls @ 999 mls/hr 07/19/23 11:55 07/19/23 12:14 Ns IV 07/19/23 12:55 999 mls/hr .Q1H1M ONE Administration Discontinued Medications Generic Name Dose Route Start Last Admin Trade Name Freq PRN Reason Stop Dose Admin Acetaminophen 650 mg 07/19/23 10:27 07/19/23 10:34 Acetaminophen 325 Mg Tablet PO 07/19/23 10:28 650 mg ONCE ONE Administration Albuterol Sulfate 2.5 mg/ 0 mg 07/19/23 08:56 07/19/23 09:01 Albuterol/Ipratropium 3 ml INHALE 07/19/23 08:57 1 dose ONCE ONE Administration Dexamethasone Sodium Phosphate 6 mg 07/19/23 09:39 07/19/23 10:01 Dexamethasone Sod Phosphate 4 Mg/Ml Vial IVPUSH 07/19/23 09:40 6 mg ONCE ONE Administration Guaifenesin/Codeine Phosphate 5 ml 07/19/23 07:18 07/19/23 07:54 Guaifen/Codeine Sf 200/20/10ml 10 Ml Liquid PO 07/19/23 07:19 5 ml ONCE ONE Administration Sodium Chloride 100 mls @ 100 mls/hr 07/19/23 08:46 07/19/23 10:35 Ns IV 07/19/23 09:45 100 mls/hr ONCE ONE Administration Cefepime HCl 2 gm/ Sodium 50 mls @ 100 mls/hr 07/19/23 09:28 07/19/23 10:38 Chloride IV 07/19/23 09:57 Infused ONCE ONE Infusion Sodium Chloride 500 mls @ 500 mls/hr 07/19/23 10:59 07/19/23 11:21 Ns IV 07/19/23 11:58 500 mls/hr .Q1H ONE Administration Medical Decision Making Medical Decision Making MDM Narrative: 73 yo female with PMH of COPD not on home O2, mood disorder, hypothyroidism, 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 At this time she will need labs, cultures, CXR, viral panel, type and screen. She has no wheezes on exam a this time so nebs are not indicated. Will hold off IV steroids as well. No signs of clinical volume overload either. Differential Diagnosis Differential Diagnoses: The differential diagnosis associated with the presentation includes viral illness, copd, pancytopenia Admission/Observation Consideration of admission/observation: Escalation of care including admission/observation considered admit for further management and workup FTT, hypoxia, fatigue, parainfluenza, elevated procalcitonin Lab Data MDM Lab Attestation statement: I reviewed the patient's lab results. 07/19/23 08:23 07/19/23 08:23 Labs: Lab Results 07/19/23 07/19/23 07/19/23 Range/Units 07:35 08:07 08:21 WBC (4.8-10.8) X10*3/uL RBC (4.20-5.50) X10*6/uL Hgb (12.0-16.0) g/dl Hct (37.0-47.0) % MCV (80.0-98.0) fL MCH (27.0-33.0) pg MCHC (31.0-35.0) g/dl RDW (11.0-16.0) % Plt Count (160-400) X10*3/uL MPV Immature Gran % (Auto) Neut % (Auto) Lymph % (Auto) [place] % (Auto) Eos % (Auto) Baso % (Auto) Lymph # (Auto) [place] # (Auto) Eos # (Auto) Baso # (Auto) Abs Immat Gran (auto) Absolute Neuts (auto) Absolute Nucleated RBC (0.0-0.012) X10*3/uL Nucleated RBC % (auto) (0.0-0.2) /100WBC Neutrophils % (Manual) (45-73) % Band Neutrophils % (3-5) % Lymphocytes % (Manual) (20-40) % Atypical Lymphs % (Man) (0-6) % Monocytes % (Manual) (2-11) % Promyelocytes % % Blast Cells % (Manual) % Abs Neuts (Manual) (2.0-8.3) X10*3/uL Lymphocytes # (Manual) (1.2-4.9) X10*3/uL Monocytes # (Manual) (0.1-1.2) X10*3/uL Promyelocytes # X10*3/uL Blast Cells # X10*3/uL Platelet Estimate (NORMAL) Plt Morphology Comment RBC Morphology Tear Drop Cells /OIF PT (11.1-13.3) SEC INR (0.9-1.1) VBG pH (7.32-7.43) VBG pCO2 mmHg VBG pO2 mmHg VBG HCO3 (22-26) mmol/L VBG O2 Saturation % VBG Base Excess mmol/L Sodium (135-145) mmol/L Potassium (3.3-5.1) mmol/L Chloride (96-108) mmol/L Carbon Dioxide (22-29) mmol/L Anion Gap (12-20) BUN (9-16) mg/dL Creatinine (0.5-1.4) mg/dL Estim Creat Clear Calc Estimated GFR POC Glucose 101 (60-115) mg/dL Random Glucose (60-115) mg/dL Lactic Acid 1.1 (0.5-2.0) mmol/L Calcium (8.4-10.2) mg/dL Magnesium (1.6-2.6) mg/dL Total Bilirubin (0.0-1.0) mg/dL Direct Bilirubin (0.0-0.5) mg/dL AST (5-31) U/L ALT (0-31) U/L Alkaline Phosphatase (39-117) U/L Troponin I High Sens (<3.5-17.0) ng/L B-Natriuretic Peptide (<100) pg/mL Total Protein (6.5-8.0) g/dL Albumin (3.5-5.0) g/dL Lipase (8-78) U/L Procalcitonin ng/mL Respiratory Panel Gar See Note Adenovirus (Rapid PCR) Not Detected (Not Detect.) B.pert (TEM-PCR) Not Detected (Not Detect.) B.parapertussis DNA PCR Not Detected (Not Detect.) C. pneumoniae DNA (PCR) Not Detected (Not Detect.) Coronavirus OC43 (PCR) Not Detected (Not Detect.) Coronavirus HKU1 (PCR) Not Detected (Not Detect.) Coronavirus 229E (PCR) Not Detected (Not Detect.) Coronavirus NL63 (PCR) Not Detected (Not Detect.) Human Metapneumovir PCR Not Detected (Not Detect.) Influenza A (RT-PCR) Not Detected (Not Detect.) Influenza B (RT-PCR) Not Detected (Not Detect.) M. pneumoniae (PCR) Not Detected (Not Detect.) Parainfluenza 1 (PCR) Not Detected (Not Detect.) Parainfluenza 2 (PCR) Not Detected (Not Detect.) Parainfluenza 3 (PCR) Detected A (Not Detect.) Parainfluenza 4 (PCR) Not Detected (Not Detect.) RSV (PCR) Not Detected (Not Detect.) Entero/Rhino (PCR) Not Detected (Not Detect.) SARS-CoV-2 RNA (RT-PCR) Not Detected (Not Detect.) Blood Type Antibody Screen 07/19/23 07/19/23 Range/Units 08:23 08:31 WBC 0.8 L* (4.8-10.8) X10*3/uL RBC 2.66 L (4.20-5.50) X10*6/uL Hgb 7.8 L (12.0-16.0) g/dl Hct 23.2 L (37.0-47.0) % MCV 87.2 (80.0-98.0) fL MCH 29.3 (27.0-33.0) pg MCHC 33.6 (31.0-35.0) g/dl RDW 13.8 (11.0-16.0) % Plt Count 11 L* (160-400) X10*3/uL MPV Not Reportable Immature Gran % (Auto) Cancelled Neut % (Auto) Cancelled Lymph % (Auto) Cancelled [place] % (Auto) Cancelled Eos % (Auto) Cancelled Baso % (Auto) Cancelled Lymph # (Auto) Cancelled [place] # (Auto) Cancelled Eos # (Auto) Cancelled Baso # (Auto) Cancelled Abs Immat Gran (auto) Cancelled Absolute Neuts (auto) Cancelled Absolute Nucleated RBC 0.000 (0.0-0.012) X10*3/uL Nucleated RBC % (auto) 0.0 (0.0-0.2) /100WBC Neutrophils % (Manual) 14 L (45-73) % Band Neutrophils % 0 L (3-5) % Lymphocytes % (Manual) 46 H (20-40) % Atypical Lymphs % (Man) 2 (0-6) % Monocytes % (Manual) 16 H (2-11) % Promyelocytes % 10 % Blast Cells % (Manual) 12 % Abs Neuts (Manual) 0.1 L (2.0-8.3) X10*3/uL Lymphocytes # (Manual) 0.4 L (1.2-4.9) X10*3/uL Monocytes # (Manual) 0.1 (0.1-1.2) X10*3/uL Promyelocytes # 0.1 X10*3/uL Blast Cells # 0.1 X10*3/uL Platelet Estimate DECREASED (NORMAL) Plt Morphology Comment NORMAL RBC Morphology NOTED Tear Drop Cells 1+ (0-2) /OIF PT 19.1 H (11.1-13.3) SEC INR 1.6 H (0.9-1.1) VBG pH 7.45 H (7.32-7.43) VBG pCO2 32 mmHg VBG pO2 68 mmHg VBG HCO3 23 (22-26) mmol/L VBG O2 Saturation 95.0 % VBG Base Excess -0.1 mmol/L Sodium 136 (135-145) mmol/L Potassium 4.3 (3.3-5.1) mmol/L Chloride 103 (96-108) mmol/L Carbon Dioxide 21 L (22-29) mmol/L Anion Gap 16 (12-20) BUN 23 H (9-16) mg/dL Creatinine 1.05 (0.5-1.4) mg/dL Estim Creat Clear Calc 35.9 Estimated GFR 51 POC Glucose (60-115) mg/dL Random Glucose 134 H (60-115) mg/dL Lactic Acid (0.5-2.0) mmol/L Calcium 8.3 L (8.4-10.2) mg/dL Magnesium 1.9 (1.6-2.6) mg/dL Total Bilirubin 0.5 (0.0-1.0) mg/dL Direct Bilirubin 0.3 (0.0-0.5) mg/dL AST 17 (5-31) U/L ALT 21 (0-31) U/L Alkaline Phosphatase 108 (39-117) U/L Troponin I High Sens 8.8 (<3.5-17.0) ng/L B-Natriuretic Peptide 257 H (<100) pg/mL Total Protein 5.4 L (6.5-8.0) g/dL Albumin 3.4 L (3.5-5.0) g/dL Lipase 6 L (8-78) U/L Procalcitonin 10.98 ng/mL Respiratory Panel Gar Adenovirus (Rapid PCR) (Not Detect.) B.pert (TEM-PCR) (Not Detect.) B.parapertussis DNA PCR (Not Detect.) C. pneumoniae DNA (PCR) (Not Detect.) Coronavirus OC43 (PCR) (Not Detect.) Coronavirus HKU1 (PCR) (Not Detect.) Coronavirus 229E (PCR) (Not Detect.) Coronavirus NL63 (PCR) (Not Detect.) Human Metapneumovir PCR (Not Detect.) Influenza A (RT-PCR) (Not Detect.) Influenza B (RT-PCR) (Not Detect.) M. pneumoniae (PCR) (Not Detect.) Parainfluenza 1 (PCR) (Not Detect.) Parainfluenza 2 (PCR) (Not Detect.) Parainfluenza 3 (PCR) (Not Detect.) Parainfluenza 4 (PCR) (Not Detect.) RSV (PCR) (Not Detect.) Entero/Rhino (PCR) (Not Detect.) SARS-CoV-2 RNA (RT-PCR) (Not Detect.) Blood Type O Positive Antibody Screen NEGATIVE Independent Interpretation I performed an independent interpretation of an: EKG, Plain X-Ray (no consolidation) and CT Scan (no ICH) Interpretation: Rate: 124 Rhythm: sinus tach [place]: normal Normal P waves. Normal ZAIRE. Normal QRS complex. ST T wave : no DIEGO, nonspecific ST T wave changes lateral leads qTC: 456 prior studies: no acute ischemia The study has been interpreted contemporaneously by me. . Radiology Impression Discussion of test interpretation with radiology: I have reviewed the radiologist's reading. Independent Historian Clinical information obtained from an independent historian. History obtained from or confirmed by: EMS External Record Review External record reviewed: Inpatient record and Office record Procedures EJ/Peripheral Line Arm R: Time Out Performed: Yes Skin Cleansed in Sterile Fashion: Yes Size (gauge): 20 IV Secured and Dressing Applied: Yes Patient Tolerated Procedure: well and no complications Critical Care Time Critical Care Time Critical Care Time: Yes Total Critical Care Time: 60 Attestation: IVF, review of records, platelet transfusion, goals of care discussion, resuscitation of blood pressure I attest to this time spent taking care of the patient Discharge Plan Discharge Clinical Impression: Acquired neutropenia, Thrombocytopenia, Parainfluenza, Acute viral syndrome, Weakness Patient Disposition: Admitted As Inpatient Print Language: Korean
[2023-07-19 07:39] LABS: Glucose, Whole Blood 101 mg/dL (60-115)
[2023-07-19] MEDS: guaiFEN/Codeine SF 200/20/10ML 10 ML LIQUID 5 ML PO (07:54)
--- NOTE | 2023-07-19 08:02 | PC.NURSE ---
PT A+O x3, VSS, SHE DENIES PAIN. PT LIVES ALONE AND REPORTS HAVING DIFFICULTY BREATHING, A WET NON PRODUCTIVE COUGH FOR A FEW DAYS, AND LOSS OF APPETITE. SHE DRANK ONE BOTTLE OF ENSURE THIS MORNING AND HAS BEEN ABLE TO HOLD IT DOWN. REPORTS PASSING OUT YESTERDAY IN HER BATHROOM, NO HEAD STRIKE, NO LOC. PT REPORTS THAT SHE CALLED THE AMBULANCE BECAUSE HER BREATHING AND COUGH IS GETTING WORSE. PER EMS PT 92% R/A. SHE WAS PUT ON 2L N/C SATTING 98%. PT'S SATTING 90-92 R/A IN THE ER. SHE REMAINS ON 2L SATTING HIGH 90S.
[2023-07-19 08:36] LABS: Hematocrit 23.2 % (37.0-47.0); Hemoglobin 7.8 g/dl (12.0-16.0); Mean Corpuscular HGB Conc 33.6 g/dl (31.0-35.0); Mean Corpuscular Hemoglobin 29.3 pg (27.0-33.0); Mean Corpuscular Volume 87.2 fL (80.0-98.0); Red Blood Count 2.66 X10*6/uL (4.20-5.50); Red Cell Distribution Width 13.8 % (11.0-16.0)
[2023-07-19 08:37] LABS: INTERNATIONAL NORM RATIO 1.6 (0.9-1.1); Prothrombin Time 19.1 SEC (11.1-13.3)
[2023-07-19 08:37] LABS: VBG Base Excess -0.1 mmol/L; VBG HCO3 23 mmol/L (22-26); VBG pCO2 32 mmHg; VBG pH 7.45 (7.32-7.43); VBG pO2 68 mmHg
[2023-07-19 08:37] LABS: Venous Blood Gas Refer to POC result
[2023-07-19 08:43] LABS: Platelet Count 11 X10*3/uL (160-400); White Blood Count 0.8 X10*3/uL (4.8-10.8)
[2023-07-19 08:45] LABS: Lactic Acid 1.1 mmol/L (0.5-2.0)
[2023-07-19 08:55] LABS: B Type Natriuretic Peptide 257 pg/mL (<100)
[2023-07-19 08:57] LABS: Troponin-I High Sensitivity 8.8 ng/L (<3.5-17.0)
[2023-07-19] MEDS: Albuterol Sulfate 2.5 MG, Albuterol/Iprat 2.5/0.5MG 3 ML 3 ML INHALE (09:01)
[2023-07-19 09:06] LABS: Alanine Aminotransferase 21 U/L (0-31); Albumin Level 3.4 g/dL (3.5-5.0); Alkaline Phosphatase 108 U/L (39-117); Anion Gap 16 (12-20); Aspartate Amino Transferase 17 U/L (5-31); Bilirubin Direct 0.3 mg/dL (0.0-0.5); Bilirubin Total 0.5 mg/dL (0.0-1.0); Blood Urea Nitrogen 23 mg/dL (9-16); Calcium 8.3 mg/dL (8.4-10.2); Carbon Dioxide 21 mmol/L (22-29); Chloride 103 mmol/L (96-108); Creatinine Clr Calc Pharmacy 35.9; Estimated Glomerular Filt Rate 51; Glucose Random 134 mg/dL (60-115); Lipase 6 U/L (8-78); Magnesium 1.9 mg/dL (1.6-2.6); Potassium 4.3 mmol/L (3.3-5.1); Sodium 136 mmol/L (135-145); Total Protein 5.4 g/dL (6.5-8.0)
[2023-07-19 09:13] LABS: Adenovirus PCR Not Detected (Not Detect.); Bordetella parapertussis PCR Not Detected (Not Detect.); Bordetella pertussis PCR Not Detected (Not Detect.); Chlamydia pneumoniae PCR Not Detected (Not Detect.); Coronavirus 229E PCR Not Detected (Not Detect.); Coronavirus HKU1 PCR Not Detected (Not Detect.); Coronavirus NL63 PCR Not Detected (Not Detect.); Coronavirus OC43 PCR Not Detected (Not Detect.); Human metapneumovirus PCR Not Detected (Not Detect.); Influenza A PCR Not Detected (Not Detect.); Influenza B PCR Not Detected (Not Detect.); Mycoplasma pneumoniae PCR Not Detected (Not Detect.); Parainfluenza 1 PCR Not Detected (Not Detect.); Parainfluenza 2 PCR Not Detected (Not Detect.); Parainfluenza 3 PCR Detected (Not Detect.); Parainfluenza 4 PCR Not Detected (Not Detect.); RSV PCR Not Detected (Not Detect.); Rhino/Enterovirus PCR Not Detected (Not Detect.)
[2023-07-19 09:18] LABS: Atypical Lymphs Percent Manual 2 % (0-6); Band Neutrophils Percent 0 % (3-5); Blast Percent 12 %; Blastocytes Absolute 0.1 X10*3/uL; Lymphocytes Absolute Manual 0.4 X10*3/uL (1.2-4.9); Lymphocytes Percent Manual 46 % (20-40); Monocytes Absolute Manual 0.1 X10*3/uL (0.1-1.2); Monocytes Percent Manual 16 % (2-11); Neutrophils Absolute Manual 0.1 X10*3/uL (2.0-8.3); Neutrophils Percent Manual 14 % (45-73); Promyelocytes Absolute 0.1 X10*3/uL; Promyelocytes Percent 10 %
[2023-07-19 09:26] LABS: Procalcitonin 10.98 ng/mL
[2023-07-19 09:29] LABS: Platelet Estimate DECREASED (NORMAL); Platelet Morphology Comment NORMAL; RBC Morphology NOTED; Tear Drop Cells 1+ (0-2) /OIF
[2023-07-19 09:36] LABS: SARS-CoV-2 PCR Not Detected (Not Detect.)
[2023-07-19] MEDS: dexAMETHasone sod phosphate 4 MG/ML VIAL 6 MG IVPUSH (10:01)
[2023-07-19] MEDS: cefEPime HCl 2 GM in 0.9 % Sodium Chloride 50 ML IV ×2 (10:01→22:40)
[2023-07-19] MEDS: Acetaminophen 325 MG TABLET 650 MG PO (10:34)
--- NOTE | 2023-07-19 10:39 | PC.NURSE ---
PT'S PORT ACCESS, SHE REFUSED TO HAVING A SECOND IV. ABSOLUTELY NOT . VS DOCUMENTED, ORAL TEMP 100.3, DR. RAMAN MADE AWARE, TYLENOL ORDERED AND GIVEN DOCUMENTED. PLATELETS VERIFIED BY TWO RNs AND STARTED. PT RESTING QUIETLY AT THIS TIME.
[2023-07-19] MEDS: 0.9 % Sodium Chloride 500 ML IV (11:21)
[2023-07-19] MEDS: 0.9 % Sodium Chloride 1,000 ML 999 ML IV (12:14)
--- NOTE | 2023-07-19 12:21 | PC.NURSE ---
20g iv inserted R forearm. pt tolerated well. iv fluids running. current b/p 93/47.
--- NOTE | 2023-07-19 13:37 | PM.IMHP ---
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 She has not actually taken her temperature but does feel sweats and chills. Denies known sick Contacts. Denies nasal congestion, sore throat, abdominal pain, nausea, vomiting, diarrhea, shortness of breath, chest pain. She was recently admitted from 07/08-07/11 for treatment of neutropenic fever, thrombocytopenia, and anemia in the setting of AML. She was treated with cefepime and vancomycin and discharged with Augmentin and doxycycline. She follows with Matthew Lazcano (Dr. Grayson) and last Inqovi was taken 06/21, due next week. On arrivan, elevated temp of 100.3 and tachycardia to 131m tachypneic at 27. Oximetry 92% on RA. She is neutropenic with WBC 0.8, ANC 0.1. Anemic with H/H 7.8/23.2%, consistent with baseline. Platelets 11. Creatinine baseline, electrolyte levels normal. Lactic acid 1.1. Troponin detectable but within normal limits. Procalcitonin 11. Positive for parainfluenza. Chest x-ray unremarkable. Head CT negative for acute intracranial abnormality. In the ED, given IV cefepime, 6 mg dexamethasone, IV NS, DuoNeb, and Tylenol. She also recevied platelets. She will be admitted for neutropenic fever with parainfluenza. Review of Systems Review of Systems: Yes all other systems are reviewed and are negative [facility] Medical History Tobacco dependence Dyspnea COPD (chronic obstructive pulmonary disease) Anemia COPD with asthma Anxiety Depression Non-Hodgkin lymphoma in remission Hypothyroidism Family History Father CAD (coronary artery disease) Surgical History S/P angiogram of extremity (02/13/20) History of salpingo-oophorectomy H/O: hysterectomy Social History Household Members: None Housing: Apartment Do you presently have visiting nurse or other home services: No Alcohol intake: never Patient Tobacco Use Status: Current everyday Tobacco user Tobacco use type: Cigarette Cigarette Packs Per Day: 1 Years Smoked: 40 Smoked in Last 30 Days: Yes Second Hand Smoke Exposure: No Use of substances other than those prescribed or required for medical reasons: No Advance Directives: Yes Advance Directives on File: Yes Advance Directives Date on File: 07/16/21 Do you have a plan to hurt others: No Plan service: No Current occupational status: retired Meds Allergies Allergy/AdvReac Type Severity Reaction Status Date / Time adhesive tape Allergy Unknown RASH Verified 07/19/23 07:24 bacitracin [Bacitracin] Allergy Unknown RASH Verified 07/19/23 07:24 Home Medications ?Medication ?Instructions ?Recorded ?Confirmed ?Last Taken ?Type acyclovir 400 mg tablet 400 mg PO BID 01/31/20 07/10/23 07/09/23 History levothyroxine 125 mcg tablet 125 mcg PO DAILY@0600 01/31/20 07/10/23 07/09/23 History trazodone 100 mg tablet 100 mg PO BEDTIME 01/31/20 07/10/23 07/08/23 History lorazepam 0.5 mg tablet 0.5 mg PO DAILY PRN anxiety 03/01/22 07/10/23 02/02/23 History cyanocobalamin (vitamin B-12) 1,000 mcg PO DAILY 02/02/23 07/10/23 07/09/23 History 1,000 mcg tablet potassium chloride 20 mEq 20 meq PO DAILY 02/02/23 07/10/23 07/09/23 History tablet,extended release fexofenadine 180 mg tablet 180 mg PO DAILY 07/10/23 07/10/23 07/09/23 History (Nahed Allergy) Physical Exam Vital Signs and Narrative: Vital Signs: Last Vital Signs Temp 99.8 F 07/19/23 11:51 Pulse 99 07/19/23 12:00 Resp 21 H 07/19/23 12:00 BP 93/47 L 07/19/23 12:00 Pulse Ox 100 07/19/23 11:51 O2 Del Method Nasal Cannula 07/19/23 11:51 O2 Flow Rate 2.5 07/19/23 11:51 Oxygen Flow Rate 2 07/19/23 07:15 BMI result Body Mass Index 18.0 Constitutional - Awake and Alert, No apparent distress Eyes - PERRLA, EOMI Cardiovascular - S1S2, RRR, No edema Respiratory - Normal lung expansion, Normal respiratory effort, No respiratory distress, bilateral expiratory wheezing Gastrointestinal - NT / ND; +BS; No rebound or guarding - No CVA tenderness Extremities - no calf tenderness bilaterally, no swelling Musculoskeletal - Normal inspection, normal ROM Skin - Warm/Dry Neurological - Alert & oriented x3, CN II-XII in tact, 5/5 strength BUE and BLE Psychological - Appropriate affect Results Labs 07/19/23 08:23 07/19/23 08:23 Labs: Laboratory Results - last 24 hr 07/19/23 07/19/23 07/19/23 07:35 08:07 08:21 MCV MCH MCHC RDW Plt Count MPV Immature Gran % (Auto) Neut % (Auto) Lymph % (Auto) [place] % (Auto) Eos % (Auto) Baso % (Auto) Lymph # (Auto) [place] # (Auto) Eos # (Auto) Baso # (Auto) Abs Immat Gran (auto) Absolute Neuts (auto) Absolute Nucleated RBC Nucleated RBC % (auto) Neutrophils % (Manual) Band Neutrophils % Lymphocytes % (Manual) Atypical Lymphs % (Man) Monocytes % (Manual) Promyelocytes % Blast Cells % (Manual) Abs Neuts (Manual) Lymphocytes # (Manual) Monocytes # (Manual) Promyelocytes # Blast Cells # Platelet Estimate Plt Morphology Comment RBC Morphology Tear Drop Cells PT INR VBG pH VBG pCO2 VBG pO2 VBG HCO3 VBG O2 Saturation VBG Base Excess Anion Gap Estim Creat Clear Calc Estimated GFR POC Glucose 101 Random Glucose Lactic Acid 1.1 Calcium Magnesium Total Bilirubin Direct Bilirubin AST ALT Alkaline Phosphatase Troponin I High Sens B-Natriuretic Peptide Total Protein Albumin Lipase Procalcitonin Respiratory Panel Gar See Note Adenovirus (Rapid PCR) Not Detected B.pert (TEM-PCR) Not Detected B.parapertussis DNA PCR Not Detected C. pneumoniae DNA (PCR) Not Detected Coronavirus OC43 (PCR) Not Detected Coronavirus HKU1 (PCR) Not Detected Coronavirus 229E (PCR) Not Detected Coronavirus NL63 (PCR) Not Detected Human Metapneumovir PCR Not Detected Influenza A (RT-PCR) Not Detected Influenza B (RT-PCR) Not Detected M. pneumoniae (PCR) Not Detected Parainfluenza 1 (PCR) Not Detected Parainfluenza 2 (PCR) Not Detected Parainfluenza 3 (PCR) Detected A Parainfluenza 4 (PCR) Not Detected RSV (PCR) Not Detected Entero/Rhino (PCR) Not Detected SARS-CoV-2 RNA (RT-PCR) Not Detected Blood Type Antibody Screen 07/19/23 07/19/23 08:23 08:31 MCV 87.2 MCH 29.3 MCHC 33.6 RDW 13.8 Plt Count 11 L* MPV Not Reportable Immature Gran % (Auto) Cancelled Neut % (Auto) Cancelled Lymph % (Auto) Cancelled [place] % (Auto) Cancelled Eos % (Auto) Cancelled Baso % (Auto) Cancelled Lymph # (Auto) Cancelled [place] # (Auto) Cancelled Eos # (Auto) Cancelled Baso # (Auto) Cancelled Abs Immat Gran (auto) Cancelled Absolute Neuts (auto) Cancelled Absolute Nucleated RBC 0.000 Nucleated RBC % (auto) 0.0 Neutrophils % (Manual) 14 L Band Neutrophils % 0 L Lymphocytes % (Manual) 46 H Atypical Lymphs % (Man) 2 Monocytes % (Manual) 16 H Promyelocytes % 10 Blast Cells % (Manual) 12 Abs Neuts (Manual) 0.1 L Lymphocytes # (Manual) 0.4 L Monocytes # (Manual) 0.1 Promyelocytes # 0.1 Blast Cells # 0.1 Platelet Estimate DECREASED Plt Morphology Comment NORMAL RBC Morphology NOTED Tear Drop Cells 1+ (0-2) PT 19.1 H INR 1.6 H VBG pH 7.45 H VBG pCO2 32 VBG pO2 68 VBG HCO3 23 VBG O2 Saturation 95.0 VBG Base Excess -0.1 Anion Gap 16 Estim Creat Clear Calc 35.9 Estimated GFR 51 POC Glucose Random Glucose 134 H Lactic Acid Calcium 8.3 L Magnesium 1.9 Total Bilirubin 0.5 Direct Bilirubin 0.3 AST 17 ALT 21 Alkaline Phosphatase 108 Troponin I High Sens 8.8 B-Natriuretic Peptide 257 H Total Protein 5.4 L Albumin 3.4 L Lipase 6 L Procalcitonin 10.98 Respiratory Panel Gar Adenovirus (Rapid PCR) B.pert (TEM-PCR) B.parapertussis DNA PCR C. pneumoniae DNA (PCR) Coronavirus OC43 (PCR) Coronavirus HKU1 (PCR) Coronavirus 229E (PCR) Coronavirus NL63 (PCR) Human Metapneumovir PCR Influenza A (RT-PCR) Influenza B (RT-PCR) M. pneumoniae (PCR) Parainfluenza 1 (PCR) Parainfluenza 2 (PCR) Parainfluenza 3 (PCR) Parainfluenza 4 (PCR) RSV (PCR) Entero/Rhino (PCR) SARS-CoV-2 RNA (RT-PCR) Blood Type O Positive Antibody Screen NEGATIVE Imaging Radiologist's Impressions: Impressions Chest X-Ray 07/19/23 08:03 IMPRESSION: No acute abnormality. Head CT 07/19/23 09:29 IMPRESSION: No fracture or intracranial bleed. Assessment and Plan (1) Weakness: Status: Acute (2) Parainfluenza: Status: Acute (3) Fever and neutropenia: Status: Acute Plan 73-year-old female with history of AML on palliative oral chemotherapy (Inqovi), COPD, hld, admitted for neutropenic fever and parainfluenza with thrombocytopenia and anemia in setting of AML Neutropenic fever/viral sepsis Fevers, WBCs 0.8, absolute neutrophils 100 Parainfluenza, cxr negative. check chest ct Fever, tachycardia, tachypnea, leukopenia; lactic acid WNL at 1.1. No severe sepsis Will cover with cefepime and vancomycin, started 07/19/2023 Neutropenic precautions, neutropenic diet Oncology consult, follows with Dr. Juarez/Dr Grayson [facility]. On Inqovi (last admin 06/21) ID consult Follow blood cultures Thrombocytopenia Platelet levels 11 at time of presentation Likely secondary to chemotherapy for AML transfused 1 unit of platelets Follow CBC Anemia H&H 7.4/21.9 Likely secondary to chemotherapy for AML Will be transfused 2 units of blood Follow CBC COPD Not in acute exacerbation Patient with mild expiratory wheezing Chronic cough at baseline; patient denies difficulty breathing Continue home inhalers Hypothyroidism Continue levothyroxine Mood disorder Continue stabilizers Protein calorie malnutrition In the setting of oral chemotherapy Ensure supplements tid DNI. CPR OK DVT Prophylaxis: Pneumatic boots Pt will require a hospitalization of at least two nights for treatment and further evaluation of neutropenic fever, thrombocytopenia, and anemia in the setting of chemotherapy for acute myeloid leukemia. Due to the severity of patient's pancytopenia and neutropenic fever, patient will require hospitalization for administration of IV antibiotics, transfusion of blood and platelets, and close monitoring of labs with expert consultation Quality Stroke Does the patient have a stroke diagnosis?: No VTE Prior VTE?: No VTE Risk Level:: Medical - moderate - high VTE Device Contraindication: N/A - Device Ordered VTE Drug Contraindication: Treatment Not Indicated
--- NOTE | 2023-07-19 14:21 | PHA.MEDREC ---
Pharmacy Consult ? Medication Reconciliation Pharmacy has completed the medication reconciliation. Patient recently discharged 07/12/23. Utilized discharge packet and claim history.
[2023-07-19] MEDS: Albuterol/Iprat 2.5/0.5MG 3 ML AMPUL.NEB INHALE ×2 (15:11→19:18)
[2023-07-19] MEDS: vancomycin HCL 1,250 MG in 0.9 % Sodium Chloride 250 ML 166.67 MG IV (16:04)
[2023-07-19] MEDS: 0.9 % Sodium Chloride Flush 3 ML SYRINGE IVFLUSH (16:15)
--- NOTE | 2023-07-19 17:29 | PHA.PROG ---
Admission Date/Time: July 19, 2023 13:53 Indication: OTHER Weight in k.7 kg Adjusted body weight in Kg: [place] body weight in Kg: Obesity Dosing Indication % IBW: Serum Creatinine - Last 168 Hours 07/19/23 08:23 Creatinine 1.05 Estimated CrCl and GFR - Last 168 Hours 07/19/23 08:23 Estim Creat Clear Calc 35.9 Estimated GFR 51 Vancomycin Loading Dose: 1250 MG Current Vancomycin Dosing Regimen: 750 MG Q24H Vancomycin Monitoring using AUC goal of 400 - 600 range with trough as surrogate marker: UPI=873, TROUGH=13 Date and Time for next Vancomycin Level to be drawn: 07/21/23@1400 Pharmacist Comments on Vancomycin Plan: Indication is other , from reading provider's note, doesn't seem like she has bone/joint/respiratory infection so starting her slow on 750 mg q24h and monitor. Vancomycin dosing will take advantage of [employer] as a clinical decision support tool that uses Bayesian modeling to calculate individual patient's pharmacokinetic parameters and forecast the patient's drug concentration time course with the target goal AUC 24 range of 400 - 600 mg/L/hr.
--- NOTE | 2023-07-19 18:11 | P.CNHO_ITS ---
Subjective - Subjective Chief complaint: AML. pancytopenia Patient: known to practice within the last 3 years Consult date: 07/19/23 Primary Care Provider: Burt Juarez MD HPI - Consult Narrative Reason for consult: AML Narrative: Merline Srinivasan is a 73 year old female with pancytopenia from recent chemotherapy for AML. She is treated at [facility] by Dr. Wolff and [place] [facility] Review of Systems - Eyes Reports blurry vision - ENT Reports system reviewed and no additional complaints, except as documented - Cardiovascular Reports excessive sweating, Reports fainting, Reports rapid, pounding, or irregular heartbeat - Respiratory Reports cough - Gastrointestinal Reports other - Genitourinary Reports other - Musculoskeletal Reports muscle weakness, Reports numbness - Integumentary/Breasts Skin/Breast: Reports other - Neurologic Reports other [facility] Medical History: Medical History (Last Reviewed 07/19/23 @ 13:50 by MARYANN Hager) Anemia Anxiety COPD (chronic obstructive pulmonary disease) COPD with asthma Depression Dyspnea Hypothyroidism Non-Hodgkin lymphoma in remission Tobacco dependence Family History: Family History (Last Reviewed 07/19/23 @ 13:50 by MARYANN Hager) Father CAD (coronary artery disease) Surgical History: Surgical History (Last Reviewed 07/19/23 @ 13:50 by MARYANN Hager) H/O: hysterectomy History of salpingo-oophorectomy S/P angiogram of extremity Onset Date: 02/13/20 Social History: Social History (Last Reviewed 07/19/23 @ 13:50 by MARYANN Hager) Living Situation History: Household Members: None Housing: Apartment Do you presently have visiting nurse or other home services: No Tobacco History: Patient Tobacco Use Status: Current everyday Tobacco Tobacco use type: Cigarette Cigarette Packs Per Day: 1 Years Smoked: 40 Smoked in Last 30 Days: Yes Second Hand Smoke Exposure: No Substance Use History: Use of substances other than those prescribed or required for medical reasons : No Advance Directives: Advance Directives: Yes Advance Directives on File: Yes Advance Directives Date on File: 07/16/21 Homicidal Assessment: Do you have a plan to hurt others: No Plan Occupation Assessmet: service: No Current occupational status: retired Home Medications and Allergies Current Medications: Current Medications Acetaminophen (Acetaminophen 325 Mg Tablet) 650 mg PO Q6H PRN PRN Reason: Pain, Mild (Pain Scale 1-3) Acyclovir (Acyclovir 200 Mg Capsule) 400 mg PO BID [facility] Albuterol/Ipratropium (Albuterol/Iprat 2.5/0.5mg 3 Ml Ampul.Neb) 3 ml INHALE RQ4H WHILE AWAKE [facility] Last Admin: 07/19/23 15:11 Dose: 3 ml Cyanocobalamin (Cyanocobalamin (Vitamin B-12) 1,000 Mcg Tablet) 1,000 mcg PO DAILY [facility] Cefepime HCl 2 gm/ Sodium (Chloride) 50 mls @ 100 mls/hr IV Q12H [facility] Vancomycin HCl 750 mg/ Sodium (Chloride) 265 mls @ 265 mls/hr IV Q24H [facility] Levothyroxine Sodium (Levothyroxine Sodium 125 Mcg Tablet) 125 mcg PO DAILY@0600 [facility] Loratadine (Loratadine 10 Mg Tablet) 10 mg PO DAILY [facility] Lorazepam (Lorazepam 0.5 Mg Tablet) 0.5 mg PO DAILY PRN PRN Reason: anxiety Magnesium Hydroxide (Milk Of Magnesia 30 Ml Oral.Susp) 30 ml PO DAILY PRN PRN Reason: Constipation Ondansetron HCl (Ondansetron Hcl 4 Mg/2 Ml Vial) 4 mg IVPUSH Q8H PRN PRN Reason: Nausea and Vomiting Pharmacy Consult (Consult Rx Vancomycin Dosing) 1 each MISCELLANE DAILY PRN PRN Reason: Consult order Potassium Chloride (Potassium Chloride Er 20 Meq Tab.Er.Prt) 20 meq PO DAILY [facility] Sodium Chloride (0.9 % Sodium Chloride Flush 3 Ml Syringe) 3 ml IVFLUSH QSHIFT [facility] Last Admin: 07/19/23 16:15 Dose: 3 ml Trazodone HCl (Trazodone Hcl 100 Mg Tablet) 100 mg PO BEDTIME [facility] Home Medications ?Medication ?Instructions ?Recorded ?Confirmed ?Type acyclovir 400 mg tablet 400 mg PO BID 01/31/20 07/19/23 History levothyroxine 125 mcg tablet 125 mcg PO DAILY@0600 01/31/20 07/19/23 History trazodone 100 mg tablet 100 mg PO BEDTIME 01/31/20 07/19/23 History lorazepam 0.5 mg tablet 0.5 mg PO DAILY PRN anxiety 03/01/22 07/19/23 History cyanocobalamin (vitamin B-12) 1,000 mcg PO DAILY 02/02/23 07/19/23 History 1,000 mcg tablet potassium chloride 20 mEq 20 meq PO DAILY 02/02/23 07/19/23 History tablet,extended release fexofenadine 180 mg tablet 180 mg PO DAILY 07/10/23 07/19/23 History (Nahed Allergy) Allergies Allergy/AdvReac Type Severity Reaction Status Date / Time adhesive tape Allergy Unknown RASH Verified 07/19/23 07:24 bacitracin [Bacitracin] Allergy Unknown RASH Verified 07/19/23 07:24 Physical Exam Vital signs: Vital Signs Temp 98.9 F 07/19/23 13:30 Pulse 90 07/19/23 15:11 Resp 25 H 07/19/23 15:11 BP 103/52 L 07/19/23 13:30 Pulse Ox 100 07/19/23 11:51 O2 Del Method Nasal Cannula 07/19/23 11:51 O2 Flow Rate 2.5 07/19/23 11:51 Intake & Output 07/18/23 07/19/23 07/19/23 18:59 06:59 18:59 Intake Total 2252 / 2252 Balance 2252 / 2252 Intake: Intake, Oral Amount 240 / 240 Intake (Blood Product) Amount 362 / 362 Plt Aph Pas Pathreduced(E8342) 362 / 362 Unit [id number] Intake, IV Amount 1650 / 1650 0.9 % Sodium Chloride 1,000 ml 1000 / 1000 @ 999 mls/hr IV .Q1H1M ONE Rx#: [id number] 0.9 % Sodium Chloride 100 ml @ 100 / 100 100 mls/hr IV ONCE ONE Rx#: [id number] 0.9 % Sodium Chloride 500 ml @ 500 / 500 500 mls/hr IV .Q1H ONE Rx#: [id number] cefEPime HCl 2 gm In 0.9 % 50 / 50 Sodium Chloride 50 ml @ 100 mls /hr IV ONCE ONE Rx#:[id number] Other: Lunch % Eaten 50% Weight 47.7 kg Weight 47.7 kg - Constitutional Present: no acute distress - Routine HEENT Exam Head: Present: atraumatic, normal inspection, normocephalic Eye: Present: conjunctivae pale, PERRL - Routine Neck Exam Present: supple - Routine Respiratory Exam Present: decreased breath sounds - Routine Cardiovascular Exam Cardiovascular: Present: RRR - Routine Abdominal Exam Present: diminished bowel sounds - Routine Extremities Exam Present: pallor Hem/Onc Consult Result - Labs CBC & Chem 7: 07/19/23 08:23 07/19/23 08:23 Labs: Short CBC 07/19/23 Range/Units 08:23 WBC 0.8 L* (4.8-10.8) X10*3/uL Hgb 7.8 L (12.0-16.0) g/dl Hct 23.2 L (37.0-47.0) % Plt Count 11 L* (160-400) X10*3/uL BMP 07/19/23 08:23 Sodium 136 Potassium 4.3 Chloride 103 Carbon Dioxide 21 L BUN 23 H Creatinine 1.05 Calcium 8.3 L Liver Function 07/19/23 Range/Units 08:23 Total Bilirubin 0.5 (0.0-1.0) mg/dL Direct Bilirubin 0.3 (0.0-0.5) mg/dL AST 17 (5-31) U/L ALT 21 (0-31) U/L Alkaline Phosphatase 108 (39-117) U/L Albumin 3.4 L (3.5-5.0) g/dL Assessment and Plan Patient Active problem list reviewed?: Yes (1) Acute myeloid leukemia Status: Acute Assessment and plan: IHer temp was 99. She is pancytopenic from decitibine chemotherapy. She should be isolated with neutropenic prrcautions. She should receive granix daily until the wbc is above 1000. She has een transfused with platelets and should be given two units of red cells. ID should be consulted. I will follow. Recommend cefepime and vanco. - Time Spent With Patient Time Spent with Patient (in minutes): 30
--- NOTE | 2023-07-19 19:47 | PC.NURSE ---
Pt aox4 resting at the bedside. Breaths are even regular and labored. O2 sat 95% on 4L NC. Sinus tach on monitor with HR 110. One unit of RBC's started. Pt denies chest pain and sob. No s/s complications/reactions. Pt is tolerating well. Monitoring is ongoing. Pending bed assignment. Pt is aware of plan of care.
[2023-07-19] MEDS: Acyclovir 200 MG CAPSULE 400 MG PO (19:59)
[2023-07-19] MEDS: traZODone HCL 100 MG TABLET PO (19:59)
[2023-07-19] MEDS: Tbo-Filgrastim 300 MCG/0.5 ML SYRINGE SUBCUT (20:08)
--- NOTE | 2023-07-19 22:21 | MHC.CM.PN ---
IMM 07/18. Original given to patient, copy to medical records. CM met with admitted patient with bed assignment pending. A&Ox4. Lives alone. Uses cane when out of apartment. Still Drives. Has no services. THRIVE assessment completed. No needs noted. HCP verified and on file. HCP #1 Crystal Grewal (friend) [phone]. PCP verified. D/C plan: Home without services (patient request). Patient will arrange transport home. CM will follow for any discharge needs.
[2023-07-20] VITALS (12 sets, daily range): BP systolic 95–142; BP diastolic 44–76; PULSE 88–156; RESP 16–22; TEMP 36.4–39.5; O2SAT 94–99
[2023-07-20 05:27] LABS: Mean Corpuscular Hemoglobin 29.3 pg (27.0-33.0); PLT CLUMP 1; Red Cell Distribution Width 14.3 % (11.0-16.0); SCAN SMEAR FLAG 1
[2023-07-20 05:29] LABS: Hematocrit 22.2 % (37.0-47.0); Hemoglobin 7.7 g/dl (12.0-16.0); Imm Gran Abs Auto 0.03 X10*3/uL (0.00-0.03); Imm Gran Pct Auto 4.2 % (0.0-0.4); Lymphocytes Absolute Auto 0.2 X10*3/uL (1.2-4.9); Lymphocytes Percent Auto 32.4 % (20-40); MANUAL DIFF FLAG SCAN; Mean Corpuscular HGB Conc 34.7 g/dl (31.0-35.0); Mean Corpuscular Volume 84.4 fL (80.0-98.0); Mean Platelet Volume 11.1 fL (9.4-12.3); Monocytes Absolute Auto 0.1 X10*3/uL (0.1-1.2); Monocytes Percent Auto 16.9 % (2-11); Neutrophils Absolute Auto 0.3 x10*3/uL (2.0-8.3); Neutrophils Percent Auto 46.5 % (45-73); Red Blood Count 2.63 X10*6/uL (4.20-5.50)
[2023-07-20] MEDS: Levothyroxine Sodium 125 MCG TABLET PO (05:31)
[2023-07-20 05:35] LABS: White Blood Count 0.7 X10*3/uL (4.8-10.8)
[2023-07-20 05:36] LABS: Platelet Count 27 X10*3/uL (160-400)
[2023-07-20 05:43] LABS: Anion Gap 14 (12-20); Blood Urea Nitrogen 21 mg/dL (9-16); Calcium 8.3 mg/dL (8.4-10.2); Carbon Dioxide 20 mmol/L (22-29); Chloride 107 mmol/L (96-108); Creatinine Clr Calc Pharmacy 40.1; Estimated Glomerular Filt Rate 58; Glucose Random 254 mg/dL (60-115); Potassium 4.2 mmol/L (3.3-5.1); Sodium 137 mmol/L (135-145)
[2023-07-20 06:00] LABS: SLIDE REVIEW VERIFIED
[2023-07-20] MEDS: 0.9 % Sodium Chloride Flush 3 ML SYRINGE IVFLUSH ×3 (07:13→19:54)
[2023-07-20] MEDS: Albuterol/Iprat 2.5/0.5MG 3 ML AMPUL.NEB INHALE ×2 (07:58→11:54)
--- NOTE | 2023-07-20 07:58 | PC.NURSE ---
This RN assumed care. Pt alert and oriented, breathing even and unlabored, intermittent cough noted. Pt denies pain or complaints. Requests juice.
[2023-07-20] MEDS: Potassium Chloride ER 20 MEQ TAB.ER.PRT PO (09:37)
[2023-07-20] MEDS: Loratadine 10 MG TABLET PO (09:37)
[2023-07-20] MEDS: Acyclovir 200 MG CAPSULE 400 MG PO ×2 (09:38→19:54)
[2023-07-20] MEDS: Tbo-Filgrastim 300 MCG/0.5 ML SYRINGE SUBCUT (09:39)
--- NOTE | 2023-07-20 09:42 | PC.NURSE ---
RN remained at bedside for RBC initial 15 min infusion. Pt tolerating blood transfusion well, denies any new symptoms. Vitals remaining stable.
[2023-07-20] MEDS: Cyanocobalamin (Vitamin B-12) 1,000 MCG TABLET 1000 MCG PO (09:50)
[2023-07-20] MEDS: cefEPime HCl 2 GM in 0.9 % Sodium Chloride 50 ML IV ×2 (10:41→21:10)
--- NOTE | 2023-07-20 10:58 | PC.NURSE ---
Pt continues to tolerate blood infusion well. No new complaints. VSS
--- NOTE | 2023-07-20 13:21 | HO.PM.IMPN ---
Subjective Subjective Date of Service: 07/20/23 Interval History: no fever overnight feels better dry cough but not short of breath Review of Systems Review of Systems: Yes all other systems are reviewed and are negative Physical Exam Vital Signs: Vital Signs: Last Vital Signs Temp 98.9 F 07/20/23 12:43 Pulse 122 H 07/20/23 12:43 Resp 18 07/20/23 12:43 BP 112/56 L 07/20/23 12:43 Pulse Ox 99 07/20/23 09:10 O2 Del Method Nasal Cannula 07/20/23 09:10 O2 Flow Rate 4 07/20/23 09:10 Oxygen Flow Rate 4 07/19/23 19:40 BMI result Body Mass Index 18.0 Gen: in no acute distress HEENT: sclera anicteric, moist mucus membranes, pale Neck: supple Lungs: diminished bilaterally Heart: regular, tachycardic, no murmurs Abd: soft, non-tender, non-distended Ext: no edema Skin: warm/well-perfused, port in place without signs of infection Neuro: alert and oriented x3, no focal findings Psych: appropriate affect Objective Data Active Medications Acetaminophen (Acetaminophen 325 Mg Tablet) 650 mg PO Q6H PRN PRN Reason: Pain, Mild (Pain Scale 1-3) Acyclovir (Acyclovir 200 Mg Capsule) 400 mg PO BID [facility] Last Admin: 07/20/23 09:38 Dose: 400 mg Documented By: WINSOME Albuterol Sulfate (Albuterol Sulfate (0.083%) 2.5 Mg/3 Ml Vial.Neb) 2.5 mg INHALE Q2H PRN PRN Reason: Shortness of Breath/Wheezing Albuterol/Ipratropium (Albuterol/Iprat 2.5/0.5mg 3 Ml Ampul.Neb) 3 ml INHALE RQ4H WHILE AWAKE [facility] Last Admin: 07/20/23 11:54 Dose: 3 ml Documented By: CHRISTOPHER Cyanocobalamin (Cyanocobalamin (Vitamin B-12) 1,000 Mcg Tablet) 1,000 mcg PO DAILY [facility] Last Admin: 07/20/23 09:50 Dose: 1,000 mcg Documented By: WINSOME Cefepime HCl 2 gm/ Sodium (Chloride) 50 mls @ 100 mls/hr IV Q12H [facility] Last Infusion: 07/20/23 11:24 Dose: Infused Documented By: WINSOME Vancomycin HCl 750 mg/ Sodium (Chloride) 265 mls @ 265 mls/hr IV Q24H [facility] Levothyroxine Sodium (Levothyroxine Sodium 125 Mcg Tablet) 125 mcg PO DAILY@0600 [facility] Last Admin: 07/20/23 05:31 Dose: 125 mcg Documented By: CONSTANTINO Loratadine (Loratadine 10 Mg Tablet) 10 mg PO DAILY [facility] Last Admin: 07/20/23 09:37 Dose: 10 mg Documented By: WINSOME Lorazepam (Lorazepam 0.5 Mg Tablet) 0.5 mg PO DAILY PRN PRN Reason: anxiety Magnesium Hydroxide (Milk Of Magnesia 30 Ml Oral.Susp) 30 ml PO DAILY PRN PRN Reason: Constipation Ondansetron HCl (Ondansetron Hcl 4 Mg/2 Ml Vial) 4 mg IVPUSH Q8H PRN PRN Reason: Nausea and Vomiting Pharmacy Consult (Consult Rx Vancomycin Dosing) 1 each MISCELLANE DAILY PRN PRN Reason: Consult order Potassium Chloride (Potassium Chloride Er 20 Meq Tab.Er.Prt) 20 meq PO DAILY [facility] Last Admin: 07/20/23 09:37 Dose: 20 meq Documented By: WINSOME Sodium Chloride (0.9 % Sodium Chloride Flush 3 Ml Syringe) 3 ml IVFLUSH QSHIFT [facility] Last Admin: 07/20/23 07:13 Dose: 3 ml Documented By: WINSOME Tbo-Filgrastim (Tbo-Filgrastim 300 Mcg/0.5 Ml Syringe) 300 mcg SUBCUT DAILY [facility] Stop: 07/21/23 09:01 Last Admin: 07/20/23 09:39 Dose: 300 mcg Documented By: WINSOME Trazodone HCl (Trazodone Hcl 100 Mg Tablet) 100 mg PO BEDTIME [facility] Last Admin: 07/19/23 19:59 Dose: 100 mg Documented By: CONSTANTINO Labs 07/20/23 04:48 07/20/23 04:48 Labs: Laboratory Results - last 24 hr 07/19/23 07/20/23 08:23 04:48 MCV 84.4 MCH 29.3 MCHC 34.7 RDW 14.3 Plt Count 27 L D MPV 11.1 Immature Gran % (Auto) 4.2 H Neut % (Auto) 46.5 Lymph % (Auto) 32.4 Eaton % (Auto) 16.9 H Eos % (Auto) 0.0 Baso % (Auto) 0.0 Lymph # (Auto) 0.2 L [place]aton # (Auto) 0.1 Eos # (Auto) 0.0 Baso # (Auto) 0.0 Abs Immat Gran (auto) 0.03 Absolute Neuts (auto) 0.3 L Absolute Nucleated RBC 0.000 Nucleated RBC % (auto) 0.0 WBC Morphology Comment Not Reportable Smear Tech's Comments VERIFIED Anion Gap 14 Estim Creat Clear Calc 40.1 Estimated GFR 58 Random Glucose 254 H Calcium 8.3 L Blood Type O Positive Antibody Screen NEGATIVE Crossmatch See Detail Impressions Chest CT 07/19/23 14:52 IMPRESSION: 1. Interstitial patchy ground-glass opacities right lower lobe, suggesting probably atypical infection, interstitial infiltrate pneumonia. No dense lobar consolidation. 2. Mild delgado lobar pulmonary emphysema. 3. No lung mass or suspicious spiculated nodules, there are few scattered tiny nonspecific lung nodular densities measuring up to 4 mm or less. Fleischner criteria does not apply for oncology patients. Further management and/or follow-up should be determined per oncology. 4. Coronary calcification. 5. Calcified mediastinal and hilar lymph nodes might be an old granulomatous disease. 6. Port-A-Cath embedded in the right chest wall with its tip in the SVC. Microbiology Microbiology Results: Microbiology 07/19/23 08:40 Blood Culture - Preliminary Blood - Venous No growth after 24 hours. 07/19/23 08:07 Blood Culture - Preliminary Blood - Venous No growth after 24 hours. 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, currently on oral chemotherapy [Inqovi] recent admission 07/08-07/12/23 for neutropenic fever presenting with cough, anorexia, chills, lethargy found to have neutropenia, T 100.3, parainfluenza infection febrile neutropenia atypical pneumonia parainfluenza infection - follow BCx, trend PCT, continue vancomycin + cefepime 07/18-, ID consult pending - Heme-Onc [Dr Juarez] following, ANC 112->326, continue Granix 300 mcg daily until ANC 1000+ - continue acyclovir prophylaxis - neutropenic + droplet precations thrombocytopenia - transfused 1u platelets, level 11->27, continue daily CBCd hypoproliferative anemia - transfused 1u pRBCs and give another unit today, continue daily CBCd COPD - continue nebulizer treatments hypothyroidism - continue LT4 mood disorder - trazodone, lorazepam malnutrition - supplements VTE ppx - SCDs dispo - eventual home In my clinical judgment, the patient requires continued inpatient hospitalization for the following reasons: IV ABX, neutropenia Total time managing care of this patient today: 45 minutes. Quality Stroke Does the patient have a stroke diagnosis?: No VTE Prior VTE?: No VTE Risk Level:: Medical - moderate - high VTE Device Contraindication: N/A - Device Ordered VTE Drug Contraindication: Treatment Not Indicated
--- NOTE | 2023-07-20 13:31 | PM.EVENT ---
Event Note Date of Service: 07/20/23 Time Spent With Patient Time: Total time managing care of this patient today ____ minutes.
[2023-07-20] MEDS: iohexoL 350 MG/ML 100 ML INFUS..BTL 85 ML IV (14:26)
[2023-07-20] MEDS: Acetaminophen 325 MG TABLET 650 MG PO (15:37)
--- NOTE | 2023-07-20 16:00 | PC.NURSE ---
Pt arrived to room 347 @ 1445. A&Ox3. TRIBE. Shaking chills. Temp 99.2. HR 150's, RR 36. o2 sat 96% on 3L. Persistant cough with scattered wheezes. Dr. Joshua notified. In to assess patient. Found pt bleeding from left ear. No headache or other neurologic symptoms noted. Pressure applied to stop bleeding, flushed with saline by Dr Joshua and packed with surgicell. Temp rechecked, 103.1. Administered tylenol. Placed on telemonitor. Sinus Tach 150's. Orders placed for transfer to [facility]. IV Vanco and solumedrol given per order. Report given to Xuan SRIVASTAVA.
[2023-07-20] MEDS: vancomycin HCL 750 MG in 0.9 % Sodium Chloride 250 ML 265 MG IV (16:01)
[2023-07-20] MEDS: methylPREDNISolone Sod Succ 125 MG/2 ML VIAL IVPUSH (16:31)
--- NOTE | 2023-07-20 16:57 | P.CNID_ITS ---
History of Present Illness Data of Consult Service Date: 07/20/23 Requesting physician: Yissel Joshua Primary Care Provider: Burt Juarez MD HPI Reason for consult: fever of unknown origin She has cough and fever for a day. She is neutropenic and was here with this two weeks ago. SHe has no organism isolated. She has Port looks clear. She has large B cell lymphoma and CART rx and secondary AML. Review of Systems 2 Review of Systems: Yes all other systems are reviewed and are negative Respiratory: Respiratory: Reports cough PMFSH Past Medical History Medical History Tobacco dependence Dyspnea COPD (chronic obstructive pulmonary disease) Anemia COPD with asthma Anxiety Depression Non-Hodgkin lymphoma in remission Hypothyroidism Family History Family History Father CAD (coronary artery disease) Surgical History Surgical History S/P angiogram of extremity (02/13/20) History of salpingo-oophorectomy H/O: hysterectomy Social History Social History Household Members: None Housing: House Do you presently have visiting nurse or other home services: No Alcohol intake: never Patient Tobacco Use Status: Current everyday Tobacco user Tobacco use type: Cigar Cigarette Packs Per Day: 1 Years Smoked: 40 Second Hand Smoke Exposure: No Advance Directives Date on File: 07/16/21 service: No Current occupational status: retired Meds Allergies Allergy/AdvReac Type Severity Reaction Status Date / Time adhesive tape Allergy Unknown RASH Verified 07/19/23 07:24 bacitracin [Bacitracin] Allergy Unknown RASH Verified 07/19/23 07:24 Active Medications: Current Medications Acetaminophen (Acetaminophen 325 Mg Tablet) 650 mg PO Q6H PRN PRN Reason: Pain, Mild (Pain Scale 1-3) Last Admin: 07/20/23 15:37 Dose: 650 mg Acyclovir (Acyclovir 200 Mg Capsule) 400 mg PO BID [facility] Last Admin: 07/20/23 09:38 Dose: 400 mg Albuterol Sulfate (Albuterol Sulfate (0.083%) 2.5 Mg/3 Ml Vial.Neb) 2.5 mg INHALE Q2H PRN PRN Reason: Shortness of Breath/Wheezing Albuterol/Ipratropium (Albuterol/Iprat 2.5/0.5mg 3 Ml Ampul.Neb) 3 ml INHALE RQ4H WHILE AWAKE [facility] Last Admin: 07/20/23 15:06 Dose: Not Given Cyanocobalamin (Cyanocobalamin (Vitamin B-12) 1,000 Mcg Tablet) 1,000 mcg PO DAILY [facility] Last Admin: 07/20/23 09:50 Dose: 1,000 mcg Cefepime HCl 2 gm/ Sodium (Chloride) 50 mls @ 100 mls/hr IV Q12H [facility] Last Infusion: 07/20/23 11:24 Dose: Infused Vancomycin HCl 750 mg/ Sodium (Chloride) 265 mls @ 265 mls/hr IV Q24H [facility] Last Admin: 07/20/23 16:01 Dose: 265 mls/hr Levothyroxine Sodium (Levothyroxine Sodium 125 Mcg Tablet) 125 mcg PO DAILY@0600 [facility] Last Admin: 07/20/23 05:31 Dose: 125 mcg Loratadine (Loratadine 10 Mg Tablet) 10 mg PO DAILY [facility] Last Admin: 07/20/23 09:37 Dose: 10 mg Lorazepam (Lorazepam 0.5 Mg Tablet) 0.5 mg PO DAILY PRN PRN Reason: anxiety Magnesium Hydroxide (Milk Of Magnesia 30 Ml Oral.Susp) 30 ml PO DAILY PRN PRN Reason: Constipation Methylprednisolone Sodium Succinate (Methylprednisolone Sod Succ 40 Mg/Ml Vial) 40 mg IVPUSH Q12H [facility] Ondansetron HCl (Ondansetron Hcl 4 Mg/2 Ml Vial) 4 mg IVPUSH Q8H PRN PRN Reason: Nausea and Vomiting Pharmacy Consult (Consult Rx Vancomycin Dosing) 1 each MISCELLANE DAILY PRN PRN Reason: Consult order Potassium Chloride (Potassium Chloride Er 20 Meq Tab.Er.Prt) 20 meq PO DAILY [facility] Last Admin: 07/20/23 09:37 Dose: 20 meq Sodium Chloride (0.9 % Sodium Chloride Flush 3 Ml Syringe) 3 ml IVFLUSH QSHIFT [facility] Last Admin: 07/20/23 16:03 Dose: 3 ml Tbo-Filgrastim (Tbo-Filgrastim 300 Mcg/0.5 Ml Syringe) 300 mcg SUBCUT DAILY [facility] Stop: 07/21/23 09:01 Last Admin: 07/20/23 09:39 Dose: 300 mcg Trazodone HCl (Trazodone Hcl 100 Mg Tablet) 100 mg PO BEDTIME [facility] Last Admin: 07/19/23 19:59 Dose: 100 mg Home Medications ?Medication ?Instructions ?Recorded ?Confirmed ?Last Taken ?Type acyclovir 400 mg tablet 400 mg PO BID 01/31/20 07/19/23 07/09/23 History levothyroxine 125 mcg tablet 125 mcg PO DAILY@0600 01/31/20 07/19/23 07/09/23 History trazodone 100 mg tablet 100 mg PO BEDTIME 01/31/20 07/19/23 07/08/23 History lorazepam 0.5 mg tablet 0.5 mg PO DAILY PRN anxiety 03/01/22 07/19/23 02/02/23 History cyanocobalamin (vitamin B-12) 1,000 mcg PO DAILY 02/02/23 07/19/23 07/09/23 History 1,000 mcg tablet potassium chloride 20 mEq 20 meq PO DAILY 02/02/23 07/19/23 07/09/23 History tablet,extended release fexofenadine 180 mg tablet 180 mg PO DAILY 07/10/23 07/19/23 07/09/23 History (Nahed Allergy) Physical Exam 2 Vital Signs: Vital Signs: Last Vital Signs Temp 103.1 F H 07/20/23 16:00 Pulse 156 H 07/20/23 16:00 Resp 16 07/20/23 16:00 BP 142/60 H 07/20/23 16:00 Pulse Ox 3 L 07/20/23 16:00 O2 Del Method Nasal Cannula 07/20/23 16:00 O2 Flow Rate 4 07/20/23 09:10 Oxygen Flow Rate 4 07/19/23 19:40 BMI result Body Mass Index 18.0 Const: General: cooperative HEENT: Head: Yes normal to inspection Face and sinus: Yes normal facial exam Mouth: Normal oral and palatal mucosa present Teeth and gingiva: d entition normal Eyes: General: appearance normal, both eyes and all related structures P upils: Equal, round and reactive pupils present Resp: Other: rhonchi bases Cardio: Rate: regular rate Rhythm: regular rhythm GI: Palpation (GI): Soft to palpation and nontender : General: Yes no CVA tenderness Back/Spine/Pelvis: Back: no CVA tenderness Skin: General skin exam: no rashes or lesions noted Neuro: General: moves all extremities Cranial nerves: Yes Equal, round and reactive pupils present Extrem: General: Yes normal to inspection Psych: Appearance: grossly normal Results Labs 07/20/23 04:48 07/20/23 04:48 Labs: Short CBC 07/20/23 Range/Units 04:48 WBC 0.7 L* (4.8-10.8) X10*3/uL Hgb 7.7 L (12.0-16.0) g/dl Hct 22.2 L (37.0-47.0) % Plt Count 27 L D (160-400) X10*3/uL BMP 07/20/23 04:48 Sodium 137 Potassium 4.2 Chloride 107 Carbon Dioxide 20 L BUN 21 H Creatinine 0.94 Calcium 8.3 L Microbiology Microbiology Results: Microbiology 07/19/23 08:40 Blood - Venous Blood Culture - Preliminary No growth after 24 hours. 07/19/23 08:07 Blood - Venous Blood Culture - Preliminary No growth after 24 hours. Assessment and Plan (1) Weakness: Status: Acute (2) Parainfluenza: Status: Acute (3) Acquired neutropenia: Status: Acute Plan She has probable viral illness causing symptoms Continue Cefepime and Vancomycin pending blood cultures. Would check nares MRSA. Legionella No antifungal at this time.
[2023-07-20] MEDS: NeoMYCIN/Polymyxin/HC Otic Sol BOTTLE 4 DROP EAR-LEFT (17:09)
[2023-07-20] MEDS: Tranexamic Acid 1,000 MG/10 ML VIAL 500 MG INTRANASAL (17:10)
--- NOTE | 2023-07-20 17:32 | P.PNHO-ONC_ITS ---
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 She is treated at [facility] by Dr. Wolff and at [facility]. She remains pancytopenic today and has received red cells and platelets. She is receiving Granix injections. She has has some bleeding from the left ear canal. She spiked a temperature of 103 earlier today and is now 101.7. She is seen by ID who is involved. Dr. Joshua is call ing Dr. Alfaro about the issue of antifungal coverage. She is awake and alert. Review of Systems - ENT Reports system reviewed and no additional complaints, except as documented - Cardiovascular Reports lightheadedness, Reports shortness of breath - Respiratory Reports chest congestion - Gastrointestinal Reports feeling full early, Reports nausea - Genitourinary Reports other - Musculoskeletal Reports decreased muscle mass - Neurologic Reports syncope, Reports numbness, Reports other PMFSH Medical History: Medical History (Last Reviewed 07/19/23 @ 13:50 by MARYANN Hager) Anemia Anxiety COPD (chronic obstructive pulmonary disease) COPD with asthma Depression Dyspnea Hypothyroidism Non-Hodgkin lymphoma in remission Tobacco dependence Family History: Family History (Last Reviewed 07/19/23 @ 13:50 by MARYANN Hager) Father CAD (coronary artery disease) Surgical History: Surgical History (Last Reviewed 07/19/23 @ 13:50 by MARYANN aHger) H/O: hysterectomy History of salpingo-oophorectomy S/P angiogram of extremity Onset Date: 02/13/20 Social History: Social History (Last Reviewed 07/19/23 @ 13:50 by MARYANN Hager) Living Situation History: Household Members: None Housing: House Do you presently have visiting nurse or other home services: No Tobacco History: Patient Tobacco Use Status: Current everyday Tobacco Tobacco use type: Cigar Cigarette Packs Per Day: 1 Years Smoked: 40 Second Hand Smoke Exposure: No Advance Directives: Advance Directives Date on File: 07/16/21 Occupation Assessmet: service: No Current occupational status: retired Home Medications and Allergies Current Medications: Current Medications Acetaminophen (Acetaminophen 325 Mg Tablet) 650 mg PO Q6H PRN PRN Reason: Pain, Mild (Pain Scale 1-3) Last Admin: 07/20/23 15:37 Dose: 650 mg Acyclovir (Acyclovir 200 Mg Capsule) 400 mg PO BID [facility] Last Admin: 07/20/23 09:38 Dose: 400 mg Albuterol Sulfate (Albuterol Sulfate (0.083%) 2.5 Mg/3 Ml Vial.Neb) 2.5 mg INHALE Q2H PRN PRN Reason: Shortness of Breath/Wheezing Albuterol/Ipratropium (Albuterol/Iprat 2.5/0.5mg 3 Ml Ampul.Neb) 3 ml INHALE RQ4H WHILE AWAKE [facility] Last Admin: 07/20/23 15:06 Dose: Not Given Cyanocobalamin (Cyanocobalamin (Vitamin B-12) 1,000 Mcg Tablet) 1,000 mcg PO DAILY [facility] Last Admin: 07/20/23 09:50 Dose: 1,000 mcg Cefepime HCl 2 gm/ Sodium (Chloride) 50 mls @ 100 mls/hr IV Q12H [facility] Last Infusion: 07/20/23 11:24 Dose: Infused Vancomycin HCl 750 mg/ Sodium (Chloride) 265 mls @ 265 mls/hr IV Q24H [facility] Last Infusion: 07/20/23 17:10 Dose: Infused Levothyroxine Sodium (Levothyroxine Sodium 125 Mcg Tablet) 125 mcg PO DAILY@0600 [facility] Last Admin: 07/20/23 05:31 Dose: 125 mcg Loratadine (Loratadine 10 Mg Tablet) 10 mg PO DAILY [facility] Last Admin: 07/20/23 09:37 Dose: 10 mg Lorazepam (Lorazepam 0.5 Mg Tablet) 0.5 mg PO DAILY PRN PRN Reason: anxiety Magnesium Hydroxide (Milk Of Magnesia 30 Ml Oral.Susp) 30 ml PO DAILY PRN PRN Reason: Constipation Methylprednisolone Sodium Succinate (Methylprednisolone Sod Succ 40 Mg/Ml Vial) 40 mg IVPUSH Q12H [facility] Ondansetron HCl (Ondansetron Hcl 4 Mg/2 Ml Vial) 4 mg IVPUSH Q8H PRN PRN Reason: Nausea and Vomiting Pharmacy Consult (Consult Rx Vancomycin Dosing) 1 each MISCELLANE DAILY PRN PRN Reason: Consult order Potassium Chloride (Potassium Chloride Er 20 Meq Tab.Er.Prt) 20 meq PO DAILY [facility] Last Admin: 07/20/23 09:37 Dose: 20 meq Sodium Chloride (0.9 % Sodium Chloride Flush 3 Ml Syringe) 3 ml IVFLUSH QSHIFT [facility] Last Admin: 07/20/23 16:03 Dose: 3 ml Tbo-Filgrastim (Tbo-Filgrastim 300 Mcg/0.5 Ml Syringe) 300 mcg SUBCUT DAILY [facility] Stop: 07/21/23 09:01 Last Admin: 07/20/23 09:39 Dose: 300 mcg Trazodone HCl (Trazodone Hcl 100 Mg Tablet) 100 mg PO BEDTIME [facility] Last Admin: 07/19/23 19:59 Dose: 100 mg Home Medications ?Medication ?Instructions ?Recorded ?Confirmed ?Type acyclovir 400 mg tablet 400 mg PO BID 01/31/20 07/19/23 History levothyroxine 125 mcg tablet 125 mcg PO DAILY@0600 01/31/20 07/19/23 History trazodone 100 mg tablet 100 mg PO BEDTIME 01/31/20 07/19/23 History lorazepam 0.5 mg tablet 0.5 mg PO DAILY PRN anxiety 03/01/22 07/19/23 History cyanocobalamin (vitamin B-12) 1,000 mcg PO DAILY 02/02/23 07/19/23 History 1,000 mcg tablet potassium chloride 20 mEq 20 meq PO DAILY 02/02/23 07/19/23 History tablet,extended release fexofenadine 180 mg tablet 180 mg PO DAILY 07/10/23 07/19/23 History (Nahed Allergy) Allergies Allergy/AdvReac Type Severity Reaction Status Date / Time adhesive tape Allergy Unknown RASH Verified 07/19/23 07:24 bacitracin [Bacitracin] Allergy Unknown RASH Verified 07/19/23 07:24 Exam Vital signs: Vital Signs Temp 101.8 F H 07/20/23 17:29 Pulse 156 H 07/20/23 16:00 Resp 16 07/20/23 16:00 BP 142/60 H 07/20/23 16:00 Pulse Ox 3 L 07/20/23 16:00 O2 Del Method Nasal Cannula 07/20/23 16:00 O2 Flow Rate 4 07/20/23 09:10 Intake & Output 07/19/23 07/20/23 07/20/23 18:59 06:59 18:59 Intake Total 2502 / 2937 435 / 2937 703 / 703 Output Total 0 / 0 Balance 2502 / 2937 435 / 2937 703 / 703 Urine Output (Average ml/kg/hr) 0.00 0.00 Intake: Intake, Oral Amount 240 / 240 0 / 240 Intake (Blood Product) Amount 362 / 647 285 / 647 288 / 288 Plt Aph Pas Pathreduced(E8342) 362 / 362 Unit [id number] Red Blood Cells Aph (E0685) 285 / 285 Unit [id number] Red Blood Cells Aph (E0686) 288 / 288 Unit [id number] Intake, IV Amount 1900 / 2050 150 / 2050 415 / 415 0.9 % Sodium Chloride 1,000 ml 1000 / 1000 @ 999 mls/hr IV .Q1H1M ONE Rx#: [id number] 0.9 % Sodium Chloride 100 ml @ 100 / 200 100 / 200 100 / 100 100 mls/hr IV ONCE ONE Rx#: [id number] 0.9 % Sodium Chloride 500 ml @ 500 / 500 500 mls/hr IV .Q1H [facility] Rx#: [id number] cefEPime HCl 2 gm In 0.9 % 50 / 100 50 / 100 50 / 50 Sodium Chloride 50 ml @ 100 mls /hr IV Q12H [facility] Rx#:[id number] vancomycin HCL 1,250 mg In 0.9 250 / 250 % Sodium Chloride 250 ml @ 166. 667 mls/hr IV ONCE ONE Rx#: [id number] vancomycin HCL 750 mg In 0.9 % 265 / 265 Sodium Chloride 250 ml @ 265 mls/hr IV Q24H [facility] Rx#: [id number] Output: Output, Urine Amount 0 / 0 Other: Lunch % Eaten 50% 50% Weight 47.7 kg Weight 47.7 kg BMI result Body Mass Index 18.0 - Constitutional Present: no acute distress - Routine HEENT Exam Head: Present: atraumatic, normal inspection, normocephalic - Routine Neck Exam Present: full ROM - Routine Respiratory Exam Present: decreased breath sounds - Routine Cardiovascular Exam Cardiovascular: Present: RRR, tachycardia - Routine Abdominal Exam Present: diminished bowel sounds - Routine Extremities Exam Present: pallor Data - Labs CBC & Chem 7: 07/20/23 04:48 07/20/23 04:48 Labs: Laboratory Last Values WBC 0.7 X10*3/uL (4.8-10.8) L* 07/20/23 04:48 RBC 2.63 X10*6/uL (4.20-5.50) L 07/20/23 04:48 Hgb 7.7 g/dl (12.0-16.0) L 07/20/23 04:48 Hct 22.2 % (37.0-47.0) L 07/20/23 04:48 MCV 84.4 fL (80.0-98.0) 07/20/23 04:48 MCH 29.3 pg (27.0-33.0) 07/20/23 04:48 MCHC 34.7 g/dl (31.0-35.0) 07/20/23 04:48 RDW 14.3 % (11.0-16.0) 07/20/23 04:48 Plt Count 27 X10*3/uL (160-400) L D 07/20/23 04:48 MPV 11.1 fL (9.4-12.3) 07/20/23 04:48 Immature Gran % (Auto) 4.2 % (0.0-0.4) H 07/20/23 04:48 Neut % (Auto) 46.5 % (45-73) 07/20/23 04:48 Lymph % (Auto) 32.4 % (20-40) 07/20/23 04:48 [place] % (Auto) 16.9 % (2-11) H 07/20/23 04:48 Eos % (Auto) 0.0 % (0-4) 07/20/23 04:48 Baso % (Auto) 0.0 % (0-2) 07/20/23 04:48 Lymph # (Auto) 0.2 X10*3/uL (1.2-4.9) L 07/20/23 04:48 [place] # (Auto) 0.1 X10*3/uL (0.1-1.2) 07/20/23 04:48 Eos # (Auto) 0.0 X10*3/uL (0.0-0.4) 07/20/23 04:48 Baso # (Auto) 0.0 X10*3/uL (0.0-0.2) 07/20/23 04:48 Abs Immat Gran (auto) 0.03 X10*3/uL (0.00-0.03) 07/20/23 04:48 Absolute Neuts (auto) 0.3 x10*3/uL (2.0-8.3) L 07/20/23 04:48 Absolute Nucleated RBC 0.000 X10*3/uL (0.0-0.012) 07/20/23 04:48 Nucleated RBC % (auto) 0.0 /100WBC (0.0-0.2) 07/20/23 04:48 Neutrophils % (Manual) 14 % (45-73) L 07/19/23 08:23 Band Neutrophils % 0 % (3-5) L 07/19/23 08:23 Lymphocytes % (Manual) 46 % (20-40) H 07/19/23 08:23 Atypical Lymphs % (Man) 2 % (0-6) 07/19/23 08:23 Monocytes % (Manual) 16 % (2-11) H 07/19/23 08:23 Promyelocytes % 10 % 07/19/23 08:23 Blast Cells % (Manual) 12 % 07/19/23 08:23 Abs Neuts (Manual) 0.1 X10*3/uL (2.0-8.3) L 07/19/23 08:23 Lymphocytes # (Manual) 0.4 X10*3/uL (1.2-4.9) L 07/19/23 08:23 Monocytes # (Manual) 0.1 X10*3/uL (0.1-1.2) 07/19/23 08:23 Promyelocytes # 0.1 X10*3/uL 07/19/23 08:23 Blast Cells # 0.1 X10*3/uL 07/19/23 08:23 WBC Morphology Comment Not Reportable 07/19/23 08:23 Platelet Estimate DECREASED (NORMAL) 07/19/23 08:23 Plt Morphology Comment NORMAL 07/19/23 08:23 RBC Morphology NOTED 07/19/23 08:23 Tear Drop Cells 1+ (0-2) /OIF 07/19/23 08:23 Smear Tech's Comments VERIFIED 07/20/23 04:48 PT 19.1 SEC (11.1-13.3) H 07/19/23 08:23 INR 1.6 (0.9-1.1) H 07/19/23 08:23 VBG pH 7.45 (7.32-7.43) H 07/19/23 08:31 VBG pCO2 32 mmHg 07/19/23 08:31 VBG pO2 68 mmHg 07/19/23 08:31 VBG HCO3 23 mmol/L (22-26) 07/19/23 08:31 VBG O2 Saturation 95.0 % 07/19/23 08:31 VBG Base Excess -0.1 mmol/L 07/19/23 08:31 Sodium 137 mmol/L (135-145) 07/20/23 04:48 Potassium 4.2 mmol/L (3.3-5.1) 07/20/23 04:48 Chloride 107 mmol/L (96-108) 07/20/23 04:48 Carbon Dioxide 20 mmol/L (22-29) L 07/20/23 04:48 Anion Gap 14 (12-20) 07/20/23 04:48 BUN 21 mg/dL (9-16) H 07/20/23 04:48 Creatinine 0.94 mg/dL (0.5-1.4) 07/20/23 04:48 Estim Creat Clear Calc 40.1 07/20/23 04:48 Estimated GFR 58 07/20/23 04:48 POC Glucose 101 mg/dL (60-115) 07/19/23 07:35 Random Glucose 254 mg/dL (60-115) H 07/20/23 04:48 Lactic Acid 1.1 mmol/L (0.5-2.0) 07/19/23 08:21 Calcium 8.3 mg/dL (8.4-10.2) L 07/20/23 04:48 Magnesium 1.9 mg/dL (1.6-2.6) 07/19/23 08:23 Total Bilirubin 0.5 mg/dL (0.0-1.0) 07/19/23 08:23 Direct Bilirubin 0.3 mg/dL (0.0-0.5) 07/19/23 08:23 AST 17 U/L (5-31) 07/19/23 08:23 ALT 21 U/L (0-31) 07/19/23 08:23 Alkaline Phosphatase 108 U/L (39-117) 07/19/23 08:23 Troponin I High Sens 8.8 ng/L (<3.5-17.0) 07/19/23 08:23 B-Natriuretic Peptide 257 pg/mL (<100) H 07/19/23 08:23 Total Protein 5.4 g/dL (6.5-8.0) L 07/19/23 08:23 Albumin 3.4 g/dL (3.5-5.0) L 07/19/23 08:23 Lipase 6 U/L (8-78) L 07/19/23 08:23 Procalcitonin 10.98 ng/mL 07/19/23 08:23 Respiratory Panel Gar See Note 07/19/23 08:07 Adenovirus (Rapid PCR) Not Detected (Not Detect.) 07/19/23 08:07 B.pert (TEM-PCR) Not Detected (Not Detect.) 07/19/23 08:07 B.parapertussis DNA PCR Not Detected (Not Detect.) 07/19/23 08:07 C. pneumoniae DNA (PCR) Not Detected (Not Detect.) 07/19/23 08:07 Coronavirus OC43 (PCR) Not Detected (Not Detect.) 07/19/23 08:07 Coronavirus HKU1 (PCR) Not Detected (Not Detect.) 07/19/23 08:07 Coronavirus 229E (PCR) Not Detected (Not Detect.) 07/19/23 08:07 Coronavirus NL63 (PCR) Not Detected (Not Detect.) 07/19/23 08:07 Human Metapneumovir PCR Not Detected (Not Detect.) 07/19/23 08:07 Influenza A (RT-PCR) Not Detected (Not Detect.) 07/19/23 08:07 Influenza B (RT-PCR) Not Detected (Not Detect.) 07/19/23 08:07 M. pneumoniae (PCR) Not Detected (Not Detect.) 07/19/23 08:07 Parainfluenza 1 (PCR) Not Detected (Not Detect.) 07/19/23 08:07 Parainfluenza 2 (PCR) Not Detected (Not Detect.) 07/19/23 08:07 Parainfluenza 3 (PCR) Detected (Not Detect.) A 07/19/23 08:07 Parainfluenza 4 (PCR) Not Detected (Not Detect.) 07/19/23 08:07 RSV (PCR) Not Detected (Not Detect.) 07/19/23 08:07 Entero/Rhino (PCR) Not Detected (Not Detect.) 07/19/23 08:07 SARS-CoV-2 RNA (RT-PCR) Not Detected (Not Detect.) 07/19/23 08:07 Blood Type O Positive 07/19/23 08:23 Antibody Screen NEGATIVE 07/19/23 08:23 Crossmatch See Detail 07/19/23 08:23 - Imaging Radiologist's impression: ITS Impressions Chest X-Ray 07/19/23 08:03 IMPRESSION: No acute abnormality. Head CT 07/19/23 09:29 IMPRESSION: No fracture or intracranial bleed. Chest CT 07/19/23 14:52 IMPRESSION: 1. Interstitial patchy ground-glass opacities right lower lobe, suggesting probably atypical infection, interstitial infiltrate pneumonia. No dense lobar consolidation. 2. Mild delgado lobar pulmonary emphysema. 3. No lung mass or suspicious spiculated nodules, there are few scattered tiny nonspecific lung nodular densities measuring up to 4 mm or less. Fleischner criteria does not apply for oncology patients. Further management and/or follow-up should be determined per oncology. 4. Coronary calcification. 5. Calcified mediastinal and hilar lymph nodes might be an old granulomatous disease. 6. Port-A-Cath embedded in the right chest wall with its tip in the SVC. Abdomen/Pelvis CT 07/20/23 14:20 IMPRESSION: No acute inflammatory findings in the abdomen/pelvis. Bronchiolitis in the lower lobes, right greater than left. Assessment and Plan Patient Active problem list reviewed?: Yes (1) Acute myeloid leukemia Status: Acute Assessment and plan: IHer temp was 103 and now is 101.7. She is pancytopenic from decitibine- cedazuridine (Ingovi) chemotherapy. She should be isolated with neutropenic prrcautions. She should receive granix daily until the wbc is above 1000. She has een transfused with platelets and red cells. ID has been consulted. Question antifungal coverage pending cultures.I will follow. Recommend cefepime and vanco. If bleeding or DIC, will iinvolve hematology. - Time Spent With Patient Time Spent with Patient (in minutes): 30
--- NOTE | 2023-07-20 17:32 | PM.EVENT ---
Event Note Date of Service: 07/20/23 Event Note: Called by RN for tachycardia to 156, tachypnea to 32. SaO2 90%. Found to be febrile to 103.1 and bleeding from the L ear canal. L ear canal packed gently with gauze, gauze removed then replaced with Surgicel. Unable to see a clear source of bleeding on otoscopy but bleeding appears to have stopped. APAP given. Pt transferred to telemetry, continuous cardiac monitoring + pulse oximetry. After an hour, Surgicel removed and noted to have some clot in the L ear canal. Approx 1 mL tranexamic acid and 4 drops of triple antibiotic otic solution placed and another piece of Surgicel gently packed. Plan to remove in 4-6 hr. Labs ordered: repeat CBCd, PT/INR, D-dimer, FBG. Discuss antifungal coverage with ID. If DIC score 5 or greater, will give platelets cryoprecipitate. Time Spent With Patient Time: Total time managing care of this patient today ____ minutes.
--- NOTE | 2023-07-20 17:39 | PC.NURSE ---
pt reports neighbor took her clothing home.
[2023-07-20 17:54] LABS: PLT CLUMP 1
[2023-07-20 17:56] LABS: Hemoglobin 9.2 g/dl (12.0-16.0); Mean Corpuscular HGB Conc 36.8 g/dl (31.0-35.0); Mean Corpuscular Hemoglobin 30.4 pg (27.0-33.0); Mean Corpuscular Volume 82.5 fL (80.0-98.0); Mean Platelet Volume 11.6 fL (9.4-12.3); Red Blood Count 3.03 X10*6/uL (4.20-5.50); Red Cell Distribution Width 14.4 % (11.0-16.0)
[2023-07-20 18:05] LABS: Fibrinogen 614 MG/DL (259-690); INTERNATIONAL NORM RATIO 1.4 (0.9-1.1); Prothrombin Time 17.1 SEC (11.1-13.3)
[2023-07-20 18:07] LABS: D Dimer High Sensitivity 2212 NG/ML
[2023-07-20 18:09] LABS: Platelet Count 25 X10*3/uL (160-400)
[2023-07-20 18:11] LABS: White Blood Count 0.8 X10*3/uL (4.8-10.8)
[2023-07-20] MEDS: Caspofungin Acetate 70 MG in 0.9 % Sodium Chloride 250 ML 250 MG IV (19:54)
[2023-07-20] MEDS: traZODone HCL 100 MG TABLET PO (19:54)
[2023-07-21] VITALS (13 sets, daily range): BP systolic 98–118; BP diastolic 46–75; PULSE 68–100; RESP 16–20; TEMP 36.1–37.9; O2SAT 93–100; BMI 18.0
[2023-07-21] MEDS: methylPREDNISolone Sod Succ 40 MG/ML VIAL IVPUSH ×2 (03:57→16:11)
[2023-07-21] MEDS: Levothyroxine Sodium 125 MCG TABLET PO (06:01)
[2023-07-21 06:37] LABS: Baso%MD 1.2 %; Hematocrit 25.8 % (37.0-47.0); Hemoglobin 8.9 g/dl (12.0-16.0); IG%MD 5.8 %; Lymph%MD 33.7 %; Mean Corpuscular HGB Conc 34.5 g/dl (31.0-35.0); Mean Corpuscular Hemoglobin 29.4 pg (27.0-33.0); Mean Corpuscular Volume 85.1 fL (80.0-98.0); Mean Platelet Volume 10.4 fL (9.4-12.3); Neut%MD 45.3 %; Red Blood Count 3.03 X10*6/uL (4.20-5.50); Red Cell Distribution Width 14.6 % (11.0-16.0)
[2023-07-21 06:43] LABS: Platelet Count 45 X10*3/uL (160-400); WBC ABN SCTR FOR CBC 1
[2023-07-21 06:44] LABS: White Blood Count 0.9 X10*3/uL (4.8-10.8)
[2023-07-21 07:04] LABS: Anion Gap 14 (12-20); Blood Urea Nitrogen 17 mg/dL (9-16); Calcium 7.3 mg/dL (8.4-10.2); Carbon Dioxide 21 mmol/L (22-29); Chloride 109 mmol/L (96-108); Creatinine Clr Calc Pharmacy 47.1; Estimated Glomerular Filt Rate > 60; Glucose Random 249 mg/dL (60-115); Potassium 4.8 mmol/L (3.3-5.1); Sodium 139 mmol/L (135-145)
[2023-07-21 07:08] LABS: Procalcitonin 6.81 ng/mL
[2023-07-21] MEDS: Albuterol/Iprat 2.5/0.5MG 3 ML AMPUL.NEB INHALE ×3 (07:46→15:46)
[2023-07-21] MEDS: Acyclovir 200 MG CAPSULE 400 MG PO ×2 (08:15→21:38)
[2023-07-21] MEDS: Loratadine 10 MG TABLET PO (08:15)
[2023-07-21] MEDS: Potassium Chloride ER 20 MEQ TAB.ER.PRT PO (08:15)
[2023-07-21] MEDS: Cyanocobalamin (Vitamin B-12) 1,000 MCG TABLET 1000 MCG PO (08:15)
[2023-07-21] MEDS: 0.9 % Sodium Chloride Flush 3 ML SYRINGE IVFLUSH ×2 (08:16→16:11)
[2023-07-21 08:26] LABS: Band Neutrophils Percent 4 % (3-5); Lymphocytes Absolute Manual 0.1 X10*3/uL (1.2-4.9); Lymphocytes Percent Manual 16 % (20-40); Monocytes Absolute Manual 0.1 X10*3/uL (0.1-1.2); Monocytes Percent Manual 16 % (2-11); Neutrophils Absolute Manual 0.6 X10*3/uL (2.0-8.3); Neutrophils Percent Manual 64 % (45-73); Nucleated Red Blood Cells 1 /100WBC (0-0)
[2023-07-21 08:31] LABS: Microcytosis 1+ (5-14) /OIF; Platelet Estimate DECREASED (NORMAL); Platelet Morphology Comment NORMAL; RBC Morphology NOTED
[2023-07-21 08:32] LABS: WBC Morphology Comment DYSMORPHIC
[2023-07-21] MEDS: Tbo-Filgrastim 300 MCG/0.5 ML SYRINGE SUBCUT (09:18)
[2023-07-21] MEDS: cefEPime HCl 2 GM in 0.9 % Sodium Chloride 50 ML IV ×2 (09:18→21:39)
--- NOTE | 2023-07-21 09:32 | HO.PM.IMPN ---
Subjective Subjective Date of Service: 07/21/23 Interval History: no fever overnight feels better no acute complaints Review of Systems All other review of systems are negative as noted above Physical Exam Vital Signs: Vital Signs: Last Vital Signs Temp 97.6 F 07/21/23 07:18 Pulse 94 07/21/23 07:51 Resp 16 07/21/23 07:51 BP 111/55 L 07/21/23 07:18 Pulse Ox 98 07/21/23 07:18 O2 Del Method Nasal Cannula 07/21/23 07:18 O2 Flow Rate 1 07/21/23 07:18 Oxygen Flow Rate 4 07/19/23 19:40 BMI result Body Mass Index 18.0 Gen: in no acute distress HEENT: sclera anicteric, moist mucus membranes, pale Neck: supple Lungs: diminished bilaterally Heart: regular, tachycardic, no murmurs Abd: soft, non-tender, non-distended Ext: no edema Skin: warm/well-perfused, port in place without signs of infection Neuro: alert and oriented x3, no focal findings Psych: appropriate affect Const: General: cooperative HEENT: Head: Yes normal to inspection Face and sinus: Yes normal facial exam Mouth: Normal oral and palatal mucosa present Teeth and gingiva: dentition normal Eyes: General: appearance normal, both eyes and all related structures Pupils: Equal, round and reactive pupils present Resp: Other: rhonchi bases Cardio: Rate: regular rate Rhythm: regular rhythm GI: Palpation (GI): Soft to palpation and nontender : General: Yes no CVA tenderness Back/Spine/Pelvis: Back: no CVA tenderness Skin: General skin exam: no rashes or lesions noted Neuro: General: moves all extremities Cranial nerves: Yes Equal, round and reactive pupils present Extrem: General: Yes normal to inspection Psych: Appearance: grossly normal Objective Data Active Medications Acetaminophen (Acetaminophen 325 Mg Tablet) 650 mg PO Q6H PRN PRN Reason: Pain, Mild (Pain Scale 1-3) Last Admin: 07/20/23 15:37 Dose: 650 mg Documented By: CAYDEN Acyclovir (Acyclovir 200 Mg Capsule) 400 mg PO BID [facility] Last Admin: 07/21/23 08:15 Dose: 400 mg Documented By: PEDRO Albuterol Sulfate (Albuterol Sulfate (0.083%) 2.5 Mg/3 Ml Vial.Neb) 2.5 mg INHALE Q2H PRN PRN Reason: Shortness of Breath/Wheezing Albuterol/Ipratropium (Albuterol/Iprat 2.5/0.5mg 3 Ml Ampul.Neb) 3 ml INHALE RQ4H WHILE AWAKE [facility] Last Admin: 07/21/23 07:46 Dose: 3 ml Documented By: LÓPEZ Cyanocobalamin (Cyanocobalamin (Vitamin B-12) 1,000 Mcg Tablet) 1,000 mcg PO DAILY [facility] Last Admin: 07/21/23 08:15 Dose: 1,000 mcg Documented By: PEDRO Cefepime HCl 2 gm/ Sodium (Chloride) 50 mls @ 100 mls/hr IV Q12H [facility] Last Admin: 07/21/23 09:18 Dose: 100 mls/hr Documented By: PEDRO Vancomycin HCl 750 mg/ Sodium (Chloride) 265 mls @ 265 mls/hr IV Q24H [facility] Last Infusion: 07/20/23 17:10 Dose: Infused Documented By: SARAI Caspofungin 50 mg/ Sodium (Chloride) 250 mls @ 250 mls/hr IV Q24H [facility] Levothyroxine Sodium (Levothyroxine Sodium 125 Mcg Tablet) 125 mcg PO DAILY@0600 [facility] Last Admin: 07/21/23 06:01 Dose: 125 mcg Documented By: MIRNA Loratadine (Loratadine 10 Mg Tablet) 10 mg PO DAILY [facility] Last Admin: 07/21/23 08:15 Dose: 10 mg Documented By: PEDRO Lorazepam (Lorazepam 0.5 Mg Tablet) 0.5 mg PO DAILY PRN PRN Reason: anxiety Magnesium Hydroxide (Milk Of Magnesia 30 Ml Oral.Susp) 30 ml PO DAILY PRN PRN Reason: Constipation Methylprednisolone Sodium Succinate (Methylprednisolone Sod Succ 40 Mg/Ml Vial) 40 mg IVPUSH Q12H [facility] Last Admin: 07/21/23 03:57 Dose: 40 mg Documented By: MIRNA Ondansetron HCl (Ondansetron Hcl 4 Mg/2 Ml Vial) 4 mg IVPUSH Q8H PRN PRN Reason: Nausea and Vomiting Pharmacy Consult (Consult Rx Vancomycin Dosing) 1 each MISCELLANE DAILY PRN PRN Reason: Consult order Potassium Chloride (Potassium Chloride Er 20 Meq Tab.Er.Prt) 20 meq PO DAILY [facility] Last Admin: 07/21/23 08:15 Dose: 20 meq Documented By: PEDRO Sodium Chloride (0.9 % Sodium Chloride Flush 3 Ml Syringe) 3 ml IVFLUSH QSHIFT [facility] Last Admin: 07/21/23 08:16 Dose: 3 ml Documented By: PEDRO Trazodone HCl (Trazodone Hcl 100 Mg Tablet) 100 mg PO BEDTIME [facility] Last Admin: 07/20/23 19:54 Dose: 100 mg Documented By: ZBIGNIEWOIC Labs 07/21/23 05:57 07/21/23 05:57 Labs: Laboratory Results - last 24 hr 07/19/23 07/20/23 07/21/23 08:23 17:44 05:57 MCV 82.5 85.1 MCH 30.4 29.4 MCHC 36.8 H 34.5 RDW 14.4 14.6 Plt Count 25 L 45 L D MPV 11.6 10.4 Absolute Nucleated RBC 0.000 0.000 Nucleated RBC % (auto) 0.0 0.0 Neutrophils % (Manual) 64 Band Neutrophils % 4 Lymphocytes % (Manual) 16 L Monocytes % (Manual) 16 H Abs Neuts (Manual) 0.6 L Lymphocytes # (Manual) 0.1 L Monocytes # (Manual) 0.1 Nucleated RBCs 1 H WBC Morphology Comment DYSMORPHIC Platelet Estimate DECREASED Plt Morphology Comment NORMAL RBC Morphology NOTED Microcytosis 1+ (5-14) PT 17.1 H INR 1.4 H Fibrinogen 614 D-Dimer High Sensitivty 2212 Anion Gap 14 Estim Creat Clear Calc 47.1 Estimated GFR > 60 Random Glucose 249 H Calcium 7.3 L D Procalcitonin 6.81 Blood Type O Positive Antibody Screen NEGATIVE Crossmatch See Detail Microbiology Microbiology Results: Microbiology 07/19/23 08:40 Blood Culture - Preliminary Blood - Venous No growth after 24 hours. 07/19/23 08:07 Blood Culture - Preliminary Blood - Venous No growth after 24 hours. 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, currently on oral chemotherapy [Inqovi] recent admission 07/08-07/12/23 for neutropenic fever presenting with cough, anorexia, chills, lethargy found to have neutropenia, T 100.3, parainfluenza infection febrile neutropenia atypical pneumonia parainfluenza infection - follow BCx, trend PCT, continue vancomycin + cefepime 07/18-, caspofungin 07/20 - ; ID appreciated - Heme-Onc [Dr Juarez] following, ANC 112->326, continue Granix 300 mcg daily until ANC 1000+ - continue acyclovir prophylaxis - neutropenic + droplet precations thrombocytopenia - transfused 1u platelets, goal >40+ hypoproliferative anemia - transfused 2u pRBCs , continue daily CBCd COPD - continue nebulizer treatments hypothyroidism - continue LT4 mood disorder - trazodone, lorazepam malnutrition - supplements VTE ppx - SCDs dispo - eventual home In my clinical judgment, the patient requires continued inpatient hospitalization for the following reasons: IV ABX, neutropenia Quality Stroke Does the patient have a stroke diagnosis?: No VTE Prior VTE?: No VTE Risk Level:: Medical - moderate - high VTE Device Contraindication: N/A - Device Ordered VTE Drug Contraindication: Treatment Not Indicated
--- NOTE | 2023-07-21 10:17 | MHC.CLN ---
PT IS MODERATELY MALNOURISHED PT WITH MILDLY DEPLETED SUBCUTANEOUS FAT AND MUSCLE MASS WITH BMI 18 AND 9% NONSIGNIFICANT WT LOSS X 1 YEAR WITH CHRONIC POOR PO INTAKE AND INCREASED NUTRITION RISK R/T AML ON ORAL CHEMO PO INTAKE 50% X 2 MEALS DIET RX: REGULAR NEUTROPENIC-APPROPRIATE PT RECEIVING ENSURE TID PROVIDES 1050KCALS, 60G PROTEIN RECOMMEND DECREASING ENSURE TO BID TO PROVIDE 700KCALS, 40G PROTEIN IN ADDITION, WILL ADD MAGIC CUP TID WITH MEALS TO INCREASE KCALS MAGIC CUP TO PROVIDE 870KCALS, 27G PROTEIN WITH 100% ACCEPTANCE MONITOR PO INTAKE AND ENCOURAGE SUPPLEMENTS SEE ALSO FULL CLINICAL NUTRITION ASSESSMENT
--- NOTE | 2023-07-21 10:26 | P.CDIM_ITS ---
PROVIDER RESPONSE TEXT: To clarify, the appropriate diagnosis supported by the clinical indicators: Moderate QUERY TEXT: PHYSICIAN'S DOCUMENTATION REQUEST Date of Query: 07/21/2023 10:15 AM EDT Patient Name: Merline Srinivasan Admit Date: 07/19/2023 Dear Bridget Nuñez MD, A review of the medical record indicates additional documentation may be needed. Please review below and update the documentation accordingly. Clinical indicators: H&P: protein calorie malnutrition in the setting of chemotherapy. Progress note under the Plan: Malnutrition supplements If possible, please provide additional specificity regarding the severity of the malnutrition using t he above information: Mild Moderate Severe Other (explain) Clinically unable to determine (explain) Thank you, Iraida Manning, CCS, CDIS Use of terms such as suspected, likely, concern for, or probable (associated with a specific diagnosi s that is being evaluated, monitored, or treated as if it exists) are acceptable and can be coded in the inpatient se tting, when documented at the time of discharge. Please use your independent medical judgment in providing your response. THIS QUERY IS PART OF THE PERMANENT MEDICAL RECORD
--- NOTE | 2023-07-21 12:55 | P.CDIM_ITS ---
PROVIDER RESPONSE TEXT: To clarify, the appropriate diagnosis supported by the clinical indicators: Viral Sepsis is/was present: viral sepsis complicated by bacterial infection QUERY TEXT: PHYSICIAN'S DOCUMENTATION REQUEST Date of Query: 07/21/2023 12:40 PM EDT Patient Name: Merline Srinivasan Admit Date: 07/19/2023 Dear Bridget Nuñez MD, A review of the medical record indicates additional documentation may be needed. Please review below and update the documentation accordingly. Documentation on the H&P dated 07/19/23 included the diagnosis of viral sepsis. LA 1.1 WBC 0.8 Temp 100.3 HR 114 RR 27 Neutropenic fever, no severe sepsis. Will cover with cefepime and vancomycin, started 07/19/23. ID 07/20/23 - Probable viral illness causing symptoms, continue Cefepime and vancomycin pending blood cultures Sepsis Systemic manifestations of infection, with 2 or more SIRS criteria which include: Fever > 100.4?F or hypothermia < 96.8?F Leukocytosis - WBC > 12,000 or leukopenia, WBC < 4,000, or > 10% bands Tachycardia- > 90 beats/minute Tachypnea- RR > 20 breaths/minute or PaCO2 < 32mmHg Based on the above information and the recognized standard for sepsis, could you please clarify if th is diagnoses is still accurate and reflective of the patient's condition to ensure quality of the medical record. Viral Sepsis is/was present resolved, suspected, possible, probable After study Viral Sepsis has been ruled out Other (explain) Clinically unable to determine (explain) Thank you, Iraida Manning, CCS, CDIS Use of terms such as suspected, likely, concern for, or probable (associated with a specific diagnosi s that is being evaluated, monitored, or treated as if it exists) are acceptable and can be coded in the inpatient se tting, when documented at the time of discharge. Please use your independent medical judgment in providing your response. THIS QUERY IS PART OF THE PERMANENT MEDICAL RECORD
[2023-07-21 14:50] LABS: Vancomycin Random 9.9 mcg/mL (15-20)
--- NOTE | 2023-07-21 15:04 | HE.PHANOTE ---
VANCO Increasing dose from 750 Q24H to 1000 Q24H per subtherapeutic trough, renal function is stable. Next trough to be drawn 07/21 @1400. Predicted trough 13.2, predicted AUC 466.
[2023-07-21] MEDS: vancomycin HCL 1,000 MG in 0.9 % Sodium Chloride 250 ML 270 MG IV (16:14)
[2023-07-21] MEDS: Caspofungin Acetate 50 MG in 0.9 % Sodium Chloride 250 ML 250 MG IV (17:47)
[2023-07-21] MEDS: traZODone HCL 100 MG TABLET PO (21:38)
--- NOTE | 2023-07-21 23:38 | PM.EVENT ---
Event Note Date of Service: 07/21/23 Event Note: 7:09 PM - Gram-positive cocci in cluster seen on the aerobic bottle. Chart reviewed. Patient is receiving vancomycin. Vanco level noted to be low at 2:15 PM. Patient received 1 g of vancomycin IV this afternoon. Time Spent With Patient Time: Total time managing care of this patient today ____ minutes.
[2023-07-22] VITALS (8 sets, daily range): BP systolic 91–135; BP diastolic 51–71; PULSE 85–97; RESP 17–20; TEMP 36.5–37.4; O2SAT 92–95
[2023-07-22] MEDS: methylPREDNISolone Sod Succ 40 MG/ML VIAL IVPUSH ×2 (03:00→16:21)
[2023-07-22] MEDS: 0.9 % Sodium Chloride Flush 3 ML SYRINGE IVFLUSH ×4 (03:02→21:37)
[2023-07-22] MEDS: Levothyroxine Sodium 125 MCG TABLET PO (03:06)
[2023-07-22 06:32] LABS: PLT CLUMP 1
[2023-07-22 06:34] LABS: Baso%MD 0.9 %; Hematocrit 25.8 % (37.0-47.0); IG%MD 22.6 %; Lymph%MD 18.3 %; Mean Corpuscular HGB Conc 34.9 g/dl (31.0-35.0); Mean Corpuscular Hemoglobin 29.5 pg (27.0-33.0); Mean Corpuscular Volume 84.6 fL (80.0-98.0); Mean Platelet Volume 10.4 fL (9.4-12.3); Mono%MD 29.6 %; Neut%MD 28.6 %; Red Blood Count 3.05 X10*6/uL (4.20-5.50); Red Cell Distribution Width 14.2 % (11.0-16.0)
[2023-07-22 06:38] LABS: Platelet Count 27 X10*3/uL (160-400); White Blood Count 1.2 X10*3/uL (4.8-10.8)
[2023-07-22 06:48] LABS: Anion Gap 10 (12-20); Blood Urea Nitrogen 20 mg/dL (9-16); Calcium 8.3 mg/dL (8.4-10.2); Carbon Dioxide 24 mmol/L (22-29); Chloride 104 mmol/L (96-108); Creatinine Clr Calc Pharmacy 42.3; Estimated Glomerular Filt Rate > 60; Glucose Random 219 mg/dL (60-115); Potassium 4.7 mmol/L (3.3-5.1); Sodium 133 mmol/L (135-145)
--- NOTE | 2023-07-22 07:00 | CA_ITS ---
Transthoracic Echocardiogram Patient (Last, First, Middle): Merline Srinivasan A Gender: Female Date of : 1950 Age: 73 Procedure Date: 07/22/2023 Procedure Type: Transthoracic Echocardiogram Location: [facility] [place] Height: 162.56 cm Weight: 47.17 kg BSA: 1.48 m2 Heart Rate: 85 bpm BP: 118 / 80 mmHg Train Operations Supervisor: Referring MD: Bridget Nuñez MD Symptoms: gram positive bacteremia Study Quality: Fair ECG Rhythm: Sinus Conclusions: - The left ventricular systolic function is mildly decreased. The visually estimated ejection fraction is between 45-50%. - Small density 0.7 x 0.6cm on the atrial side of tricuspid valve. Possible thrombus or vegetation. Findings Left Ventricle Normal left ventricular cavity size. There is normal left ventricular wall thickness. The left ventricular systolic function is mildly decreased. The visually estimated ejection fraction is between 45-50%. There is mild global hypokinesis. Diastolic function is normal for age. Right Ventricle Normal right ventricular cavity size and systolic function. Atria Both atria are normal in size. Aortic Valve There is mild calcification of the aortic valve. There is no aortic valve stenosis. There is no aortic valve regurgitation. Mitral Valve The mitral valve appears normal. There is no mitral valve regurgitation. There is no mitral valve stenosis. Pulmonic Valve The pulmonic valve is likely normal. Tricuspid Valve There is trace tricuspid valve regurgitation. There is no evidence of pulmonary hypertension. Small density 0.7 x 0.6cm on the atrial side of tricuspid valve. Possible thrombus or vegetation. Great Vessels The asc aorta is normal in size. Venous The inferior vena cava is mildly dilated and collapses greater than 50% with inspiration. Pericardium/Pleural There is no evidence of pericardial effusion. Prior Study Comparison No prior study available for comparison. Measurements 2D Linear Measurements IVSd: 0.75 0.6-0.9/0.6-1.0 cm LVIDd: 3.94 3.9-5.3/4.2-5.9 cm LVIDd Index: 2.66 2.4-3.2/2.2-3.1 cm/m2 LVIDs: 3.07 2.0-3.6 cm LVPWd: 0.69 0.7-1.1 cm Ao Root: 2.40 2.1-3.5 cm LA Diam: 2.80 2.7-3.8/3.0-4.0 cm LAIDs Index: 1.89 1.5-2.3 cm/m2 LV Mass: 97.62 67-162/88-224 g LV Mass Index: 65.96 43-95/49-115 g/m2 LVOT Diam: 2.00 3.0+(-)1.3 cm Mitral Valve MV Pk E: 0.86 MV PK A: 0.52 MV Decel Time: 111.00 E/A: 1.70 E'Lateral: 12.90 E'Medial: 13.50 E/E' Med: 6.40 E/E' Lat: 6.70 PHT: 32.00 MVA PHT: 6.88 Decel Shannon: 7.76 Aortic Valve AoV Pk Rocky: 1.11 AoV Pk Grad: 5.00 YVON: 1.81 LVOT LVOT Pk Rocky: 0.59 LVOT Mn Rocky: 0.37 LVOT VTI: 0.15 LVOT Pk Grad: 1.00 LVOT Mn Grad: 1.00 LVOT Diam: 2.00 LVOT Area: 3.14 Diastolic Function MV Pk E: 0.86 MV Pk A: 0.52 E/A: 1.70 E'Medial: 13.50 E/E' Med: 6.40 E' Laterial: 12.90 E/E' Lat: 6.70 Right Ventricle TAPSE (mm): 21.60 TVS' Rocky: 14.50 Tricuspid Valve TR Pk Rocky: 1.78 TR Pk Grad: 13.00 RA Press: 3.00 RVSP: 16.00 Great Vessels Aorta Ao Root-2D: 2.40 2.0-3.7 cm Ao Asc: 2.70 2.1-3.4 cm Pulmonary Valve PV Pk Rocky: 0.84 Peak PV Grad: 3.00 Updated in Other Vendor System with Status of Final Stephane Ball MD electronically signed on 07/23/2023 10:17:00 AM with status of Final
[2023-07-22 07:29] LABS: Atypical Lymph Absolute Manual 0.1 x10*3/uL; Atypical Lymphs Percent Manual 6 % (0-6); Band Neutrophils Percent 6 % (3-5); Lymphocytes Absolute Manual 0.1 X10*3/uL (1.2-4.9); Lymphocytes Percent Manual 12 % (20-40); Monocytes Absolute Manual 0.3 X10*3/uL (0.1-1.2); Monocytes Percent Manual 22 % (2-11); Neutrophils Absolute Manual 0.7 X10*3/uL (2.0-8.3); Neutrophils Percent Manual 54 % (45-73)
[2023-07-22 07:32] LABS: RBC Morphology NOTED
[2023-07-22 07:33] LABS: Burr Cells 1+ (0-2) /OIF; Microcytosis 1+ (5-14) /OIF; Platelet Estimate DECREASED (NORMAL); Platelet Morphology Comment NORMAL; WBC Morphology Comment DYSMORPHIC
[2023-07-22] MEDS: Potassium Chloride ER 20 MEQ TAB.ER.PRT PO (08:42)
[2023-07-22] MEDS: Loratadine 10 MG TABLET PO (08:42)
[2023-07-22] MEDS: Acyclovir 200 MG CAPSULE 400 MG PO ×2 (08:42→21:34)
[2023-07-22] MEDS: Cyanocobalamin (Vitamin B-12) 1,000 MCG TABLET 1000 MCG PO (08:43)
--- NOTE | 2023-07-22 08:43 | HO.PM.IMPN ---
Subjective Subjective Date of Service: 07/22/23 Interval History: no fever overnight feels better no acute complaints Review of Systems All other review of systems are negative as noted above Physical Exam Vital Signs: Vital Signs: Last Vital Signs Temp 98.3 F 07/22/23 07:48 Pulse 85 07/22/23 07:48 Resp 20 07/22/23 07:48 BP 107/58 L 07/22/23 07:48 Pulse Ox 94 07/22/23 07:48 O2 Del Method Room Air 07/22/23 07:48 O2 Flow Rate 94 07/21/23 23:21 Oxygen Flow Rate 4 07/19/23 19:40 BMI result Body Mass Index 18.0 Gen: in no acute distress HEENT: sclera anicteric, moist mucus membranes, pale Neck: supple Lungs: diminished bilaterally Heart: regular, tachycardic, no murmurs Abd: soft, non-tender, non-distended Ext: no edema Skin: warm/well-perfused, port in place without signs of infection Neuro: alert and oriented x3, no focal findings Psych: appropriate affect Const: General: cooperative HEENT: Head: Yes normal to inspection Face and sinus: Yes normal facial exam Mouth: Normal oral and palatal mucosa present Teeth and gingiva: dentition normal Eyes: General: appearance normal, both eyes and all related structures Pupils: Equal, round and reactive pupils present Resp: Other: rhonchi bases Cardio: Rate: regular rate Rhythm: regular rhythm GI: Palpation (GI): Soft to palpation and nontender : General: Yes no CVA tenderness Back/Spine/Pelvis: Back: no CVA tenderness Skin: General skin exam: no rashes or lesions noted Neuro: General: moves all extremities Cranial nerves: Yes Equal, round and reactive pupils present Extrem: General: Yes normal to inspection Psych: Appearance: grossly normal Objective Data Active Medications Acetaminophen (Acetaminophen 325 Mg Tablet) 650 mg PO Q6H PRN PRN Reason: Pain, Mild (Pain Scale 1-3) Last Admin: 07/20/23 15:37 Dose: 650 mg Documented By: CAYDEN Acyclovir (Acyclovir 200 Mg Capsule) 400 mg PO BID [facility] Last Admin: 07/21/23 21:38 Dose: 400 mg Documented By: BRANDT Albuterol Sulfate (Albuterol Sulfate (0.083%) 2.5 Mg/3 Ml Vial.Neb) 2.5 mg INHALE Q2H PRN PRN Reason: Shortness of Breath/Wheezing Albuterol/Ipratropium (Albuterol/Iprat 2.5/0.5mg 3 Ml Ampul.Neb) 3 ml INHALE RQ4H WHILE AWAKE [facility] Last Admin: 07/22/23 07:40 Dose: Not Given Documented By: ANDREW Non-Admin Reason: Patient Refused Cyanocobalamin (Cyanocobalamin (Vitamin B-12) 1,000 Mcg Tablet) 1,000 mcg PO DAILY [facility] Last Admin: 07/21/23 08:15 Dose: 1,000 mcg Documented By: PEDRO Cefepime HCl 2 gm/ Sodium (Chloride) 50 mls @ 100 mls/hr IV Q12H [facility] Last Infusion: 07/21/23 22:14 Dose: Infused Documented By: BRANDT Caspofungin 50 mg/ Sodium (Chloride) 250 mls @ 250 mls/hr IV Q24H [facility] Last Infusion: 07/21/23 18:48 Dose: Infused Documented By: BRANDT Vancomycin HCl 1,000 mg/ (Sodium Chloride) 270 mls @ 270 mls/hr IV Q24H [facility] Last Infusion: 07/21/23 17:15 Dose: Infused Documented By: BRANDT Levothyroxine Sodium (Levothyroxine Sodium 125 Mcg Tablet) 125 mcg PO DAILY@0600 [facility] Last Admin: 07/22/23 03:06 Dose: 125 mcg Documented By: HARINI Loratadine (Loratadine 10 Mg Tablet) 10 mg PO DAILY [facility] Last Admin: 07/21/23 08:15 Dose: 10 mg Documented By: PEDRO Lorazepam (Lorazepam 0.5 Mg Tablet) 0.5 mg PO DAILY PRN PRN Reason: anxiety Magnesium Hydroxide (Milk Of Magnesia 30 Ml Oral.Susp) 30 ml PO DAILY PRN PRN Reason: Constipation Methylprednisolone Sodium Succinate (Methylprednisolone Sod Succ 40 Mg/Ml Vial) 40 mg IVPUSH Q12H [facility] Last Admin: 07/22/23 03:00 Dose: 40 mg Documented By: HARINI Ondansetron HCl (Ondansetron Hcl 4 Mg/2 Ml Vial) 4 mg IVPUSH Q8H PRN PRN Reason: Nausea and Vomiting Pharmacy Consult (Consult Rx Vancomycin Dosing) 1 each MISCELLANE DAILY PRN PRN Reason: Consult order Potassium Chloride (Potassium Chloride Er 20 Meq Tab.Er.Prt) 20 meq PO DAILY [facility] Last Admin: 07/21/23 08:15 Dose: 20 meq Documented By: PEDRO Sodium Chloride (0.9 % Sodium Chloride Flush 3 Ml Syringe) 3 ml IVFLUSH QSHIFT [facility] Last Admin: 07/22/23 03:02 Dose: 3 ml Documented By: BROOKE-JOES LUIS Trazodone HCl (Trazodone Hcl 100 Mg Tablet) 100 mg PO BEDTIME [facility] Last Admin: 07/21/23 21:38 Dose: 100 mg Documented By: BRANDT Labs 07/22/23 06:10 07/22/23 06:10 Labs: Laboratory Results - last 24 hr 07/21/23 07/22/23 14:15 06:10 MCV 84.6 MCH 29.5 MCHC 34.9 RDW 14.2 Plt Count 27 L D MPV 10.4 Absolute Nucleated RBC 0.000 Nucleated RBC % (auto) 0.0 Neutrophils % (Manual) 54 Band Neutrophils % 6 H Lymphocytes % (Manual) 12 L Atypical Lymphs % (Man) 6 Monocytes % (Manual) 22 H Abs Neuts (Manual) 0.7 L Lymphocytes # (Manual) 0.1 L Atyp Lymphs # (Manual) 0.1 Monocytes # (Manual) 0.3 WBC Morphology Comment DYSMORPHIC Platelet Estimate DECREASED Plt Morphology Comment NORMAL RBC Morphology NOTED Microcytosis 1+ (5-14) Clifton Cells 1+ (0-2) Anion Gap 10 L Estim Creat Clear Calc 42.3 Estimated GFR > 60 Random Glucose 219 H Calcium 8.3 L D Random Vancomycin 9.9 L Microbiology Microbiology Results: Microbiology 07/20/23 18:35 Blood Culture - Preliminary Blood - Venous No growth after 24 hours. 07/20/23 18:35 Blood Culture - Preliminary Blood - Central Line Prelim: GPC Gram Stain only 07/19/23 08:40 Blood Culture - Preliminary Blood - Venous No growth after 48 hours. 07/19/23 08:07 Blood Culture - Preliminary Blood - Venous No growth after 48 hours. 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 Obtaining echo -Continue vancomycin + cefepime 07/18-, caspofungin 07/20 - ; ID appreciated - Heme-Onc [Dr Juarez] on board, continue Granix 300 mcg daily until ANC 1000+ - continue acyclovir prophylaxis - neutropenic + droplet precations thrombocytopenia - transfused 2u platelets, goal >40+ hypoproliferative anemia - transfused 2u pRBCs , continue daily CBCd COPD - continue nebulizer treatments hypothyroidism - continue LT4 mood disorder - trazodone, lorazepam malnutrition - supplements VTE ppx - SCDs dispo - eventual home In my clinical judgment, the patient requires continued inpatient hospitalization for the following reasons: IV ABX, neutropenia, thrombocytopenia Quality Stroke Does the patient have a stroke diagnosis?: No VTE Prior VTE?: No VTE Risk Level:: Medical - moderate - high VTE Device Contraindication: N/A - Device Ordered VTE Drug Contraindication: Treatment Not Indicated
[2023-07-22] MEDS: cefEPime HCl 2 GM in 0.9 % Sodium Chloride 50 ML IV ×2 (08:44→21:35)
--- NOTE | 2023-07-22 10:17 | P.CNHO_ITS ---
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 She later relapsed and was treated with chemotherapy to remission followed by stem cell transplant at [facility]. She later relapsed and was treated with CAR-T therapy at [facility] to durable remission which has been durable. Over the last 2 years a macrocytic anemia evolved into AML. Second malignancies are being seen with CAR-T. She recently had remission induction with chemotherapy at [facility] but did not acheive remission. She is receiving palliatiave chemotherapy with decitibine-cedazuridine (Inqovi) at [facility] with Dr. Grayson. Patient was admitted on 07/09/2023 to [facility] because of severe pancytopenia secondary to ongoing chemotherapy for AML. She was referred by Dr. Juarez for admission because her platelet count was down to 5 K. evaluation in the ED also revealed that patient was febrile, she had neutropenia in her platelets were 4 K. Tested negative for a flu, RSV, COVID. CXR showed no acute intrathoracic disease, but showed emphysema. EKG demonstrated sinus tachycardia of 107 with no evidence of significant ST elevations or depressions. Pt was treated with cefepime, acetaminophen, and IVF. Pt will be admitted to the hospital for treatment and further evaluation of neutropenic fever, thrombocytopenia, and anemia in the setting of acute myeloid leukemia. She subsequently tested positive for parainfluenza. On 07/20/2023 she developed spontaneous bleeding from her left ear. I was consulted because of suspicion for DIC. Review of Systems - Constitutional Reports as per HPI, Reports fatigue, Reports malaise - Cardiovascular Reports no additional cardiovascular complaints - Respiratory Reports no additional respiratory complaints - Neurologic Reports syncope, Reports numbness, Reports other PMFSH Medical History: Medical History (Last Reviewed 07/19/23 @ 13:50 by MARYANN Schroeder) Anemia Anxiety COPD (chronic obstructive pulmonary disease) COPD with asthma Depression Dyspnea Hypothyroidism Non-Hodgkin lymphoma in remission Tobacco dependence Family History: Family History (Last Reviewed 05/28/24 @ 13:50 by MARYANN Schroeder) Father CAD (coronary artery disease) Surgical History: Surgical History (Last Reviewed 07/19/23 @ 13:50 by MARYANN Schroeder) H/O: hysterectomy History of salpingo-oophorectomy S/P angiogram of extremity Onset Date: 02/13/20 Social History: Social History (Last Reviewed 07/19/23 @ 13:50 by MARYANN Schroeder) Living Situation History: Household Members: None Housing: House Do you presently have visiting nurse or other home services: No Tobacco History: Patient Tobacco Use Status: Current everyday Tobacco Tobacco use type: Cigar Cigarette Packs Per Day: 1 Years Smoked: 40 Second Hand Smoke Exposure: No Advance Directives: Advance Directives Date on File: 07/16/21 Occupation Assessmet: service: No Current occupational status: retired Home Medications and Allergies Current Medications: Current Medications Acetaminophen (Acetaminophen 325 Mg Tablet) 650 mg PO Q6H PRN PRN Reason: Pain, Mild (Pain Scale 1-3) Last Admin: 07/20/23 15:37 Dose: 650 mg Acyclovir (Acyclovir 200 Mg Capsule) 400 mg PO BID [facility] Last Admin: 07/22/23 08:42 Dose: 400 mg Albuterol Sulfate (Albuterol Sulfate (0.083%) 2.5 Mg/3 Ml Vial.Neb) 2.5 mg INHALE Q2H PRN PRN Reason: Shortness of Breath/Wheezing Albuterol/Ipratropium (Albuterol/Iprat 2.5/0.5mg 3 Ml Ampul.Neb) 3 ml INHALE RQ4H WHILE AWAKE [facility] Last Admin: 07/22/23 07:40 Dose: Not Given Cyanocobalamin (Cyanocobalamin (Vitamin B-12) 1,000 Mcg Tablet) 1,000 mcg PO DAILY [facility] Last Admin: 07/22/23 08:43 Dose: 1,000 mcg Cefepime HCl 2 gm/ Sodium (Chloride) 50 mls @ 100 mls/hr IV Q12H [facility] Last Infusion: 07/22/23 09:54 Dose: Infused Caspofungin 50 mg/ Sodium (Chloride) 250 mls @ 250 mls/hr IV Q24H [facility] Last Infusion: 07/21/23 18:48 Dose: Infused Vancomycin HCl 1,000 mg/ (Sodium Chloride) 270 mls @ 270 mls/hr IV Q24H [facility] Last Infusion: 07/21/23 17:15 Dose: Infused Levothyroxine Sodium (Levothyroxine Sodium 125 Mcg Tablet) 125 mcg PO DAILY@0600 [facility] Last Admin: 07/22/23 03:06 Dose: 125 mcg Loratadine (Loratadine 10 Mg Tablet) 10 mg PO DAILY [facility] Last Admin: 07/22/23 08:42 Dose: 10 mg Lorazepam (Lorazepam 0.5 Mg Tablet) 0.5 mg PO DAILY PRN PRN Reason: anxiety Magnesium Hydroxide (Milk Of Magnesia 30 Ml Oral.Susp) 30 ml PO DAILY PRN PRN Reason: Constipation Methylprednisolone Sodium Succinate (Methylprednisolone Sod Succ 40 Mg/Ml Vial) 40 mg IVPUSH Q12H [facility] Last Admin: 07/22/23 03:00 Dose: 40 mg Ondansetron HCl (Ondansetron Hcl 4 Mg/2 Ml Vial) 4 mg IVPUSH Q8H PRN PRN Reason: Nausea and Vomiting Pharmacy Consult (Consult Rx Vancomycin Dosing) 1 each MISCELLANE DAILY PRN PRN Reason: Consult order Potassium Chloride (Potassium Chloride Er 20 Meq Tab.Er.Prt) 20 meq PO DAILY [facility] Last Admin: 07/22/23 08:42 Dose: 20 meq Sodium Chloride (0.9 % Sodium Chloride Flush 3 Ml Syringe) 3 ml IVFLUSH QSHIFT [facility] Last Admin: 07/22/23 08:43 Dose: 3 ml Trazodone HCl (Trazodone Hcl 100 Mg Tablet) 100 mg PO BEDTIME [facility] Last Admin: 07/21/23 21:38 Dose: 100 mg Home Medications ?Medication ?Instructions ?Recorded ?Confirmed ?Type acyclovir 400 mg tablet 400 mg PO BID 01/31/20 07/19/23 History levothyroxine 125 mcg tablet 125 mcg PO DAILY@0600 01/31/20 07/19/23 History trazodone 100 mg tablet 100 mg PO BEDTIME 01/31/20 07/19/23 History lorazepam 0.5 mg tablet 0.5 mg PO DAILY PRN anxiety 03/01/22 07/19/23 History cyanocobalamin (vitamin B-12) 1,000 mcg PO DAILY 02/02/23 07/19/23 History 1,000 mcg tablet potassium chloride 20 mEq 20 meq PO DAILY 02/02/23 07/19/23 History tablet,extended release fexofenadine 180 mg tablet 180 mg PO DAILY 07/10/23 07/19/23 History (Nahed Allergy) Allergies Allergy/AdvReac Type Severity Reaction Status Date / Time adhesive tape Allergy Unknown RASH Verified 07/19/23 07:24 bacitracin [Bacitracin] Allergy Unknown RASH Verified 07/19/23 07:24 Physical Exam Vital signs: Vital Signs Temp 98.3 F 07/22/23 07:48 Pulse 85 07/22/23 07:48 Resp 20 07/22/23 07:48 BP 107/58 L 07/22/23 07:48 Pulse Ox 94 07/22/23 07:48 O2 Del Method Room Air 07/22/23 07:48 O2 Flow Rate 94 07/21/23 23:21 Intake & Output 07/21/23 07/22/23 07/22/23 18:59 06:59 18:59 Intake Total 570 / 980 410 / 980 50 / 50 Output Total 300 / 700 400 / 700 Balance 270 / 280 10 / 280 50 / 50 Urine Output (Average ml/kg/hr) 0.52 0.70 0.70 Intake: Intake, Oral Amount 360 / 360 Intake, IV Amount 570 / 620 50 / 620 50 / 50 Caspofungin Acetate 50 mg In 0. 250 / 250 9 % Sodium Chloride 250 ml @ 250 mls/hr IV Q24H [facility] Rx#: [id number] cefEPime HCl 2 gm In 0.9 % 50 / 100 50 / 100 50 / 50 Sodium Chloride 50 ml @ 100 mls /hr IV Q12H [facility] Rx#:[id number] vancomycin HCL 1,000 mg In 0.9 270 / 270 % Sodium Chloride 250 ml @ 270 mls/hr IV Q24H [facility] Rx#: [id number] Output: Output, Urine Amount 300 / 700 400 / 700 Other: Number of Incontinent Voids 1 Urine [facility] Urine Color Yellow Yellow Last Bowel Movement 07/21/23 07/21/23 Stool Bedpan Stool Amount Moderate Stool Color Brown Stool Consistency Soft Weight 47.7 kg Weight 47.7 kg - Constitutional Present: no acute distress, chronically ill appearing, cooperative - Routine HEENT Exam Eye: Present: EOMI, conjunctivae pale, PERRL - Routine Neck Exam Present: supple. Absent: lymphadenopathy - Routine Respiratory Exam Absent: accessory muscle use - Routine Cardiovascular Exam Cardiovascular: Present: S1, S2 - Routine Abdominal Exam Present: soft - Routine Extremities Exam Absent: pedal edema - Routine Skin Exam Present: intact - Routine Neurological Exam Present: alert, oriented X3 Hem/Onc Consult Result - Labs CBC & Chem 7: 07/22/23 06:10 07/22/23 06:10 Labs: Short CBC 07/22/23 Range/Units 06:10 WBC 1.2 L (4.8-10.8) X10*3/uL Hgb 9.0 L (12.0-16.0) g/dl Hct 25.8 L (37.0-47.0) % Plt Count 27 L D (160-400) X10*3/uL BMP 07/22/23 06:10 Sodium 133 L Potassium 4.7 Chloride 104 Carbon Dioxide 24 BUN 20 H Creatinine 0.89 Calcium 8.3 L D Assessment and Plan Patient Active problem list reviewed?: Yes (1) Acute myeloid leukemia Status: Acute Assessment and plan: This is a 73-year-old woman 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 Her past history significant for diffuse large B-cell lymphoma initially diagnosed in 2012 who has been in remission since 2018 after she received car T-cell therapy at [facility]. Since 2021 she has had worsening macrocytic anemia with severe reticulocytopenia. Bone marrow aspiration/biopsy performed 09/20/2022 showed involvement by myeloblasts with background dysplasia. Bone marrow cellularity was 40%, Atypical mononuclear cells are approximately 30% of marrow cellularity, 8% in peripheral blood and 18% by flow cytometry. Consistent with acute myeloid leukemia related to prior therapy. 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 She is currently being treated at [facility] and [facility] for therapy related AML. She is now on decitabine-cedazuridine since May 2023. She is admitted with pancytopenia secondary to ongoing treatment as well as viral infection. She developed an episode of spontaneous bleeding from her left ear a couple of days ago. I reviewed DIC panel with the hospitalist, she has mild elevation of INR with fibrinogen of over 600. A day prior her platelet count was down to 11 K which might be the cause of her bleeding. I did not feel she had DIC. She responded to platelet transfusion, she no longer has any spontaneous bleeding. She is on Granix, her ANC is improving. At this time she is responding to supportive measures and IV antibiotics. I thank you for the referral. - Time Spent With Patient Time Spent with Patient (in minutes): 15
--- NOTE | 2023-07-22 10:20 | MHC.CM.PN ---
Per ROUNDS discussion, Patient is not yet medically cleared for dc (IV ABT, Neutropenia, Thrombocytopenia); home is the goal and CM will continue to follow.
--- NOTE | 2023-07-22 11:15 | MHC.CLN ---
F/U PT IS MODERATELY MALNOURISHED SEE FULL CLINICAL NUTRITION ASSESSMENT DATED 07/21/23 PO INTAKE 50% X 2 MEALS DIET RX: REGULAR NEUTROPENIC-APPROPRIATE PT RECEIVING ENSURE TO BID TO PROVIDE 700KCALS, 40G PROTEIN IN ADDITION, PT RECEIVING MAGIC CUP TID WITH MEALS TO INCREASE KCALS MAGIC CUP TO PROVIDE 870KCALS, 27G PROTEIN WITH 100% ACCEPTANCE MONITOR PO INTAKE AND ENCOURAGE SUPPLEMENTS
--- NOTE | 2023-07-22 12:17 | P.PNHO-ONC_ITS ---
Medical Summary - Medical Summary Date of Service: 07/22/23 Chief complaint: AML Primary Care Provider: Burt Juarez MD Interval History Interval history: Merline Srinivasan is a 73 year old female with pancytopenia from recent chemotherapy for AML. She is treated at [facility] by Dr. Wolff and at [facility]. She remains pancytopenic today and has received red cells and platelets. She is receiving Granix injections. She has has some bleeding from the left ear canal. She spiked a temperature of 103 earlier this wek but is afebrile. Her respiratory panel is positive for parainfluenza A Review of Systems - Constitutional Reports anorexia - ENT Comments: bleeding left ear has ceased - Respiratory Reports cough - Gastrointestinal Reports feeling full early - Musculoskeletal Reports stiffness - Neurologic Reports syncope, Reports numbness, Reports other [facility] Medical History: Medical History (Last Reviewed 07/19/23 @ 13:50 by MARYANN Hager) Anemia Anxiety COPD (chronic obstructive pulmonary disease) COPD with asthma Depression Dyspnea Hypothyroidism Non-Hodgkin lymphoma in remission Tobacco dependence Family History: Family History (Last Reviewed 07/19/23 @ 13:50 by MARYANN Hager) Father CAD (coronary artery disease) Surgical History: Surgical History (Last Reviewed 07/19/23 @ 13:50 by MARYANN Hager) H/O: hysterectomy History of salpingo-oophorectomy S/P angiogram of extremity Onset Date: 02/13/20 Social History: Social History (Last Reviewed 07/19/23 @ 13:50 by MARYANN Hager) Living Situation History: Household Members: None Housing: House Do you presently have visiting nurse or other home services: No Tobacco History: Patient Tobacco Use Status: Current everyday Tobacco Tobacco use type: Cigar Cigarette Packs Per Day: 1 Years Smoked: 40 Second Hand Smoke Exposure: No Advance Directives: Advance Directives Date on File: 07/16/21 Occupation Assessmet: service: No Current occupational status: retired Home Medications and Allergies Current Medications: Current Medications Acetaminophen (Acetaminophen 325 Mg Tablet) 650 mg PO Q6H PRN PRN Reason: Pain, Mild (Pain Scale 1-3) Last Admin: 07/20/23 15:37 Dose: 650 mg Acyclovir (Acyclovir 200 Mg Capsule) 400 mg PO BID [facility] Last Admin: 07/22/23 08:42 Dose: 400 mg Albuterol Sulfate (Albuterol Sulfate (0.083%) 2.5 Mg/3 Ml Vial.Neb) 2.5 mg INHALE Q2H PRN PRN Reason: Shortness of Breath/Wheezing Albuterol/Ipratropium (Albuterol/Iprat 2.5/0.5mg 3 Ml Ampul.Neb) 3 ml INHALE RQ4H WHILE AWAKE [facility] Last Admin: 07/22/23 11:32 Dose: Not Given Cyanocobalamin (Cyanocobalamin (Vitamin B-12) 1,000 Mcg Tablet) 1,000 mcg PO DAILY [facility] Last Admin: 07/22/23 08:43 Dose: 1,000 mcg Cefepime HCl 2 gm/ Sodium (Chloride) 50 mls @ 100 mls/hr IV Q12H [facility] Last Infusion: 07/22/23 09:54 Dose: Infused Caspofungin 50 mg/ Sodium (Chloride) 250 mls @ 250 mls/hr IV Q24H [facility] Last Infusion: 07/21/23 18:48 Dose: Infused Vancomycin HCl 1,000 mg/ (Sodium Chloride) 270 mls @ 270 mls/hr IV Q24H [facility] Last Infusion: 07/21/23 17:15 Dose: Infused Levothyroxine Sodium (Levothyroxine Sodium 125 Mcg Tablet) 125 mcg PO DAILY@0600 [facility] Last Admin: 07/22/23 03:06 Dose: 125 mcg Loratadine (Loratadine 10 Mg Tablet) 10 mg PO DAILY [facility] Last Admin: 07/22/23 08:42 Dose: 10 mg Lorazepam (Lorazepam 0.5 Mg Tablet) 0.5 mg PO DAILY PRN PRN Reason: anxiety Magnesium Hydroxide (Milk Of Magnesia 30 Ml Oral.Susp) 30 ml PO DAILY PRN PRN Reason: Constipation Methylprednisolone Sodium Succinate (Methylprednisolone Sod Succ 40 Mg/Ml Vial) 40 mg IVPUSH Q12H [facility] Last Admin: 07/22/23 03:00 Dose: 40 mg Ondansetron HCl (Ondansetron Hcl 4 Mg/2 Ml Vial) 4 mg IVPUSH Q8H PRN PRN Reason: Nausea and Vomiting Pharmacy Consult (Consult Rx Vancomycin Dosing) 1 each MISCELLANE DAILY PRN PRN Reason: Consult order Potassium Chloride (Potassium Chloride Er 20 Meq Tab.Er.Prt) 20 meq PO DAILY [facility] Last Admin: 07/22/23 08:42 Dose: 20 meq Sodium Chloride (0.9 % Sodium Chloride Flush 3 Ml Syringe) 3 ml IVFLUSH QSHIFT [facility] Last Admin: 07/22/23 08:43 Dose: 3 ml Trazodone HCl (Trazodone Hcl 100 Mg Tablet) 100 mg PO BEDTIME [facility] Last Admin: 07/21/23 21:38 Dose: 100 mg Home Medications ?Medication ?Instructions ?Recorded ?Confirmed ?Type acyclovir 400 mg tablet 400 mg PO BID 01/31/20 07/19/23 History levothyroxine 125 mcg tablet 125 mcg PO DAILY@0600 01/31/20 07/19/23 History trazodone 100 mg tablet 100 mg PO BEDTIME 01/31/20 07/19/23 History lorazepam 0.5 mg tablet 0.5 mg PO DAILY PRN anxiety 03/01/22 07/19/23 History cyanocobalamin (vitamin B-12) 1,000 mcg PO DAILY 02/02/23 07/19/23 History 1,000 mcg tablet potassium chloride 20 mEq 20 meq PO DAILY 02/02/23 07/19/23 History tablet,extended release fexofenadine 180 mg tablet 180 mg PO DAILY 07/10/23 07/19/23 History (Nahed Allergy) Allergies Allergy/AdvReac Type Severity Reaction Status Date / Time adhesive tape Allergy Unknown RASH Verified 07/19/23 07:24 bacitracin [Bacitracin] Allergy Unknown RASH Verified 07/19/23 07:24 Exam Vital signs: Vital Signs Temp 98.0 F 07/22/23 11:56 Pulse 96 07/22/23 11:56 Resp 17 07/22/23 11:56 BP 118/62 07/22/23 11:56 Pulse Ox 94 07/22/23 11:40 O2 Del Method Room Air 07/22/23 11:40 O2 Flow Rate 94 07/21/23 23:21 Intake & Output 07/21/23 07/22/23 07/22/23 18:59 06:59 18:59 Intake Total 570 / 980 410 / 980 50 / 50 Output Total 300 / 700 400 / 700 Balance 270 / 280 10 / 280 50 / 50 Urine Output (Average ml/kg/hr) 0.52 0.70 0.70 Intake: Intake, Oral Amount 360 / 360 Intake (Blood Product) Amount 0 / 0 Plt Aph Pas Pathreduced(E8342) 0 / 0 Unit [id number] Intake, IV Amount 570 / 620 50 / 620 50 / 50 Caspofungin Acetate 50 mg In 0. 250 / 250 9 % Sodium Chloride 250 ml @ 250 mls/hr IV Q24H [facility] Rx#: [id number] cefEPime HCl 2 gm In 0.9 % 50 / 100 50 / 100 50 / 50 Sodium Chloride 50 ml @ 100 mls /hr IV Q12H [facility] Rx#:[id number] vancomycin HCL 1,000 mg In 0.9 270 / 270 % Sodium Chloride 250 ml @ 270 mls/hr IV Q24H [facility] Rx#: [id number] Output: Output, Urine Amount 300 / 700 400 / 700 Other: Number of Incontinent Voids 1 Urine [facility] Urine Color Yellow Yellow Last Bowel Movement 07/21/23 07/21/23 Stool Bedpan Stool Amount Moderate Stool Color Brown Stool Consistency Soft Weight 47.7 kg Weight 47.7 kg BMI result Body Mass Index 18.0 - Constitutional Present: no acute distress - Routine HEENT Exam Head: Present: atraumatic, normal inspection, normocephalic - Routine Neck Exam Present: full ROM - Routine Respiratory Exam Present: decreased breath sounds - Routine Cardiovascular Exam Cardiovascular: Present: RRR, tachycardia - Routine Abdominal Exam Present: diminished bowel sounds - Routine Extremities Exam Present: pallor Data - Labs CBC & Chem 7: 07/22/23 06:10 07/22/23 06:10 - Imaging Radiologist's impression: ITS Impressions Chest X-Ray 07/19/23 08:03 IMPRESSION: No acute abnormality. Head CT 07/19/23 09:29 IMPRESSION: No fracture or intracranial bleed. Chest CT 07/19/23 14:52 IMPRESSION: 1. Interstitial patchy ground-glass opacities right lower lobe, suggesting probably atypical infection, interstitial infiltrate pneumonia. No dense lobar consolidation. 2. Mild delgado lobar pulmonary emphysema. 3. No lung mass or suspicious spiculated nodules, there are few scattered tiny nonspecific lung nodular densities measuring up to 4 mm or less. Fleischner criteria does not apply for oncology patients. Further management and/or follow-up should be determined per oncology. 4. Coronary calcification. 5. Calcified mediastinal and hilar lymph nodes might be an old granulomatous disease. 6. Port-A-Cath embedded in the right chest wall with its tip in the SVC. Abdomen/Pelvis CT 07/20/23 14:20 IMPRESSION: No acute inflammatory findings in the abdomen/pelvis. Bronchiolitis in the lower lobes, right greater than left. Assessment and Plan Patient Active problem list reviewed?: Yes (1) Acute myeloid leukemia Status: Acute Assessment and plan: IHer temp was 103 and now is 101.7. She is pancytopenic from decitibine- cedazuridine (Ingovi) chemotherapy. She should be isolated with neutropenic prrcautions. She should receive granix daily until the wbc is above 1000. She has een transfused with platelets and red cells. ID has been consulted. Question antifungal coverage pending cultures.I will follow. Recommend cefepime and vanco. Blood cultures are showing G+C in clusters. Her respiratory panel is positive for parainfluenza. She is being transfused with platelets. Hematology is involved. No bleeding is present. - Time Spent With Patient Time Spent with Patient (in minutes): 15
--- NOTE | 2023-07-22 15:06 | P.PNID_ITS ---
Subjective Subjective Date of Service: 07/21/23 Critical Care Time (minutes): 15 Comment: She has no complaints and temperature 100.3 ,now afebrile Objective Data Labs 07/22/23 06:10 07/22/23 06:10 Labs: Laboratory Results - last 24 hr 07/22/23 07/22/23 07/22/23 06:10 10:00 14:05 WBC 1.2 L RBC 3.05 L Hgb 9.0 L Hct 25.8 L MCV 84.6 MCH 29.5 MCHC 34.9 RDW 14.2 Plt Count 27 L D MPV 10.4 Absolute Nucleated RBC 0.000 Nucleated RBC % (auto) 0.0 Neutrophils % (Manual) 54 Band Neutrophils % 6 H Lymphocytes % (Manual) 12 L Atypical Lymphs % (Man) 6 Monocytes % (Manual) 22 H Abs Neuts (Manual) 0.7 L Lymphocytes # (Manual) 0.1 L Atyp Lymphs # (Manual) 0.1 Monocytes # (Manual) 0.3 WBC Morphology Comment DYSMORPHIC Platelet Estimate DECREASED Plt Morphology Comment NORMAL RBC Morphology NOTED Microcytosis 1+ (5-14) University Cells 1+ (0-2) Sodium 133 L Potassium 4.7 Chloride 104 Carbon Dioxide 24 Anion Gap 10 L BUN 20 H Creatinine 0.89 Estim Creat Clear Calc 42.3 Estimated GFR > 60 Random Glucose 219 H Calcium 8.3 L D Random Vancomycin 12.0 L Blood Type O Positive Antibody Screen NEGATIVE Microbiology Microbiology Results: Microbiology 07/20/23 18:35 Blood - Central Line Blood Culture - Preliminary Coag negative Staphylococcus 07/20/23 18:35 Blood - Venous Blood Culture - Preliminary No growth after 24 hours. 07/19/23 08:40 Blood - Venous Blood Culture - Preliminary No growth after 48 hours. 07/19/23 08:07 Blood - Venous Blood Culture - Preliminary No growth after 48 hours. Physical Exam 2 Vital Signs: Vital Signs: Last Vital Signs Temp 97.7 F 07/22/23 12:16 Pulse 95 07/22/23 12:16 Resp 18 07/22/23 12:16 BP 113/51 L 07/22/23 12:16 Pulse Ox 94 07/22/23 11:40 O2 Del Method Room Air 07/22/23 11:40 O2 Flow Rate 94 07/21/23 23:21 Oxygen Flow Rate 4 07/19/23 19:40 BMI result Body Mass Index 18.0 Const: General: cooperative HEENT: Head: Yes normal to inspection Face and sinus: Yes normal facial exam Mouth: Normal oral and palatal mucosa present Teeth and gingiva: d entition normal Eyes: General: appearance normal, both eyes and all related structures P upils: Equal, round and reactive pupils present Resp: Effort & Inspection: normal respiratory effort Cardio: Rate: regular rate Rhythm: regular rhythm GI: Palpation (GI): Soft to palpation and nontender : General: Yes no CVA tenderness Back/Spine/Pelvis: Back: no CVA tenderness Skin: General skin exam: no rashes or lesions noted Neuro: General: moves all extremities Cranial nerves: Yes Equal, round and reactive pupils present Extrem: General: Yes normal to inspection Psych: Appearance: grossly normal Assessment and Plan Assessment and plan (1) Gram-positive bacteremia: Problem details: She has RLL pneumonia This is probably still slowly improving viral. Would check nares MRSA and stop Vancomycin if negative. Would stop Caspofungin if unremarkable fungal testing. Continue Cefepime likely seven days. Status: Acute (2) Parainfluenza: Status: Acute Time Spent With Patient Time: Total time managing care of this patient today ____ minutes.
[2023-07-22] MEDS: vancomycin HCL 1,000 MG in 0.9 % Sodium Chloride 250 ML 270 MG IV (16:22)
[2023-07-22] MEDS: Caspofungin Acetate 50 MG in 0.9 % Sodium Chloride 250 ML 250 MG IV (18:09)
[2023-07-22] MEDS: traZODone HCL 100 MG TABLET PO (21:35)
[2023-07-23] VITALS (9 sets, daily range): BP systolic 109–144; BP diastolic 53–64; PULSE 72–118; RESP 18; TEMP 36.1–37.1; O2SAT 93–96
[2023-07-23] MEDS: methylPREDNISolone Sod Succ 40 MG/ML VIAL IVPUSH ×2 (03:55→16:23)
--- NOTE | 2023-07-23 05:38 | PM.EVENT ---
Event Note Date of Service: 07/23/23 Event Note: On July 19 - Patient was noted to have bleeding from the left ear canal. She had some interventions done (please see event note from 07/20/23). A Surgicel was left inside the ear to control bleeding. Plan was to remove in 4-6hr, but unfortunately, there was a strong concern that patient develops bleeding again if remove prematurely. 5:00 AM - Left ear exam: Surgicel was removed easily. Patient did not report pain or discomfort. Insignificant oozing of fresh blood noted in external ear canal. Tympanic membrane is Not intact, ruptured?. Patient was advised to avoid using her hearing aids to the affected ear (left) and will need follow up with ENT. Time Spent With Patient Time: Total time managing care of this patient today ____ minutes.
[2023-07-23] MEDS: Levothyroxine Sodium 125 MCG TABLET PO (05:46)
[2023-07-23 07:25] LABS: Baso%MD 0.7 %; Hematocrit 27.3 % (37.0-47.0); Hemoglobin 9.4 g/dl (12.0-16.0); IG%MD 0.7 %; Lymph%MD 31.4 %; Mean Corpuscular HGB Conc 34.4 g/dl (31.0-35.0); Mean Corpuscular Hemoglobin 29.4 pg (27.0-33.0); Mean Corpuscular Volume 85.3 fL (80.0-98.0); Mean Platelet Volume 11.1 fL (9.4-12.3); Mono%MD 32.1 %; Neut%MD 35.1 %
[2023-07-23 07:26] LABS: Platelet Count 40 X10*3/uL (160-400); WBC ABN SCTR FOR CBC 1; White Blood Count 1.4 X10*3/uL (4.8-10.8)
[2023-07-23 07:52] LABS: Estimated Glomerular Filt Rate > 60
[2023-07-23 07:55] LABS: Anion Gap 13 (12-20); Blood Urea Nitrogen 26 mg/dL (9-16); Calcium 8.1 mg/dL (8.4-10.2); Carbon Dioxide 21 mmol/L (22-29); Chloride 106 mmol/L (96-108); Creatinine Clr Calc Pharmacy 47.1; Estimated Glomerular Filt Rate > 60; Glucose Random 203 mg/dL (60-115); Potassium 4.4 mmol/L (3.3-5.1); Sodium 136 mmol/L (135-145)
[2023-07-23 08:51] LABS: Atypical Lymph Absolute Manual 0.1 x10*3/uL; Atypical Lymphs Percent Manual 6 % (0-6); Band Neutrophils Percent 4 % (3-5); Basophils Percent Manual 1 % (0-2); Blast Percent 4 %; Blastocytes Absolute 0.1 X10*3/uL; Lymphocytes Absolute Manual 0.3 X10*3/uL (1.2-4.9); Lymphocytes Percent Manual 19 % (20-40); Metamyelocytes Percent 3 %; Monocytes Absolute Manual 0.3 X10*3/uL (0.1-1.2); Monocytes Percent Manual 20 % (2-11); Myelocytes Percent 1 %; Neutrophils Absolute Manual 0.6 X10*3/uL (2.0-8.3); Neutrophils Percent Manual 41 % (45-73); Promyelocytes Percent 1 %
[2023-07-23 08:53] LABS: Burr Cells 2+ (3-5) /OIF; Platelet Estimate DECREASED (NORMAL); Platelet Morphology Comment NORMAL; RBC Morphology NOTED; Schistocytes 1+ (0-2) /OIF
[2023-07-23 08:59] LABS: MRSA Nasal PCR NEGATIVE (Negative); SA Nasal PCR NEGATIVE (Negative)
[2023-07-23] MEDS: Cyanocobalamin (Vitamin B-12) 1,000 MCG TABLET 1000 MCG PO (09:08)
[2023-07-23] MEDS: Acyclovir 200 MG CAPSULE 400 MG PO ×2 (09:09→21:16)
[2023-07-23] MEDS: Loratadine 10 MG TABLET PO (09:09)
[2023-07-23] MEDS: Potassium Chloride ER 20 MEQ TAB.ER.PRT PO (09:09)
[2023-07-23] MEDS: cefEPime HCl 2 GM in 0.9 % Sodium Chloride 50 ML IV (09:10)
[2023-07-23] MEDS: 0.9 % Sodium Chloride Flush 3 ML SYRINGE IVFLUSH ×3 (09:10→21:16)
[2023-07-23 14:40] LABS: Vancomycin Random 13.4 mcg/mL (15-20)
--- NOTE | 2023-07-23 14:51 | HE.PHANOTE ---
RE: VANCO DOSING Random came back as 13.4. Continue with dose of 1000 mg q24h, next random is scheduled for 07/24/23 @1400.
[2023-07-23] MEDS: Albuterol/Iprat 2.5/0.5MG 3 ML AMPUL.NEB INHALE ×2 (15:31→19:23)
--- NOTE | 2023-07-23 15:44 | HO.PM.IMPN ---
Subjective Subjective Date of Service: 07/24/23 Interval History: Being followed for neutropenic fever. Offers no acute complaints , denies fever, no chills, no abdominal pain, no diarrhea, no urinary symptoms of urgency frequency, no rash, no cough or shortness of breath. Review of Systems All other system reviewed and negative. Physical Exam Vital Signs: Vital Signs: Last Vital Signs Temp 97.1 F 07/23/23 15:09 Pulse 100 07/23/23 15:32 Resp 18 07/23/23 15:32 BP 130/60 07/23/23 15:09 Pulse Ox 95 07/23/23 15:09 O2 Del Method Room Air 07/23/23 15:09 O2 Flow Rate 94 07/21/23 23:21 Oxygen Flow Rate 4 07/19/23 19:40 BMI result Body Mass Index 18.0 Const: Other: Gen: Awake alert x3, in no acute distress HEENT: sclera anicteric, moist mucus membranes, pale Neck: supple Lungs: Clear to auscultation, no wheeze, no crackles Heart: regular, tachycardic, no murmurs Abd: soft, non-tender, non-distended Ext: no edema Skin: warm/well-perfused, right chest port in place without redness or swelling. Neuro: alert and oriented x3, no focal findings Psych: appropriate affect Objective Data Active Medications Acetaminophen (Acetaminophen 325 Mg Tablet) 650 mg PO Q6H PRN PRN Reason: Pain, Mild (Pain Scale 1-3) Last Admin: 07/20/23 15:37 Dose: 650 mg Documented By: CAYDEN Acyclovir (Acyclovir 200 Mg Capsule) 400 mg PO BID [facility] Last Admin: 07/23/23 09:09 Dose: 400 mg Documented By: KAYCE Albuterol Sulfate (Albuterol Sulfate (0.083%) 2.5 Mg/3 Ml Vial.Neb) 2.5 mg INHALE Q2H PRN PRN Reason: Shortness of Breath/Wheezing Albuterol/Ipratropium (Albuterol/Iprat 2.5/0.5mg 3 Ml Ampul.Neb) 3 ml INHALE RQ4H WHILE AWAKE [facility] Last Admin: 07/23/23 15:31 Dose: 3 ml Documented By: JOSEPH Cyanocobalamin (Cyanocobalamin (Vitamin B-12) 1,000 Mcg Tablet) 1,000 mcg PO DAILY [facility] Last Admin: 07/23/23 09:08 Dose: 1,000 mcg Documented By: KAYCE Cefepime HCl 2 gm/ Sodium (Chloride) 50 mls @ 100 mls/hr IV Q12H [facility] Last Infusion: 07/23/23 10:02 Dose: Infused Documented By: KAYCE Vancomycin HCl 1,000 mg/ (Sodium Chloride) 270 mls @ 270 mls/hr IV Q24H [facility] Last Infusion: 07/22/23 17:58 Dose: Infused Documented By: KURT Levothyroxine Sodium (Levothyroxine Sodium 125 Mcg Tablet) 125 mcg PO DAILY@0600 [facility] Last Admin: 07/23/23 05:46 Dose: 125 mcg Documented By: BRIDGER Loratadine (Loratadine 10 Mg Tablet) 10 mg PO DAILY [facility] Last Admin: 07/23/23 09:09 Dose: 10 mg Documented By: KAYCE Lorazepam (Lorazepam 0.5 Mg Tablet) 0.5 mg PO DAILY PRN PRN Reason: anxiety Magnesium Hydroxide (Milk Of Magnesia 30 Ml Oral.Susp) 30 ml PO DAILY PRN PRN Reason: Constipation Methylprednisolone Sodium Succinate (Methylprednisolone Sod Succ 40 Mg/Ml Vial) 40 mg IVPUSH Q12H [facility] Last Admin: 07/23/23 03:55 Dose: 40 mg Documented By: BRIDGER Ondansetron HCl (Ondansetron Hcl 4 Mg/2 Ml Vial) 4 mg IVPUSH Q8H PRN PRN Reason: Nausea and Vomiting Pharmacy Consult (Consult Rx Vancomycin Dosing) 1 each MISCELLANE DAILY PRN PRN Reason: Consult order Potassium Chloride (Potassium Chloride Er 20 Meq Tab.Er.Prt) 20 meq PO DAILY [facility] Last Admin: 07/23/23 09:09 Dose: 20 meq Documented By: KAYCE Sodium Chloride (0.9 % Sodium Chloride Flush 3 Ml Syringe) 3 ml IVFLUSH QSHIFT [facility] Last Admin: 07/23/23 09:10 Dose: 3 ml Documented By: KAYCE Trazodone HCl (Trazodone Hcl 100 Mg Tablet) 100 mg PO BEDTIME [facility] Last Admin: 07/22/23 21:35 Dose: 100 mg Documented By: BRIDGER Labs 07/24/23 05:48 07/24/23 05:48 Labs: Laboratory Results - last 24 hr 07/23/23 07/23/23 07/23/23 05:51 05:52 05:53 MCV 85.3 Cancelled MCH 29.4 Cancelled MCHC 34.4 Cancelled RDW 14.0 Cancelled Plt Count 40 L D Cancelled MPV 11.1 Cancelled Immature Gran % (Auto) Cancelled Neut % (Auto) Cancelled Lymph % (Auto) Cancelled [place] % (Auto) Cancelled Eos % (Auto) Cancelled Baso % (Auto) Cancelled Lymph # (Auto) Cancelled [place] # (Auto) Cancelled Eos # (Auto) Cancelled Baso # (Auto) Cancelled Abs Immat Gran (auto) Cancelled Absolute Neuts (auto) Cancelled Absolute Nucleated RBC 0.000 Cancelled Nucleated RBC % (auto) 0.0 Cancelled Neutrophils % (Manual) 41 L Band Neutrophils % 4 Lymphocytes % (Manual) 19 L Atypical Lymphs % (Man) 6 Monocytes % (Manual) 20 H Basophils % (Manual) 1 Metamyelocytes % 3 Myelocytes % 1 Promyelocytes % 1 Blast Cells % (Manual) 4 Abs Neuts (Manual) 0.6 L Lymphocytes # (Manual) 0.3 L Atyp Lymphs # (Manual) 0.1 Monocytes # (Manual) 0.3 Blast Cells # 0.1 Platelet Estimate DECREASED Plt Morphology Comment NORMAL RBC Morphology NOTED [place] Cells 2+ (3-5) Schistocytes 1+ (0-2) Anion Gap 13 Estim Creat Clear Calc 47.1 46.0 Estimated GFR > 60 > 60 Random Glucose 203 H Calcium 8.1 L Nasal Screen MRSA (PCR) Nasal S. aureus Screen Nasal MRSA/S.aureus Interp Random Vancomycin 07/23/23 07/23/23 07:00 14:08 MCV MCH MCHC RDW Plt Count MPV Immature Gran % (Auto) Neut % (Auto) Lymph % (Auto) [place] % (Auto) Eos % (Auto) Baso % (Auto) Lymph # (Auto) [place] # (Auto) Eos # (Auto) Baso # (Auto) Abs Immat Gran (auto) Absolute Neuts (auto) Absolute Nucleated RBC Nucleated RBC % (auto) Neutrophils % (Manual) Band Neutrophils % Lymphocytes % (Manual) Atypical Lymphs % (Man) Monocytes % (Manual) Basophils % (Manual) Metamyelocytes % Myelocytes % Promyelocytes % Blast Cells % (Manual) Abs Neuts (Manual) Lymphocytes # (Manual) Atyp Lymphs # (Manual) Monocytes # (Manual) Blast Cells # Platelet Estimate Plt Morphology Comment RBC Morphology [place] Cells Schistocytes Anion Gap Estim Creat Clear Calc Estimated GFR Random Glucose Calcium Nasal Screen MRSA (PCR) NEGATIVE Nasal S. aureus Screen NEGATIVE Nasal MRSA/S.aureus Interp SEE NOTE Random Vancomycin 13.4 L Microbiology Microbiology Results: Microbiology 07/22/23 10:05 Blood Culture - Preliminary Blood - Venous No growth after 24 hours. 07/22/23 10:00 Blood Culture - Preliminary Blood - Venous No growth after 24 hours. 07/20/23 18:35 Blood Culture - Final Blood - Central Line Staphylococcus hominis ssp pk 07/20/23 18:35 Blood Culture - Preliminary Blood - Venous No growth after 48 hours. 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 febrile neutropenia with gram positive bacteremia -atypical pneumonia -parainfluenza infection with bacterial superinfection -blood cultures 1/2 positive for Staphylococcus hominis sensitive only to vancomycin ,Repeat blood culture showed no growth times 24 hours, procalcitonin 6.81 echo showed EF 45-50%, small density 0.7-0.6 cm on the atrial side of tricuspid valve possible thrombus or vegetation, mild global hypokinesis and normal diastolic function for age mrsa nares negative, aspergillus antigen and beta 1 3 D glucan pending. -on iv vancomycin + cefepime 07/18-, caspofungin 07/20 - -being followed by Dr. Juarez WBC improved to 1.4, will hold Granix -continue acyclovir prophylaxis -cont. neutropenic + droplet precations, follow CBC and procalcitonin -will consult cardiology for possible tricuspid vegetation, will discuss with ID regarding antibiotics thrombocytopenia - transfused 2u platelets, platelet count 40,000, no active bleed noted hypoproliferative anemia - transfused 2u pRBCs , hct improved , follow CBC COPD - continue nebulizer treatments hypothyroidism - continue LT4 mood disorder - trazodone, lorazepam malnutrition - continue supplements - bleeding from left ear canal stopped, Surgicel removed, will recommend outpatient ENT follow-up for possible rupture of tympanic membrane. VTE ppx - SCDs dispo - eventual home In my clinical judgment, the patient requires continued inpatient hospitalization for the following reasons: IV ABX for bacteremia, and expert consultation for possible endocarditis. Quality Stroke Does the patient have a stroke diagnosis?: No VTE Prior VTE?: No VTE Risk Level:: Medical - moderate - high VTE Device Contraindication: N/A - Device Ordered VTE Drug Contraindication: Treatment Not Indicated
[2023-07-23] MEDS: vancomycin HCL 1,000 MG in 0.9 % Sodium Chloride 250 ML 270 MG IV (16:24)
[2023-07-23] MEDS: cefTRIAXone sodium 2 GM in 0.9 % Sodium Chloride 50 ML IV (17:06)
[2023-07-23] MEDS: Doxycycline Hyclate 100 MG in 0.9 % Sodium Chloride 250 ML 166.67 MG IV (18:12)
[2023-07-23] MEDS: traZODone HCL 100 MG TABLET PO (21:16)
[2023-07-23] MEDS: Caspofungin Acetate 50 MG in 0.9 % Sodium Chloride 250 ML 250 MG IV (21:16)
[2023-07-23 23:53] LABS: Strep Pneumo Ag urine Not Detected (Not Detected)
[2023-07-24] VITALS (8 sets, daily range): BP systolic 113–132; BP diastolic 55–60; PULSE 81–113; RESP 18–22; TEMP 36.6–37.7; O2SAT 93–96
[2023-07-24] MEDS: methylPREDNISolone Sod Succ 40 MG/ML VIAL IVPUSH (04:23)
[2023-07-24] MEDS: Levothyroxine Sodium 125 MCG TABLET PO (06:00)
[2023-07-24 06:44] LABS: Creatinine Clr Calc Pharmacy 42.8; Estimated Glomerular Filt Rate > 60
[2023-07-24 07:07] LABS: Hematocrit 24.9 % (37.0-47.0); Hemoglobin 8.7 g/dl (12.0-16.0); IG%MD 0.7 %; Lymph%MD 28.7 %; Mean Corpuscular HGB Conc 34.9 g/dl (31.0-35.0); Mean Corpuscular Hemoglobin 30.1 pg (27.0-33.0); Mean Corpuscular Volume 86.2 fL (80.0-98.0); Mean Platelet Volume 11.8 fL (9.4-12.3); Mono%MD 45.5 %; Neut%MD 25.1 %; PLT CLUMP 1; Red Blood Count 2.89 X10*6/uL (4.20-5.50); Red Cell Distribution Width 14.1 % (11.0-16.0); WBC ABN SCTR FOR CBC 1
[2023-07-24] MEDS: Doxycycline Hyclate 100 MG in 0.9 % Sodium Chloride 250 ML 166.67 MG IV ×2 (07:25→18:25)
[2023-07-24] MEDS: 0.9 % Sodium Chloride Flush 3 ML SYRINGE IVFLUSH ×2 (07:25→16:26)
[2023-07-24] MEDS: Albuterol/Iprat 2.5/0.5MG 3 ML AMPUL.NEB INHALE ×3 (07:48→19:41)
[2023-07-24 07:58] LABS: Band Neutrophils Percent 3 % (3-5); Basophils Percent Manual 2 % (0-2); Blast Percent 8 %; Lymphocytes Percent Manual 20 % (20-40); Metamyelocytes Percent 1 %; Monocytes Percent Manual 23 % (2-11); Neutrophils Percent Manual 42 % (45-73); Nucleated Red Blood Cells 2 /100WBC (0-0); Promyelocytes Percent 1 %
[2023-07-24 07:59] LABS: Large Platelet PRESENT; Platelet Estimate DECREASED (NORMAL); Platelet Morphology Comment NOTED; RBC Morphology NOTED
[2023-07-24 08:00] LABS: Blastocytes Absolute 0.1 X10*3/uL; Lymphocytes Absolute Manual 0.3 X10*3/uL (1.2-4.9); Monocytes Absolute Manual 0.3 X10*3/uL (0.1-1.2); Neutrophils Absolute Manual 0.6 X10*3/uL (2.0-8.3); Ovalocytes 1+ (5-14) /OIF; Platelet Count 23 X10*3/uL (160-400); White Blood Count 1.4 X10*3/uL (4.8-10.8)
[2023-07-24] MEDS: Potassium Chloride ER 20 MEQ TAB.ER.PRT PO (08:19)
[2023-07-24] MEDS: Loratadine 10 MG TABLET PO (08:19)
[2023-07-24] MEDS: Cyanocobalamin (Vitamin B-12) 1,000 MCG TABLET 1000 MCG PO (08:19)
[2023-07-24] MEDS: Acyclovir 200 MG CAPSULE 400 MG PO ×2 (08:19→20:41)
--- NOTE | 2023-07-24 11:13 | P.CONCA_ITS ---
History of Present Illness History of Present Illness Date of Service: 07/24/23 Chief complaint: neutropenic fever parainfluenza Narrative: This is a cardiology consultation regarding an abnormal echocardiogram with a question of vegetation. 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 In this context, parainfluenza was positive. She also has pancytopenia. Echocardiogram was performed and there was a question of small vegetation versus thrombus on the atrial side of tricuspid valve. Patient herself does not have any prior history of endocarditis according to her. No other known cardiac issues. She states she feels okay. Looks weak. Review of Systems 2 Review of Systems: Yes all other systems are reviewed and are negative Constitutional: Constitutional: Reports as per HPI and Reports no additional constitutional complaints Eyes: Eyes: Reports as per HPI and Denies no additional eye complaints ENT: Denies system reviewed and no additional complaints, except as documented and Reports as per HPI Cardiovascular: Cardiovascular: Reports as per HPI, Reports no additional cardiovascular complaints, Denies acrocyanosis, Denies cool extremities, Denies chest pain, Denies leg edema, Denies lightheadedness, Denies palpitations and Denies dyspnea Respiratory: Respiratory: Reports as per HPI, Denies no additional respiratory complaints and Denies dyspnea Gastrointestinal: Gastrointestinal: Reports as per HPI and Denies no additional gastrointestinal complaints Genitourinary: Genitourinary: Reports as per HPI Musculoskeletal: Musculoskeletal: Reports no additional musculoskeletal complaints and Reports as per HPI Integumentary/Breasts: Skin/Breast: Reports system reviewed and no additional complaints, except as docu Neurologic: Reports system reviewed and no additional complaints, except as documented and Reports as per HPI Psychiatric: Psychiatric: Reports no additional psychiatric complaints and Reports as per HPI Endocrine: Endocrine: Reports no additional endocrine complaints, Reports as per HPI and Denies palpitations Hematologic/Lymphatic: Hematologic/Lymphatic: Reports no additional hematologic/lymphatic complaints and Reports as per HPI Allergic/Immunologic: Allergic/Immunologic: Reports no additional allergic/immunologic complaints and Reports as per HPI PMF Past Medical History Medical History Tobacco dependence Dyspnea COPD (chronic obstructive pulmonary disease) Anemia COPD with asthma Anxiety Depression Non-Hodgkin lymphoma in remission Hypothyroidism Family History Family History Father CAD (coronary artery disease) Surgical History Surgical History S/P angiogram of extremity (02/13/20) History of salpingo-oophorectomy H/O: hysterectomy Social History Social History Household Members: None Housing: House Do you presently have visiting nurse or other home services: No Alcohol intake: never Patient Tobacco Use Status: Current everyday Tobacco user Tobacco use type: Cigar Cigarette Packs Per Day: 1 Years Smoked: 40 Second Hand Smoke Exposure: No Advance Directives Date on File: 07/16/21 service: No Current occupational status: retired Meds Allergies Allergy/AdvReac Type Severity Reaction Status Date / Time adhesive tape Allergy Unknown RASH Verified 07/19/23 07:24 bacitracin [Bacitracin] Allergy Unknown RASH Verified 07/19/23 07:24 Active Medications: Current Medications Acetaminophen (Acetaminophen 325 Mg Tablet) 650 mg PO Q6H PRN PRN Reason: Pain, Mild (Pain Scale 1-3) Last Admin: 07/20/23 15:37 Dose: 650 mg Acyclovir (Acyclovir 200 Mg Capsule) 400 mg PO BID [facility] Last Admin: 07/24/23 08:19 Dose: 400 mg Albuterol Sulfate (Albuterol Sulfate (0.083%) 2.5 Mg/3 Ml Vial.Neb) 2.5 mg INHALE Q2H PRN PRN Reason: Shortness of Breath/Wheezing Albuterol/Ipratropium (Albuterol/Iprat 2.5/0.5mg 3 Ml Ampul.Neb) 3 ml INHALE RQ4H WHILE AWAKE [facility] Last Admin: 07/24/23 11:13 Dose: Not Given Cyanocobalamin (Cyanocobalamin (Vitamin B-12) 1,000 Mcg Tablet) 1,000 mcg PO DAILY [facility] Last Admin: 07/24/23 08:19 Dose: 1,000 mcg Caspofungin 50 mg/ Sodium (Chloride) 250 mls @ 250 mls/hr IV Q24H [facility] Last Infusion: 07/23/23 22:16 Dose: Infused Doxycycline Hyclate 100 mg/ (Sodium Chloride) 250 mls @ 166.67 mls/hr IV Q12H [facility] Last Infusion: 07/24/23 09:08 Dose: Infused Ceftriaxone Sodium 2 gm/ (Sodium Chloride) 50 mls @ 100 mls/hr IV Q24H [facility] Last Infusion: 07/23/23 17:55 Dose: Infused Levothyroxine Sodium (Levothyroxine Sodium 125 Mcg Tablet) 125 mcg PO DAILY@0600 [facility] Last Admin: 07/24/23 06:00 Dose: 125 mcg Loratadine (Loratadine 10 Mg Tablet) 10 mg PO DAILY [facility] Last Admin: 07/24/23 08:19 Dose: 10 mg Lorazepam (Lorazepam 0.5 Mg Tablet) 0.5 mg PO DAILY PRN PRN Reason: anxiety Magnesium Hydroxide (Milk Of Magnesia 30 Ml Oral.Susp) 30 ml PO DAILY PRN PRN Reason: Constipation Ondansetron HCl (Ondansetron Hcl 4 Mg/2 Ml Vial) 4 mg IVPUSH Q8H PRN PRN Reason: Nausea and Vomiting Potassium Chloride (Potassium Chloride Er 20 Meq Tab.Er.Prt) 20 meq PO DAILY [facility] Last Admin: 07/24/23 08:19 Dose: 20 meq Sodium Chloride (0.9 % Sodium Chloride Flush 3 Ml Syringe) 3 ml IVFLUSH QSHIFT [facility] Last Admin: 07/24/23 07:25 Dose: 3 ml Trazodone HCl (Trazodone Hcl 100 Mg Tablet) 100 mg PO BEDTIME [facility] Last Admin: 07/23/23 21:16 Dose: 100 mg Home Medications ?Medication ?Instructions ?Recorded ?Confirmed ?Last Taken ?Type acyclovir 400 mg tablet 400 mg PO BID 01/31/20 07/19/23 07/09/23 History levothyroxine 125 mcg tablet 125 mcg PO DAILY@0600 01/31/20 07/19/23 07/09/23 History trazodone 100 mg tablet 100 mg PO BEDTIME 01/31/20 07/19/23 07/08/23 History lorazepam 0.5 mg tablet 0.5 mg PO DAILY PRN anxiety 03/01/22 07/19/23 02/02/23 History cyanocobalamin (vitamin B-12) 1,000 mcg PO DAILY 02/02/23 07/19/23 07/09/23 History 1,000 mcg tablet potassium chloride 20 mEq 20 meq PO DAILY 12/07/19/23 07/09/23 History tablet,extended release fexofenadine 180 mg tablet 180 mg PO DAILY 07/10/23 07/19/23 07/09/23 History (Nahed Allergy) Physical Exam 2 Vital Signs: Vital Signs: Last Vital Signs Temp 98.8 F 07/24/23 11:02 Pulse 81 07/24/23 11:02 Resp 18 07/24/23 11:02 BP 132/60 07/24/23 11:02 Pulse Ox 96 07/24/23 11:02 O2 Del Method Room Air 07/24/23 11:02 O2 Flow Rate 94 07/21/23 23:21 Oxygen Flow Rate 4 07/19/23 19:40 BMI result Body Mass Index 18.0 Const: General: comfortable, no acute distress, ill appearing and tired appearing Orientation/consciousness: patient oriented x3 HEENT: Other: Unremarkable Head: Yes normal to inspection Neck: Neck: Yes normal visual inspection Chest: Chest palpation & inspection: normal inspection of the chest Resp: Other: Rare crackles Cardio: Palpation: normal PMI Heart sounds: S1 normal heart sound present, S2 normal heart sound present, no gallops, no murmurs and no rubs GI: Palpation (GI): Soft to palpation Back/Spine/Pelvis: Other: unremarkable Skin: General skin exam: no rashes or lesions noted Neuro: General: patient oriented x3 Extrem: General: Yes normal to inspection Psych: Mental Status: mental status grossly normal Objective Labs and Meds 07/24/23 05:48 07/24/23 05:48 Lab results: Laboratory Results - last 24 hr 07/20/23 07/23/23 07/24/23 10:45 14:08 05:48 WBC 1.4 L RBC 2.89 L Hgb 8.7 L Hct 24.9 L MCV 86.2 MCH 30.1 MCHC 34.9 RDW 14.1 Plt Count 23 L D MPV 11.8 Absolute Nucleated RBC 0.000 Nucleated RBC % (auto) 0.0 Neutrophils % (Manual) 42 L Band Neutrophils % 3 Lymphocytes % (Manual) 20 Monocytes % (Manual) 23 H Basophils % (Manual) 2 Metamyelocytes % 1 Promyelocytes % 1 Blast Cells % (Manual) 8 Abs Neuts (Manual) 0.6 L Lymphocytes # (Manual) 0.3 L Monocytes # (Manual) 0.3 Blast Cells # 0.1 Nucleated RBCs 2 H Platelet Estimate DECREASED Large Platelets PRESENT Plt Morphology Comment NOTED RBC Morphology NOTED Ovalocytes 1+ (5-14) Creatinine 0.88 Estim Creat Clear Calc 42.8 Estimated GFR > 60 Random Vancomycin 13.4 L Ur Strep pneumoniae Ag Not Detected ECG Interpretation: EKG with sinus tachycardia, premature supraventricular ectopy and nonspecific ST-T changes. Assessment and Plan (1) Parainfluenza: Status: Acute (2) Acquired neutropenia: Status: Acute (3) Thrombocytopenia: Status: Acute (4) Fever and neutropenia: Status: Acute (5) Acute myeloid leukemia: Status: Acute Plan Labs show positive for parainfluenza virus. Blood cultures-Staphylococcus hominis in 1 set on 07/19 but negative after that. In the echocardiogram, mildly decreased LVEF at 45-50%. There is a small density on the atrial side of tricuspid valve, measuring 0.7/0.6 cm. This could be an old thrombus related to a port. Less likely infection but possible. May not be acute but could be an old finding. Overall, in this setting where there there is no clear-cut bacteremia and there is also no significant valvular regurgitation or heart failure type symptoms and additionally with thrombocytopenia, would not proceed with PAULA. It will not make any change in management and has significant risks. Discussed with Dr. Browning. Procedures Date of Service Date of Service: 07/24/23
--- NOTE | 2023-07-24 12:15 | P.PNHO-ONC_ITS ---
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 She later relapsed and was treated with chemotherapy to remission followed by stem cell transplant at [facility]. She later relapsed and was treated with CAR-T therapy at [facility] to durable remission which has been durable. Over the last 2 years a macrocytic anemia evolved into AML. Second malignancies are being seen with CAR-T. She recently had remission induction with chemotherapy at [facility] but did not acheive remission. She is receiving palliatiave chemotherapy with decitibine-cedazuridine (Inqovi) at [facility] with Dr. Grayson. Patient was admitted on 07/09/2023 to [facility] because of severe pancytopenia secondary to ongoing chemotherapy for AML. She was referred by Dr. Juarez for admission because her platelet count was down to 5 K. evaluation in the ED also revealed that patient was febrile, she had neutropenia in her platelets were 4 K. Tested negative for a flu, RSV, COVID. CXR showed no acute intrathoracic disease, but showed emphysema. EKG demonstrated sinus tachycardia of 107 with no evidence of significant ST elevations or depressions. Pt was treated with cefepime, acetaminophen, and IVF. Pt will be admitted to the hospital for treatment and further evaluation of neutropenic fever, thrombocytopenia, and anemia in the setting of acute myeloid leukemia. She subsequently tested positive for parainfluenza. On 07/20/2023 she developed spontaneous bleeding from her left ear. I was consulted because of suspicion for DIC. She feels well and has no complaints today. She has no bleeding from her nose or ear. She has not gotten out of bed since she was hospitalized. Review of Systems - Neurologic Reports no additional neurologic complaints, Reports as per HPI, Reports syncope, Reports numbness, Reports other PMFSH Medical History: Medical History (Last Reviewed 07/19/23 @ 13:50 by MARYANN Schroeder) Anemia Anxiety COPD (chronic obstructive pulmonary disease) COPD with asthma Depression Dyspnea Hypothyroidism Non-Hodgkin lymphoma in remission Tobacco dependence Family History: Family History (Last Reviewed 07/19/23 @ 13:50 by MARYANN Schroeder) Father CAD (coronary artery disease) Surgical History: Surgical History (Last Reviewed 07/19/23 @ 13:50 by MARYANN Schroeder) H/O: hysterectomy History of salpingo-oophorectomy S/P angiogram of extremity Onset Date: 02/13/20 Social History: Social History (Last Reviewed 07/19/23 @ 13:50 by MARYANN Schoreder) Living Situation History: Household Members: None Housing: House Do you presently have visiting nurse or other home services: No Tobacco History: Patient Tobacco Use Status: Current everyday Tobacco Tobacco use type: Cigar Cigarette Packs Per Day: 1 Years Smoked: 40 Second Hand Smoke Exposure: No Advance Directives: Advance Directives Date on File: 07/16/21 Occupation Assessmet: service: No Current occupational status: retired Home Medications and Allergies Current Medications: Current Medications Acetaminophen (Acetaminophen 325 Mg Tablet) 650 mg PO Q6H PRN PRN Reason: Pain, Mild (Pain Scale 1-3) Last Admin: 07/20/23 15:37 Dose: 650 mg Acyclovir (Acyclovir 200 Mg Capsule) 400 mg PO BID [facility] Last Admin: 07/24/23 08:19 Dose: 400 mg Albuterol Sulfate (Albuterol Sulfate (0.083%) 2.5 Mg/3 Ml Vial.Neb) 2.5 mg INHALE Q2H PRN PRN Reason: Shortness of Breath/Wheezing Albuterol/Ipratropium (Albuterol/Iprat 2.5/0.5mg 3 Ml Ampul.Neb) 3 ml INHALE RQ4H WHILE AWAKE [facility] Last Admin: 07/24/23 11:13 Dose: Not Given Cyanocobalamin (Cyanocobalamin (Vitamin B-12) 1,000 Mcg Tablet) 1,000 mcg PO DAILY [facility] Last Admin: 07/24/23 08:19 Dose: 1,000 mcg Caspofungin 50 mg/ Sodium (Chloride) 250 mls @ 250 mls/hr IV Q24H [facility] Last Infusion: 07/23/23 22:16 Dose: Infused Doxycycline Hyclate 100 mg/ (Sodium Chloride) 250 mls @ 166.67 mls/hr IV Q12H [facility] Last Infusion: 07/24/23 09:08 Dose: Infused Ceftriaxone Sodium 2 gm/ (Sodium Chloride) 50 mls @ 100 mls/hr IV Q24H [facility] Last Infusion: 07/23/23 17:55 Dose: Infused Levothyroxine Sodium (Levothyroxine Sodium 125 Mcg Tablet) 125 mcg PO DAILY@0600 [facility] Last Admin: 07/24/23 06:00 Dose: 125 mcg Loratadine (Loratadine 10 Mg Tablet) 10 mg PO DAILY [facility] Last Admin: 07/24/23 08:19 Dose: 10 mg Lorazepam (Lorazepam 0.5 Mg Tablet) 0.5 mg PO DAILY PRN PRN Reason: anxiety Magnesium Hydroxide (Milk Of Magnesia 30 Ml Oral.Susp) 30 ml PO DAILY PRN PRN Reason: Constipation Ondansetron HCl (Ondansetron Hcl 4 Mg/2 Ml Vial) 4 mg IVPUSH Q8H PRN PRN Reason: Nausea and Vomiting Potassium Chloride (Potassium Chloride Er 20 Meq Tab.Er.Prt) 20 meq PO DAILY [facility] Last Admin: 07/24/23 08:19 Dose: 20 meq Sodium Chloride (0.9 % Sodium Chloride Flush 3 Ml Syringe) 3 ml IVFLUSH QSHIFT [facility] Last Admin: 07/24/23 07:25 Dose: 3 ml Trazodone HCl (Trazodone Hcl 100 Mg Tablet) 100 mg PO BEDTIME [facility] Last Admin: 07/23/23 21:16 Dose: 100 mg Home Medications ?Medication ?Instructions ?Recorded ?Confirmed ?Type acyclovir 400 mg tablet 400 mg PO BID 01/31/20 07/19/23 History levothyroxine 125 mcg tablet 125 mcg PO DAILY@0600 01/31/20 07/19/23 History trazodone 100 mg tablet 100 mg PO BEDTIME 01/31/20 07/19/23 History lorazepam 0.5 mg tablet 0.5 mg PO DAILY PRN anxiety 03/01/22 07/19/23 History cyanocobalamin (vitamin B-12) 1,000 mcg PO DAILY 02/02/23 07/19/23 History 1,000 mcg tablet potassium chloride 20 mEq 20 meq PO DAILY 02/02/23 07/19/23 History tablet,extended release fexofenadine 180 mg tablet 180 mg PO DAILY 07/10/23 07/19/23 History (Nahed Allergy) Allergies Allergy/AdvReac Type Severity Reaction Status Date / Time adhesive tape Allergy Unknown RASH Verified 05/28/24 07:24 bacitracin [Bacitracin] Allergy Unknown RASH Verified 07/19/23 07:24 Exam Vital signs: Vital Signs Temp 98.8 F 07/24/23 11:02 Pulse 81 07/24/23 11:02 Resp 18 07/24/23 11:02 BP 132/60 07/24/23 11:02 Pulse Ox 96 07/24/23 11:02 O2 Del Method Room Air 07/24/23 11:02 O2 Flow Rate 94 07/21/23 23:21 Intake & Output 07/23/23 07/24/23 07/24/23 18:59 06:59 18:59 Intake Total 572.5 / 1432.5 860 / 1432.5 250 / 250 Output Total 400 / 1200 800 / 1200 Balance 172.5 / 232.5 60 / 232.5 250 / 250 Urine Output (Average ml/kg/hr) 0.70 1.40 1.40 Intake: Intake, Oral Amount 360 / 720 360 / 720 Intake, IV Amount 212.5 / 712.5 500 / 712.5 250 / 250 Caspofungin Acetate 50 mg In 0. 250 / 250 9 % Sodium Chloride 250 ml @ 250 mls/hr IV Q24H [facility] Rx#: [id number] Doxycycline Hyclate 100 mg In 0 250 / 250 250 / 250 .9 % Sodium Chloride 250 ml @ 166.67 mls/hr IV Q12H [facility] Rx#: [id number] cefEPime HCl 2 gm In 0.9 % 50 / 50 Sodium Chloride 50 ml @ 100 mls /hr IV Q12H [facility] Rx#:[id number] cefTRIAXone sodium 2 gm In 0.9 50 / 50 % Sodium Chloride 50 ml @ 100 mls/hr IV Q24H [facility] Rx#: [id number] vancomycin HCL 1,000 mg In 0.9 112.5 / 112.5 % Sodium Chloride 250 ml @ 270 mls/hr IV Q24H [facility] Rx#: [id number] Output: Output, Urine Amount 400 / 1200 800 / 1200 Other: Number of Incontinent Voids 1 Number of Bowel Movements 1 Urine purewick purewick Urine Color Yellow Last Bowel Movement 07/21/23 07/21/23 07/21/23 Stool Incontinent Stool Color Dark Brown Stool Consistency Liquid Weight 47.7 kg BMI result Body Mass Index 18.0 - Constitutional Present: no acute distress, chronically ill appearing, cooperative - Routine HEENT Exam Head: Present: atraumatic, normal inspection, normocephalic - Routine Neck Exam Present: full ROM - Routine Respiratory Exam Absent: accessory muscle use - Routine Cardiovascular Exam Cardiovascular: Present: S1, S2 - Routine Abdominal Exam Present: soft - Routine Extremities Exam Absent: pedal edema - Routine Skin Exam Present: intact - Routine Neurological Exam Present: alert, oriented X3 Data - Labs CBC & Chem 7: 07/25/23 06:40 07/25/23 06:40 - Imaging Radiologist's impression: ITS Impressions Chest X-Ray 07/19/23 08:03 IMPRESSION: No acute abnormality. Head CT 07/19/23 09:29 IMPRESSION: No fracture or intracranial bleed. Chest CT 07/19/23 14:52 IMPRESSION: 1. Interstitial patchy ground-glass opacities right lower lobe, suggesting probably atypical infection, interstitial infiltrate pneumonia. No dense lobar consolidation. 2. Mild delgado lobar pulmonary emphysema. 3. No lung mass or suspicious spiculated nodules, there are few scattered tiny nonspecific lung nodular densities measuring up to 4 mm or less. Fleischner criteria does not apply for oncology patients. Further management and/or follow-up should be determined per oncology. 4. Coronary calcification. 5. Calcified mediastinal and hilar lymph nodes might be an old granulomatous disease. 6. Port-A-Cath embedded in the right chest wall with its tip in the SVC. Abdomen/Pelvis CT 07/20/23 14:20 IMPRESSION: No acute inflammatory findings in the abdomen/pelvis. Bronchiolitis in the lower lobes, right greater than left. Assessment and Plan Patient Active problem list reviewed?: Yes (1) Acute myeloid leukemia Status: Acute Assessment and plan: This is a 73-year-old woman 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 Her past history significant for diffuse large B-cell lymphoma initially diagnosed in 2012 who has been in remission since 2018 after she received car T-cell therapy at [facility]. Since 2021 she has had worsening macrocytic anemia with severe reticulocytopenia. Bone marrow aspiration/biopsy performed 09/20/2022 showed involvement by myeloblasts with background dysplasia. Bone marrow cellularity was 40%, Atypical mononuclear cells are approximately 30% of marrow cellularity, 8% in peripheral blood and 18% by flow cytometry. Consistent with acute myeloid leukemia related to prior therapy. 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 She is currently being treated at [facility] and [facility] for therapy related AML. She is now on decitabine-cedazuridine since May 2023. She is admitted with pancytopenia secondary to ongoing treatment as well as viral infection. She developed an episode of spontaneous bleeding from her left ear a couple of days ago. I reviewed DIC panel with the hospitalist, she has mild elevation of INR with fibrinogen of over 600. A day prior her platelet count was down to 11 K which might be the cause of her bleeding. I did not feel she had DIC. She responded to platelet transfusion, she no longer has any spontaneous bleeding. She is on Granix, her ANC is improving. At this time she is responding to supportive measures and IV antibiotics.-blood cultures 1/2 positive for Staphylococcus hominis sensitive only to vancomycin ,Repeat blood culture showed no growth times 48 hours. echo showed EF 45-50%, small density 0.7-0.6 cm on the atrial side of tricuspid valve possible thrombus or vegetation, mild global hypokinesis and normal diastolic function for age mrsa nares negative, aspergillus antigen and beta 1 3 D glucan pending. -s/p iv vancomycin + cefepime 07/18- 07/22, caspofungin 07/20 -continue acyclovir prophylaxis Case discussed with ID, she recommended to check Bartonella PCR blood test, and to discontinue vancomycin and cefepime, and rec, iv doxycycline and ceftriaxone started on July 22 to cover Bartonella infection In regard to small density on the atrial side of tricuspid valve measuring 0.7/0.6 cm patient was evaluated by laborer laboratory, Dr. Ball he felt that likely it is an old thrombus related to port, less likely infection but can not rule out but since blood cultures are negative, with no significant valvular regurgitation, or heart failure, with thrombocytopenia, he recommend not to proceed with PAULA due to significant risk, and since it will not make any change in management I recommend platelet transfusion if they fall below 20 K. - Time Spent With Patient Time Spent with Patient (in minutes): 10
[2023-07-24 12:18] LABS: Fungitell <31 pg/mL (<60); Fungitell 1,3 beta glucan Negative
--- NOTE | 2023-07-24 12:55 | P.PNIM_ITS ---
Subjective Subjective Date of Service: 07/24/23 Interval History: Being followed for neutropenic fever, patient awake alert offers no acute complaints of pain, no fevers, no chills, no nausea no vomiting no abdominal pain no diarrhea, denies shortness of breath, no cough no chest pain or palpitations no acute issues overnight. Denies recurrent episode of left ear bleed. Review of Systems All other system reviewed and negative. Physical Exam 2 Vital Signs: Vital Signs: Last Vital Signs Temp 98.8 F 07/24/23 11:02 Pulse 81 07/24/23 11:02 Resp 18 07/24/23 11:02 BP 132/60 07/24/23 11:02 Pulse Ox 96 07/24/23 11:02 O2 Del Method Room Air 07/24/23 11:02 O2 Flow Rate 94 07/21/23 23:21 Oxygen Flow Rate 4 07/19/23 19:40 BMI result Body Mass Index 18.0 Const: Other: Gen: Awake alert x3, in no acute distress HEENT: sclera anicteric, moist mucus membranes, pale Neck: supple Lungs: Clear to auscultation, no wheeze, no crackles Heart: regular, no murmurs Abd: soft, non-tender, non-distended Ext: no edema Skin: warm/well-perfused, right chest port in place without redness or swelling. Neuro: alert and oriented x3, no focal findings Psych: appropriate affect Objective Data Active Medications Acetaminophen (Acetaminophen 325 Mg Tablet) 650 mg PO Q6H PRN PRN Reason: Pain, Mild (Pain Scale 1-3) Last Admin: 07/20/23 15:37 Dose: 650 mg Documented By: CAYDEN Acyclovir (Acyclovir 200 Mg Capsule) 400 mg PO BID [facility] Last Admin: 07/24/23 08:19 Dose: 400 mg Documented By: KAYCE Albuterol Sulfate (Albuterol Sulfate (0.083%) 2.5 Mg/3 Ml Vial.Neb) 2.5 mg INHALE Q2H PRN PRN Reason: Shortness of Breath/Wheezing Albuterol/Ipratropium (Albuterol/Iprat 2.5/0.5mg 3 Ml Ampul.Neb) 3 ml INHALE RQ4H WHILE AWAKE [facility] Last Admin: 07/24/23 11:13 Dose: Not Given Documented By: SHARYN Non-Admin Reason: Patient Refused Cyanocobalamin (Cyanocobalamin (Vitamin B-12) 1,000 Mcg Tablet) 1,000 mcg PO DAILY [facility] Last Admin: 07/24/23 08:19 Dose: 1,000 mcg Documented By: KAYCE Caspofungin 50 mg/ Sodium (Chloride) 250 mls @ 250 mls/hr IV Q24H [facility] Last Infusion: 07/23/23 22:16 Dose: Infused Documented By: BRIDGER Doxycycline Hyclate 100 mg/ (Sodium Chloride) 250 mls @ 166.67 mls/hr IV Q12H [facility] Last Infusion: 07/24/23 09:08 Dose: Infused Documented By: KAYCE Ceftriaxone Sodium 2 gm/ (Sodium Chloride) 50 mls @ 100 mls/hr IV Q24H [facility] Last Infusion: 07/23/23 17:55 Dose: Infused Documented By: KAYCE Levothyroxine Sodium (Levothyroxine Sodium 125 Mcg Tablet) 125 mcg PO DAILY@0600 [facility] Last Admin: 07/24/23 06:00 Dose: 125 mcg Documented By: BRIDGER Loratadine (Loratadine 10 Mg Tablet) 10 mg PO DAILY [facility] Last Admin: 07/24/23 08:19 Dose: 10 mg Documented By: KAYCE Lorazepam (Lorazepam 0.5 Mg Tablet) 0.5 mg PO DAILY PRN PRN Reason: anxiety Magnesium Hydroxide (Milk Of Magnesia 30 Ml Oral.Susp) 30 ml PO DAILY PRN PRN Reason: Constipation Ondansetron HCl (Ondansetron Hcl 4 Mg/2 Ml Vial) 4 mg IVPUSH Q8H PRN PRN Reason: Nausea and Vomiting Potassium Chloride (Potassium Chloride Er 20 Meq Tab.Er.Prt) 20 meq PO DAILY [facility] Last Admin: 07/24/23 08:19 Dose: 20 meq Documented By: KAYCE Sodium Chloride (0.9 % Sodium Chloride Flush 3 Ml Syringe) 3 ml IVFLUSH QSHIFT [facility] Last Admin: 07/24/23 07:25 Dose: 3 ml Documented By: KAYCE Trazodone HCl (Trazodone Hcl 100 Mg Tablet) 100 mg PO BEDTIME [facility] Last Admin: 07/23/23 21:16 Dose: 100 mg Documented By: BRIDGER Labs 07/24/23 05:48 07/24/23 05:48 Labs: Laboratory Results - last 24 hr 07/20/23 07/20/23 07/23/23 10:45 18:35 14:08 MCV MCH MCHC RDW Plt Count MPV Absolute Nucleated RBC Nucleated RBC % (auto) Neutrophils % (Manual) Band Neutrophils % Lymphocytes % (Manual) Monocytes % (Manual) Basophils % (Manual) Metamyelocytes % Promyelocytes % Blast Cells % (Manual) Abs Neuts (Manual) Lymphocytes # (Manual) Monocytes # (Manual) Blast Cells # Nucleated RBCs Platelet Estimate Large Platelets Plt Morphology Comment RBC Morphology Ovalocytes Estim Creat Clear Calc Estimated GFR Random Vancomycin 13.4 L Ur Strep pneumoniae Ag Not Detected Beta-(1,3)-D-Glucan <31 B-(1,3)-D-Glucan Intrp Negative 07/24/23 05:48 MCV 86.2 MCH 30.1 MCHC 34.9 RDW 14.1 Plt Count 23 L D MPV 11.8 Absolute Nucleated RBC 0.000 Nucleated RBC % (auto) 0.0 Neutrophils % (Manual) 42 L Band Neutrophils % 3 Lymphocytes % (Manual) 20 Monocytes % (Manual) 23 H Basophils % (Manual) 2 Metamyelocytes % 1 Promyelocytes % 1 Blast Cells % (Manual) 8 Abs Neuts (Manual) 0.6 L Lymphocytes # (Manual) 0.3 L Monocytes # (Manual) 0.3 Blast Cells # 0.1 Nucleated RBCs 2 H Platelet Estimate DECREASED Large Platelets PRESENT Plt Morphology Comment NOTED RBC Morphology NOTED Ovalocytes 1+ (5-14) Estim Creat Clear Calc 42.8 Estimated GFR > 60 Random Vancomycin Ur Strep pneumoniae Ag Beta-(1,3)-D-Glucan B-(1,3)-D-Glucan Intrp Microbiology Microbiology Results: Microbiology 07/19/23 08:40 Blood Culture - Final Blood - Venous No growth after 5 days. 07/19/23 08:07 Blood Culture - Final Blood - Venous No growth after 5 days. 07/22/23 10:05 Blood Culture - Preliminary Blood - Venous No growth after 24 hours. 07/22/23 10:00 Blood Culture - Preliminary Blood - Venous No growth after 24 hours. 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 febrile neutropenia with gram positive bacteremia -no recurrent fevers, WBC stable at 1.4, atypical pneumonia, parainfluenza infection with bacterial superinfection -blood cultures 1/2 positive for Staphylococcus hominis sensitive only to vancomycin ,Repeat blood culture showed no growth times 48 hours, procalcitonin 6.81 echo showed EF 45-50%, small density 0.7-0.6 cm on the atrial side of tricuspid valve possible thrombus or vegetation, mild global hypokinesis and normal diastolic function for age mrsa nares negative, aspergillus antigen and beta 1 3 D glucan pending. -s/p iv vancomycin + cefepime 07/18- 07/22, caspofungin 07/20 -continue acyclovir prophylaxis Case discussed with ID, she recommended to check Bartonella PCR blood test, and to discontinue vancomycin and cefepime, and rec, iv doxycycline and ceftriaxone started on July 22 to cover Bartonella infection In regard to small density on the atrial side of tricuspid valve measuring 0.7/0.6 cm patient was evaluated by tube room supervisor, Dr. Ball he felt that likely it is an old thrombus related to port, less likely infection but can not rule out but since blood cultures are negative, with no significant valvular regurgitation, or heart failure, with thrombocytopenia, he recommend not to proceed with PAULA due to significant risk, and since it will not make any change in management -cont. neutropenic + droplet precations, follow CBC and procalcitonin -will discuss duration and choice of antibiotic with ID thrombocytopenia -platelet dropped to 23,000 from 40,000 no active bleed noted continue to monitor CBC case discussed with Dr. Beltran . hypoproliferative anemia - transfused 2u pRBCs , hct improved , follow CBC. COPD -no acute exacerbation, continue nebulizer treatments hypothyroidism - continue LT4 mood disorder -on trazodone, lorazepam malnutrition - continue supplements - bleeding from left ear canal stopped, Surgicel removed, with no recurrent bleed, recommend outpatient ENT follow-up for possible rupture of tympanic membrane. VTE ppx - SCDs dispo - eventual home In my clinical judgment, the patient requires continued inpatient hospitalization for the following reasons: IV ABX for bacteremia, and expert consultation . Quality Stroke Does the patient have a stroke diagnosis?: No VTE Prior VTE?: No VTE Risk Level:: Medical - moderate - high VTE Device Contraindication: N/A - Device Ordered VTE Drug Contraindication: Treatment Not Indicated
[2023-07-24] MEDS: cefTRIAXone sodium 2 GM in 0.9 % Sodium Chloride 50 ML IV (16:27)
[2023-07-24] MEDS: Caspofungin Acetate 50 MG in 0.9 % Sodium Chloride 250 ML 250 MG IV (17:16)
[2023-07-24 17:24] LABS: Aspergillus Antigen Not Detected (Not Detected); Index Value 0.05 (<0.50)
[2023-07-24] MEDS: traZODone HCL 100 MG TABLET PO (20:41)
[2023-07-25] VITALS (17 sets, daily range): BP systolic 99–162; BP diastolic 52–78; PULSE 68–128; RESP 18–24; TEMP 36.1–39.1; O2SAT 94–99
[2023-07-25] MEDS: Acetaminophen 325 MG TABLET 975 MG PO ×2 (01:17→12:52)
[2023-07-25] MEDS: Doxycycline Hyclate 100 MG in 0.9 % Sodium Chloride 250 ML 166.67 MG IV ×2 (06:36→18:39)
[2023-07-25] MEDS: Levothyroxine Sodium 125 MCG TABLET PO (06:38)
[2023-07-25 07:11] LABS: Hematocrit 25.9 % (37.0-47.0); Mean Corpuscular HGB Conc 34.7 g/dl (31.0-35.0); Mean Corpuscular Hemoglobin 29.7 pg (27.0-33.0); Mean Corpuscular Volume 85.5 fL (80.0-98.0); Mean Platelet Volume 12.6 fL (9.4-12.3); Red Blood Count 3.03 X10*6/uL (4.20-5.50)
[2023-07-25 07:21] LABS: Anion Gap 13 (12-20); Blood Urea Nitrogen 24 mg/dL (9-16); Calcium 8.2 mg/dL (8.4-10.2); Carbon Dioxide 25 mmol/L (22-29); Chloride 100 mmol/L (96-108); Creatinine Clr Calc Pharmacy 45.4; Estimated Glomerular Filt Rate > 60; Glucose Random 165 mg/dL (60-115); Potassium 3.9 mmol/L (3.3-5.1); Sodium 134 mmol/L (135-145)
[2023-07-25 07:31] LABS: White Blood Count 2.2 X10*3/uL (4.8-10.8)
[2023-07-25 07:38] LABS: Platelet Count 15 X10*3/uL (160-400)
[2023-07-25] MEDS: Albuterol/Iprat 2.5/0.5MG 3 ML AMPUL.NEB INHALE ×3 (07:41→19:41)
[2023-07-25] MEDS: Acyclovir 200 MG CAPSULE 400 MG PO ×2 (08:05→21:36)
[2023-07-25] MEDS: Loratadine 10 MG TABLET PO (08:05)
[2023-07-25] MEDS: Potassium Chloride ER 20 MEQ TAB.ER.PRT PO (08:05)
[2023-07-25] MEDS: Cyanocobalamin (Vitamin B-12) 1,000 MCG TABLET 1000 MCG PO (08:05)
[2023-07-25] MEDS: 0.9 % Sodium Chloride Flush 3 ML SYRINGE IVFLUSH ×2 (08:06→21:36)
--- NOTE | 2023-07-25 10:18 | MHC.CM.PN ---
Per ROUNDS discussion, Patient is not yet medically cleared for dc (IV ABT for Bacteremia and following for Neutropenic Fevers); home is the goal and CM will continue to follow.
--- NOTE | 2023-07-25 11:35 | MHC.CLN ---
F/U PO INTAKE VARIABLE DIET RX: REGULAR NEUTROPENIC-APPROPRIATE PT RECEIVING ENSURE TO BID TO PROVIDE 700KCALS, 40G PROTEIN IN ADDITION, PT RECEIVING MAGIC CUP TID WITH MEALS TO INCREASE KCALS MAGIC CUP TO PROVIDE 870KCALS, 27G PROTEIN WITH 100% ACCEPTANCE MONITOR PO INTAKE AND ENCOURAGE SUPPLEMENTS
--- NOTE | 2023-07-25 15:05 | HO.PM.IMPN ---
Subjective Subjective Date of Service: 07/25/23 Interval History: Patient offers no acute complaints noted to have temp of 102.4 degrees midnight and again 101.3 this afternoon, patient noted to be coughing, denies shortness of breath, tolerating diet no nausea no vomiting or abdominal pain, had 1 bowel movement today, no other acute events overnight. Review of Systems All other system reviewed and negative. Physical Exam Vital Signs: Vital Signs: Last Vital Signs Temp 99.3 F 07/25/23 14:17 Pulse 108 H 07/25/23 14:50 Resp 18 07/25/23 14:50 BP 130/58 L 07/25/23 14:17 Pulse Ox 95 07/25/23 12:00 O2 Del Method Room Air 07/25/23 12:00 O2 Flow Rate 94 07/21/23 23:21 Oxygen Flow Rate 4 07/19/23 19:40 BMI result Body Mass Index 18.0 Const: Other: Gen: Awake alert x3, in no acute distress HEENT: sclera anicteric, moist mucus membranes, pale Neck: supple Lungs: Clear to auscultation, no wheeze, no respiratory distress Heart: regular, no murmurs Abd: soft, non-tender, non-distended Ext: no edema Skin: warm/well-perfused, right chest port in place without redness or swelling. Neuro: alert and oriented x3, no focal findings Psych: appropriate affect Left ear no drainage Objective Data Active Medications Acetaminophen (Acetaminophen 325 Mg Tablet) 975 mg PO Q6H PRN PRN Reason: Pain, Mild (Pain Scale 1-3) Last Admin: 07/25/23 12:52 Dose: 975 mg Documented By: KASSY Acyclovir (Acyclovir 200 Mg Capsule) 400 mg PO BID [facility] Last Admin: 07/25/23 08:05 Dose: 400 mg Documented By: KASSY Albuterol Sulfate (Albuterol Sulfate (0.083%) 2.5 Mg/3 Ml Vial.Neb) 2.5 mg INHALE Q2H PRN PRN Reason: Shortness of Breath/Wheezing Albuterol/Ipratropium (Albuterol/Iprat 2.5/0.5mg 3 Ml Ampul.Neb) 3 ml INHALE RQ6H WHILE AWAKE [facility] Last Admin: 07/25/23 14:49 Dose: 3 ml Documented By: SHARYN Cyanocobalamin (Cyanocobalamin (Vitamin B-12) 1,000 Mcg Tablet) 1,000 mcg PO DAILY [facility] Last Admin: 07/25/23 08:05 Dose: 1,000 mcg Documented By: KASSY Docusate Sodium (Docusate Sodium 100 Mg Capsule) 100 mg PO BEDTIME [facility] Doxycycline Hyclate 100 mg/ (Sodium Chloride) 250 mls @ 166.67 mls/hr IV Q12H [facility] Last Infusion: 07/25/23 08:06 Dose: Infused Documented By: KASSY Levothyroxine Sodium (Levothyroxine Sodium 125 Mcg Tablet) 125 mcg PO DAILY@0600 [facility] Last Admin: 07/25/23 06:38 Dose: 125 mcg Documented By: GABRIELE Loratadine (Loratadine 10 Mg Tablet) 10 mg PO DAILY [facility] Last Admin: 07/25/23 08:05 Dose: 10 mg Documented By: KASSY Lorazepam (Lorazepam 0.5 Mg Tablet) 0.5 mg PO DAILY PRN PRN Reason: anxiety Magnesium Hydroxide (Milk Of Magnesia 30 Ml Oral.Susp) 30 ml PO DAILY PRN PRN Reason: Constipation Ondansetron HCl (Ondansetron Hcl 4 Mg/2 Ml Vial) 4 mg IVPUSH Q8H PRN PRN Reason: Nausea and Vomiting Potassium Chloride (Potassium Chloride Er 20 Meq Tab.Er.Prt) 20 meq PO DAILY [facility] Last Admin: 07/25/23 08:05 Dose: 20 meq Documented By: KASSY Sodium Chloride (0.9 % Sodium Chloride Flush 3 Ml Syringe) 3 ml IVFLUSH QSHIFT [facility] Last Admin: 07/25/23 08:06 Dose: 3 ml Documented By: KASSY Trazodone HCl (Trazodone Hcl 100 Mg Tablet) 100 mg PO BEDTIME [facility] Last Admin: 07/24/23 20:41 Dose: 100 mg Documented By: GABRIELE Labs 07/25/23 06:40 07/25/23 06:40 Labs: Laboratory Results - last 24 hr 07/20/23 07/25/23 07/25/23 18:35 06:40 12:14 MCV 85.5 MCH 29.7 MCHC 34.7 RDW 14.0 Plt Count 15 L* MPV 12.6 H Absolute Nucleated RBC 0.000 Nucleated RBC % (auto) 0.0 Anion Gap 13 Estim Creat Clear Calc 45.4 Estimated GFR > 60 Random Glucose 165 H Calcium 8.2 L Procalcitonin 0.80 Aspergillus Ag (EIA) Not Detected Aspergillus Index Value 0.05 Blood Type O Positive Antibody Screen NEGATIVE Microbiology Microbiology Results: Microbiology 07/22/23 10:05 Blood Culture - Preliminary Blood - Venous No growth after 48 hours. 07/22/23 10:00 Blood Culture - Preliminary Blood - Venous No growth after 48 hours. 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 febrile neutropenia with gram positive bacteremia -noted to have fever 102.4 this am , WBC improved to 2.2, fever question due to aspiration versus IV antibiotics CT chest showed interstitial patchy ground-glass opacities right lower lobe probably atypical infection / interstitial infiltrate, parainfluenza infection with bacterial superinfection -blood cultures 1/2 positive for Staphylococcus hominis sensitive only to vancomycin ,Repeat blood culture showed no growth times 48 hours, procalcitonin 6.81on 07/20 improved to 0.80 echo showed EF 45-50%, small density 0.7-0.6 cm on the atrial side of tricuspid valve possible thrombus or vegetation, mild global hypokinesis and normal diastolic function for age mrsa nares negative, aspergillus antigen negative -s/p iv vancomycin + cefepime 07/18- 07/22, continue acyclovir prophylaxis Case discussed with ID, will DC IV caspofungin, DC IV ceftriaxone possible cause of fever, give Tylenol repeat portable chest x-ray Continue IV doxycycline, Bartonella PCR blood test pending In regard to small density on the atrial side of tricuspid valve measuring 0.7/0.6 cm patient was evaluated by platform loader, Dr. Ball he felt that likely it is an old thrombus related to port, less likely infection but can not rule out but since blood cultures are negative, with no significant valvular regurgitation, or heart failure, with thrombocytopenia, he recommend not to proceed with PAULA due to significant risk, and since it will not make any change in management -cont. neutropenic + droplet precations, follow CBC -patient with guarded prognosis with underlying history of AML called patient oncologist Dr. Pike from [facility] to discuss treatment plan and left message. -as per patient she does not have follow-up appointments at [facility] or at [facility] -called patient primary contact Mario Srinivasan [phone] and left a message. thrombocytopenia -platelet dropped to 15,000 from 23,000 no active bleed noted, case discussed with Dr. Juarez he recommend 1 unit of platelets follow CBC hypoproliferative anemia - transfused 2u pRBCs , hct improved , follow CBC. COPD -no acute exacerbation, continue nebulizer treatments hypothyroidism - continue LT4 mood disorder -on trazodone, lorazepam malnutrition - continue supplements - bleeding from left ear canal stopped, Surgicel removed, with no recurrent bleed, recommend outpatient ENT follow-up for possible rupture of tympanic membrane. VTE ppx - SCDs dispo - eventual home/recommend out of bed to chair/consult PT if noted to have difficulty with ambulation. In my clinical judgment, the patient requires continued inpatient hospitalization for the following reasons: IV ABX for bacteremia, and expert consultation . Quality Stroke Does the patient have a stroke diagnosis?: No VTE Prior VTE?: No VTE Risk Level:: Medical - moderate - high VTE Device Contraindication: N/A - Device Ordered VTE Drug Contraindication: Treatment Not Indicated
[2023-07-25] MEDS: Docusate Sodium 100 MG CAPSULE PO (21:36)
[2023-07-25] MEDS: traZODone HCL 100 MG TABLET PO (21:36)
[2023-07-26] VITALS (9 sets, daily range): BP systolic 93–120; BP diastolic 52–58; PULSE 92–104; RESP 16–20; TEMP 36.3–38.1; O2SAT 90–99
[2023-07-26 05:53] LABS: Legionella Ag Urine Not Detected (Not Detected)
[2023-07-26] MEDS: Doxycycline Hyclate 100 MG in 0.9 % Sodium Chloride 250 ML 166.67 MG IV (06:52)
[2023-07-26] MEDS: Levothyroxine Sodium 125 MCG TABLET PO (06:52)
[2023-07-26 06:54] LABS: Hematocrit 24.1 % (37.0-47.0); Hemoglobin 8.5 g/dl (12.0-16.0); Mean Corpuscular HGB Conc 35.3 g/dl (31.0-35.0); Mean Corpuscular Hemoglobin 29.7 pg (27.0-33.0); Mean Corpuscular Volume 84.3 fL (80.0-98.0); PLT CLUMP 1; Red Blood Count 2.86 X10*6/uL (4.20-5.50); Red Cell Distribution Width 14.1 % (11.0-16.0)
[2023-07-26 06:55] LABS: Platelet Count 22 X10*3/uL (160-400); White Blood Count 4.7 X10*3/uL (4.8-10.8)
[2023-07-26] MEDS: Albuterol/Iprat 2.5/0.5MG 3 ML AMPUL.NEB INHALE ×3 (08:59→19:58)
[2023-07-26] MEDS: Potassium Chloride ER 20 MEQ TAB.ER.PRT PO (09:32)
[2023-07-26] MEDS: Acyclovir 200 MG CAPSULE 400 MG PO ×2 (09:32→22:03)
[2023-07-26] MEDS: Cyanocobalamin (Vitamin B-12) 1,000 MCG TABLET 1000 MCG PO (09:32)
[2023-07-26] MEDS: 0.9 % Sodium Chloride Flush 3 ML SYRINGE IVFLUSH ×3 (09:33→22:04)
[2023-07-26] MEDS: Loratadine 10 MG TABLET PO (09:33)
--- NOTE | 2023-07-26 14:11 | P.PNIM_ITS ---
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 Review of Systems All other system reviewed and are negative. Physical Exam 2 Vital Signs: Vital Signs: Last Vital Signs Temp 99.1 F 07/26/23 11:44 Pulse 94 07/26/23 11:44 Resp 20 07/26/23 11:44 BP 100/52 L 07/26/23 11:44 Pulse Ox 95 07/26/23 11:44 O2 Del Method Room Air 07/26/23 11:44 O2 Flow Rate 94 07/21/23 23:21 Oxygen Flow Rate 4 07/19/23 19:40 BMI result Body Mass Index 18.0 Const: Other: Gen: Awake alert x3, in no acute distress HEENT: sclera anicteric, moist mucus membranes, pale Neck: supple Lungs: Clear to auscultation, no wheeze, no respiratory distress Heart: regular, no murmurs Abd: soft, non-tender, non-distended Ext: no edema Skin: warm/well-perfused, right chest port in place without redness or swelling. Neuro: alert and oriented x3, no focal findings Psych: appropriate affect Left ear no drainage Objective Data Active Medications Acetaminophen (Acetaminophen 325 Mg Tablet) 975 mg PO Q6H PRN PRN Reason: Pain, Mild (Pain Scale 1-3) Last Admin: 07/25/23 12:52 Dose: 975 mg Documented By: KASSY Acyclovir (Acyclovir 200 Mg Capsule) 400 mg PO BID [facility] Last Admin: 07/26/23 09:32 Dose: 400 mg Documented By: KASSY Albuterol Sulfate (Albuterol Sulfate (0.083%) 2.5 Mg/3 Ml Vial.Neb) 2.5 mg INHALE Q2H PRN PRN Reason: Shortness of Breath/Wheezing Albuterol/Ipratropium (Albuterol/Iprat 2.5/0.5mg 3 Ml Ampul.Neb) 3 ml INHALE RQ6H WHILE AWAKE [facility] Last Admin: 07/26/23 08:59 Dose: 3 ml Documented By: ANDREW Cyanocobalamin (Cyanocobalamin (Vitamin B-12) 1,000 Mcg Tablet) 1,000 mcg PO DAILY [facility] Last Admin: 07/26/23 09:32 Dose: 1,000 mcg Documented By: KASSY Docusate Sodium (Docusate Sodium 100 Mg Capsule) 100 mg PO BEDTIME [facility] Last Admin: 07/25/23 21:36 Dose: 100 mg Documented By: CINDY Doxycycline Hyclate 100 mg/ (Sodium Chloride) 250 mls @ 166.67 mls/hr IV Q12H [facility] Last Infusion: 07/26/23 08:25 Dose: Infused Documented By: KASSY Levothyroxine Sodium (Levothyroxine Sodium 125 Mcg Tablet) 125 mcg PO DAILY@0600 [facility] Last Admin: 07/26/23 06:52 Dose: 125 mcg Documented By: CINDY Loratadine (Loratadine 10 Mg Tablet) 10 mg PO DAILY [facility] Last Admin: 07/26/23 09:33 Dose: 10 mg Documented By: KASSY Lorazepam (Lorazepam 0.5 Mg Tablet) 0.5 mg PO DAILY PRN PRN Reason: anxiety Magnesium Hydroxide (Milk Of Magnesia 30 Ml Oral.Susp) 30 ml PO DAILY PRN PRN Reason: Constipation Ondansetron HCl (Ondansetron Hcl 4 Mg/2 Ml Vial) 4 mg IVPUSH Q8H PRN PRN Reason: Nausea and Vomiting Potassium Chloride (Potassium Chloride Er 20 Meq Tab.Er.Prt) 20 meq PO DAILY [facility] Last Admin: 07/26/23 09:32 Dose: 20 meq Documented By: KASSY Sodium Chloride (0.9 % Sodium Chloride Flush 3 Ml Syringe) 3 ml IVFLUSH QSHIFT [facility] Last Admin: 07/26/23 09:33 Dose: 3 ml Documented By: KASSY Trazodone HCl (Trazodone Hcl 100 Mg Tablet) 100 mg PO BEDTIME [facility] Last Admin: 07/25/23 21:36 Dose: 100 mg Documented By: CINDY Labs 07/26/23 06:07 07/25/23 06:40 Labs: Laboratory Results - last 24 hr 07/20/23 07/26/23 10:45 06:07 MCV 84.3 MCH 29.7 MCHC 35.3 H RDW 14.1 Plt Count 22 L D MPV 11.0 Absolute Nucleated RBC 0.000 Nucleated RBC % (auto) 0.0 Ur L.pneumophila Ag Not Detected Microbiology Microbiology Results: Microbiology 07/20/23 18:35 Blood Culture - Final Blood - Venous No growth after 5 days. 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 febrile neutropenia with gram positive bacteremia (Staphylococcus hominis only 1 bottle positive) Low-grade fever this morning 100.6, no recurrent high-grade fevers WBC improved to 4.7, fever question due to aspiration versus IV antibiotics CT chest showed interstitial patchy ground-glass opacities right lower lobe probably atypical infection / interstitial infiltrate, parainfluenza infection with bacterial superinfection -blood cultures 1/2 positive for Staphylococcus hominis sensitive only to vancomycin ,Repeat blood culture showed no growth times 48 hours, procalcitonin 6.81on 07/20 improved to 0.80 echo showed EF 45-50%, small density 0.7-0.6 cm on the atrial side of tricuspid valve possible thrombus or vegetation, mild global hypokinesis and normal diastolic function for age mrsa nares negative, aspergillus antigen negative -s/p iv vancomycin + cefepime 07/18- 07/22, continue acyclovir prophylaxis Case discussed with ID, will DC IV caspofungin, DC IV ceftriaxone possible cause of fever, give Tylenol repeat portable chest x-ray Continue IV doxycycline started on July 22, Bartonella PCR blood test pending sent to reference lab, will discuss duration of antibiotic with ID In regard to small density on the atrial side of tricuspid valve measuring 0.7/0.6 cm patient was evaluated by inbound customer service agent, Dr. Ball he felt that likely it is an old thrombus related to port, less likely infection but can not rule out but since blood cultures are negative, with no significant valvular regurgitation, or heart failure, with thrombocytopenia, he recommend not to proceed with PAULA due to significant risk, and since it will not make any change in management -cont. neutropenic + droplet precations, follow CBC -patient with guarded prognosis with underlying history of AML called patient oncologist Dr. Wolff from [facility] they have follow-up appointment twice weekly for the patient, they have discuss goal of care with patient several times with patient has poor insight, will discharge patient back to [facility] next follow-up on thrombocytopenia -platelet improved back to 22,000 after 1 unit of packed RBC hypoproliferative anemia - transfused 2u pRBCs , hct improved , follow CBC. COPD -no acute exacerbation, continue nebulizer treatments hypothyroidism - continue LT4 mood disorder -on trazodone, lorazepam malnutrition - continue supplements - bleeding from left ear canal stopped, Surgicel removed, with no recurrent bleed, recommend outpatient ENT follow-up for possible rupture of tympanic membrane. VTE ppx - SCDs dispo - eventual home/recommend out of bed to chair/seen by PT they recommend home with services In my clinical judgment, the patient requires continued inpatient hospitalization for the following reasons: IV ABX for bacteremia, and expert consultation . Quality Stroke Does the patient have a stroke diagnosis?: No VTE Prior VTE?: No VTE Risk Level:: Medical - moderate - high VTE Device Contraindication: N/A - Device Ordered VTE Drug Contraindication: Treatment Not Indicated
[2023-07-26] MEDS: Doxycycline Hyclate 100 MG in 0.9 % Sodium Chloride 250 ML 166.7 MG IV (18:58)
[2023-07-26] MEDS: traZODone HCL 100 MG TABLET PO (22:02)
[2023-07-27] VITALS (14 sets, daily range): BP systolic 102–167; BP diastolic 56–77; PULSE 57–111; RESP 16–21; TEMP 36.3–37.4; O2SAT 91–97
[2023-07-27 06:43] LABS: Hematocrit 24.1 % (37.0-47.0); Hemoglobin 8.3 g/dl (12.0-16.0); Mean Corpuscular HGB Conc 34.4 g/dl (31.0-35.0); Mean Corpuscular Hemoglobin 29.4 pg (27.0-33.0); Mean Corpuscular Volume 85.5 fL (80.0-98.0); Mean Platelet Volume 12.9 fL (9.4-12.3); NRBC Pct Auto 0.5 /100WBC (0.0-0.2); Red Blood Count 2.82 X10*6/uL (4.20-5.50); Red Cell Distribution Width 14.2 % (11.0-16.0); White Blood Count 6.4 X10*3/uL (4.8-10.8)
[2023-07-27] MEDS: Doxycycline Hyclate 100 MG in 0.9 % Sodium Chloride 250 ML 166.67 MG IV (06:45)
[2023-07-27] MEDS: Levothyroxine Sodium 125 MCG TABLET PO (06:46)
[2023-07-27 06:47] LABS: Platelet Count 15 X10*3/uL (160-400)
[2023-07-27] MEDS: Albuterol/Iprat 2.5/0.5MG 3 ML AMPUL.NEB INHALE ×3 (07:53→18:54)
[2023-07-27] MEDS: Acyclovir 200 MG CAPSULE 400 MG PO ×2 (08:55→20:22)
[2023-07-27] MEDS: Cyanocobalamin (Vitamin B-12) 1,000 MCG TABLET 1000 MCG PO (08:55)
[2023-07-27] MEDS: Loratadine 10 MG TABLET PO (08:55)
[2023-07-27] MEDS: 0.9 % Sodium Chloride Flush 3 ML SYRINGE IVFLUSH ×2 (08:56→20:22)
[2023-07-27] MEDS: Potassium Chloride ER 20 MEQ TAB.ER.PRT PO (08:58)
--- NOTE | 2023-07-27 10:23 | MHC.CM.PN ---
Per ROUNDS discussion, Patient is not yet medically cleared for dc (receiving Platelets); home is the goal and CM will continue to follow.
--- NOTE | 2023-07-27 13:08 | MHC.CLN ---
F/U PO INTAKE REMAINS VARIABLE DIET RX: REGULAR NEUTROPENIC-APPROPRIATE PT RECEIVING ENSURE BID TO PROVIDE 700KCALS, 40G PROTEIN IN ADDITION, PT RECEIVING MAGIC CUP TID WITH MEALS TO INCREASE KCALS MAGIC CUP TO PROVIDE 870KCALS, 27G PROTEIN WITH 100% ACCEPTANCE MONITOR PO INTAKE AND ENCOURAGE SUPPLEMENTS
--- NOTE | 2023-07-27 13:15 | HO.PM.IMPN ---
Subjective Subjective Date of Service: 07/27/23 Interval History: Sitting comfortably on bed offers no acute complaints, no fevers x 24 hours, tolerating diet no nausea, no vomiting, no abdominal pain, denies cough, chronic shortness of breath with ambulation, no urinary symptoms. Review of Systems All other system reviewed and negative Physical Exam Vital Signs: Vital Signs: Last Vital Signs Temp 98.6 F 07/27/23 12:07 Pulse 91 07/27/23 12:07 Resp 20 07/27/23 12:07 BP 134/70 07/27/23 12:07 Pulse Ox 94 07/27/23 11:14 O2 Del Method Room Air 07/27/23 11:14 O2 Flow Rate 94 07/21/23 23:21 Oxygen Flow Rate 4 07/19/23 19:40 BMI result Body Mass Index 18.0 Const: Other: Gen: Awake alert x3, in no acute distress HEENT: sclera anicteric, moist mucus membranes, pale Neck: supple Lungs: Clear to auscultation, no wheeze, no respiratory distress Heart: regular, no murmurs Abd: soft, non-tender, non-distended Ext: no edema Skin: warm/well-perfused, right chest port in place without redness or swelling. Neuro: alert and oriented x3, no focal findings Psych: appropriate affect Left ear no drainage Objective Data Active Medications Acetaminophen (Acetaminophen 325 Mg Tablet) 975 mg PO Q6H PRN PRN Reason: Pain, Mild (Pain Scale 1-3) Last Admin: 07/25/23 12:52 Dose: 975 mg Documented By: KASSY Acyclovir (Acyclovir 200 Mg Capsule) 400 mg PO BID [facility] Last Admin: 07/27/23 08:55 Dose: 400 mg Documented By: SUSHILA Albuterol/Ipratropium (Albuterol/Iprat 2.5/0.5mg 3 Ml Ampul.Neb) 3 ml INHALE RQ6H WHILE AWAKE [facility] Last Admin: 07/27/23 07:53 Dose: 3 ml Documented By: ANDREW Cyanocobalamin (Cyanocobalamin (Vitamin B-12) 1,000 Mcg Tablet) 1,000 mcg PO DAILY [facility] Last Admin: 07/27/23 08:55 Dose: 1,000 mcg Documented By: SUSHILA Docusate Sodium (Docusate Sodium 100 Mg Capsule) 100 mg PO BEDTIME [facility] Last Admin: 07/26/23 22:03 Dose: Not Given Documented By: CINDY Non-Admin Reason: pt had diarrhea today Doxycycline Hyclate 100 mg/ (Sodium Chloride) 250 mls @ 166.67 mls/hr IV Q12H [facility] Last Infusion: 07/27/23 09:00 Dose: Infused Documented By: SUSHILA Levothyroxine Sodium (Levothyroxine Sodium 125 Mcg Tablet) 125 mcg PO DAILY@0600 [facility] Last Admin: 07/27/23 06:46 Dose: 125 mcg Documented By: CINDY Loratadine (Loratadine 10 Mg Tablet) 10 mg PO DAILY [facility] Last Admin: 07/27/23 08:55 Dose: 10 mg Documented By: SUSHILA Lorazepam (Lorazepam 0.5 Mg Tablet) 0.5 mg PO DAILY PRN PRN Reason: anxiety Magnesium Hydroxide (Milk Of Magnesia 30 Ml Oral.Susp) 30 ml PO DAILY PRN PRN Reason: Constipation Ondansetron HCl (Ondansetron Hcl 4 Mg/2 Ml Vial) 4 mg IVPUSH Q8H PRN PRN Reason: Nausea and Vomiting Potassium Chloride (Potassium Chloride Er 20 Meq Tab.Er.Prt) 20 meq PO DAILY [facility] Last Admin: 07/27/23 08:58 Dose: 20 meq Documented By: SUSHILA Sodium Chloride (0.9 % Sodium Chloride Flush 3 Ml Syringe) 3 ml IVFLUSH QSHIFT [facility] Last Admin: 07/27/23 08:56 Dose: 3 ml Documented By: SUSHILA Trazodone HCl (Trazodone Hcl 100 Mg Tablet) 100 mg PO BEDTIME [facility] Last Admin: 07/26/23 22:02 Dose: 100 mg Documented By: CINDY Labs 07/27/23 06:17 07/25/23 06:40 Labs: Laboratory Results - last 24 hr 07/25/23 07/27/23 12:14 06:17 MCV 85.5 MCH 29.4 MCHC 34.4 RDW 14.2 Plt Count 15 L* MPV 12.9 H Absolute Nucleated RBC 0.030 H Nucleated RBC % (auto) 0.5 H Blood Type O Positive Antibody Screen NEGATIVE Assessment and Plan (1) Gram-positive bacteremia: Status: Acute Plan 73yo F with hx DLBCL s/p CAR-T complicated by AML, currently on oral chemotherapy [Inqovi],recent admission 07/08-07/12/23 for neutropenic fever, presenting with cough, anorexia, chills, lethargy, noted to have neutropenia fever and parainfluenza. febrile neutropenia with gram positive bacteremia (Staphylococcus hominis only 1 bottle positive) Last episode of fever 100.6,> 24h no recurrent high-grade fevers CT chest showed interstitial patchy ground-glass opacities right lower lobe probably atypical infection / interstitial infiltrate, parainfluenza infection with bacterial superinfection -blood cultures 1/2 positive for Staphylococcus hominis sensitive only to vancomycin ,Repeat blood culture showed no growth times 48 hours, procalcitonin 6.81on 07/20 improved to 0.80 echo showed EF 45-50%, small density 0.7-0.6 cm on the atrial side of tricuspid valve possible thrombus or vegetation, mild global hypokinesis and normal diastolic function for age mrsa nares negative, aspergillus antigen negative -s/p iv vancomycin + cefepime 07/18- 07/22, status post IV caspofungin stopped due to negative Aspergillus,s/p iv ceftriaxone stopped due to possible fevers Case discussed with ID, she recommend doxycycline for total 10 days started on July 22 will transition to by mouth end date July 31 Bartonella PCR blood test (CHECKED WITH LAB IS PENDING) sent to reference lab for possible cause of endocarditis cont. neutropenic + droplet precations, follow CBC In regard to small density on the atrial side of tricuspid valve measuring 0.7/0.6 cm patient was evaluated by learn to swim instructor, Dr. Ball he felt that likely it is an old thrombus related to port, less likely infection but can not rule out but since blood cultures are negative, with no significant valvular regurgitation, or heart failure, with thrombocytopenia, he recommend not to proceed with PAULA due to significant risk, and since it will not make any change in management patient with guarded prognosis with underlying history of AML called patient oncologist Dr. Wolff from [facility] they have follow-up appointment twice weekly for the patient, they have discuss goal of care with patient several times with patient has poor insight, will discharge patient back to [facility] next follow-up on than 07/31, 08/04. thrombocytopenia -platelet keep dropping down 15,000 today will transfuse 1 more unit ( total 4 units ) and follow CBC at a.m. if improved will discharge home for a follow-up appointment at [facility] on 07/28 hypoproliferative anemia - transfused 2u pRBCs , hct improved ,Being followed at [facility] twice weekly for lab draws. COPD -no acute exacerbation, continue nebulizer treatments hypothyroidism - continue LT4 mood disorder -on trazodone, lorazepam malnutrition - continue supplements - bleeding from left ear canal stopped, Surgicel removed, with no recurrent bleed, recommend outpatient ENT follow-up for possible rupture of tympanic membrane. VTE ppx - SCDs dispo - PT recommend home with services In my clinical judgment, the patient requires continued inpatient hospitalization for the following reasons: Low platelet counts requiring blood transfusion and follow-up on neutropenic fever no . Quality Stroke Does the patient have a stroke diagnosis?: No VTE Prior VTE?: No VTE Risk Level:: Medical - moderate - high VTE Device Contraindication: N/A - Device Ordered VTE Drug Contraindication: Treatment Not Indicated
[2023-07-27] MEDS: traZODone HCL 100 MG TABLET PO (20:22)
[2023-07-27] MEDS: Doxycycline Monohydrate 100 MG CAPSULE PO (20:22)
[2023-07-27] MEDS: Docusate Sodium 100 MG CAPSULE PO (20:22)
[2023-07-28] MEDS: 0.9 % Sodium Chloride Flush 3 ML SYRINGE IVFLUSH ×2 (02:53→08:22)
[2023-07-28 03:51] VITALS: BP 132/68; PULSE 93; RESP 19; TEMP 36.4; O2SAT 95
[2023-07-28] MEDS: Levothyroxine Sodium 125 MCG TABLET PO (05:06)
[2023-07-28 05:49] VITALS: BMI 18.9
[2023-07-28 07:36] VITALS: BP 126/62; PULSE 88; RESP 20; TEMP 36.3; O2SAT 97
[2023-07-28] MEDS: Potassium Chloride ER 20 MEQ TAB.ER.PRT PO (08:20)
[2023-07-28] MEDS: Doxycycline Monohydrate 100 MG CAPSULE PO (08:20)
[2023-07-28] MEDS: Acyclovir 200 MG CAPSULE 400 MG PO (08:20)
[2023-07-28] MEDS: Loratadine 10 MG TABLET PO (08:20)
[2023-07-28] MEDS: Cyanocobalamin (Vitamin B-12) 1,000 MCG TABLET 1000 MCG PO (08:20)
[2023-07-28 08:41] LABS: Baso%MD 0.5 %; Eos%MD 0.1 %; Hematocrit 27.4 % (37.0-47.0); Hemoglobin 9.4 g/dl (12.0-16.0); IG%MD 5.7 %; Lymph%MD 21.2 %; Mean Corpuscular HGB Conc 34.3 g/dl (31.0-35.0); Mean Corpuscular Hemoglobin 29.7 pg (27.0-33.0); Mean Corpuscular Volume 86.4 fL (80.0-98.0); Mean Platelet Volume 10.4 fL (9.4-12.3); Mono%MD 18.6 %; NRBC Pct Auto 0.4 /100WBC (0.0-0.2); Neut%MD 53.9 %; Red Blood Count 3.17 X10*6/uL (4.20-5.50); Red Cell Distribution Width 14.3 % (11.0-16.0)
[2023-07-28 08:43] LABS: Platelet Count 36 X10*3/uL (160-400); WBC ABN SCTR FOR CBC 1
[2023-07-28 09:24] LABS: Atypical Lymphs Percent Manual 2 % (0-6); Band Neutrophils Percent 1 % (3-5); Basophils Percent Manual 4 % (0-2); Lymphocytes Percent Manual 13 % (20-40); Metamyelocytes Percent 1 %; Monocytes Percent Manual 10 % (2-11); Neutrophils Percent Manual 69 % (45-73)
[2023-07-28 09:25] LABS: Nucleated Red Blood Cells 1 /100WBC (0-0)
[2023-07-28 09:28] LABS: Platelet Estimate DECREASED (NORMAL); Platelet Morphology Comment NORMAL; RBC Morphology NORMAL
[2023-07-28 09:30] LABS: Atypical Lymph Absolute Manual 0.2 x10*3/uL; Basophils Abs Manual 0.4 X10*3/uL (0.0-0.2); Lymphocytes Absolute Manual 1.4 X10*3/uL (1.2-4.9); Metamyelocytes Absolute 0.1 X10*3/uL; Monocytes Absolute Manual 1.1 X10*3/uL (0.1-1.2); Neutrophils Absolute Manual 7.7 X10*3/uL (2.0-8.3)
[2023-07-28 11:31] VITALS: BP 138/67; PULSE 98; RESP 12; TEMP 36.3; O2SAT 92
--- NOTE | 2023-07-28 13:41 | PM.DS ---
DS: Providers Provider Date of Service: 07/28/23 Date of admission: 07/19/23 13:53 Date of discharge: 07/28/23 Primary care physician: Burt Juarez MD Consults: 07/19/23 13:53 Consult to Hematology / Oncology Routine Consulting Provider: Burt Juarez Reason for consultation: neutropenic fever 07/19/23 14:00 Consult to Infectious Diseases Routine Consulting Provider: [facility] Reason for consultation: neutropenic fever 07/20/23 15:53 Consult to Hematology / Oncology Stat Consulting Provider: [facility] Oncology/Hematology Reason for consultation: AML pt of Dr Juarez's, neutropenic fever, bleeding from ear- ?DIC? 07/23/23 16:02 Consult to Infectious Diseases Routine Consulting Provider: Mary Alice Alfaro Reason for consultation: neutropenic fever Has provider been notified: Yes 07/23/23 16:06 Consult to Cardiology Routine Consulting Provider: [facility] Reason for consultation: vegetation /staph hominis bacteremia Has provider been notified: No DS: Diagnosis Discharge Diagnosis (1) Parainfluenza: Status: Acute (2) Thrombocytopenia: Status: Acute (3) Fever and neutropenia: Status: Acute (4) Acute myeloid leukemia: Status: Acute (5) Tricuspid valve vegetation: Status: Acute (6) Bleeding from left ear: Status: Acute DS: Summary Hospital Course Hospital Course: From the history and physical by the admitting hospitalist, MARYANN Schroeder, 07/19/23: 73-year-old female with history of AML on palliative oral chemotherapy (Inqovi), COPD presentede ED earlier today for evaluation of productive cough, anorexia, fatigue and lethargy ongoing for 2 days. She has not actually taken her temperature but does feel sweats and chills. Denies known sick Contacts. Denies nasal congestion, sore throat, abdominal pain, nausea, vomiting, diarrhea, shortness of breath, chest pain. She was recently admitted from 07/08-07/11 for treatment of neutropenic fever, thrombocytopenia, and anemia in the setting of AML. She was treated with cefepime and vancomycin and discharged with Augmentin and doxycycline. She follows with Matthew Lazcano (Dr. Grayson) and last Inqovi was taken 06/21, due next week. On arrivan, elevated temp of 100.3 and tachycardia to 131m tachypneic at 27. Oximetry 92% on RA. She is neutropenic with WBC 0.8, ANC 0.1. Anemic with H/H 7.8/23.2%, consistent with baseline. Platelets 11. Creatinine baseline, electrolyte levels normal. Lactic acid 1.1. Troponin detectable but within normal limits. Procalcitonin 11. Positive for parainfluenza. Chest x-ray unremarkable. Head CT negative for acute intracranial abnormality. In the ED, given IV cefepime, 6 mg dexamethasone, IV NS, DuoNeb, and Tylenol. She also recevied platelets. She will be admitted for neutropenic fever with parainfluenza. 73yo F with hx DLBCL s/p CAR-T complicated by AML, currently on oral chemotherapy [Inqovi] with a recent admission to [facility] 07/08-07/12/23. She re-presented to [facility] with cough, anorexia, chills, and lethargy. She was noted to have neutropenia fever and parainfluenza infection and was admitted to the telemetry unit. Hospital course by problem: febrile neutropenia tricuspid vegetation AML - respiratory pathogen panel positive for parainfluenza - initially covered with IV vancomycin, cefepime, and caspofungin for possibility of bacterial and fungal superinfection - procalcitonin of 6.81 decreased to 0.8 - blood cultures grew Staphylococus hominis in 1 of 2 sets; repeat blood culture was negative. Likely contaminant. - Fungitell and Aspergillus EIA both negative - TTE showed EF 45-50% with a small 0.7cm x 0.6cm density on the atrial side of tricuspid valve representing a possible thrombus or vegetation. Cardiology was consulted and felt it was an old thrombus related to the port. No PAULA was recommended as it would not exchange clerk. - per ID, transitioned to doxycycline on 07/22 to end 07/31; Bartonella PCR from blood sent and pending at time of discharge - recommend following up with [facility] ID [Dr Evangelina Alfaro] in 1-2 weeks - neutropenia resolved after severeal doses of Granix [ANC benoit 112] - patient will follow up with Dr Wolff from [facility] Oncology on 07/28 then 07/31 [followed twice weekly] thrombocytopenia anemia - transfused total 4 units of platelets; platelet count benoit 11 [on admission]; platelet count 36 at discharge - transfused total 2 units packed red blood cell; Hb 7.8 on admission, 9.4 at discharge L ear bleeding - occurred while febrile and thrombocytopenic; resolved with gentle packing of ear canal with Surgicel; recommend outpatient ENT follow-up She was discharged home; VNA services were recommended but declined by the patient. Time Attestation Discharge Coordination Time (in mins): 45 Quality: Safe Use of Opioids Does Pt have an Active Cancer Diagnosis on the Problem List?: Yes Opioid Measure Date for [facility] Report: 06/28/23 Opioid Measure Time for [facility] Report: 13:56 Quality: Stroke Does the patient have a stroke diagnosis?: No Physical Exam Vital Signs: Vital Signs: Last Vital Signs Temp 97.4 F 07/28/23 11:31 Pulse 98 07/28/23 11:31 Resp 12 07/28/23 11:31 BP 138/67 07/28/23 11:31 Pulse Ox 92 07/28/23 11:31 O2 Del Method Room Air 07/28/23 11:31 O2 Flow Rate 3 07/27/23 23:35 Oxygen Flow Rate 4 07/19/23 19:40 BMI result Body Mass Index 18.9 Gen: in no acute distress HEENT: sclera anicteric, moist mucus membranes, pale Neck: supple Lungs: clear bilaterally Heart: regular, no murmurs Abd: soft, non-tender, non-distended Ext: no edema Skin: warm/well-perfused, port in place without signs of infection Neuro: alert and oriented x3, no focal findings Psych: appropriate affect DS: Data Data Completed and Pending Completed studies during hospitalization [Text1]: Laboratory Results WBC 11.0 X10*3/uL (4.8-10.8) H 07/28/23 08:02 RBC 3.17 X10*6/uL (4.20-5.50) L 07/28/23 08:02 Hgb 9.4 g/dl (12.0-16.0) L 07/28/23 08:02 Hct 27.4 % (37.0-47.0) L 07/28/23 08:02 MCV 86.4 fL (80.0-98.0) 07/28/23 08:02 MCH 29.7 pg (27.0-33.0) 07/28/23 08:02 MCHC 34.3 g/dl (31.0-35.0) 07/28/23 08:02 RDW 14.3 % (11.0-16.0) 07/28/23 08:02 Plt Count 36 X10*3/uL (160-400) L D 07/28/23 08:02 MPV 10.4 fL (9.4-12.3) 07/28/23 08:02 Immature Gran % (Auto) Cancelled 07/23/23 05:53 Neut % (Auto) Cancelled 07/23/23 05:53 Lymph % (Auto) Cancelled 07/23/23 05:53 Moffat % (Auto) Cancelled 07/23/23 05:53 Eos % (Auto) Cancelled 07/23/23 05:53 Baso % (Auto) Cancelled 07/23/23 05:53 Lymph # (Auto) Cancelled 07/23/23 05:53 Moffat # (Auto) Cancelled 07/23/23 05:53 Eos # (Auto) Cancelled 07/23/23 05:53 Baso # (Auto) Cancelled 07/23/23 05:53 Abs Immat Gran (auto) Cancelled 07/23/23 05:53 Absolute Neuts (auto) Cancelled 07/23/23 05:53 Absolute Nucleated RBC 0.040 X10*3/uL (0.0-0.012) H 07/28/23 08:02 Nucleated RBC % (auto) 0.4 /100WBC (0.0-0.2) H 07/28/23 08:02 Neutrophils % (Manual) 69 % (45-73) 07/28/23 08:02 Band Neutrophils % 1 % (3-5) L 07/28/23 08:02 Lymphocytes % (Manual) 13 % (20-40) L 07/28/23 08:02 Atypical Lymphs % (Man) 2 % (0-6) 07/28/23 08:02 Monocytes % (Manual) 10 % (2-11) 07/28/23 08:02 Basophils % (Manual) 4 % (0-2) H 07/28/23 08:02 Metamyelocytes % 1 % 07/28/23 08:02 Myelocytes % 1 % 07/23/23 05:52 Promyelocytes % 1 % 07/24/23 05:48 Blast Cells % (Manual) 8 % 07/24/23 05:48 Abs Neuts (Manual) 7.7 X10*3/uL (2.0-8.3) 07/28/23 08:02 Lymphocytes # (Manual) 1.4 X10*3/uL (1.2-4.9) 07/28/23 08:02 Atyp Lymphs # (Manual) 0.2 x10*3/uL 07/28/23 08:02 Monocytes # (Manual) 1.1 X10*3/uL (0.1-1.2) 07/28/23 08:02 Basophils # (Manual) 0.4 X10*3/uL (0.0-0.2) H 07/28/23 08:02 Metamyelocytes # 0.1 X10*3/uL 07/28/23 08:02 Promyelocytes # 0.1 X10*3/uL 07/19/23 08:23 Blast Cells # 0.1 X10*3/uL 07/24/23 05:48 Nucleated RBCs 1 /100WBC (0-0) H 07/28/23 08:02 WBC Morphology Comment DYSMORPHIC 07/22/23 06:10 Platelet Estimate DECREASED (NORMAL) 07/28/23 08:02 Large Platelets PRESENT 07/24/23 05:48 Plt Morphology Comment NORMAL 07/28/23 08:02 RBC Morphology NORMAL 07/28/23 08:02 Microcytosis 1+ (5-14) /OIF 07/22/23 06:10 Tear Drop Cells 1+ (0-2) /OIF 07/19/23 08:23 Ovalocytes 1+ (5-14) /OIF 07/24/23 05:48 Kate Cells 2+ (3-5) /OIF 07/23/23 05:52 Schistocytes 1+ (0-2) /OIF 07/23/23 05:52 Smear Tech's Comments VERIFIED 07/20/23 04:48 PT 17.1 SEC (11.1-13.3) H 07/20/23 17:44 INR 1.4 (0.9-1.1) H 07/20/23 17:44 Fibrinogen 614 MG/DL (259-690) 07/20/23 17:44 D-Dimer High Sensitivty 2212 NG/ML 07/20/23 17:44 VBG pH 7.45 (7.32-7.43) H 07/19/23 08:31 VBG pCO2 32 mmHg 07/19/23 08:31 VBG pO2 68 mmHg 07/19/23 08:31 VBG HCO3 23 mmol/L (22-26) 07/19/23 08:31 VBG O2 Saturation 95.0 % 07/19/23 08:31 VBG Base Excess -0.1 mmol/L 07/19/23 08:31 Sodium 134 mmol/L (135-145) L 07/25/23 06:40 Potassium 3.9 mmol/L (3.3-5.1) 07/25/23 06:40 Chloride 100 mmol/L (96-108) 07/25/23 06:40 Carbon Dioxide 25 mmol/L (22-29) 07/25/23 06:40 Anion Gap 13 (12-20) 07/25/23 06:40 BUN 24 mg/dL (9-16) H 07/25/23 06:40 Creatinine 0.83 mg/dL (0.5-1.4) 07/25/23 06:40 Estim Creat Clear Calc 45.4 07/25/23 06:40 Estimated GFR > 60 07/25/23 06:40 POC Glucose 101 mg/dL (60-115) 07/19/23 07:35 Random Glucose 165 mg/dL (60-115) H 07/25/23 06:40 Lactic Acid 1.1 mmol/L (0.5-2.0) 07/19/23 08:21 Calcium 8.2 mg/dL (8.4-10.2) L 07/25/23 06:40 Magnesium 1.9 mg/dL (1.6-2.6) 07/19/23 08:23 Total Bilirubin 0.5 mg/dL (0.0-1.0) 07/19/23 08:23 Direct Bilirubin 0.3 mg/dL (0.0-0.5) 07/19/23 08:23 AST 17 U/L (5-31) 07/19/23 08:23 ALT 21 U/L (0-31) 07/19/23 08:23 Alkaline Phosphatase 108 U/L (39-117) 07/19/23 08:23 Troponin I High Sens 8.8 ng/L (<3.5-17.0) 07/19/23 08:23 B-Natriuretic Peptide 257 pg/mL (<100) H 07/19/23 08:23 Total Protein 5.4 g/dL (6.5-8.0) L 07/19/23 08:23 Albumin 3.4 g/dL (3.5-5.0) L 07/19/23 08:23 Lipase 6 U/L (8-78) L 07/19/23 08:23 Procalcitonin 0.80 ng/mL 07/25/23 06:40 Nasal Screen MRSA (PCR) NEGATIVE (Negative) 07/23/23 07:00 Nasal S. aureus Screen NEGATIVE (Negative) 07/23/23 07:00 Nasal MRSA/S.aureus Interp SEE NOTE 07/23/23 07:00 Random Vancomycin 13.4 mcg/mL (15-20) L 07/23/23 14:08 Respiratory Panel Gar See Note 07/19/23 08:07 Adenovirus (Rapid PCR) Not Detected (Not Detect.) 07/19/23 08:07 B.pert (TEM-PCR) Not Detected (Not Detect.) 07/19/23 08:07 B.parapertussis DNA PCR Not Detected (Not Detect.) 07/19/23 08:07 C. pneumoniae DNA (PCR) Not Detected (Not Detect.) 07/19/23 08:07 Coronavirus OC43 (PCR) Not Detected (Not Detect.) 07/19/23 08:07 Coronavirus HKU1 (PCR) Not Detected (Not Detect.) 07/19/23 08:07 Coronavirus 229E (PCR) Not Detected (Not Detect.) 07/19/23 08:07 Coronavirus NL63 (PCR) Not Detected (Not Detect.) 07/19/23 08:07 Human Metapneumovir PCR Not Detected (Not Detect.) 07/19/23 08:07 Influenza A (RT-PCR) Not Detected (Not Detect.) 07/19/23 08:07 Influenza B (RT-PCR) Not Detected (Not Detect.) 07/19/23 08:07 Ur L.pneumophila Ag Not Detected (Not Detected) 07/20/23 10:45 M. pneumoniae (PCR) Not Detected (Not Detect.) 07/19/23 08:07 Parainfluenza 1 (PCR) Not Detected (Not Detect.) 07/19/23 08:07 Parainfluenza 2 (PCR) Not Detected (Not Detect.) 07/19/23 08:07 Parainfluenza 3 (PCR) Detected (Not Detect.) A 07/19/23 08:07 Parainfluenza 4 (PCR) Not Detected (Not Detect.) 07/19/23 08:07 Aspergillus Ag (EIA) Not Detected (Not Detected) 07/20/23 18:35 Aspergillus Index Value 0.05 (<0.50) 07/20/23 18:35 RSV (PCR) Not Detected (Not Detect.) 07/19/23 08:07 Entero/Rhino (PCR) Not Detected (Not Detect.) 07/19/23 08:07 SARS-CoV-2 RNA (RT-PCR) Not Detected (Not Detect.) 07/19/23 08:07 Ur Strep pneumoniae Ag Not Detected (Not Detected) 07/20/23 10:45 Beta-(1,3)-D-Glucan <31 pg/mL (<60) 07/20/23 18:35 B-(1,3)-D-Glucan Intrp Negative 07/20/23 18:35 Blood Type O Positive 07/25/23 12:14 Antibody Screen NEGATIVE 07/25/23 12:14 Crossmatch See Detail 07/19/23 08:[address] 07/19/23 09:29 IMPRESSION: No fracture or intracranial bleed. Chest CT 07/19/23 14:52 IMPRESSION: 1. Interstitial patchy ground-glass opacities right lower lobe, suggesting probably atypical infection, interstitial infiltrate pneumonia. No dense lobar consolidation. 2. Mild delgado lobar pulmonary emphysema. 3. No lung mass or suspicious spiculated nodules, there are few scattered tiny nonspecific lung nodular densities measuring up to 4 mm or less. Fleischner criteria does not apply for oncology patients. Further management and/or follow-up should be determined per oncology. 4. Coronary calcification. 5. Calcified mediastinal and hilar lymph nodes might be an old granulomatous disease. 6. Port-A-Cath embedded in the right chest wall with its tip in the SVC. Abdomen/Pelvis CT 05/29/24 14:20 IMPRESSION: No acute inflammatory findings in the abdomen/pelvis. Bronchiolitis in the lower lobes, right greater than left. Chest X-Ray 07/25/23 15:40 IMPRESSION: Bronchial wall thickening at the lung bases. No evidence of lobar pneumonia. Question Tiny bilateral pleural effusions. Pending studies at discharge: 07/23/23 Bartonella PCR Labs on day of discharge: Discharge Plan Discharge Anticipated Discharge Date/Time: 07/28/23 12:56 Patient Disposition: Home, Self-Care Discharge Diagnosis: neutropenic fever thrombocytopenia parainfluenza infection tricuspid valvular vegetation acute myeloid leukemia Referrals: Mary Alice Alfaro MD [Physician] - 1 Week Burt Juarez MD [Primary Care Provider] - 1 Week Hieu Khoury [Physician] - 2 Weeks Discharge Medications: New doxycycline monohydrate 100 mg Capsule 100 mg PO Q12H Qty: 10 0RF Continued fexofenadine [Nahed Allergy] 180 mg Tablet 180 mg PO DAILY potassium chloride 20 mEq tablet extended release 20 meq PO DAILY Rx Instructions: with food cyanocobalamin (vitamin B-12) 1,000 mcg tablet 1,000 mcg PO DAILY trazodone 100 mg tablet 100 mg PO BEDTIME acyclovir 400 mg tablet 400 mg PO BID levothyroxine 125 mcg tablet 125 mcg PO DAILY@0600 lorazepam 0.5 mg tablet 0.5 mg PO DAILY PRN (Reason: anxiety) Discharge Orders: Discharge Order (Routine); Ordered 07/28/23 Ordered By: Yissel Joshua Diet: Advance to usual diet Activity on Discharge: As tolerated Stand Alone Forms: Patient Portal Discharge page Print Language: Croatian Care Plan Goals: resume treatment of AML Health Concerns: neutropenic fever thrombocytopenia parainfluenza infection tricuspid valvular vegetation acute myeloid leukemia Plan of Treatment: follow up as scheduled with [facility] Oncology 07/29/23 take doxycycline 100 mg twice daily for 5 more days; follow up with Dr Evangelina Alfaro from [facility] Infectious Disease in 1-2 weeks outpatient ENT consult re: bleeding from left ear Please follow up with your primary care doctor within 1 week. Return to the hospital if you experience recurrent or worsening symptoms. Assessment: See Discharge Summary.
--- NOTE | 2023-07-28 14:42 | MHC.CM.PN ---
Patient is medically cleared for dc to SNF/STR today. Patient will dc to her first choice SNF/[facility] today at 4:30 PM, via [facility]. IMM addressed with Patient at bedside and original was given to her and a copy has been placed on the chart. CM spoke with Friend/HCP/Crystal @ [phone] and informed her of the dc plan.
[2023-07-28] MEDS: Heparin Sodium,Porcine Flush 50 UNITS/5 ML SYRINGE IVFLUSH (15:15)
[2023-07-28 15:23] VITALS: BP 139/63; PULSE 92; RESP 18; RESP 20; TEMP 36.3; O2SAT 89; O2SAT 97
[2023-07-28] MEDS: Albuterol/Iprat 2.5/0.5MG 3 ML AMPUL.NEB INHALE (15:23)
== END 2023-07-28 17:47 | disposition skilled nursing facility (03) | DRG 871 ==
LOC: HO.ED 09:40 → HO.EDOVER 13:59 → HO.S3 07-20 12:55 → HO.IMC 07-20 15:46
PROVIDERS: Hospitalist; Internal Medicine; Student in an Organized Health Care Education/Training Program; Admitting Provider Physician Assistant; Emergency Provider Emergency Medicine; PCP Internal Medicine Medical Oncology; Visit Provider Family Medicine
DX: A41.89 Other specified sepsis (principal); D61.810 Antineoplastic chemotherapy induced pancytopenia; J12.9 Viral pneumonia, unspecified; C92.00 Acute myeloblastic leukemia, not having achieved remission; Z94.84 Stem cells transplant status; J43.9 Emphysema, unspecified; D70.9 Neutropenia, unspecified; R50.81 Fever presenting with conditions classified elsewhere; H92.22 Otorrhagia, left ear; T45.1X5A Adverse effect of antineoplastic and immunosuppressive drugs, initial encounter; E03.9 Hypothyroidism, unspecified; B34.8 Other viral infections of unspecified site; F39 Unspecified mood [affective] disorder; F17.210 Nicotine dependence, cigarettes, uncomplicated; Z71.6 Tobacco abuse counseling; Z20.822 Contact with and (suspected) exposure to COVID-19; Z79.890 Hormone replacement therapy; Z79.899 Other long term (current) drug therapy
CPT/HCPCS: 36415; 70450; 71045; 71250; 74177; 80048; 80076; 80202; 82565; 82803; 82947; 83605; 83690; 83735; 83880; 84145; 84484; 85007; 85025; 85027; 85379; 85384; 85610; 86850; 86900; 86901; 86923; 87040; 87077; 87186; 87205; 87305; 87449; 87471; 87633; 87640; 87641; 87899; 93005; 93306; 94640; 97162; 97530; 99285; J0637; J0692; J0696; J1100; J1447; J1642; J2919; J3370; J3371; P9016; P9073; Q9967

== ENCOUNTER → 2023-07-19 07:17 | Outpatient (BNV) | payer MEDICARE, SELFPAY | PROVIDERS: Admitting Provider Physician Assistant; Emergency Provider Emergency Medicine; PCP Internal Medicine Medical Oncology; Visit Provider Internal Medicine | DX: I49.3 Ventricular premature depolarization (principal) | CPT/HCPCS: 93010 ==

== ENCOUNTER 2023-07-19 13:53 | Outpatient (BNV) | payer MEDICARE, SELFPAY | END 2023-07-22 07:00 | PROVIDERS: Admitting Provider Physician Assistant; Emergency Provider Emergency Medicine; PCP Internal Medicine Medical Oncology; Visit Provider Internal Medicine | DX: I35.8 Other nonrheumatic aortic valve disorders (principal); R93.1 Abnormal findings on diagnostic imaging of heart and coronary circulation; R78.81 Bacteremia | CPT/HCPCS: 93306 ==

== ENCOUNTER → 2023-07-19 13:53 | Outpatient (BNV) | payer MEDICARE, SELFPAY | PROVIDERS: Admitting Provider Physician Assistant; Emergency Provider Emergency Medicine; PCP Internal Medicine Medical Oncology; Visit Provider Internal Medicine | DX: R78.81 Bacteremia (principal); B34.8 Other viral infections of unspecified site | CPT/HCPCS: 99222; 99232 ==

== ENCOUNTER → 2023-07-19 13:53 | Outpatient (BNV) | payer MEDICARE, SELFPAY | PROVIDERS: Admitting Provider Physician Assistant; Emergency Provider Emergency Medicine; PCP Internal Medicine Medical Oncology; Visit Provider Physician Assistant | DX: D69.6 Thrombocytopenia, unspecified (principal); D70.9 Neutropenia, unspecified; B34.8 Other viral infections of unspecified site; R50.81 Fever presenting with conditions classified elsewhere; C92.00 Acute myeloblastic leukemia, not having achieved remission; I33.0 Acute and subacute infective endocarditis; H92.22 Otorrhagia, left ear | CPT/HCPCS: 99223; 99232; 99233; 99239; 99499 ==

== ENCOUNTER → 2023-07-19 13:53 | Outpatient (BNV) | payer MEDICARE, SELFPAY | PROVIDERS: Admitting Provider Physician Assistant; Emergency Provider Emergency Medicine; PCP Internal Medicine Medical Oncology; Visit Provider Internal Medicine | DX: C92.00 Acute myeloblastic leukemia, not having achieved remission (principal) | CPT/HCPCS: 99222; 99231 ==

== ENCOUNTER → 2023-07-19 13:53 | Outpatient (BNV) | payer MEDICARE, SELFPAY | PROVIDERS: Admitting Provider Physician Assistant; Emergency Provider Emergency Medicine; PCP Internal Medicine Medical Oncology; Visit Provider Internal Medicine | DX: B34.8 Other viral infections of unspecified site (principal); D70.9 Neutropenia, unspecified; D69.6 Thrombocytopenia, unspecified; R50.81 Fever presenting with conditions classified elsewhere; C92.00 Acute myeloblastic leukemia, not having achieved remission | CPT/HCPCS: 99223 ==

== ENCOUNTER 2023-08-08 13:45 | Outpatient (AMB) | payer MEDICARE, SELFPAY ==
[2023-08-08 14:30] VITALS: PULSE 63; TEMP 37.1
--- NOTE | 2023-08-08 14:30 | A.OFFVIS_ITS ---
Vital Signs 08/08/23 14:30 Pulse 63 Pulse Source Pulse Oximeter Temp 98.7 F Temp Source Oral Intake Visit Reasons: Ref .[facility],Neutropenic fever Allergies adhesive tape Allergy (Unknown, Verified 08/12/23 12:49) RASH bacitracin [Bacitracin] Allergy (Unknown, Verified 08/12/23 12:49) RASH HPI HPI Ref .[facility],Neutropenic fever: Details: She has had RLL pneumonia. She has AML/parainfluenza . He sees Dr Juarez and he is on palliative medication (Inqan). She has COPD and was on Cefipme and Vancomycin She was on Doxycycline 07/22-07/31. Bartonella was unremarkable. [facility] Medical History Anemia Thrombocytopenia Acute myeloid leukemia Gram-positive bacteremia Tobacco dependence Dyspnea COPD (chronic obstructive pulmonary disease) Anemia COPD with asthma Anxiety Depression Non-Hodgkin lymphoma in remission Hypothyroidism Surgical History S/P angiogram of extremity (02/13/20) History of salpingo-oophorectomy H/O: hysterectomy Family History Father CAD (coronary artery disease) Social History Household Members: None Housing: House Do you presently have visiting nurse or other home services: No Alcohol intake: never Comment: lalito is being paited , no falling star at this time Patient Tobacco Use Status: Current everyday Tobacco user Tobacco use type: Cigarette Cigarette Packs Per Day: 1 Years Smoked: 40 Second Hand Smoke Exposure: No (not interested) Advance Directives Date on File: 07/16/21 service: No Current occupational status: retired Review of Systems Const All systems reviewed & are unremarkable except as noted in HPI and below Physical Exam Vital Signs: Last Vital Signs Temp 98.7 F 08/08/23 14:30 Pulse 63 08/08/23 14:30 Const General: cooperative HEENT Head: Yes normal to inspection Face and sinus: Yes normal facial exam Mouth: Normal oral and palatal mucosa present Teeth and gingiva: dentition normal Eyes General: appearance normal, both eyes and all related structures Pupils: Equal, round and reactive pupils present Resp Effort & Inspection: normal respiratory effort Cardio Rate: regular rate Rhythm: regular rhythm GI Palpation (GI): Soft to palpation and nontender General: Yes no CVA tenderness Back/Spine/Pelvis Back: no CVA tenderness Skin General skin exam: no rashes or lesions noted Neuro General: moves all extremities Cranial nerves: Yes Equal, round and reactive pupils present Extrem General: Yes normal to inspection Psych Appearance: grossly normal Assessment & Plan Assessment & Plan (1) Parainfluenza: Comment: She is doing well Code(s): B34.8 - Other viral infections of unspecified site Category: Medical Plan: Finish antibiotics No further treatment at this time. (2) Dyspnea: Code(s): R06.00 - Dyspnea, unspecified Category: Medical Plan: na (3) Acute viral syndrome: Code(s): B34.9 - Viral infection, unspecified Category: Medical Plan: na Coding Level of Care Code Est Pt Level 3 (21590) Diagnoses Parainfluenza B34.8 Dyspnea R06.00 Acute viral syndrome B34.9
== END 2023-08-08 14:47 | disposition home or self-care (01) ==
LOC: HO.HID 13:45
PROVIDERS: PCP Internal Medicine Medical Oncology; Visit Provider Internal Medicine
DX: B34.8 Other viral infections of unspecified site (principal); R06.00 Dyspnea, unspecified; B34.9 Viral infection, unspecified
CPT/HCPCS: 99213

== ENCOUNTER → 2023-08-08 13:45 | Outpatient (BNVA) | payer MEDICARE, SELFPAY | PROVIDERS: PCP Internal Medicine Medical Oncology; Visit Provider Internal Medicine | DX: B34.8 Other viral infections of unspecified site (principal); B34.9 Viral infection, unspecified; D70.9 Neutropenia, unspecified; R06.00 Dyspnea, unspecified | CPT/HCPCS: 99212 ==

== ENCOUNTER 2023-08-12 12:37 | Observation (INO) | payer MEDICARE, SELFPAY ==
[2023-08-12] VITALS (11 sets, daily range): BP systolic 85–135; BP diastolic 40–67; PULSE 83–104; RESP 16–20; TEMP 36.3–37.2; O2SAT 96–100; BMI 17.3; BMI 17.4
--- NOTE | 2023-08-12 12:52 | ED_ITS ---
HPI - General Adult General Chief complaint: Recheck/Abnormal Lab/Rx Stated complaint: Patient coming from SNF, abnormal labs. Time Seen by Provider: 08/12/23 12:43 Source: patient and EMS Mode of arrival: EMS Limitations: no limitations History of Present Illness HPI narrative: This is a 73yof with a pmhx AML on palliative oral chemotherapy (Inqovi - follows with Dr. Juarez, and Dr. Grayson at [facility]), COPD (not on home O2), recent admission with neutropenic fever/parainfluenza infection/anemia/thrombocytopenia (benoit 11, platelet count 36 on discharge) who is BIBEMS for evaluation of low hemoglobin. EMS states patient had routine blood work this morning and was found to have a low hemoglobin of approximately 8.5 and sent in for evaluation. Patient states no complaints. She states no chest pain or dyspnea. She states she has previously had low blood counts and needed transfusions. She states she may need red blood cells or platelets. She states no fever, chills, cough, hemoptysis, headache, neck pain, fatigue, lightheadedness, back pain, nausea/vomiting, hematemesis, diarrhea, melena, hematochezia, hematuria or dysuria. She states no trauma or falls. Related Data Home Medications ?Medication ?Instructions ?Recorded ?Confirmed acyclovir 400 mg tablet 400 mg PO BID 01/31/20 07/19/23 levothyroxine 125 mcg tablet 125 mcg PO DAILY@0600 01/31/20 07/19/23 trazodone 100 mg tablet 100 mg PO BEDTIME 01/31/20 07/19/23 lorazepam 0.5 mg tablet 0.5 mg PO DAILY PRN anxiety 03/01/22 07/19/23 cyanocobalamin (vitamin B-12) 1,000 mcg PO DAILY 02/02/23 07/19/23 1,000 mcg tablet potassium chloride 20 mEq 20 meq PO DAILY 02/02/23 07/19/23 tablet,extended release fexofenadine 180 mg tablet 180 mg PO DAILY 07/10/23 07/19/23 (Nahed Allergy) bisacodyl 10 mg rectal suppository 10 mg [place] DAILY PRN 08/08/23 cyanocobalamin (vitamin B-12) 500 500 mcg PO DAILY 08/08/23 mcg lozenges potassium chloride 20 mEq/15 mL 20 meq PO DAILY 08/08/23 oral liquid Previous Rx's ?Medication ?Instructions ?Recorded doxycycline monohydrate 100 mg 100 mg PO Q12H #10 caps 07/28/23 capsule Allergies Allergy/AdvReac Type Severity Reaction Status Date / Time adhesive tape Allergy Unknown RASH Verified 08/12/23 12:49 bacitracin [Bacitracin] Allergy Unknown RASH Verified 08/12/23 12:49 Review of Systems 2 Review of Systems: ROS as per HPI [facility] Past Medical History Medical History Tobacco dependence Dyspnea COPD (chronic obstructive pulmonary disease) Anemia COPD with asthma Anxiety Depression Non-Hodgkin lymphoma in remission Hypothyroidism Surgical History S/P angiogram of extremity (02/13/20) History of salpingo-oophorectomy H/O: hysterectomy Family History Family History Father CAD (coronary artery disease) Social History Social History Household Members: None Housing: House Do you presently have visiting nurse or other home services: No Alcohol intake: never Comment: lalito is being paited , no falling star at this time Patient Tobacco Use Status: Current everyday Tobacco user Tobacco use type: Cigar Cigarette Packs Per Day: 1 Years Smoked: 40 Smoked in Last 30 Days: No Second Hand Smoke Exposure: No Use of substances other than those prescribed or required for medical reasons: No Advance Directives: Yes Advance Directives on File: Yes Advance Directives Date on File: 07/16/21 Do you have a plan to hurt others: No Plan service: No Current occupational status: retired Physical Exam ED Vital Signs: Vital Signs - 24 hr 08/12/23 12:47 08/12/23 14:57 08/12/23 15:13 Temperature 98.4 F 98.3 F 98.1 F Pulse Rate 102 H 96 83 Respiratory Rate 16 16 16 Blood Pressure 119/51 L 92/46 L 85/67 L Pulse Oximetry 96 Oxygen Delivery Method Room Air 08/12/23 16:00 Temperature 98.2 F Pulse Rate 104 H Respiratory Rate 17 Blood Pressure 90/40 L Pulse Oximetry 98 Oxygen Delivery Method BMI result Body Mass Index 17.3 Gen: NAD, AOx3 Skin: No ecchymosis to anterior/posterior torso will bilateral upper/lower extremities HEENT: NCAT, EOMI, no scleral icterus, pale conjunctiva CV: RRR, no peripheral pitting edema Pulm: CTAB, no increased work of breathing GI: Soft, NTND, no rebound, guarding or rigidity MSK: port-a cath to right chest wall without TTP/erythema/induration/purulence Medications Administered Discontinued Medications Generic Name Dose Route Start Last Admin Trade Name Freq PRN Reason Stop Dose Admin Sodium Chloride 100 mls @ 100 mls/hr 08/12/23 13:49 08/12/23 15:03 Ns IV 08/12/23 14:48 100 mls/hr ONCE ONE Administration Medical Decision Making Medical Decision Making [facility] Narrative: Differential diagnosis includes, but is not limited to acute on chronic anemia, thrombocytopenia. Patient has had soft blood pressures here in the ED, but she maintains appropriate MAP greater than 65 mm Hg and is mentating well despite these low blood pressure readings. Of note, patient only weighs 45.7 kg. This is not sepsis. Exam is benign and reassuring albeit notable for pale conjunctiva. I reviewed and interpreted labs, which is notable for anemia with hemoglobin of 5.8. Platelet count is reassuring and there is no active bleeding or indication for platelet tranfusion at this time. Patient is transfused 2 units PRBCs and empirically provided 1 g IV calcium gluconate in case of need for further blood transfusion while inpatient. Case and management discussed with the admitting hospitalist Dr. Taylor The patient is admitted to the hospitalist service for further work up and management. Admission/Observation Consideration of admission/observation: Escalation of care including admission/observation considered Consult Healthcare Provider Management of the patient was discussed with: Hospitalist Case and management discussed with the admitting hospitalist Dr. Taylor Lab Data [facility] Lab Attestation statement: I reviewed the patient's lab results. 08/12/23 13:31 08/12/23 13:31 Labs: Lab Results 08/12/23 Range/Units 13:31 WBC 17.3 H (4.8-10.8) X10*3/uL RBC 1.95 L D (4.20-5.50) X10*6/uL Hgb 5.8 L* D (12.0-16.0) g/dl Hct 17.3 L* D (37.0-47.0) % MCV 88.7 (80.0-98.0) fL MCH 29.7 (27.0-33.0) pg MCHC 33.5 (31.0-35.0) g/dl RDW 14.2 (11.0-16.0) % Plt Count 80 L D (160-400) X10*3/uL MPV Not Reportable Immature Gran % (Auto) Cancelled Neut % (Auto) Cancelled Lymph % (Auto) Cancelled [place] % (Auto) Cancelled Eos % (Auto) Cancelled Baso % (Auto) Cancelled Lymph # (Auto) Cancelled [place] # (Auto) Cancelled Eos # (Auto) Cancelled Baso # (Auto) Cancelled Abs Immat Gran (auto) Cancelled Absolute Neuts (auto) Cancelled Absolute Nucleated RBC 0.130 H (0.0-0.012) X10*3/uL Nucleated RBC % (auto) 0.8 H (0.0-0.2) /100WBC Neutrophils % (Manual) 50 (45-73) % Band Neutrophils % 1 L (3-5) % Lymphocytes % (Manual) 20 (20-40) % Atypical Lymphs % (Man) 4 (0-6) % Monocytes % (Manual) 7 (2-11) % Eosinophils % (Manual) 1 (0-4) % Basophils % (Manual) 8 H (0-2) % Metamyelocytes % 1 % Myelocytes % 3 % Blast Cells % (Manual) 5 % Abs Neuts (Manual) 8.8 H (2.0-8.3) X10*3/uL Lymphocytes # (Manual) 3.5 (1.2-4.9) X10*3/uL Atyp Lymphs # (Manual) 0.7 x10*3/uL Monocytes # (Manual) 1.2 (0.1-1.2) X10*3/uL Eosinophils # (Manual) 0.2 (0.0-0.4) X10*3/uL Basophils # (Manual) 1.4 H (0.0-0.2) X10*3/uL Metamyelocytes # 0.2 X10*3/uL Myelocytes # 0.5 X10*/uL Blast Cells # 0.9 X10*3/uL Platelet Estimate DECREASED (NORMAL) Large Platelets PRESENT Plt Morphology Comment NOTED RBC Morphology NOTED Hypochromasia 2+ (15-30) /OIF Ovalocytes 1+ (5-14) /OIF Sodium 139 (135-145) mmol/L Potassium 4.0 (3.3-5.1) mmol/L Chloride 104 (96-108) mmol/L Carbon Dioxide 28 (22-29) mmol/L Anion Gap 11 L (12-20) BUN 11 (9-16) mg/dL Creatinine 0.80 (0.5-1.4) mg/dL Estim Creat Clear Calc 45.1 Estimated GFR > 60 Random Glucose 143 H (60-115) mg/dL Calcium 8.8 D (8.4-10.2) mg/dL Blood Type O Positive Antibody Screen NEGATIVE Crossmatch See Detail Discharge Plan Discharge Clinical Impression: Anemia Patient Disposition: Admitted As Inpatient Prescriptions: No Action fexofenadine [Nahed Allergy] 180 mg Tablet 180 mg PO DAILY potassium chloride 20 mEq tablet extended release 20 meq PO DAILY Rx Instructions: with food cyanocobalamin (vitamin B-12) 1,000 mcg tablet 1,000 mcg PO DAILY doxycycline monohydrate 100 mg Capsule 100 mg PO Q12H Qty: 10 0RF trazodone 100 mg tablet 100 mg PO BEDTIME acyclovir 400 mg tablet 400 mg PO BID levothyroxine 125 mcg tablet 125 mcg PO DAILY@0600 lorazepam 0.5 mg tablet 0.5 mg PO DAILY PRN (Reason: anxiety) cyanocobalamin (vitamin B-12) 500 mcg lozenge 500 mcg PO DAILY bisacodyl 10 mg suppository 10 mg AK DAILY PRN potassium chloride 20 mEq/15 mL liquid 20 meq PO DAILY Print Language: Serbian
[2023-08-12 13:42] LABS: Mean Corpuscular HGB Conc 33.5 g/dl (31.0-35.0); Mean Corpuscular Hemoglobin 29.7 pg (27.0-33.0); Mean Corpuscular Volume 88.7 fL (80.0-98.0); NRBC Pct Auto 0.8 /100WBC (0.0-0.2); PLT CLUMP 1; Red Blood Count 1.95 X10*6/uL (4.20-5.50); Red Cell Distribution Width 14.2 % (11.0-16.0)
[2023-08-12 13:43] LABS: WBC ABN SCTR FOR CBC 1
[2023-08-12 13:49] LABS: Hematocrit 17.3 % (37.0-47.0); Hemoglobin 5.8 g/dl (12.0-16.0)
[2023-08-12 13:50] LABS: Anion Gap 11 (12-20); Blood Urea Nitrogen 11 mg/dL (9-16); Calcium 8.8 mg/dL (8.4-10.2); Carbon Dioxide 28 mmol/L (22-29); Chloride 104 mmol/L (96-108); Creatinine Clr Calc Pharmacy 45.1; Estimated Glomerular Filt Rate > 60; Glucose Random 143 mg/dL (60-115); Sodium 139 mmol/L (135-145)
[2023-08-12 14:17] LABS: Atypical Lymphs Percent Manual 4 % (0-6); Band Neutrophils Percent 1 % (3-5); Basophils Percent Manual 8 % (0-2); Blast Percent 5 %; Eosinophils Percent Manual 1 % (0-4); Lymphocytes Percent Manual 20 % (20-40); Metamyelocytes Percent 1 %; Monocytes Percent Manual 7 % (2-11); Myelocytes Percent 3 %; Neutrophils Percent Manual 50 % (45-73)
--- NOTE | 2023-08-12 14:23 | PC.NURSE ---
patient resting quietly in bed, presented to ED with low HGB, patient is alert and oriented, denies any sob/chest pain. patient has power port, port accessed, positive blood return. labs collected and sent. plan of care on going. patient states she ambulates with a walker at baseline
[2023-08-12 14:28] LABS: Hypochromasia 2+ (15-30) /OIF; RBC Morphology NOTED
[2023-08-12 14:29] LABS: Ovalocytes 1+ (5-14) /OIF
[2023-08-12 14:43] LABS: Large Platelet PRESENT; Platelet Estimate DECREASED (NORMAL); Platelet Morphology Comment NOTED
[2023-08-12 14:44] LABS: Atypical Lymph Absolute Manual 0.7 x10*3/uL; Basophils Abs Manual 1.4 X10*3/uL (0.0-0.2); Blastocytes Absolute 0.9 X10*3/uL; Eosinophils Absolute Manual 0.2 X10*3/uL (0.0-0.4); Lymphocytes Absolute Manual 3.5 X10*3/uL (1.2-4.9); Metamyelocytes Absolute 0.2 X10*3/uL; Monocytes Absolute Manual 1.2 X10*3/uL (0.1-1.2); Myelocytes Absolute 0.5 X10*/uL; Neutrophils Absolute Manual 8.8 X10*3/uL (2.0-8.3); Platelet Count 80 X10*3/uL (160-400); White Blood Count 17.3 X10*3/uL (4.8-10.8)
--- NOTE | 2023-08-12 17:16 | P.HPHOSP_ITS ---
History of Present Illness Date of Service: 08/12/23 Chief Complaint: Abnormal labs; severe anemia A 73 years old lady with PMH of AML on palliative oral chemotherapy (Inqovi), COPD, hypothyroidism among others who presented to ED from SNF with abnormal blood work showing Hb of 5.8. The patient was tested by staff this morning and found to have low Hb and was yessica to the hospital for further work up and transfusion. she denies any symptoms stating her energy and strength are the same. No chest pain, palpitations, SOB, nausea, vomiting, diarrhea or urinary symptoms. No bleeding reported. Started on blood trnasfusion in ED. Review of Systems 2 Review of Systems: No fever, chills or weakness No chest pain, palpitation No shortness of breath or coughing No abdominal pain, nausea or vomiting No urinary symptoms Yes all other systems are reviewed and are negative [facility] Medical History Gram-positive bacteremia Tobacco dependence Dyspnea COPD (chronic obstructive pulmonary disease) Anemia COPD with asthma Anxiety Depression Non-Hodgkin lymphoma in remission Hypothyroidism Family History Father CAD (coronary artery disease) Surgical History S/P angiogram of extremity (02/13/20) History of salpingo-oophorectomy H/O: hysterectomy Social History Household Members: None Housing: House Do you presently have visiting nurse or other home services: No Alcohol intake: never Comment: lalito is being paited , no falling star at this time Patient Tobacco Use Status: Current everyday Tobacco user Tobacco use type: Cigar Cigarette Packs Per Day: 1 Years Smoked: 40 Smoked in Last 30 Days: No Second Hand Smoke Exposure: No Use of substances other than those prescribed or required for medical reasons: No Advance Directives: Yes Advance Directives on File: Yes Advance Directives Date on File: 07/16/21 Do you have a plan to hurt others: No Plan service: No Current occupational status: retired Meds Allergies Allergy/AdvReac Type Severity Reaction Status Date / Time adhesive tape Allergy Unknown RASH Verified 08/12/23 12:49 bacitracin [Bacitracin] Allergy Unknown RASH Verified 08/12/23 12:49 Active Medications: Current Medications Calcium Gluconate (Calcium Gluconate) 1 gm in 50 mls @ 50 mls/hr IV ONCE ONE Stop: 08/12/23 17:23 Home Medications ?Medication ?Instructions ?Recorded ?Confirmed ?Last Taken ?Type acyclovir 400 mg tablet 400 mg PO BID 01/31/20 07/19/23 07/09/23 History levothyroxine 125 mcg tablet 125 mcg PO DAILY@0600 01/31/20 07/19/23 07/09/23 History trazodone 100 mg tablet 100 mg PO BEDTIME 01/31/20 07/19/23 07/08/23 History lorazepam 0.5 mg tablet 0.5 mg PO DAILY PRN anxiety 03/01/22 07/19/23 02/02/23 History cyanocobalamin (vitamin B-12) 1,000 mcg PO DAILY 02/02/23 07/19/23 07/09/23 History 1,000 mcg tablet potassium chloride 20 mEq 20 meq PO DAILY 02/02/23 07/19/23 07/09/23 History tablet,extended release fexofenadine 180 mg tablet 180 mg PO DAILY 07/10/23 07/19/23 07/09/23 History (Nahed Allergy) bisacodyl 10 mg rectal suppository 10 mg [place] DAILY PRN Constipation 08/08/23 Unknown History cyanocobalamin (vitamin B-12) 500 500 mcg PO DAILY 08/08/23 Unknown History mcg lozenges potassium chloride 20 mEq/15 mL 20 meq PO DAILY 08/08/23 Unknown History oral liquid Physical Exam 2 Vital Signs and Narrative: Vital Signs: Last Vital Signs Temp 98.2 F 08/12/23 16:00 Pulse 104 H 08/12/23 16:00 Resp 17 08/12/23 16:00 BP 90/40 L 08/12/23 16:00 Pulse Ox 98 08/12/23 16:00 O2 Del Method Room Air 08/12/23 12:47 BMI result Body Mass Index 17.3 Const: Other: Constitutional : Awake, not in distress Neck : Normal inspection, Supple Cardiovascular : RRR, no JVP, no lower extremity edema Respiratory : good bilateral air entry, no crackles Gastrointestinal: soft, lax, Non tender Skin : Warm, Dry Neurological : Alert & oriented x3, No focal deficit Results Labs 08/12/23 13:31 08/12/23 13:31 Labs: Laboratory Results - last 24 hr 08/12/23 13:31 MCV 88.7 MCH 29.7 MCHC 33.5 RDW 14.2 Plt Count 80 L D MPV Not Reportable Immature Gran % (Auto) Cancelled Neut % (Auto) Cancelled Lymph % (Auto) Cancelled [place] % (Auto) Cancelled Eos % (Auto) Cancelled Baso % (Auto) Cancelled Lymph # (Auto) Cancelled [place] # (Auto) Cancelled Eos # (Auto) Cancelled Baso # (Auto) Cancelled Abs Immat Gran (auto) Cancelled Absolute Neuts (auto) Cancelled Absolute Nucleated RBC 0.130 H Nucleated RBC % (auto) 0.8 H Neutrophils % (Manual) 50 Band Neutrophils % 1 L Lymphocytes % (Manual) 20 Atypical Lymphs % (Man) 4 Monocytes % (Manual) 7 Eosinophils % (Manual) 1 Basophils % (Manual) 8 H Metamyelocytes % 1 Myelocytes % 3 Blast Cells % (Manual) 5 Abs Neuts (Manual) 8.8 H Lymphocytes # (Manual) 3.5 Atyp Lymphs # (Manual) 0.7 Monocytes # (Manual) 1.2 Eosinophils # (Manual) 0.2 Basophils # (Manual) 1.4 H Metamyelocytes # 0.2 Myelocytes # 0.5 Blast Cells # 0.9 Platelet Estimate DECREASED Large Platelets PRESENT Plt Morphology Comment NOTED RBC Morphology NOTED Hypochromasia 2+ (15-30) Ovalocytes 1+ (5-14) Anion Gap 11 L Estim Creat Clear Calc 45.1 Estimated GFR > 60 Random Glucose 143 H Calcium 8.8 D Blood Type O Positive Antibody Screen NEGATIVE Crossmatch See Detail Assessment and Plan (1) Acute on chronic anemia: Status: Acute (2) Thrombocytopenia: Status: Acute (3) Acute myeloid leukemia: Status: Acute Plan A 73 years old lady with PMH of AML on palliative oral chemotherapy (Inqovi), COPD, hypothyroidism among others who presented to ED from [facility] with abnormal blood work showing Hb of 5.8. Acute on chronic anemia 2/2 AML transfuse 2 units of blood monitor H&H Thrombocytopenia PLT at 80 , no bleeding monitor AML was on palliative Inqovi pending Med rec to confirm home meds COPD no acute exacerbation, continue nebulizer treatments hypothyroidism continue LT4 mood disorder trazodone, lorazepam malnutrition continue supplements DVT PPx SCDs Quality Stroke Does the patient have a stroke diagnosis?: No VTE Prior VTE?: No VTE Risk Level:: Medical - moderate - high VTE Device Contraindication: N/A - Device Ordered VTE Drug Contraindication: Treatment Not Indicated
--- NOTE | 2023-08-12 18:32 | PHA.MEDREC ---
Addendum entered by Sasha Valiente [facility] 08/12/23 18:38: Confirmed with [facility] that patient has not been getting doxycycline Original Note: Pharmacy Consult ? Medication Reconciliation Pharmacy has completed the medication reconciliation.Spoke to pt at bedside, they were able to name all their medications. Stated that they received morning meds at [facility] before coming here.
--- NOTE | 2023-08-12 19:22 | PC.NURSE ---
blood infusion started per apr. vss. pt assisted to bedside commode had small soft BM, steady gait uses walker at baseline. pt is axox4 resting comfortably in stretcher. resp even and unlabored, lung sounds cta.
[2023-08-12] MEDS: Calcium Gluconate/NaCl,Iso-Osm 1 GM/50 ML PLAST..BAG IV (23:06)
[2023-08-13 03:19] VITALS: BP 132/61; PULSE 99; RESP 16; TEMP 36.7; O2SAT 99
[2023-08-13 07:09] LABS: Hemoglobin 9.1 g/dl (12.0-16.0); Mean Corpuscular Hemoglobin 29.7 pg (27.0-33.0); NRBC Pct Auto 0.8 /100WBC (0.0-0.2); PLT CLUMP 1; Red Blood Count 3.06 X10*6/uL (4.20-5.50); Red Cell Distribution Width 14.7 % (11.0-16.0); White Blood Count 18.1 X10*3/uL (4.8-10.8)
[2023-08-13 07:10] LABS: Platelet Count 78 X10*3/uL (160-400)
[2023-08-13 07:35] LABS: Anion Gap 12 (12-20); Blood Urea Nitrogen 12 mg/dL (9-16); Calcium 9.1 mg/dL (8.4-10.2); Carbon Dioxide 26 mmol/L (22-29); Chloride 105 mmol/L (96-108); Creatinine Clr Calc Pharmacy 48.5; Estimated Glomerular Filt Rate > 60; Glucose Random 87 mg/dL (60-115); Potassium 3.7 mmol/L (3.3-5.1); Sodium 139 mmol/L (135-145)
[2023-08-13 08:00] VITALS: BP 132/63; PULSE 89; RESP 16; TEMP 36.2; O2SAT 100
[2023-08-13] MEDS: 0.9 % Sodium Chloride Flush 3 ML SYRINGE IVFLUSH (08:49)
--- NOTE | 2023-08-13 09:54 | P.DS_ITS ---
DS: Providers Provider Date of Service: 08/13/23 Date of admission: 08/12/23 17:12 Primary care physician: Burt Juarez MD DS: Diagnosis Discharge Diagnosis (1) Acute on chronic anemia: Status: Acute (2) Thrombocytopenia: Status: Acute (3) Acute myeloid leukemia: Status: Acute DS: Summary Hospital Course Hospital Course: Admission note HPI A 73 years old lady with PMH of AML on palliative oral chemotherapy (Inqovi), COPD, hypothyroidism among others who presented to ED from SNF with abnormal blood work showing Hb of 5.8. The patient was tested by staff this morning and found to have low Hb and was yessica to the hospital for further work up and transfusion. she denies any symptoms stating her energy and strength are the same. No chest pain, palpitations, SOB, nausea, vomiting, diarrhea or urinary symptoms. No bleeding reported. Started on blood trnasfusion in ED. Hospital course The patient was transfused 2 units of PRBCs with good response as Hb improved to 9.1, Hct 26 and PLT remained around 80k. No evidence of bleeding. Anemia is secondary to AML and chemotherapy. Continue to monitor blood levels at nursing facility. Oncology team to follow as outpatient. Leukocytosis likely related to AML as no signs\symptoms to suggest infection. Discharge plan Continue to check your blood levels as scheduled. transfusion as needed. Time Attestation Discharge Coordination Time (in mins): 25 Quality: Safe Use of Opioids Does Pt have an Active Cancer Diagnosis on the Problem List?: Yes Opioid Measure Date for [facility] Report: 07/14/23 Opioid Measure Time for [facility] Report: 09:56 Quality: Stroke Does the patient have a stroke diagnosis?: No Physical Exam Vital Signs: Vital Signs: Last Vital Signs Temp 97.1 F 08/13/23 08:00 Pulse 89 08/13/23 08:00 Resp 16 08/13/23 08:00 BP 132/63 08/13/23 08:00 Pulse Ox 100 08/13/23 08:00 O2 Del Method Room Air 08/13/23 08:00 BMI result Body Mass Index 17.4 Const: Other: Constitutional : Awake, not in distress Neck : Normal inspection, Supple Cardiovascular : RRR, no JVP, no lower extremity edema Respiratory : good bilateral air entry, no crackles Gastrointestinal: soft, lax, Non tender Skin : Warm, Dry Neurological : Alert & oriented x3, No focal deficit DS: Data Data Completed and Pending Completed studies during hospitalization [Text1]: Procedures Insertion of Infusion Device into Upper Vein, Percutaneous Approach (07/19/23) Introduction of Remdesivir Anti-infective into Peripheral Vein, Percutaneous Gabriel elmo[employer] 5 (03/10/21) Reposition Left Clavicle with Internal Fixation Device, Open Approach (07/15/21) Transfusion of Nonautologous Platelets into Peripheral Vein, Percutaneous Appr oach (07/19/23) Transfusion of Nonautologous Red Blood Cells into Peripheral Vein, Percutaneous Approach (07/19/23) Labs on day of discharge: Laboratory Results - last 24 hr 08/12/23 08/13/23 13:31 05:52 WBC 17.3 H 18.1 H RBC 1.95 L D 3.06 L D Hgb 5.8 L* D 9.1 L D Hct 17.3 L* D 26.0 L D MCV 88.7 85.0 MCH 29.7 29.7 MCHC 33.5 35.0 RDW 14.2 14.7 Plt Count 80 L D 78 L MPV Not Reportable Not Reportable Immature Gran % (Auto) Cancelled Neut % (Auto) Cancelled Lymph % (Auto) Cancelled Amelia % (Auto) Cancelled Eos % (Auto) Cancelled Baso % (Auto) Cancelled Lymph # (Auto) Cancelled Amelia # (Auto) Cancelled Eos # (Auto) Cancelled Baso # (Auto) Cancelled Abs Immat Gran (auto) Cancelled Absolute Neuts (auto) Cancelled Absolute Nucleated RBC 0.130 H 0.150 H Nucleated RBC % (auto) 0.8 H 0.8 H Neutrophils % (Manual) 50 Band Neutrophils % 1 L Lymphocytes % (Manual) 20 Atypical Lymphs % (Man) 4 Monocytes % (Manual) 7 Eosinophils % (Manual) 1 Basophils % (Manual) 8 H Metamyelocytes % 1 Myelocytes % 3 Blast Cells % (Manual) 5 Abs Neuts (Manual) 8.8 H Lymphocytes # (Manual) 3.5 Atyp Lymphs # (Manual) 0.7 Monocytes # (Manual) 1.2 Eosinophils # (Manual) 0.2 Basophils # (Manual) 1.4 H Metamyelocytes # 0.2 Myelocytes # 0.5 Blast Cells # 0.9 Platelet Estimate DECREASED Large Platelets PRESENT Plt Morphology Comment NOTED RBC Morphology NOTED Hypochromasia 2+ (15-30) Ovalocytes 1+ (5-14) Smear Path Review Cancelled Sodium 139 139 Potassium 4.0 3.7 Chloride 104 105 Carbon Dioxide 28 26 Anion Gap 11 L 12 BUN 11 12 Creatinine 0.80 0.75 Estim Creat Clear Calc 45.1 48.5 Estimated GFR > 60 > 60 Random Glucose 143 H 87 Calcium 8.8 D 9.1 Blood Type O Positive Antibody Screen NEGATIVE Crossmatch See Detail Discharge Plan Discharge Anticipated Discharge Date/Time: 08/13/23 09:52 Patient Disposition: Xfer SNF Discharge Diagnosis: Acute on chronic anemia Referrals: Burt Juarez MD [Primary Care Provider] - 1 Week Discharge Medications: Continued fexofenadine [Nahed Allergy] 180 mg Tablet 180 mg PO DAILY potassium chloride 20 mEq tablet extended release 20 meq PO DAILY Rx Instructions: with food cyanocobalamin (vitamin B-12) 1,000 mcg tablet 1,000 mcg PO DAILY trazodone 100 mg tablet 100 mg PO BEDTIME acyclovir 400 mg tablet 400 mg PO BID levothyroxine 125 mcg tablet 125 mcg PO DAILY@0600 lorazepam 0.5 mg tablet 0.5 mg PO DAILY PRN (Reason: anxiety) Discharge Orders: Discharge Order (Routine); Ordered 08/13/23 Ordered By: Sarbjit Taylor Diet: Advance to usual diet Activity on Discharge: As tolerated Stand Alone Forms: Patient Portal Discharge page Print Language: [place] Care Plan Goals: You were transfused 2 units of blood with good response. Continue to check your blood levels as scheduled. transfusion as needed. Health Concerns: Read below Plan of Treatment: Read below Assessment: Read below
--- NOTE | 2023-08-13 10:36 | MHC.CM.PN ---
PT REPORTS SHE WAS AT [facility] STR ORAL AND MAXILLOFACIAL SURGERY SHE SAYS PRIOR TO THAT SHE WAS LIVING ALONE AND INDEPENDENT SHE SAYS SHE USES A WALKER TO AMBULATE SHE HAS A HCP AND PCP ON FILE AND VERIFIED PT STATES HER GOAL IS TO RETURN TO THE SNF OBSERVATION NOTICE DELIVERED PT WILL DC BACK TO [facility] TODAY AT 1200 HOURS VIA [employer]
== END 2023-08-13 12:14 | disposition skilled nursing facility (03) ==
LOC: HO.ED 17:08 → HO.EDOVER 17:22 → HO.S3 19:32
PROVIDERS: Admitting Provider Student in an Organized Health Care Education/Training Program; Emergency Provider Emergency Medicine; PCP Internal Medicine Medical Oncology; Visit Provider Student in an Organized Health Care Education/Training Program
DX: D69.6 Thrombocytopenia, unspecified (principal); C92.00 Acute myeloblastic leukemia, not having achieved remission; J44.9 Chronic obstructive pulmonary disease, unspecified; E03.9 Hypothyroidism, unspecified; F39 Unspecified mood [affective] disorder; E46 Unspecified protein-calorie malnutrition; Z51.5 Encounter for palliative care; Z68.1 Body mass index [BMI] 19.9 or less, adult
CPT/HCPCS: 36415; 80048; 85007; 85027; 86850; 86900; 86901; 86923; 96361; 96365; 99221; 99285; J0613; J1642; P9016

== ENCOUNTER → 2023-08-12 17:12 | Outpatient (BNV) | payer MEDICARE, SELFPAY | PROVIDERS: Admitting Provider Student in an Organized Health Care Education/Training Program; Emergency Provider Emergency Medicine; PCP Internal Medicine Medical Oncology; Visit Provider Student in an Organized Health Care Education/Training Program | DX: D69.6 Thrombocytopenia, unspecified (principal); C92.00 Acute myeloblastic leukemia, not having achieved remission | CPT/HCPCS: 99223; 99238 ==

== ENCOUNTER 2023-10-09 15:23 | Inpatient (IN) | payer MEDICARE, SELFPAY ==
[2023-10-09] VITALS (25 sets, daily range): BP systolic 71–125; BP diastolic 34–75; PULSE 82–131; RESP 12–27; TEMP 34.5–40.2; O2SAT 92–100; BMI 18.7; BMI 19.4
--- NOTE | ~2023-10-09 | CT_ITS ---
EXAMINATION: CT CHEST, ABDOMEN AND PELVIS WITHOUT CONTRAST CLINICAL INFORMATION: Fever. Sepsis. Question source of infection. COMPARISON: CT scan of the chest dated 07/19/[address] scan of the abdomen dated 07/20/2023 and several older exams. TECHNIQUE: Multidetector volumetric imaging was performed from the base of the neck through the pubic symphysis. Sagittal and coronal reformatted images were obtained on the technologist workstation. This CT examination was performed using dose optimization techniques as appropriate, variously including the following: *Automated exposure control *Adjustment of mA and/or kV according to patient size (this includes techniques or standardized protocols for targeted exams where dose is matched to indication/reason for exam; i.e. extremities or head) *Use of iterative reconstruction technique DLP: CT scan of the chest: 154 mGy-cm. CT scan of the abdomen: 281 mGy-cm. FINDINGS: CT SCAN OF THE CHEST: LUNGS: Moderate centrilobular and paraseptal emphysema. Biapical pleural-based reticular nodular opacities, consistent with scarring. Interval development of multifocal areas of irregular masslike opacifications in the lungs, most prominently involving the left lung apex (series 6, image 78), where a irregularly marginated 1.9 x 1.6 cm mass is seen with surrounding reticular and groundglass opacities seen. Similar smaller findings are seen in the lingula (series 6, image 142), left lower lobe (series 6, image 362, 404, or 426), right upper lobe (series 6, image 184) and right lower lobe (series 6, image 384 and 409). Findings are suspicious for multifocal infectious or inflammatory nodules. In the appropriate clinical setting, entities such as septic emboli can also be considered the differential. There is associated mild interlobular septal thickening seen in the lower lobes, suggesting mild interstitial pulmonary edema. Diffuse thickening of the small airways is seen. LYMPHOVASCULAR STRUCTURES: Right jugular Port-A-Cath in place with tip in mid SVC. Aortic and heart size normal. No pericardial effusion. The blood volume in the heart appears significantly lower in attenuation compared to the adjacent myometrium, raising the suspicion of anemia. Calcified mediastinal and bilateral hilar lymph nodes again noted, consistent with granulomatous lung disease. No mediastinal, hilar or axillary adenopathy or free fluid collection. Small retrocardiac hiatal hernia. THYROID GLAND: Atrophic and not adequately visualized.. BONES: Anterior lower cervical spine fusion hardware partially imaged. Diffuse osteopenia. Multilevel mild vertebral spondylosis and degenerative disc disease in the upper and mid thoracic spine and mild vertebral spondylosis in lower thoracic spine. No suspicious focal findings. CT SCAN OF THE ABDOMEN AND PELVIS: LIVER, GALLBLADDER, AND BILIARY TREE: The liver is normal in size, shape, and attenuation. No focal hepatic lesion on noncontrast imaging. Portal vein is enlarged. No biliary ductal dilatation is present. The gallbladder is unremarkable with no evidence of radiopaque gallstones, gallbladder wall thickening, or obvious pericholecystic inflammatory changes. PANCREAS: Unremarkable on noncontrast imaging. SPLEEN: Unremarkable on noncontrast imaging. ADRENAL GLANDS: Diffuse hypertrophy of the adrenal glands is noted. KIDNEYS AND URETERS: The kidneys are normal in size, shape, and attenuation. 2.8 cm right mid renal cyst again seen, similar to prior studies, warranting no specific imaging follow-up. No hydronephrosis, hydroureter, or calculi seen. No perinephric stranding. BLADDER: Unremarkable. PELVIC VISCERA: Not adequately seen due to beam hardening artifact related to left hip arthroplasty.. GASTROINTESTINAL TRACT: Small retrocardiac hiatal hernia. There is mild fluid distention of the small bowel loops in the abdomen with scattered air-fluid levels seen. This is a nonspecific finding and may be related to a diffuse gastroenteritis. No evidence of obstruction or perforation. Prominent rectal distention with fecal material is noted. Moderate volume liquid stool is seen in the left colon. The appendix is unremarkable. ABDOMINAL WALL: No significant hernia is appreciated. LYMPH NODES, VASCULAR: Abdominal aorta normal in caliber with severe atherosclerotic calcifications seen extending into the iliofemoral vessels. OSSEOUS STRUCTURES: Left total hip arthroplasty is in place, obscuring assessment of the adjacent tissues in the pelvis. Bilateral L5 pars defects are noted without significant spondylolisthesis. Osteopenia and mild vertebral spondylosis throughout the lumbar spine seen. CT/CT abdomen pelvis wo IV con IMPRESSION: CT scan of the chest: * Interval development of multifocal irregular masslike opacifications in the lungs bilaterally, most prominently involving the left lung apex. Findings are suspicious for multifocal infectious or inflammatory nodules. In the appropriate clinical setting, entities such as septic emboli can also be considered in the differential. * Mild interstitial pulmonary edema is seen. * Calcified mediastinal and hilar lymph nodes, consistent with granulomatous lung disease. CT scan of the abdomen and pelvis: * Mild fluid distention of the small bowel loops with scattered air-fluid levels. This is a nonspecific finding and may be related to a diffuse gastroenteritis. No evidence of obstruction or perforation. * Prominent rectal distention with fecal material moderate volume liquid stool in the left colon noted. * Prominent atherosclerotic vascular disease.
--- NOTE | ~2023-10-09 | XR_ITS ---
EXAMINATION: XR chest 1V CLINICAL INFORMATION: Reason for Exam febrile COMPARISON: 07/25/2023 TECHNIQUE: Single portable frontal view. Tubes and lines: Port-A-Cath in place properly positioned with its tip projecting over the SVC/RA junction unchanged. Lungs and pleura: Lungs are inflated. No evidence of acute infiltrates or failure. Previously described mild parabronchial disease has improved. Heart and mediastinum: The mediastinum is within normal limits.. Bones/soft tissue: Skeletal structures included are normal for patient's age. XR/XR chest 1V IMPRESSION: 1. No radiographic evidence of acute infiltrates or failure. 2. Port-A-Cath remain in place properly positioned.
--- NOTE | ~2023-10-09 | XR_ITS ---
EXAMINATION: XR CHEST CLINICAL INFORMATION: Hypoxia. COMPARISON: October 09, 2023. TECHNIQUE: Frontal view of the chest was obtained. FINDINGS: The cardiomediastinal silhouette is grossly stable. A Mediport is seen in a similar position. There is a large right upper to lower lung field infiltrate. There appears to be blunting of the costophrenic angles with faint basilar possibly layering opacities. The bony structures are osteopenic. The soft tissues are unremarkable. XR/XR chest 1V IMPRESSION: 1. Large right upper to lower lung field infiltrate. Suspect pneumonia. 2. Blunting of the costophrenic angles with faint basilar possibly layering opacities. Suspect small effusions with likely associated atelectasis. Electronically signed by: Aguilar Gannon MD 10/23/2023 03:03 AM EDT
--- NOTE | 2023-10-09 15:45 | PC.NURSE ---
patient arrives via EMS from home, patient reportedly lives in 3 family walk up, friend called 911 after not hearing from her from a few days, patient was found altered and in her own urine at home, hx of cancer. patient initially febrile upon arrival, 104 rectally. patient is alert and oriented x3 however keeps turning on her side and trying to fall asleep. patient is able to tell me her name and birthday, the date and where she is, however she states she does not know why she is here, is unable to tell me ho she has been feeling the last few days, unknown if she has had any fevers or illness recently, unable to tell us when her last chemotherapy treatment was. patient placed on school bus monitor, unwilling to lay flat on her back, occasionally pulling leads off. patient straight catheterization performed, urine sample obtained, 18g IV placed in RAC and left forearm. blood work and other specimens sent to lab. patient medicated per MAR resting on stretcher at this time
--- NOTE | 2023-10-09 15:56 | ED_ITS ---
HPI - General Adult General Chief complaint: Weakness Stated complaint: weakness lethargic Time Seen by Provider: 10/09/23 15:55 History of Present Illness ED Provider: Sophia ALMEIDA narrative: The patient is a 73-year-old woman who was brought to the hospital by ambulance from her apartment. She has a history of acute myeloid leukemia and I believe she is receiving palliative chemotherapy. Apparently she told her neighbors she was not feeling very well. The neighbor called 911. The patient was found to be febrile, weak, somewhat confused, and covered in urine. The patient denies any headache, chest pain, shortness of breath, abdominal pain, nausea, vomiting. She is not sure why she is here. She seems somewhat confused and can not really give much additional history. Related Data Home Medications ?Medication ?Instructions ?Recorded ?Confirmed acyclovir 400 mg tablet 400 mg PO BID 01/31/20 10/10/23 levothyroxine 125 mcg tablet 125 mcg PO DAILY@0600 01/31/20 08/12/23 trazodone 100 mg tablet 100 mg PO BEDTIME 01/31/20 08/12/23 lorazepam 0.5 mg tablet 0.5 mg PO DAILY PRN anxiety 03/01/22 10/10/23 cyanocobalamin (vitamin B-12) 1,000 mcg PO DAILY 02/02/23 10/10/23 1,000 mcg tablet potassium chloride 20 mEq 20 meq PO DAILY 02/02/23 10/10/23 tablet,extended release fexofenadine 180 mg tablet 180 mg PO DAILY 07/10/23 08/12/23 (Nahed Allergy) allopurinol 300 mg tablet 300 mg PO DAILY 10/10/23 10/10/23 decitabine 35 mg-cedazuridine 100 1 tab PO DAILY 10/10/23 10/10/23 mg tablet (Inqovi) nystatin 100,000 unit/mL oral 5 ml PO QID 10/10/23 10/10/23 suspension venetoclax 100 mg tablet See Rx Instructions .Route .COMPLEX 10/10/23 (Venclexta) Allergies Allergy/AdvReac Type Severity Reaction Status Date / Time adhesive tape Allergy Unknown RASH Verified 10/09/23 15:33 bacitracin [Bacitracin] Allergy Unknown RASH Verified 10/09/23 15:33 Review of Systems 2 Review of Systems: Yes all other systems are reviewed and are negative [facility] Past Medical History Medical History (Updated 10/10/23 @ 09:48 by Aramis Josue MD) Acute myeloid leukemia Anemia Thrombocytopenia Gram-positive bacteremia Tobacco dependence Dyspnea COPD (chronic obstructive pulmonary disease) Anemia COPD with asthma Anxiety Depression Non-Hodgkin lymphoma in remission Hypothyroidism Surgical History S/P angiogram of extremity (02/13/20) History of salpingo-oophorectomy H/O: hysterectomy Family History Family History Father CAD (coronary artery disease) Social History Social History Household Members: None Housing: Apartment Do you presently have visiting nurse or other home services: No Unable to assess alcohol history related to: Unable to respond Alcohol intake: never Comment: lalito is being paited , no falling star at this time Patient Tobacco Use Status: Current everyday Tobacco user Tobacco use type: Cigarette Cigarette Packs Per Day: 1 Years Smoked: 40 Smoked in Last 30 Days: Yes e-Cigarette/Vaping Use: Never Used Patient Interested in Nicotine Replacement: No Patient Given Instructions on How to Stop Smoking: No Second Hand Smoke Exposure: No (not interested) Use of substances other than those prescribed or required for medical reasons: No Currently Displaying Signs/Symptoms of Drug Intoxication Withdrawal: No Any prior treatment program specific to substance use: No Do you feel safe in your current relationship?: No Current Relationship Is there a partner from a previous relationship who is making you feel unsafe now?: No Are you made to feel afraid or neglected: No Advance Directives: Yes Advance Directives on File: Yes Advance Directives Date on File: 07/16/21 Do you have a plan to hurt others: No Plan Recently lost weight without trying: No Eating poorly because of decreased appetite: No Nutrition Risks: No Nutritional Risk Patient : No : No Poor oral hygiene: No service: No Current occupational status: retired Physical Exam ED Vital Signs: Vital Signs - 24 hr 10/09/23 15:31 10/09/23 17:05 10/09/23 17:14 Temperature 104.4 F H 102.2 F H Pulse Rate 131 H 117 H Pulse Rate [Monitor] 120 H Respiratory Rate 18 21 H 27 H Blood Pressure 118/51 L 96/47 L Pulse Oximetry 98 99 Oxygen Delivery Method Room Air Room Air Oxygen Flow Rate 10/09/23 17:18 10/09/23 18:15 10/09/23 18:20 Temperature 102.2 F H Pulse Rate 102 H 99 Pulse Rate [Monitor] Respiratory Rate 21 H 25 H Blood Pressure 71/38 L 72/36 L Pulse Oximetry 94 94 Oxygen Delivery Method Room Air Room Air Oxygen Flow Rate 10/09/23 18:26 10/09/23 18:35 10/09/23 18:39 Temperature 98.0 F Pulse Rate 95 94 Pulse Rate [Monitor] Respiratory Rate 15 14 Blood Pressure 80/38 L 78/34 L Pulse Oximetry 93 97 Oxygen Delivery Method Room Air Nasal Cannula Oxygen Flow Rate 2 10/09/23 18:41 10/09/23 19:10 10/09/23 19:14 Temperature 97.6 F 97.4 F Pulse Rate 91 92 92 Pulse Rate [Monitor] Respiratory Rate 16 12 Blood Pressure 86/43 L 89/45 L 86/48 L Pulse Oximetry 95 94 Oxygen Delivery Method Nasal Cannula Nasal Cannula Oxygen Flow Rate 2 2 10/09/23 19:16 10/09/23 19:19 10/09/23 19:28 Temperature Pulse Rate 94 93 92 Pulse Rate [Monitor] Respiratory Rate 16 Blood Pressure 86/48 L 95/54 L 102/54 L Pulse Oximetry 95 Oxygen Delivery Method Nasal Cannula Oxygen Flow Rate 2 BMI result Body Mass Index 18.7 Const Other: The patient is a cachectic 73-year-old. She is awake and alert but seems confused. She looks ill. She does not appear in acute discomfort. HENMT Other: no obvious acute abnormalities to the face or the mouth. The face is symmetrical. Airway is clear. Mucous membranes unremarkable. Posterior pharynx unremarkable. Eyes Other: Pupils are small, round, and equal, conjunctivae are clear, extraocular movements intact. Neck Other: No cervical adenopathy, no nuchal rigidity, no JVD. Resp Effort & Inspection: normal respiratory effort Auscultation: clear to auscultation bilaterally Cardio Rate: tachycardic Rhythm: regular rhythm Heart sounds: S1 normal heart sound present and S2 normal heart sound present GI Other: Abdomen is flat, soft, and does not seem tender. No masses. Skin Other: Skin is pale and dry Neuro Other: the patient is awake but confused. No facial asymmetry. Eye movements normal. No aphasia or dysarthria. Speech content poor. symmetrical tone throughout. Extrem Other: No focal joint abnormality. No peripheral edema. No asymmetry. No tenderness. Medications Administered Generic Name Dose Route Start Last Admin Trade Name Rubina PRN Reason Stop Dose Admin Doxycycline Monohydrate 100 mg 10/09/23 21:00 10/10/23 09:18 Doxycycline Monohydrate 100 Mg Capsule PO 100 mg Q12H COLLINS Administration Norepinephrine Bitartrate 8 mg in 250 mls @ 0 mls/hr 10/09/23 19:00 10/10/23 04:09 Levophed IV 0 mcg/kg/min .Q0M COLLINS 0 mls/hr Titration Protocol Per Protocol Cefepime HCl 2 gm/ Sodium 50 mls @ 100 mls/hr 10/10/23 04:00 10/10/23 04:43 Chloride IV Infused Q12H COLLINS Infusion Albumin Human 100 mls @ 100 mls/hr 10/10/23 08:00 10/10/23 09:06 Kedbumin 25 % IV 10/11/23 02:59 Infused Q6H COLLINS Infusion Metoprolol Tartrate 25 mg 10/10/23 11:45 10/10/23 11:53 Metoprolol Tartrate 25 Mg Tablet PO 25 mg TID COLLINS Administration Protocol Sodium Chloride 3 ml 10/10/23 00:00 10/10/23 08:06 0.9 % Sodium Chloride Flush 3 Ml Syringe IVFLUSH 3 ml QSHIFT COLLINS Administration Discontinued Medications Generic Name Dose Route Start Last Admin Trade Name Rubina PRN Reason Stop Dose Admin Acetaminophen 650 mg 10/09/23 15:44 10/09/23 16:16 Acetaminophen Oral Liquid 650 Mg/20.3 Ml Solution PO 10/09/23 15:45 650 mg ONCE ONE Administration Lactated Ringer's 1,260 mls @ 1,260 mls/hr 10/09/23 15:44 10/09/23 17:18 Lr 30 ml/kg infuse over 1 hr (1260 ml) 10/09/23 16:43 Infused IV Infusion .Q1H ONE Cefepime HCl 2 gm/ Sodium 50 mls @ 100 mls/hr 10/09/23 15:44 10/09/23 17:18 Chloride IV 10/09/23 16:13 Infused ONCE ONE Infusion Lactated Ringer's 500 mls @ 999 mls/hr 10/09/23 17:30 10/09/23 18:25 Lr IV 10/09/23 18:00 Infused .Q31M COLLINS Infusion Sodium Chloride 100 mls @ 100 mls/hr 10/09/23 18:03 10/10/23 00:50 Ns IV 10/09/23 19:02 Infused ONCE ONE Infusion Vancomycin HCl 1,000 mg/ 270 mls @ 270 mls/hr 10/09/23 18:11 10/09/23 19:33 Sodium Chloride IV 10/09/23 19:10 Infused ONCE ONE Infusion Lactated Ringer's 500 mls @ 999 mls/hr 10/09/23 18:30 10/09/23 18:35 Lr IV 10/09/23 19:00 Infused .Q31M COLLINS Infusion Sodium Chloride 100 mls @ 100 mls/hr 10/09/23 18:18 10/10/23 02:34 Ns IV 10/09/23 19:17 Infused ONCE ONE Infusion Lactated Ringer's 500 mls @ 999 mls/hr 10/09/23 18:45 10/09/23 18:56 Lr IV 10/09/23 19:15 Infused .Q31M COLLINS Infusion Albumin Human 100 mls @ 133.333 mls/hr 10/09/23 19:45 10/09/23 22:24 Kedbumin 25 % IV 10/09/23 21:29 Infused Q1H COLLINS Infusion Potassium Chloride 10 meq in 100 mls @ 100 mls/hr 10/10/23 08:00 10/10/23 11:54 Potassium Chloride/H20 IV 10/10/23 11:59 100 mls/hr Q1H COLLINS Administration Sodium Chloride 100 mls @ 100 mls/hr 10/10/23 05:59 10/10/23 11:18 Ns IV 10/10/23 06:58 100 mls/hr ONCE ONE Infusion Medical Decision Making Medical Decision Making MDM Narrative: The patient is a 73-year-old woman who presents with fever and confusion. History is limited. She has AML and I believe she is on palliative chemotherapy. By history no obvious source of fever. By exam no obvious source of fever. Given her risk for febrile neutropenia she was seen promptly and given cefepime promptly. She was ultimately found to be neutropenic and significantly thrombocytopenic. She was also given vancomycin. I discussed the case with the on-call oncologist who recommended 2 units of for pheresed platelets for transfusion. This was ordered. The patient was too confused to consent for herself and I could not reach any healthcare proxy so I signed the consent form on an emergency basis. She was given IV fluids. Her initial lactate was 3.0 indicating possible sepsis. She was initially given 30 milliliters/kilogram of lactated Ringer's. Her blood pressures worsened and she was given additional IV fluids and ultimately we started peripheral norepinephrine. A repeat lactate was higher at 5.3. Given the need for peripheral pressors I consulted the ICU in the patient was admitted to the intensive care unit. Patient seemed to respond to pressors. Lab Data 10/10/23 05:22 10/10/23 05:22 Labs: Lab Results 10/09/23 10/09/23 10/09/23 Range/Units 15:58 16:04 16:07 WBC (4.8-10.8) X10*3/uL RBC (4.20-5.50) X10*6/uL Hgb (12.0-16.0) g/dl Hct (37.0-47.0) % MCV (80.0-98.0) fL MCH (27.0-33.0) pg MCHC (31.0-35.0) g/dl RDW (11.0-16.0) % Plt Count (160-400) X10*3/uL MPV Immature Gran % (Auto) (0.0-0.4) % Neut % (Auto) (45-73) % Lymph % (Auto) (20-40) % [place] % (Auto) (2-11) % Eos % (Auto) (0-4) % Baso % (Auto) (0-2) % Lymph # (Auto) (1.2-4.9) X10*3/uL [place] # (Auto) (0.1-1.2) X10*3/uL Eos # (Auto) (0.0-0.4) X10*3/uL Baso # (Auto) (0.0-0.2) X10*3/uL Abs Immat Gran (auto) (0.00-0.03) X10*3/uL Absolute Neuts (auto) (2.0-8.3) x10*3/uL Absolute Nucleated RBC (0.0-0.012) X10*3/uL Nucleated RBC % (auto) (0.0-0.2) /100WBC Smear Tech's Comments PT 28.8 H D (11.1-13.3) SEC INR 2.4 H (0.9-1.1) VBG pH 7.50 H (7.32-7.43) VBG pCO2 25 mmHg VBG pO2 55 mmHg VBG HCO3 20 L (22-26) mmol/L VBG O2 Saturation 92.0 % VBG Base Excess -1.8 mmol/L Sodium 137 (135-145) mmol/L Potassium 4.0 (3.3-5.1) mmol/L Chloride 103 (96-108) mmol/L Carbon Dioxide 18 L (22-29) mmol/L Anion Gap 20 (12-20) BUN 22 H (9-16) mg/dL Creatinine 0.97 (0.5-1.4) mg/dL Estim Creat Clear Calc 34.2 Estimated GFR 56 Random Glucose 158 H (60-115) mg/dL Lactic Acid 3.0 H* (0.5-2.0) mmol/L Lactic Acid F/U @ 2Hr (0.5-2.0) mmol/L Calcium 9.0 (8.4-10.2) mg/dL Total Bilirubin 1.8 H (0.0-1.0) mg/dL AST 26 (5-31) U/L ALT 21 (0-31) U/L Alkaline Phosphatase 167 H (39-117) U/L Troponin I High Sens 11.7 (<3.5-17.0) ng/L Total Protein 5.6 L (6.5-8.0) g/dL Albumin 3.0 L (3.5-5.0) g/dL Urine Color Dark Yellow Urine Appearance Clear Urine pH 6.0 (5.0-9.0) Ur Specific [place] 1.020 (1.005-1.025) Urine Protein 30 (1+) H (Neg-Trace) mg/dL Urine Glucose (UA) Negative (Negative) mg/dL Urine Ketones Trace (Negative) mg/dL Urine Blood Small (1+) H (Negative) Urine Nitrite Negative (Negative) Ur Leukocyte Esterase Negative (Negative) Urine RBC 11-20 H (0-2) /HPF Urine WBC 0-5 (0-5) /HPF Ur Squamous Epith Cells 0-2 (0-2) /HPF Urine Bacteria None Seen (None Seen) Hyaline Casts 0-2 (0-2) /LPF Influenza Type A (PCR) NEGATIVE (Negative) Influenza Type B (PCR) NEGATIVE (Negative) RSV RNA Qual (PCR) NEGATIVE (Negative) SARS-CoV-2 RNA (RT-PCR) NEGATIVE (Negative) Blood Type Antibody Screen 10/09/23 10/09/23 Range/Units 16:41 18:17 WBC 0.7 L* (4.8-10.8) X10*3/uL RBC 3.04 L (4.20-5.50) X10*6/uL Hgb 9.3 L (12.0-16.0) g/dl Hct 27.3 L (37.0-47.0) % MCV 89.8 (80.0-98.0) fL MCH 30.6 (27.0-33.0) pg MCHC 34.1 (31.0-35.0) g/dl RDW 14.6 (11.0-16.0) % Plt Count 8 L* D (160-400) X10*3/uL MPV Not Reportable Immature Gran % (Auto) 1.4 H (0.0-0.4) % Neut % (Auto) 43.2 L (45-73) % Lymph % (Auto) 41.9 H (20-40) % [place] % (Auto) 10.8 (2-11) % Eos % (Auto) 0.0 (0-4) % Baso % (Auto) 2.7 H (0-2) % Lymph # (Auto) 0.3 L (1.2-4.9) X10*3/uL [place] # (Auto) 0.1 (0.1-1.2) X10*3/uL Eos # (Auto) 0.0 (0.0-0.4) X10*3/uL Baso # (Auto) 0.0 (0.0-0.2) X10*3/uL Abs Immat Gran (auto) 0.01 (0.00-0.03) X10*3/uL Absolute Neuts (auto) 0.3 L (2.0-8.3) x10*3/uL Absolute Nucleated RBC 0.000 (0.0-0.012) X10*3/uL Nucleated RBC % (auto) 0.0 (0.0-0.2) /100WBC Smear Tech's Comments VERIFIED PT (11.1-13.3) SEC INR (0.9-1.1) VBG pH (7.32-7.43) VBG pCO2 mmHg VBG pO2 mmHg VBG HCO3 (22-26) mmol/L VBG O2 Saturation % VBG Base Excess mmol/L Sodium (135-145) mmol/L Potassium (3.3-5.1) mmol/L Chloride (96-108) mmol/L Carbon Dioxide (22-29) mmol/L Anion Gap (12-20) BUN (9-16) mg/dL Creatinine (0.5-1.4) mg/dL Estim Creat Clear Calc Estimated GFR Random Glucose (60-115) mg/dL Lactic Acid (0.5-2.0) mmol/L Lactic Acid F/U @ 2Hr 5.4 H* (0.5-2.0) mmol/L Calcium (8.4-10.2) mg/dL Total Bilirubin (0.0-1.0) mg/dL AST (5-31) U/L ALT (0-31) U/L Alkaline Phosphatase (39-117) U/L Troponin I High Sens (<3.5-17.0) ng/L Total Protein (6.5-8.0) g/dL Albumin (3.5-5.0) g/dL Urine Color Urine Appearance Urine pH (5.0-9.0) Ur Specific [place] (1.005-1.025) Urine Protein (Neg-Trace) mg/dL Urine Glucose (UA) (Negative) mg/dL Urine Ketones (Negative) mg/dL Urine Blood (Negative) Urine Nitrite (Negative) Ur Leukocyte Esterase (Negative) Urine RBC (0-2) /HPF Urine WBC (0-5) /HPF Ur Squamous Epith Cells (0-2) /HPF Urine Bacteria (None Seen) Hyaline Casts (0-2) /LPF Influenza Type A (PCR) (Negative) Influenza Type B (PCR) (Negative) RSV RNA Qual (PCR) (Negative) SARS-CoV-2 RNA (RT-PCR) (Negative) Blood Type O Positive Antibody Screen NEGATIVE Critical Care Time Critical Care Time Critical Care Time: Yes Total Critical Care Time: 35 Attestation: The patient was critically ill with a high probability of imminent or life- threatening deterioration. I spent greater than 30 minutes of discontinuous time evaluating the patient, delivering critical care at the bedside, discussing evaluating data with consultants. Critical care time does not include time spent performing separately billable procedures or teaching. Time spent performing critical care with 35 minutes. Discharge Plan Discharge Clinical Impression: Febrile neutropenia, Septic shock, Thrombocytopenia Patient Disposition: Admitted As Inpatient Interventions: Admission Worksheet (ED) Last Done: 10/09/23 20:25 Discharge Date/Time: 10/09/23 20:25
--- NOTE | 2023-10-09 15:56 | ECG_ITS ---
Test Reason : SEPSIS Blood Pressure : / mmHG Vent. Rate : 130 BPM Atrial Rate : 130 BPM P-R Int : 122 ms QRS Dur : 086 ms QT Int : 284 ms P-R-T Axes : 090 084 077 degrees QTc Int : 417 ms Sinus tachycardia Nonspecific ST and T wave abnormality Abnormal ECG When compared with ECG of 19-JUL-2023 07:23, Premature supraventricular complexes are no longer Present Nonspecific T wave abnormality now evident in Inferior leads Referred By: Hemal Cortes Electronically Signed By:DANIEL RAI
[2023-10-09] MEDS: Acetaminophen Oral Liquid 650 MG/20.3 ML SOLUTION PO (16:16)
[2023-10-09] MEDS: cefEPime HCl 2 GM in 0.9 % Sodium Chloride 50 ML IV (16:17)
[2023-10-09 16:19] LABS: Appearance Urine Clear; Color Urine Dark Yellow; Glucose Urine UA Negative (Negative); Leukocyte Esterase Urine Negative (Negative); Nitrite Urine Negative (Negative); UMIC TRIGGER UACC YES; Urine Blood Small (1+) (Negative); Urine Ketones Trace mg/dL (Negative); Urine Protein 30 (1+) mg/dL (Neg-Trace)
[2023-10-09 16:20] LABS: INTERNATIONAL NORM RATIO 2.4 (0.9-1.1); Prothrombin Time 28.8 SEC (11.1-13.3)
[2023-10-09 16:21] LABS: VBG Base Excess -1.8 mmol/L; VBG HCO3 20 mmol/L (22-26); VBG pCO2 25 mmHg; VBG pO2 55 mmHg
[2023-10-09 16:29] LABS: Troponin-I High Sensitivity 11.7 ng/L (<3.5-17.0)
[2023-10-09 16:30] LABS: Venous Blood Gas Refer to POC result
[2023-10-09 16:30] LABS: Alanine Aminotransferase 21 U/L (0-31); Alkaline Phosphatase 167 U/L (39-117); Anion Gap 20 (12-20); Aspartate Amino Transferase 26 U/L (5-31); Bilirubin Total 1.8 mg/dL (0.0-1.0); Blood Urea Nitrogen 22 mg/dL (9-16); Carbon Dioxide 18 mmol/L (22-29); Chloride 103 mmol/L (96-108); Creatinine Clr Calc Pharmacy 34.2; Estimated Glomerular Filt Rate 56; Glucose Random 158 mg/dL (60-115); Sodium 137 mmol/L (135-145); Total Protein 5.6 g/dL (6.5-8.0)
[2023-10-09 16:46] LABS: Hemoglobin 9.3 g/dl (12.0-16.0); MANUAL DIFF FLAG SCAN; SCAN SMEAR FLAG 1
[2023-10-09 16:47] LABS: Influenza A PCR NEGATIVE (Negative); Influenza B PCR NEGATIVE (Negative); Resp Syncy Virus RNA Qual PCR NEGATIVE (Negative); SARS COV2 PCR INHOUSE NEGATIVE (Negative)
[2023-10-09 16:47] LABS: Basophils Percent Auto 2.7 % (0-2); Hematocrit 27.3 % (37.0-47.0); Imm Gran Abs Auto 0.01 X10*3/uL (0.00-0.03); Imm Gran Pct Auto 1.4 % (0.0-0.4); Lymphocytes Absolute Auto 0.3 X10*3/uL (1.2-4.9); Lymphocytes Percent Auto 41.9 % (20-40); Mean Corpuscular HGB Conc 34.1 g/dl (31.0-35.0); Mean Corpuscular Hemoglobin 30.6 pg (27.0-33.0); Mean Corpuscular Volume 89.8 fL (80.0-98.0); Monocytes Absolute Auto 0.1 X10*3/uL (0.1-1.2); Monocytes Percent Auto 10.8 % (2-11); Neutrophils Absolute Auto 0.3 x10*3/uL (2.0-8.3); Neutrophils Percent Auto 43.2 % (45-73); Red Blood Count 3.04 X10*6/uL (4.20-5.50); Red Cell Distribution Width 14.6 % (11.0-16.0)
[2023-10-09 17:00] LABS: PLT ABN DIST 1; Platelet Count 8 X10*3/uL (160-400); White Blood Count 0.7 X10*3/uL (4.8-10.8)
--- NOTE | 2023-10-09 17:17 | PC.NURSE ---
per MD no more rectal temperatures at this time
[2023-10-09 17:22] LABS: SLIDE REVIEW VERIFIED
[2023-10-09] MEDS: Lactated Ringers 500 ML 999 ML IV ×3 (17:30→18:48)
[2023-10-09 17:39] LABS: Bacteria Urine None Seen (None Seen); Hyaline Casts Urine 0-2 /LPF (0-2); Squamous Epithelial Cell Urine 0-2 /HPF (0-2); WBC Urine 0-5 /HPF (0-5)
--- NOTE | 2023-10-09 17:45 | PC.NURSE ---
per MD when patient has repeat lactic we can draw her type and screen then
[2023-10-09 18:05] LABS: Reflex Lactate? Lactic Acid Added
--- NOTE | 2023-10-09 18:21 | PC.NURSE ---
MD aware of PT blood pressures. patient adjusted in bed, 3rd 18g PIV placed.
[2023-10-09] MEDS: vancomycin HCL 1,000 MG in 0.9 % Sodium Chloride 250 ML 270 MG IV (18:23)
[2023-10-09 18:41] LABS: ~Lactic Acid-LAB USE ONLY 5.4 mmol/L (0.5-2.0)
[2023-10-09] MEDS: Norepinephrine Bitartrate/D5W 8 MG/250 ML PLAST..BAG 3.94 MG IV (19:10)
[2023-10-09] MEDS: Albumin Human 25 % 100 ML 133.33 ML IV ×2 (19:47→21:35)
--- NOTE | 2023-10-09 20:01 | PM.CCHP ---
History of Present Illness Date of Service: 10/09/23 Attending physician on admission: Aramis Josue Chief Complaint: Weakness ?The patient is a 73-year-old female with past medical history of? 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 COPD,? anemia, anxiety and depression who presented to the emergency department via EMS for? weakness.? According to EMS,? patient lives independently,? and she told the risks that she was not feeling well,? and the neighbors called? 911.? She was found febrile, weak, confused and incontinent of urine.? In the ED,? she was febrile to 102.2,? tachycardic to 117, tachypneic to 27, and hypotensive to systolic of 70s.? ?Laboratory data was significant for? WBC 0.7,? absolute neutrophils 0.3, platelets 8, ? PT 28.8, INR 2.4, serum bicarb 18, lactic acid? initially 3 increased to 5.4,? and albumin of 3 IMAGING: ?Chest x-ray:? No acute findings ED COURSE:? ?Patient received a total of 2.3 L bolus,? cefepime 2 g, vancomycin 1000 mg,? and Tylenol. Review of Systems Review of Systems: As per HPI all other systems reviewed and are negative PMFSH Past Medical History Medical History (Updated 10/09/23 @ 20:23 by Delmar Richard NP) Acute myeloid leukemia Anemia Thrombocytopenia Gram-positive bacteremia Tobacco dependence Dyspnea COPD (chronic obstructive pulmonary disease) Anemia COPD with asthma Anxiety Depression Non-Hodgkin lymphoma in remission Hypothyroidism Family History Family History Father CAD (coronary artery disease) Surgical History Surgical History S/P angiogram of extremity (02/13/20) History of salpingo-oophorectomy H/O: hysterectomy Social History Social History Household Members: None Housing: Apartment Do you presently have visiting nurse or other home services: No Unable to assess alcohol history related to: Unable to respond Alcohol intake: never Comment: lalito is being paited , no falling star at this time Patient Tobacco Use Status: Current everyday Tobacco user Tobacco use type: Cigarette Cigarette Packs Per Day: 1 Years Smoked: 40 Smoked in Last 30 Days: Yes e-Cigarette/Vaping Use: Never Used Patient Interested in Nicotine Replacement: No Patient Given Instructions on How to Stop Smoking: No Second Hand Smoke Exposure: No (not interested) Use of substances other than those prescribed or required for medical reasons: No Currently Displaying Signs/Symptoms of Drug Intoxication Withdrawal: No Any prior treatment program specific to substance use: No Do you feel safe in your current relationship?: No Current Relationship Is there a partner from a previous relationship who is making you feel unsafe now?: No Are you made to feel afraid or neglected: No Advance Directives: Yes Advance Directives on File: Yes Advance Directives Date on File: 07/16/21 Do you have a plan to hurt others: No Plan Recently lost weight without trying: No Eating poorly because of decreased appetite: No Nutrition Risks: No Nutritional Risk Patient : No : No Poor oral hygiene: No service: No Current occupational status: retired [employer] Allergies Allergy/AdvReac Type Severity Reaction Status Date / Time adhesive tape Allergy Unknown RASH Verified 10/09/23 15:33 bacitracin [Bacitracin] Allergy Unknown RASH Verified 10/09/23 15:33 Active Medications: Current Medications Norepinephrine Bitartrate (Levophed) 8 mg in 250 mls @ 0 mls/hr IV .Q0M COLLINS; Protocol Last Titration: 10/09/23 19:16 Dose: 0.07 mcg/kg/min, 5.51 mls/hr Cefepime HCl 2 gm/ Sodium (Chloride) 50 mls @ 100 mls/hr IV DAILY COLLINS Albumin Human (Kedbumin 25 %) 100 mls @ 133.333 mls/hr IV Q1H COLLINS Stop: 10/09/23 21:29 Last Admin: 10/09/23 19:47 Dose: 133.33 mls/hr Pharmacy Consult (Consult Rx Vancomycin Dosing) 1 each MISCELLANE DAILY PRN PRN Reason: Consult order Home Medications ?Medication ?Instructions ?Recorded ?Confirmed ?Last Taken ?Type acyclovir 400 mg tablet 400 mg PO BID 01/31/20 08/12/23 08/12/23 History levothyroxine 125 mcg tablet 125 mcg PO DAILY@0600 01/31/20 08/12/23 08/12/23 History trazodone 100 mg tablet 100 mg PO BEDTIME 01/31/20 08/12/23 08/12/23 History lorazepam 0.5 mg tablet 0.5 mg PO DAILY PRN anxiety 03/01/22 08/12/23 02/02/23 History cyanocobalamin (vitamin B-12) 1,000 mcg PO DAILY 02/02/23 08/12/23 08/12/23 History 1,000 mcg tablet potassium chloride 20 mEq 20 meq PO DAILY 02/02/23 08/12/23 08/12/23 History tablet,extended release fexofenadine 180 mg tablet 180 mg PO DAILY 07/10/23 08/12/23 08/12/23 History (Nahed Allergy) allopurinol 300 mg tablet 300 mg PO DAILY 10/10/23 Unknown History nystatin 100,000 unit/mL oral 5 ml PO QID 10/10/23 Unknown History suspension venetoclax 100 mg tablet PO 10/10/23 10/10/23 Unknown History (Venclexta) Physical Exam Vital Signs: Vital Signs: Last Vital Signs Temp 97.4 F 10/09/23 19:14 Pulse 91 10/09/23 19:41 Resp 16 10/09/23 19:19 BP 104/58 L 10/09/23 19:41 Pulse Ox 95 10/09/23 19:19 O2 Del Method Nasal Cannula 10/09/23 19:19 O2 Flow Rate 2 10/09/23 19:19 BMI result Body Mass Index 18.7 Focused assessment performed at 1930 ?General:? Patient is lethargic, alert x person and place. able to answer simple questions. Following commands. ?HEENT:? Head is normocephalic, atraumatic, pupils equal round reactive to light accommodation bilaterally.? Extraocular movements appear intact.? Buccal mucosa is dry, Neck is supple ?Cardiac:? Sinus tachycardia, Clear S1-S2, no murmurs rubs or gallops. ?Pulmonary:? Clear to auscultation, no wheezes, rales or rhonchi. ?Abdomen:? ?Abdomen soft, non-tender, non-distended. Normal bowel sounds. No pulsatile mass. No hepatosplenomegaly. ?Musculoskeletal:? Moving all 4 extremities upon request a major joints, there is no crepitus or tenderness.? The strength is 5/5 bilaterally and throughout all 4 extremities.? Gait not assessed at this point. ?Neurologic:? No focal deficits noted.Motor strength as above.?? ?Skin:? Left knee one singular erythema miltiforme, Scattered bruises No ulcers. Vascular:? 2+ pulses upper and lower extremities distally.? Results Labs 10/10/23 05:22 10/10/23 05:22 Labs: Laboratory Results - last 24 hr 10/09/23 10/09/23 10/09/23 15:58 16:04 16:07 MCV MCH MCHC RDW Plt Count MPV Immature Gran % (Auto) Neut % (Auto) Lymph % (Auto) [place] % (Auto) Eos % (Auto) Baso % (Auto) Lymph # (Auto) [place] # (Auto) Eos # (Auto) Baso # (Auto) Abs Immat Gran (auto) Absolute Neuts (auto) Absolute Nucleated RBC Nucleated RBC % (auto) Smear Tech's Comments PT 28.8 H D INR 2.4 H VBG pH 7.50 H VBG pCO2 25 VBG pO2 55 VBG HCO3 20 L VBG O2 Saturation 92.0 VBG Base Excess -1.8 Anion Gap 20 Estim Creat Clear Calc 34.2 Estimated GFR 56 Random Glucose 158 H Lactic Acid 3.0 H* Lactic Acid F/U @ 2Hr Calcium 9.0 Total Bilirubin 1.8 H AST 26 ALT 21 Alkaline Phosphatase 167 H Troponin I High Sens 11.7 Total Protein 5.6 L Albumin 3.0 L Urine Color Dark Yellow Urine Appearance Clear Urine pH 6.0 Ur Specific [place] 1.020 Urine Protein 30 (1+) H Urine Glucose (UA) Negative Urine Ketones Trace Urine Blood Small (1+) H Urine Nitrite Negative Ur Leukocyte Esterase Negative Urine RBC 11-20 H Urine WBC 0-5 Ur Squamous Epith Cells 0-2 Urine Bacteria None Seen Hyaline Casts 0-2 Influenza Type A (PCR) NEGATIVE Influenza Type B (PCR) NEGATIVE RSV RNA Qual (PCR) NEGATIVE SARS-CoV-2 RNA (RT-PCR) NEGATIVE Blood Type Antibody Screen 10/09/23 10/09/23 16:41 18:17 MCV 89.8 MCH 30.6 MCHC 34.1 RDW 14.6 Plt Count 8 L* D MPV Not Reportable Immature Gran % (Auto) 1.4 H Neut % (Auto) 43.2 L Lymph % (Auto) 41.9 H [place] % (Auto) 10.8 Eos % (Auto) 0.0 Baso % (Auto) 2.7 H Lymph # (Auto) 0.3 L [place] # (Auto) 0.1 Eos # (Auto) 0.0 Baso # (Auto) 0.0 Abs Immat Gran (auto) 0.01 Absolute Neuts (auto) 0.3 L Absolute Nucleated RBC 0.000 Nucleated RBC % (auto) 0.0 Smear Tech's Comments VERIFIED PT INR VBG pH VBG pCO2 VBG pO2 VBG HCO3 VBG O2 Saturation VBG Base Excess Anion Gap Estim Creat Clear Calc Estimated GFR Random Glucose Lactic Acid Lactic Acid F/U @ 2Hr 5.4 H* Calcium Total Bilirubin AST ALT Alkaline Phosphatase Troponin I High Sens Total Protein Albumin Urine Color Urine Appearance Urine pH Ur Specific [place] Urine Protein Urine Glucose (UA) Urine Ketones Urine Blood Urine Nitrite Ur Leukocyte Esterase Urine RBC Urine WBC Ur Squamous Epith Cells Urine Bacteria Hyaline Casts Influenza Type A (PCR) Influenza Type B (PCR) RSV RNA Qual (PCR) SARS-CoV-2 RNA (RT-PCR) Blood Type O Positive Antibody Screen NEGATIVE Imaging Radiologist's Impressions: Impressions Chest X-Ray 10/09/23 16:40 IMPRESSION: 1. No radiographic evidence of acute infiltrates or failure. 2. Port-A-Cath remain in place properly positioned. Assessment and Plan (1) Septic shock: Status: Acute (2) Thrombocytopenia: Status: Acute (3) Febrile neutropenia: Status: Acute (4) Acute myeloid leukemia: Status: Acute (5) Pancytopenia: Status: Acute Plan ?73-year-old female with past medical history of? 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 COPD,? anemia, anxiety and depression? admitted to ICU for septic shock and neutropenic fever Neuro:?? ?No acute issues Cardiac: ?Septic shock:? patient has neutropenic fever,? pancytopenia, thrombocytopenia,? elevated lactic acidosis,? unsure what is a cause of the infection.? Chest x-ray does not show any acute infection.? Urine is negative for UTI.? No ulcers, but patient has one singular erythema multiforme on left knee .? will obtain? a chest CT and? abdominal CT. Will obatins tick panel and full respiratory panel.? on Levophed.? Wean off Levophed as tolerated.? Continue cefepime and vancomycin. Will add doxycycline Pulmonary:? ?No acute issues Renal:?? ?No acute issues Endo:? No acute issues.?? GI:? no acute issues ID:? ?Septic shock:? unsure of the source,? cultures are pending. ? Please see cardiac plan ? Heme/Onc:?? ?Acute myeloid? leukemia with pancytopenia,? neutropenic fever and thrombocytopenia.? Oncology was consulted by ED physician,? who recommended? antibiotic coverage in 2 units of platelets.? No evidence of bleeding.? Cont? Empiric? vancomycin, cefepime and doxycycline until ? infectious source is located and cultures resulted. Repeat cbc post transfusion? Psych:? No acute issues. Miscellaneous:? no acute issues Prophylaxis: Pneumatic boots due to thrombocytopenia CODE: DNI.Confirmed with MOLST form from 07/28/23 Critical care time:? x60 minutes of critical care time ? Case discussed with attending Dr. Josue
--- NOTE | 2023-10-09 20:19 | PHA.PROG ---
Admission Date/Time: October 09, 2023 19:35 Indication: Sepsis Weight in k kg Adjusted body weight in Kg: [place] body weight in Kg: Obesity Dosing Indication % IBW: BMI 18.7 Serum Creatinine - Last 168 Hours 10/09/23 15:58 Creatinine 0.97 Estimated CrCl and GFR - Last 168 Hours 10/09/23 15:58 Estim Creat Clear Calc 34.2 Estimated GFR 56 Vancomycin Loading Dose: 1000 x1 Current Vancomycin Dosing Regimen: 750mg Q24H Vancomycin Monitoring using AUC goal of 400 - 600 range with trough as surrogate marker: 439 Date and Time for next Vancomycin Level to be drawn: 10/10 @1700 Pharmacist Comments on Vancomycin Plan: Patient weight is very low and renal function 34.2 mL/min, started at 750mg to see how she does after one dose and to be adjusted based on SCr and trough on 10/10. Vancomycin dosing will take advantage of [employer] as a clinical decision support tool that uses Bayesian modeling to calculate individual patient's pharmacokinetic parameters and forecast the patient's drug concentration time course with the target goal AUC 24 range of 400 - 600 mg/L/hr.
[2023-10-09 20:21] LABS: Reflex Lactate? 2 Y
[2023-10-09 21:31] LABS: ~Lactic Acid-LAB USE ONLY 1.4 mmol/L (0.5-2.0)
[2023-10-09] MEDS: Doxycycline Monohydrate 100 MG CAPSULE PO (21:33)
--- NOTE | 2023-10-09 22:21 | HO.SKINPHOTO ---
Location: Left Knee Category: Stage: Length: Width: Depth: cm
[2023-10-09] MEDS: 0.9 % Sodium Chloride Flush 3 ML SYRINGE IVFLUSH (23:26)
[2023-10-10] VITALS (26 sets, daily range): BP systolic 99–143; BP diastolic 45–83; PULSE 89–142; RESP 15–35; TEMP 34.8–36.7; O2SAT 85–100; BMI 19.5
[2023-10-10] MEDS: cefEPime HCl 2 GM in 0.9 % Sodium Chloride 50 ML IV ×2 (04:10→15:52)
[2023-10-10 05:30] LABS: MANUAL DIFF FLAG NO
[2023-10-10 05:35] LABS: VBG HCO3 26 mmol/L (22-26); VBG pCO2 35 mmHg; VBG pH 7.48 (7.32-7.43); VBG pO2 46 mmHg
[2023-10-10 05:35] LABS: Mean Platelet Volume 9.4 fL (9.4-12.3); Neutrophils Absolute Auto 0.1 x10*3/uL (2.0-8.3); SCAN SMEAR FLAG 1
[2023-10-10 05:36] LABS: Basophils Percent Auto 3.6 % (0-2); Hematocrit 22.3 % (37.0-47.0); Hemoglobin 7.5 g/dl (12.0-16.0); Lymphocytes Absolute Auto 0.1 X10*3/uL (1.2-4.9); Mean Corpuscular HGB Conc 33.6 g/dl (31.0-35.0); Mean Corpuscular Volume 89.2 fL (80.0-98.0); Monocytes Percent Auto 7.1 % (2-11); Neutrophils Percent Auto 39.3 % (45-73); Red Cell Distribution Width 14.7 % (11.0-16.0)
[2023-10-10 05:40] LABS: INTERNATIONAL NORM RATIO 2.6 (0.9-1.1); Prothrombin Time 31.1 SEC (11.1-13.3)
[2023-10-10 05:51] LABS: Alanine Aminotransferase 20 U/L (0-31); Albumin Level 3.2 g/dL (3.5-5.0); Alkaline Phosphatase 108 U/L (39-117); Anion Gap 18 (12-20); Aspartate Amino Transferase 25 U/L (5-31); Bilirubin Total 1.5 mg/dL (0.0-1.0); Blood Urea Nitrogen 22 mg/dL (9-16); Calcium 8.4 mg/dL (8.4-10.2); Carbon Dioxide 20 mmol/L (22-29); Chloride 107 mmol/L (96-108); Creatinine Clr Calc Pharmacy 41.7; Estimated Glomerular Filt Rate > 60; Glucose Random 214 mg/dL (60-115); Magnesium 1.8 mg/dL (1.6-2.6); Phosphorus 3.9 mg/dL (2.7-4.5); Potassium 3.1 mmol/L (3.3-5.1); Sodium 142 mmol/L (135-145); Total Protein 5.1 g/dL (6.5-8.0)
[2023-10-10 05:54] LABS: Venous Blood Gas Refer to POC result
[2023-10-10 05:57] LABS: Platelet Count 28 X10*3/uL (160-400)
[2023-10-10 05:58] LABS: White Blood Count 0.3 X10*3/uL (4.8-10.8)
--- NOTE | 2023-10-10 07:05 | PC.NURSE ---
Patient was admitted from the ED at 2034. Patient's rectal temp on arrival to unit was 94.9 rectally, unable to obtain oral temp, provider notified and okayed rectal temperatures. Patient was placed on a dixie hugger and remained on the dixie hugger throughout the shift. Patient with multiple loose stools.
[2023-10-10] MEDS: Albumin Human 25 % 100 ML IV ×3 (08:03→22:00)
[2023-10-10] MEDS: 0.9 % Sodium Chloride Flush 3 ML SYRINGE IVFLUSH ×2 (08:06→22:00)
[2023-10-10] MEDS: Doxycycline Monohydrate 100 MG CAPSULE PO ×2 (09:18→21:59)
[2023-10-10] MEDS: Potassium Chloride/H20 10 MEQ/100 ML PIGGYBACK 100 MEQ IV ×4 (09:19→12:54)
--- NOTE | 2023-10-10 09:46 | P.PNCC_ITS ---
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 Patient started on broad-spectrum antibiotics and admitted to the intensive care unit. No events overnight. Titrated off pressors. Critical Care Time (minutes): 60 Physical Exam 2 Vital Signs: Vital Signs: Last Vital Signs Temp 97.6 F 10/10/23 08:10 Pulse 114 H 10/10/23 09:00 Resp 29 H 10/10/23 09:00 BP 114/65 10/10/23 09:00 Pulse Ox 91 L 10/10/23 09:00 O2 Del Method Nasal Cannula 10/10/23 09:00 O2 Flow Rate 2 10/10/23 09:00 BMI result Body Mass Index 19.5 Const: General: no acute distress, alert and awake Eyes: Sclerae: sclerae normal EOM: EOMs intact bilaterally Neck: Neck: Yes no lymphadenopathy, Yes trachea midline and Yes supple Resp: Effort & Inspection: normal respiratory effort and no respiratory distress Auscultation: crackles (Bilateral) Cardio: Rate: tachycardic Rhythm: regular rhythm Heart sounds: no gallops, no murmurs and no rubs GI: Palpation (GI): Soft to palpation and Other GI palpation findings present ( Nontender) Auscultation: normal bowel sounds Extrem: General: Yes no pedal edema, No clubbing and No cyanosis Objective Data Labs 10/10/23 05:22 10/10/23 05:22 Labs: Laboratory Results - last 24 hr 10/09/23 10/09/23 10/09/23 15:58 16:04 16:07 WBC RBC Hgb Hct MCV MCH MCHC RDW Plt Count MPV Immature Gran % (Auto) Neut % (Auto) Lymph % (Auto) Fisher % (Auto) Eos % (Auto) Baso % (Auto) Lymph # (Auto) Fisher # (Auto) Eos # (Auto) Baso # (Auto) Abs Immat Gran (auto) Absolute Neuts (auto) Absolute Nucleated RBC Nucleated RBC % (auto) Smear Tech's Comments PT 28.8 H D INR 2.4 H VBG pH 7.50 H VBG pCO2 25 VBG pO2 55 VBG HCO3 20 L VBG O2 Saturation 92.0 VBG Base Excess -1.8 Sodium 137 Potassium 4.0 Chloride 103 Carbon Dioxide 18 L Anion Gap 20 BUN 22 H Creatinine 0.97 Estim Creat Clear Calc 34.2 Estimated GFR 56 Random Glucose 158 H Lactic Acid 3.0 H* Lactic Acid F/U @ 2Hr Lactic Acid F/U @ 4Hr Calcium 9.0 Phosphorus Magnesium Total Bilirubin 1.8 H AST 26 ALT 21 Alkaline Phosphatase 167 H Troponin I High Sens 11.7 Total Protein 5.6 L Albumin 3.0 L Urine Color Dark Yellow Urine Appearance Clear Urine pH 6.0 Ur Specific [place] 1.020 Urine Protein 30 (1+) H Urine Glucose (UA) Negative Urine Ketones Trace Urine Blood Small (1+) H Urine Nitrite Negative Ur Leukocyte Esterase Negative Urine RBC 11-20 H Urine WBC 0-5 Ur Squamous Epith Cells 0-2 Urine Bacteria None Seen Hyaline Casts 0-2 Respiratory Panel Gar Adenovirus (Rapid PCR) B.pert (TEM-PCR) B.parapertussis DNA PCR C. pneumoniae DNA (PCR) Coronavirus OC43 (PCR) Coronavirus HKU1 (PCR) Coronavirus 229E (PCR) Coronavirus NL63 (PCR) Human Metapneumovir PCR Influenza A (RT-PCR) Influenza Type A (PCR) NEGATIVE Influenza B (RT-PCR) Influenza Type B (PCR) NEGATIVE M. pneumoniae (PCR) Parainfluenza 1 (PCR) Parainfluenza 2 (PCR) Parainfluenza 3 (PCR) Parainfluenza 4 (PCR) RSV (PCR) RSV RNA Qual (PCR) NEGATIVE Entero/Rhino (PCR) SARS-CoV-2 RNA (RT-PCR) NEGATIVE Blood Type Antibody Screen 10/09/23 10/09/23 10/09/23 16:41 18:17 21:08 WBC 0.7 L* RBC 3.04 L Hgb 9.3 L Hct 27.3 L MCV 89.8 MCH 30.6 MCHC 34.1 RDW 14.6 Plt Count 8 L* D MPV Not Reportable Immature Gran % (Auto) 1.4 H Neut % (Auto) 43.2 L Lymph % (Auto) 41.9 H Fisher % (Auto) 10.8 Eos % (Auto) 0.0 Baso % (Auto) 2.7 H Lymph # (Auto) 0.3 L Fisher # (Auto) 0.1 Eos # (Auto) 0.0 Baso # (Auto) 0.0 Abs Immat Gran (auto) 0.01 Absolute Neuts (auto) 0.3 L Absolute Nucleated RBC 0.000 Nucleated RBC % (auto) 0.0 Smear Tech's Comments VERIFIED PT INR VBG pH VBG pCO2 VBG pO2 VBG HCO3 VBG O2 Saturation VBG Base Excess Sodium Potassium Chloride Carbon Dioxide Anion Gap BUN Creatinine Estim Creat Clear Calc Estimated GFR Random Glucose Lactic Acid Lactic Acid F/U @ 2Hr 5.4 H* Lactic Acid F/U @ 4Hr 1.4 Calcium Phosphorus Magnesium Total Bilirubin AST ALT Alkaline Phosphatase Troponin I High Sens Total Protein Albumin Urine Color Urine Appearance Urine pH Ur Specific [place] Urine Protein Urine Glucose (UA) Urine Ketones Urine Blood Urine Nitrite Ur Leukocyte Esterase Urine RBC Urine WBC Ur Squamous Epith Cells Urine Bacteria Hyaline Casts Respiratory Panel Gar Adenovirus (Rapid PCR) B.pert (TEM-PCR) B.parapertussis DNA PCR C. pneumoniae DNA (PCR) Coronavirus OC43 (PCR) Coronavirus HKU1 (PCR) Coronavirus 229E (PCR) Coronavirus NL63 (PCR) Human Metapneumovir PCR Influenza A (RT-PCR) Influenza Type A (PCR) Influenza B (RT-PCR) Influenza Type B (PCR) M. pneumoniae (PCR) Parainfluenza 1 (PCR) Parainfluenza 2 (PCR) Parainfluenza 3 (PCR) Parainfluenza 4 (PCR) RSV (PCR) RSV RNA Qual (PCR) Entero/Rhino (PCR) SARS-CoV-2 RNA (RT-PCR) Blood Type O Positive Antibody Screen NEGATIVE 10/10/23 10/10/23 10/10/23 02:55 05:22 05:26 WBC 0.3 L* RBC 2.50 L Hgb 7.5 L Hct 22.3 L MCV 89.2 MCH 30.0 MCHC 33.6 RDW 14.7 Plt Count 28 L D MPV 9.4 Immature Gran % (Auto) 0.0 Neut % (Auto) 39.3 L Lymph % (Auto) 50.0 H Fisher % (Auto) 7.1 Eos % (Auto) 0.0 Baso % (Auto) 3.6 H Lymph # (Auto) 0.1 L Fisher # (Auto) 0.0 L Eos # (Auto) 0.0 Baso # (Auto) 0.0 Abs Immat Gran (auto) 0.00 Absolute Neuts (auto) 0.1 L Absolute Nucleated RBC 0.000 Nucleated RBC % (auto) 0.0 Smear Tech's Comments PT 31.1 H INR 2.6 H VBG pH 7.48 H VBG pCO2 35 VBG pO2 46 VBG HCO3 26 VBG O2 Saturation 82.0 VBG Base Excess 3.0 Sodium 142 Potassium 3.1 L D Chloride 107 Carbon Dioxide 20 L Anion Gap 18 BUN 22 H Creatinine 0.82 Estim Creat Clear Calc 41.7 Estimated GFR > 60 Random Glucose 214 H Lactic Acid Lactic Acid F/U @ 2Hr Lactic Acid F/U @ 4Hr Calcium 8.4 D Phosphorus 3.9 Magnesium 1.8 Total Bilirubin 1.5 H AST 25 ALT 20 Alkaline Phosphatase 108 Troponin I High Sens Total Protein 5.1 L Albumin 3.2 L Urine Color Urine Appearance Urine pH Ur Specific [place] Urine Protein Urine Glucose (UA) Urine Ketones Urine Blood Urine Nitrite Ur Leukocyte Esterase Urine RBC Urine WBC Ur Squamous Epith Cells Urine Bacteria Hyaline Casts Respiratory Panel Gar Cancelled Adenovirus (Rapid PCR) Cancelled B.pert (TEM-PCR) Cancelled B.parapertussis DNA PCR Cancelled C. pneumoniae DNA (PCR) Cancelled Coronavirus OC43 (PCR) Cancelled Coronavirus HKU1 (PCR) Cancelled Coronavirus 229E (PCR) Cancelled Coronavirus NL63 (PCR) Cancelled Human Metapneumovir PCR Cancelled Influenza A (RT-PCR) Cancelled Influenza Type A (PCR) Influenza B (RT-PCR) Cancelled Influenza Type B (PCR) M. pneumoniae (PCR) Cancelled Parainfluenza 1 (PCR) Cancelled Parainfluenza 2 (PCR) Cancelled Parainfluenza 3 (PCR) Cancelled Parainfluenza 4 (PCR) Cancelled RSV (PCR) Cancelled RSV RNA Qual (PCR) Entero/Rhino (PCR) Cancelled SARS-CoV-2 RNA (RT-PCR) Cancelled Blood Type Antibody Screen Microbiology Microbiology Results: Microbiology 10/09/23 15:59 Blood - Venous Blood Culture - Preliminary Prelim: GNR Gram Stain only 10/09/23 15:58 Blood - Venous Blood Culture - Preliminary Prelim: GNR Gram Stain only Progress Note: A&P Assessment and plan (1) Pancytopenia: Status: Acute (2) Febrile neutropenia: Status: Acute (3) Gram-negative bacteremia: Status: Acute (4) Acute myeloid leukemia: Status: Acute (5) COPD (chronic obstructive pulmonary disease): Status: Acute Plan Assessment: 73-year-old lady with AML on palliative chemotherapy admitted with septic shock with Gram-negative bacteremia with likely pulmonary source on the background of neutropenia requiring pressor support Plan: Neuro: No acute issues. Cardiac: Septic shock, resolved, titrated off pressor support. Pulmonary: No acute issues. Renal: No acute issues. Endo: No acute issues. GI: No acute issues. ID: Septic shock secondary to gram-negative bacteremia with likely pulmonary source on the background neutropenia secondary to chemotherapy for underlying AML. Continue broad-spectrum antibiotics. Heme/Onc: Pancytopenia with neutropenia secondary to chemotherapy for underlying AML. Psych: No acute issues. Miscellaneous: No acute issues. Prophylaxis: Pneumatic compression Diet: Neutropenic Critical care time spent: 60 minute Quality Stroke Does the patient have a stroke diagnosis?: No VTE Prior VTE?: No VTE Risk Level:: Medical - moderate - high VTE Device Contraindication: N/A - Device Ordered VTE Drug Contraindication: Treatment Not Indicated
--- NOTE | 2023-10-10 10:29 | PHA.MEDREC ---
Pharmacy Consult ? Medication Reconciliation Pharmacy has completed the medication reconciliation. Patient in ICU Unable to speak too. called primary contact Mario to try to confirm med list . Mario was absolutely no help. The only thing and knows she is on is cancer medication but he doesn't know the names or where she gets it delivered from . He said Call her pcp to get medication she is on because i couldn't tell you anything . Called [facility] pharmacy and they confirm most of patients medication. [facility] confirmed Inqovi 35-100 mg 1 po daily for 5 days followed by 23 days off medication, last fill date 09-30-23, Pharmacy also confirmed Levothroxine 125 mcg daily and trazadone 100 mg at bedtime, however last fill dates are 06-27-23 for 30 day supply. So, I left unconfirmed. Called [facility] specialty pharmacy and they confirmed Venclexta titrate dose of 100 mg daily for 1 day, then 200 mg daily for 1 day, then 400 mg daily for 12 days was delivered to patient 09-13-23, however the dose was modified 09-23-23 but waiting on the DrEvelyn to change. so, not sure of the dose she should be on now, left unconfirmed.
[2023-10-10] MEDS: Metoprolol Tartrate 25 MG TABLET PO (11:53)
[2023-10-10 11:55] LABS: Adenovirus PCR Not Detected (Not Detect.); Bordetella parapertussis PCR Not Detected (Not Detect.); Bordetella pertussis PCR Not Detected (Not Detect.); Chlamydia pneumoniae PCR Not Detected (Not Detect.); Coronavirus 229E PCR Not Detected (Not Detect.); Coronavirus HKU1 PCR Not Detected (Not Detect.); Coronavirus NL63 PCR Not Detected (Not Detect.); Coronavirus OC43 PCR Not Detected (Not Detect.); Human metapneumovirus PCR Not Detected (Not Detect.); Influenza A PCR Not Detected (Not Detect.); Influenza B PCR Not Detected (Not Detect.); Mycoplasma pneumoniae PCR Not Detected (Not Detect.); Parainfluenza 1 PCR Not Detected (Not Detect.); Parainfluenza 2 PCR Not Detected (Not Detect.); Parainfluenza 3 PCR Detected (Not Detect.); Parainfluenza 4 PCR Not Detected (Not Detect.); RSV PCR Not Detected (Not Detect.); Rhino/Enterovirus PCR Not Detected (Not Detect.)
[2023-10-10 12:42] LABS: SARS-CoV-2 PCR Not Detected (Not Detect.)
--- NOTE | 2023-10-10 14:15 | MHC.CM.PN ---
CM attempted to meet w/pt x2: sleeping: call placed to pt's HCPCrystal who states pt is very independent, private and stoic. She has no services or DME and lives on the 3rd floor. Her ex spouse lives below her and assists prn. Pt drives self to MD appointments and Crystal assists w/transportation as well. New referral made for [facility] states either her or Mario (ex spouse) will transport pt to home. HCP/MOLST on file. CM to follow
--- NOTE | 2023-10-10 16:12 | PM.EVENT ---
Event Note Date of Service: 10/10/23 Event Note: Pt seen and examined, vitals, labs and meds reviewd. 73-year-old female with a PMH significant for acute myeloid leukemia on oral chemotherapy, COPD, and HLD who presents to the ED after outpatient labs noted a platelet level of 5. She was admitted through the ICU with septic shock,pancytopenia, Neutropenic and has gram negative angelina bacteremi and likely PNA. Presently on Vancomycin, Cefepime and Doxyc. She is afebrile now, Blood pressure is better, Hyoxic but better on oxymask. WBC is 0.3 and ANC is 0.. Continue present Abx, follow culture sensitivity. ID consult. Granix daily until WBC 1K per oncology, discussed with Dr. Juarez. Overall poor prognosis Time Spent With Patient Time: Total time managing care of this patient today ____ minutes.
[2023-10-10] MEDS: Tbo-Filgrastim 300 MCG/0.5 ML SYRINGE SUBCUT (18:16)
[2023-10-10] MEDS: Cyanocobalamin (Vitamin B-12) 1,000 MCG TABLET 1000 MCG PO (18:32)
[2023-10-10] MEDS: vancomycin HCL 750 MG in 0.9 % Sodium Chloride 250 ML 265 MG IV (18:32)
[2023-10-10] MEDS: Potassium Chloride ER 20 MEQ TAB.ER.PRT PO (18:32)
[2023-10-10] MEDS: allopurinoL 300 MG TABLET PO (18:32)
--- NOTE | 2023-10-10 18:35 | PM.HEMONCCN ---
Subjective - Subjective Chief complaint: acute leukemia Patient: known to practice within the last 3 years Consult date: 10/10/23 Primary Care Provider: Burt Juarez MD HPI - Consult Narrative Reason for consult: septic shock Narrative: Merline Srinivasan is a 73 year old female from [place] with acute myeloid leukemia [place] [facility] [place]. She is treated at [facility] lately with palliative hydroxyurea. She is admitted with pancytopenia and septic shock to the ICU and has been stabilized. Review of Systems - Constitutional Reports anorexia, Reports fatigue, Reports weakness - ENT Reports system reviewed and no additional complaints, except as documented - Cardiovascular Reports excessive sweating, Reports fast heart rate, Reports lightheadedness - Respiratory Reports chest congestion, Reports dyspnea - Gastrointestinal Reports nausea - Genitourinary Reports urinary incontinence - Musculoskeletal Reports muscle weakness - Neurologic Reports confusion [facility] Medical History: Medical History (Last Updated 10/09/23 @ 20:23 by Delmar Richard NP) Acute myeloid leukemia Anemia Anemia Anxiety COPD (chronic obstructive pulmonary disease) COPD with asthma Depression Dyspnea Gram-positive bacteremia Hypothyroidism Non-Hodgkin lymphoma in remission Thrombocytopenia Tobacco dependence Family History: Family History (Last Reviewed 08/19/23 @ 00:16 by Mary Alice Alfaro MD) Father CAD (coronary artery disease) Surgical History: Surgical History (Last Reviewed 08/19/23 @ 00:16 by Mary Alice Alfaro MD) H/O: hysterectomy History of salpingo-oophorectomy S/P angiogram of extremity Onset Date: 02/13/20 Social History: Social History (Last Reviewed 08/19/23 @ 00:16 by Mary Alice Alfaro MD) Living Situation History: Household Members: None Housing: Apartment Do you presently have visiting nurse or other home services: No Alcohol History: Unable to assess alcohol history related to: Unable to respond Alcohol History Details: 1. How often do you have a drink containing alcohol?: a. Never 3. How often do you have six or more drinks on one occasion?: a. Never AUDIT-C Alcohol total score: 0 Currently Displaying Signs/Symptoms of Alcohol Withdrawal: No Tobacco History: Patient Tobacco Use Status: Current everyday Tobacco Tobacco use type: Cigarette Cigarette Packs Per Day: 1 Years Smoked: 40 Smoked in Last 30 Days: Yes e-Cigarette/Vaping Use: Never Used Patient Interested in Nicotine Replacement: No Patient Given Instructions on How to Stop Smoking: No Second Hand Smoke Exposure: No Second Hand Smoke Exposure comment: not interested Substance Use History: Use of substances other than those prescribed or required for medical reasons: No Currently Displaying Signs/Symptoms of Drug Intoxication Withdrawal: No Any prior treatment program specific to substance use: No Domestic Abuse History: Do you feel safe in your current relationship?: No Current Relationship Is there a partner from a previous relationship who is making you feel unsafe now?: No Are you made to feel afraid or neglected: No Advance Directives: Advance Directives: Yes Advance Directives on File: Yes Advance Directives Date on File: 07/16/21 Homicidal Assessment: Do you have a plan to hurt others: No Plan Nutrition Assessment: Recently lost weight without trying: No Eating poorly because of decreased appetite: No Nutrition Risks: No Nutritional Risk Patient : No : No Poor oral hygiene: No Occupation Assessmet: service: No Current occupational status: retired Home Medications and Allergies Current Medications: Current Medications Acyclovir (Acyclovir 200 Mg Capsule) 400 mg PO BID [facility] Allopurinol (Allopurinol 300 Mg Tablet) 300 mg PO DAILY [facility] Cyanocobalamin (Cyanocobalamin (Vitamin B-12) 1,000 Mcg Tablet) 1,000 mcg PO DAILY [facility] Doxycycline Monohydrate (Doxycycline Monohydrate 100 Mg Capsule) 100 mg PO Q12H [facility] Last Admin: 10/10/23 09:18 Dose: 100 mg Cefepime HCl 2 gm/ Sodium (Chloride) 50 mls @ 100 mls/hr IV Q12H [facility] Last Infusion: 10/10/23 16:32 Dose: Infused Vancomycin HCl 750 mg/ Sodium (Chloride) 265 mls @ 265 mls/hr IV Q24H [facility] Albumin Human (Kedbumin 25 %) 100 mls @ 100 mls/hr IV Q6H [facility] Stop: 10/11/23 02:59 Last Infusion: 10/10/23 15:05 Dose: Infused Lorazepam (Lorazepam 0.5 Mg Tablet) 0.5 mg PO DAILY PRN PRN Reason: anxiety Pharmacy Consult (Consult Rx Vancomycin Dosing) 1 each MISCELLANE DAILY PRN PRN Reason: Consult order Potassium Chloride (Potassium Chloride Er 20 Meq Tab.Er.Prt) 20 meq PO DAILY [facility] Sodium Chloride (0.9 % Sodium Chloride Flush 3 Ml Syringe) 3 ml IVFLUSH QSHIFT [facility] Last Admin: 10/10/23 16:02 Dose: Not Given Tbo-Filgrastim (Tbo-Filgrastim 300 Mcg/0.5 Ml Syringe) 300 mcg SUBCUT DAILY [facility] Last Admin: 10/10/23 18:16 Dose: 300 mcg Home Medications ?Medication ?Instructions ?Recorded ?Confirmed ?Type acyclovir 400 mg tablet 400 mg PO BID 01/31/20 10/10/23 History levothyroxine 125 mcg tablet 125 mcg PO DAILY@0600 01/31/20 08/12/23 History trazodone 100 mg tablet 100 mg PO BEDTIME 01/31/20 08/12/23 History lorazepam 0.5 mg tablet 0.5 mg PO DAILY PRN anxiety 03/01/22 10/10/23 History cyanocobalamin (vitamin B-12) 1,000 mcg PO DAILY 02/02/23 10/10/23 History 1,000 mcg tablet potassium chloride 20 mEq 20 meq PO DAILY 02/02/23 10/10/23 History tablet,extended release fexofenadine 180 mg tablet 180 mg PO DAILY 07/10/23 08/12/23 History (Nahed Allergy) allopurinol 300 mg tablet 300 mg PO DAILY 10/10/23 10/10/23 History decitabine 35 mg-cedazuridine 100 1 tab PO DAILY 10/10/23 10/10/23 History mg tablet (Inqovi) nystatin 100,000 unit/mL oral 5 ml PO QID 10/10/23 10/10/23 History suspension venetoclax 100 mg tablet See Rx Instructions .Route .COMPLEX 10/10/23 History (Venclexta) Allergies Allergy/AdvReac Type Severity Reaction Status Date / Time adhesive tape Allergy Unknown RASH Verified 10/09/23 15:33 bacitracin [Bacitracin] Allergy Unknown RASH Verified 10/09/23 15:33 Physical Exam Vital signs: Vital Signs Temp 97.6 F 10/10/23 16:00 Pulse 98 10/10/23 16:00 Resp 33 H 10/10/23 16:00 BP 102/67 10/10/23 16:00 Pulse Ox 100 10/10/23 16:00 O2 Del Method Oxymask 10/10/23 16:00 O2 Flow Rate 8 10/10/23 16:00 Intake & Output 10/09/23 10/10/23 10/10/23 18:59 06:59 18:59 Intake Total 2810 / 4185.428 1375.428 / 4185.428 1149.000 / 1149.000 Output Total 375 / 375 100 / 100 Balance 2810 / 3810.428 1000.428 / 3810.428 1049.000 / 1049.000 Urine Output (Average ml/kg/hr) 0.47 0.19 Intake: Intake, Oral Amount 120 / 120 120 / 120 Intake (Blood Product) Amount 622 / 622 279 / 279 Plt Aph Pas Pathreduced(E8342) 325 / 325 Unit [id number] Plt Aph Pas Pathreduced(E8343) 297 / 297 Unit [id number] Thawed Plasma (E2720) Unit 279 / 279 [id number] Intake, IV Amount 2810 / 3443.428 633.428 / 3443.428 750.000 / 750.000 0.9 % Sodium Chloride 100 ml @ 90 / 90 100.000 / 100.000 100 mls/hr IV ONCE ONE Rx#: [id number] Albumin Human 25 % 100 ml @ 100 200 / 200 200 / 200 mls/hr IV Q6H [facility] Rx#: [id number] Lactated Ringers 1,260 ml @ 1260 / 1260 1260 mls/hr IV .Q1H ONE Rx#: [id number] Lactated Ringers 500 ml @ 999 1500 / 1500 mls/hr IV .Q31M [facility] Rx#: [id number] Norepinephrine Bitartrate/D5W 8 23.428 / 23.428 0 / 0 mg In 250 ml @ Per Protocol IV .Q0M [facility] Rx#:[id number] Potassium Chloride/H20 10 meq 400 / 400 In 100 ml @ 100 mls/hr IV Q1H [facility] Rx#:[id number] cefEPime HCl 2 gm In 0.9 % 50 / 100 50 / 100 50 / 50 Sodium Chloride 50 ml @ 100 mls /hr IV Q12H [facility] Rx#:[id number] vancomycin HCL 1,000 mg In 0.9 270 / 270 % Sodium Chloride 250 ml @ 270 mls/hr IV ONCE ONE Rx#: [id number] Output: Output, Urine Amount 250 / 250 100 / 100 Output, Post Void Residual 125 / 125 Amount Other: Meal Refused No NPO No Number of Incontinent Voids 2 Number of Unmeasured Voids 1 Number of Bowel Movements 1 Urine Bedside Commode Urine Color Surekha Surekha Last Bowel Movement 10/10/23 10/10/23 Stool Incontinent Stool Amount Moderate Stool Color Brown Stool Consistency Liquid Weight 42 kg 43.9 kg [place] Weight in Grams 35926 Weight 43.9 kg - Constitutional Present: cachectic - Routine HEENT Exam Head: Present: atraumatic, normal inspection Eye: Present: EOMI ENT: Present: mucous membranes moist - Routine Neck Exam Present: supple - Routine Respiratory Exam Present: decreased breath sounds - Routine Cardiovascular Exam Cardiovascular: Present: RRR, tachycardia - Routine Abdominal Exam Present: nontender - Routine Extremities Exam Present: nontender (mediport right chest wall) Hem/Onc Consult Result - Labs CBC & Chem 7: 10/10/23 05:22 10/10/23 05:22 Labs: Short CBC 10/10/23 Range/Units 05:22 WBC 0.3 L* (4.8-10.8) X10*3/uL Hgb 7.5 L (12.0-16.0) g/dl Hct 22.3 L (37.0-47.0) % Plt Count 28 L D (160-400) X10*3/uL BMP 10/10/23 05:22 Sodium 142 Potassium 3.1 L D Chloride 107 Carbon Dioxide 20 L BUN 22 H Creatinine 0.82 Calcium 8.4 D Liver Function 10/10/23 Range/Units 05:22 Total Bilirubin 1.5 H (0.0-1.0) mg/dL AST 25 (5-31) U/L ALT 20 (0-31) U/L Alkaline Phosphatase 108 (39-117) U/L Albumin 3.2 L (3.5-5.0) g/dL Assessment and Plan Patient Active problem list reviewed?: Yes (1) Acute myeloid leukemia Status: Acute Assessment and plan: She will need an ID consult, growth factor and blood product support, broad spectrum antibiotics and neutropenic precautions. I will follow daily. - Time Spent With Patient Time Spent with Patient (in minutes): 20
[2023-10-10] MEDS: Acyclovir 200 MG CAPSULE 400 MG PO (21:59)
[2023-10-10] MEDS: LORazepam 0.5 MG TABLET PO (22:05)
[2023-10-11] VITALS (8 sets, daily range): BP systolic 97–119; BP diastolic 47–66; PULSE 97–107; RESP 18–20; TEMP 36.1–37.4; O2SAT 96–100
[2023-10-11] MEDS: Albumin Human 25 % 100 ML IV (03:24)
[2023-10-11] MEDS: cefEPime HCl 2 GM in 0.9 % Sodium Chloride 50 ML IV ×2 (06:55→16:11)
--- NOTE | 2023-10-11 07:05 | HO.PM.IMPN ---
Subjective Subjective Date of Service: 10/11/23 Interval History: f/u on septic shock d/t gram negative bacteremia, neurotpenia, pna, acute hypoxic resp failure interval history: no sob, cough is better, wbc still low Physical Exam Vital Signs: Vital Signs: Last Vital Signs Temp 97.7 F 10/11/23 04:00 Pulse 98 10/11/23 04:00 Resp 20 10/11/23 04:00 BP 111/66 10/11/23 04:00 Pulse Ox 100 10/11/23 04:00 O2 Del Method Oxymask 10/11/23 04:00 O2 Flow Rate 7 10/11/23 04:00 BMI result Body Mass Index 19.5 Const: Other: General: AO X 3, no acute distress Resp: CTA bilateral CVS: S1,S2,RRR GI: +BS, NT, no distention Skin: No rash Neuro: motor grossly intact Psych: appropriate affect Objective Data Active Medications Acyclovir (Acyclovir 200 Mg Capsule) 400 mg PO BID COUNTS INCLUDE 234 BEDS AT THE [facility] Last Admin: 10/10/23 21:59 Dose: 400 mg Documented By: JOANA Allopurinol (Allopurinol 300 Mg Tablet) 300 mg PO DAILY COUNTS INCLUDE 234 BEDS AT THE [facility] Last Admin: 10/10/23 18:32 Dose: 300 mg Documented By: MADALYN Cyanocobalamin (Cyanocobalamin (Vitamin B-12) 1,000 Mcg Tablet) 1,000 mcg PO DAILY COUNTS INCLUDE 234 BEDS AT THE [facility] Last Admin: 10/10/23 18:32 Dose: 1,000 mcg Documented By: MADALYN Doxycycline Monohydrate (Doxycycline Monohydrate 100 Mg Capsule) 100 mg PO Q12H COUNTS INCLUDE 234 BEDS AT THE [facility] Last Admin: 10/10/23 21:59 Dose: 100 mg Documented By: JOANA Cefepime HCl 2 gm/ Sodium (Chloride) 50 mls @ 100 mls/hr IV Q12H COUNTS INCLUDE 234 BEDS AT THE [facility] Last Admin: 10/11/23 06:55 Dose: 100 mls/hr Documented By: JOANA Vancomycin HCl 750 mg/ Sodium (Chloride) 265 mls @ 265 mls/hr IV Q24H COUNTS INCLUDE 234 BEDS AT THE [facility] Last Infusion: 10/11/23 03:25 Dose: Infused Documented By: JOANA Lorazepam (Lorazepam 0.5 Mg Tablet) 0.5 mg PO DAILY PRN PRN Reason: anxiety Last Admin: 10/10/23 22:05 Dose: 0.5 mg Documented By: JOANA Pharmacy Consult (Consult Rx Vancomycin Dosing) 1 each MISCELLANE DAILY PRN PRN Reason: Consult order Potassium Chloride (Potassium Chloride Er 20 Meq Tab.Er.Prt) 20 meq PO DAILY COUNTS INCLUDE 234 BEDS AT THE [facility] Last Admin: 10/10/23 18:32 Dose: 20 meq Documented By: MADALYN Sodium Chloride (0.9 % Sodium Chloride Flush 3 Ml Syringe) 3 ml IVFLUSH QSHIFT COUNTS INCLUDE 234 BEDS AT THE [facility] Last Admin: 10/10/23 22:00 Dose: 3 ml Documented By: JOANA Tbo-Filgrastim (Tbo-Filgrastim 300 Mcg/0.5 Ml Syringe) 300 mcg SUBCUT DAILY COUNTS INCLUDE 234 BEDS AT THE [facility] Last Admin: 10/10/23 18:16 Dose: 300 mcg Documented By: MADALYN Labs 10/11/23 07:02 10/11/23 07:02 Labs: Laboratory Results - last 24 hr 10/09/23 10/10/23 10/10/23 18:17 02:55 09:51 Respiratory Panel Gar Cancelled See Note Adenovirus (Rapid PCR) Cancelled Not Detected B.pert (TEM-PCR) Cancelled Not Detected B.parapertussis DNA PCR Cancelled Not Detected C. pneumoniae DNA (PCR) Cancelled Not Detected Coronavirus OC43 (PCR) Cancelled Not Detected Coronavirus HKU1 (PCR) Cancelled Not Detected Coronavirus 229E (PCR) Cancelled Not Detected Coronavirus NL63 (PCR) Cancelled Not Detected Human Metapneumovir PCR Cancelled Not Detected Influenza A (RT-PCR) Cancelled Not Detected Influenza B (RT-PCR) Cancelled Not Detected M. pneumoniae (PCR) Cancelled Not Detected Parainfluenza 1 (PCR) Cancelled Not Detected Parainfluenza 2 (PCR) Cancelled Not Detected Parainfluenza 3 (PCR) Cancelled Detected A Parainfluenza 4 (PCR) Cancelled Not Detected RSV (PCR) Cancelled Not Detected Entero/Rhino (PCR) Cancelled Not Detected SARS-CoV-2 RNA (RT-PCR) Cancelled Not Detected Blood Type O Positive Antibody Screen NEGATIVE Microbiology Microbiology Results: Microbiology 10/10/23 07:16 Blood Culture - Preliminary Blood - Venous Prelim: GNR Gram Stain only 10/09/23 15:59 Blood Culture - Preliminary Blood - Venous Prelim: GNR Gram Stain only 10/09/23 15:58 Blood Culture - Preliminary Blood - Venous Prelim: GNR Gram Stain only Assessment and Plan (1) Gram-negative bacteremia: Status: Acute (2) Pancytopenia: Status: Acute (3) Acute myeloid leukemia: Status: Acute (4) Septic shock: Status: Acute (5) Thrombocytopenia: Status: Acute Plan 73/F with acute myeloid leukemia on oral paliative chemotherapy, complicated by pancytopenia, COPD, and HLD, She was admitted through the ICU with septic shock ,pancytopenia, Neutropenic and has gram negative angelina bacteremi and PNA. Presently on Vancomycin, Cefepime and Doxyc. Septic shock due to gram negative bacteremia-required vasopressors in icu -BCx 10/08 and GNR, sensitivity pending -continue Cefepime, Vanco, Doxyc -ID consult Neutropenia--no fever, WBC 0.2, ANC 0 -Granix daily until WBC 1K per onc -oncology consult Acute hypoxic respiratory failure d/t PNA, + parainflueze -O2 to keep sat 88 to 94 Pancytopenia d/t AML, chemo -transfuse platlet if < 10 and RBC for Hgb < 7 COPD--no excacerbation continue inhalers Hypothyroidism on levothyroxine -check tsh Mood disorder/anxiety -ativan PRN moderate Protein calorie malnutrition -ensure supplement DNI Poor prognosis compression device for DVT need for inpt: septic shock, bacteremia, neutropenina on IV Abx, cultures pending, not able to do this safely in outpatient setting Quality Stroke Does the patient have a stroke diagnosis?: No VTE Prior VTE?: No VTE Risk Level:: Medical - moderate - high VTE Device Contraindication: N/A - Device Ordered VTE Drug Contraindication: Treatment Not Indicated
[2023-10-11 07:12] LABS: Lymphocytes Absolute Auto 0.1 X10*3/uL (1.2-4.9); Lymphocytes Percent Auto 47.6 % (20-40); MANUAL DIFF FLAG SCAN; Mean Corpuscular HGB Conc 33.3 g/dl (31.0-35.0); Mean Corpuscular Hemoglobin 30.4 pg (27.0-33.0); Mean Corpuscular Volume 91.3 fL (80.0-98.0); Mean Platelet Volume 9.5 fL (9.4-12.3); Monocytes Percent Auto 9.5 % (2-11); Neutrophils Absolute Auto 0.1 x10*3/uL (2.0-8.3); Neutrophils Percent Auto 42.9 % (45-73); SCAN SMEAR FLAG 1
[2023-10-11 07:13] LABS: VBG Base Excess -0.5 mmol/L; VBG HCO3 25 mmol/L (22-26); VBG pCO2 47 mmHg; VBG pH 7.32 (7.32-7.43); VBG pO2 59 mmHg
[2023-10-11 07:15] LABS: Venous Blood Gas Refer to POC result
--- NOTE | 2023-10-11 07:25 | PC.NURSE ---
Patient alert to name she is soft spoken and hard of hearing. Oxymask in place no respiratory distress noted vitals stable throughout the night , patient lung sounds are diminished intermittent weak non productive cough. Droplet precaution initiated and maintained. Patient turn and reposition in bed ,cream applied to buttock, purewick in place for incontinence. Call acosta present , bed alarm on . Please see [facility] for more details.
[2023-10-11 07:30] LABS: White Blood Count 0.2 X10*3/uL (4.8-10.8)
[2023-10-11 07:31] LABS: NRBC Pct Auto 14.3 /100WBC (0.0-0.2); Platelet Count 12 X10*3/uL (160-400)
[2023-10-11 07:42] LABS: Alanine Aminotransferase 190 U/L (0-31); Albumin Level 4.2 g/dL (3.5-5.0); Alkaline Phosphatase 72 U/L (39-117); Anion Gap 20 (12-20); Aspartate Amino Transferase 489 U/L (5-31); Bilirubin Total 1.5 mg/dL (0.0-1.0); Blood Urea Nitrogen 35 mg/dL (9-16); Calcium 8.7 mg/dL (8.4-10.2); Carbon Dioxide 20 mmol/L (22-29); Chloride 104 mmol/L (96-108); Creatinine Clr Calc Pharmacy 38.3; Estimated Glomerular Filt Rate > 60; Glucose Random 170 mg/dL (60-115); Magnesium 1.9 mg/dL (1.6-2.6); Phosphorus 3.6 mg/dL (2.7-4.5); Potassium 4.8 mmol/L (3.3-5.1); Sodium 139 mmol/L (135-145)
[2023-10-11 08:35] LABS: SLIDE REVIEW VERIFIED
--- NOTE | 2023-10-11 08:40 | MHC.IC ---
Patient positive for parainfluenza - also neutropenic
[2023-10-11] MEDS: Acyclovir 200 MG CAPSULE 400 MG PO ×2 (08:55→20:21)
[2023-10-11] MEDS: Cyanocobalamin (Vitamin B-12) 1,000 MCG TABLET 1000 MCG PO (08:55)
[2023-10-11] MEDS: 0.9 % Sodium Chloride Flush 3 ML SYRINGE IVFLUSH ×3 (08:55→23:37)
[2023-10-11] MEDS: Potassium Chloride ER 20 MEQ TAB.ER.PRT PO (08:55)
[2023-10-11] MEDS: Doxycycline Monohydrate 100 MG CAPSULE PO ×2 (08:55→20:21)
[2023-10-11] MEDS: allopurinoL 300 MG TABLET PO (08:55)
[2023-10-11] MEDS: Tbo-Filgrastim 300 MCG/0.5 ML SYRINGE SUBCUT (11:56)
[2023-10-11 17:31] LABS: Vancomycin Random 11.6 mcg/mL (15-20)
[2023-10-11] MEDS: vancomycin HCL 1,000 MG in 0.9 % Sodium Chloride 250 ML 270 MG IV (18:43)
[2023-10-11 22:29] LABS: A. Phagocytphilium DNA,RT-PCR NOT DETECTED (NOT DETECTED); Babesia Microti DNA, RT-PCR NOT DETECTED (NOT DETECTED); Borrelia Miyamotoi,DNA RT-PCR NOT DETECTED (NOT DETECTED); E.Chaffeensis DNA RT-PCR NOT DETECTED (NOT DETECTED); Lyme(Borrelia ssp)DNA RT-PCR NOT DETECTED (NOT DETECTED)
--- NOTE | 2023-10-11 23:41 | P.CNID_ITS ---
History of Present Illness Data of Consult Service Date: 10/11/23 Requesting physician: Cameron Norman Primary Care Provider: Burt Juarez MD HPI Reason for consult: sepsis She presents with weakness and fever and incontinence. She has AML and is on pallitive chemotherapy. I had seen her earlier with right sided pneumonia. She has some confusion as well. Review of Systems 2 Review of Systems: Yes Unobtainable due to mental status PMFSH Past Medical History Medical History Acute myeloid leukemia Anemia Thrombocytopenia Gram-positive bacteremia Tobacco dependence Dyspnea COPD (chronic obstructive pulmonary disease) Anemia COPD with asthma Anxiety Depression Non-Hodgkin lymphoma in remission Hypothyroidism Family History Family History Father CAD (coronary artery disease) Family history: reviewed and not pertinent Surgical History Surgical History S/P angiogram of extremity (02/13/20) History of salpingo-oophorectomy H/O: hysterectomy Social History Social History Household Members: None Housing: Apartment Do you presently have visiting nurse or other home services: No Unable to assess alcohol history related to: Unable to respond Alcohol intake: never Comment: lalito is being paited , no falling star at this time Patient Tobacco Use Status: Current everyday Tobacco user Tobacco use type: Cigarette Cigarette Packs Per Day: 1 Years Smoked: 40 Smoked in Last 30 Days: Yes e-Cigarette/Vaping Use: Never Used Patient Interested in Nicotine Replacement: No Patient Given Instructions on How to Stop Smoking: No Second Hand Smoke Exposure: No (not interested) Use of substances other than those prescribed or required for medical reasons: No Currently Displaying Signs/Symptoms of Drug Intoxication Withdrawal: No Any prior treatment program specific to substance use: No Do you feel safe in your current relationship?: No Current Relationship Is there a partner from a previous relationship who is making you feel unsafe now?: No Are you made to feel afraid or neglected: No Advance Directives: Yes Advance Directives on File: Yes Advance Directives Date on File: 07/16/21 Do you have a plan to hurt others: No Plan Recently lost weight without trying: No Eating poorly because of decreased appetite: No Nutrition Risks: No Nutritional Risk Patient : No : No Poor oral hygiene: No service: No Current occupational status: retired Meds Allergies Allergy/AdvReac Type Severity Reaction Status Date / Time adhesive tape Allergy Unknown RASH Verified 10/09/23 15:33 bacitracin [Bacitracin] Allergy Unknown RASH Verified 10/09/23 15:33 Active Medications: Current Medications Acyclovir (Acyclovir 200 Mg Capsule) 400 mg PO BID [facility] Last Admin: 10/11/23 20:21 Dose: 400 mg Allopurinol (Allopurinol 300 Mg Tablet) 300 mg PO DAILY [facility] Last Admin: 10/11/23 08:55 Dose: 300 mg Cyanocobalamin (Cyanocobalamin (Vitamin B-12) 1,000 Mcg Tablet) 1,000 mcg PO DAILY [facility] Last Admin: 10/11/23 08:55 Dose: 1,000 mcg Doxycycline Monohydrate (Doxycycline Monohydrate 100 Mg Capsule) 100 mg PO Q12H [facility] Last Admin: 10/11/23 20:21 Dose: 100 mg Cefepime HCl 2 gm/ Sodium (Chloride) 50 mls @ 100 mls/hr IV Q12H [facility] Last Infusion: 10/11/23 17:06 Dose: Infused Vancomycin HCl 1,000 mg/ (Sodium Chloride) 270 mls @ 270 mls/hr IV Q24H [facility] Last Infusion: 10/11/23 23:03 Dose: Infused Lorazepam (Lorazepam 0.5 Mg Tablet) 0.5 mg PO DAILY PRN PRN Reason: anxiety Last Admin: 10/10/23 22:05 Dose: 0.5 mg Pharmacy Consult (Consult Rx Vancomycin Dosing) 1 each MISCELLANE DAILY PRN PRN Reason: Consult order Potassium Chloride (Potassium Chloride Er 20 Meq Tab.Er.Prt) 20 meq PO DAILY [facility] Last Admin: 10/11/23 08:55 Dose: 20 meq Sodium Chloride (0.9 % Sodium Chloride Flush 3 Ml Syringe) 3 ml IVFLUSH QSHIFT [facility] Last Admin: 10/11/23 23:37 Dose: 3 ml Tbo-Filgrastim (Tbo-Filgrastim 300 Mcg/0.5 Ml Syringe) 300 mcg SUBCUT DAILY [facility] Last Admin: 10/11/23 11:56 Dose: 300 mcg Home Medications ?Medication ?Instructions ?Recorded ?Confirmed ?Last Taken ?Type acyclovir 400 mg tablet 400 mg PO BID 01/31/20 10/10/23 08/12/23 History levothyroxine 125 mcg tablet 125 mcg PO DAILY@0600 01/31/20 08/12/23 08/12/23 History trazodone 100 mg tablet 100 mg PO BEDTIME 01/31/20 08/12/23 08/12/23 History lorazepam 0.5 mg tablet 0.5 mg PO DAILY PRN anxiety 03/01/22 10/10/23 02/02/23 History cyanocobalamin (vitamin B-12) 1,000 mcg PO DAILY 02/02/23 10/10/23 08/12/23 History 1,000 mcg tablet potassium chloride 20 mEq 20 meq PO DAILY 02/02/23 10/10/23 08/12/23 History tablet,extended release fexofenadine 180 mg tablet 180 mg PO DAILY 07/10/23 08/12/23 08/12/23 History (Nahed Allergy) allopurinol 300 mg tablet 300 mg PO DAILY 10/10/23 10/10/23 Unknown History decitabine 35 mg-cedazuridine 100 1 tab PO DAILY 10/10/23 10/10/23 Unknown History mg tablet (Inqovi) nystatin 100,000 unit/mL oral 5 ml PO QID 10/10/23 10/10/23 Unknown History suspension venetoclax 100 mg tablet See Rx Instructions .Route .COMPLEX 10/10/23 Unknown History (Venclexta) Physical Exam 2 Vital Signs: Vital Signs: Last Vital Signs Temp 98 F 10/11/23 19:08 Pulse 102 H 10/11/23 19:08 Resp 18 10/11/23 19:08 BP 97/47 L 10/11/23 19:08 Pulse Ox 100 10/11/23 19:08 O2 Del Method Nasal Cannula 10/11/23 19:08 O2 Flow Rate 4 10/11/23 19:08 BMI result Body Mass Index 19.5 Const: General: cooperative HEENT: Head: Yes normal to inspection Face and sinus: Yes normal facial exam Mouth: Normal oral and palatal mucosa present Teeth and gingiva: d entition normal Eyes: General: appearance normal, both eyes and all related structures P upils: Equal, round and reactive pupils present Resp: Effort & Inspection: normal respiratory effort Cardio: Rate: regular rate Rhythm: regular rhythm GI: Palpation (GI): Soft to palpation and nontender : General: Yes no CVA tenderness Back/Spine/Pelvis: Back: no CVA tenderness Skin: General skin exam: no rashes or lesions noted Neuro: General: moves all extremities Cranial nerves: Yes Equal, round and reactive pupils present Extrem: General: Yes normal to inspection Psych: Other: somnolent Appearance: grossly normal Results Labs 10/11/23 07:02 10/11/23 07:02 Labs: Short CBC 10/11/23 Range/Units 07:02 WBC 0.2 L* (4.8-10.8) X10*3/uL Hgb 7.0 L* (12.0-16.0) g/dl Hct 21.0 L* (37.0-47.0) % Plt Count 12 L* D (160-400) X10*3/uL BMP 10/11/23 07:02 Sodium 139 Potassium 4.8 D Chloride 104 Carbon Dioxide 20 L BUN 35 H Creatinine 0.89 Calcium 8.7 Liver Function 10/11/23 Range/Units 07:02 Total Bilirubin 1.5 H (0.0-1.0) mg/dL AST 489 H (5-31) U/L ALT 190 H (0-31) U/L Alkaline Phosphatase 72 (39-117) U/L Albumin 4.2 (3.5-5.0) g/dL Microbiology Microbiology Results: Microbiology 10/10/23 07:16 Blood - Venous Blood Culture - Preliminary Prelim: GNR Gram Stain only 10/09/23 15:59 Blood - Venous Blood Culture - Preliminary Gram negative angelina 10/09/23 15:58 Blood - Venous Blood Culture - Preliminary Gram negative angelina Assessment and Plan (1) Gram-negative bacteremia: Status: Acute (2) Pancytopenia: Status: Acute (3) Acute myeloid leukemia: Status: Acute (4) Septic shock: Status: Acute (5) Thrombocytopenia: Status: Acute Plan She has septic shock related to gram negative sepsis. CT abdomen and pelvis as well as urinalysis appear unremarkable for infection. She has some granulomatous lung infection and some densities and possibly lung infection such as Pseudomonas cause of gram negative bacteremia Would continue Merem Await final culture blood.
[2023-10-12] VITALS (15 sets, daily range): BP systolic 76–140; BP diastolic 40–82; PULSE 103–149; RESP 16–24; TEMP 35.9–36.6; O2SAT 92–100
[2023-10-12] MEDS: LORazepam 0.5 MG TABLET PO (02:34)
[2023-10-12] MEDS: Lactated Ringers 1,000 ML 999 ML IV ×2 (04:30→06:35)
--- NOTE | 2023-10-12 06:35 | PM.EVENT ---
Event Note Date of Service: 10/12/23 Event Note: RN reported hypotension. Patient asymptomatic. Given 1L LR bolus. Blood pressure continues to be low despite 1 L crystalloid bolus. Will order additional litre of LR and closely monitor. Also obtaining CBC, CMP, lactic acid and troponin. Low threshold to transfer to ICU for possible pressor needs. Will sign out to day team. Time Spent With Patient Time: Total time managing care of this patient today ____ minutes.
[2023-10-12 06:58] LABS: Creatinine Clr Calc Pharmacy 41.7; Estimated Glomerular Filt Rate > 60
[2023-10-12 07:20] LABS: Mean Corpuscular HGB Conc 34.2 g/dl (31.0-35.0); Mean Corpuscular Hemoglobin 30.7 pg (27.0-33.0); Mean Corpuscular Volume 89.9 fL (80.0-98.0); Mean Platelet Volume 13.1 fL (9.4-12.3); Red Blood Count 1.79 X10*6/uL (4.20-5.50); Red Cell Distribution Width 14.7 % (11.0-16.0)
[2023-10-12] MEDS: Albumin Human 25 % 100 ML IV ×3 (07:21→11:28)
[2023-10-12 07:32] LABS: White Blood Count 0.2 X10*3/uL (4.8-10.8)
[2023-10-12 07:33] LABS: Hematocrit 16.1 % (37.0-47.0); Hemoglobin 5.5 g/dl (12.0-16.0); Platelet Count 5 X10*3/uL (160-400)
[2023-10-12 07:36] LABS: Vancomycin Random 18.2 mcg/mL (15-20)
--- NOTE | 2023-10-12 08:14 | PC.NURSE ---
Patient's blood pressure at 0400 was 80/48. Dr. Nuñez notified, 1L of LR ordered, following the bolus BP rechecked and was 76/48. Dr. Nuñez updated and an additional LR bolus , Albumin infusion , and lab work ordered. Patient A&O x2, answering questions appropriately . Stating she was feeling okay . LS / crackles in bases, on 4L O2 NC , O2 sats in the high 90's. Sinus tach on quality assurance monitor final. Patient in supine position, labwork pending. Report given to day shift RN .
--- NOTE | 2023-10-12 08:23 | ECG_ITS ---
Test Reason : new afib Blood Pressure : / mmHG Vent. Rate : 136 BPM Atrial Rate : 000 BPM P-R Int : 000 ms QRS Dur : 076 ms QT Int : 334 ms P-R-T Axes : 000 073 081 degrees QTc Int : 502 ms Atrial fibrillation with rapid ventricular response Abnormal ECG When compared with ECG of 09-OCT-2023 15:58, Atrial fibrillation has replaced Sinus rhythm Non-specific change in ST segment in Inferior leads Referred By: Cameron Norman Electronically Signed By:DANIEL RAI
[2023-10-12] MEDS: 0.9 % Sodium Chloride Flush 3 ML SYRINGE IVFLUSH ×2 (08:47→15:40)
[2023-10-12 09:14] LABS: Alanine Aminotransferase 106 U/L (0-31); Albumin Level 3.1 g/dL (3.5-5.0); Alkaline Phosphatase 97 U/L (39-117); Anion Gap 15 (12-20); Aspartate Amino Transferase 110 U/L (5-31); Bilirubin Total 1.4 mg/dL (0.0-1.0); Blood Urea Nitrogen 38 mg/dL (9-16); Calcium 8.5 mg/dL (8.4-10.2); Carbon Dioxide 19 mmol/L (22-29); Chloride 108 mmol/L (96-108); Creatinine Clr Calc Pharmacy 42.7; Estimated Glomerular Filt Rate > 60; Glucose Random 137 mg/dL (60-115); Sodium 138 mmol/L (135-145); Total Protein 4.6 g/dL (6.5-8.0); Troponin-I High Sensitivity 49.1 ng/L (<3.5-17.0)
[2023-10-12] MEDS: Tbo-Filgrastim 300 MCG/0.5 ML SYRINGE SUBCUT (09:24)
--- NOTE | 2023-10-12 09:37 | HO.PM.IMPN ---
Subjective Subjective Date of Service: 10/12/23 Interval History: f/u on septic shock d/t gram negative bacteremia, neurotpenia, pna, acute hypoxic resp failure interval history: Pt has decompensated overnnight becoming hypotensive and requiring fluid boluses, albumin with persistent hypotension' now in AFIB with RVR, HR in 130 to 140, at this very moment 113 and systolic BP has crossed over 100. She is confused and remains hypoxic. Lactic level unchanged. Platelets down to 5 and hemoglobin 5, WBC 0. Blood culture is positive for Pseudomonas Review of Systems She is confused, doesn't look well. Physical Exam Vital Signs: Vital Signs: Last Vital Signs Temp 97.2 F 10/12/23 08:29 Pulse 149 H 10/12/23 08:29 Resp 20 10/12/23 08:29 BP 93/60 10/12/23 08:29 Pulse Ox 92 10/12/23 07:14 O2 Del Method Nasal Cannula 10/12/23 07:14 O2 Flow Rate 6 10/12/23 07:14 BMI result Body Mass Index 19.5 General: somnolent, easily aroused, confsed, frail looking Resp: no accessory muscle use, CVS: S1,S2,RRR GI: +BS, NT, no distention Skin: No rash Neuro: motor grossly intact Psych: appropriate affect Objective Data Active Medications Acyclovir (Acyclovir 200 Mg Capsule) 400 mg PO BID [facility] Last Admin: 10/12/23 08:45 Dose: Not Given Documented By: SAM Non-Admin Reason: pt too lethargic to take PO meds Allopurinol (Allopurinol 300 Mg Tablet) 300 mg PO DAILY [facility] Last Admin: 10/12/23 08:45 Dose: Not Given Documented By: SAM Non-Admin Reason: pt too lethargic to take Po meds Cyanocobalamin (Cyanocobalamin (Vitamin B-12) 1,000 Mcg Tablet) 1,000 mcg PO DAILY [facility] Last Admin: 10/12/23 08:46 Dose: Not Given Documented By: SAM Non-Admin Reason: pt too lethargic to take PO meds \ Digoxin (Digoxin 0.5 Mg/2 Ml Ampul) 0.25 mg IVPUSH Q6H [facility] Stop: 10/12/23 15:31 Cefepime HCl 2 gm/ Sodium (Chloride) 50 mls @ 100 mls/hr IV Q12H [facility] Last Infusion: 10/11/23 17:06 Dose: Infused Documented By: FERMIN Lorazepam (Lorazepam 0.5 Mg Tablet) 0.5 mg PO DAILY PRN PRN Reason: anxiety Last Admin: 10/12/23 02:34 Dose: 0.5 mg Documented By: MICHELL Pharmacy Consult (Consult Rx Vancomycin Dosing) 1 each MISCELLANE DAILY PRN PRN Reason: Consult order Potassium Chloride (Potassium Chloride Er 20 Meq Tab.Er.Prt) 20 meq PO DAILY [facility] Last Admin: 10/12/23 08:46 Dose: Not Given Documented By: SAM Non-Admin Reason: pt too lethargic to take PO meds Sodium Chloride (0.9 % Sodium Chloride Flush 3 Ml Syringe) 3 ml IVFLUSH QSHIFT [facility] Last Admin: 10/12/23 08:47 Dose: 3 ml Documented By: SAM Tbo-Filgrastim (Tbo-Filgrastim 300 Mcg/0.5 Ml Syringe) 300 mcg SUBCUT DAILY [facility] Last Admin: 10/12/23 09:24 Dose: 300 mcg Documented By: SAM Labs 10/12/23 06:20 10/12/23 08:40 Labs: Laboratory Results - last 24 hr 10/09/23 10/09/23 10/11/23 18:17 21:08 16:37 MCV MCH MCHC RDW Plt Count MPV Absolute Nucleated RBC Nucleated RBC % (auto) Hold Purple Top Anion Gap Estim Creat Clear Calc Estimated GFR Random Glucose Lactic Acid Calcium Total Bilirubin AST ALT Alkaline Phosphatase Troponin I High Sens Total Protein Albumin Random Vancomycin 11.6 L A.phagocytophil DNA PCR NOT DETECTED Babesia microti DNA PCR NOT DETECTED Borrelia sp DNA (PCR) NOT DETECTED Borrelia miyamotoi (PCR) NOT DETECTED E.chaffeensis DNA (PCR) NOT DETECTED Tick-borne Disease PCR SEE NOTE Blood Type O Positive Antibody Screen NEGATIVE Crossmatch See Detail 10/12/23 10/12/23 10/12/23 06:20 08:37 08:40 MCV 89.9 MCH 30.7 MCHC 34.2 RDW 14.7 Plt Count 5 L* D MPV 13.1 H Absolute Nucleated RBC 0.000 Nucleated RBC % (auto) 0.0 Hold Purple Top SEE NOTE Anion Gap 15 Estim Creat Clear Calc 41.7 42.7 Estimated GFR > 60 > 60 Random Glucose 137 H Lactic Acid 3.0 H* Calcium 8.5 Total Bilirubin 1.4 H AST 110 H ALT 106 H Alkaline Phosphatase 97 Troponin I High Sens 49.1 H D Total Protein 4.6 L Albumin 3.1 L Random Vancomycin 18.2 A.phagocytophil DNA PCR Babesia microti DNA PCR Borrelia sp DNA (PCR) Borrelia miyamotoi (PCR) E.chaffeensis DNA (PCR) Tick-borne Disease PCR Blood Type Antibody Screen Crossmatch Microbiology Microbiology Results: Microbiology 10/09/23 15:59 Blood Culture - Final Blood - Venous Pseudomonas aeruginosa 10/09/23 15:58 Blood Culture - Final Blood - Venous Pseudomonas aeruginosa 10/10/23 07:16 Blood Culture - Preliminary Blood - Venous Prelim: GNR Gram Stain only Assessment and Plan (1) Gram-negative bacteremia: Status: Acute (2) Pancytopenia: Status: Acute (3) Acute myeloid leukemia: Status: Acute (4) Septic shock: Status: Acute (5) Thrombocytopenia: Status: Acute Plan 73/F with acute myeloid leukemia on oral paliative chemotherapy, complicated by pancytopenia, COPD, and HLD, She was admitted through the ICU with septic shock ,pancytopenia, Neutropenic and has gram negative angelina bacteremi and PNA. Presently on Vancomycin, Cefepime and Doxyc. Septic shock due to gram negative bacteremia-required vasopressors in icu -BCx 10/08 and GNR, sensitivity = Pseudomonas -continue Cefepime, Vanco.. Doxyc stopped 10/10 -for Hypotension likely due anemia, -ID following Hypotenison --at this point not due to sepsis, rather anemia. -Transfuse blood, platletes and albumin and monitor B Neutropenia--no fever, WBC 0.2, ANC 0 -Granix daily until WBC 1K per onc -oncology following Pancytopenia--d/t AML,, chemo -transfusion as above, on paliative chemo -keep plat > 10 and Hgb >7 Acute hypoxic respiratory failure d/t PNA, + parainfluezae -O2 to keep sat 88 to 94 COPD--no excacerbation continue inhalers Hypothyroidism on levothyroxine -tsh 0.7, levothyxoxine Mood disorder/anxiety -ativan PRN moderate Protein calorie malnutrition -ensure supplement DNI Poor prognosis compression device for DVT need for inpt: septic shock, bacteremia, neutropenina on IV Abx, cultures pending, not able to do this safely in outpatient setting Prognosis is poor, goals of care discussed with HCP Crystal Grewal, prognosis is poor and hospice is being considered. Quality Stroke Does the patient have a stroke diagnosis?: No VTE Prior VTE?: No VTE Risk Level:: Medical - moderate - high VTE Device Contraindication: N/A - Device Ordered VTE Drug Contraindication: Treatment Not Indicated
[2023-10-12 09:48] LABS: Magnesium 1.7 mg/dL (1.6-2.6)
[2023-10-12] MEDS: Digoxin 0.5 MG/2 ML AMPUL 0.25 MG IVPUSH ×2 (10:16→14:41)
[2023-10-12 10:37] LABS: Reflex Lactate? Lactic Acid Added
[2023-10-12] MEDS: Levothyroxine Sodium 100 MCG/5 ML VIAL 50 MCG IVPUSH (15:39)
[2023-10-12] MEDS: cefEPime HCl 2 GM in 0.9 % Sodium Chloride 50 ML IV (15:40)
--- NOTE | 2023-10-12 16:07 | PC.NURSE ---
Pt 3.71 sec pause on television camera operator to room to assess pt- pt unaware that it happened, AOx4. Pt other VSS. MD notified Also notified of pt skin areas- bruise like area surrounded by pink skin on back and outter L knee - checked with wound RN - states ?purpura r/t recent platelet txn- will cont to monitor site
--- NOTE | 2023-10-12 16:36 | P.CONCA_ITS ---
History of Present Illness History of Present Illness Date of Service: 10/12/23 Requesting physician: Cameron Norman Chief complaint: Afib with RVR Narrative: 73-year-old female with acute myeloid leukemia and gram-negative sepsis. She has been very sick and on antibiotics. Today she developed atrial fibrillation with rapid ventricular response. Blood pressure was borderline and she was given digoxin load. Currently heart rates are 110 to 120s. She is anemic with hemoglobin of 5.5. WBC currently 0.2 and platelets are 5000. Denying chest pain or shortness of breath. Overall quite sick appearing due to prolonged medical issues. [facility] Past Medical History Medical History Acute myeloid leukemia Anemia Thrombocytopenia Gram-positive bacteremia Tobacco dependence Dyspnea COPD (chronic obstructive pulmonary disease) Anemia COPD with asthma Anxiety Depression Non-Hodgkin lymphoma in remission Hypothyroidism Family History Family History Father CAD (coronary artery disease) Family history: reviewed and not pertinent Surgical History Surgical History S/P angiogram of extremity (02/13/20) History of salpingo-oophorectomy H/O: hysterectomy Social History Social History Household Members: None Housing: Apartment Do you presently have visiting nurse or other home services: No Unable to assess alcohol history related to: Unable to respond Alcohol intake: never Comment: lalito is being paited , no falling star at this time Patient Tobacco Use Status: Current everyday Tobacco user Tobacco use type: Cigarette Cigarette Packs Per Day: 1 Years Smoked: 40 Smoked in Last 30 Days: Yes e-Cigarette/Vaping Use: Never Used Patient Interested in Nicotine Replacement: No Patient Given Instructions on How to Stop Smoking: No Second Hand Smoke Exposure: No (not interested) Use of substances other than those prescribed or required for medical reasons: No Currently Displaying Signs/Symptoms of Drug Intoxication Withdrawal: No Any prior treatment program specific to substance use: No Do you feel safe in your current relationship?: No Current Relationship Is there a partner from a previous relationship who is making you feel unsafe now?: No Are you made to feel afraid or neglected: No Advance Directives: Yes Advance Directives on File: Yes Advance Directives Date on File: 07/16/21 Do you have a plan to hurt others: No Plan Recently lost weight without trying: No Eating poorly because of decreased appetite: No Nutrition Risks: No Nutritional Risk Patient : No : No Poor oral hygiene: No service: No Current occupational status: retired Meds Allergies Allergy/AdvReac Type Severity Reaction Status Date / Time adhesive tape Allergy Unknown RASH Verified 10/09/23 15:33 bacitracin [Bacitracin] Allergy Unknown RASH Verified 10/09/23 15:33 Active Medications: Current Medications Acyclovir (Acyclovir 200 Mg Capsule) 400 mg PO BID [facility] Last Admin: 10/12/23 08:45 Dose: Not Given Allopurinol (Allopurinol 300 Mg Tablet) 300 mg PO DAILY [facility] Last Admin: 10/12/23 08:45 Dose: Not Given Cyanocobalamin (Cyanocobalamin (Vitamin B-12) 1,000 Mcg Tablet) 1,000 mcg PO DAILY [facility] Last Admin: 10/12/23 08:46 Dose: Not Given Cefepime HCl 2 gm/ Sodium (Chloride) 50 mls @ 100 mls/hr IV Q12H [facility] Last Admin: 10/12/23 15:40 Dose: 100 mls/hr Levothyroxine Sodium (Levothyroxine Sodium 100 Mcg/5 Ml Vial) 50 mcg IVPUSH DAILY@0600 [facility] Last Admin: 10/12/23 15:39 Dose: 50 mcg Lorazepam (Lorazepam 0.5 Mg Tablet) 0.5 mg PO DAILY PRN PRN Reason: anxiety Last Admin: 10/12/23 02:34 Dose: 0.5 mg Pharmacy Consult (Consult Rx Vancomycin Dosing) 1 each MISCELLANE DAILY PRN PRN Reason: Consult order Potassium Chloride (Potassium Chloride Er 20 Meq Tab.Er.Prt) 20 meq PO DAILY [facility] Last Admin: 10/12/23 08:46 Dose: Not Given Sodium Chloride (0.9 % Sodium Chloride Flush 3 Ml Syringe) 3 ml IVFLUSH QSHIFT [facility] Last Admin: 10/12/23 15:40 Dose: 3 ml Tbo-Filgrastim (Tbo-Filgrastim 300 Mcg/0.5 Ml Syringe) 300 mcg SUBCUT DAILY [facility] Last Admin: 10/12/23 09:24 Dose: 300 mcg Home Medications ?Medication ?Instructions ?Recorded ?Confirmed ?Last Taken ?Type acyclovir 400 mg tablet 400 mg PO BID 01/31/20 10/10/23 08/12/23 History levothyroxine 125 mcg tablet 125 mcg PO DAILY@0600 01/31/20 08/12/23 08/12/23 History trazodone 100 mg tablet 100 mg PO BEDTIME 01/31/20 08/12/23 08/12/23 History lorazepam 0.5 mg tablet 0.5 mg PO DAILY PRN anxiety 03/01/22 10/10/23 02/02/23 History cyanocobalamin (vitamin B-12) 1,000 mcg PO DAILY 02/02/23 10/10/23 08/12/23 History 1,000 mcg tablet potassium chloride 20 mEq 20 meq PO DAILY 02/02/23 10/10/23 08/12/23 History tablet,extended release fexofenadine 180 mg tablet 180 mg PO DAILY 07/10/23 08/12/23 08/12/23 History (Nahed Allergy) allopurinol 300 mg tablet 300 mg PO DAILY 10/10/23 10/10/23 Unknown History decitabine 35 mg-cedazuridine 100 1 tab PO DAILY 10/10/23 10/10/23 Unknown History mg tablet (Inqovi) nystatin 100,000 unit/mL oral 5 ml PO QID 10/10/23 10/10/23 Unknown History suspension venetoclax 100 mg tablet See Rx Instructions .Route .COMPLEX 10/10/23 Unknown History (Venclexta) Physical Exam 2 Vital Signs: Vital Signs: Last Vital Signs Temp 96.6 F L 10/12/23 16:18 Pulse 115 H 10/12/23 16:18 Resp 18 10/12/23 16:18 BP 115/65 10/12/23 16:18 Pulse Ox 98 10/12/23 16:00 O2 Del Method Oxymask 10/12/23 16:00 O2 Flow Rate 8 10/12/23 16:00 BMI result Body Mass Index 19.5 GENERAL APPEARANCE: in no acute distress, frail. NECK: no carotid bruit, no significant jugular venous distention. SKIN: no suspicious lesions, warm and dry. HEART: no murmurs, irregular rate and rhythm. LUNGS: clear to auscultation bilaterally. ABDOMEN: soft, nontender. EXTREMITIES: no edema. PERIPHERAL PULSES: equal. NEUROLOGIC: No gross deficits, AAO X 3 Objective Labs and Meds 10/12/23 06:20 10/12/23 08:40 Lab results: Laboratory Results - last 24 hr 10/09/23 10/09/23 10/11/23 18:17 21:08 16:37 WBC RBC Hgb Hct MCV MCH MCHC RDW Plt Count MPV Absolute Nucleated RBC Nucleated RBC % (auto) Hold Purple Top Sodium Potassium Chloride Carbon Dioxide Anion Gap BUN Creatinine Estim Creat Clear Calc Estimated GFR Random Glucose Lactic Acid Lactic Acid F/U @ 2Hr Calcium Magnesium Total Bilirubin AST ALT Alkaline Phosphatase Troponin I High Sens Total Protein Albumin Random Vancomycin 11.6 L A.phagocytophil DNA PCR NOT DETECTED Babesia microti DNA PCR NOT DETECTED Borrelia sp DNA (PCR) NOT DETECTED Borrelia miyamotoi (PCR) NOT DETECTED E.chaffeensis DNA (PCR) NOT DETECTED Tick-borne Disease PCR SEE NOTE Blood Type O Positive Antibody Screen NEGATIVE Crossmatch See Detail 10/12/23 10/12/23 10/12/23 06:20 08:37 08:40 WBC 0.2 L* RBC 1.79 L D Hgb 5.5 L* D Hct 16.1 L* D MCV 89.9 MCH 30.7 MCHC 34.2 RDW 14.7 Plt Count 5 L* D MPV 13.1 H Absolute Nucleated RBC 0.000 Nucleated RBC % (auto) 0.0 Hold Purple Top SEE NOTE Sodium 138 Potassium 4.0 Chloride 108 Carbon Dioxide 19 L Anion Gap 15 BUN 38 H Creatinine 0.82 0.80 Estim Creat Clear Calc 41.7 42.7 Estimated GFR > 60 > 60 Random Glucose 137 H Lactic Acid 3.0 H* Lactic Acid F/U @ 2Hr Calcium 8.5 Magnesium 1.7 Total Bilirubin 1.4 H AST 110 H ALT 106 H Alkaline Phosphatase 97 Troponin I High Sens 49.1 H D Total Protein 4.6 L Albumin 3.1 L Random Vancomycin 18.2 A.phagocytophil DNA PCR Babesia microti DNA PCR Borrelia sp DNA (PCR) Borrelia miyamotoi (PCR) E.chaffeensis DNA (PCR) Tick-borne Disease PCR Blood Type Antibody Screen Crossmatch 10/12/23 11:25 WBC RBC Hgb Hct MCV MCH MCHC RDW Plt Count MPV Absolute Nucleated RBC Nucleated RBC % (auto) Hold Purple Top Sodium Potassium Chloride Carbon Dioxide Anion Gap BUN Creatinine Estim Creat Clear Calc Estimated GFR Random Glucose Lactic Acid Lactic Acid F/U @ 2Hr 2.0 Calcium Magnesium Total Bilirubin AST ALT Alkaline Phosphatase Troponin I High Sens Total Protein Albumin Random Vancomycin A.phagocytophil DNA PCR Babesia microti DNA PCR Borrelia sp DNA (PCR) Borrelia miyamotoi (PCR) E.chaffeensis DNA (PCR) Tick-borne Disease PCR Blood Type Antibody Screen Crossmatch Assessment and Plan (1) Gram-negative bacteremia: Status: Acute (2) Atrial fibrillation with RVR: Status: Acute Plan 73-year-old female with acute myeloid leukemia and pancytopenia and Gram- negative sepsis. She developed AFib RVR. AFib is due to underlying multiple comorbidities and acute illness. She is significant anemic with hemoglobin of 5.5. She can get digoxin load up to 50 mcg x 3. Blood pressure is little better and I would advise starting her on low-dose metoprolol 25 mg twice a day. Not anticoagulation candidate. I would avoid amiodarone currently. Would benefit from some blood and that may raise her blood pressure also. Thank you for allowing me to participate in the care of your patient. Please feel free to contact me if you have any questions. Procedures Date of Service Date of Service: 10/12/23
--- NOTE | 2023-10-12 17:18 | PC.NURSE ---
Pt briefly converted to SR HR 29 then converted back to afib HR 111. aware. Pt was asleep at that time. Woke pt up, asymptomatic. Will cont to monitor
[2023-10-12 17:49] LABS: Hemoglobin 9.5 g/dl (12.0-16.0); PLT CLUMP 1
[2023-10-12 17:51] LABS: Hematocrit 27.4 % (37.0-47.0); Mean Corpuscular HGB Conc 34.7 g/dl (31.0-35.0); Mean Corpuscular Hemoglobin 32.1 pg (27.0-33.0); Mean Corpuscular Volume 92.6 fL (80.0-98.0); Mean Platelet Volume 10.2 fL (9.4-12.3); Red Blood Count 2.96 X10*6/uL (4.20-5.50); Red Cell Distribution Width 14.7 % (11.0-16.0)
[2023-10-12 18:19] LABS: Platelet Count 14 X10*3/uL (160-400); White Blood Count 0.3 X10*3/uL (4.8-10.8)
--- NOTE | 2023-10-12 18:30 | PC.NURSE ---
Pt had another 4.05sec pause, went to check on patient, she was asleep, discussed with MD - Mg level today was 1.7. New order for 2gm magnesium IV per MD. Will admin when goes through pharmacy
[2023-10-12] MEDS: Magnesium Sulfate/H2O 2 GM/50 ML PIGGYBACK IV (18:45)
[2023-10-12] MEDS: Acyclovir 200 MG CAPSULE 400 MG PO (22:03)
[2023-10-12] MEDS: Metoprolol Tartrate 25 MG TABLET PO (22:03)
--- NOTE | 2023-10-12 22:13 | PC.NURSE ---
pt HCP Crystal called secretary to the vice president around 2029 requesting a call back from this nurse. this nurse asked patient for permission to speak to Crystal. permission verbalized by patient at [phone]. call returned at [phone]. Crystal inquired how is she doing. Crystal informed that pt is alert and oriented x4, lethargic, vitals stable. no further questions. pt clean, comfortable, denies pain. call acosta in reach. plan of care ongoing
[2023-10-13] VITALS (9 sets, daily range): BP systolic 112–139; BP diastolic 60–78; PULSE 82–94; RESP 16–20; TEMP 36.1–36.7; O2SAT 90–100
[2023-10-13] MEDS: cefEPime HCl 2 GM in 0.9 % Sodium Chloride 50 ML IV ×2 (05:09→17:00)
[2023-10-13] MEDS: Levothyroxine Sodium 100 MCG/5 ML VIAL 50 MCG IVPUSH (05:09)
[2023-10-13 06:05] LABS: Hematocrit 25.7 % (37.0-47.0); Hemoglobin 9.1 g/dl (12.0-16.0); Mean Corpuscular HGB Conc 35.4 g/dl (31.0-35.0); PLT CLUMP 1; Red Cell Distribution Width 14.6 % (11.0-16.0)
[2023-10-13 06:08] LABS: Mean Corpuscular Hemoglobin 31.8 pg (27.0-33.0); Mean Corpuscular Volume 89.9 fL (80.0-98.0); Mean Platelet Volume 8.6 fL (9.4-12.3); Red Blood Count 2.86 X10*6/uL (4.20-5.50)
[2023-10-13 06:15] LABS: White Blood Count 0.3 X10*3/uL (4.8-10.8)
[2023-10-13 06:16] LABS: Platelet Count 8 X10*3/uL (160-400)
[2023-10-13 06:20] LABS: Anion Gap 15 (12-20); Blood Urea Nitrogen 41 mg/dL (9-16); Calcium 8.7 mg/dL (8.4-10.2); Carbon Dioxide 20 mmol/L (22-29); Chloride 109 mmol/L (96-108); Creatinine Clr Calc Pharmacy 42.2; Estimated Glomerular Filt Rate > 60; Glucose Random 174 mg/dL (60-115); Potassium 3.8 mmol/L (3.3-5.1); Sodium 140 mmol/L (135-145)
[2023-10-13] MEDS: Cyanocobalamin (Vitamin B-12) 1,000 MCG TABLET 1000 MCG PO (09:22)
[2023-10-13] MEDS: Acyclovir 200 MG CAPSULE 400 MG PO ×2 (09:22→20:51)
[2023-10-13] MEDS: allopurinoL 300 MG TABLET PO (09:22)
[2023-10-13] MEDS: Tbo-Filgrastim 300 MCG/0.5 ML SYRINGE SUBCUT (09:22)
[2023-10-13] MEDS: Metoprolol Tartrate 25 MG TABLET PO ×2 (09:22→20:51)
[2023-10-13] MEDS: Potassium Chloride ER 20 MEQ TAB.ER.PRT PO (09:22)
[2023-10-13] MEDS: 0.9 % Sodium Chloride Flush 3 ML SYRINGE IVFLUSH ×2 (09:23→17:00)
--- NOTE | 2023-10-13 12:42 | HO.PM.IMPN ---
Subjective Subjective Date of Service: 10/13/23 Interval History: f/u on septic shock d/t pseudomonas bacteremia, neurotpenia, pna, acute hypoxic resp failure interval history: Patient is doing better, compare to yesterday, hypotensiona nd tachycardia resolved. She's more alert as well. H/H is better, she remains neutropenic with ANC of zero Review of Systems She is confused, doesn't look well. Physical Exam Vital Signs: Vital Signs: Last Vital Signs Temp 97.3 F 10/13/23 09:53 Pulse 90 10/13/23 09:53 Resp 20 10/13/23 09:53 BP 139/78 10/13/23 09:53 Pulse Ox 98 10/13/23 08:00 O2 Del Method Oxymask 10/13/23 08:00 O2 Flow Rate 8 10/13/23 08:00 BMI result Body Mass Index 19.5 General: AO X 2, no acute distress, frail looking Resp: CTA bilateral CVS: S1,S2,RRR GI: +BS, NT, no distention Skin: No rash Neuro: motor grossly intact Psych: appropriate affect Objective Data Active Medications Acyclovir (Acyclovir 200 Mg Capsule) 400 mg PO BID [facility] 234 BEDS AT THE [facility] Last Admin: 10/13/23 09:22 Dose: 400 mg Documented By: NAPOLEON Allopurinol (Allopurinol 300 Mg Tablet) 300 mg PO DAILY [facility]S [facility]CLUDE 234 BEDS AT THE [facility] Last Admin: 10/13/23 09:22 Dose: 300 mg Documented By: NAPOLEON Cyanocobalamin (Cyanocobalamin (Vitamin B-12) 1,000 Mcg Tablet) 1,000 mcg PO DAILY [facility]CLUDE 234 BEDS AT THE [facility] Last Admin: 10/13/23 09:22 Dose: 1,000 mcg Documented By: NAPOLEON Cefepime HCl 2 gm/ Sodium (Chloride) 50 mls @ 100 mls/hr IV Q12H [facility]S [facility]CLUDE 234 BEDS AT THE [facility] Last Infusion: 10/13/23 06:50 Dose: Infused Documented By: GABRIELE Levothyroxine Sodium (Levothyroxine Sodium 100 Mcg/5 Ml Vial) 50 mcg IVPUSH DAILY@0600 COUNTS INCLUDE 234 BEDS AT THE [facility] Last Admin: 10/13/23 05:09 Dose: 50 mcg Documented By: GABRIELE Lorazepam (Lorazepam 0.5 Mg Tablet) 0.5 mg PO DAILY PRN PRN Reason: anxiety Last Admin: 10/12/23 02:34 Dose: 0.5 mg Documented By: MICHELL Metoprolol Tartrate (Metoprolol Tartrate 25 Mg Tablet) 25 mg PO BID [facility]S INCLUDE 234 BEDS AT THE [facility]; Protocol Last Admin: 10/13/23 09:22 Dose: 25 mg Documented By: NAPOLEON Pharmacy Consult (Consult Rx Vancomycin Dosing) 1 each MISCELLANE DAILY PRN PRN Reason: Consult order Potassium Chloride (Potassium Chloride Er 20 Meq Tab.Er.Prt) 20 meq PO DAILY [facility]CLUDE 234 BEDS AT THE [facility] Last Admin: 10/13/23 09:22 Dose: 20 meq Documented By: NAPOLEON Sodium Chloride (0.9 % Sodium Chloride Flush 3 Ml Syringe) 3 ml IVFLUSH QSHIFT COUNTS INCLUDE 234 BEDS AT THE [facility] Last Admin: 10/13/23 09:23 Dose: 3 ml Documented By: NAPOLEON Tbo-Filgrastim (Tbo-Filgrastim 300 Mcg/0.5 Ml Syringe) 300 mcg SUBCUT DAILY [facility]CLUDE 234 BEDS AT THE [facility] Last Admin: 10/13/23 09:22 Dose: 300 mcg Documented By: NAPOLEON Labs 10/13/23 05:53 10/13/23 05:53 Labs: Laboratory Results - last 24 hr 10/09/23 10/12/23 10/13/23 18:17 17:38 05:53 MCV 92.6 89.9 MCH 32.1 31.8 MCHC 34.7 35.4 H RDW 14.7 14.6 Plt Count 14 L* D 8 L* MPV 10.2 8.6 L Absolute Nucleated RBC 0.000 0.000 Nucleated RBC % (auto) 0.0 0.0 Anion Gap 15 Estim Creat Clear Calc 42.2 Estimated GFR > 60 Random Glucose 174 H Calcium 8.7 Blood Type O Positive Antibody Screen NEGATIVE Crossmatch See Detail 10/13/23 08:33 MCV MCH MCHC RDW Plt Count MPV Absolute Nucleated RBC Nucleated RBC % (auto) Anion Gap Estim Creat Clear Calc Estimated GFR Random Glucose Calcium Blood Type O Positive Antibody Screen NEGATIVE Crossmatch Microbiology Microbiology Results: Microbiology 10/12/23 08:42 Blood Culture - Preliminary Blood - Venous No growth after 24 hours. 10/12/23 08:42 Blood Culture - Preliminary Blood - Venous No growth after 24 hours. 10/10/23 07:16 Blood Culture - Final Blood - Venous Pseudomonas aeruginosa Assessment and Plan (1) Gram-negative bacteremia: Status: Acute (2) Pancytopenia: Status: Acute (3) Acute myeloid leukemia: Status: Acute (4) Septic shock: Status: Acute (5) Thrombocytopenia: Status: Acute Plan 73/F with acute myeloid leukemia on oral paliative chemotherapy, complicated by pancytopenia, COPD, and HLD, She was admitted through the ICU with septic shock ,pancytopenia, Neutropenic and has gram negative angelina bacteremi and PNA. Presently on Vancomycin, Cefepime and Doxyc. Septic shock due to gram negative bacteremia-required vasopressors in icu -BCx 10/08 and GNR, sensitivity = Pseudomonas, repeat culture 10/11 negative -continue Cefepime. Given no GPC will dc vanco and doxy -ID following Hypotenison --initially d/t septic shock, hypotension 10/11 d/t anemia and resolved with transfusion Neutropenia--no fever, WBC 0.2, ANC 0 -Granix daily until WBC 1K per onc -oncology following Pancytopenia--d/t AML,, chemo -transfusion for Hgb < 7 or Plat < 10 Acute hypoxic respiratory failure d/t PNA, + parainfluezae -O2 to keep sat 88 to 94 COPD--no excacerbation continue inhalers Hypothyroidism on levothyroxine -tsh 0.7, levothyxoxine Mood disorder/anxiety -ativan PRN moderate Protein calorie malnutrition -ensure supplement DNI Poor prognosis compression device for DVT need for inpt: septic shock, bacteremia, neutropenina on IV Abx, cultures pending, not able to do this safely in outpatient setting Prognosis is poor, goals of care discussed with HCP Crystal Grewal, prognosis is poor and hospice is being consideration Quality Stroke Does the patient have a stroke diagnosis?: No VTE Prior VTE?: No VTE Risk Level:: Medical - moderate - high VTE Device Contraindication: N/A - Device Ordered VTE Drug Contraindication: Treatment Not Indicated
[2023-10-14] VITALS (12 sets, daily range): BP systolic 112–148; BP diastolic 58–84; PULSE 82–103; RESP 14–20; TEMP 36.2–36.4; O2SAT 96–99; BMI 21.9
[2023-10-14] MEDS: cefEPime HCl 2 GM in 0.9 % Sodium Chloride 50 ML IV ×2 (03:04→15:25)
[2023-10-14] MEDS: Levothyroxine Sodium 100 MCG/5 ML VIAL 50 MCG IVPUSH (05:15)
[2023-10-14 06:41] LABS: Mean Corpuscular Volume 90.3 fL (80.0-98.0); Red Cell Distribution Width 14.8 % (11.0-16.0)
[2023-10-14 06:42] LABS: Hematocrit 26.9 % (37.0-47.0); Hemoglobin 9.4 g/dl (12.0-16.0); Mean Corpuscular HGB Conc 34.9 g/dl (31.0-35.0); Mean Corpuscular Hemoglobin 31.5 pg (27.0-33.0); PLT CLUMP 1; Red Blood Count 2.98 X10*6/uL (4.20-5.50)
[2023-10-14 06:55] LABS: Anion Gap 13 (12-20); Blood Urea Nitrogen 39 mg/dL (9-16); Calcium 8.3 mg/dL (8.4-10.2); Carbon Dioxide 20 mmol/L (22-29); Chloride 110 mmol/L (96-108); Creatinine Clr Calc Pharmacy 48.1; Estimated Glomerular Filt Rate > 60; Glucose Random 169 mg/dL (60-115); Potassium 3.3 mmol/L (3.3-5.1); Sodium 140 mmol/L (135-145)
[2023-10-14 07:23] LABS: WBC ABN SCTR FOR CBC 1
[2023-10-14 07:24] LABS: White Blood Count 0.4 X10*3/uL (4.8-10.8)
[2023-10-14 07:25] LABS: Platelet Count 9 X10*3/uL (160-400)
[2023-10-14] MEDS: 0.9 % Sodium Chloride Flush 3 ML SYRINGE IVFLUSH ×3 (07:30→20:10)
[2023-10-14 07:58] LABS: Magnesium 1.9 mg/dL (1.6-2.6)
[2023-10-14] MEDS: Potassium Chloride ER 20 MEQ TAB.ER.PRT PO (09:09)
[2023-10-14] MEDS: allopurinoL 300 MG TABLET PO (09:09)
[2023-10-14] MEDS: Cyanocobalamin (Vitamin B-12) 1,000 MCG TABLET 1000 MCG PO (09:09)
[2023-10-14] MEDS: Metoprolol Tartrate 25 MG TABLET PO ×2 (09:09→20:10)
[2023-10-14] MEDS: Acyclovir 200 MG CAPSULE 400 MG PO ×2 (09:09→20:10)
[2023-10-14] MEDS: Tbo-Filgrastim 300 MCG/0.5 ML SYRINGE SUBCUT (09:11)
--- NOTE | 2023-10-14 11:13 | P.PNIM_ITS ---
Subjective Subjective Date of Service: 10/14/23 Interval History: f/u on septic shock d/t pseudomonas bacteremia, neurotpenia, pna, acute hypoxic resp failure interval history: Very frail looking, has poor apetite, H/H is better, WBC remains low Review of Systems She is confused, doesn't look well. Physical Exam 2 Vital Signs: Vital Signs: Last Vital Signs Temp 97.3 F 10/14/23 10:52 Pulse 82 10/14/23 10:52 Resp 17 10/14/23 10:52 BP 142/71 H 10/14/23 10:52 Pulse Ox 99 10/14/23 08:00 O2 Del Method Nasal Cannula 10/14/23 08:00 O2 Flow Rate 1 10/14/23 08:00 BMI result Body Mass Index 21.9 General: AO X 2, no acute distress, frail looking Resp: CTA bilateral CVS: S1,S2,RRR GI: +BS, NT, no distention Skin: No rash Neuro: motor grossly intact Psych: appropriate affect Const: Other: General: AO X 3, no acute distress Resp: CTA bilateral CVS: S1,S2,RRR GI: +BS, NT, no distention Skin: No rash Neuro: motor grossly intact Psych: appropriate affect Objective Data Active Medications Acyclovir (Acyclovir 200 Mg Capsule) 400 mg PO BID [facility] Last Admin: 10/14/23 09:09 Dose: 400 mg Documented By: NELLY Allopurinol (Allopurinol 300 Mg Tablet) 300 mg PO DAILY [facility] Last Admin: 10/14/23 09:09 Dose: 300 mg Documented By: NELLY Cyanocobalamin (Cyanocobalamin (Vitamin B-12) 1,000 Mcg Tablet) 1,000 mcg PO DAILY [facility] Last Admin: 10/14/23 09:09 Dose: 1,000 mcg Documented By: NELLY Cefepime HCl 2 gm/ Sodium (Chloride) 50 mls @ 100 mls/hr IV Q12H [facility] Last Infusion: 10/14/23 04:46 Dose: Infused Documented By: GABRIELE Sodium Chloride (Ns) 100 mls @ 100 mls/hr IV ONCE ONE Stop: 10/14/23 11:43 Levothyroxine Sodium (Levothyroxine Sodium 100 Mcg/5 Ml Vial) 50 mcg IVPUSH DAILY@0600 [facility] Last Admin: 10/14/23 05:15 Dose: 50 mcg Documented By: GABRIELE Lorazepam (Lorazepam 0.5 Mg Tablet) 0.5 mg PO DAILY PRN PRN Reason: anxiety Last Admin: 10/12/23 02:34 Dose: 0.5 mg Documented By: MICHELL Metoprolol Tartrate (Metoprolol Tartrate 25 Mg Tablet) 25 mg PO BID [facility]; Protocol Last Admin: 10/14/23 09:09 Dose: 25 mg Documented By: NELLY Pharmacy Consult (Consult Rx Vancomycin Dosing) 1 each MISCELLANE DAILY PRN PRN Reason: Consult order Potassium Chloride (Potassium Chloride Er 20 Meq Tab.Er.Prt) 20 meq PO DAILY [facility] Last Admin: 10/14/23 09:09 Dose: 20 meq Documented By: NELLY Sodium Chloride (0.9 % Sodium Chloride Flush 3 Ml Syringe) 3 ml IVFLUSH QSHIFT [facility] Last Admin: 10/14/23 07:30 Dose: 3 ml Documented By: NELLY Tbo-Filgrastim (Tbo-Filgrastim 300 Mcg/0.5 Ml Syringe) 300 mcg SUBCUT DAILY [facility] Last Admin: 10/14/23 09:11 Dose: 300 mcg Documented By: NELLY Labs 10/14/23 06:23 10/14/23 06:23 Labs: Laboratory Results - last 24 hr 10/13/23 10/14/23 08:33 06:23 MCV 90.3 MCH 31.5 MCHC 34.9 RDW 14.8 Plt Count 9 L* MPV 10.0 Absolute Nucleated RBC 0.000 Nucleated RBC % (auto) 0.0 Anion Gap 13 Estim Creat Clear Calc 48.1 Estimated GFR > 60 Random Glucose 169 H Calcium 8.3 L Magnesium 1.9 Blood Type O Positive Antibody Screen NEGATIVE Microbiology Microbiology Results: Microbiology 10/12/23 08:42 Blood Culture - Preliminary Blood - Venous No growth after 48 hours. 10/12/23 08:42 Blood Culture - Preliminary Blood - Venous No growth after 48 hours. 10/10/23 07:16 Blood Culture - Final Blood - Venous Pseudomonas aeruginosa Assessment and Plan (1) Gram-negative bacteremia: Status: Acute (2) Pancytopenia: Status: Acute (3) Acute myeloid leukemia: Status: Acute (4) Septic shock: Status: Acute (5) Thrombocytopenia: Status: Acute Plan 73/F with acute myeloid leukemia on oral paliative chemotherapy, complicated by pancytopenia, COPD, and HLD, She was admitted through the ICU with septic shock ,pancytopenia, Neutropenic and has gram negative angelina bacteremi and PNA. Presently on Vancomycin, Cefepime and Doxyc. Septic shock due to gram negative bacteremia-required vasopressors in icu -BCx 10/08 and GNR, sensitivity = Pseudomonas, repeat culture 10/11 negative -continue Cefepime. Vanco stopped on 10/12 -ID following Hypotenison --initially d/t septic shock, hypotension 10/11 d/t anemia and resolved with transfusion Neutropenia--no fever, WBC 0.4, ANC 0 -Granix daily until WBC 1K per onc -oncology following Pancytopenia--d/t AML,, chemo -transfusion for Hgb < 7 or Plat < 10, plat 9 today Acute hypoxic respiratory failure d/t PNA, + parainfluezae -O2 to keep sat 88 to 94, continue Abx as above COPD--no excacerbation continue inhalers Hypothyroidism on levothyroxine -tsh 0.7, levothyxoxine Mood disorder/anxiety -ativan PRN moderate Protein calorie malnutrition -ensure supplement DNI Poor prognosis compression device for DVT need for inpt: septic shock, bacteremia, neutropenina on IV Abx, cultures pending, not able to do this safely in outpatient setting Prognosis is poor, goals of care discussed with HCP Crystal Grewal, prognosis is poor and hospice is a consideration Quality Stroke Does the patient have a stroke diagnosis?: No VTE Prior VTE?: No VTE Risk Level:: Medical - moderate - high VTE Device Contraindication: N/A - Device Ordered VTE Drug Contraindication: Treatment Not Indicated
--- NOTE | 2023-10-14 12:26 | MHC.CM.PN ---
EMR reviewed, pt w/acute myeloid leukemia and gram negative bacteremia, pt slowly improving, no plan for dc at this time, cm will cont to follow dc needs.
[2023-10-15] VITALS: BP 129/61; PULSE 73; RESP 18; TEMP 36.4; O2SAT 97
[2023-10-15 03:27] VITALS: BP 118/66; PULSE 115; RESP 18; TEMP 37.1; O2SAT 93
[2023-10-15] MEDS: cefEPime HCl 2 GM in 0.9 % Sodium Chloride 50 ML IV ×2 (04:03→15:17)
[2023-10-15 06:04] VITALS: BMI 20.6
[2023-10-15] MEDS: Levothyroxine Sodium 100 MCG/5 ML VIAL 50 MCG IVPUSH (07:02)
--- NOTE | 2023-10-15 07:20 | HO.PM.IMPN ---
Subjective Subjective Date of Service: 10/15/23 Interval History: f/u on septic shock d/t pseudomonas bacteremia, neurotpenia, pna, acute hypoxic resp failure, transient afib interval history: continues to be very frail, H/H is stable, platlets 25, WBC up to 0.5, afebrile, repeat cultures are negative over 48 hrs seems a bit confused today Physical Exam Vital Signs: Vital Signs: Last Vital Signs Temp 98.7 F 10/15/23 03:27 Pulse 115 H 10/15/23 03:27 Resp 18 10/15/23 03:27 BP 118/66 10/15/23 03:27 Pulse Ox 93 10/15/23 03:27 O2 Del Method Room Air 10/15/23 03:27 O2 Flow Rate 1 10/14/23 15:26 BMI result Body Mass Index 20.6 General: oriented to self, frail, emaciated, no distress Resp: CTA bilateral, normal effore CVS: S1,S2,RRR GI: +BS, NT, no distention Skin: No rash Neuro: motor grossly intact Psych: flat Objective Data Active Medications Acyclovir (Acyclovir 200 Mg Capsule) 400 mg PO BID [facility] Last Admin: 10/14/23 20:10 Dose: 400 mg Documented By: SHARMIN Allopurinol (Allopurinol 300 Mg Tablet) 300 mg PO DAILY [facility] Last Admin: 10/14/23 09:09 Dose: 300 mg Documented By: NELLY Cyanocobalamin (Cyanocobalamin (Vitamin B-12) 1,000 Mcg Tablet) 1,000 mcg PO DAILY [facility] Last Admin: 10/14/23 09:09 Dose: 1,000 mcg Documented By: NELLY Cefepime HCl 2 gm/ Sodium (Chloride) 50 mls @ 100 mls/hr IV Q12H [facility] Last Infusion: 10/15/23 05:22 Dose: Infused Documented By: JOVANI Levothyroxine Sodium (Levothyroxine Sodium 100 Mcg/5 Ml Vial) 50 mcg IVPUSH DAILY@0600 [facility] Last Admin: 10/15/23 07:02 Dose: 50 mcg Documented By: JOVANI Lorazepam (Lorazepam 0.5 Mg Tablet) 0.5 mg PO DAILY PRN PRN Reason: anxiety Last Admin: 10/12/23 02:34 Dose: 0.5 mg Documented By: MICHELL Metoprolol Tartrate (Metoprolol Tartrate 25 Mg Tablet) 25 mg PO BID [facility]; Protocol Last Admin: 10/14/23 20:10 Dose: 25 mg Documented By: SHARMIN Pharmacy Consult (Consult Rx Vancomycin Dosing) 1 each MISCELLANE DAILY PRN PRN Reason: Consult order Potassium Chloride (Potassium Chloride Er 20 Meq Tab.Er.Prt) 20 meq PO DAILY [facility] Last Admin: 10/14/23 09:09 Dose: 20 meq Documented By: NELLY Sodium Chloride (0.9 % Sodium Chloride Flush 3 Ml Syringe) 3 ml IVFLUSH QSHIFT [facility] Last Admin: 10/14/23 20:10 Dose: 3 ml Documented By: SHARMIN Tbo-Filgrastim (Tbo-Filgrastim 300 Mcg/0.5 Ml Syringe) 300 mcg SUBCUT DAILY [facility] Last Admin: 10/14/23 09:11 Dose: 300 mcg Documented By: NELLY Labs 10/15/23 07:56 10/14/23 06:23 Labs: Laboratory Results - last 24 hr 10/13/23 10/14/23 08:33 06:23 MCV 90.3 MCH 31.5 MCHC 34.9 RDW 14.8 Plt Count 9 L* MPV 10.0 Absolute Nucleated RBC 0.000 Nucleated RBC % (auto) 0.0 Magnesium 1.9 Blood Type O Positive Antibody Screen NEGATIVE Microbiology Microbiology Results: Microbiology 10/12/23 08:42 Blood Culture - Preliminary Blood - Venous No growth after 48 hours. 10/12/23 08:42 Blood Culture - Preliminary Blood - Venous No growth after 48 hours. Assessment and Plan (1) Gram-negative bacteremia: Status: Acute (2) Pancytopenia: Status: Acute (3) Acute myeloid leukemia: Status: Acute (4) Septic shock: Status: Acute (5) Thrombocytopenia: Status: Acute Plan 73/F with acute myeloid leukemia on oral paliative chemotherapy, complicated by pancytopenia, COPD, and HLD, She was admitted through the ICU with septic shock ,pancytopenia, Neutropenic and has gram negative angelina bacteremi and PNA. Presently on Vancomycin, Cefepime and Doxyc. Septic shock due to gram negative bacteremia-required vasopressors in icu -BCx 10/08 and GNR, sensitivity = Pseudomonas, repeat culture 10/11 negative -continue Cefepime. Vanco stopped on 10/12 -ID following Hypotenison --initially d/t septic shock, hypotension on 10/11 d/t anemia and resolved with transfusion Transient AFIB on 10/11-related to anemia, was given dig and metoprolol and converted to sinus -continue metoprolol -no anticoagulation d/t anemia and low platlet, -cardiology following Neutropenia--no fever, WBC 0.5, ANC 0 -Granix daily until WBC 1K per onc -oncology following and think prognosis is poor Pancytopenia--d/t AML,, chemo -transfusion for Hgb < 7 or Plat < 10 -s/p 2 units of RBCs on 10/11 -s/p 6 units of plat since hospitaliatio Acute hypoxic respiratory failure d/t PNA, + parainfluezae--improved -O2 to keep sat 88 to 94, continue Abx as above Hypokalemia--replace, check mag and correct as needed COPD--no excacerbation continue inhalers, and O2 presently sating 96% on 1L Hypothyroidism on levothyroxine -tsh 0.7, levothyxoxine still not verified by pharm, last filled at pharmacy in July for 125 mcg Mood disorder/anxiety -ativan PRN moderate to severe Protein calorie malnutrition -ensure supplement DNI Poor prognosis compression device for DVT d/t anemia and low plat need for inpt: septic shock, bacteremia, neutropenina on IV Abx, cultures pending, not able to do this safely in outpatient setting Prognosis is poor, goals of care discussed with HCP Crystal Grewal, prognosis is poor and hospice is in consideration Quality Stroke Does the patient have a stroke diagnosis?: No VTE Prior VTE?: No VTE Risk Level:: Medical - moderate - high VTE Device Contraindication: N/A - Device Ordered VTE Drug Contraindication: Treatment Not Indicated
[2023-10-15 08:00] VITALS: BP 147/77; PULSE 97; RESP 20; TEMP 36.7; O2SAT 96
[2023-10-15] MEDS: Potassium Chloride ER 20 MEQ TAB.ER.PRT PO (08:00)
[2023-10-15] MEDS: 0.9 % Sodium Chloride Flush 3 ML SYRINGE IVFLUSH ×3 (08:00→22:00)
[2023-10-15] MEDS: Acyclovir 200 MG CAPSULE 400 MG PO ×2 (08:00→21:59)
[2023-10-15] MEDS: Metoprolol Tartrate 25 MG TABLET PO ×2 (08:00→22:00)
[2023-10-15] MEDS: Cyanocobalamin (Vitamin B-12) 1,000 MCG TABLET 1000 MCG PO (08:00)
[2023-10-15] MEDS: allopurinoL 300 MG TABLET PO (08:00)
[2023-10-15 08:20] LABS: Hemoglobin 8.8 g/dl (12.0-16.0)
[2023-10-15 08:22] LABS: Hematocrit 25.5 % (37.0-47.0); Mean Corpuscular HGB Conc 34.5 g/dl (31.0-35.0); Mean Corpuscular Volume 89.8 fL (80.0-98.0); Mean Platelet Volume 10.4 fL (9.4-12.3); Red Blood Count 2.84 X10*6/uL (4.20-5.50); Red Cell Distribution Width 14.8 % (11.0-16.0)
[2023-10-15 08:32] LABS: Platelet Count 25 X10*3/uL (160-400); White Blood Count 0.5 X10*3/uL (4.8-10.8)
[2023-10-15 08:52] LABS: Anion Gap 12 (12-20); Blood Urea Nitrogen 33 mg/dL (9-16); Calcium 8.1 mg/dL (8.4-10.2); Carbon Dioxide 24 mmol/L (22-29); Chloride 109 mmol/L (96-108); Creatinine Clr Calc Pharmacy 49.5; Estimated Glomerular Filt Rate > 60; Glucose Random 257 mg/dL (60-115); Potassium 2.8 mmol/L (3.3-5.1); Sodium 142 mmol/L (135-145)
[2023-10-15 09:15] LABS: Magnesium 1.6 mg/dL (1.6-2.6)
[2023-10-15 11:52] VITALS: BP 141/77; PULSE 89; RESP 20; TEMP 36.4; O2SAT 96
--- NOTE | 2023-10-15 12:12 | P.PNHO-ONC_ITS ---
Medical Summary - Medical Summary Date of Service: 10/15/23 Chief complaint: AML Primary Care Provider: Burt Juarez MD Interval History Interval history: Merline Srinivasan is a 73 year old female from [place] with acute myeloid leukemia [place] [facility] [place]. She is treated at [facility] lately with palliative hydroxyurea. She is admitted with pancytopenia and septic shock to the ICU and has been stabilized. Review of Systems - Constitutional Reports anorexia, Reports body ache(s) - Cardiovascular Reports excessive sweating, Reports fainting, Reports fast heart rate - Respiratory Reports pain on inspiration, Reports pain with cough, Reports snoring - Gastrointestinal Reports abdominal pain - Neurologic Reports confusion, Reports weakness PMFSH Medical History: Medical History (Last Reviewed 10/11/23 @ 23:42 by Mary Alice Alfaro MD) Acute myeloid leukemia Anemia Anemia Anxiety COPD (chronic obstructive pulmonary disease) COPD with asthma Depression Dyspnea Gram-positive bacteremia Hypothyroidism Non-Hodgkin lymphoma in remission Thrombocytopenia Tobacco dependence Family History: Family History (Last Reviewed 10/11/23 @ 23:42 by Mary Alice Alfaro MD) Father CAD (coronary artery disease) Family history: reviewed and not pertinent Surgical History: Surgical History (Last Reviewed 10/11/23 @ 23:42 by Mary Alice Alfaro MD) H/O: hysterectomy History of salpingo-oophorectomy S/P angiogram of extremity Onset Date: 02/13/20 Social History: Social History (Last Reviewed 10/11/23 @ 23:42 by Mary Alice Alfaro MD) Living Situation History: Household Members: None Housing: Apartment Do you presently have visiting nurse or other home services: No Alcohol History: Unable to assess alcohol history related to: Unable to respond Alcohol History Details: 1. How often do you have a drink containing alcohol?: a. Never 3. How often do you have six or more drinks on one occasion?: a. Never AUDIT-C Alcohol total score: 0 Currently Displaying Signs/Symptoms of Alcohol Withdrawal: No Tobacco History: Patient Tobacco Use Status: Current everyday Tobacco Tobacco use type: Cigarette Cigarette Packs Per Day: 1 Years Smoked: 40 Smoked in Last 30 Days: Yes e-Cigarette/Vaping Use: Never Used Patient Interested in Nicotine Replacement: No Patient Given Instructions on How to Stop Smoking: No Second Hand Smoke Exposure: No Second Hand Smoke Exposure comment: not interested Substance Use History: Use of substances other than those prescribed or required for medical reasons : No Currently Displaying Signs/Symptoms of Drug Intoxication Withdrawal: No Any prior treatment program specific to substance use: No Domestic Abuse History: Do you feel safe in your current relationship?: No Current Relationship Is there a partner from a previous relationship who is making you feel unsafe now?: No Are you made to feel afraid or neglected: No Advance Directives: Advance Directives: Yes Advance Directives on File: Yes Advance Directives Date on File: 07/16/21 Homicidal Assessment: Do you have a plan to hurt others: No Plan Nutrition Assessment: Recently lost weight without trying: No Eating poorly because of decreased appetite: No Nutrition Risks: No Nutritional Risk Patient : No : No Poor oral hygiene: No Occupation Assessmet: service: No Current occupational status: retired Home Medications and Allergies Current Medications: Current Medications Acyclovir (Acyclovir 200 Mg Capsule) 400 mg PO BID [facility] Last Admin: 10/15/23 08:00 Dose: 400 mg Allopurinol (Allopurinol 300 Mg Tablet) 300 mg PO DAILY [facility] Last Admin: 10/15/23 08:00 Dose: 300 mg Cyanocobalamin (Cyanocobalamin (Vitamin B-12) 1,000 Mcg Tablet) 1,000 mcg PO DAILY [facility] Last Admin: 10/15/23 08:00 Dose: 1,000 mcg Cefepime HCl 2 gm/ Sodium (Chloride) 50 mls @ 100 mls/hr IV Q12H [facility] Last Infusion: 10/15/23 05:22 Dose: Infused Levothyroxine Sodium (Levothyroxine Sodium 100 Mcg/5 Ml Vial) 50 mcg IVPUSH DAILY@0600 [facility] Last Admin: 10/15/23 07:02 Dose: 50 mcg Lorazepam (Lorazepam 0.5 Mg Tablet) 0.5 mg PO DAILY PRN PRN Reason: anxiety Last Admin: 10/12/23 02:34 Dose: 0.5 mg Metoprolol Tartrate (Metoprolol Tartrate 25 Mg Tablet) 25 mg PO BID [facility]; Protocol Last Admin: 10/15/23 08:00 Dose: 25 mg Pharmacy Consult (Consult Rx Vancomycin Dosing) 1 each MISCELLANE DAILY PRN PRN Reason: Consult order Potassium Chloride (Potassium Chloride Er 20 Meq Tab.Er.Prt) 20 meq PO DAILY [facility] Last Admin: 10/15/23 08:00 Dose: 20 meq Sodium Chloride (0.9 % Sodium Chloride Flush 3 Ml Syringe) 3 ml IVFLUSH QSHIFT [facility] Last Admin: 10/15/23 08:00 Dose: 3 ml Tbo-Filgrastim (Tbo-Filgrastim 300 Mcg/0.5 Ml Syringe) 300 mcg SUBCUT DAILY [facility] Last Admin: 10/14/23 09:11 Dose: 300 mcg Home Medications ?Medication ?Instructions ?Recorded ?Confirmed ?Type acyclovir 400 mg tablet 400 mg PO BID 01/31/20 10/10/23 History levothyroxine 125 mcg tablet 125 mcg PO DAILY@0600 01/31/20 08/12/23 History trazodone 100 mg tablet 100 mg PO BEDTIME 01/31/20 08/12/23 History lorazepam 0.5 mg tablet 0.5 mg PO DAILY PRN anxiety 03/01/22 10/10/23 History cyanocobalamin (vitamin B-12) 1,000 mcg PO DAILY 02/02/23 10/10/23 History 1,000 mcg tablet potassium chloride 20 mEq 20 meq PO DAILY 02/02/23 10/10/23 History tablet,extended release fexofenadine 180 mg tablet 180 mg PO DAILY 07/10/23 08/12/23 History (Nahed Allergy) allopurinol 300 mg tablet 300 mg PO DAILY 10/10/23 10/10/23 History decitabine 35 mg-cedazuridine 100 1 tab PO DAILY 10/10/23 10/10/23 History mg tablet (Inqovi) nystatin 100,000 unit/mL oral 5 ml PO QID 10/10/23 10/10/23 History suspension venetoclax 100 mg tablet See Rx Instructions .Route .COMPLEX 10/10/23 History (Venclexta) Allergies Allergy/AdvReac Type Severity Reaction Status Date / Time adhesive tape Allergy Unknown RASH Verified 10/09/23 15:33 bacitracin [Bacitracin] Allergy Unknown RASH Verified 10/09/23 15:33 Exam Vital signs: Vital Signs Temp 97.6 F 10/15/23 11:52 Pulse 89 10/15/23 11:52 Resp 20 10/15/23 11:52 BP 141/77 H 10/15/23 11:52 Pulse Ox 96 10/15/23 11:52 O2 Del Method Nasal Cannula 10/15/23 11:52 O2 Flow Rate 1.5 10/15/23 11:52 Intake & Output 10/14/23 10/15/23 10/15/23 18:59 06:59 18:59 Intake Total 697.667 / 1267.667 570 / 1267.667 Balance 697.667 / 1267.667 570 / 1267.667 Intake: Intake, Oral Amount 0 / 520 520 / 520 Intake (Blood Product) Amount 566 / 566 Plt Aph Pas Pathreduced(E8342) 274 / 274 Unit [id number] Plt Aph Pas Pathreduced(E8343) 292 / 292 Unit [id number] Intake, IV Amount 131.667 / 181.667 50 / 181.667 0.9 % Sodium Chloride 100 ml @ 81.667 / 81.667 100 mls/hr IV ONCE ONE Rx#: [id number] cefEPime HCl 2 gm In 0.9 % 50 / 100 50 / 100 Sodium Chloride 50 ml @ 100 mls /hr IV Q12H [facility] Rx#:[id number] Other: Meal Refused Yes Breakfast % Eaten 0% Lunch % Eaten 0% Dinner % Eaten 0% Evening Snack % Eaten 100 Eating (Feeding) Ability Set Up only Number of Incontinent Voids 1 4 Urine Color Yellow Last Bowel Movement 10/12/23 10/12/23 Stool Incontinent Weight 49.3 kg 46.2 kg [place] Weight in Grams [phone] Weight 46.2 kg BMI result Body Mass Index 20.6 - Constitutional Present: cachectic - Routine HEENT Exam Head: Present: atraumatic, normal inspection - Routine Chest/Breast/Axilla Exam Breast: Present: Normal Exam - Routine Respiratory Exam Present: decreased breath sounds, rhonchi, wheezes - Routine Cardiovascular Exam Cardiovascular: Present: RRR, tachycardia - Routine Abdominal Exam Present: diminished bowel sounds, nontender - Routine Extremities Exam Present: nontender (mediport right chest wall) Data - Labs CBC & Chem 7: 10/15/23 07:56 10/15/23 07:56 Labs: Laboratory Last Values WBC 0.5 X10*3/uL (4.8-10.8) L* 10/15/23 07:56 RBC 2.84 X10*6/uL (4.20-5.50) L 10/15/23 07:56 Hgb 8.8 g/dl (12.0-16.0) L 10/15/23 07:56 Hct 25.5 % (37.0-47.0) L 10/15/23 07:56 MCV 89.8 fL (80.0-98.0) 10/15/23 07:56 MCH 31.0 pg (27.0-33.0) 10/15/23 07:56 MCHC 34.5 g/dl (31.0-35.0) 10/15/23 07:56 RDW 14.8 % (11.0-16.0) 10/15/23 07:56 Plt Count 25 X10*3/uL (160-400) L D 10/15/23 07:56 MPV 10.4 fL (9.4-12.3) 10/15/23 07:56 Immature Gran % (Auto) 0.0 % (0.0-0.4) 10/11/23 07:02 Neut % (Auto) 42.9 % (45-73) L 10/11/23 07:02 Lymph % (Auto) 47.6 % (20-40) H 10/11/23 07:02 [place] % (Auto) 9.5 % (2-11) 10/11/23 07:02 Eos % (Auto) 0.0 % (0-4) 10/11/23 07:02 Baso % (Auto) 0.0 % (0-2) 10/11/23 07:02 Lymph # (Auto) 0.1 X10*3/uL (1.2-4.9) L 10/11/23 07:02 [place] # (Auto) 0.0 X10*3/uL (0.1-1.2) L 10/11/23 07:02 Eos # (Auto) 0.0 X10*3/uL (0.0-0.4) 10/11/23 07:02 Baso # (Auto) 0.0 X10*3/uL (0.0-0.2) 10/11/23 07:02 Abs Immat Gran (auto) 0.00 X10*3/uL (0.00-0.03) 10/11/23 07:02 Absolute Neuts (auto) 0.1 x10*3/uL (2.0-8.3) L 10/11/23 07:02 Absolute Nucleated RBC 0.000 X10*3/uL (0.0-0.012) 10/15/23 07:56 Nucleated RBC % (auto) 0.0 /100WBC (0.0-0.2) 10/15/23 07:56 Smear Tech's Comments VERIFIED 10/11/23 07:02 Hold Purple Top SEE NOTE 10/12/23 08:40 PT 31.1 SEC (11.1-13.3) H 10/10/23 05:22 INR 2.6 (0.9-1.1) H 10/10/23 05:22 VBG pH 7.32 (7.32-7.43) 10/11/23 07:10 VBG pCO2 47 mmHg 10/11/23 07:10 VBG pO2 59 mmHg 10/11/23 07:10 VBG HCO3 25 mmol/L (22-26) 10/11/23 07:10 VBG O2 Saturation 84.0 % 10/11/23 07:10 VBG Base Excess -0.5 mmol/L 10/11/23 07:10 Sodium 142 mmol/L (135-145) 10/15/23 07:56 Potassium 2.8 mmol/L (3.3-5.1) L* 10/15/23 07:56 Chloride 109 mmol/L (96-108) H 10/15/23 07:56 Carbon Dioxide 24 mmol/L (22-29) 10/15/23 07:56 Anion Gap 12 (12-20) 10/15/23 07:56 BUN 33 mg/dL (9-16) H 10/15/23 07:56 Creatinine 0.69 mg/dL (0.5-1.4) 10/15/23 07:56 Estim Creat Clear Calc 49.5 10/15/23 07:56 Estimated GFR > 60 10/15/23 07:56 Random Glucose 257 mg/dL (60-115) H 10/15/23 07:56 Lactic Acid 3.0 mmol/L (0.5-2.0) H* 10/12/23 08:37 Lactic Acid F/U @ 2Hr 2.0 mmol/L (0.5-2.0) 10/12/23 11:25 Lactic Acid F/U @ 4Hr 1.4 mmol/L (0.5-2.0) 10/09/23 21:08 Calcium 8.1 mg/dL (8.4-10.2) L 10/15/23 07:56 Phosphorus 3.6 mg/dL (2.7-4.5) 10/11/23 07:02 Magnesium 1.6 mg/dL (1.6-2.6) 10/15/23 07:56 Total Bilirubin 1.4 mg/dL (0.0-1.0) H 10/12/23 08:40 AST 110 U/L (5-31) H 10/12/23 08:40 ALT 106 U/L (0-31) H 10/12/23 08:40 Alkaline Phosphatase 97 U/L (39-117) 10/12/23 08:40 Troponin I High Sens 49.1 ng/L (<3.5-17.0) H D 10/12/23 08:40 Total Protein 4.6 g/dL (6.5-8.0) L 10/12/23 08:40 Albumin 3.1 g/dL (3.5-5.0) L 10/12/23 08:40 TSH 0.70 uIU/mL (0.32-4.0) 10/11/23 07:02 Urine Color Dark Yellow 10/09/23 16:07 Urine Appearance Clear 10/09/23 16:07 Urine pH 6.0 (5.0-9.0) 10/09/23 16:07 Ur Specific [place] 1.020 (1.005-1.025) 10/09/23 16:07 Urine Protein 30 (1+) mg/dL (Neg-Trace) H 10/09/23 16:07 Urine Glucose (UA) Negative mg/dL (Negative) 10/09/23 16:07 Urine Ketones Trace mg/dL (Negative) 10/09/23 16:07 Urine Blood Small (1+) (Negative) H 10/09/23 16:07 Urine Nitrite Negative (Negative) 10/09/23 16:07 Ur Leukocyte Esterase Negative (Negative) 10/09/23 16:07 Urine RBC 11-20 /HPF (0-2) H 10/09/23 16:07 Urine WBC 0-5 /HPF (0-5) 10/09/23 16:07 Ur Squamous Epith Cells 0-2 /HPF (0-2) 10/09/23 16:07 Urine Bacteria None Seen (None Seen) 10/09/23 16:07 Hyaline Casts 0-2 /LPF (0-2) 10/09/23 16:07 Random Vancomycin 18.2 mcg/mL (15-20) 10/12/23 06:20 Respiratory Panel Gar See Note 10/10/23 09:51 Adenovirus (Rapid PCR) Not Detected (Not Detect.) 10/10/23 09:51 A.phagocytophil DNA PCR NOT DETECTED (NOT DETECTED) 10/09/23 21:08 Babesia microti DNA PCR NOT DETECTED (NOT DETECTED) 10/09/23 21:08 B.pert (TEM-PCR) Not Detected (Not Detect.) 10/10/23 09:51 B.parapertussis DNA PCR Not Detected (Not Detect.) 10/10/23 09:51 Borrelia sp DNA (PCR) NOT DETECTED (NOT DETECTED) 10/09/23 21:08 Borrelia miyamotoi (PCR) NOT DETECTED (NOT DETECTED) 10/09/23 21:08 C. pneumoniae DNA (PCR) Not Detected (Not Detect.) 10/10/23 09:51 Coronavirus OC43 (PCR) Not Detected (Not Detect.) 10/10/23 09:51 Coronavirus HKU1 (PCR) Not Detected (Not Detect.) 10/10/23 09:51 Coronavirus 229E (PCR) Not Detected (Not Detect.) 10/10/23 09:51 Coronavirus NL63 (PCR) Not Detected (Not Detect.) 10/10/23 09:51 E.chaffeensis DNA (PCR) NOT DETECTED (NOT DETECTED) 10/09/23 21:08 Human Metapneumovir PCR Not Detected (Not Detect.) 10/10/23 09:51 Influenza A (RT-PCR) Not Detected (Not Detect.) 10/10/23 09:51 Influenza Type A (PCR) NEGATIVE (Negative) 10/09/23 15:58 Influenza B (RT-PCR) Not Detected (Not Detect.) 10/10/23 09:51 Influenza Type B (PCR) NEGATIVE (Negative) 10/09/23 15:58 M. pneumoniae (PCR) Not Detected (Not Detect.) 10/10/23 09:51 Parainfluenza 1 (PCR) Not Detected (Not Detect.) 10/10/23 09:51 Parainfluenza 2 (PCR) Not Detected (Not Detect.) 10/10/23 09:51 Parainfluenza 3 (PCR) Detected (Not Detect.) A 10/10/23 09:51 Parainfluenza 4 (PCR) Not Detected (Not Detect.) 10/10/23 09:51 RSV (PCR) Not Detected (Not Detect.) 10/10/23 09:51 RSV RNA Qual (PCR) NEGATIVE (Negative) 10/09/23 15:58 Entero/Rhino (PCR) Not Detected (Not Detect.) 10/10/23 09:51 SARS-CoV-2 RNA (RT-PCR) Not Detected (Not Detect.) 10/10/23 09:51 Tick-borne Disease PCR SEE NOTE 10/09/23 21:08 Blood Type O Positive 10/13/23 08:33 Antibody Screen NEGATIVE 10/13/23 08:33 Crossmatch See Detail 10/09/23 18:17 - Imaging Radiologist's impression: ITS Impressions Chest X-Ray 10/09/23 16:40 IMPRESSION: 1. No radiographic evidence of acute infiltrates or failure. 2. Port-A-Cath remain in place properly positioned. Abdomen/Pelvis CT 10/09/23 20:21 IMPRESSION: CT scan of the chest: * Interval development of multifocal irregular masslike opacifications in the lungs bilaterally, most prominently involving the left lung apex. Findings are suspicious for multifocal infectious or inflammatory nodules. In the appropriate clinical setting, entities such as septic emboli can also be considered in the differential. * Mild interstitial pulmonary edema is seen. * Calcified mediastinal and hilar lymph nodes, consistent with granulomatous lung disease. CT scan of the abdomen and pelvis: * Mild fluid distention of the small bowel loops with scattered air-fluid levels. This is a nonspecific finding and may be related to a diffuse gastroenteritis. No evidence of obstruction or perforation. * Prominent rectal distention with fecal material moderate volume liquid stool in the left colon noted. * Prominent atherosclerotic vascular disease. Chest CT 10/09/23 20:21 IMPRESSION: CT scan of the chest: * Interval development of multifocal irregular masslike opacifications in the lungs bilaterally, most prominently involving the left lung apex. Findings are suspicious for multifocal infectious or inflammatory nodules. In the appropriate clinical setting, entities such as septic emboli can also be considered in the differential. * Mild interstitial pulmonary edema is seen. * Calcified mediastinal and hilar lymph nodes, consistent with granulomatous lung disease. CT scan of the abdomen and pelvis: * Mild fluid distention of the small bowel loops with scattered air-fluid levels. This is a nonspecific finding and may be related to a diffuse gastroenteritis. No evidence of obstruction or perforation. * Prominent rectal distention with fecal material moderate volume liquid stool in the left colon noted. * Prominent atherosclerotic vascular disease. Assessment and Plan Patient Active problem list reviewed?: Yes (1) Acute myeloid leukemia Status: Acute Assessment and plan: She will need an ID consult, growth factor and blood product support, broad spectrum antibiotics and neutropenic precautions. I will follow daily. - Time Spent With Patient Time Spent with Patient (in minutes): 20
[2023-10-15] MEDS: Potassium Chloride Packet 20 MEQ PACKET 40 MEQ PO (12:13)
[2023-10-15] MEDS: Tbo-Filgrastim 300 MCG/0.5 ML SYRINGE SUBCUT (15:18)
[2023-10-15 15:36] VITALS: BP 119/64; PULSE 91; RESP 20; TEMP 36.4; O2SAT 96
[2023-10-15 18:46] VITALS: BP 125/60; PULSE 94; RESP 20; TEMP 36.1; O2SAT 95
[2023-10-15 22:15] LABS: Anion Gap 13 (12-20); Carbon Dioxide 22 mmol/L (22-29); Chloride 110 mmol/L (96-108); Potassium 3.3 mmol/L (3.3-5.1); Sodium 142 mmol/L (135-145)
[2023-10-16] VITALS (7 sets, daily range): BP systolic 115–140; BP diastolic 58–63; PULSE 85–100; RESP 15–20; TEMP 36.3–37.6; O2SAT 2–95; BMI 21.6
[2023-10-16] MEDS: cefEPime HCl 2 GM in 0.9 % Sodium Chloride 50 ML IV ×2 (05:50→15:37)
[2023-10-16] MEDS: Levothyroxine Sodium 100 MCG/5 ML VIAL 50 MCG IVPUSH (05:50)
[2023-10-16 07:10] LABS: Hemoglobin 9.2 g/dl (12.0-16.0); Mean Corpuscular Volume 90.9 fL (80.0-98.0); PLT CLUMP 1
[2023-10-16 07:12] LABS: Hematocrit 27.1 % (37.0-47.0); Mean Corpuscular HGB Conc 33.9 g/dl (31.0-35.0); Mean Corpuscular Hemoglobin 30.9 pg (27.0-33.0); Mean Platelet Volume 10.7 fL (9.4-12.3); Red Blood Count 2.98 X10*6/uL (4.20-5.50); Red Cell Distribution Width 15.4 % (11.0-16.0)
[2023-10-16 07:25] LABS: White Blood Count 0.7 X10*3/uL (4.8-10.8)
[2023-10-16 07:26] LABS: Platelet Count 12 X10*3/uL (160-400)
[2023-10-16 08:22] LABS: Anion Gap 13 (12-20); Blood Urea Nitrogen 26 mg/dL (9-16); Calcium 8.3 mg/dL (8.4-10.2); Carbon Dioxide 21 mmol/L (22-29); Chloride 108 mmol/L (96-108); Estimated Glomerular Filt Rate > 60; Glucose Random 212 mg/dL (60-115); Potassium 2.9 mmol/L (3.3-5.1); Sodium 139 mmol/L (135-145)
[2023-10-16] MEDS: Cyanocobalamin (Vitamin B-12) 1,000 MCG TABLET 1000 MCG PO (09:21)
[2023-10-16] MEDS: Potassium Chloride ER 20 MEQ TAB.ER.PRT PO (09:22)
[2023-10-16] MEDS: 0.9 % Sodium Chloride Flush 3 ML SYRINGE IVFLUSH ×3 (09:22→20:36)
[2023-10-16] MEDS: allopurinoL 300 MG TABLET PO (09:22)
[2023-10-16] MEDS: Acyclovir 200 MG CAPSULE 400 MG PO ×2 (09:22→20:34)
[2023-10-16] MEDS: Metoprolol Tartrate 25 MG TABLET PO ×2 (09:22→20:36)
--- NOTE | 2023-10-16 10:41 | HO.PM.IMPN ---
Subjective Subjective Date of Service: 10/16/23 Interval History: seen and examined this AM feeling okay no new complaints Review of Systems Negative except HPI/interval history. Physical Exam Vital Signs: Vital Signs: Last Vital Signs Temp 97.3 F 10/16/23 07:42 Pulse 85 10/16/23 07:42 Resp 16 10/16/23 07:42 BP 122/58 L 10/16/23 07:42 Pulse Ox 94 10/16/23 07:42 O2 Del Method Nasal Cannula 10/16/23 07:42 O2 Flow Rate 1 10/16/23 07:42 BMI result Body Mass Index 21.6 Const: Other: General: oriented to self, frail, emaciated, no distress Resp: CTA bilateral, normal effore CVS: S1,S2,RRR GI: +BS, NT, no distention Skin: No rash Neuro: motor grossly intact Psych: flat Objective Data Active Medications Acyclovir (Acyclovir 200 Mg Capsule) 400 mg PO BID [facility] Last Admin: 10/16/23 09:22 Dose: 400 mg Documented By: KAYCE Allopurinol (Allopurinol 300 Mg Tablet) 300 mg PO DAILY [facility] Last Admin: 10/16/23 09:22 Dose: 300 mg Documented By: KAYCE Cyanocobalamin (Cyanocobalamin (Vitamin B-12) 1,000 Mcg Tablet) 1,000 mcg PO DAILY [facility] Last Admin: 10/16/23 09:21 Dose: 1,000 mcg Documented By: KAYCE Cefepime HCl 2 gm/ Sodium (Chloride) 50 mls @ 100 mls/hr IV Q12H [facility] Last Infusion: 10/16/23 07:06 Dose: Infused Documented By: JOANA Levothyroxine Sodium (Levothyroxine Sodium 100 Mcg/5 Ml Vial) 50 mcg IVPUSH DAILY@0600 [facility] Last Admin: 10/16/23 05:50 Dose: 50 mcg Documented By: JOANA Lorazepam (Lorazepam 0.5 Mg Tablet) 0.5 mg PO DAILY PRN PRN Reason: anxiety Last Admin: 10/12/23 02:34 Dose: 0.5 mg Documented By: MICHELL Metoprolol Tartrate (Metoprolol Tartrate 25 Mg Tablet) 25 mg PO BID [facility]; Protocol Last Admin: 10/16/23 09:22 Dose: 25 mg Documented By: KAYCE Potassium Chloride (Potassium Chloride Er 20 Meq Tab.Er.Prt) 20 meq PO DAILY [facility] Last Admin: 10/16/23 09:22 Dose: 20 meq Documented By: KAYCE Sodium Chloride (0.9 % Sodium Chloride Flush 3 Ml Syringe) 3 ml IVFLUSH QSHIFT [facility] Last Admin: 10/16/23 09:22 Dose: 3 ml Documented By: KAYCE Tbo-Filgrastim (Tbo-Filgrastim 300 Mcg/0.5 Ml Syringe) 300 mcg SUBCUT DAILY [facility] Last Admin: 10/15/23 15:18 Dose: 300 mcg Documented By: PINEDA Labs 10/16/23 07:01 10/16/23 07:01 Labs: Laboratory Results - last 24 hr 10/15/23 10/16/23 21:48 07:01 MCV 90.9 MCH 30.9 MCHC 33.9 RDW 15.4 Plt Count 12 L* D MPV 10.7 Absolute Nucleated RBC 0.000 Nucleated RBC % (auto) 0.0 Anion Gap 13 13 Estim Creat Clear Calc 56.0 Estimated GFR > 60 Random Glucose 212 H Calcium 8.3 L Assessment and Plan (1) Gram-negative bacteremia: Status: Acute Plan 73/F with acute myeloid leukemia on oral paliative chemotherapy, complicated by pancytopenia, COPD, and HLD, She was admitted through the ICU with septic shock ,pancytopenia, Neutropenic and has gram negative angelina bacteremi and PNA. Presently on Vancomycin, Cefepime and Doxyc. Septic shock due to psuedomonas bacteremia-required vasopressors in icu repeat blood cx negative continue cefepime -- ? 3 weeks, will d/w ID Hypotenison initially d/t septic shock hypotension on 10/11 d/t anemia resolved Transient AFIB on 10/11-related to anemia, was given dig and metoprolol and converted to sinus -continue metoprolol -no anticoagulation d/t anemia and low platlet, -cardiology following Neutropenia--no fever, WBC 0.5, ANC 0 -Granix daily until WBC 1K per onc -oncology following and think prognosis is poor Pancytopenia--d/t AML,, chemo -transfusion for Hgb < 7 or Plat < 10 -s/p 2 units of RBCs on 10/11 -s/p 6 units of plat since hospitaliatio Acute hypoxic respiratory failure d/t PNA, + parainfluezae--improved -O2 to keep sat 88 to 94, continue Abx as above Hypokalemia--replace, check mag and correct as needed COPD--no excacerbation continue inhalers, and O2 presently sating 96% on 1L Hypothyroidism on levothyroxine -tsh 0.7, levothyxoxine still not verified by pharm, last filled at pharmacy in July for 125 mcg Mood disorder/anxiety -ativan PRN moderate to severe Protein calorie malnutrition -ensure supplement DNI Poor prognosis compression device for DVT d/t anemia and low plat need to hospitalization -- panyctopenia, treatment for pseudomonas bacteremia Quality Stroke Does the patient have a stroke diagnosis?: No VTE Prior VTE?: No VTE Risk Level:: Medical - moderate - high VTE Device Contraindication: N/A - Device Ordered VTE Drug Contraindication: Treatment Not Indicated
--- NOTE | 2023-10-16 10:54 | P.PNHO-ONC_ITS ---
Medical Summary - Medical Summary Date of Service: 10/16/23 Primary Care Provider: Burt Juarez MD Interval History Interval history: Merline Srinivasan is a 73 year old female from [place] with acute myeloid leukemia treated with induction chemotherapy at [facility] who relapsed. She is treated at [facility] lately with palliative hydroxyurea. She is admitted with pancytopenia and septic shock to the ICU and has been stabilized. Review of Systems - Constitutional Reports anorexia - ENT Reports dizziness - Cardiovascular Reports chest pain with activity, Reports shortness of breath - Respiratory Reports cough - Gastrointestinal Reports constipation - Neurologic Reports confusion, Reports syncope, Reports weakness [facility] Medical History: Medical History (Last Reviewed 10/11/23 @ 23:42 by Mary Alice Alfaro MD) Acute myeloid leukemia Anemia Anemia Anxiety COPD (chronic obstructive pulmonary disease) COPD with asthma Depression Dyspnea Gram-positive bacteremia Hypothyroidism Non-Hodgkin lymphoma in remission Thrombocytopenia Tobacco dependence Family History: Family History (Last Reviewed 10/11/23 @ 23:42 by Mary Alice Alfaro MD) Father CAD (coronary artery disease) Family history: reviewed and not pertinent Surgical History: Surgical History (Last Reviewed 10/11/23 @ 23:42 by Mary Alice Alfaro MD) H/O: hysterectomy History of salpingo-oophorectomy S/P angiogram of extremity Onset Date: 02/13/20 Social History: Social History (Last Reviewed 10/11/23 @ 23:42 by Mary Alice Alfaro MD) Living Situation History: Household Members: None Housing: Apartment Do you presently have visiting nurse or other home services: No Alcohol History: Unable to assess alcohol history related to: Unable to respond Alcohol History Details: 1. How often do you have a drink containing alcohol?: a. Never 3. How often do you have six or more drinks on one occasion?: a. Never AUDIT-C Alcohol total score: 0 Currently Displaying Signs/Symptoms of Alcohol Withdrawal: No Tobacco History: Patient Tobacco Use Status: Current everyday Tobacco Tobacco use type: Cigarette Cigarette Packs Per Day: 1 Years Smoked: 40 Smoked in Last 30 Days: Yes e-Cigarette/Vaping Use: Never Used Patient Interested in Nicotine Replacement: No Patient Given Instructions on How to Stop Smoking: No Second Hand Smoke Exposure: No Second Hand Smoke Exposure comment: not interested Substance Use History: Use of substances other than those prescribed or required for medical reasons : No Currently Displaying Signs/Symptoms of Drug Intoxication Withdrawal: No Any prior treatment program specific to substance use: No Domestic Abuse History: Do you feel safe in your current relationship?: No Current Relationship Is there a partner from a previous relationship who is making you feel unsafe now?: No Are you made to feel afraid or neglected: No Advance Directives: Advance Directives: Yes Advance Directives on File: Yes Advance Directives Date on File: 07/16/21 Homicidal Assessment: Do you have a plan to hurt others: No Plan Nutrition Assessment: Recently lost weight without trying: No Eating poorly because of decreased appetite: No Nutrition Risks: No Nutritional Risk Patient : No : No Poor oral hygiene: No Occupation Assessmet: service: No Current occupational status: retired Home Medications and Allergies Current Medications: Current Medications Acyclovir (Acyclovir 200 Mg Capsule) 400 mg PO BID [facility] Last Admin: 10/16/23 09:22 Dose: 400 mg Allopurinol (Allopurinol 300 Mg Tablet) 300 mg PO DAILY [facility] Last Admin: 10/16/23 09:22 Dose: 300 mg Cyanocobalamin (Cyanocobalamin (Vitamin B-12) 1,000 Mcg Tablet) 1,000 mcg PO DAILY [facility] Last Admin: 10/16/23 09:21 Dose: 1,000 mcg Cefepime HCl 2 gm/ Sodium (Chloride) 50 mls @ 100 mls/hr IV Q12H [facility] Last Infusion: 10/16/23 07:06 Dose: Infused Potassium Chloride (Potassium Chloride/H20) 10 meq in 100 mls @ 100 mls/hr IV Q1H [facility] Stop: 10/16/23 14:59 Levothyroxine Sodium (Levothyroxine Sodium 100 Mcg/5 Ml Vial) 50 mcg IVPUSH DAILY@0600 [facility] Last Admin: 10/16/23 05:50 Dose: 50 mcg Lorazepam (Lorazepam 0.5 Mg Tablet) 0.5 mg PO DAILY PRN PRN Reason: anxiety Last Admin: 10/12/23 02:34 Dose: 0.5 mg Metoprolol Tartrate (Metoprolol Tartrate 25 Mg Tablet) 25 mg PO BID [facility]; Protocol Last Admin: 10/16/23 09:22 Dose: 25 mg Potassium Chloride (Potassium Chloride Er 20 Meq Tab.Er.Prt) 20 meq PO DAILY [facility] Last Admin: 10/16/23 09:22 Dose: 20 meq Sodium Chloride (0.9 % Sodium Chloride Flush 3 Ml Syringe) 3 ml IVFLUSH QSHIFT [facility] Last Admin: 10/16/23 09:22 Dose: 3 ml Tbo-Filgrastim (Tbo-Filgrastim 300 Mcg/0.5 Ml Syringe) 300 mcg SUBCUT DAILY [facility] Last Admin: 10/15/23 15:18 Dose: 300 mcg Home Medications ?Medication ?Instructions ?Recorded ?Confirmed ?Type acyclovir 400 mg tablet 400 mg PO BID 01/31/20 10/10/23 History levothyroxine 125 mcg tablet 125 mcg PO DAILY@0600 01/31/20 08/12/23 History trazodone 100 mg tablet 100 mg PO BEDTIME 01/31/20 08/12/23 History lorazepam 0.5 mg tablet 0.5 mg PO DAILY PRN anxiety 03/01/22 10/10/23 History cyanocobalamin (vitamin B-12) 1,000 mcg PO DAILY 02/02/23 10/10/23 History 1,000 mcg tablet potassium chloride 20 mEq 20 meq PO DAILY 02/02/23 10/10/23 History tablet,extended release fexofenadine 180 mg tablet 180 mg PO DAILY 07/10/23 08/12/23 History (Nahed Allergy) allopurinol 300 mg tablet 300 mg PO DAILY 10/10/23 10/10/23 History decitabine 35 mg-cedazuridine 100 1 tab PO DAILY 10/10/23 10/10/23 History mg tablet (Inqovi) nystatin 100,000 unit/mL oral 5 ml PO QID 10/10/23 10/10/23 History suspension venetoclax 100 mg tablet See Rx Instructions .Route .COMPLEX 10/10/23 History (Venclexta) Allergies Allergy/AdvReac Type Severity Reaction Status Date / Time adhesive tape Allergy Unknown RASH Verified 10/09/23 15:33 bacitracin [Bacitracin] Allergy Unknown RASH Verified 10/09/23 15:33 Exam Vital signs: Vital Signs Temp 97.3 F 10/16/23 07:42 Pulse 85 10/16/23 07:42 Resp 16 10/16/23 07:42 BP 122/58 L 10/16/23 07:42 Pulse Ox 94 10/16/23 07:42 O2 Del Method Nasal Cannula 10/16/23 07:42 O2 Flow Rate 1 10/16/23 07:42 Intake & Output 10/15/23 10/16/23 10/16/23 18:59 06:59 18:59 Intake Total 410 / 800 390 / 800 50 / 50 Output Total 2 / 2 Balance 410 / 798 388 / 798 50 / 50 Intake: Intake, Oral Amount 360 / 750 390 / 750 Intake, IV Amount 50 / 50 50 / 50 cefEPime HCl 2 gm In 0.9 % 50 / 50 50 / 50 Sodium Chloride 50 ml @ 100 mls /hr IV Q12H [facility] Rx#:[id number] Output: Output, Urine/Stool Mix Amount 2 / 2 Other: Meal Refused No NPO No Breakfast % Eaten 25% Lunch % Eaten 25% Dinner % Eaten 25% Number of Incontinent Voids 3 2 Number of Bowel Movements 2 Urine inc Urine Color Yellow Last Bowel Movement 10/16/23 Stool Incontinent Incontinent Stool Amount Moderate Moderate Stool Color Brown Brown Stool Consistency Soft Loose Weight 48.5 kg Weight in Grams [id number] Weight 48.5 kg BMI result Body Mass Index 21.6 - Constitutional Present: no acute distress, cachectic - Routine HEENT Exam Head: Present: atraumatic, normal inspection - Routine Neck Exam Present: full ROM - Routine Respiratory Exam Present: decreased breath sounds, rhonchi, wheezes - Routine Cardiovascular Exam Cardiovascular: Present: RRR, tachycardia - Routine Abdominal Exam Present: diminished bowel sounds, nontender - Routine Extremities Exam Present: nontender (mediport right chest wall) Data - Labs CBC & Chem 7: 10/16/23 07:01 10/16/23 07:01 - Imaging Radiologist's impression: ITS Impressions Chest X-Ray 10/09/23 16:40 IMPRESSION: 1. No radiographic evidence of acute infiltrates or failure. 2. Port-A-Cath remain in place properly positioned. Abdomen/Pelvis CT 10/09/23 20:21 IMPRESSION: CT scan of the chest: * Interval development of multifocal irregular masslike opacifications in the lungs bilaterally, most prominently involving the left lung apex. Findings are suspicious for multifocal infectious or inflammatory nodules. In the appropriate clinical setting, entities such as septic emboli can also be considered in the differential. * Mild interstitial pulmonary edema is seen. * Calcified mediastinal and hilar lymph nodes, consistent with granulomatous lung disease. CT scan of the abdomen and pelvis: * Mild fluid distention of the small bowel loops with scattered air-fluid levels. This is a nonspecific finding and may be related to a diffuse gastroenteritis. No evidence of obstruction or perforation. * Prominent rectal distention with fecal material moderate volume liquid stool in the left colon noted. * Prominent atherosclerotic vascular disease. Chest CT 10/09/23 20:21 IMPRESSION: CT scan of the chest: * Interval development of multifocal irregular masslike opacifications in the lungs bilaterally, most prominently involving the left lung apex. Findings are suspicious for multifocal infectious or inflammatory nodules. In the appropriate clinical setting, entities such as septic emboli can also be considered in the differential. * Mild interstitial pulmonary edema is seen. * Calcified mediastinal and hilar lymph nodes, consistent with granulomatous lung disease. CT scan of the abdomen and pelvis: * Mild fluid distention of the small bowel loops with scattered air-fluid levels. This is a nonspecific finding and may be related to a diffuse gastroenteritis. No evidence of obstruction or perforation. * Prominent rectal distention with fecal material moderate volume liquid stool in the left colon noted. * Prominent atherosclerotic vascular disease. Assessment and Plan Patient Active problem list reviewed?: Yes (1) Acute myeloid leukemia Status: Acute Assessment and plan: She will need an ID consult, growth factor and blood product support, broad spectrum antibiotics and neutropenic precautions. I will follow daily. The potassium is only 2.9 and will need repletion. Her wbc is rising. - Time Spent With Patient Time Spent with Patient (in minutes): 15
[2023-10-16 11:13] LABS: Magnesium 1.5 mg/dL (1.6-2.6)
[2023-10-16] MEDS: Tbo-Filgrastim 300 MCG/0.5 ML SYRINGE SUBCUT (11:14)
[2023-10-16] MEDS: Potassium Chloride/H20 10 MEQ/100 ML PIGGYBACK 100 MEQ IV ×4 (11:19→14:24)
[2023-10-16] MEDS: Magnesium Sulfate/H2O 2 GM/50 ML PIGGYBACK IV (16:18)
[2023-10-17] VITALS (12 sets, daily range): BP systolic 94–122; BP diastolic 48–60; PULSE 90–104; RESP 14–20; TEMP 36.1–38.2; O2SAT 91–95; BMI 20.3
[2023-10-17] MEDS: oxyCODONE HCl Immed Release 5 MG TABLET 2.5 MG PO (01:25)
[2023-10-17] MEDS: Levothyroxine Sodium 100 MCG/5 ML VIAL 50 MCG IVPUSH (05:16)
[2023-10-17] MEDS: cefEPime HCl 2 GM in 0.9 % Sodium Chloride 50 ML IV (05:16)
[2023-10-17 06:39] LABS: Anion Gap 14 (12-20); Blood Urea Nitrogen 19 mg/dL (9-16); Calcium 7.9 mg/dL (8.4-10.2); Carbon Dioxide 21 mmol/L (22-29); Chloride 105 mmol/L (96-108); Creatinine Clr Calc Pharmacy 57.9; Estimated Glomerular Filt Rate > 60; Glucose Random 177 mg/dL (60-115); Potassium 2.7 mmol/L (3.3-5.1); Sodium 137 mmol/L (135-145)
[2023-10-17 07:05] LABS: Hematocrit 25.5 % (37.0-47.0); Hemoglobin 8.7 g/dl (12.0-16.0); Mean Corpuscular HGB Conc 34.1 g/dl (31.0-35.0); Mean Corpuscular Hemoglobin 30.6 pg (27.0-33.0); Mean Corpuscular Volume 89.8 fL (80.0-98.0); Mean Platelet Volume 12.5 fL (9.4-12.3); Red Blood Count 2.84 X10*6/uL (4.20-5.50); Red Cell Distribution Width 15.1 % (11.0-16.0)
[2023-10-17 07:27] LABS: White Blood Count 0.6 X10*3/uL (4.8-10.8)
[2023-10-17 07:28] LABS: NRBC Pct Auto 3.6 /100WBC (0.0-0.2); Platelet Count 6 X10*3/uL (160-400)
[2023-10-17] MEDS: allopurinoL 300 MG TABLET PO (08:18)
[2023-10-17] MEDS: Potassium Chloride ER 20 MEQ TAB.ER.PRT 40 MEQ PO (08:18)
[2023-10-17] MEDS: Cyanocobalamin (Vitamin B-12) 1,000 MCG TABLET 1000 MCG PO (08:19)
[2023-10-17] MEDS: 0.9 % Sodium Chloride Flush 3 ML SYRINGE IVFLUSH ×2 (08:19→23:08)
[2023-10-17] MEDS: Potassium Chloride ER 20 MEQ TAB.ER.PRT PO (08:19)
[2023-10-17] MEDS: Acyclovir 200 MG CAPSULE 400 MG PO ×2 (08:19→20:43)
[2023-10-17] MEDS: Tbo-Filgrastim 300 MCG/0.5 ML SYRINGE SUBCUT (10:30)
--- NOTE | 2023-10-17 10:54 | HO.PM.IMPN ---
Subjective Subjective Date of Service: 10/17/23 Interval History: No new complaint, plat still low, wbc only 0.6 Review of Systems Negative except HPI/interval history. Physical Exam Vital Signs: Vital Signs: Last Vital Signs Temp 98.6 F 10/17/23 09:40 Pulse 98 10/17/23 09:40 Resp 14 10/17/23 09:40 BP 96/58 L 10/17/23 09:40 Pulse Ox 93 10/17/23 08:00 O2 Del Method Nasal Cannula 10/17/23 08:00 O2 Flow Rate 2 10/17/23 08:00 BMI result Body Mass Index 21.6 Objective Data Active Medications Acyclovir (Acyclovir 200 Mg Capsule) 400 mg PO BID [facility] Last Admin: 10/17/23 08:19 Dose: 400 mg Documented By: BENNETT Allopurinol (Allopurinol 300 Mg Tablet) 300 mg PO DAILY [facility] Last Admin: 10/17/23 08:18 Dose: 300 mg Documented By: BENNETT Cyanocobalamin (Cyanocobalamin (Vitamin B-12) 1,000 Mcg Tablet) 1,000 mcg PO DAILY [facility] Last Admin: 10/17/23 08:19 Dose: 1,000 mcg Documented By: BENNETT Cefepime HCl 2 gm/ Sodium (Chloride) 50 mls @ 100 mls/hr IV Q12H [facility] Last Infusion: 10/17/23 06:34 Dose: Infused Documented By: SHARMIN Levothyroxine Sodium (Levothyroxine Sodium 100 Mcg/5 Ml Vial) 50 mcg IVPUSH DAILY@0600 [facility] Last Admin: 10/17/23 05:16 Dose: 50 mcg Documented By: SHARMIN Lorazepam (Lorazepam 0.5 Mg Tablet) 0.5 mg PO DAILY PRN PRN Reason: anxiety Last Admin: 10/12/23 02:34 Dose: 0.5 mg Documented By: MICHELL Metoprolol Tartrate (Metoprolol Tartrate 25 Mg Tablet) 25 mg PO BID [facility]; Protocol Last Admin: 10/17/23 08:17 Dose: Not Given Documented By: BENNETT Non-Admin Reason: BP 94/58 Potassium Chloride (Potassium Chloride Er 20 Meq Tab.Er.Prt) 20 meq PO DAILY [facility] Last Admin: 08/26/24 08:19 Dose: 20 meq Documented By: BENNETT Sodium Chloride (0.9 % Sodium Chloride Flush 3 Ml Syringe) 3 ml IVFLUSH QSHIFT [facility] Last Admin: 10/17/23 08:19 Dose: 3 ml Documented By: BENNETT Tbo-Filgrastim (Tbo-Filgrastim 300 Mcg/0.5 Ml Syringe) 300 mcg SUBCUT DAILY [facility] Last Admin: 10/16/23 11:14 Dose: 300 mcg Documented By: KAYCE Labs 10/17/23 05:39 10/17/23 05:39 Labs: Laboratory Results - last 24 hr 10/16/23 10/17/23 10/17/23 07:01 05:39 08:17 MCV 89.8 MCH 30.6 MCHC 34.1 RDW 15.1 Plt Count 6 L* MPV 12.5 H Absolute Nucleated RBC 0.020 H Nucleated RBC % (auto) 3.6 H Anion Gap 14 Estim Creat Clear Calc 57.9 Estimated GFR > 60 Random Glucose 177 H Calcium 7.9 L Magnesium 1.5 L Blood Type O Positive Antibody Screen NEGATIVE Microbiology Microbiology Results: Microbiology 10/12/23 08:42 Blood Culture - Final Blood - Venous No growth after 5 days. 10/12/23 08:42 Blood Culture - Final Blood - Venous No growth after 5 days. Assessment and Plan (1) Gram-negative bacteremia: Status: Acute Plan 73/F with acute myeloid leukemia on oral paliative chemotherapy, complicated by pancytopenia, COPD, and HLD, She was admitted through the ICU with septic shock ,pancytopenia, Neutropenic and has gram negative angelina bacteremi and PNA. Presently on Vancomycin, Cefepime and Doxyc. Septic shock due to psuedomonas bacteremia-required vasopressors in icu repeat blood cx negative continue cefepime 10/11 to 10/16. change to meropenem as cefepime may be contributing to thrombocytopenia HypOtenison initially d/t septic shock hypotension on 10/11 d/t anemia resolved Transient AFIB on 10/11-related to anemia, was given dig and metoprolol and converted to sinus -continue metoprolol -no anticoagulation d/t anemia and low platlet, -cardiology following Neutropenia--no fever, WBC 0.6, ANC 0 -Granix daily until WBC 1K per onc -oncology following and think prognosis is poor Pancytopenia--d/t AML,, chemo -transfusion for Hgb < 7 or Plat < 10 -s/p 2 units of RBCs on 10/11 -s/p 6 units of plat since hospitaliation -2 units of plat today for of 6 Acute hypoxic respiratory failure d/t PNA, + parainfluezae--improved -O2 to keep sat 88 to 94, continue Abx as above HypOkalemia--replace with iv and po, check mag and correct as needed COPD--no excacerbation continue inhalers, and O2 presently sating 96% on 1L Hypothyroidism on levothyroxine -tsh 0.7, levothyxoxine still not verified by pharm, last filled at pharmacy in July for 125 mcg Mood disorder/anxiety -ativan PRN moderate to severe Protein calorie malnutrition -ensure supplement DNI Poor prognosis compression device for DVT d/t anemia and low plat need to hospitalization -- panyctopenia, treatment for pseudomonas bacteremia Quality Stroke Does the patient have a stroke diagnosis?: No VTE Prior VTE?: No VTE Risk Level:: Medical - moderate - high VTE Device Contraindication: N/A - Device Ordered VTE Drug Contraindication: Treatment Not Indicated
[2023-10-17 11:48] LABS: Magnesium 1.6 mg/dL (1.6-2.6)
--- NOTE | 2023-10-17 13:07 | PM.HEMONCPN ---
Medical Summary - Medical Summary Date of Service: 10/17/23 Chief complaint: AML Primary Care Provider: Burt Juarez MD Interval History Interval history: Merline Srinivasan is a 73 year old female from [place] with acute myeloid leukemia treated with induction chemotherapy at [facility] who relapsed. She is treated at [facility] lately with palliative hydroxyurea. She is admitted with pancytopenia and septic shock to the ICU and has been stabilized. She remains hemodynamically stable. She denies new pain but remains weak. Review of Systems - Constitutional Reports anorexia - Eyes Reports sensitivity to light - ENT Reports system reviewed and no additional complaints, except as documented - Cardiovascular Reports fainting - Respiratory Reports dyspnea on exertion - Gastrointestinal Reports constipation - Genitourinary Reports frequent nighttime urination - Neurologic Reports confusion, Reports syncope, Reports weakness PMFSH Medical History: Medical History (Last Reviewed 10/11/23 @ 23:42 by Mary Alice Alfaro MD) Acute myeloid leukemia Anemia Anemia Anxiety COPD (chronic obstructive pulmonary disease) COPD with asthma Depression Dyspnea Gram-positive bacteremia Hypothyroidism Non-Hodgkin lymphoma in remission Thrombocytopenia Tobacco dependence Family History: Family History (Last Reviewed 10/11/23 @ 23:42 by Mary Alice Alfaro MD) Father CAD (coronary artery disease) Family history: reviewed and not pertinent Surgical History: Surgical History (Last Reviewed 10/11/23 @ 23:42 by Mary Alice Alfaro MD) H/O: hysterectomy History of salpingo-oophorectomy S/P angiogram of extremity Onset Date: 02/13/20 Social History: Social History (Last Reviewed 10/11/23 @ 23:42 by Mary Alice Alfaro MD) Living Situation History: Household Members: None Housing: Apartment Do you presently have visiting nurse or other home services: No Alcohol History: Unable to assess alcohol history related to: Unable to respond Alcohol History Details: 1. How often do you have a drink containing alcohol?: a. Never 3. How often do you have six or more drinks on one occasion?: a. Never AUDIT-C Alcohol total score: 0 Currently Displaying Signs/Symptoms of Alcohol Withdrawal: No Tobacco History: Patient Tobacco Use Status: Current everyday Tobacco Tobacco use type: Cigarette Cigarette Packs Per Day: 1 Years Smoked: 40 Smoked in Last 30 Days: Yes e-Cigarette/Vaping Use: Never Used Patient Interested in Nicotine Replacement: No Patient Given Instructions on How to Stop Smoking: No Second Hand Smoke Exposure: No Second Hand Smoke Exposure comment: not interested Substance Use History: Use of substances other than those prescribed or required for medical reasons: No Currently Displaying Signs/Symptoms of Drug Intoxication Withdrawal: No Any prior treatment program specific to substance use: No Domestic Abuse History: Do you feel safe in your current relationship?: No Current Relationship Is there a partner from a previous relationship who is making you feel unsafe now?: No Are you made to feel afraid or neglected: No Advance Directives: Advance Directives: Yes Advance Directives on File: Yes Advance Directives Date on File: 07/16/21 Homicidal Assessment: Do you have a plan to hurt others: No Plan Nutrition Assessment: Recently lost weight without trying: No Eating poorly because of decreased appetite: No Nutrition Risks: No Nutritional Risk Patient : No : No Poor oral hygiene: No Occupation Assessmet: service: No Current occupational status: retired Home Medications and Allergies Current Medications: Current Medications Acyclovir (Acyclovir 200 Mg Capsule) 400 mg PO BID [facility] Last Admin: 10/17/23 08:19 Dose: 400 mg Allopurinol (Allopurinol 300 Mg Tablet) 300 mg PO DAILY [facility] Last Admin: 10/17/23 08:18 Dose: 300 mg Cyanocobalamin (Cyanocobalamin (Vitamin B-12) 1,000 Mcg Tablet) 1,000 mcg PO DAILY [facility] Last Admin: 10/17/23 08:19 Dose: 1,000 mcg Meropenem 1 gm/ Sodium (Chloride) 100 mls @ 200 mls/hr IV Q8H [facility] Potassium Chloride (Potassium Chloride/H20) 10 meq in 100 mls @ 100 mls/hr IV Q1H [facility] Stop: 10/17/23 15:29 Levothyroxine Sodium (Levothyroxine Sodium 100 Mcg/5 Ml Vial) 50 mcg IVPUSH DAILY@0600 [facility] Last Admin: 10/17/23 05:16 Dose: 50 mcg Lorazepam (Lorazepam 0.5 Mg Tablet) 0.5 mg PO DAILY PRN PRN Reason: anxiety Last Admin: 10/12/23 02:34 Dose: 0.5 mg Metoprolol Tartrate (Metoprolol Tartrate 25 Mg Tablet) 25 mg PO BID [facility]; Protocol Last Admin: 08/26/24 08:17 Dose: Not Given Potassium Chloride (Potassium Chloride Er 20 Meq Tab.Er.Prt) 20 meq PO DAILY [facility] Last Admin: 10/17/23 08:19 Dose: 20 meq Sodium Chloride (0.9 % Sodium Chloride Flush 3 Ml Syringe) 3 ml IVFLUSH QSHIFT [facility] Last Admin: 10/17/23 08:19 Dose: 3 ml Tbo-Filgrastim (Tbo-Filgrastim 300 Mcg/0.5 Ml Syringe) 300 mcg SUBCUT DAILY [facility] Last Admin: 10/16/23 11:14 Dose: 300 mcg Home Medications ?Medication ?Instructions ?Recorded ?Confirmed ?Type acyclovir 400 mg tablet 400 mg PO BID 01/31/20 10/10/23 History levothyroxine 125 mcg tablet 125 mcg PO DAILY@0600 01/31/20 08/12/23 History trazodone 100 mg tablet 100 mg PO BEDTIME 01/31/20 08/12/23 History lorazepam 0.5 mg tablet 0.5 mg PO DAILY PRN anxiety 03/01/22 10/10/23 History cyanocobalamin (vitamin B-12) 1,000 mcg PO DAILY 02/02/23 10/10/23 History 1,000 mcg tablet potassium chloride 20 mEq 20 meq PO DAILY 02/02/23 10/10/23 History tablet,extended release fexofenadine 180 mg tablet 180 mg PO DAILY 07/10/23 08/12/23 History (Nahed Allergy) allopurinol 300 mg tablet 300 mg PO DAILY 10/10/23 10/10/23 History decitabine 35 mg-cedazuridine 100 1 tab PO DAILY 10/10/23 10/10/23 History mg tablet (Inqovi) nystatin 100,000 unit/mL oral 5 ml PO QID 10/10/23 10/10/23 History suspension venetoclax 100 mg tablet See Rx Instructions .Route .COMPLEX 10/10/23 History (Venclexta) Allergies Allergy/AdvReac Type Severity Reaction Status Date / Time adhesive tape Allergy Unknown RASH Verified 10/09/23 15:33 bacitracin [Bacitracin] Allergy Unknown RASH Verified 10/09/23 15:33 Exam Vital signs: Vital Signs Temp 98.2 F 10/17/23 12:23 Pulse 100 10/17/23 12:23 Resp 14 10/17/23 12:23 BP 112/48 L 10/17/23 12:23 Pulse Ox 93 10/17/23 12:00 O2 Del Method Nasal Cannula 10/17/23 12:00 O2 Flow Rate 2 10/17/23 12:00 Intake & Output 10/16/23 10/17/23 10/17/23 18:59 06:59 18:59 Intake Total 543.333 / 593.333 50 / 593.333 499 / 499 Balance 543.333 / 593.333 50 / 593.333 499 / 499 Intake: Intake, Oral Amount 240 / 240 Intake (Blood Product) Amount 259 / 259 Plt Aph Pas Pathreduced(E8341) 259 / 259 Unit [id number] Plt Aph Pas Pathreduced(E8341) 0 / 0 Unit [id number] Intake, IV Amount 543.333 / 593.333 50 / 593.333 Magnesium Sulfate/H2O 2 gm In 50 / 50 50 ml @ 25 mls/hr IV ONCE ONE Rx#:[id number] Potassium Chloride/H20 10 meq 393.333 / 393.333 In 100 ml @ 100 mls/hr IV Q1H [facility] Rx#:[id number] cefEPime HCl 2 gm In 0.9 % 100 / 150 50 / 150 Sodium Chloride 50 ml @ 100 mls /hr IV Q12H [facility] Rx#:[id number] Other: Meal Refused Yes NPO No Breakfast % Eaten 0% 25% Lunch % Eaten 0% Eating (Feeding) Ability Cueing Needed Number of Incontinent Voids 5 2 2 Number of Unmeasured Voids 5 2 Number of Bowel Movements 1 Urine in bed Urine Color Pale Yellow Yellow Stool Incontinent Stool Amount Large Stool Color Brown Stool Consistency Loose Weight 48.5 kg 45.6 kg Weight in Grams [id number] Weight 45.6 kg BMI result Body Mass Index 20.3 - Constitutional Present: no acute distress, cachectic - Routine HEENT Exam Head: Present: atraumatic, normal inspection ENT: Present: mucous membranes moist - Routine Neck Exam Present: full ROM - Routine Respiratory Exam Present: decreased breath sounds, rhonchi, wheezes - Routine Cardiovascular Exam Cardiovascular: Present: RRR, tachycardia - Routine Abdominal Exam Present: diminished bowel sounds, nontender - Routine Extremities Exam Present: nontender (mediport right chest wall) Data - Labs CBC & Chem 7: 08/26/24 05:39 10/17/23 05:39 - Imaging Radiologist's impression: ITS Impressions Chest X-Ray 10/09/23 16:40 IMPRESSION: 1. No radiographic evidence of acute infiltrates or failure. 2. Port-A-Cath remain in place properly positioned. Abdomen/Pelvis CT 10/09/23 20:21 IMPRESSION: CT scan of the chest: * Interval development of multifocal irregular masslike opacifications in the lungs bilaterally, most prominently involving the left lung apex. Findings are suspicious for multifocal infectious or inflammatory nodules. In the appropriate clinical setting, entities such as septic emboli can also be considered in the differential. * Mild interstitial pulmonary edema is seen. * Calcified mediastinal and hilar lymph nodes, consistent with granulomatous lung disease. CT scan of the abdomen and pelvis: * Mild fluid distention of the small bowel loops with scattered air-fluid levels. This is a nonspecific finding and may be related to a diffuse gastroenteritis. No evidence of obstruction or perforation. * Prominent rectal distention with fecal material moderate volume liquid stool in the left colon noted. * Prominent atherosclerotic vascular disease. Chest CT 10/09/23 20:21 IMPRESSION: CT scan of the chest: * Interval development of multifocal irregular masslike opacifications in the lungs bilaterally, most prominently involving the left lung apex. Findings are suspicious for multifocal infectious or inflammatory nodules. In the appropriate clinical setting, entities such as septic emboli can also be considered in the differential. * Mild interstitial pulmonary edema is seen. * Calcified mediastinal and hilar lymph nodes, consistent with granulomatous lung disease. CT scan of the abdomen and pelvis: * Mild fluid distention of the small bowel loops with scattered air-fluid levels. This is a nonspecific finding and may be related to a diffuse gastroenteritis. No evidence of obstruction or perforation. * Prominent rectal distention with fecal material moderate volume liquid stool in the left colon noted. * Prominent atherosclerotic vascular disease. Assessment and Plan Patient Active problem list reviewed?: Yes (1) Acute myeloid leukemia Status: Acute Assessment and plan: She will need an ID consult, growth factor and blood product support, broad spectrum antibiotics and neutropenic precautions. I will follow daily. The potassium is only 2.9 and will need repletion. Her wbc is rising. (2) Pancytopenia Status: Acute Assessment and plan: I agree with current therapy. Will bgin to assess her wishes about continued hospital level of care. - Time Spent With Patient Time Spent with Patient (in minutes): 15
--- NOTE | 2023-10-17 15:29 | MHC.CM.PN ---
EMR REVIEWED, PT NOW W/ELECTROLYTE IMBALANCE, NO PLAN FOR DC AT THIS TIME, CM WILL CONT TO FOLLOW DC NEEDS.
[2023-10-17] MEDS: Potassium Chloride/H20 10 MEQ/100 ML PIGGYBACK 100 MEQ IV ×4 (16:07→20:43)
[2023-10-17] MEDS: Metoprolol Tartrate 25 MG TABLET PO (20:43)
[2023-10-17] MEDS: traMADoL HCL 50 MG TABLET 25 MG PO (21:40)
[2023-10-17 22:28] LABS: Anion Gap 10 (12-20); Carbon Dioxide 26 mmol/L (22-29); Chloride 104 mmol/L (96-108); Potassium 3.2 mmol/L (3.3-5.1); Sodium 137 mmol/L (135-145)
[2023-10-17] MEDS: Potassium Chloride Packet 20 MEQ PACKET 40 MEQ PO (23:04)
[2023-10-18] VITALS (10 sets, daily range): BP systolic 100–149; BP diastolic 55–74; PULSE 86–110; RESP 16–20; TEMP 36.3–38.1; O2SAT 94–100
[2023-10-18] MEDS: Levothyroxine Sodium 100 MCG/5 ML VIAL 50 MCG IVPUSH (05:44)
[2023-10-18] MEDS: Cyanocobalamin (Vitamin B-12) 1,000 MCG TABLET 1000 MCG PO (09:13)
[2023-10-18] MEDS: Acyclovir 200 MG CAPSULE 400 MG PO ×2 (09:13→20:17)
[2023-10-18] MEDS: Metoprolol Tartrate 25 MG TABLET PO ×2 (09:13→20:17)
[2023-10-18] MEDS: Tbo-Filgrastim 300 MCG/0.5 ML SYRINGE SUBCUT (09:14)
[2023-10-18] MEDS: allopurinoL 300 MG TABLET PO (09:14)
[2023-10-18] MEDS: 0.9 % Sodium Chloride Flush 3 ML SYRINGE IVFLUSH ×3 (09:14→20:17)
[2023-10-18] MEDS: Potassium Chloride ER 20 MEQ TAB.ER.PRT PO (09:14)
[2023-10-18 09:32] LABS: Hematocrit 23.4 % (37.0-47.0); Hemoglobin 8.1 g/dl (12.0-16.0); Mean Corpuscular HGB Conc 34.6 g/dl (31.0-35.0); Mean Corpuscular Hemoglobin 31.3 pg (27.0-33.0); Mean Corpuscular Volume 90.3 fL (80.0-98.0); Mean Platelet Volume 9.2 fL (9.4-12.3); Red Blood Count 2.59 X10*6/uL (4.20-5.50); Red Cell Distribution Width 15.5 % (11.0-16.0)
[2023-10-18 09:47] LABS: White Blood Count 0.5 X10*3/uL (4.8-10.8)
[2023-10-18 09:48] LABS: Platelet Count 16 X10*3/uL (160-400)
[2023-10-18 10:01] LABS: Anion Gap 9 (12-20); Blood Urea Nitrogen 18 mg/dL (9-16); Carbon Dioxide 27 mmol/L (22-29); Chloride 105 mmol/L (96-108); Estimated Glomerular Filt Rate > 60; Glucose Random 176 mg/dL (60-115); Magnesium 1.5 mg/dL (1.6-2.6); Potassium 3.1 mmol/L (3.3-5.1); Sodium 138 mmol/L (135-145)
--- NOTE | 2023-10-18 11:14 | P.PNIM_ITS ---
Subjective Subjective Date of Service: 10/18/23 Interval History: No new complaint, plat still low, wbc only 0.5 apetite not good Review of Systems Negative except HPI/interval history. Physical Exam 2 Vital Signs: Vital Signs: Last Vital Signs Temp 97.3 F 10/18/23 07:03 Pulse 95 10/18/23 07:03 Resp 18 10/18/23 07:03 BP 117/55 L 10/18/23 07:03 Pulse Ox 94 10/18/23 07:03 O2 Del Method Nasal Cannula 10/18/23 07:03 O2 Flow Rate 2 10/18/23 07:03 BMI result Body Mass Index 20.3 General: oriented to self, frail, place and date, frail still Resp: CTA bilateral, normal effore CVS: S1,S2,RRR GI: +BS, NT, no distention Skin: No rash Neuro: motor grossly intact Psych: flat Objective Data Active Medications Acyclovir (Acyclovir 200 Mg Capsule) 400 mg PO BID [facility] Last Admin: 10/18/23 09:13 Dose: 400 mg Documented By: SUSHILA Allopurinol (Allopurinol 300 Mg Tablet) 300 mg PO DAILY [facility] Last Admin: 10/18/23 09:14 Dose: 300 mg Documented By: SUSHILA Cyanocobalamin (Cyanocobalamin (Vitamin B-12) 1,000 Mcg Tablet) 1,000 mcg PO DAILY [facility] Last Admin: 10/18/23 09:13 Dose: 1,000 mcg Documented By: SUSHILA Meropenem 1 gm/ Sodium (Chloride) 100 mls @ 200 mls/hr IV Q8H [facility] Last Infusion: 10/18/23 06:22 Dose: Infused Documented By: HARINI Sodium Chloride (Ns) 100 mls @ 100 mls/hr IV ONCE ONE Stop: 10/18/23 12:08 Levothyroxine Sodium (Levothyroxine Sodium 100 Mcg/5 Ml Vial) 50 mcg IVPUSH DAILY@0600 [facility] Last Admin: 10/18/23 05:44 Dose: 50 mcg Documented By: HARINI Lorazepam (Lorazepam 0.5 Mg Tablet) 0.5 mg PO DAILY PRN PRN Reason: anxiety Last Admin: 10/12/23 02:34 Dose: 0.5 mg Documented By: MICHELL Metoprolol Tartrate (Metoprolol Tartrate 25 Mg Tablet) 25 mg PO BID [facility]; Protocol Last Admin: 10/18/23 09:13 Dose: 25 mg Documented By: SUSHILA Potassium Chloride (Potassium Chloride Er 20 Meq Tab.Er.Prt) 20 meq PO DAILY [facility] Last Admin: 10/18/23 09:14 Dose: 20 meq Documented By: SUSHILA Potassium Chloride (Potassium Chloride Packet 20 Meq Packet) 40 meq PO BID [facility] Stop: 10/18/23 21:01 Sodium Chloride (0.9 % Sodium Chloride Flush 3 Ml Syringe) 3 ml IVFLUSH QSHIFT [facility] Last Admin: 10/18/23 09:14 Dose: 3 ml Documented By: SUSHILA Tbo-Filgrastim (Tbo-Filgrastim 300 Mcg/0.5 Ml Syringe) 300 mcg SUBCUT DAILY [facility] Last Admin: 10/18/23 09:14 Dose: 300 mcg Documented By: SUSHILA Labs 10/18/23 09:17 10/18/23 09:17 Labs: Laboratory Results - last 24 hr 10/17/23 10/17/23 10/17/23 05:39 08:17 22:06 MCV MCH MCHC RDW Plt Count MPV Absolute Nucleated RBC Nucleated RBC % (auto) Anion Gap 10 L Estim Creat Clear Calc Estimated GFR Random Glucose Calcium Magnesium 1.6 Blood Type O Positive Antibody Screen NEGATIVE 10/18/23 09:17 MCV 90.3 MCH 31.3 MCHC 34.6 RDW 15.5 Plt Count 16 L* D MPV 9.2 L Absolute Nucleated RBC 0.000 Nucleated RBC % (auto) 0.0 Anion Gap 9 L Estim Creat Clear Calc 56.0 Estimated GFR > 60 Random Glucose 176 H Calcium 8.0 L Magnesium 1.5 L Blood Type Antibody Screen Microbiology Microbiology Results: Microbiology 10/12/23 08:42 Blood Culture - Final Blood - Venous No growth after 5 days. 10/12/23 08:42 Blood Culture - Final Blood - Venous No growth after 5 days. Assessment and Plan (1) Gram-negative bacteremia: Status: Acute Plan 73/F with acute myeloid leukemia on oral paliative chemotherapy, complicated by pancytopenia, COPD, and HLD, She was admitted through the ICU with septic shock ,pancytopenia, Neutropenic and has gram negative angelina bacteremi and PNA. Presently on Vancomycin, Cefepime and Doxyc. Septic shock due to psuedomonas bacteremia-required vasopressors in icu repeat blood cx negative was on cefepime 10/11 to 10/16. change to meropenem 10/16 as cefepime may be contributing to thrombocytopenia get midline HypOtenison initially d/t septic shock hypotension on 10/11 d/t anemia resolved Transient AFIB on 10/11-related to anemia, was given dig and metoprolol and converted to sinus -continue metoprolol -no anticoagulation d/t anemia and low platlet, -cardiology following Neutropenia--no fever, WBC 0.6, ANC 0 -Granix daily until WBC 1K per onc -oncology following and think prognosis is poor Pancytopenia--d/t AML,, chemo -transfusion for Hgb < 7 or Plat < 10 -s/p 2 units of RBCs on 10/11 -s/p 8 units of plat since hospitaliation - Acute hypoxic respiratory failure d/t PNA, + parainfluezae--improved -O2 to keep sat 88 to 94, continue Abx as above HypOkalemia--replace with iv and po, check mag and correct as needed COPD--no excacerbation continue inhalers, and O2 presently sating 96% on 1L Hypothyroidism on levothyroxine -tsh 0.7, levothyxoxine still not verified by pharm, last filled at pharmacy in July for 125 mcg Mood disorder/anxiety -ativan PRN moderate to severe Protein calorie malnutrition -ensure supplement DNI Poor prognosis compression device for DVT d/t anemia and low plat need to hospitalization -- panyctopenia, treatment for pseudomonas bacteremia PT eval Quality Stroke Does the patient have a stroke diagnosis?: No VTE Prior VTE?: No VTE Risk Level:: Medical - moderate - high VTE Device Contraindication: N/A - Device Ordered VTE Drug Contraindication: Treatment Not Indicated
[2023-10-18] MEDS: Potassium Chloride Packet 20 MEQ PACKET 40 MEQ PO ×2 (12:19→20:17)
[2023-10-18] MEDS: oxyCODONE HCl Immed Release 5 MG TABLET PO (12:19)
--- NOTE | 2023-10-18 21:35 | HO.WOUND ---
Wound Consult: Initial 73yr old female admitted [place] [facility] [place]23 - see H&P for detailed history. Wound consult placed for various sites with pigmentation changes. Chart review reveals patient has thrombocytopenia ranging form 8 -16 - see lab data for details. The etiology of the sites remain unknown - they are likely related to her systemic illness and her thrombocytopenia. The sites vary in appearance - some are intact and blanchable pink, some are hot red, some are dark maroon central color with a halo around the pigmentation changes. The left knee site does appear to be of greatest concern - it is not pressure nor moisture related, the open site to the left knee can be treated with a foam dressing to aid in protection and moist wound healing. Will defer etiology to provider. Left Knee - Cleanse with NS moist gauze, pat dry. Apply skin prep ,cover with foam dressing - change every 3 days. Left Thigh Right Back Right Thigh
[2023-10-19] VITALS (10 sets, daily range): BP systolic 104–152; BP diastolic 49–80; PULSE 87–113; RESP 17–20; TEMP 36.6–37.6; O2SAT 93–98
[2023-10-19] MEDS: oxyCODONE HCl Immed Release 5 MG TABLET PO ×2 (03:53→23:37)
[2023-10-19] MEDS: Levothyroxine Sodium 100 MCG/5 ML VIAL 50 MCG IVPUSH (06:43)
[2023-10-19] MEDS: Metoprolol Tartrate 25 MG TABLET PO ×2 (08:12→20:08)
[2023-10-19] MEDS: Acyclovir 200 MG CAPSULE 400 MG PO ×2 (08:12→20:08)
[2023-10-19] MEDS: Potassium Chloride ER 20 MEQ TAB.ER.PRT PO (08:13)
[2023-10-19] MEDS: Cyanocobalamin (Vitamin B-12) 1,000 MCG TABLET 1000 MCG PO (08:13)
[2023-10-19] MEDS: allopurinoL 300 MG TABLET PO (08:13)
[2023-10-19] MEDS: 0.9 % Sodium Chloride Flush 3 ML SYRINGE IVFLUSH ×3 (08:14→20:09)
[2023-10-19 08:36] LABS: Hemoglobin 7.1 g/dl (12.0-16.0); Mean Corpuscular HGB Conc 33.8 g/dl (31.0-35.0); Mean Corpuscular Hemoglobin 31.1 pg (27.0-33.0); Mean Corpuscular Volume 92.1 fL (80.0-98.0); Mean Platelet Volume 10.9 fL (9.4-12.3); Red Blood Count 2.28 X10*6/uL (4.20-5.50); Red Cell Distribution Width 15.7 % (11.0-16.0)
[2023-10-19 08:39] LABS: Anion Gap 10 (12-20); Blood Urea Nitrogen 21 mg/dL (9-16); Calcium 8.1 mg/dL (8.4-10.2); Carbon Dioxide 26 mmol/L (22-29); Chloride 105 mmol/L (96-108); Creatinine Clr Calc Pharmacy 49.5; Estimated Glomerular Filt Rate > 60; Glucose Random 344 mg/dL (60-115); Potassium 3.7 mmol/L (3.3-5.1); Sodium 137 mmol/L (135-145); White Blood Count 0.6 X10*3/uL (4.8-10.8)
[2023-10-19 08:42] LABS: Platelet Count 23 X10*3/uL (160-400)
[2023-10-19] MEDS: Tbo-Filgrastim 300 MCG/0.5 ML SYRINGE SUBCUT (10:24)
--- NOTE | 2023-10-19 10:43 | P.PNIM_ITS ---
Subjective Subjective Date of Service: 10/19/23 Interval History: No new complaint, plat still low, wbc only 0.6 hematocrit is down to 21, no active blee poor apetite Physical Exam 2 Vital Signs: Vital Signs: Last Vital Signs Temp 98.6 F 10/19/23 07:01 Pulse 98 10/19/23 07:01 Resp 17 10/19/23 07:01 BP 105/65 10/19/23 07:01 Pulse Ox 93 10/19/23 07:01 O2 Del Method Nasal Cannula 10/19/23 07:01 O2 Flow Rate 2 10/19/23 07:01 BMI result Body Mass Index 20.3 Const: Other: General: oriented to self, frail, emaciated, no distress Resp: CTA bilateral, normal effore CVS: S1,S2,RRR GI: +BS, NT, no distention Skin: No rash Neuro: motor grossly intact Psych: flat Objective Data Active Medications Acyclovir (Acyclovir 200 Mg Capsule) 400 mg PO BID [facility] Last Admin: 10/19/23 08:12 Dose: 400 mg Documented By: JAYDE Allopurinol (Allopurinol 300 Mg Tablet) 300 mg PO DAILY [facility] Last Admin: 10/19/23 08:13 Dose: 300 mg Documented By: JAYDE Cyanocobalamin (Cyanocobalamin (Vitamin B-12) 1,000 Mcg Tablet) 1,000 mcg PO DAILY [facility] Last Admin: 10/19/23 08:13 Dose: 1,000 mcg Documented By: JAYDE Meropenem 1 gm/ Sodium (Chloride) 100 mls @ 200 mls/hr IV Q8H [facility] Last Infusion: 10/19/23 09:00 Dose: Infused Documented By: JAYDE Sodium Chloride (Ns) 100 mls @ 100 mls/hr IV ONCE ONE Stop: 10/19/23 11:07 Levothyroxine Sodium (Levothyroxine Sodium 100 Mcg/5 Ml Vial) 50 mcg IVPUSH DAILY@0600 [facility] Last Admin: 10/19/23 06:43 Dose: 50 mcg Documented By: TRESSA Lorazepam (Lorazepam 0.5 Mg Tablet) 0.5 mg PO DAILY PRN PRN Reason: anxiety Last Admin: 10/12/23 02:34 Dose: 0.5 mg Documented By: MICHELL Metoprolol Tartrate (Metoprolol Tartrate 25 Mg Tablet) 25 mg PO BID [facility]; Protocol Last Admin: 10/19/23 08:12 Dose: 25 mg Documented By: JAYDE Oxycodone HCl (Oxycodone Hcl Immed Release 5 Mg Tablet) 5 mg PO Q6H PRN PRN Reason: Pain, Severe (Pain Scale 7-10) Last Admin: 10/19/23 03:53 Dose: 5 mg Documented By: TRESSA Potassium Chloride (Potassium Chloride Er 20 Meq Tab.Er.Prt) 20 meq PO DAILY [facility] Last Admin: 10/19/23 08:13 Dose: 20 meq Documented By: JAYDE Sodium Chloride (0.9 % Sodium Chloride Flush 3 Ml Syringe) 3 ml IVFLUSH QSHIFT [facility] Last Admin: 10/19/23 08:14 Dose: 3 ml Documented By: JAYDE Tbo-Filgrastim (Tbo-Filgrastim 300 Mcg/0.5 Ml Syringe) 300 mcg SUBCUT DAILY [facility] Last Admin: 10/19/23 10:24 Dose: 300 mcg Documented By: JAYDE Labs 10/19/23 08:00 10/19/23 08:00 Labs: Laboratory Results - last 24 hr 10/17/23 10/19/23 08:17 08:00 MCV 92.1 MCH 31.1 MCHC 33.8 RDW 15.7 Plt Count 23 L D MPV 10.9 Absolute Nucleated RBC 0.000 Nucleated RBC % (auto) 0.0 Anion Gap 10 L Estim Creat Clear Calc 49.5 Estimated GFR > 60 Random Glucose 344 H Calcium 8.1 L Blood Type O Positive Antibody Screen NEGATIVE Crossmatch See Detail Assessment and Plan (1) Gram-negative bacteremia: Status: Acute Plan 73/F with acute myeloid leukemia on oral paliative chemotherapy, complicated by pancytopenia, COPD, and HLD, She was admitted through the ICU with septic shock ,pancytopenia, Neutropenic and has gram negative angelina bacteremi and PNA. Presently on Vancomycin, Cefepime and Doxyc. Septic shock due to psuedomonas bacteremia-required vasopressors in icu repeat blood cx negative was on cefepime 10/11 to 10/16. change to meropenem 10/16 as cefepime may be contributing to thrombocytopenia get midline HypOtenison initially d/t septic shock hypotension on 10/11 d/t anemia resolved Transient AFIB on 10/11-related to anemia, was given dig and metoprolol and converted to sinus -continue metoprolol -no anticoagulation d/t anemia and low platlet, -cardiology following Neutropenia--no fever, WBC 0.6, ANC 0 -Granix daily until WBC 1K per onc -oncology following and think prognosis is poor Pancytopenia--d/t AML,, chemo -transfusion for Hgb < 7 or Plat < 10 -s/p 2 units of RBCs on 10/11, 1 unit on 10/18 -s/p 9 units of plat since hospitaliation - Acute hypoxic respiratory failure d/t PNA, + parainfluezae--improved -O2 to keep sat 88 to 94, continue Abx as above HypOkalemia--replace with iv and po, check mag and correct as needed COPD--no excacerbation continue inhalers, and O2 presently sating 96% on 1L Hypothyroidism on levothyroxine -tsh 0.7, levothyxoxine still not verified by pharm, last filled at pharmacy in July for 125 mcg Mood disorder/anxiety -ativan PRN moderate to severe Protein calorie malnutrition -ensure supplement DNI Poor prognosis compression device for DVT d/t anemia and low plat need to hospitalization -- panyctopenia, treatment for pseudomonas bacteremia PT recommends home with 24 hrs care vs rehab Quality Stroke Does the patient have a stroke diagnosis?: No VTE Prior VTE?: No VTE Risk Level:: Medical - moderate - high VTE Device Contraindication: N/A - Device Ordered VTE Drug Contraindication: Treatment Not Indicated
--- NOTE | 2023-10-19 13:15 | MHC.CM.PN ---
EMR REVIEWED, PT W/AFIB W/RVR/LUEKEMIA, PER HOSPITALIST PLAN FOR TRANSFUSION TODAY, NOT YET READY FOR DC, PT MAY NEED STR ON DC, CM WILL CONT TO FOLLOW DC NEEDS.
[2023-10-20] VITALS (12 sets, daily range): BP systolic 116–163; BP diastolic 57–79; PULSE 88–107; RESP 17–20; TEMP 36.3–37.3; O2SAT 94–98
[2023-10-20] MEDS: Levothyroxine Sodium 100 MCG/5 ML VIAL 50 MCG IVPUSH (06:35)
[2023-10-20 08:40] LABS: Hematocrit 26.5 % (37.0-47.0); PLT CLUMP 1
[2023-10-20 08:42] LABS: Mean Corpuscular Hemoglobin 30.6 pg (27.0-33.0); Mean Corpuscular Volume 90.1 fL (80.0-98.0); Red Blood Count 2.94 X10*6/uL (4.20-5.50); Red Cell Distribution Width 15.7 % (11.0-16.0)
[2023-10-20 08:53] LABS: Anion Gap 12 (12-20); Blood Urea Nitrogen 20 mg/dL (9-16); Calcium 8.3 mg/dL (8.4-10.2); Carbon Dioxide 27 mmol/L (22-29); Chloride 101 mmol/L (96-108); Creatinine Clr Calc Pharmacy 54.2; Estimated Glomerular Filt Rate > 60; Glucose Random 228 mg/dL (60-115); Potassium 3.2 mmol/L (3.3-5.1); Sodium 137 mmol/L (135-145)
[2023-10-20 08:59] LABS: White Blood Count 0.5 X10*3/uL (4.8-10.8)
[2023-10-20 09:00] LABS: Platelet Count 7 X10*3/uL (160-400)
[2023-10-20] MEDS: Cyanocobalamin (Vitamin B-12) 1,000 MCG TABLET 1000 MCG PO (09:06)
[2023-10-20] MEDS: Metoprolol Tartrate 25 MG TABLET PO ×2 (09:06→20:14)
[2023-10-20] MEDS: Potassium Chloride ER 20 MEQ TAB.ER.PRT PO (09:06)
[2023-10-20] MEDS: 0.9 % Sodium Chloride Flush 3 ML SYRINGE IVFLUSH ×3 (09:07→20:14)
[2023-10-20] MEDS: allopurinoL 300 MG TABLET PO (09:07)
[2023-10-20] MEDS: Acyclovir 200 MG CAPSULE 400 MG PO ×2 (09:07→20:14)
--- NOTE | 2023-10-20 09:27 | P.PNIM_ITS ---
Subjective Subjective Date of Service: 10/20/23 Interval History: feels better, no new issues, Plt leslie to 7, H/H better apetite is poor Physical Exam 2 Vital Signs: Vital Signs: Last Vital Signs Temp 99.0 F 10/20/23 07:30 Pulse 91 10/20/23 07:30 Resp 20 10/20/23 07:30 BP 127/62 10/20/23 07:30 Pulse Ox 98 10/20/23 07:30 O2 Del Method Nasal Cannula 10/20/23 07:30 O2 Flow Rate 2 10/20/23 07:30 BMI result Body Mass Index 20.3 Const: Other: General: oriented to self, frail, emaciated, no distress Resp: CTA bilateral, normal effore CVS: S1,S2,RRR GI: +BS, NT, no distention Skin: No rash Neuro: motor grossly intact Psych: flat Objective Data Active Medications Acyclovir (Acyclovir 200 Mg Capsule) 400 mg PO BID [facility] Last Admin: 10/20/23 09:07 Dose: 400 mg Documented By: JAYDE Allopurinol (Allopurinol 300 Mg Tablet) 300 mg PO DAILY [facility] Last Admin: 10/20/23 09:07 Dose: 300 mg Documented By: JAYDE Cyanocobalamin (Cyanocobalamin (Vitamin B-12) 1,000 Mcg Tablet) 1,000 mcg PO DAILY [facility] Last Admin: 10/20/23 09:06 Dose: 1,000 mcg Documented By: JAYDE Meropenem 1 gm/ Sodium (Chloride) 100 mls @ 200 mls/hr IV Q8H [facility] Last Infusion: 10/20/23 07:32 Dose: Infused Documented By: JAYDE Levothyroxine Sodium (Levothyroxine Sodium 100 Mcg/5 Ml Vial) 50 mcg IVPUSH DAILY@0600 [facility] Last Admin: 10/20/23 06:35 Dose: 50 mcg Documented By: TRESSA Lorazepam (Lorazepam 0.5 Mg Tablet) 0.5 mg PO DAILY PRN PRN Reason: anxiety Last Admin: 10/12/23 02:34 Dose: 0.5 mg Documented By: MICHELL Metoprolol Tartrate (Metoprolol Tartrate 25 Mg Tablet) 25 mg PO BID [facility]; Protocol Last Admin: 10/20/23 09:06 Dose: 25 mg Documented By: JAYDE Oxycodone HCl (Oxycodone Hcl Immed Release 5 Mg Tablet) 5 mg PO Q6H PRN PRN Reason: Pain, Severe (Pain Scale 7-10) Last Admin: 10/19/23 23:37 Dose: 5 mg Documented By: TRESSA Potassium Chloride (Potassium Chloride Er 20 Meq Tab.Er.Prt) 20 meq PO DAILY [facility] Last Admin: 10/20/23 09:06 Dose: 20 meq Documented By: JAYDE Sodium Chloride (0.9 % Sodium Chloride Flush 3 Ml Syringe) 3 ml IVFLUSH QSHIFT [facility] Last Admin: 10/20/23 09:07 Dose: 3 ml Documented By: JAYDE Tbo-Filgrastim (Tbo-Filgrastim 300 Mcg/0.5 Ml Syringe) 300 mcg SUBCUT DAILY [facility] Last Admin: 10/19/23 10:24 Dose: 300 mcg Documented By: JAYDE Labs 10/20/23 08:19 10/20/23 08:19 Labs: Laboratory Results - last 24 hr 10/17/23 10/20/23 08:17 08:19 MCV 90.1 MCH 30.6 MCHC 34.0 RDW 15.7 Plt Count 7 L* D MPV Not Reportable Absolute Nucleated RBC 0.000 Nucleated RBC % (auto) 0.0 Anion Gap 12 Estim Creat Clear Calc 54.2 Estimated GFR > 60 Random Glucose 228 H Calcium 8.3 L Blood Type O Positive Antibody Screen NEGATIVE Crossmatch See Detail Assessment and Plan (1) Gram-negative bacteremia: Status: Acute Plan 73/F with acute myeloid leukemia on oral paliative chemotherapy, complicated by pancytopenia, COPD, and HLD, She was admitted through the ICU with septic shock ,pancytopenia, Neutropenic and has gram negative angelina bacteremi and PNA. Presently on Vancomycin, Cefepime and Doxyc. Septic shock due to psuedomonas bacteremia-required vasopressors in icu repeat blood cx negative was on cefepime 10/11 to 10/16. changed to meropenem 10/16 as cefepime may be contributing to thrombocytopenia get midline to complete Abx HypOtenison initially d/t septic shock hypotension on 10/11 d/t anemia resolved Transient AFIB on 10/11-related to anemia, was given dig and metoprolol and converted to sinus -continue metoprolol -no anticoagulation d/t anemia and low platlet, -cardiology following Neutropenia--no fever, WBC 0.6, ANC 0 -Granix daily until WBC 1K per onc -oncology following and think prognosis is poor Pancytopenia--d/t AML,, chemo -transfusion for Hgb < 7 or Plat < 10 -s/p 2 units of RBCs on 10/11, 1 unit on 10/18 -s/p 9 units of plat since hospitaliation, additional plat today Acute hypoxic respiratory failure d/t PNA, + parainfluezae--improved -O2 to keep sat 88 to 94, continue Abx as above HypOkalemia--replace orally COPD--no excacerbation continue inhalers, and O2 presently sating 96% on 1L Hypothyroidism on levothyroxine -tsh 0.7, levothyxoxine still not verified by pharm, last filled at pharmacy in July for 125 mcg Mood disorder/anxiety -ativan PRN moderate to severe Protein calorie malnutrition -ensure supplement DNI Poor prognosis compression device for DVT d/t anemia and low plat need to hospitalization -- panyctopenia, treatment for pseudomonas bacteremia PT recommends home with 24 hrs care vs rehab Will talk to her about Quality Stroke Does the patient have a stroke diagnosis?: No VTE Prior VTE?: No VTE Risk Level:: Medical - moderate - high VTE Device Contraindication: N/A - Device Ordered VTE Drug Contraindication: Treatment Not Indicated
[2023-10-20] MEDS: Tbo-Filgrastim 300 MCG/0.5 ML SYRINGE SUBCUT (11:19)
[2023-10-20] MEDS: Potassium Chloride Packet 20 MEQ PACKET 40 MEQ PO (11:19)
[2023-10-20] MEDS: oxyCODONE HCl Immed Release 5 MG TABLET PO (22:12)
[2023-10-21 01:11] VITALS: BP 119/61; PULSE 87; RESP 18; TEMP 36.8; O2SAT 98
[2023-10-21 03:28] VITALS: BP 126/60; PULSE 91; RESP 18; TEMP 36.6; O2SAT 100
[2023-10-21] MEDS: Levothyroxine Sodium 100 MCG/5 ML VIAL 50 MCG IVPUSH (06:26)
[2023-10-21 07:48] VITALS: BP 124/58; PULSE 93; RESP 20; TEMP 36.8; O2SAT 96
[2023-10-21] MEDS: Metoprolol Tartrate 25 MG TABLET PO ×2 (09:22→19:59)
[2023-10-21] MEDS: allopurinoL 300 MG TABLET PO (09:22)
[2023-10-21] MEDS: Acyclovir 200 MG CAPSULE 400 MG PO ×2 (09:23→19:59)
[2023-10-21] MEDS: Tbo-Filgrastim 300 MCG/0.5 ML SYRINGE SUBCUT (09:23)
[2023-10-21] MEDS: Cyanocobalamin (Vitamin B-12) 1,000 MCG TABLET 1000 MCG PO (09:23)
[2023-10-21] MEDS: 0.9 % Sodium Chloride Flush 3 ML SYRINGE IVFLUSH ×2 (09:23→23:39)
[2023-10-21] MEDS: Potassium Chloride ER 20 MEQ TAB.ER.PRT PO (09:23)
[2023-10-21 09:24] LABS: Hematocrit 27.9 % (37.0-47.0); Hemoglobin 9.6 g/dl (12.0-16.0); Mean Corpuscular HGB Conc 34.4 g/dl (31.0-35.0); Mean Corpuscular Hemoglobin 30.8 pg (27.0-33.0); Mean Corpuscular Volume 89.4 fL (80.0-98.0); Red Blood Count 3.12 X10*6/uL (4.20-5.50); Red Cell Distribution Width 15.2 % (11.0-16.0)
[2023-10-21] MEDS: oxyCODONE HCl Immed Release 5 MG TABLET PO ×2 (09:29→16:42)
[2023-10-21 09:31] LABS: Platelet Count 29 X10*3/uL (160-400); White Blood Count 0.6 X10*3/uL (4.8-10.8)
[2023-10-21 09:39] LABS: Anion Gap 11 (12-20); Blood Urea Nitrogen 17 mg/dL (9-16); Calcium 8.2 mg/dL (8.4-10.2); Carbon Dioxide 28 mmol/L (22-29); Chloride 101 mmol/L (96-108); Creatinine Clr Calc Pharmacy 52.5; Estimated Glomerular Filt Rate > 60; Glucose Random 232 mg/dL (60-115); Potassium 2.7 mmol/L (3.3-5.1); Sodium 137 mmol/L (135-145)
--- NOTE | 2023-10-21 10:11 | HO.PM.IMPN ---
Subjective Subjective Date of Service: 10/21/23 Interval History: She says she feels better and wants to walk more, K is low, plat and blood count better Physical Exam Vital Signs: Vital Signs: Last Vital Signs Temp 98.3 F 10/21/23 07:48 Pulse 93 10/21/23 07:48 Resp 20 10/21/23 07:48 BP 124/58 L 10/21/23 07:48 Pulse Ox 96 10/21/23 07:48 O2 Del Method Nasal Cannula 10/21/23 07:48 O2 Flow Rate 2 10/21/23 07:48 BMI result Body Mass Index 20.3 Const: Other: General: oriented to self, frail, emaciated, no distress Resp: CTA bilateral, normal effore CVS: S1,S2,RRR GI: +BS, NT, no distention Skin: No rash Neuro: motor grossly intact Psych: flat Objective Data Active Medications Acyclovir (Acyclovir 200 Mg Capsule) 400 mg PO BID [facility] Last Admin: 10/21/23 09:23 Dose: 400 mg Documented By: NAPOLEON Allopurinol (Allopurinol 300 Mg Tablet) 300 mg PO DAILY [facility] Last Admin: 10/21/23 09:22 Dose: 300 mg Documented By: NAPOLEON Cyanocobalamin (Cyanocobalamin (Vitamin B-12) 1,000 Mcg Tablet) 1,000 mcg PO DAILY [facility] Last Admin: 10/21/23 09:23 Dose: 1,000 mcg Documented By: NAPOLEON Meropenem 1 gm/ Sodium (Chloride) 100 mls @ 200 mls/hr IV Q8H [facility] Last Infusion: 10/21/23 07:47 Dose: Infused Documented By: NAPOLEON Potassium Chloride (Potassium Chloride/H20) 10 meq in 100 mls @ 100 mls/hr IV Q1H [facility] Stop: 10/21/23 12:14 Levothyroxine Sodium (Levothyroxine Sodium 100 Mcg/5 Ml Vial) 50 mcg IVPUSH DAILY@0600 [facility] Last Admin: 10/21/23 06:26 Dose: 50 mcg Documented By: ALBERTO Metoprolol Tartrate (Metoprolol Tartrate 25 Mg Tablet) 25 mg PO BID [facility]; Protocol Last Admin: 10/21/23 09:22 Dose: 25 mg Documented By: NAPOLEON Oxycodone HCl (Oxycodone Hcl Immed Release 5 Mg Tablet) 5 mg PO Q6H PRN PRN Reason: Pain, Severe (Pain Scale 7-10) Last Admin: 10/21/23 09:29 Dose: 5 mg Documented By: NAPOLEON Potassium Chloride (Potassium Chloride Er 20 Meq Tab.Er.Prt) 20 meq PO DAILY [facility] Last Admin: 10/21/23 09:23 Dose: 20 meq Documented By: NAPOLEON Potassium Chloride (Potassium Chloride Packet 20 Meq Packet) 40 meq PO ONCE ONE Stop: 10/21/23 10:09 Sodium Chloride (0.9 % Sodium Chloride Flush 3 Ml Syringe) 3 ml IVFLUSH QSHIFT [facility] Last Admin: 10/21/23 09:23 Dose: 3 ml Documented By: NAPOLEON Tbo-Filgrastim (Tbo-Filgrastim 300 Mcg/0.5 Ml Syringe) 300 mcg SUBCUT DAILY [facility] Last Admin: 10/21/23 09:23 Dose: 300 mcg Documented By: NAPOLEON Labs 10/21/23 09:09 10/21/23 09:09 Labs: Laboratory Results - last 24 hr 10/20/23 10/21/23 12:09 09:09 MCV 89.4 MCH 30.8 MCHC 34.4 RDW 15.2 Plt Count 29 L D MPV 9.0 L Absolute Nucleated RBC 0.000 Nucleated RBC % (auto) 0.0 Anion Gap 11 L Estim Creat Clear Calc 52.5 Estimated GFR > 60 Random Glucose 232 H Calcium 8.2 L Blood Type O Positive Antibody Screen NEGATIVE Assessment and Plan (1) Gram-negative bacteremia: Status: Acute Plan 73/F with acute myeloid leukemia on oral paliative chemotherapy, complicated by pancytopenia, COPD, and HLD, She was admitted through the ICU with septic shock ,pancytopenia, Neutropenic and has gram negative angelina bacteremi and PNA. Presently on Vancomycin, Cefepime and Doxyc. Septic shock due to psuedomonas bacteremia-required vasopressors in icu repeat blood cx negative was on cefepime 10/11 to 10/16. changed to meropenem 10/16 as cefepime may be contributing to thrombocytopenia get midline to complete Abx, ideally 14 days, but will treat until no longer neutropenic HypOtenison on presenation initially d/t septic shock hypotension on 10/11 d/t anemia resolved Transient AFIB on 10/11-related to anemia, was given dig and metoprolol and converted to sinus -continue metoprolol -no anticoagulation d/t anemia and low platlet, -cardiology following Neutropenia--no fever, WBC 0.6, ANC 0 -Granix daily until WBC 1K per onc -oncology following and think prognosis is poor Pancytopenia--d/t AML,, chemo -transfusion for Hgb < 7 or Plat < 10 -s/p 2 units of RBCs on 10/11, 1 unit on 10/18 -s/p 11 units of plat so far Acute hypoxic respiratory failure d/t PNA, + parainfluezae--improved -O2 to keep sat 88 to 94, continue Abx as above HypOkalemia--replace orally PO, and IV , check magnesium COPD--no excacerbation continue inhalers, and O2 presently sating 96% on 1L Hypothyroidism on levothyroxine -tsh 0.7, levothyxoxine still not verified by pharm, last filled at pharmacy in July for 125 mcg Mood disorder/anxiety -ativan PRN moderate to severe Protein calorie malnutrition -ensure supplement DNI Poor prognosis compression device for DVT d/t anemia and low plat need to hospitalization -- panyctopenia, treatment for pseudomonas bacteremia PT recommends home with 24 hrs care vs rehab arranging a meeting with HCP to discuss goals of care Quality Stroke Does the patient have a stroke diagnosis?: No VTE Prior VTE?: No VTE Risk Level:: Medical - moderate - high VTE Device Contraindication: N/A - Device Ordered VTE Drug Contraindication: Treatment Not Indicated
[2023-10-21 10:26] LABS: Magnesium 1.5 mg/dL (1.6-2.6)
[2023-10-21] MEDS: Potassium Chloride/H20 10 MEQ/100 ML PIGGYBACK 100 MEQ IV ×2 (11:08→12:52)
[2023-10-21] MEDS: Potassium Chloride Packet 20 MEQ PACKET PO (11:13)
[2023-10-21 12:00] VITALS: BP 101/50; PULSE 92; RESP 20; TEMP 36.6; O2SAT 96
--- NOTE | 2023-10-21 12:35 | PM.HEMONCPN ---
Medical Summary - Medical Summary Date of Service: 10/21/23 Chief complaint: AML Primary Care Provider: Burt uJarez MD Interval History Interval history: Merline Srinivasan is a 73 year old female from [place] with acute myeloid leukemia treated with induction chemotherapy at [facility] who relapsed. She is treated at [facility] lately with palliative hydroxyurea. She is admitted with pancytopenia and septic shock to the ICU and has been stabilized. She remains hemodynamically stable. She denies new pain but remains weak. She remains pancytopenic with a wbc of 0.6. Review of Systems - Constitutional Reports daytime sleepiness, Reports lack of energy - Cardiovascular Reports rapid, pounding, or irregular heartbeat, Reports shortness of breath - Respiratory Reports dyspnea on exertion - Gastrointestinal Reports dyspepsia - Neurologic Reports confusion, Reports syncope, Reports weakness PMFSH Medical History: Medical History (Last Reviewed 10/18/23 @ 15:27 by Jeanie Mireles, PT) Acute myeloid leukemia Anemia Anemia Anxiety COPD (chronic obstructive pulmonary disease) COPD with asthma Depression Dyspnea Gram-positive bacteremia Hypothyroidism Non-Hodgkin lymphoma in remission Thrombocytopenia Tobacco dependence Family History: Family History (Last Reviewed 10/11/23 @ 23:42 by Mary Alice Alfaro MD) Father CAD (coronary artery disease) Family history: reviewed and not pertinent Surgical History: Surgical History (Last Reviewed 10/18/23 @ 15:27 by Jeanie Mireles, PT) H/O: hysterectomy History of salpingo-oophorectomy S/P angiogram of extremity Onset Date: 02/13/20 Social History: Social History (Last Reviewed 10/11/23 @ 23:42 by Mary Alice Alfaro MD) Living Situation History: Household Members: None Housing: Apartment Do you presently have visiting nurse or other home services: No Alcohol History: Unable to assess alcohol history related to: Unable to respond Alcohol History Details: 1. How often do you have a drink containing alcohol?: a. Never 3. How often do you have six or more drinks on one occasion?: a. Never AUDIT-C Alcohol total score: 0 Currently Displaying Signs/Symptoms of Alcohol Withdrawal: No Tobacco History: Patient Tobacco Use Status: Current everyday Tobacco Tobacco use type: Cigarette Cigarette Packs Per Day: 1 Years Smoked: 40 Smoked in Last 30 Days: Yes e-Cigarette/Vaping Use: Never Used Patient Interested in Nicotine Replacement: No Patient Given Instructions on How to Stop Smoking: No Second Hand Smoke Exposure: No Second Hand Smoke Exposure comment: not interested Substance Use History: Use of substances other than those prescribed or required for medical reasons: No Currently Displaying Signs/Symptoms of Drug Intoxication Withdrawal: No Any prior treatment program specific to substance use: No Domestic Abuse History: Do you feel safe in your current relationship?: No Current Relationship Is there a partner from a previous relationship who is making you feel unsafe now?: No Are you made to feel afraid or neglected: No Advance Directives: Advance Directives: Yes Advance Directives on File: Yes Advance Directives Date on File: 07/16/21 Homicidal Assessment: Do you have a plan to hurt others: No Plan Nutrition Assessment: Recently lost weight without trying: No Eating poorly because of decreased appetite: No Nutrition Risks: No Nutritional Risk Patient : No : No Poor oral hygiene: No Occupation Assessmet: service: No Current occupational status: retired Home Medications and Allergies Current Medications: Current Medications Acyclovir (Acyclovir 200 Mg Capsule) 400 mg PO BID [facility] Last Admin: 10/21/23 09:23 Dose: 400 mg Allopurinol (Allopurinol 300 Mg Tablet) 300 mg PO DAILY [facility] Last Admin: 10/21/23 09:22 Dose: 300 mg Cyanocobalamin (Cyanocobalamin (Vitamin B-12) 1,000 Mcg Tablet) 1,000 mcg PO DAILY [facility] Last Admin: 10/21/23 09:23 Dose: 1,000 mcg Meropenem 1 gm/ Sodium (Chloride) 100 mls @ 200 mls/hr IV Q8H [facility] Last Infusion: 10/21/23 07:47 Dose: Infused Levothyroxine Sodium (Levothyroxine Sodium 100 Mcg/5 Ml Vial) 50 mcg IVPUSH DAILY@0600 [facility] Last Admin: 10/21/23 06:26 Dose: 50 mcg Metoprolol Tartrate (Metoprolol Tartrate 25 Mg Tablet) 25 mg PO BID [facility]; Protocol Last Admin: 10/21/23 09:22 Dose: 25 mg Oxycodone HCl (Oxycodone Hcl Immed Release 5 Mg Tablet) 5 mg PO Q6H PRN PRN Reason: Pain, Severe (Pain Scale 7-10) Last Admin: 10/21/23 09:29 Dose: 5 mg Potassium Chloride (Potassium Chloride Er 20 Meq Tab.Er.Prt) 20 meq PO DAILY [facility] Last Admin: 10/21/23 09:23 Dose: 20 meq Sodium Chloride (0.9 % Sodium Chloride Flush 3 Ml Syringe) 3 ml IVFLUSH QSHIFT [facility] Last Admin: 10/21/23 09:23 Dose: 3 ml Tbo-Filgrastim (Tbo-Filgrastim 300 Mcg/0.5 Ml Syringe) 300 mcg SUBCUT DAILY [facility] Last Admin: 10/21/23 09:23 Dose: 300 mcg Home Medications ?Medication ?Instructions ?Recorded ?Confirmed ?Type acyclovir 400 mg tablet 400 mg PO BID 01/31/20 10/10/23 History levothyroxine 125 mcg tablet 125 mcg PO DAILY@0600 01/31/20 08/12/23 History trazodone 100 mg tablet 100 mg PO BEDTIME 01/31/20 08/12/23 History lorazepam 0.5 mg tablet 0.5 mg PO DAILY PRN anxiety 03/01/22 10/10/23 History cyanocobalamin (vitamin B-12) 1,000 mcg PO DAILY 02/02/23 10/10/23 History 1,000 mcg tablet potassium chloride 20 mEq 20 meq PO DAILY 02/02/23 10/10/23 History tablet,extended release fexofenadine 180 mg tablet 180 mg PO DAILY 07/10/23 08/12/23 History (Nahed Allergy) allopurinol 300 mg tablet 300 mg PO DAILY 10/10/23 10/10/23 History decitabine 35 mg-cedazuridine 100 1 tab PO DAILY 10/10/23 10/10/23 History mg tablet (Inqovi) nystatin 100,000 unit/mL oral 5 ml PO QID 10/10/23 10/10/23 History suspension venetoclax 100 mg tablet See Rx Instructions .Route .COMPLEX 10/10/23 History (Venclexta) Allergies Allergy/AdvReac Type Severity Reaction Status Date / Time adhesive tape Allergy Unknown RASH Verified 10/09/23 15:33 bacitracin [Bacitracin] Allergy Unknown RASH Verified 10/09/23 15:33 Exam Vital signs: Vital Signs Temp 97.8 F 10/21/23 12:00 Pulse 92 10/21/23 12:00 Resp 20 10/21/23 12:00 BP 101/50 L 10/21/23 12:00 Pulse Ox 96 10/21/23 12:00 O2 Del Method Nasal Cannula 10/21/23 12:00 O2 Flow Rate 2 10/21/23 12:00 Intake & Output 10/20/23 10/21/23 10/21/23 18:59 06:59 18:59 Intake Total 921 / 1872 951 / 1872 100 / 100 Output Total 200 / 1350 1150 / 1350 Balance 721 / 522 -199 / 522 100 / 100 Urine Output (Average ml/kg/hr) 0.37 2.10 2.10 Intake: Intake, Oral Amount 240 / 780 540 / 780 Intake (Blood Product) Amount 381 / 692 311 / 692 Plt Aph Pas Pathreduced(E8341) 311 / 311 Unit [id number] Plt Aph Pas Pathreduced(E8342) 381 / 381 Unit [id number] Intake, IV Amount 300 / 400 100 / 400 100 / 100 0.9 % Sodium Chloride 100 ml @ 100 / 100 100 mls/hr IV ONCE ONE Rx#: [id number] Meropenem 1 gm In 0.9 % Sodium 200 / 300 100 / 300 100 / 100 Chloride 100 ml @ 200 mls/hr IV Q8H [facility] Rx#:[id number] Output: Output, Urine Amount 200 / 1350 1150 / 1350 Other: Meal Refused No NPO No Breakfast % Eaten bites Lunch % Eaten bites Dinner % Eaten 10% Eating (Feeding) Ability Set Up only Number of Incontinent Voids 1 Urine purewick purewick Urine Color Yellow Yellow Last Bowel Movement 10/16/23 10/16/23 Weight 45.6 kg BMI result Body Mass Index 20.3 - Constitutional Present: no acute distress, cachectic - Routine HEENT Exam Head: Present: atraumatic, normal inspection - Routine Neck Exam Present: full ROM - Routine Respiratory Exam Present: decreased breath sounds, prolonged expiratory phase, rhonchi, wheezes - Routine Cardiovascular Exam Cardiovascular: Present: RRR, tachycardia - Routine Abdominal Exam Present: diminished bowel sounds, nontender - Routine Extremities Exam Present: nontender (mediport right chest wall) Data - Labs CBC & Chem 7: 10/21/23 09:09 10/21/23 09:09 - Imaging Radiologist's impression: ITS Impressions Chest X-Ray 10/09/23 16:40 IMPRESSION: 1. No radiographic evidence of acute infiltrates or failure. 2. Port-A-Cath remain in place properly positioned. Abdomen/Pelvis CT 10/09/23 20:21 IMPRESSION: CT scan of the chest: * Interval development of multifocal irregular masslike opacifications in the lungs bilaterally, most prominently involving the left lung apex. Findings are suspicious for multifocal infectious or inflammatory nodules. In the appropriate clinical setting, entities such as septic emboli can also be considered in the differential. * Mild interstitial pulmonary edema is seen. * Calcified mediastinal and hilar lymph nodes, consistent with granulomatous lung disease. CT scan of the abdomen and pelvis: * Mild fluid distention of the small bowel loops with scattered air-fluid levels. This is a nonspecific finding and may be related to a diffuse gastroenteritis. No evidence of obstruction or perforation. * Prominent rectal distention with fecal material moderate volume liquid stool in the left colon noted. * Prominent atherosclerotic vascular disease. Chest CT 10/09/23 20:21 IMPRESSION: CT scan of the chest: * Interval development of multifocal irregular masslike opacifications in the lungs bilaterally, most prominently involving the left lung apex. Findings are suspicious for multifocal infectious or inflammatory nodules. In the appropriate clinical setting, entities such as septic emboli can also be considered in the differential. * Mild interstitial pulmonary edema is seen. * Calcified mediastinal and hilar lymph nodes, consistent with granulomatous lung disease. CT scan of the abdomen and pelvis: * Mild fluid distention of the small bowel loops with scattered air-fluid levels. This is a nonspecific finding and may be related to a diffuse gastroenteritis. No evidence of obstruction or perforation. * Prominent rectal distention with fecal material moderate volume liquid stool in the left colon noted. * Prominent atherosclerotic vascular disease. Assessment and Plan Patient Active problem list reviewed?: Yes (1) Acute myeloid leukemia Status: Acute Assessment and plan: She will need an ID consult, growth factor and blood product support, broad spectrum antibiotics and neutropenic precautions. I will follow daily. The potassium is only 2.9 and will need repletion. Her wbc is rising. (2) Pancytopenia Status: Acute Assessment and plan: I agree with current therapy. Will bgin to assess her wishes about continued hospital level of care. She wishes to continue therapy. - Time Spent With Patient Time Spent with Patient (in minutes): 20
--- NOTE | 2023-10-21 12:56 | HO.MIDLINE ---
Midline Insertion MIDLINE INSERTION Diagnosis: Sepsis/Gram negative bacteremia Indication: usp antibiotics needed Pertinent Labs: reviewed Technique: Using sterile technique including cap and mask, glove and drape, the right arm was prepped and draped in the usual sterile fashion of full barrier technique with CHG. Using ultrasound guidance, right basilic vein access was obtained on first attempt. A 20G X 8 CM non-PASV ST Midline was positioned. The procedure was performed in S272. Ultrasound was used to document vein patency and for needle entry. A formal ultrasound picture was recorded. Vascular Emergency Department Physician has released the line for use and it is currently dressed with a StatLock, Tegaderm, and CHG disc. Verification has been performed for blood return and line patency. Arm Circumference: 19 CM Equipment: BARD PowerGlide ST Midline Catheter Type: 20G X 8 CM non-PASV Midline catheter Lot #: [id number]
--- NOTE | 2023-10-21 13:36 | HE.PHANOTE ---
re granix per dr norman, patient is daily sundeep granix for leukemia/neutropenia. Per package insert granix should be given daily for up to 14 days or until ANC reaches 10,000/mm3 and discontinued once greater than 10,000. Per oncologist (per Dr Norman via tiger text) we are continuing until WBC greater than 1,000. Will continue daily monitoring.
[2023-10-21 14:22] LABS: Neutrophils Absolute Auto 0.1 x10*3/uL (2.0-8.3)
[2023-10-21] MEDS: Magnesium Sulfate/H2O 2 GM/50 ML PIGGYBACK IV (15:02)
[2023-10-21 15:28] LABS: Thyroid Stimulating Hormone 7.49 uIU/mL (0.32-4.0)
[2023-10-21 15:56] VITALS: BMI 20.3
[2023-10-21 16:00] VITALS: BP 138/67; PULSE 95; RESP 20; TEMP 36.8; O2SAT 94
--- NOTE | 2023-10-21 16:05 | MHC.CLN ---
NUTRITION DIET=REGULAR, NEUTROPENIC PRECAUTIONS. ACCEPTS ENSURE CLEAR SUPPLEMENT. ENSURE CLEAR TID PROVIDES 720 KCALS, 24 G PROTEIN. QUALIFIES MODERATELY MALNOURISHED IN THE CONTEXT OF CHRONIC ILLNESS. CURRENT INTAKE VERY POOR EXCEPT WILL TAKE ENSURE SUPPLEMENT. CONTINUE TO ENCOURAGE PO ABLE. PER MOLST, NO ARTIFICIAL NUTRITION. SEE CLINICAL NUTRITION ASSESSMENT 10/21/23.
--- NOTE | 2023-10-21 16:59 | MHC.CM.PN ---
EMR REVIEWED, PER HOSPITALIST PLAN FOR GOALS OF CARE MEETING HOWEVER PER TODAYS ONCOLOGY NOTE PT WANTS TO CONT TX, CM WILL CONT TO FOLLOW DC NEEDS.
[2023-10-21 19:54] VITALS: BP 140/62; PULSE 103; RESP 20; TEMP 36.6; O2SAT 95
[2023-10-22] VITALS (14 sets, daily range): BP systolic 91–148; BP diastolic 50–71; PULSE 71–94; RESP 18–20; TEMP 36.3–36.8; O2SAT 95–98; BMI 20.8
[2023-10-22] MEDS: Levothyroxine Sodium 125 MCG TABLET PO (05:42)
[2023-10-22] MEDS: oxyCODONE HCl Immed Release 5 MG TABLET PO ×2 (05:44→20:30)
[2023-10-22 06:38] LABS: Hematocrit 24.3 % (37.0-47.0); Mean Corpuscular HGB Conc 32.9 g/dl (31.0-35.0); Mean Corpuscular Hemoglobin 30.5 pg (27.0-33.0); Mean Corpuscular Volume 92.7 fL (80.0-98.0); Mean Platelet Volume 10.2 fL (9.4-12.3); Neut%MD 48.2 %; Neutrophils Absolute Auto 0.3 x10*3/uL (2.0-8.3); Red Blood Count 2.62 X10*6/uL (4.20-5.50); Red Cell Distribution Width 15.2 % (11.0-16.0); WBCANC 0.6 X10*3/uL
[2023-10-22 06:40] LABS: WBC ABN SCTR FOR CBC 1
[2023-10-22 06:45] LABS: White Blood Count 0.6 X10*3/uL (4.8-10.8)
[2023-10-22 06:46] LABS: Platelet Count 12 X10*3/uL (160-400)
[2023-10-22 06:52] LABS: Anion Gap 14 (12-20); Blood Urea Nitrogen 21 mg/dL (9-16); Calcium 8.2 mg/dL (8.4-10.2); Carbon Dioxide 25 mmol/L (22-29); Chloride 100 mmol/L (96-108); Creatinine Clr Calc Pharmacy 48.1; Estimated Glomerular Filt Rate > 60; Glucose Random 343 mg/dL (60-115); Potassium 3.5 mmol/L (3.3-5.1); Sodium 135 mmol/L (135-145)
[2023-10-22] MEDS: Potassium Chloride ER 20 MEQ TAB.ER.PRT PO ×2 (09:59→20:29)
[2023-10-22] MEDS: Cyanocobalamin (Vitamin B-12) 1,000 MCG TABLET 1000 MCG PO (09:59)
[2023-10-22] MEDS: allopurinoL 300 MG TABLET PO (09:59)
[2023-10-22] MEDS: 0.9 % Sodium Chloride Flush 3 ML SYRINGE IVFLUSH ×3 (10:02→23:48)
[2023-10-22] MEDS: Acyclovir 200 MG CAPSULE 400 MG PO ×2 (10:02→20:29)
[2023-10-22] MEDS: Metoprolol Tartrate 25 MG TABLET PO ×2 (10:32→20:29)
[2023-10-22] MEDS: Tbo-Filgrastim 300 MCG/0.5 ML SYRINGE SUBCUT (10:32)
--- NOTE | 2023-10-22 11:05 | HO.PM.IMPN ---
Subjective Subjective Date of Service: 10/22/23 Interval History: She is still very frail not eating much plats down again, h/h seems ok Physical Exam Vital Signs: Vital Signs: Last Vital Signs Temp 97.4 F 10/22/23 07:27 Pulse 79 10/22/23 10:32 Resp 20 10/22/23 07:27 BP 123/59 L 10/22/23 10:32 Pulse Ox 97 10/22/23 07:27 O2 Del Method Oxymask 10/22/23 07:27 O2 Flow Rate 6 10/22/23 07:27 BMI result Body Mass Index 20.8 Const: Other: General: oriented to self Resp: CTA bilateral CVS: S1,S2,RRR GI: +BS, NT, no distention Skin: No rash Neuro: motor grossly intact Psych: appropriate affect Objective Data Active Medications Acyclovir (Acyclovir 200 Mg Capsule) 400 mg PO BID [facility] Last Admin: 10/22/23 10:02 Dose: 400 mg Documented By: JAZMYN Allopurinol (Allopurinol 300 Mg Tablet) 300 mg PO DAILY [facility] Last Admin: 10/22/23 09:59 Dose: 300 mg Documented By: JAZMYN Cyanocobalamin (Cyanocobalamin (Vitamin B-12) 1,000 Mcg Tablet) 1,000 mcg PO DAILY [facility] Last Admin: 10/22/23 09:59 Dose: 1,000 mcg Documented By: JAZMYN Meropenem 1 gm/ Sodium (Chloride) 100 mls @ 200 mls/hr IV Q8H [facility] Last Infusion: 10/22/23 08:07 Dose: Infused Documented By: JAZMYN Levothyroxine Sodium (Levothyroxine Sodium 125 Mcg Tablet) 125 mcg PO DAILY@0600 [facility] Last Admin: 10/22/23 05:42 Dose: 125 mcg Documented By: LUIS MIGUEL Metoprolol Tartrate (Metoprolol Tartrate 25 Mg Tablet) 25 mg PO BID [facility]; Protocol Last Admin: 10/22/23 10:32 Dose: 25 mg Documented By: JAZMYN Oxycodone HCl (Oxycodone Hcl Immed Release 5 Mg Tablet) 5 mg PO Q6H PRN PRN Reason: Pain, Severe (Pain Scale 7-10) Last Admin: 10/22/23 05:44 Dose: 5 mg Documented By: LUIS MIGUEL Potassium Chloride (Potassium Chloride Er 20 Meq Tab.Er.Prt) 20 meq PO DAILY [facility] Last Admin: 10/22/23 09:59 Dose: 20 meq Documented By: JAZMYN Sodium Chloride (0.9 % Sodium Chloride Flush 3 Ml Syringe) 3 ml IVFLUSH QSHIFT [facility] Last Admin: 10/22/23 10:02 Dose: 3 ml Documented By: JAZMYN Tbo-Filgrastim (Tbo-Filgrastim 300 Mcg/0.5 Ml Syringe) 300 mcg SUBCUT DAILY [facility] Last Admin: 10/22/23 10:32 Dose: 300 mcg Documented By: JAZMYN Labs 10/22/23 06:23 10/22/23 06:23 Labs: Laboratory Results - last 24 hr 10/21/23 10/22/23 09:09 06:23 MCV 92.7 MCH 30.5 MCHC 32.9 RDW 15.2 Plt Count 12 L* D MPV 10.2 Absolute Neuts (auto) 0.1 L 0.3 L Absolute Nucleated RBC 0.000 Nucleated RBC % (auto) 0.0 Anion Gap 14 Estim Creat Clear Calc 48.1 Estimated GFR > 60 Random Glucose 343 H Calcium 8.2 L TSH 7.49 H Assessment and Plan (1) Gram-negative bacteremia: Status: Acute Plan 73/F with acute myeloid leukemia on oral paliative chemotherapy, complicated by pancytopenia, COPD, and HLD, She was admitted through the ICU with septic shock ,pancytopenia, Neutropenic and has pseudomonas bacteremia Septic shock due to psuedomonas bacteremia-required vasopressors in icu repeat blood cx negative was on cefepime 10/11 to 10/16. changed to meropenem 10/16 as cefepime may be contributing to thrombocytopenia has midline as of 10/20 to complete Abx, ideally 14 days, but will treat until no longer neutropenic ANC is still < 1 despite granix daily Neutropenia--no fever, WBC 0.6, ANC 0.3 -Granix daily until WBC 1K per onc -oncology following and think prognosis is poor Pancytopenia--related to AML -She continues to require intermittent RBC transfusion, -transfuse for Hgb < 7 of if symptomatic -She has received upt 11 units of platlets so far and is unbable to maintain platlets level HypOtenison on presenation initially d/t septic shock hypotension on 10/11 d/t anemia resolved Transient AFIB on 10/11-related to anemia, was given dig and metoprolol and converted to sinus -continue metoprolol -no anticoagulation d/t anemia and low platlet, -cardiology following Hyperglycemia--check A1C, -sliding coverage, high risk of hypoglycemia Acute hypoxic respiratory failure d/t PNA, + parainfluezae--improved, still requiring O2 -O2 to keep sat 88 to 94, continue Abx as above HypOkalemia--replace orally PO, and IV Hypomagnesemia--replaced, recheck COPD--no excacerbation continue inhalers, and O2 presently sating 96% on 1L Hypothyroidism on levothyroxine -TSH 7 on 10/20, levothyroxine 125 mg daily Mood disorder/anxiety -ativan PRN severe Protein calorie malnutrition -ensure supplement DNI Poor prognosis compression device for DVT d/t anemia and low plat need to hospitalization -- panyctopenia, treatment for pseudomonas bacteremia PT recommends home with 24 hrs care vs rehab Treatement plan and hospital course, discussed with HCP again (Crystal), at this time, underlying infection is treated. Her blood dyscrasia has not improved despite multiple transfusion for RBC and Platlets, Granix likely from worsening AML and at this point she is not candidate for any other treatment. I have discussed hospice as an option with the health care proxy who will try to discuss with her as well..Her prognosis is poor and recovery from this hospitalization will prove very difficult despite aggressive treatment Quality Stroke Does the patient have a stroke diagnosis?: No VTE Prior VTE?: No VTE Risk Level:: Medical - moderate - high VTE Device Contraindication: N/A - Device Ordered VTE Drug Contraindication: Treatment Not Indicated
[2023-10-22 11:26] LABS: Glucose, Whole Blood 276 mg/dL (60-115)
[2023-10-22] MEDS: Insulin Lispro 100 UNIT/ML 3 ML VIAL SUBCUT ×2 (12:22→17:30)
[2023-10-22 12:31] LABS: Magnesium 1.7 mg/dL (1.6-2.6)
[2023-10-22 12:34] LABS: Estimated Average Glucose 148 mg/dL; Hemoglobin A1c % 6.8 % (<6.0)
[2023-10-22 16:39] LABS: Glucose, Whole Blood 271 mg/dL (60-115)
[2023-10-22 20:25] LABS: Glucose, Whole Blood 104 mg/dL (60-115)
[2023-10-23] VITALS (11 sets, daily range): BP systolic 99–119; BP diastolic 48–61; PULSE 63–79; RESP 20–28; TEMP 34.4–37; O2SAT 88–97
--- NOTE | 2023-10-23 01:40 | PM.EVENT ---
Event Note Date of Service: 10/23/23 Event Note: Patient with increasing oxygen requirements overnight. Bilateral crackles present. Obtaining chest x-ray and VBG Time Spent With Patient Time: Total time managing care of this patient today ____ minutes.
[2023-10-23] MEDS: Albuterol/Iprat 2.5/0.5MG 3 ML AMPUL.NEB INHALE (01:48)
[2023-10-23 03:09] LABS: Venous Blood Gas Refer to POC result
[2023-10-23 03:09] LABS: VBG HCO3 34 mmol/L (22-26); VBG pCO2 54 mmHg; VBG pH 7.41 (7.32-7.43); VBG pO2 32 mmHg
--- NOTE | 2023-10-23 03:42 | PC.NURSE ---
Beginning of shift around 23:00 pt. was on 5L oxymask satting 94%. T/W administered ordered IV meropenum and shortly after pt. was noted to be desatting in the mid to low 80's with audible crackles. Resp. called and at bedside to evaluate. Oxymask needed to be increased from 5L to 12L to get patient to 88%. MD made aware. CXR and VBG's ordered. PRN albuteral treatment ordered and administered. Pt. O2 sats improving. Now satting 96% on 8L oxymask around 03:50. Will continue to monitor and titrate O2.
[2023-10-23] MEDS: Levothyroxine Sodium 125 MCG TABLET PO (04:58)
[2023-10-23] MEDS: oxyCODONE HCl Immed Release 5 MG TABLET PO (04:59)
[2023-10-23 08:03] LABS: Glucose, Whole Blood 235 mg/dL (60-115)
[2023-10-23] MEDS: Acyclovir 200 MG CAPSULE 400 MG PO (08:08)
[2023-10-23] MEDS: Potassium Chloride ER 20 MEQ TAB.ER.PRT PO (08:08)
[2023-10-23] MEDS: Metoprolol Tartrate 25 MG TABLET PO (08:08)
[2023-10-23] MEDS: allopurinoL 300 MG TABLET PO (08:08)
[2023-10-23] MEDS: Cyanocobalamin (Vitamin B-12) 1,000 MCG TABLET 1000 MCG PO (08:08)
[2023-10-23] MEDS: Insulin Lispro 100 UNIT/ML 3 ML VIAL SUBCUT ×3 (08:09→16:55)
[2023-10-23] MEDS: Tbo-Filgrastim 300 MCG/0.5 ML SYRINGE SUBCUT (08:12)
[2023-10-23] MEDS: 0.9 % Sodium Chloride Flush 3 ML SYRINGE IVFLUSH (08:15)
[2023-10-23 08:32] LABS: Neut%MD 53.7 %; Neutrophils Absolute Auto 0.4 x10*3/uL (2.0-8.3); WBCANC 0.8 X10*3/uL
[2023-10-23 08:51] LABS: Hematocrit 21.6 % (37.0-47.0); Hemoglobin 7.3 g/dl (12.0-16.0); Mean Corpuscular HGB Conc 33.8 g/dl (31.0-35.0); Mean Corpuscular Hemoglobin 31.2 pg (27.0-33.0); Mean Corpuscular Volume 92.3 fL (80.0-98.0); Mean Platelet Volume 10.9 fL (9.4-12.3); Red Blood Count 2.34 X10*6/uL (4.20-5.50); Red Cell Distribution Width 15.5 % (11.0-16.0)
[2023-10-23 08:53] LABS: NRBC Pct Auto 2.7 /100WBC (0.0-0.2); Platelet Count 21 X10*3/uL (160-400)
[2023-10-23 08:58] LABS: White Blood Count 0.8 X10*3/uL (4.8-10.8)
--- NOTE | 2023-10-23 10:44 | HO.PM.IMPN ---
Subjective Subjective Date of Service: 10/23/23 Interval History: She is still very frail not eating much plats down again, down again overnight O2 requirement went up a CXR is showing a Large right upper to lower lung field infiltrate Physical Exam Vital Signs: Vital Signs: Last Vital Signs Temp 97 F 10/23/23 08:00 Pulse 64 10/23/23 08:00 Resp 24 H 10/23/23 08:00 BP 99/52 L 10/23/23 08:00 Pulse Ox 97 10/23/23 08:00 O2 Del Method Oxymask 10/23/23 08:00 O2 Flow Rate 6 10/23/23 08:00 BMI result Body Mass Index 20.8 Const: Other: General: oriented to self, place and aware of date Resp: CTA bilateral CVS: S1,S2,RRR GI: +BS, NT, no distention Skin: No rash Neuro: motor grossly intact Psych: appropriate affect Objective Data Active Medications Acyclovir (Acyclovir 200 Mg Capsule) 400 mg PO BID [facility] Last Admin: 10/23/23 08:08 Dose: 400 mg Documented By: KASSY Albuterol/Ipratropium (Albuterol/Iprat 2.5/0.5mg 3 Ml Ampul.Neb) 3 ml INHALE Q4H PRN PRN Reason: Wheezing Last Admin: 10/23/23 01:48 Dose: 3 ml Documented By: JOVANNA Allopurinol (Allopurinol 300 Mg Tablet) 300 mg PO DAILY [facility] Last Admin: 10/23/23 08:08 Dose: 300 mg Documented By: KASSY Cyanocobalamin (Cyanocobalamin (Vitamin B-12) 1,000 Mcg Tablet) 1,000 mcg PO DAILY [facility] Last Admin: 10/23/23 08:08 Dose: 1,000 mcg Documented By: KASSY Glucose (Glucose Gel 15 Gm Gel..Gram.) 15 gm PO Q15M PRN; Protocol PRN Reason: per Hypoglycemia Standing Ord. Meropenem 1 gm/ Sodium (Chloride) 100 mls @ 200 mls/hr IV Q8H [facility] Stop: 11/01/23 10:00 Last Infusion: 10/23/23 08:45 Dose: Infused Documented By: KASSY Dextrose (D10) 250 mls @ 750 mls/hr IV Q15M PRN; Protocol PRN Reason: per Hypoglycemia Standing Ord. Vancomycin HCl 1,250 mg/ (Sodium Chloride) 250 mls @ 166.667 mls/hr IV ONCE ONE Stop: 10/23/23 11:44 Insulin Human Lispro (Insulin Lispro 100 Unit/Ml 3 Ml Vial) 0 unit SUBCUT QIDACHS [facility]; Protocol Last Admin: 10/23/23 08:09 Dose: 4 unit Documented By: KASSY Levothyroxine Sodium (Levothyroxine Sodium 125 Mcg Tablet) 125 mcg PO DAILY@0600 [facility] Last Admin: 10/23/23 04:58 Dose: 125 mcg Documented By: MIRNA Metoprolol Tartrate (Metoprolol Tartrate 25 Mg Tablet) 25 mg PO BID [facility]; Protocol Last Admin: 10/23/23 08:08 Dose: 25 mg Documented By: KASSY Oxycodone HCl (Oxycodone Hcl Immed Release 5 Mg Tablet) 5 mg PO Q6H PRN PRN Reason: Pain, Severe (Pain Scale 7-10) Last Admin: 10/23/23 04:59 Dose: 5 mg Documented By: MIRNA Pharmacy Consult (Consult Rx Vancomycin Dosing) 1 each MISCELLANE DAILY PRN PRN Reason: Consult order Potassium Chloride (Potassium Chloride Er 20 Meq Tab.Er.Prt) 20 meq PO BID [facility] Last Admin: 10/23/23 08:08 Dose: 20 meq Documented By: KASSY Sodium Chloride (0.9 % Sodium Chloride Flush 3 Ml Syringe) 3 ml IVFLUSH QSHIFT [facility] Last Admin: 10/23/23 08:15 Dose: 3 ml Documented By: KASSY Tbo-Filgrastim (Tbo-Filgrastim 300 Mcg/0.5 Ml Syringe) 300 mcg SUBCUT DAILY [facility] Last Admin: 10/23/23 08:12 Dose: 300 mcg Documented By: KASSY Labs 10/23/23 08:05 10/22/23 06:23 Labs: Laboratory Results - last 24 hr 10/20/23 10/22/23 10/22/23 12:09 06:23 11:22 MCV MCH MCHC RDW Plt Count MPV Immature Gran % (Auto) Neut % (Auto) Lymph % (Auto) [place] % (Auto) Eos % (Auto) Baso % (Auto) Lymph # (Auto) [place] # (Auto) Eos # (Auto) Baso # (Auto) Abs Immat Gran (auto) Absolute Neuts (auto) Absolute Nucleated RBC Nucleated RBC % (auto) VBG pH VBG pCO2 VBG pO2 VBG HCO3 VBG O2 Saturation VBG Base Excess POC Glucose 276 H Estimat Average Glucose 148 Hemoglobin A1c % 6.8 H Magnesium 1.7 Blood Type O Positive Antibody Screen NEGATIVE 10/22/23 10/22/23 10/23/23 16:35 20:19 03:05 MCV MCH MCHC RDW Plt Count MPV Immature Gran % (Auto) Neut % (Auto) Lymph % (Auto) [place] % (Auto) Eos % (Auto) Baso % (Auto) Lymph # (Auto) [place] # (Auto) Eos # (Auto) Baso # (Auto) Abs Immat Gran (auto) Absolute Neuts (auto) Absolute Nucleated RBC Nucleated RBC % (auto) VBG pH 7.41 VBG pCO2 54 VBG pO2 32 VBG HCO3 34 H VBG O2 Saturation 52.0 VBG Base Excess 9.0 POC Glucose 271 H 104 Estimat Average Glucose Hemoglobin A1c % Magnesium Blood Type Antibody Screen 10/23/23 10/23/23 07:51 08:05 MCV 92.3 MCH 31.2 MCHC 33.8 RDW 15.5 Plt Count 21 L D MPV 10.9 Immature Gran % (Auto) Cancelled Neut % (Auto) Cancelled Lymph % (Auto) Cancelled [place] % (Auto) Cancelled Eos % (Auto) Cancelled Baso % (Auto) Cancelled Lymph # (Auto) Cancelled [place] # (Auto) Cancelled Eos # (Auto) Cancelled Baso # (Auto) Cancelled Abs Immat Gran (auto) Cancelled Absolute Neuts (auto) 0.4 L Absolute Nucleated RBC 0.020 H Nucleated RBC % (auto) 2.7 H VBG pH VBG pCO2 VBG pO2 VBG HCO3 VBG O2 Saturation VBG Base Excess POC Glucose 235 H Estimat Average Glucose Hemoglobin A1c % Magnesium Blood Type Antibody Screen Assessment and Plan (1) Gram-negative bacteremia: Status: Acute Plan 73/F with acute myeloid leukemia on oral paliative chemotherapy, complicated by pancytopenia, COPD, and HLD, She was admitted through the ICU with septic shock ,pancytopenia, Neutropenic and has pseudomonas bacteremia Septic shock due to psuedomonas bacteremia-required vasopressors in icu repeat blood cx negative was on cefepime 10/11 to 10/16. changed to meropenem 10/16 as cefepime may be contributing to thrombocytopenia has midline as of 10/20 to complete Abx, ideally 14 days, but will treat until no longer neutropenic ANC is still < 1 despite granix daily CXR 10/22 Large right upper to lower lung field infiltrate Adding Vanco to Meropenem Acute hypoxic respiratory failure d/t PNA, + parainfluezae, now increasing O2 requirement and new infiltrate -O2 to keep sat 88 to 94, continue Abx as above Neutropenia--no fever, WBC 0.8, ANC 0.4 -Granix daily until WBC 1K per onc -oncology following and think prognosis is poor Pancytopenia--related to AML -She continues to require intermittent RBC transfusion, -transfuse for Hgb < 7 of if symptomatic -So far rbc 3 units, 13 units of plat, and 1 FFP; an additional 1 unit of RBC today HypOtenison on presenation initially d/t septic shock hypotension on 10/11 d/t anemia resolved Transient AFIB on 10/11-related to anemia, was given dig and metoprolol and converted to sinus -continue metoprolol -no anticoagulation d/t anemia and low platlet, -cardiology following Hyperglycemia, A1C of 6.8 -sliding coverage, HypOkalemia--replace orally PO, and IV Hypomagnesemia--replaced, recheck COPD--no excacerbation continue inhalers, and O2 presently sating 96% on 1L Hypothyroidism on levothyroxine -TSH 7 on 10/20, levothyroxine 125 mg daily Mood disorder/anxiety -ativan PRN severe Protein calorie malnutrition -ensure supplement DNI Poor prognosis compression device for DVT d/t anemia and low plat need to hospitalization -- panyctopenia, treatment for pseudomonas bacteremia PT recommends home with 24 hrs care vs rehab Treatement plan and hospital course, discussed with HCP again (Crystal), at this time, underlying infection is treated. Her blood dyscrasia has not improved despite multiple transfusion for RBC and Platlets, Granix likely from worsening AML and at this point she is not candidate for any other treatment. I have discussed hospice as an option with the health care proxy who will try to discuss with her as well..Her prognosis is poor and recovery from this hospitalization will prove very difficult despite aggressive treatment Quality Stroke Does the patient have a stroke diagnosis?: No VTE Prior VTE?: No VTE Risk Level:: Medical - moderate - high VTE Device Contraindication: N/A - Device Ordered VTE Drug Contraindication: Treatment Not Indicated
[2023-10-23] MEDS: vancomycin HCL 1,250 MG in 0.9 % Sodium Chloride 250 ML 166.67 MG IV (11:26)
[2023-10-23 11:34] LABS: Glucose, Whole Blood 252 mg/dL (60-115)
[2023-10-23 12:10] LABS: Creatinine Clr Calc Pharmacy 47.4; Estimated Glomerular Filt Rate > 60
--- NOTE | 2023-10-23 13:40 | PHA.PROG ---
Admission Date/Time: October 09, 2023 19:35 Indication: Resp Infection Weight in k.7 kg Adjusted body weight in Kg: [place] body weight in Kg: Obesity Dosing Indication % IBW: Serum Creatinine - Last 168 Hours 10/17/23 10/18/23 10/19/23 05:39 09:17 08:00 Creatinine 0.59 0.61 0.69 10/20/23 10/21/23 10/22/23 08:19 09:09 06:23 Creatinine 0.63 0.65 0.71 10/23/23 11:39 Creatinine 0.72 Estimated CrCl and GFR - Last 168 Hours 10/17/23 10/18/23 10/19/23 05:39 09:17 08:00 Estim Creat Clear Calc 57.9 56.0 49.5 Estimated GFR > 60 > 60 > 60 10/20/23 10/21/23 10/22/23 08:19 09:09 06:23 Estim Creat Clear Calc 54.2 52.5 48.1 Estimated GFR > 60 > 60 > 60 10/23/23 11:39 Estim Creat Clear Calc 47.4 Estimated GFR > 60 Vancomycin Loading Dose: 1250 mg Current Vancomycin Dosing Regimen: 1000 mg Q24H Date and Time for next Vancomycin Level to be drawn: 10/24 @ 1000 Pharmacist Comments on Vancomycin Plan: Patient received n adequate load dose on 10/22 @ 1139 Maintenance dose vancomycin 1000 mg Q24H is schedule to start 10/23 @ 1200. Predicted AUC 508 with a trough of 14.4 Level will be drawn prior to the 3rd dose to assess for safety Pharmacy will monitor renal function daily Hina Orlando PharmD Vancomycin dosing will take advantage of [employer] as a clinical decision support tool that uses Bayesian modeling to calculate individual patient's pharmacokinetic parameters and forecast the patient's drug concentration time course with the target goal AUC 24 range of 400 - 600 mg/L/hr.
[2023-10-23 15:50] LABS: Glucose, Whole Blood 241 mg/dL (60-115)
--- NOTE | 2023-10-23 18:18 | PC.NURSE ---
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 CHP in agreement with plan RN aware.
--- NOTE | 2023-10-23 18:25 | W.MHC.ACPN ---
Advanced Care Planning Note Advanced Care Planning Note Time spent (in minutes): 20 Narrative: Overnight, the patient became more short of breath with an increased need for oxygen. A chest X-ray showed pneumonia, and antibiotic coverage was broadened with Vancomycin. Despite this, she has continued to struggle throughout the day, becoming hypothermic and exhibiting increased work of breathing. She had previously elected for no intubation. To the degree that she is able to comprehend, she nods that she does not want life support. Given that she is not able to make a sound decision at this time, I have discussed the unfolding events and the limitations of care with her healthcare proxy (HCP), who believes in and honors the patient's wish for no life support with intubation and wishes to proceed with comfort measures only. I also discussed this with her son over the phone, and he supports the decision for comfort measures only. Morphine and Ativan will be administered for comfort. Problems Discussed (1) Gram-negative bacteremia:
[2023-10-23] MEDS: Scopolamine 1.5 MG PATCH.TD.3 TRANSDERMA (18:43)
[2023-10-23] MEDS: Morphine Sulfate 2 MG/ML CARTRIDGE IVPUSH (18:45)
[2023-10-23] MEDS: LORazepam 2 MG/ML VIAL 0.5 MG IVPUSH (18:45)
[2023-10-24 00:18] VITALS: RESP 26; TEMP 35.8
--- NOTE | 2023-10-24 04:01 | PM.EVENT ---
Event Note Date of Service: 10/24/23 Event Note: I was called to patient's bedside to pronounce the patient. No spontaneous movements were present. There was no response to verbal or tactile stimulus. Pupils were mid dilated and fixed. No breath sounds were appreciated over either lung field. No carotid pulses were palpable. No heart sounds were auscultated over entire precordium. Patient was on comfort measures only. Patient pronounced on 10/24/2023 at 03:45. Tried calling healthcare proxy but no answer Time Spent With Patient Time: Total time managing care of this patient today ____ minutes.
--- NOTE | 2023-10-24 07:14 | PM.DDS ---
Discharge Sum: Prov Provider Primary care physician: Burt Juarez MD Admitting clinician: Cameron Norman Discharge Sum: Diag Contributing Factors (1) Gram-negative bacteremia: Discharge Sum: Summary Date and Time Date of admission: 10/09/23 19:35 Date of : 10/24/23 Time of : 03:45 Summary Details: admission hpi Chief Complaint: Weakness ?The patient is a 73-year-old female with past medical history of? 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 COPD,? anemia, anxiety and depression who presented to the emergency department via EMS for? weakness.? According to EMS,? patient lives independently,? and she told the risks that she was not feeling well,? and the neighbors called? 911.? She was found febrile, weak, confused and incontinent of urine.? In the ED,? she was febrile to 102.2,? tachycardic to 117, tachypneic to 27, and hypotensive to systolic of 70s.? ?Laboratory data was significant for? WBC 0.7,? absolute neutrophils 0.3, platelets 8, ? PT 28.8, INR 2.4, serum bicarb 18, lactic acid? initially 3 increased to 5.4,? and albumin of 3 IMAGING: ?Chest x-ray:? No acute findings ED COURSE:? ?Patient received a total of 2.3 L bolus,? cefepime 2 g, vancomycin 1000 mg,? and Tylenol. hospital course: 73/F with acute myeloid leukemia on oral palliative chemotherapy, complicated by pancytopenia requiring frequent transfusion,, COPD, and HLD,. She was admitted through the ICU with septic shock ,pancytopenia, Neutropenic and has pseudomonas bacteremia and likely pneumonia. Septic shock due to psuedomonas bacteremia- and pneumonirequired while in the ICU she was treated with vasopressors, IVF and antibiotics as follow was on cefepime 10/11 to 10/16. changed to meropenem 10/16 as cefepime may be contributing to thrombocytopenia has midline as of 10/20 to complete Abx, ideally 14 days, but will treat until no longer neutropenic ANC is still < 1 despite granix daily CXR 10/22 Large right upper to lower lung field infiltrate and vancomycin was added, Acute hypoxic respiratory failure d/t PNA, + parainfluezae, Oxygen requirement vacillated and in the end was having increased worked of breathing which led to discussion of comfort measures onlyu Neutropenia--Her WBC remained <1 despite daily granix Pancytopenia--related to AML with suppressed marrow. She had multiple transfusion ,3 units of RBC, 14 units of platlets and 1 unit of FFP HypOtenison on presenation initially d/t septic shock hypotension on 10/11 d/t anemia resolved Transient AFIB on 10/11-related to anemia, was given dig and metoprolol and converted to sinus. Hyperglycemia, A1C of 6.8, consistent withdiabetes HypOkalemia--replace orally PO, and IV as needed Hypomagnesemia--replaced, recheck COPD--there was no excacerbation Hypothyroidism on levothyroxine -was on TS Mood disorder/anxiety--was on ativan prn severe Protein calorie malnutrition -ensure supplement On 10/22 --Overnight, the patient became more short of breath with an increased need for oxygen. A chest X-ray showed pneumonia, and antibiotic coverage was broadened with Vancomycin. Despite this, she has continued to struggle throughout the day, becoming hypothermic and exhibiting increased work of breathing. She had previously elected for no intubation. To the degree that she is able to comprehend, she nods that she does not want life support. Given that she is not able to make a sound decision at this time, I have discussed the unfolding events and the limitations of care with her healthcare proxy (HCP), who believes in and honors the patient's wish for no life support with intubation and wishes to proceed with comfort measures only. I also discussed this with her son over the phone, and he supports the decision for comfort measures only. Morphine and Ativan will be administered for comfort.. She on 10/23 at 3.45 am Final diagnoses: septic shock Pseudomonas bacteremia neutropenia acute hypoxic respiratory failure pneumonia pancytopenia hypokalemia atrial fibrillation severe protein calorie malnutrition hypomagnesemia hyperglycemia/ diabetes hypothyroidism Additional Data Attending physician: Cameron Norman MD
== END 2023-10-24 04:33 | disposition expired | DRG 871 ==
LOC: HO.ED 19:37 → HO.EDOVER 19:42 → HO.ICU 19:47 → HO.IMC 10-10 16:36
PROVIDERS: Family Medicine; Internal Medicine Pulmonary Disease; Student in an Organized Health Care Education/Training Program; Admitting Provider Registered Nurse Community Health; Emergency Provider Emergency Medicine; PCP Internal Medicine Medical Oncology; Visit Provider Internal Medicine
DX: A41.52 Sepsis due to Pseudomonas (principal); E43 Unspecified severe protein-calorie malnutrition; J96.01 Acute respiratory failure with hypoxia; R65.21 Severe sepsis with septic shock; J18.9 Pneumonia, unspecified organism; C92.00 Acute myeloblastic leukemia, not having achieved remission; J44.0 Chronic obstructive pulmonary disease with (acute) lower respiratory infection; D61.818 Other pancytopenia; I48.0 Paroxysmal atrial fibrillation; E03.9 Hypothyroidism, unspecified; E83.42 Hypomagnesemia; F41.9 Anxiety disorder, unspecified; F39 Unspecified mood [affective] disorder; E87.6 Hypokalemia; B34.8 Other viral infections of unspecified site; E11.65 Type 2 diabetes mellitus with hyperglycemia; E78.5 Hyperlipidemia, unspecified; Z51.5 Encounter for palliative care; Z68.20 Body mass index [BMI] 20.0-20.9, adult; T45.1X5A Adverse effect of antineoplastic and immunosuppressive drugs, initial encounter; F17.210 Nicotine dependence, cigarettes, uncomplicated; Z71.6 Tobacco abuse counseling; Z20.822 Contact with and (suspected) exposure to COVID-19; Z79.890 Hormone replacement therapy; Z79.899 Other long term (current) drug therapy
CPT/HCPCS: 0241U; 36410; 36415; 71045; 71250; 74176; 80048; 80051; 80053; 80202; 81001; 81003; 82565; 82803; 82947; 83036; 83605; 83735; 84100; 84443; 84484; 85025; 85027; 85048; 85610; 86850; 86900; 86901; 86923; 87040; 87077; 87186; 87205; 87468; 87469; 87478; 87484; 87633; 87798; 92950; 93005; 94640; 97163; 99285; J0651; J0692; J1160; J1447; J2060; J2185; J2270; J3370; J3371; J3475; J3480; J7120; P9016; P9017; P9047; P9073

== ENCOUNTER → 2023-10-09 19:35 | Outpatient (BNV) | payer MEDICARE, SELFPAY | PROVIDERS: Admitting Provider Registered Nurse Community Health; Emergency Provider Emergency Medicine; PCP Internal Medicine Medical Oncology; Visit Provider Registered Nurse Community Health | DX: A41.9 Sepsis, unspecified organism (principal); R65.21 Severe sepsis with septic shock; D69.6 Thrombocytopenia, unspecified; C92.00 Acute myeloblastic leukemia, not having achieved remission | CPT/HCPCS: 99291 ==

== ENCOUNTER → 2023-10-09 19:35 | Outpatient (BNV) | payer MEDICARE, SELFPAY | PROVIDERS: Admitting Provider Registered Nurse Community Health; Emergency Provider Emergency Medicine; PCP Internal Medicine Medical Oncology; Visit Provider Internal Medicine Cardiovascular Disease | DX: R78.81 Bacteremia (principal); I48.91 Unspecified atrial fibrillation | CPT/HCPCS: 99223 ==

== ENCOUNTER → 2023-10-09 19:35 | Outpatient (BNV) | payer MEDICARE, SELFPAY | PROVIDERS: Admitting Provider Registered Nurse Community Health; Emergency Provider Emergency Medicine; PCP Internal Medicine Medical Oncology; Visit Provider Internal Medicine | DX: R78.81 Bacteremia (principal); D61.818 Other pancytopenia; C92.00 Acute myeloblastic leukemia, not having achieved remission; A41.9 Sepsis, unspecified organism; R65.21 Severe sepsis with septic shock; D69.6 Thrombocytopenia, unspecified | CPT/HCPCS: 99222 ==

== ENCOUNTER → 2023-10-09 19:35 | Outpatient (BNV) | payer MEDICARE, SELFPAY | PROVIDERS: Admitting Provider Registered Nurse Community Health; Emergency Provider Emergency Medicine; PCP Internal Medicine Medical Oncology; Visit Provider Internal Medicine | DX: R78.81 Bacteremia (principal) | CPT/HCPCS: 99232; 99233; 99238; 99497; 99499 ==

== ENCOUNTER → 2023-10-09 19:35 | Outpatient (BNV) | payer MEDICARE, SELFPAY | PROVIDERS: Admitting Provider Registered Nurse Community Health; Emergency Provider Emergency Medicine; PCP Internal Medicine Medical Oncology; Visit Provider Internal Medicine Pulmonary Disease | DX: D61.818 Other pancytopenia (principal); D70.9 Neutropenia, unspecified; R50.81 Fever presenting with conditions classified elsewhere; R78.81 Bacteremia; C92.00 Acute myeloblastic leukemia, not having achieved remission; J44.9 Chronic obstructive pulmonary disease, unspecified | CPT/HCPCS: 99291 ==